=== PATIENT | male | born 1950 | race Caucasian/White ===

== ENCOUNTER 2016-08-29 19:56 | Inpatient (IN) | payer OTHER, MEDICARE ==
[~2016-08-29] VITALS: Ht 175.3 cm; Wt 136.1 kg
[~2016-08-29 19:56] MED LIST: ACIDOPHILUS1 EACH PO; ALBUTEROL2.5 MG/3 M INH/SOL; ATIVAN1 M1 PO; AZITHROMYCIN250 M1 PO; BACLOFEN20 M1 PO; CALCIUM 600+D31 EACH PO; CELEXA20 M1 PO; CO Q-10200 MG PO; DILTIAZEM 24HR120 MG PO; DOXYCYCLINE HY100 M2 PO; DULCOLAX10 M1 RC; DURAGESIC1 EACH TOP; ELIQUIS5 M1 PO; FENTANYL1 EAC4 TOP; FUROSEMIDE20 M1 PO; GABAPENTIN600 M1 PO; MAGNESIUM400 M1 PO; MIRALAX17 G1 PO; MONTELUKAST SOD10 M1 PO; MUCINEX600 M1 PO; MULTI-DAY VITA1 EACH PO; NEXIUM40 M1 PO; NORTRIPTYLINE H10 M2 PO; OXYCODONE-ACET1 EACH PO; POTASSIUM CHLO20 ME2 PO; PREDNISONE10 M2 PO; PROPOLIS PO; REPATHA SU140 MG/1 M SC; RIFADIN300 MG PO; SPIRIVA18 MCG INH; STOOL SOFTENER100 M2 PO; STRATTERA40 M1 PO; VITAMIN C500 M6 PO; VITAMIN E100 UNI2 PO
--- NOTE | 2016-08-29 19:58 | ED UPPER/LOWER EXTREMITY COMPL ---
History of Present Illness General Chief Complaint: Foot or Ankle Injury Stated Complaint: BIBA RIGHT ANKLE INJURY Source: patient Exam Limitations: no limitations Vital Signs & Intake/Output Vital Signs & Intake/Output Vital Signs Date Time Temp Pulse Resp B/P Pulse O2 O2 Flow FiO2 Ox Delivery Rate 08/29 2238 98.0 83 18 149/86 95 Nasal 2.0L Cannula 08/299 95 Nasal 2.0L Cannula 08/29 2000 97.8 117 18 154/95 94 ED Intake and Output 08/30 0000 08/29 1200 Intake Total 60 Output Total Balance 60 Intake, Oral 60 Patient 300 lb Weight Allergies Coded Allergies: haloperidol (From HALDOL) (SWELLING 04/12/16) heparin (SWELLING 04/12/16) vancomycin (HIVES, SKIN CRACKES, TURNS RED, SWELLS AND PEELS 04/12/16) warfarin (SWELLS, TURNS, RED, HIVES, SKIN CRACKS AND PEELS 04/12/16) Reconcile Medications Albuterol Sulfate (Ventolin Hfa) 90 MCG HFA.AER.AD 2 PUF INH Q4H RESPIRATORY (Reported) Ascorbate Calcium (Vitamin C) 500 MG TABLET 1 TAB PO BID SUPPLEMENT (Reported ) Atomoxetine HCl (Strattera) 40 MG CAPSULE 1 CAP PO QAM MENTAL HEALTH ( Reported) Baclofen 20 MG TABLET 1 TAB PO BID MUSCLE RELAXER (Reported) Bisacodyl (Dulcolax) 10 MG SUPP.RECT 1 SUP RC EOD GI (Reported) Diltiazem HCl (Diltiazem 24HR ER) 120 MG CAP.ER.24H 1 CAP PO DAILY HEART/BP ( Reported) Evolocumab (Repatha Sureclick) 140 MG/ML PEN.INJCTR 1 ML SC Q2W CHOLESTEROL ( Reported) Fentanyl (Duragesic) 25 MCG/HOUR PATCH.TD72 1 PAT TOP Q3D BACK PAIN (Reported ) Furosemide 20 MG TABLET 1 TAB PO EOD DIURETIC (Reported) Gabapentin 600 MG TABLET 1 TAB PO TID NEUROPATHY (Reported) Guaifenesin (Mucinex) 600 MG TAB.ER.12H 2 TAB PO BID MUCUS (Reported) Lactobacillus Acidophilus (Acidophilus) 1 EACH CAPSULE 1 CAP PO BID PROBIOTIC (Reported) Lorazepam (Ativan) 1 MG TABLET 1 TAB PO BID ANXIETY (Reported) Magnesium Oxide (Magnesium) 400 MG CAPSULE 1 CAP PO 0600 SUPPLEMENT (Reported ) Montelukast Sodium (Singulair) 10 MG TABLET 1 TAB PO DAILY ASTHMA (Reported) Multivitamin (Multi-Day Vitamins) 1 EACH TABLET 1 TAB PO DAILY SUPPLEMENT ( Reported) Nortriptyline HCl 10 MG CAPSULE 1 CAP PO QPM MENTAL HEALTH (Reported) Oxycodone HCl/Acetaminophen (Oxycodone-Acetaminophen 5-325) 5 MG-325 MG TABLET 1-2 TAB PO Q4H PRN PAIN (Reported) Pantoprazole Sodium (Protonix) 40 MG TABLET.DR 1 TAB PO DAILY ACID REFLUX ( Reported) Potassium Chloride 20 MEQ TAB.ER.PRT 1 TAB PO DAILY SUPPLEMENT (Reported) Rifampin (Rifadin) 300 MG CAPSULE 1 CAP PO BID MRSA PROPHYLAXIS (Reported) Tiotropium [place] (Spiriva) 18 MCG CAP.W.DEV 1 CAP INH DAILY BREATHING ( Reported) Vitamin E Mixed (Vitamin E) (Unknown Strength) TABLET (Unknown Dose) PO DAILY SUPPLEMENT (Reported) Triage Nurses Notes Reviewed? yes Onset: Abrupt Duration: constant Timing: single episode today Severity: severe Severity Numbers: 10 Pain/Injury Location: Right: Ankle. 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 Patient was brought in by ambulance Patient denies any head strike and pain is localized to the right ankle. (EMILIA MARSH) Past History Travel History Traveled to [place] past 21 day No Medical History Any Pertinent Medical History? 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 No (EMILIA MARSH) Review of Systems Review of Systems Constitutional: Reports: no symptoms. EENTM: Reports: no symptoms. Respiratory: Reports: no symptoms. Cardiovascular: Reports: no symptoms. Gastrointestinal/Abdominal: Reports: no symptoms. Genitourinary: Reports: no symptoms. Musculoskeletal: Reports: see HPI, joint pain, joint swelling. Skin: Reports: no symptoms. Neurological/Psychological: Reports: no symptoms. Hematologic/Endocrine: Reports: no symptoms. Immunological: Reports: no symptoms. All Other Systems: Reviewed and Negative (EMILIA MARSH) Physical Exam Physical Exam General Appearance: mild distress Neurologic/Tendon: normal sensation, normal motor functions, normal tendon functions, responds to pain, no evidence tendon injury, no pulse deficit Skin: intact, normal color, warm/dry Comments: HEENT: Normal EENT exam, Neck: Supple, no lymphadenopathy, normal range of motion without pain or tenderness Back: Nontender, no CVA tenderness. Cardiovascular: Tachycardia no murmurs rubs or gallops, normal JVP Respiratory: Chest nontender. No respiratory distress.breath sounds clear to auscultation bilaterally Abdomen: Soft, nontender nondistended, no appreciable organomegaly. Normal bowel sounds. No ascites Extremity: Right hip nontender normal inspection straight leg raise performed Right knee nontender normal inspection Right ankle noted mild deformity and swelling and point tenderness Right foot nontender pedal pulse +2 capillary refill less than 2 seconds Right lower extremity dermatomes intact Neuro: Alert oriented x3, motor sensory normal, Skin: No appreciable rash on exposed skin, skin is warm and dry. Psych: Mood and affect is normal, memory and judgment is normal. (EMILIA MARSH) Progress Differential Diagnosis: arterial insufficiency, compartment syndrome, contusion, dislocation, DVT, fracture, gout, septic arthritis, sprain, tendon injury Plan of Care: Orders Procedure Date/time Status Nothing by Mouth 08/30 B Active Vital Signs 08/30 37 Complete Teach/Educate 08/30 37 Active Pain Treatment and Response 08/30 37 Active Nutritional Intake, Monitor 08/30 37 Active Isolation 08/30 37 Active Intake & Output 08/30 37 Complete Patient Care Conference 08/30 37 Active Activity/Ambulation 04/10 0038 Active Pathway - chart 08/30 0008 Active Heat/Cold Therapy 08/30 0008 Active PT Evaluate & Treat 08/30 0003 Active Code Status 08/29 2304 Active TRC EVALUATION (GEN) 08/29 2250 Active OXYGEN SETUP (GEN) 08/29 2250 Active Pathway - chart 08/29 2250 Active House Staff 08/29 2250 Active Patient Data 08/29 2250 Active Saline Lock 08/29 2238 Active Misc Message 08/29 2238 Active ED Holding Orders 08/29 2238 Active Admit to inpatient 08/29 2238 Active Vital Signs 08/29 2238 Active Code Status 08/29 2238 Complete Patient Data 08/29 2228 Active Intake & Output 08/29 2208 Active EKG 08/29 2108 Active PARTIAL THROMBOPLASTIN TIME 08/29 2005 Complete PROTHROMBIN TIME 08/29 2005 Complete COMPREHENSIVE METABOLIC PANEL 08/30 2003 Complete CBC WITHOUT DIFFERENTIAL 08/29 2002 Complete TYPE & SCREEN (NOT X-MATCH) 08/29 2002 Complete VTE Mechanical Prophylaxis 08/29 UNK Active Vital Signs 08/29 UNK Complete MISTAKE 08/29 UNK Active Hemoccult 08/29 UNK Active Current Medications Sig/Danni Start time Last Medication Dose Stop Time Status Admin Acetaminophen 325 MG Q6P PRN 08/30 0015 AC (Tylenol) Hydromorphone HCl 0.4 MG Q6P PRN 08/30 0015 AC (Dilaudid) Oxycodone/ 1 TAB Q6P PRN 08/30 0015 AC Acetaminophen (Percocet) Laboratory Tests 08/29/161: Anion Gap 8, Estimated GFR > 60, BUN/Creatinine Ratio 26.7 H, Glucose 209 H, Calcium 10.1, Total Bilirubin 0.5, AST 44, ALT 80 H, Alkaline Phosphatase 77, Total Protein 7.1, Albumin 3.6, Globulin 3.5, Albumin/Globulin Ratio 1.0 L, PT 12.5, INR 1.19 H, APTT 31, CBC w Diff NO MAN DIFF REQ, RBC 4.77, MCV 90.1, MCH 29.1, RDW 15.2 H, MPV 8.0, Gran % 81.6 H, Lymphocytes % 8.7 L, Monocytes % 7.2, Eosinophils % 2.5, Basophils % 0 L, Absolute Granulocytes 12.8 H, Absolute Lymphocytes 1.4, Absolute Monocytes 1.1 H, Absolute Eosinophils 0.4, Absolute Basophils 0, PUBS MCHC 32.4 L No concerns of right lower extremity neurovascular compromise. No concerns of dislocation, patient does have bimalleolar fracture on x-ray findings. I discussed patient with Dr. MAN in which no emergent surgical intervention is warranted in this case Patient due to significant gait assistance necessities and fall risk and due to bimalleolar fracture that return to private residence in the emergency room with be a significant detriment to the patient and further fall risk may occur. Discussed admission with case management who approved of admission in which patient will require a three-day stay and most likely have short-term rehabilitation Posterior ankle and sugar tong splint were applied by me per he and post neurovascular was intact. Patient was given IV Dilaudid for pain which he had significant resolution of his pain (CURTIS PACKER,EMILIA) Diagnostic Imaging: Viewed by Me: Radiology Read. Radiology Impression: acute abnormality Initial ED EKG: SINUS TACHYCARDIA 109 BPM Comments: PATIENT: ESTUARDO PEREZ PRESENT AGE: 66 PATIENT ACCOUNT NO: [id number] : 49 LOCATION: [facility] ORDERING PHYSICIAN: EMILIA PACKER SERVICE DATE: 08/29/16 EXAM TYPE: RAD - XRY-ANKLE 3 OR MORE VIEWS R EXAMINATION: XR ANKLE, RIGHT CLINICAL INFORMATION: Trauma COMPARISON: None TECHNIQUE: AP, lateral, and mortise views of the right ankle. FINDINGS: There is a displaced oblique fracture involving the distal right fibula. There is lateral displacement of the distal fracture fragments. There is widening of the lateral aspect of the ankle mortise. The talar dome appears intact. There are a few fragments of bone within the ankle mortise likely related to acute injury. There is a mildly displaced fracture involving the medial malleolus with medial and inferior displacement of the distal fracture fragment. There is extensive soft tissue swelling surrounding the base of the right ankle which appears relatively hyperdense suggesting hematoma. No other definite fractures visualized. IMPRESSION: Bimalleolar comminuted mildly fractures as described with several tiny bony fragments within the ankle mortise. DICTATED BY: NEO NIETO MD DATE/TIME DICTATED:08/29/162040 MARBLE INSTALLER:PAULO (EMILIA MARSH) Departure Departure Disposition: STILL A PATIENT Condition: Stable Clinical Impression Primary Impression: Bimalleolar fracture of right ankle Referrals: STACI VOGEL,LALA Gray (PCP/Family) Departure Forms: Customer Survey General Discharge Information Admission Note Spoke With: PONCHO LOPEZ MD Documentation of Exam: Documentation of any treatments & extenuating circumstances including Concerns Regarding Discharge (functional status, medication knowledge or non-compliance, living conditions, etc.) that warrant an admission rather than observation: [ Discussed admission with Dr. LOPEZ who agrees with general medicine admission for concerns of bimalleolar fracture and fall risk. Patient will require with orthopedic consultation, IV pain medication and possible short-term placement to rehabilitation facility. Outpatient treatment at this time would be medically harmful] (EMILIA MARSH) PA/MEDICAL AFFAIRS SPECIALIST Co-Sign Statement Statement: ED Attending supervision documentation- [] I saw and evaluated the patient. I have also reviewed all the pertinent lab results and diagnostic results. I agree with the findings and the plan of care as documented in the PA's/MEDICAL AFFAIRS SPECIALIST's documentation. [x] I have reviewed the ED Record and agree with the PA's/MEDICAL AFFAIRS SPECIALIST's documentation. [] Additions or exceptions (if any) to the PAs/MEDICAL AFFAIRS SPECIALIST's note and plan are summarized below: [] ([place] VOGEL,JENNA Baptiste) Procedures Splinting Location: RIGHT ANKLE Manual Alignment Performed: No Hand-Made Type: orthoglass Splint: SUGAR TONG AND POSTERIOR ANKLE Splint Applied By: splint applied by me Pre-Proc Neuro Vasc Exam: normal Post-Proc Neuro Vasc Exam: normal (EMILIA MARSH) Critical Care Note Critical Care Note Critical Care Time: 30-74 min (EMILIA MARSH)
--- NOTE | 2016-08-29 20:47 | RADIOLOGY REPORT ---
EXAMINATION: XR ANKLE, RIGHT CLINICAL INFORMATION: Trauma COMPARISON: None TECHNIQUE: AP, lateral, and mortise views of the right ankle. FINDINGS: There is a displaced oblique fracture involving the distal right fibula. There is lateral displacement of the distal fracture fragments. There is widening of the lateral aspect of the ankle mortise. The talar dome appears intact. There are a few fragments of bone within the ankle mortise likely related to acute injury. There is a mildly displaced fracture involving the medial malleolus with medial and inferior displacement of the distal fracture fragment. There is extensive soft tissue swelling surrounding the base of the right ankle which appears relatively hyperdense suggesting hematoma. No other definite fractures visualized. IMPRESSION: Bimalleolar comminuted mildly fractures as described with several tiny bony fragments within the ankle mortise.
[2016-08-29 20:51] LABS: ABSOLUTE BASOPHIL COUNT 0 /CUMM (0.0-0.2); ABSOLUTE EOSINOPHIL COUNT 0.4 /CUMM (0.0-0.7); ABSOLUTE GRANULOCYTE CT 12.8 /CUMM (1.4-6.5); ABSOLUTE LYMPH COUNT 1.4 /CUMM (1.2-3.4); ABSOLUTE MONOCYTE COUNT 1.1 /CUMM (0.10-0.60); BASOPHIL % 0 % (0.0-2.0); EOSINOPHIL % 2.5 % (0-5); GRANULOCYTE % 81.6 % (42.2-75.2); MEAN CORPUSCULAR HGB 29.1 PG (27.0-31.0); MEAN CORPUSCULAR HGB CONC 32.4 G/DL (33.0-37.0); MEAN CORPUSCULAR VOLUME 90.1 FL (80.0-94.0); PLATELET COUNT 213 /CUMM (130-400); RBC DISTRIBUTION WIDTH 15.2 % (11.5-14.5); RED BLOOD CELL CT 4.77 /CUMM (4.70-6.10); WHITE BLOOD CELL COUNT 15.7 /CUMM (4.8-10.8)
[2016-08-29 21:04] LABS: PT 12.5 SEC (9.4-12.5); PTT 31 SEC (25-37)
[2016-08-29] MEDS ORDERED: SINGULAIR10 M1 PO (21:39)
[2016-08-29] MEDS ORDERED: PROTONIX40 M3 PO (21:41)
[2016-08-29] MEDS ORDERED: SPIRIVA18 MCG INH (21:44)
[2016-08-29] MEDS ORDERED: PREDNISONE5 M1 PO (21:45)
--- NOTE | 2016-08-30 00:43 | History & Physical ---
ROSALBA GARZA 08/30/16 0043: General Information and HPI MD Statement: I have seen and personally examined ESTUARDO PEREZ and documented this H&P. The patient is a 66 year old M who presented with a patient stated chief complaint of right ankle pain status post fall. 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 According to the patient he was in his normal state of health, patient was transferring from the toilet to his wheelchair where he subsequently fell and twisted his right ankle resulting in acute onset of sharp stabbing severe pain, 10 out of 10 and nonradiating. Patient reports hitting his head to the floor, however denied loss of consciousness. Denied any lightheadedness or dizziness before the event. He remembers the whole event. Denied any headache, weakness or sensory changes. Patient denied any fever, chills, chest pain, racing of heart, difficulty breathing, nausea, vomiting, abdominal pain, constipation or diarrhea. He is under straight cath protocol every 3-4 hours. He does have chronic cough from COPD. Denies any sick contacts or travel history. Denies smoking, alcohol abuse, illicit drug use. He has 2 visiting nurse aids to help him. patient does partially weight-bear with assistance of a walker and uses a wheelchair. He follows Kiran Bustillos MD grocery specialist and Dr. kasper car framer. According to the patient he was on eliqus 5 mg twice a day for atrial fibrillation. However he stopped eliqus 3 months ago as he feels he doesn't have atrial fibrillation. However he is on aspirin and Cardizem. He was admitted at [facility] in March 2016 for acute hypoxic respiratory failure secondary to COPD. Allergies/Medications Allergies: Coded Allergies: haloperidol (From HALDOL) (SWELLING 04/12/16) heparin (SWELLING 04/12/16) vancomycin (HIVES, SKIN CRACKES, TURNS RED, SWELLS AND PEELS 04/12/16) warfarin (SWELLS, TURNS, RED, HIVES, SKIN CRACKS AND PEELS 04/12/16) Compliance With Home Meds: GOOD Past History Travel History Traveled to [place] past 21 day No Medical History Neurological: NONE EENT: NONE Cardiovascular: AFIB, hypertension, hyperlipidemia Respiratory: asthma, COPD Gastrointestinal: NONE Hepatic: NONE Renal: neurogenic bladder Musculoskeletal: PARAPLEGIA FROM mrsa INFECTION OF SPINE Psychiatric: NONE Endocrine: NONE Blood Disorders: NONE Cancer(s): NONE CIRCLE EDGER/Reproductive: NONE History of MRSA: Yes History of VRE: No History of CDIFF: No Surgical History Surgical History: non-contributory Past Family/Social History Family History Relations & Conditions if any Relation not specified for: *No pertinent family history Psychosocial History Who Do You Live With? partner Services at Home: Home Health Aide, SAFETY LEAD MORNING & EVENING Primary Language: Burundian Smoking Status: Former Smoker ETOH Use: denies use Illicit Drug Use: denies illicit drug use Functional Ability ADLs Needs Assist: dressing, eating, toileting, bathing. Ambulation: wheelchair IADLs Independent: shopping, housework, finances, food prep, telephone, transportation , medication admin. Review of Systems Review of Systems Constitutional: Denies: chills, diaphoresis, fever, malaise, weakness, unexplained weight loss. EENTM: Denies: visual changes, hearing changes, nasal congestion, nasal pain, throat pain. Cardiovascular: Reports: peripheral edema. Denies: chest pain, orthopena, palpitations, syncope. Respiratory: Reports: cough, orthopnea. Denies: hemoptysis, short of breath, sputum production, stridor, wheezing. GI: Denies: abdominal pain, bloating, constipation, diarrhea, nausea, vomiting. Genitourinary: Denies: frequency, nocturia, pain, urgency (on straight cath protocol). Musculoskeletal: Reports: back pain, joint pain. Skin: Denies: no symptoms. Neurological/Psychological: Denies: anxiety, ataxia, confusion, depressed, dementia, headache, numbness, tingling, tremors. Exam & Diagnostic Data Last 24 Hrs of Vital Signs/I&O Vital Signs Date Time Temp Pulse Resp B/P Pulse O2 O2 Flow FiO2 Ox Delivery Rate 08/30 0208 95 Nasal 2.0L Cannula 08/30 0142 95 Nasal 2.0L Cannula 08/30 0115 97.8 100 24 174/88 95 Nasal 2.0L Cannula 08/29 2239 98.0 83 18 149/86 95 Nasal 2.0L Cannula 08/299 95 Nasal 2.0L Cannula 08/29 2000 97.8 117 18 154/95 94 Intake & Output 08/30 0800 08/30 0000 08/29 1600 Intake Total 60 Output Total Balance 60 Intake, Oral 60 Patient 136.078 kg 136.078 kg Weight Physical Exam General Appearance Alert, Oriented X3, Cooperative, No Acute Distress Skin No Rashes, No Breakdown HEENT Atraumatic, PERRLA, EOMI, Mucous Membr. moist/pink Neck Supple, No JVD Lymphatic Axillary nl, Cervical nl Cardiovascular Normal S1, Normal S2, No Murmurs Lungs Normal Air Movement, b/l wheezes Abdomen Normal Bowel Sounds, Soft, No Tenderness Neurological Normal Speech, Cranial Nerves 3-12 NL, Reflexes 2+, couldnt move lower ext- paraplegia Extremities No Clubbing, No Cyanosis, No Edema Vascular Normal Pulses Last 24 Hrs of Labs/Bryan: Laboratory Tests 08/29/162040: Anion Gap 8, Estimated GFR > 60, BUN/Creatinine Ratio 26.7 H, Glucose 209 H, Calcium 10.1, Total Bilirubin 0.5, AST 44, ALT 80 H, Alkaline Phosphatase 77, Total Protein 7.1, Albumin 3.6, Globulin 3.5, Albumin/Globulin Ratio 1.0 L, PT 12.5, INR 1.19 H, APTT 31, CBC w Diff NO MAN DIFF REQ, RBC 4.77, MCV 90.1, MCH 29.1, RDW 15.2 H, MPV 8.0, Gran % 81.6 H, Lymphocytes % 8.7 L, Monocytes % 7.2, Eosinophils % 2.5, Basophils % 0 L, Absolute Granulocytes 12.8 H, Absolute Lymphocytes 1.4, Absolute Monocytes 1.1 H, Absolute Eosinophils 0.4, Absolute Basophils 0, PUBS MCHC 32.4 L Assessment/Plan Assessment: This is a 66-year-old male with past medical history significant for COPD on 2 L home oxygen, history of intubation, bilateral lower extremity edema on Lasix, hypertension, hyperlipidemia, atrial fibrillation not on anticoagulants, history of ASTHMA, neurogenic bladder, depression, constipation, coronary artery disease status post stent placement, IVC filter placement, 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 Vitals on admission- afebrile, tachycardic 117, respiratory rate 18, blood pressure 154/95, saturating at 94 on room air. Labs-leukocytosis 15.7. Glucose 209, alt 80. Ankle x-ray Bimalleolar comminuted mildly fractures as described with several tiny bony fragments within the ankle mortise. Problem list 1. Right ankle bimalleolar comminuted fracture 2. Leukocytosis 3. COPD on 2 L oxygen 4. Chronic lower extremity edema 5. Atrial fibrillation not on anticoagulation 6. Hypertension 7. Hyperlipidemia 8. Neurogenic bladder 9. Depression 10. Constipation 11 history of MRSA spine abscess 12. Chronic back pain 13. Neuropathy 14. Anxiety 15. GERD 16. JELANI not on CPAP Right ankle bimalleolar comminuted fracture Patient presented with acute onset of right ankle pain status post witnessed a mechanical fall. 10 out of 10, sharp and stabbing, nonradiating. Ankle x-ray showed Bimalleolar comminuted mildly fractures as described with several tiny bony fragments within the ankle mortise. * Patient was admitted to general medicine floor for further management and rehabilitation placement * Monitor vitals closely * Maintain oxygen saturation above 90% * Monitor WBC count * Leukocytosis 15.7 on admission most possibly from stress * Afebrile * Pain management * Mild pain-Tylenol * Moderate pain-Percocet * Severe pain IV Dilaudid * Ortho consultation * PT evaluation Leukocytosis Most likely reactive WBC 15.7 Will check in the morning Monitor for fevers or chills Chronic lower extremity edema usually takes Lasix 60 every other day COPD History of COPD on 2 L oxygen at home Total respiratory care albuterol nebs montelukast atrial fibrillation According to the patient he was on eliqus 5 mg twice a day for atrial fibrillation. However he stopped eliqus 3 months ago as he feels he doesn't have atrial fibrillation. * Continue home dose of Cardizem * Continue aspirin Hyperlipidemia Patient usually takes evolocumab every 2 weeks. Neurogenic bladder On straight cath protocol every few hours Muscle spasms Continue baclofen History of MRSA spine abscess Patient is on prophylaxis Continue rifampin and doxycycline prophylaxis Neuropathy Continue gabapentin Anxiety Takes Ativan when necessary GERD Takes pantoprazole Obstructive sleep apnea Not on CPAP now Hyperglycemia Sugar 219 on admission Accu-Cheks Insulin sliding scale Will check HbA1c DVT prophylaxis DNR/DNI Pain management Regular diet As Ranked By This Provider Problem List: 1. ATRIAL FIBRILATION 2. Bimalleolar fracture of right ankle Core Measures/Miscellaneous Acute Coronary Syndrome ACS Diagnosis: No Cerebrovascular Accident CVA/TIA Diagnosis: No Congestive Heart Failure CHF Diagnosis: No Venous Thromboembolism VTE Risk Factors: Age > 40, Immobility, paresis No Mech VTE prophylaxis d/t: No contraindications No VTE Pharm Prophylaxis d/t: No contraindications VTE Diagnosis: No VTE Type: NONE VTE Confirmed by (Test): NONE Severe Sepsis Severe Sepsis Present: No Septic Shock Septic Shock Present: No Miscellaneous Documentation Attending Case Discussed With: PONCHO LOPEZ MD Primary Care Physician: LALA SMALL MD Patient sees these Specialists Religious Education Coordinator Components Engineer Level of Patient Care: General Medicine DOUG RODRIGUEZ 08/30/16 0103: General Information and HPI Allergies/Medications Home Med list Albuterol Sulfate (Ventolin Hfa) 90 MCG HFA.AER.AD 2 PUF INH Q4H RESPIRATORY (Reported) Ascorbate Calcium (Vitamin C) 500 MG TABLET 1 TAB PO BID SUPPLEMENT (Reported ) Aspirin (Ecotrin*) 81 MG TABLET.DR 1 TAB PO DAILY HEART (Reported) Atomoxetine HCl (Strattera) 40 MG CAPSULE 1 CAP PO QAM MENTAL HEALTH ( Reported) Baclofen 20 MG TABLET 1 TAB PO BID MUSCLE RELAXER (Reported) Bisacodyl (Dulcolax) 10 MG SUPP.RECT 1 SUP RC EOD GI (Reported) Diltiazem HCl (Diltiazem 24HR ER) 120 MG CAP.ER.24H 1 CAP PO DAILY HEART/BP ( Reported) Doxycycline Hyclate 100 MG CAPSULE 1 CAP PO BID infection (Reported) Evolocumab (Repatha Sureclick) 140 MG/ML PEN.INJCTR 1 ML SC Q2W CHOLESTEROL ( Reported) Furosemide 20 MG TABLET 3 TAB PO EOD DIURETIC (Reported) Gabapentin 600 MG TABLET 1 TAB PO TID NEUROPATHY (Reported) Guaifenesin (Mucinex) 600 MG TAB.ER.12H 2 TAB PO BID MUCUS (Reported) Lactobacillus Acidophilus (Acidophilus) 1 EACH CAPSULE 1 CAP PO BID PROBIOTIC (Reported) Lorazepam (Ativan) 1 MG TABLET 1 TAB PO BID ANXIETY (Reported) Magnesium Oxide (Magnesium) 400 MG CAPSULE 1 CAP PO 0600 SUPPLEMENT (Reported ) Montelukast Sodium (Singulair) 10 MG TABLET 1 TAB PO DAILY ASTHMA (Reported) Multivitamin (Multi-Day Vitamins) 1 EACH TABLET 1 TAB PO DAILY SUPPLEMENT ( Reported) Nortriptyline HCl 10 MG CAPSULE 1 CAP PO QPM MENTAL HEALTH (Reported) Oxycodone HCl/Acetaminophen (Oxycodone-Acetaminophen 5-325) 5 MG-325 MG TABLET 1-2 TAB PO Q4H PRN PAIN (Reported) Pantoprazole Sodium (Protonix) 40 MG TABLET.DR 1 TAB PO DAILY ACID REFLUX ( Reported) Potassium Chloride 20 MEQ TAB.ER.PRT 1 TAB PO DAILY SUPPLEMENT (Reported) Rifampin (Rifadin) 300 MG CAPSULE 1 CAP PO BID MRSA PROPHYLAXIS (Reported) Tiotropium [place] (Spiriva) 18 MCG CAP.W.DEV 1 CAP INH DAILY BREATHING ( Reported) Resident Review Statement Resident Statement: examined this patient, discussed with computer science intern, agreed with computer science intern Other Findings: Chief complaint: "Right ankle pain" This is a 66-year-old gentleman with past medical history significant for COPD on 2 L home oxygen, MRSA infection of the spine on rifampin and doxycycline, neuropathy, GERD, JELANI not on CPAP, CAD status post stent placement, hypertension , hyperlipidemia, bilateral lower extremity edema, atrial fibrillation not on anticoagulation, asthma, depression, neurogenic bladder who presents to the hospital for right ankle pain status post mechanical fall. Patient stopped his Eliquis 3 months ago by himself and mentions that his car framer Dr. Kasper is aware. Please see above for more details. Vital signs on admission: Temperature 97.8, pulse 800, respiratory rate 20, blood pressure 170/88, oxygen saturation 95% on 2 L nasal cannula oxygen. Physical exam at the time of admission: NAD, AO 3. HEENT: H NCAT, PERRLA, EOMI , moist mucous membrane, normal pharynx. Neck: Supple, no JVD, no carotid bruit. CV: RRR, no murmur. Lungs: CTA BL. Abdomen: Normal bowel sounds, soft, ND, NT. Extremities: No edema, Left lower extremity on ankle plastic splint. Posterior ankle and sugar tong splint noted on right lower extremity. Pulses intact. Neurology: Normal speech, Cranial nerves III-12 intact, normal reflexes. Right ankle x-ray on admission: Bimalleolar comminuted mildly fractures as described with several tiny bony fragments within the ankle mortise. EKG on admission: Sinus tachycardia, rate 109, no ST-T wave abnormalities, QTC 431. Echocardiogram 04/06/2010: Normal ejection fraction, mild MR, mild TR, RV systolic pressure 64. Trace TX. Mildly dilated aortic root. Problem list/plan: #Bimalleolar right ankle fracture: Orthopedic was consulted in the ED who wants to operate on the patient after a week. For now will admit the patient to general medicine floor. Adequate pain management with Tylenol, Percocet, Dilaudid. Orthopedic consult. PT evaluation. #Leukocytosis: Patient had WBC of 15.7 on admission. There is no clinical indication for an infection. Likely reactive. We will recheck levels in the morning. #Hyperglycemia: Patient presented with glucose of 209 on admission. No symptoms including polyuria, polydipsia. Accu-Cheks twice a day, Will check hemoglobin A1c. #GERD: Will maintain the patient on PPIs. #The patient is on straight cath every 3 hours at home. Will continue the same. #Will continue with TRANSPORT TRUCK DRIVER Cardizem, baclofen, rifampin, doxycycline, gabapentin, nortriptyline, lorazepam. #Please confirm patient's home medications with his PCP. #DVT prophylaxis: Alps. #Patient is DNI/DNR #Of note, patient is allergic to warfarin and heparin. JOHN VOGEL, [facility] 08/30/16 0643: Attending MD Review Statement Attending Statement Attending MD Statement: examined this patient, discuss w/resident/PA/VAMP MAKER, agreed w/resident/PA/VAMP MAKER Attending Assessment/Plan: 66 yo morbidly obese M with h/o chronic hypoxic respiratory failure, stage IV COPD on 2L O2, Afib not on Eliquis anymore, CAD s/p stent, HTN, MRSA bacteremia/ endocarditis with T6-7 spinal abscess that was never drained resulting in paraparesis now on chronic suppressive therapy with doxycycline and rifampin, PE s/p IVC filter, JELANI not using CPAP, recently admitted for COPDE (Mar 2016); is here s/p mechanical fall resulting in right ankle fracture. No syncope or head strike. Of note, patient has been off Eliquis and Dr. Kasper (Components Engineer) is aware, the reason being it is unclear if he has Afib. VSS. Labs: WBC 15.7, bicarb 37, glucose 209, ALT 80. EKG: Sinus tachycardia. Ankle Xray: bimalleolar comminuted fracture of ankle mortise. 1. Mechanical fall with resultant right ankle mortise fracture. GM admit, pain management, Ortho consult, assess timing of repair. Patient will need Cardiology and pulmonary clearance prior to ankle repair surgery. PT eval and placement. Case management consult. 2. Paraparesis. Continue straight cath protocol, and chronic suppression therapy with doxycycline and rifampin. 3. Leukocytosis likely reactive. DVT ppx Alps (patient allergic to heparin). DNR/I.
[2016-08-30 01:15] VITALS: BP 174/88
[2016-08-30] MEDS ORDERED: DOXYCYCLINE HY100 M2 PO (01:16)
[2016-08-30] MEDS ORDERED: ASPIRIN EC81 M1 PO (01:51)
--- NOTE | 2016-08-30 06:34 | Admission Certification ---
Admission Certification Certification Statement - As attending physician, I certify that at the time of - admission, based on clinical presentation, severity of - symptoms, need for further diagnostic testing and - therapeutic interventions, and risk of adverse outcomes - without in-hospital treatment, in my clinical assessment, - this patient requires an acute hospital stay for a minimum - of two nights or longer. I have also considered psychsocial - factors such as support system, advanced age, financial - issues, cognitive issues, and failed out-patient treatments, - past re-admission history, safety of patient, and lack of - compliance as applicable. Specific rationale supporting this admission is: Mechanical fall, bimalleolar right ankle fracture needs Ortho consult, possible repair, PT and placement.
[2016-08-30 06:51] VITALS: BP 160/83
--- NOTE | 2016-08-30 07:42 | PN- Housestaff ---
Subjective Follow-up For: Right ankle pain status post mechanical fall Subjective: Patient reports that his pain is better. Currently the leg is Nahum bandaged. Denies chest pain, palpitations, shortness of breath, dizziness, syncope Patient reports he has been off of a Eliquis, for the last 3 months and his primary activity specialist aware. Review of Systems Constitutional: Reports: see HPI. Objective Last 24 Hrs of Vital Signs/I&O Vital Signs Date Time Temp Pulse Resp B/P Pulse O2 O2 Flow FiO2 Ox Delivery Rate 08/30 1035 93 Nasal 2.0L Cannula 08/30 08 Nasal 2.0L Cannula 08/30 08 96 Nasal 2.0L Cannula 08/30 0800 94 Nasal 2.0L Cannula 08/30 0651 97.7 104 24 160/83 96 Nasal 2.0L Cannula 08/30 0208 95 Nasal 2.0L Cannula 08/30 0142 95 Nasal 2.0L Cannula 08/30 0115 97.8 100 24 174/88 95 Nasal 2.0L Cannula 08/29 2239 98.0 83 18 149/86 95 Nasal 2.0L Cannula 08/29 2209 95 Nasal 2.0L Cannula 08/29 2000 97.8 117 18 154/95 94 Intake & Output 08/30 1600 08/30 0800 08/30 0000 Intake Total 150 60 Output Total Balance 150 60 Intake, Oral 150 60 Patient 300 lb 300 lb Weight Physical Exam General Appearance: Alert, Oriented X3, Cooperative, No Acute Distress, Morbidly obese Skin: No Rashes Cardiovascular: Regular Rate, Normal S1, Normal S2, No Murmurs Lungs: Clear to Auscultation Abdomen: Normal Bowel Sounds, Soft, No Tenderness Neurological: Normal Speech Extremities: No Clubbing, No Cyanosis, No Edema, right ankle Nahum bandage in place. Current Medications: Current Medications Sig/Danni Start time Last Medication Dose Route Stop Time Status Admin Acetaminophen 325 MG Q6P PRN 08/30 0015 AC PO Albuterol Sulfate 3 ML EVERY 4 HRS/AWAKE 08/30 1200 AC 08/30 INH 1031 Albuterol Sulfate 3 ML ONCE ONE 08/30 0215 DC 08/30 INH 08/30 0216 0205 Aspirin Buffered 81 MG DAILY 08/30 1000 AC 08/30 PO 09 Baclofen 20 MG BID 08/30 0114 AC 08/30 PO 0914 Diltiazem HCl 120 MG DAILY 08/30 1000 AC 08/30 PO 0914 Doxycycline Hyclate 100 MG BID 08/30 0117 AC 08/30 PO 09 Gabapentin 600 MG Q8 08/30 0600 AC 08/30 PO 09 Hydromorphone HCl 0.4 MG Q6P PRN 08/30 0015 DC IV Hydromorphone HCl 1 MG ONCE ONE 08/29 2014 DC 08/29 IV 08/29 Hydromorphone HCl 0 .STK-MED ONE 08/29 2008 DC .ROUTE Lorazepam 1 MG BID 08/30 1000 AC PO Montelukast Sodium 10 MG DAILY 08/30 1000 AC 08/30 PO 09 Morphine Sulfate 2 MG Q6P PRN 08/30 0200 AC 08/30 IV 1101 Nortriptyline HCl 10 MG QPM 08/30 2200 AC PO Omeprazole 40 MG DAILY AC 08/30 0700 AC 08/30 PO 0914 Oxycodone/ 1 TAB Q6P PRN 08/30 0015 AC 08/30 Acetaminophen PO 0720 Rifampin 300 MG BID 08/30 011 AC 08/30 PO 913 Last 24 Hrs of Lab/Bryan Results Last 24 Hrs of Labs/Mics: Laboratory Tests 08/30/16 0800: Anion Gap 9, Estimated GFR > 60, BUN/Creatinine Ratio 40.0 H, CBC w Diff NO MAN DIFF REQ, RBC 4.29 L, MCV 89.9, MCH 29.4, RDW 14.9 H, MPV 8.4, Gran % 77.7 H, Lymphocytes % 11.5 L, Monocytes % 6.8, Eosinophils % 3.9, Basophils % 0.1, Absolute Granulocytes 11.9 H, Absolute Lymphocytes 1.8, Absolute Monocytes 1.0 H, Absolute Eosinophils 0.6, Absolute Basophils 0, PUBS MCHC 32.7 L 08/29/162040: Anion Gap 8, Estimated GFR > 60, BUN/Creatinine Ratio 26.7 H, Glucose 209 H, Hemoglobin A1c 5.9 H, Calcium 10.1, Total Bilirubin 0.5, AST 44, ALT 80 H, Alkaline Phosphatase 77, Total Protein 7.1, Albumin 3.6, Globulin 3.5, Albumin/ Globulin Ratio 1.0 L, PT 12.5, INR 1.19 H, APTT 31, CBC w Diff NO MAN DIFF REQ , RBC 4.77, MCV 90.1, MCH 29.1, RDW 15.2 H, MPV 8.0, Gran % 81.6 H, Lymphocytes % 8.7 L, Monocytes % 7.2, Eosinophils % 2.5, Basophils % 0 L, Absolute Granulocytes 12.8 H, Absolute Lymphocytes 1.4, Absolute Monocytes 1.1 H, Absolute Eosinophils 0.4, Absolute Basophils 0, PUBS MCHC 32.4 L Assessment/Plan Assessment: 66-year-old morbidly obese demand with history of stage IV COPD on 2 L oxygen, CAD status post stents, hypertension, 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 X-ray of the ankle showed a bimalleolar culminated fracture of ankle mortise. 1. Right ankle fracture status post mechanical fall -Patient was evaluated by orthopedics today who is planning for an inpatient procedure probably been stable -Cardiology and pulmonary clear the patient for procedure,suggested that he is at a moderate risk for complications. - Per cardiology he is not ambulating to calculate METS, but patient is able to change positions, and able to wheel himslef in the wheel chair.Unclear if he will need a stress test to obtain a cardiac clearance.We will await final recommendations from cardiology. Per his offfice records patient does not have a documented arrythmia in the past and there is no indication for him to be on AC. - Continue pain management as mentioned in med list -Patient is allergic to subcutaneous heparin (has a rash and itching) and warfarin. He reports they were never able to attain a therapeutic range. History unclear. He has been okay with Lovenox shots. Patient likewise anticoagulation postop. Would consider Lovenox. 2. Leukocytosis: - Patient has been afebrile. - if WBC continues to increase we will consider checking UA/chest xray if he has symptoms. 3. Chronic respiratory failure secondary to COPD on home oxygen -Stable we will continue his Singulair. Will follow-up pulmonary recommendation. 4. Paraplegia secondary to serious MRSA infection of the spine -Currently on chronic suppression therapy with rifampin and doxycycline. Will consult with primary care physician and confirm his home medications including his antibiotics - Continue straight cath protocol 5. Bilateral lower extremity edema - Patient takes 20 mg of Lasix every other day. - We will consider starting 20 mg Lasix every other day 6. Hypertension - Continue home medication DVT prophylaxis with Alps DNR/DNI Problem List: 1. Bimalleolar fracture of right ankle 2. Paraplegia 3. Hypertension 4. COPD Pain Ratin Pain Location: right ankle Pain Goal: Pain 4 or less Pain Plan: as mentioned in pain meds pathway Tomorrow's Labs & Rationales: Will need labs to follow up CBC
[2016-08-30 08:34] LABS: ABSOLUTE BASOPHIL COUNT 0 /CUMM (0.0-0.2); ABSOLUTE EOSINOPHIL COUNT 0.6 /CUMM (0.0-0.7); ABSOLUTE GRANULOCYTE CT 11.9 /CUMM (1.4-6.5); ABSOLUTE LYMPH COUNT 1.8 /CUMM (1.2-3.4); BASOPHIL % 0.1 % (0.0-2.0); EOSINOPHIL % 3.9 % (0-5); GRANULOCYTE % 77.7 % (42.2-75.2); HEMATOCRIT 38.6 % (42-52); MEAN CORPUSCULAR HGB 29.4 PG (27.0-31.0); MEAN CORPUSCULAR HGB CONC 32.7 G/DL (33.0-37.0); MEAN CORPUSCULAR VOLUME 89.9 FL (80.0-94.0); MEAN PLATELET VOLUME 8.4 FL (7.4-10.4); PLATELET COUNT 205 /CUMM (130-400); RBC DISTRIBUTION WIDTH 14.9 % (11.5-14.5); RED BLOOD CELL CT 4.29 /CUMM (4.70-6.10); WHITE BLOOD CELL COUNT 15.3 /CUMM (4.8-10.8)
--- NOTE | 2016-08-30 10:43 | PN- Att Addend ---
Attending Addendum Attending Brief Note Patient seen and examined, feels ok. He has some ankle pain but says that pain medicine helps. She currently denies any shortness of breath or chest pain which he has history of chronic respiratory failure and he is home oxygen dependent. Patient is admitted with mechanical fall and right ankle fracture. Vital Signs Date Time Temp Pulse Resp B/P Pulse O2 O2 Flow FiO2 Ox Delivery Rate 08/30 1035 93 Nasal 2.0L Cannula 08/30 0820 96 Nasal 2.0L Cannula 08/30 0651 97.7 104 24 160/83 96 Nasal 2.0L Cannula 08/30 0208 95 Nasal 2.0L Cannula 08/30 0142 95 Nasal 2.0L Cannula 08/30 0115 97.8 100 24 174/88 95 Nasal 2.0L Cannula 08/29 2239 98.0 83 18 149/86 95 Nasal 2.0L Cannula 08/29 2209 95 Nasal 2.0L Cannula 08/29 2000 97.8 117 18 154/95 94 on exam; aox3, nad. cv; s1,s2, rrr resp; clear abd; soft, nt, bs+ ext; trace edema ms: rle is warpped in cast and velia wrap Laboratory Tests 08/30 08/29 0800 2041 Chemistry Sodium (137 - 145 mmol/L) 139 141 Potassium (3.5 - 5.1 mmol/L) 4.2 4.3 Chloride (98 - 107 mmol/L) 98 97 L Carbon Dioxide (22 - 30 mmol/L) 32 H 37 H Anion Gap (5 - 16) 9 8 BUN (9 - 20 mg/dL) 24 H 24 H Creatinine (0.7 - 1.2 mg/dL) 0.6 L 0.9 Estimated GFR (>60 ml/min) > 60 > 60 BUN/Creatinine Ratio (7 - 25 %) 40.0 H 26.7 H Glucose (65 - 99 mg/dL) 209 H Hemoglobin A1c (4.2 - 5.8 %) 5.9 H Calcium (8.4 - 10.2 mg/dL) 10.1 Total Bilirubin (0.2 - 1.3 mg/dL) 0.5 AST (17 - 59 U/L) 44 ALT (21 - 72 U/L) 80 H Alkaline Phosphatase (< 127 U/L) 77 Total Protein (6.3 - 8.2 g/dL) 7.1 Albumin (3.5 - 5.0 g/dL) 3.6 Globulin (1.9 - 4.2 gm/dL) 3.5 Albumin/Globulin Ratio (1.1 - 2.2 %) 1.0 L Coagulation PT (9.4 - 12.5 SEC) 12.5 INR (0.90 - 1.17) 1.19 H APTT (25 - 37 SEC) 31 Hematology CBC w Diff NO MAN DIFF REQ NO MAN DIFF REQ WBC (4.8 - 10.8 /CUMM) 15.3 H 15.7 H RBC (4.70 - 6.10 /CUMM) 4.29 L 4.77 Hgb (14.0 - 18.0 G/DL) 12.6 L 13.9 L Hct (42 - 52 %) 38.6 L 43.0 MCV (80.0 - 94.0 FL) 89.9 90.1 MCH (27.0 - 31.0 PG) 29.4 29.1 RDW (11.5 - 14.5 %) 14.9 H 15.2 H Plt Count (130 - 400 /CUMM) 205 213 MPV (7.4 - 10.4 FL) 8.4 8.0 Gran % (42.2 - 75.2 %) 77.7 H 81.6 H Lymphocytes % (20.5 - 51.1 %) 11.5 L 8.7 L Monocytes % (1.7 - 9.3 %) 6.8 7.2 Eosinophils % (0 - 5 %) 3.9 2.5 Basophils % (0.0 - 2.0 %) 0.1 0 L Absolute Granulocytes (1.4 - 6.5 /CUMM) 11.9 H 12.8 H Absolute Lymphocytes (1.2 - 3.4 /CUMM) 1.8 1.4 Absolute Monocytes (0.10 - 0.60 /CUMM) 1.0 H 1.1 H Absolute Eosinophils (0.0 - 0.7 /CUMM) 0.6 0.4 Absolute Basophils (0.0 - 0.2 /CUMM) 0 0 PUBS MCHC (33.0 - 37.0 G/DL) 32.7 L 32.4 L A/P; 66 y/o M with pmh sig for ch resp failure, COPD on 2 L home oxygen, history of intubation, bilateral lower extremity edema on Lasix, hypertension, hyperlipidemia, atrial fibrillation not on anticoagulants, history of ASTHMA, neurogenic bladder, depression, constipation, coronary artery disease status post stent placement, IVC filter placement, 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 Orthopedic evaluation is elevated. We need to clarify if the plan for any inpatient or outpatient surgery. Patient for need cardiology and pulmonology evaluation for the clearance. Patient claims that he has stopped taking Eliquis about 3 months ago as he discussed with his research study assistant and it was not indicated. The balloon is his research study assistant. Continue all current medications. Pain Mx: Oxycodone and Morphine and it is adequate. DVT px: ALPS, patient allergic to heparin, warfarin.
--- NOTE | 2016-08-30 10:50 | Cons- Orthopedic ---
General Information and HPI Consulting Request Date of Consult: 08/30/16 Requested By: JOHN VOGEL,PONCHO Reason for Consult: Right ankle pain Source of Information: patient Exam Limitations: no limitations History of Present Illness: Patient is a 66-year-old who had a fall last night while transferring from the toilet back to his chair. He had an inversion injury to the right ankle. He had immediate pain and swelling. He had difficulty bearing weight and was brought emergently to [facility]. Allergies/Medications Allergies: Coded Allergies: haloperidol (From HALDOL) (SWELLING 04/12/16) heparin (SWELLING 04/12/16) vancomycin (HIVES, SKIN CRACKES, TURNS RED, SWELLS AND PEELS 04/12/16) warfarin (SWELLS, TURNS, RED, HIVES, SKIN CRACKS AND PEELS 04/12/16) Home Med List: Albuterol Sulfate (Ventolin Hfa) 90 MCG HFA.AER.AD 2 PUF INH Q4H RESPIRATORY (Reported) Ascorbate Calcium (Vitamin C) 500 MG TABLET 1 TAB PO BID SUPPLEMENT (Reported ) Aspirin (Ecotrin*) 81 MG TABLET.DR 1 TAB PO DAILY HEART (Reported) Atomoxetine HCl (Strattera) 40 MG CAPSULE 1 CAP PO QAM MENTAL HEALTH ( Reported) Baclofen 20 MG TABLET 1 TAB PO BID MUSCLE RELAXER (Reported) Bisacodyl (Dulcolax) 10 MG SUPP.RECT 1 SUP RC EOD GI (Reported) Diltiazem HCl (Diltiazem 24HR ER) 120 MG CAP.ER.24H 1 CAP PO DAILY HEART/BP ( Reported) Doxycycline Hyclate 100 MG CAPSULE 1 CAP PO BID infection (Reported) Evolocumab (Repatha Sureclick) 140 MG/ML PEN.INJCTR 1 ML SC Q2W CHOLESTEROL ( Reported) Furosemide 20 MG TABLET 3 TAB PO EOD DIURETIC (Reported) Gabapentin 600 MG TABLET 1 TAB PO TID NEUROPATHY (Reported) Guaifenesin (Mucinex) 600 MG TAB.ER.12H 2 TAB PO BID MUCUS (Reported) Lactobacillus Acidophilus (Acidophilus) 1 EACH CAPSULE 1 CAP PO BID PROBIOTIC (Reported) Lorazepam (Ativan) 1 MG TABLET 1 TAB PO BID ANXIETY (Reported) Magnesium Oxide (Magnesium) 400 MG CAPSULE 1 CAP PO 0600 SUPPLEMENT (Reported ) Montelukast Sodium (Singulair) 10 MG TABLET 1 TAB PO DAILY ASTHMA (Reported) Multivitamin (Multi-Day Vitamins) 1 EACH TABLET 1 TAB PO DAILY SUPPLEMENT ( Reported) Nortriptyline HCl 10 MG CAPSULE 1 CAP PO QPM MENTAL HEALTH (Reported) Oxycodone HCl/Acetaminophen (Oxycodone-Acetaminophen 5-325) 5 MG-325 MG TABLET 1-2 TAB PO Q4H PRN PAIN (Reported) Pantoprazole Sodium (Protonix) 40 MG TABLET.DR 1 TAB PO DAILY ACID REFLUX ( Reported) Potassium Chloride 20 MEQ TAB.ER.PRT 1 TAB PO DAILY SUPPLEMENT (Reported) Rifampin (Rifadin) 300 MG CAPSULE 1 CAP PO BID MRSA PROPHYLAXIS (Reported) Tiotropium [place] (Spiriva) 18 MCG CAP.W.DEV 1 CAP INH DAILY BREATHING ( Reported) Past History Medical History Blood Transfusion Hx: Yes Neurological: SPINAL INFECTION EENT: NONE Cardiovascular: AFIB, hypertension, hyperlipidemia Respiratory: asthma, COPD Gastrointestinal: NONE Hepatic: NONE Renal: neurogenic bladder Musculoskeletal: PARAPLEGIA FROM mrsa INFECTION OF SPINE Psychiatric: NONE Endocrine: NONE Blood Disorders: NONE Cancer(s): NONE 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 Home Who Do You Live With? 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 Ambulation: wheelchair IADLs Independent: shopping, housework, finances, food prep, telephone, transportation , medication admin. Exam & Diagnostic Data Vital Signs and I&O On physical exam the patient is awakeVital Signs Date Time Temp Pulse Resp B/P Pulse O2 O2 Flow FiO2 Ox Delivery Rate 08/30 1035 93 Nasal 2.0L Cannula 08/30 0820 96 Nasal 2.0L Cannula 08/30 0651 97.7 104 24 160/83 96 Nasal 2.0L Cannula 08/30 0208 95 Nasal 2.0L Cannula 08/30 0142 95 Nasal 2.0L Cannula 08/30 0115 97.8 100 24 174/88 95 Nasal 2.0L Cannula 08/299 98.0 83 18 149/86 95 Nasal 2.0L Cannula 08/299 95 Nasal 2.0L Cannula 08/29 2000 97.8 117 18 154/95 94 Intake & Output 08/30 0000 08/29 0000 Intake Total 150 60 Output Total Balance 150 60 Intake, Oral 150 60 Patient 300 lb 300 lb Weight On physical exam the patient is awake and alert and oriented. Head and neck exam reveals a normocephalic atraumatic skull. Pupils are equal round react to light and accommodation. Neck exam reveals no JVD in the neck is supple. Abdomen is rounded soft and nontender. Neurovascular exam reveals S1 and S2. The bilateral shoulders are within normal limits with full range of motion without pain. Bilateral upper shoulder maser her neuro-intact. Left lower extremity is grossly neuro-intact. There's no range of motion with the hip and knee or ankle. The right lotion as a splint in place. Capillary refill on the right foot is less than 2 seconds. Sensation light touch is grossly intact in his toes. X-rays of the right ankle show a displaced bimalleolar ankle fracture. Assessment/Plan Assessment/Plan Right bimalleolar ankle fracture. Patient will need surgical fixation. The ankle can be fixed either this Tuesday morning while the patient still an inpatient or we can fix it as an outpatient later in the week or early next week. I will discuss these options with the medical service and with the patient. Consult Acknowledgment - Thank you for your consult request.
--- NOTE | 2016-08-30 12:46 | Cons- Cardiology ---
General Information and HPI Consulting Request Date of Consult: 08/30/16 Requested By: JOHN VOGEL,PONCHO Reason for Consult: cad, pre-op Source of Information: patient, old records History of Present Illness: 66 y/o Male (Outbound Sales Representative is my partner Dr. Stallworth) with an extensive PMH which includes COPD on O2 (followed by Dr. Bustillos), parapalegia due to spinal abscess on chronic Abx, CAD with prior remote PCIs (), reported aortic valve endocarditis, PAF not on AC due to fall risk and low afib burden, reported DVT/PE with IVC filter, angioedema, HTN, HLD on Repatha, neurogenic bladder, and depression who presents to [facility] s/p mechanical fall while transferring from toilet to wheelchair. Not associated chest pain, dyspnea, diaphoresis, or palpitations. No orthopnea. Was seen by Orthopedics who suggested surgical correction. Denies fevers. While he is unable to ambulate he reports that he can roll his own wheelchair with no exertional symptoms and no change in his exertional tolerance. Allergies/Medications Allergies: Coded Allergies: haloperidol (From HALDOL) (SWELLING 04/12/16) heparin (SWELLING 04/12/16) vancomycin (HIVES, SKIN CRACKES, TURNS RED, SWELLS AND PEELS 04/12/16) warfarin (SWELLS, TURNS, RED, HIVES, SKIN CRACKS AND PEELS 04/12/16) Home Med List: Albuterol Sulfate (Ventolin Hfa) 90 MCG HFA.AER.AD 2 PUF INH Q4H RESPIRATORY (Reported) Ascorbate Calcium (Vitamin C) 500 MG TABLET 1 TAB PO BID SUPPLEMENT (Reported ) Aspirin (Ecotrin*) 81 MG TABLET.DR 1 TAB PO DAILY HEART (Reported) Atomoxetine HCl (Strattera) 40 MG CAPSULE 1 CAP PO QAM MENTAL HEALTH ( Reported) Baclofen 20 MG TABLET 1 TAB PO BID MUSCLE RELAXER (Reported) Bisacodyl (Dulcolax) 10 MG SUPP.RECT 1 SUP RC EOD GI (Reported) Diltiazem HCl (Diltiazem 24HR ER) 120 MG CAP.ER.24H 1 CAP PO DAILY HEART/BP ( Reported) Doxycycline Hyclate 100 MG CAPSULE 1 CAP PO BID infection (Reported) Evolocumab (Repatha Sureclick) 140 MG/ML PEN.INJCTR 1 ML SC Q2W CHOLESTEROL ( Reported) Furosemide 20 MG TABLET 3 TAB PO EOD DIURETIC (Reported) Gabapentin 600 MG TABLET 1 TAB PO TID NEUROPATHY (Reported) Guaifenesin (Mucinex) 600 MG TAB.ER.12H 2 TAB PO BID MUCUS (Reported) Lactobacillus Acidophilus (Acidophilus) 1 EACH CAPSULE 1 CAP PO BID PROBIOTIC (Reported) Lorazepam (Ativan) 1 MG TABLET 1 TAB PO BID ANXIETY (Reported) Magnesium Oxide (Magnesium) 400 MG CAPSULE 1 CAP PO 0600 SUPPLEMENT (Reported ) Montelukast Sodium (Singulair) 10 MG TABLET 1 TAB PO DAILY ASTHMA (Reported) Multivitamin (Multi-Day Vitamins) 1 EACH TABLET 1 TAB PO DAILY SUPPLEMENT ( Reported) Nortriptyline HCl 10 MG CAPSULE 1 CAP PO QPM MENTAL HEALTH (Reported) Oxycodone HCl/Acetaminophen (Oxycodone-Acetaminophen 5-325) 5 MG-325 MG TABLET 1-2 TAB PO Q4H PRN PAIN (Reported) Pantoprazole Sodium (Protonix) 40 MG TABLET.DR 1 TAB PO DAILY ACID REFLUX ( Reported) Potassium Chloride 20 MEQ TAB.ER.PRT 1 TAB PO DAILY SUPPLEMENT (Reported) Rifampin (Rifadin) 300 MG CAPSULE 1 CAP PO BID MRSA PROPHYLAXIS (Reported) Tiotropium [place] (Spiriva) 18 MCG CAP.W.DEV 1 CAP INH DAILY BREATHING ( Reported) Current Medications: Current Medications Sig/Danni Start time Last Medication Dose Route Stop Time Status Admin Acetaminophen 325 MG Q6P PRN 08/30 0015 AC PO Albuterol Sulfate 3 ML EVERY 4 HRS/AWAKE 08/30 1200 AC 08/30 INH 1031 Albuterol Sulfate 3 ML ONCE ONE 08/30 0215 DC 08/30 INH 08/30 0216 0205 Aspirin Buffered 81 MG DAILY 08/30 1000 AC 08/30 PO 09 Baclofen 20 MG BID 08/30 0114 AC 08/30 PO 09 Diltiazem HCl 120 MG DAILY 08/30 1000 AC 08/30 PO 913 Doxycycline Hyclate 100 MG BID 08/30 0117 AC 08/30 PO 913 Gabapentin 600 MG Q8 08/30 0600 AC 08/30 PO 09 Hydromorphone HCl 0.4 MG Q6P PRN 08/30 0015 DC IV Hydromorphone HCl 1 MG ONCE ONE 08/29 2014 DC 08/29 IV 08/29 Hydromorphone HCl 0 .STK-MED ONE 08/29 2008 DC .ROUTE Lorazepam 1 MG BID 08/30 1000 AC PO Montelukast Sodium 10 MG DAILY 08/30 1000 AC 08/30 PO 0914 Morphine Sulfate 2 MG Q6P PRN 08/30 0200 AC 08/30 IV 1101 Nortriptyline HCl 10 MG QPM 08/30 2200 AC PO Omeprazole 40 MG DAILY AC 08/30 0700 AC 08/30 PO 0914 Oxycodone/ 1 TAB Q6P PRN 08/30 0015 AC 08/30 Acetaminophen PO 0720 Rifampin 300 MG BID 08/30 0116 AC 08/30 PO 0914 Review of Systems Review of Systems: Review of systems as per HPI. The remainder of a 10 point review of systems was reviewed and was otherwise negative. 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 Home Who Do You Live With? 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 Ambulation: wheelchair IADLs Independent: shopping, housework, finances, food prep, telephone, transportation , medication admin. Exam & Diagnostic Data Vital Signs and I&O Vital Signs Date Time Temp Pulse Resp B/P Pulse O2 O2 Flow FiO2 Ox Delivery Rate 08/30 1035 93 Nasal 2.0L Cannula 08/30 08 Nasal 2.0L Cannula 08/30 08 96 Nasal 2.0L Cannula 08/30 0800 94 Nasal 2.0L Cannula 08/30 0651 97.7 104 24 160/83 96 Nasal 2.0L Cannula 08/30 0208 95 Nasal 2.0L Cannula 04/10 0142 95 Nasal 2.0L Cannula 08/30 114 97.8 100 24 174/88 95 Nasal 2.0L Cannula 08/29 2238 98.0 83 18 149/86 95 Nasal 2.0L Cannula 08/29 2208 95 Nasal 2.0L Cannula 08/29 2000 97.8 117 18 154/95 94 Intake & Output 08/30 0808/30 0000 08/29 0808/29 0000 Intake Total 150 60 Output Total Balance 150 60 Intake, Oral 150 60 Patient 300 lb 300 lb Weight Physical Exam: General: no apparent distress. Alert. Laying flat. Eyes: No obvious scleral icterus. HEENT: No jugular venous distention or abnormal jugular venous pulsations. Cardiovascular: Normal intensity S1/S2. PMI not grossly displaced. Respiratory: Lungs clear to auscultation bilaterally. Abdomen: Mildly distended with no guarding or rebound tenderness. Musculoskeletal: No clubbing or cyanosis noted, right lower leg immobilized Skin: warm Neurologic: Chronic paraplegia Labs/Bryan Results: Laboratory Tests 08/30 Chemistry Sodium (137 - 145 mmol/L) 139 141 Potassium (3.5 - 5.1 mmol/L) 4.2 4.3 Chloride (98 - 107 mmol/L) 98 97 L Carbon Dioxide (22 - 30 mmol/L) 32 H 37 H Anion Gap (5 - 16) 9 8 BUN (9 - 20 mg/dL) 24 H 24 H Creatinine (0.7 - 1.2 mg/dL) 0.6 L 0.9 Estimated GFR (>60 ml/min) > 60 > 60 BUN/Creatinine Ratio (7 - 25 %) 40.0 H 26.7 H Glucose (65 - 99 mg/dL) 209 H Hemoglobin A1c (4.2 - 5.8 %) 5.9 H Calcium (8.4 - 10.2 mg/dL) 10.1 Total Bilirubin (0.2 - 1.3 mg/dL) 0.5 AST (17 - 59 U/L) 44 ALT (21 - 72 U/L) 80 H Alkaline Phosphatase (< 127 U/L) 77 Total Protein (6.3 - 8.2 g/dL) 7.1 Albumin (3.5 - 5.0 g/dL) 3.6 Globulin (1.9 - 4.2 gm/dL) 3.5 Albumin/Globulin Ratio (1.1 - 2.2 %) 1.0 L Coagulation PT (9.4 - 12.5 SEC) 12.5 INR (0.90 - 1.17) 1.19 H APTT (25 - 37 SEC) 31 Hematology CBC w Diff NO MAN DIFF REQ NO MAN DIFF REQ WBC (4.8 - 10.8 /CUMM) 15.3 H 15.7 H RBC (4.70 - 6.10 /CUMM) 4.29 L 4.77 Hgb (14.0 - 18.0 G/DL) 12.6 L 13.9 L Hct (42 - 52 %) 38.6 L 43.0 MCV (80.0 - 94.0 FL) 89.9 90.1 MCH (27.0 - 31.0 PG) 29.4 29.1 RDW (11.5 - 14.5 %) 14.9 H 15.2 H Plt Count (130 - 400 /CUMM) 205 213 MPV (7.4 - 10.4 FL) 8.4 8.0 Gran % (42.2 - 75.2 %) 77.7 H 81.6 H Lymphocytes % (20.5 - 51.1 %) 11.5 L 8.7 L Monocytes % (1.7 - 9.3 %) 6.8 7.2 Eosinophils % (0 - 5 %) 3.9 2.5 Basophils % (0.0 - 2.0 %) 0.1 0 L Absolute Granulocytes (1.4 - 6.5 /CUMM) 11.9 H 12.8 H Absolute Lymphocytes (1.2 - 3.4 /CUMM) 1.8 1.4 Absolute Monocytes (0.10 - 0.60 /CUMM) 1.0 H 1.1 H Absolute Eosinophils (0.0 - 0.7 /CUMM) 0.6 0.4 Absolute Basophils (0.0 - 0.2 /CUMM) 0 0 PUBS MCHC (33.0 - 37.0 G/DL) 32.7 L 32.4 L Diagnostic Data EKG Results tracing personally reviewed, shows ST [place] [address] elevations/depressions CXR Results none on this admission CXR 03/2016: no acute disease per report Other Results ankle xray IMPRESSION: Bimalleolar comminuted mildly fractures as described with several tiny bony fragments within the ankle mortise. last echo in our office showed normal EF Assessment/Plan Assessment/Plan 1. S/p mechanical fall with malleolar fx, planned for surgical intervention per Ortho 2. CAD with remote PCI () 3. COPD on O2 (followed by Dr. Bustillos) 4. 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 PAF not on AC due to fall risk and low afib burden 6. Reported DVT/PE with reported prior IVC filter 7. HLD on Repatha (?statin intolerance) 8. Remote hx of endocarditis 9. Hx HTN Planned for orthopedic intervention. No evidence of ACS. Would need a CXR prior to surgery. Would increase the patient's extended release Cardizem to 180 mg daily. No CHF by lung exam, he is laying flat without dyspnea. No change in baseline exertional tolerance/denies exertional symptoms (wheelchair bound but rolls himself at times and transfers out of wheelchair regularly). No inpatient ischemic testing indicated at this time. Estimated to be at moderate cardiopulmonary risk for planned orthopedic intervention given medical hx. Would recommend placing the patient on telemetry for 24 hours after surgery given hx of PAF. We are considering outpatient LINQ implant in the future for better assessment of AF burden. Continue daily ASA and resume Repatha on discharge. Post-op DVT prophylaxis per Ortho. Dr. Bustillos and I discussed today and I spoke to medical housestaff as well, we are in agreement. Fercho Moreland MD [facility] Consult Acknowledgment - Thank you for your consult request.
--- NOTE | 2016-08-30 12:50 | Cons- Pulmonary ---
General Information and HPI Consulting Request Date of Consult: 08/30/16 Requested By: Dr. 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 The patient was admitted with a bi-malleoar commuted fractures with several tiny bone fragments within the ankle, following a witnessed mechanical fall. The patient is anticipating surgical intervention. At present, the patient is awake , alert and oriented. He has no shortness of breath. He has an intermittent cough which improves with nebulizer treatments. He denies any wheezing, chest congestion, chest pain, sputum production, fever or chills. Overall, he feels his respiratory status has been stable and he denies any new complaints today whatsoever. Allergies/Medications Allergies: Coded Allergies: haloperidol (From HALDOL) (SWELLING 04/12/16) heparin (SWELLING 04/12/16) vancomycin (HIVES, SKIN CRACKES, TURNS RED, SWELLS AND PEELS 04/12/16) warfarin (SWELLS, TURNS, RED, HIVES, SKIN CRACKS AND PEELS 04/12/16) Home Med List: Albuterol Sulfate (Ventolin Hfa) 90 MCG HFA.AER.AD 2 PUF INH Q4H RESPIRATORY (Reported) Ascorbate Calcium (Vitamin C) 500 MG TABLET 1 TAB PO BID SUPPLEMENT (Reported ) Aspirin (Ecotrin*) 81 MG TABLET.DR 1 TAB PO DAILY HEART (Reported) Atomoxetine HCl (Strattera) 40 MG CAPSULE 1 CAP PO QAM MENTAL HEALTH ( Reported) Baclofen 20 MG TABLET 1 TAB PO BID MUSCLE RELAXER (Reported) Bisacodyl (Dulcolax) 10 MG SUPP.RECT 1 SUP RC EOD GI (Reported) Diltiazem HCl (Diltiazem 24HR ER) 120 MG CAP.ER.24H 1 CAP PO DAILY HEART/BP ( Reported) Doxycycline Hyclate 100 MG CAPSULE 1 CAP PO BID infection (Reported) Evolocumab (Repatha Sureclick) 140 MG/ML PEN.INJCTR 1 ML SC Q2W CHOLESTEROL ( Reported) Furosemide 20 MG TABLET 3 TAB PO EOD DIURETIC (Reported) Gabapentin 600 MG TABLET 1 TAB PO TID NEUROPATHY (Reported) Guaifenesin (Mucinex) 600 MG TAB.ER.12H 2 TAB PO BID MUCUS (Reported) Lactobacillus Acidophilus (Acidophilus) 1 EACH CAPSULE 1 CAP PO BID PROBIOTIC (Reported) Lorazepam (Ativan) 1 MG TABLET 1 TAB PO BID ANXIETY (Reported) Magnesium Oxide (Magnesium) 400 MG CAPSULE 1 CAP PO 0600 SUPPLEMENT (Reported ) Montelukast Sodium (Singulair) 10 MG TABLET 1 TAB PO DAILY ASTHMA (Reported) Multivitamin (Multi-Day Vitamins) 1 EACH TABLET 1 TAB PO DAILY SUPPLEMENT ( Reported) Nortriptyline HCl 10 MG CAPSULE 1 CAP PO QPM MENTAL HEALTH (Reported) Oxycodone HCl/Acetaminophen (Oxycodone-Acetaminophen 5-325) 5 MG-325 MG TABLET 1-2 TAB PO Q4H PRN PAIN (Reported) Pantoprazole Sodium (Protonix) 40 MG TABLET.DR 1 TAB PO DAILY ACID REFLUX ( Reported) Potassium Chloride 20 MEQ TAB.ER.PRT 1 TAB PO DAILY SUPPLEMENT (Reported) Rifampin (Rifadin) 300 MG CAPSULE 1 CAP PO BID MRSA PROPHYLAXIS (Reported) Tiotropium [place] (Spiriva) 18 MCG CAP.W.DEV 1 CAP INH DAILY BREATHING ( Reported) Review of Systems Review of Systems Constitutional: Denies: no symptoms. EENTM: Denies: no symptoms. Cardiovascular: Denies: no symptoms. Respiratory: Reports: cough. Denies: hemoptysis, orthopnea, short of breath, sputum production, stridor, wheezing. GI: Reports: constipation. Denies: diarrhea, distention, bowel incontinence, melena , nausea, bloody stool, changes in stool, vomiting. Skin: Denies: no symptoms. All Other Systems: Reviewed and Negative Past History Travel History Traveled to [place] past 21 day No Medical History Blood Transfusion Hx: Yes Neurological: SPINAL INFECTION EENT: NONE Cardiovascular: AFIB, hypertension, hyperlipidemia Respiratory: asthma, COPD Gastrointestinal: NONE Hepatic: NONE Renal: neurogenic bladder Musculoskeletal: PARAPLEGIA FROM mrsa INFECTION OF SPINE Psychiatric: NONE Endocrine: NONE Blood Disorders: NONE Cancer(s): NONE CLAY TEMPERER/Reproductive: NONE Surgical History Surgical History: non-contributory Family History Relations & Conditions If Any: Relation not specified for: *No pertinent family history Psychosocial History Where Do You Live? Home Who Do You Live With? 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 Ambulation: wheelchair IADLs Independent: shopping, housework, finances, food prep, telephone, transportation , medication admin. Exam & Diagnostic Data Last 24 Hrs of Vital Signs/I&O Vital Signs Date Time Temp Pulse Resp B/P Pulse O2 O2 Flow FiO2 Ox Delivery Rate 08/30 1035 93 Nasal 2.0L Cannula 08/30 08 Nasal 2.0L Cannula 08/30 0820 96 Nasal 2.0L Cannula 08/30 0800 94 Nasal 2.0L Cannula 08/30 0651 97.7 104 24 160/83 96 Nasal 2.0L Cannula 08/30 0208 95 Nasal 2.0L Cannula 08/30 0142 95 Nasal 2.0L Cannula 08/30 0115 97.8 100 24 174/88 95 Nasal 2.0L Cannula 08/29 2239 98.0 83 18 149/86 95 Nasal 2.0L Cannula 08/29 2209 95 Nasal 2.0L Cannula 08/29 2001 97.8 117 18 154/95 94 Intake & Output 08/30 1600 08/30 0800 08/30 0000 Intake Total 150 60 Output Total Balance 150 60 Intake, Oral 150 60 Patient 300 lb 300 lb Weight Physical Exam General Appearance: no apparent distress, alert, awake, comfortable Head: atraumatic, normal appearance Eyes: Bilateral: PERRL. Neck: supple Respiratory: decreased breath sounds, no wheezes rhonchi or rales Cardiovascular: S1 and S2 heard, heart sounds are distant Gastrointestinal: normal bowel sounds, soft, non-tender Extremities: right lower extremity in a splint and dressed Skin: intact, normal color, warm/dry Last 48 Hrs of Labs/Bryan: Laboratory Tests 08/30/16 0800: Anion Gap 9, Estimated GFR > 60, BUN/Creatinine Ratio 40.0 H, CBC w Diff NO MAN DIFF REQ, RBC 4.29 L, MCV 89.9, MCH 29.4, RDW 14.9 H, MPV 8.4, Gran % 77.7 H, Lymphocytes % 11.5 L, Monocytes % 6.8, Eosinophils % 3.9, Basophils % 0.1, Absolute Granulocytes 11.9 H, Absolute Lymphocytes 1.8, Absolute Monocytes 1.0 H, Absolute Eosinophils 0.6, Absolute Basophils 0, PUBS MCHC 32.7 L 08/29/162040: Anion Gap 8, Estimated GFR > 60, BUN/Creatinine Ratio 26.7 H, Glucose 209 H, Hemoglobin A1c 5.9 H, Calcium 10.1, Total Bilirubin 0.5, AST 44, ALT 80 H, Alkaline Phosphatase 77, Total Protein 7.1, Albumin 3.6, Globulin 3.5, Albumin/ Globulin Ratio 1.0 L, PT 12.5, INR 1.19 H, APTT 31, CBC w Diff NO MAN DIFF REQ , RBC 4.77, MCV 90.1, MCH 29.1, RDW 15.2 H, MPV 8.0, Gran % 81.6 H, Lymphocytes % 8.7 L, Monocytes % 7.2, Eosinophils % 2.5, Basophils % 0 L, Absolute Granulocytes 12.8 H, Absolute Lymphocytes 1.4, Absolute Monocytes 1.1 H, Absolute Eosinophils 0.4, Absolute Basophils 0, PUBS MCHC 32.4 L Assessment/Plan Impression/Plan: 1. Stable respiratory status, chronic COPD which is oxygen dependent. 2. Right ankle fracture following mechanical witnessed fall. This will require surgical fixation. 3. 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 4. History of atrial fibrillation, not on anticoagulation. 5. History of hypertension and hyperlipidemia. 6. Obstructive sleep apnea, on nasal CPAP. Recommendations: * The patient's respiratory status appears to be stable at present. Because of his COPD, the patient is at moderate risk for pulmonary complications in the setting of general anesthesia. I would recommend regional anesthesia if possible. * Check a PA and lateral chest x-ray. * Continue nebulizer treatments every 4 hours as needed. * Continue singular 10 mg daily. * Start Symbicort 80/4.5, 2 puffs every 12 hours. * Start Spiriva 1 inhalation every morning. * Continue with pain control. * Check lower extremity Dopplers to rule out DVT. * DVT prophylaxis at all times. * Thank you, will follow. Please call if any questions. Consult Acknowledgment - Thank you for your consult request.
[2016-08-30 14:36] VITALS: BP 150/82
--- NOTE | 2016-08-30 18:48 | ULTRASOUND REPORT ---
EXAMINATION: BILATERAL LOWER EXTREMITY VENOUS ULTRASOUND CLINICAL INFORMATION: Bilateral leg swelling in a chronic paraplegic patient. Evaluate for DVT. COMPARISON: Bilateral lower extremity venous Doppler ultrasound dated 04/13/2016. TECHNIQUE: Doppler spectral analysis and color flow Doppler imaging was performed of the lower extremities. Compression and augmentation maneuvers were performed. FINDINGS: Right lower extremity venous Doppler ultrasound: The right common femoral vein, greater saphenous vein takeoff, and femoral vein are all normally compressible with normal phasic changes seen with Doppler imaging. The popliteal vein and calf veins could not be studied due to a bandage covering the lower extremity, extending from the knee down to the ankle. Left lower extremity venous Doppler ultrasound: The left common femoral vein, greater saphenous vein takeoff, femoral vein, and popliteal vein are normally compressible with normal augmentation responses and phasic changes seen with Doppler imaging. The midcalf peroneal and posterior tibial veins are patent as well. No left-sided popliteal cyst is seen. IMPRESSION: 1. Incomplete assessment of the right lower extremity due to bandage not allowing assessment of the popliteal and calf veins. Visualized portions of the deep veins in the right thigh are patent. 2. No evidence of deep venous thrombosis in the left lower extremity.
--- NOTE | 2016-08-30 19:45 | RADIOLOGY REPORT ---
EXAMINATION: XR CHEST CLINICAL INFORMATION: COPD, on home O2. Preoperative clearance. Status post fall with ankle fracture. COMPARISON: Several prior chest x-rays, most recent of which is dated 04/12/2016. The scan of the chest dated 10/31/2013. TECHNIQUE: 2 views of the chest were obtained on 4 images. FINDINGS: The cardiac size is within normal limits. Ectasia and tortuosity of the aorta is seen. Low lung volumes are seen with bibasilar volume loss and opacities. Associated small bilateral pleural effusions are also seen. There is mild central vascular congestion. No overt pulmonary edema is noted. No pneumothorax is seen. Osteopenia is suspected with mild compression deformity in the midthoracic spine, poorly seen, but similar to prior CT scan. IMPRESSION: 1. Low lung volumes with bibasilar consolidation or atelectasis. 2. Small bilateral pleural effusions. 3. Mild central vascular congestion. No overt pulmonary edema.
--- NOTE | 2016-08-30 20:11 | Event Note ---
Event Note Event Note: Subjective: Nursing staff called me for patient's complaint of "not feeling well". He had also complained of epigastric discomfort earlier to the nurse. He felt he was off and cloudy. Objective: 66 yo M in bed, resting comfortably, alert, oriented x3, denied chest pain, shortness of breath, palpitation, with vitals as: BP- 170/80, pulse- 150s irregular, temp 99.4, resp- 20, SpO2- 92% on 2L/min (baseline). Normal physical examination except: Right leg posterior slab on, irregular tachycardia. Specifically, no neuro deficit noted. Assessment and Plan: 66-year-old gentleman with history of chronic atrial fibrillation on Cardizem extended-release 120 mg daily, is having atrial flutter with some irregular waves suggestive of atrial fibrillation with rapid ventricular response, heart rate around 150s. Although the patient denied symptoms when I asked, he did have symptoms of chest discomfort and confusion when the nurse was assessing the patient prior to me. -Place the patient on registered nurse cardiac telemetry for telemetry, -We'll transfer the patient to telemetry, -IV Cardizem 5 mg to be pushed right now and watch for changes in cardiac rhythm -Will follow up with cardiology if the patient becomes symptomatic, his vitals changes or there is no control of his rate/rhythm with the 5 mg of IV Cardizem that we will be pushing right now. -Resident Dr Joseph well aware and has been guiding the decisions.
[2016-08-30 21:20] VITALS: BP 144/64
--- NOTE | 2016-08-30 21:55 | Event Note ---
Event Note Event Note: Patient converted to sinus rhythm at around 9:15 pm on the monitor, he endorses no complaints except for the pain in the ankle, denies chest pain, palpitation, headache, dizziness. HR 121, BP 144/64. T 100.1 We discussed the case with Cardiology, Dr. Grijalva on the phone and Dr. Taylor was at bedside. Plan: - EKG - metoprolol 25 mg PO once - Hold off on IV heparin as the patient reports allergies to heparin in the form of a rash - UA, UC, BC x2 - consider MRI of the spine in am
[2016-08-31 00:05] VITALS: BP 128/62
[2016-08-31 07:49] LABS: ABSOLUTE BASOPHIL COUNT 0 /CUMM (0.0-0.2); ABSOLUTE EOSINOPHIL COUNT 0.6 /CUMM (0.0-0.7); ABSOLUTE GRANULOCYTE CT 8.7 /CUMM (1.4-6.5); ABSOLUTE MONOCYTE COUNT 1.3 /CUMM (0.10-0.60); BASOPHIL % 0.1 % (0.0-2.0); EOSINOPHIL % 5.1 % (0-5); GRANULOCYTE % 68.6 % (42.2-75.2); MEAN CORPUSCULAR HGB 29.3 PG (27.0-31.0); MEAN CORPUSCULAR HGB CONC 32.8 G/DL (33.0-37.0); MEAN CORPUSCULAR VOLUME 89.5 FL (80.0-94.0); MEAN PLATELET VOLUME 8.8 FL (7.4-10.4); PLATELET COUNT 206 /CUMM (130-400); RBC DISTRIBUTION WIDTH 14.7 % (11.5-14.5); RED BLOOD CELL CT 4.13 /CUMM (4.70-6.10); WHITE BLOOD CELL COUNT 12.6 /CUMM (4.8-10.8)
[2016-08-31 08:00] VITALS: BP 152/78
--- NOTE | 2016-08-31 08:51 | PN- Housestaff ---
ANGELIC VOGEL,[facility] 08/31/16 0851: Subjective Follow-up For: Right ankle fracture status post mechanical fall Tele-Events Since Last Visit: Sinus rhythm overnight with heart rate in 90s. No other events noted. Patient had a rapid response called last evening as his heart rate was in 150s and was found to be in a flutter. He was transferred to telemetry. He converted back to sinus later during the night and has been on sinus since then. Past but denies chest pain, palpitations, shortness of breath, arm pain. Review of Systems Constitutional: Reports: see HPI. Objective Last 24 Hrs of Vital Signs/I&O Vital Signs Date Time Temp Pulse Resp B/P Pulse O2 O2 Flow FiO2 Ox Delivery Rate 08/31 08 Nasal 2.0L Cannula 08/31 08 98.9 91 20 152/78 93 Nasal 2.0L Cannula 08/31 0635 96 Nasal 2.0L Cannula 08/31 0011 99.8 08/31 0005 99.4 104 20 128/62 93 Room Air 08/31 0000 97 Nasal 2.0L Cannula 08/30 2304 100.1 08/30 2217 118 144/64 08/30 2120 100.1 124 20 144/64 93 Room Air 08/30 2020 91 Nasal 2.0L Cannula 08/30 1655 Nasal 2.0L Cannula 08/30 1600 Nasal 2.0L Cannula 08/30 1436 98.2 100 20 150/82 92 Intake & Output 08/31 1600 08/31 0800 08/31 0000 Intake Total 480 880 Output Total 700 Balance 480 180 Intake, IV 20 Intake, Oral 480 860 Output, Urine 700 Physical Exam General Appearance: Alert, Oriented X3, Cooperative, No Acute Distress Skin: No Rashes Cardiovascular: Regular Rate, Normal S1, Normal S2, No Murmurs Lungs: Clear to Auscultation Abdomen: Normal Bowel Sounds, Soft, No Tenderness Neurological: Normal Speech Extremities: no cyanosis, right lower extremity immobilized with [place]um bandage Current Medications: Current Medications Sig/Danni Start time Last Medication Dose Route Stop Time Status Admin Acetaminophen 1,000 MG ONCE ONE 08/31 1030 DC 08/31 IV 08/31 1031 1148 Acetaminophen 325 MG Q6P PRN 08/30 0015 AC 08/30 PO 2304 Albuterol Sulfate 3 ML EVERY 4 HRS/AWAKE 08/30 1200 AC 08/31 INH 1110 Aspirin Buffered 81 MG DAILY 08/30 1000 AC 08/31 PO 0922 Baclofen 20 MG BID 08/30 0114 AC 08/31 PO 0922 Bisacodyl 10 MG DAILY 08/31 1215 AC 08/31 MO 1427 Budesonide/ 2 PUF BID 08/30 1400 AC 08/31 Formoterol Fumarate INH 0921 Diltiazem HCl 180 MG DAILY 08/31 1000 AC 08/31 PO 0922 Diltiazem HCl 5 MG ONCE ONE 08/30 2014 DC IV 08/31 2015 Diltiazem HCl 120 MG DAILY 08/30 1000 DC 08/30 PO 0914 Doxycycline Hyclate 100 MG BID 08/30 0117 AC 08/31 PO 0922 Enoxaparin Sodium 100 MG ONCE ONE 08/31 1100 DC 08/31 SC 08/31 1101 1149 Enoxaparin Sodium 30 MG ONCE ONE 08/31 1100 DC 08/31 SC 08/31 1101 1149 Enoxaparin Sodium 40 MG 1800 08/30 1800 DC SC Furosemide 60 MG Q48 08/31 1215 AC 08/31 PO 1427 Gabapentin 600 MG Q8 08/30 0600 AC 08/31 PO 1427 Lorazepam 1 MG BID 08/30 1000 AC 08/30 PO 1836 Magnesium Sulfate 1 GM .STK-MED ONE 08/31 2131 DC IM 08/30 2132 Metoprolol Tartrate 25 MG ONCE ONE 08/30 2200 DC 08/30 PO 08/30 2201 2217 Montelukast Sodium 10 MG DAILY 08/30 1000 AC 08/31 PO 0922 Morphine Sulfate 2 MG Q6P PRN 08/30 0200 AC 08/31 IV 1427 Nortriptyline HCl 10 MG QPM 08/30 2200 AC 08/31 PO 0012 Omeprazole 40 MG DAILY AC 08/30 0700 AC 08/31 PO 0613 Oxycodone/ 1 TAB Q6P PRN 08/30 0015 AC 08/31 Acetaminophen PO 0613 Rifampin 300 MG BID 08/30 0116 AC 08/31 PO 0922 Tiotropium [place] 1 PUF DAILY 08/30 1400 AC 08/31 INH 0921 Last 24 Hrs of Lab/Bryan Results Last 24 Hrs of Labs/Mics: Laboratory Tests 08/31/16 0610: Anion Gap 9, Estimated GFR > 60, BUN/Creatinine Ratio 34.3 H, CBC w Diff NO MAN DIFF REQ, RBC 4.13 L, MCV 89.5, MCH 29.3, RDW 14.7 H, MPV 8.8, Gran % 68.6, Lymphocytes % 16.0 L, Monocytes % 10.2 H, Eosinophils % 5.1 H, Basophils % 0.1, Absolute Granulocytes 8.7 H, Absolute Lymphocytes 2.0, Absolute Monocytes 1.3 H, Absolute Eosinophils 0.6, Absolute Basophils 0, PUBS MCHC 32.8 L 08/30/162346: Urinalysis MOD H, Urine Color YEL, Urine Clarity CLEAR, Urine pH 7.0, Ur Specific [place] 1.015, Urine Protein 30 H, Urine Ketones 40 H, Urine Nitrite NEG, Urine Bilirubin NEG@ICTO, Urine Urobilinogen 0.2, Ur Leukocyte Esterase TRACE H, Ur Microscopic SEDIMENT EXAMINED, Urine RBC 5-10 H, Urine WBC 1-3 H, Ur Epithelial Cells FEW, Urine Bacteria FEW H, Urine Mucus MOD H, Urine Hemoglobin TRACE-INTACT H, Urine Glucose NEG 08/30/161946: Troponin I 0.02 Microbiology 08/30 2346 URINE ROUT: Urine Culture - RECD 08/30 2320 BLOOD: Blood Culture - RES 08/30 230 BLOOD: Blood Culture - RES Assessment/Plan Assessment: 66-year-old morbidly obese demand with history of stage IV COPD on 2 L oxygen, CAD status post stents, hypertension, 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 X-ray of the ankle showed a bimalleolar culminated fracture of ankle mortise. Patient was seen by orthopedic who recommended repair while he is in the hospital. Cardiology and pulmonary cleared patient for procedure. 1. Right ankle fracture status post mechanical fall -Plan for surgery on Tuesday. -We'll keep him nothing by mouth after midnight. -Cardiology and pulmonary cleared the patient for procedure,suggested that he is at a moderate risk for complications. -We will continue to monitor him on telemetry postsurgery -Patient is allergic to subcutaneous heparin (has a rash and itching) and warfarin. He reports they were never able to attain a therapeutic range. History unclear. He has been okay with Lovenox shots. - Discussed with surgical PE about starting him on Lovenox. As per the recommendation we will give the first dose of therapeutic Lovenox for anticoagulation in the setting of approximately defibrillation this a.m. We'll hold tonight's dose. -We will restart anticoagulation probably Eliquis once cleared by surgery after procedure. 2. Paroxysmal atrial fibrillation -He was not on anticoagulation given his fall risk and low A. fib burden -He did develop a flutter in the hospital yesterday. -His CHADS vasc score is 2 -He would warrant to be started on anticoagulation - We will start him on Lovenox therapeutic dose this morning( Duscussed with cardiology who agreed with the plan) . Will discuss with surgery on resuming anticoagulation probably NOAC post procedure 3. Leukocytosis: -Improving - Patient has been afebrile. -Chest x-ray showed no evidence of infection/ UA with no evidence of infection 4. Chronic respiratory failure secondary to COPD on home oxygen -Stable we will continue his Singulair. - We'll continue him on Symbicort, Spiriva, Singulair 5. Paraplegia secondary to serious MRSA infection of the spine -Currently on chronic suppression therapy with rifampin and doxycycline. Will consult with primary care physician and confirm his home medications including his antibiotics - Continue straight cath protocol 6. Bilateral lower extremity edema - Patient takes 20 mg of Lasix every other day. -Restarted 20 mg Lasix every other day 7. Hypertension - Continue home medication 8. HLD: - Resume Repatha on discharge DVT prophylaxis with Lovenox DNR/DNI Problem List: 1. Bimalleolar fracture of right ankle 2. Paraplegia 3. COPD 4. PARAPERESIS 5. Paroxysmal atrial fibrillation Pain Ratin Pain Location: RLE Pain Goal: Pain 4 or less Pain Plan: As mentioned in pain meds Tomorrow's Labs & Rationales: Will need labs MEGAN ZHANG MD 08/31/16 1109: Attending MD Review Statement Attending Statement Attending MD Statement: examined this patient, discuss w/resident/PA/FORMING AND ASSEMBLING SUPERVISOR, agreed w/resident/PA/FORMING AND ASSEMBLING SUPERVISOR, reviewed EMR data (avail) Attending Assessment/Plan: 66M PMH COPD on 2 L home oxygen, bilateral lower extremity edema on Lasix, HTN, HLD, atrial fibrillation not on anticoagulants, history of asthma, neurogenic bladder, depression, constipation, CAD s/p stent, IVC filter placement, MRSA infection of spine with T6 to T7 spinal abscess and paraplegia on rifampin and doxycycline prophylaxis, back pain, neuropathy, anxiety, GERD, JELANI not on CPAP admitted for mechanical fall while trying to pivot with right ankle fracture. Went into rapid atrial fibrillation overnight on 08/30 and converted back to NSR after a few hours. Currently asymptomatic, NSR on tele, rate controlled, exam benign, labs reviewed. 1. New onset rapid atrial fibrillation with RVR 2. Right ankle fracture 3. History of COPD 4. History of CAD Plan - Continue on telemetry - Continue Cardizem for rate control - Lovenox for a-fib, patient gets a rash with heparin - Will anti-coagulate after surgery - To OR tomomorrow for ankle repair - NPO after midnight - Check coags and type and screen tomorrow morning - Follow cardiology and pulmonary recommendations - Continue home medications
--- NOTE | 2016-08-31 09:46 | PN- Cardiology ---
Subjective Subjective: Patient feels well. He denies chest pain shortness of breath palpitations. Events of last p.m. noted. He was to have tachycardia secondary to atrial flutter with 2:1 block. He was treated with metoprolol placed on telemetry and has remained in sinus rhythm. Review of Systems: Eyes no blurred or double vision Ears no deafness or ringing Nose and throat no recurrent sinusitis Lungs per history of present illness Heart per history of present illness Abdomen no nausea vomiting Musculoskeletal right leg pain Psych no anxiety or depression Neuro without recurrent headache or seizures Endocrine no heat or cold intolerance Objective Vital Signs and I&Os Vital Signs Date Time Temp Pulse Resp B/P Pulse O2 O2 Flow FiO2 Ox Delivery Rate 09/01 799 98.9 91 20 152/78 93 Nasal 2.0L Cannula 08/31 0635 96 Nasal 2.0L Cannula 08/31 0011 99.8 08/31 0005 99.4 104 20 128/62 93 Room Air 08/31 0000 97 Nasal 2.0L Cannula 08/30 2304 100.1 08/30 2217 118 144/64 08/30 2120 100.1 124 20 144/64 93 Room Air 08/30 2020 91 Nasal 2.0L Cannula 08/30 1655 Nasal 2.0L Cannula 08/30 1600 Nasal 2.0L Cannula 08/30 1436 98.2 100 20 150/82 92 08/30 1035 93 Nasal 2.0L Cannula Intake & Output 08/31 1600 08/31 0800 08/31 0000 08/30 1600 08/30 0800 08/30 0000 Intake Total 480 880 700 150 60 Output Total 700 650 Balance 480 180 50 150 60 Intake, IV 20 Intake, Oral 480 860 700 150 60 Output, Urine 700 650 Patient 300 lb 300 lb Weight Physical Exam: Patient is a well-developed well-nourished male appearing in no acute distress HEENT is unremarkable Neck is supple there is no JVD Lungs are clear Heart regular rhythm S1 and S2 are normal no murmurs gallops or rubs Abdomen bowel sounds positive Extremities without edema right leg in [place] bandage Current Medications: Current Medications Sig/Danni Start time Last Medication Dose Route Stop Time Status Admin Acetaminophen 325 MG Q6P PRN 08/30 0015 AC 08/30 PO 2304 Albuterol Sulfate 3 ML EVERY 4 HRS/AWAKE 08/30 1200 AC 08/31 INH 0621 Aspirin Buffered 81 MG DAILY 08/30 1000 AC 08/31 PO 0922 Baclofen 20 MG BID 08/30 0114 AC 08/31 PO 0922 Budesonide/ 2 PUF BID 08/30 1400 AC 08/31 Formoterol Fumarate INH 0921 Diltiazem HCl 180 MG DAILY 08/31 1000 AC 08/31 PO 0922 Diltiazem HCl 5 MG ONCE ONE 08/30 2014 DC IV 08/31 2015 Diltiazem HCl 120 MG DAILY 08/30 1000 DC 08/30 PO 0914 Doxycycline Hyclate 100 MG BID 08/30 0117 AC 08/31 PO 0922 Enoxaparin Sodium 40 MG 1800 08/30 1800 AC SC Gabapentin 600 MG Q8 08/30 0600 AC 08/31 PO 0613 Lorazepam 1 MG BID 08/30 1000 AC 08/30 PO 1836 Magnesium Sulfate 1 GM .STK-MED ONE 08/31 2131 DC IM 08/30 2132 Metoprolol Tartrate 25 MG ONCE ONE 08/30 2200 DC 08/30 PO 08/30 2201 2217 Montelukast Sodium 10 MG DAILY 08/30 1000 AC 08/31 PO 0922 Morphine Sulfate 2 MG Q6P PRN 08/30 0200 AC 08/31 IV 0825 Nortriptyline HCl 10 MG QPM 08/30 2200 AC 08/31 PO 0012 Omeprazole 40 MG DAILY AC 08/30 0700 AC 08/31 PO 0613 Oxycodone/ 1 TAB Q6P PRN 08/30 0015 AC 08/31 Acetaminophen PO 0613 Rifampin 300 MG BID 08/30 0116 AC 08/31 PO 0922 Tiotropium [place] 1 PUF DAILY 08/30 1400 AC 08/31 INH 0921 Results Last 48 Hrs of Labs/Mics: Laboratory Tests 08/31/16 0610: Anion Gap 9, Estimated GFR > 60, BUN/Creatinine Ratio 34.3 H, CBC w Diff NO MAN DIFF REQ, RBC 4.13 L, MCV 89.5, MCH 29.3, RDW 14.7 H, MPV 8.8, Gran % 68.6, Lymphocytes % 16.0 L, Monocytes % 10.2 H, Eosinophils % 5.1 H, Basophils % 0.1, Absolute Granulocytes 8.7 H, Absolute Lymphocytes 2.0, Absolute Monocytes 1.3 H, Absolute Eosinophils 0.6, Absolute Basophils 0, PUBS MCHC 32.8 L 08/30/167: Urinalysis MOD H, Urine Color YEL, Urine Clarity CLEAR, Urine pH 7.0, Ur Specific [place] 1.015, Urine Protein 30 H, Urine Ketones 40 H, Urine Nitrite NEG, Urine Bilirubin NEG@ICTO, Urine Urobilinogen 0.2, Ur Leukocyte Esterase TRACE H, Ur Microscopic SEDIMENT EXAMINED, Urine RBC 5-10 H, Urine WBC 1-3 H, Ur Epithelial Cells FEW, Urine Bacteria FEW H, Urine Mucus MOD H, Urine Hemoglobin TRACE-INTACT H, Urine Glucose NEG 08/30/16 1947: Troponin I 0.02 08/30/16 0800: Anion Gap 9, Estimated GFR > 60, BUN/Creatinine Ratio 40.0 H, CBC w Diff NO MAN DIFF REQ, RBC 4.29 L, MCV 89.9, MCH 29.4, RDW 14.9 H, MPV 8.4, Gran % 77.7 H, Lymphocytes % 11.5 L, Monocytes % 6.8, Eosinophils % 3.9, Basophils % 0.1, Absolute Granulocytes 11.9 H, Absolute Lymphocytes 1.8, Absolute Monocytes 1.0 H, Absolute Eosinophils 0.6, Absolute Basophils 0, PUBS MCHC 32.7 L 08/29/162040: Anion Gap 8, Estimated GFR > 60, BUN/Creatinine Ratio 26.7 H, Glucose 209 H, Hemoglobin A1c 5.9 H, Calcium 10.1, Total Bilirubin 0.5, AST 44, ALT 80 H, Alkaline Phosphatase 77, Total Protein 7.1, Albumin 3.6, Globulin 3.5, Albumin/ Globulin Ratio 1.0 L, PT 12.5, INR 1.19 H, APTT 31, CBC w Diff NO MAN DIFF REQ , RBC 4.77, MCV 90.1, MCH 29.1, RDW 15.2 H, MPV 8.0, Gran % 81.6 H, Lymphocytes % 8.7 L, Monocytes % 7.2, Eosinophils % 2.5, Basophils % 0 L, Absolute Granulocytes 12.8 H, Absolute Lymphocytes 1.4, Absolute Monocytes 1.1 H, Absolute Eosinophils 0.4, Absolute Basophils 0, PUBS MCHC 32.4 L Telemetry personally reviewed sinus rhythm Recent Imaging Studies: Chest x-ray IMPRESSION: 1. Low lung volumes with bibasilar consolidation or atelectasis. 2. Small bilateral pleural effusions. 3. Mild central vascular congestion. No overt pulmonary edema. Assessment/Plan Assessment/Plan 1. S/p mechanical fall with malleolar fx, planned for surgical intervention per Ortho 2. CAD with remote PCI () 3. COPD on O2 (followed by Dr. Bustillos) 4. 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 PAF not on AC due to fall risk and low afib burden in the past currently on IV heparin 6. Reported DVT/PE with reported prior IVC filter 7. HLD on Repatha (?statin intolerance) 8. Remote hx of endocarditis 9. Hx HTN Recommendations 1. Continue current medications including increased dose of diltiazem. If patient develops recurrent A. fib/flutter would start low-dose metoprolol and blood pressure tolerates 2. Maintain telemetry 3. Due to recent documented atrial flutter overnight will readdress anticoagulation postoperatively 4. Patient is stable from the cardiac standpoint for surgery. He is consider at least moderate risk. Continue telemetry? Yes
--- NOTE | 2016-08-31 09:47 | PN- Pulmonary ---
Subjective HPI/Critical Care Issues: The patient is awake and alert. Overnight events noted. The patient continues to have right lower extremity pain. He denies any chest pain, palpitations, shortness of breath, cough, sputum production, fever or chills. Objective Current Medications: Current Medications Sig/Danni Start time Last Medication Dose Route Stop Time Status Admin Acetaminophen 325 MG Q6P PRN 08/30 0015 AC 08/30 PO 2304 Albuterol Sulfate 3 ML EVERY 4 HRS/AWAKE 08/30 1200 AC 08/31 INH 0621 Aspirin Buffered 81 MG DAILY 08/30 1000 AC 08/31 PO 0922 Baclofen 20 MG BID 08/30 0114 AC 08/31 PO 0922 Budesonide/ 2 PUF BID 08/30 1400 AC 08/31 Formoterol Fumarate INH 0921 Diltiazem HCl 180 MG DAILY 08/31 1000 AC 08/31 PO 0922 Diltiazem HCl 5 MG ONCE ONE 08/30 2014 DC IV 08/31 2015 Diltiazem HCl 120 MG DAILY 08/30 1000 DC 08/30 PO 0914 Doxycycline Hyclate 100 MG BID 08/30 0117 AC 08/31 PO 0922 Enoxaparin Sodium 40 MG 1800 08/30 1800 AC SC Gabapentin 600 MG Q8 08/30 0600 AC 08/31 PO 0613 Lorazepam 1 MG BID 08/30 1000 AC 08/30 PO 1836 Magnesium Sulfate 1 GM .STK-MED ONE 08/31 2131 DC IM 08/30 2132 Metoprolol Tartrate 25 MG ONCE ONE 08/30 2200 DC 08/30 PO 08/30 2201 2217 Montelukast Sodium 10 MG DAILY 08/30 1000 AC 08/31 PO 0922 Morphine Sulfate 2 MG Q6P PRN 08/30 0200 AC 08/31 IV 0825 Nortriptyline HCl 10 MG QPM 08/30 2200 AC 08/31 PO 0012 Omeprazole 40 MG DAILY AC 08/30 0700 AC 08/31 PO 0613 Oxycodone/ 1 TAB Q6P PRN 08/30 0015 AC 08/31 Acetaminophen PO 0613 Rifampin 300 MG BID 08/30 0116 AC 08/31 PO 0922 Tiotropium [place] 1 PUF DAILY 08/30 1400 AC 08/31 INH 0921 Vital Signs & I&O Last 24 Hrs of Vitals and I&O: Vital Signs Date Time Temp Pulse Resp B/P Pulse O2 O2 Flow FiO2 Ox Delivery Rate 08/31 08 98.9 91 20 152/78 93 Nasal 2.0L Cannula 08/31 0635 96 Nasal 2.0L Cannula 08/31 0011 99.8 08/31 0005 99.4 104 20 128/62 93 Room Air 08/31 0000 97 Nasal 2.0L Cannula 08/30 2304 100.1 08/30 2217 118 144/64 08/30 2120 100.1 124 20 144/64 93 Room Air 08/30 2020 91 Nasal 2.0L Cannula 08/30 1655 Nasal 2.0L Cannula 08/30 1600 Nasal 2.0L Cannula 08/30 1436 98.2 100 20 150/82 92 08/30 1035 93 Nasal 2.0L Cannula Intake & Output 08/31 1600 08/31 0800 08/31 0000 Intake Total 480 880 Output Total 700 Balance 480 180 Intake, IV 20 Intake, Oral 480 860 Output, Urine 700 Physical Exam General Appearance: no apparent distress, alert, awake, comfortable Head: atraumatic, normal appearance Eyes: Bilateral: PERRL. Neck: supple Respiratory: decreased breath sounds, no wheezes rhonchi or rales Cardiovascular: S1 and S2 heard, heart sounds are distant Gastrointestinal: normal bowel sounds, soft, non-tender Extremities: right lower extremity in a splint and dressed Skin: intact, normal color, warm/dry Results Last 24 Hrs of Lab Results: Laboratory Tests 08/31/16 0610: Anion Gap 9, Estimated GFR > 60, BUN/Creatinine Ratio 34.3 H, CBC w Diff NO MAN DIFF REQ, RBC 4.13 L, MCV 89.5, MCH 29.3, RDW 14.7 H, MPV 8.8, Gran % 68.6, Lymphocytes % 16.0 L, Monocytes % 10.2 H, Eosinophils % 5.1 H, Basophils % 0.1, Absolute Granulocytes 8.7 H, Absolute Lymphocytes 2.0, Absolute Monocytes 1.3 H, Absolute Eosinophils 0.6, Absolute Basophils 0, PUBS MCHC 32.8 L 08/30/16 2347: Urinalysis MOD H, Urine Color YEL, Urine Clarity CLEAR, Urine pH 7.0, Ur Specific [place] 1.015, Urine Protein 30 H, Urine Ketones 40 H, Urine Nitrite NEG, Urine Bilirubin NEG@ICTO, Urine Urobilinogen 0.2, Ur Leukocyte Esterase TRACE H, Ur Microscopic SEDIMENT EXAMINED, Urine RBC 5-10 H, Urine WBC 1-3 H, Ur Epithelial Cells FEW, Urine Bacteria FEW H, Urine Mucus MOD H, Urine Hemoglobin TRACE-INTACT H, Urine Glucose NEG 08/30/161946: Troponin I 0.02 Diagnostic Data CXR Findings: 1. Low lung volumes with bibasilar consolidation or atelectasis. 2. Small bilateral pleural effusions. 3. Mild central vascular congestion. No overt pulmonary edema. Impression/Plan Impression/Plan Impression/Plan: 1. Stable respiratory status, chronic COPD which is oxygen dependent. 2. Right ankle fracture following mechanical witnessed fall. This will require surgical fixation. 3. 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 4. Paroxysmal atrial fibrillation, not on anticoagulation. 5. History of hypertension and hyperlipidemia. 6. Obstructive sleep apnea, on nasal CPAP. Recommendations: * The patient's respiratory status appears to be stable at present. Once again, because of his COPD, the patient is at moderate risk for pulmonary complications in the setting of general anesthesia. I would recommend regional anesthesia if possible. * Continue nebulizer treatments every 4 hours as needed. * Continue Singular 10 mg daily. * Continue Symbicort 80/4.5, 2 puffs every 12 hours. * Continue Spiriva 1 inhalation every morning. * Continue with pain control - please add IV Tylenol PRN, give first dose now. * DVT prophylaxis at all times. * Await decision regarding timing of surgical intervention.
[2016-08-31 16:21] VITALS: BP 146/88
[2016-08-31 19:30] VITALS: BP 158/80
[2016-09-01] VITALS (10 sets, daily range): BP systolic 121–172; BP diastolic 62–102
--- NOTE | 2016-09-01 02:31 | Event Note ---
Event Note Event Note: I was called by the nurse that the patient is having tachycardia. I advised to have EKG state. Patient is seen and examined at the bedside. He was denying any complaints including chest pain, shortness of breath, headache, weakness in the body, palpitation. Blood pressure was 160/80. EKG showed SVT. Discussed with Dr. Taylor and Dr Moreland with the common decision of giving IV inj adenosin 6 mgs. We pushed IV adenosin, and than rhythum break into Af f/b NSR and went again back to SVT. Discussed with Dr Moreland, advised to start patient on Diltiazem drip. We gave inj Cardizem 5 mgs IV push followed by Cardizem drip @ 2.5cc/hr. We'll also send BEP,K-3.6 and Mg -1.8. We gave K -40 and Mag 400mg BID. we will follow up with blood work up.
--- NOTE | 2016-09-01 07:21 | PN- Housestaff ---
JESSY VOGEL,[facility] 09/01/16 0720: Subjective Follow-up For: 1. Right ankle fracture status post mechanical fall 2. PAF 3. episode of SVT over night Complaints: no complaints Tele-Events Since Last Visit: Episode of SVT at the rate of 160s overnight Sinus tachycardia, A. fib between 94-165 Subjective: The patient is a very pleasant man, despite a bad night he was very calm and understood the situation. The only complaint he had today in the morning was right ankle pain, 8/10, which is relieved with morphine and comes down to 6. He denied any chest pain, palpitations, lightheadedness, nausea vomiting currently even during the episode of SVT. Review of Systems Constitutional: Reports: see HPI. EENTM: Reports: no symptoms. Cardiovascular: Reports: edema, peripheral edema. Denies: chest pain, orthopena, palpitations. Respiratory: Denies: cough, hemoptysis, orthopnea, short of breath. Gastrointestinal: Reports: no symptoms. Musculoskeletal: Reports: see HPI. Objective Last 24 Hrs of Vital Signs/I&O Vital Signs Date Time Temp Pulse Resp B/P Pulse O2 O2 Flow FiO2 Ox Delivery Rate 09/01 0801 94 Nasal 2.0L Cannula 09/01 0800 98.8 93 20 134/65 95 Nasal 2.0L Cannula 09/01 0438 98.1 154 20 121/90 95 Nasal Cannula 09/01 0309 94 Nasal 2.0L Cannula 09/01 0250 156 138/80 09/01 0225 99.8 09/01 0225 161 144/102 09/01 0210 168 160/77 09/01 0210 169 160/77 09/01 0145 168 168/100 09/01 0145 140 157/83 09/01 0100 168 168/100 09/01 0017 98.7 107 24 172/67 96 Nasal 2.0L Cannula 09/01 0000 96 Nasal 2.0L Cannula 08/31 1930 150 158/80 08/31 1621 99.0 101 20 146/88 93 Nasal 1.5L Cannula 08/31 1527 95 Nasal 2.0L Cannula Intake & Output 09/01 1600 09/01 0800 09/01 0000 Intake Total 750 240 Output Total 350 900 Balance 400 -660 Intake, IV 700 Intake, Oral 50 240 Number 0 0 Bowel Movements Output, Urine 350 900 Physical Exam General Appearance: Alert, Oriented X3, Cooperative, Mild Distress Cardiovascular: Regular Rate, Normal S1, Normal S2, No Murmurs, intermittently irregular Lungs: Clear to Auscultation Abdomen: Normal Bowel Sounds, Soft, No Tenderness Neurological: Normal Speech Extremities: No Edema, Normal Pulses, no cyanosis, right lower extremity is wrapped in NOLBERTO wrap Vascular: Normal Pulses Current Medications: Current Medications Sig/Danni Start time Last Medication Dose Route Stop Time Status Admin Acetaminophen 650 MG .STK-MED ONE 09/01 0220 DC PO 09/01 0221 Acetaminophen 325 MG Q6P PRN 08/30 0015 AC 09/01 PO 0225 Adenosine 6 MG ONCE ONE 09/01 0145 DC 09/01 IV 09/01 0146 0145 Albuterol Sulfate 3 ML EVERY 4 HRS/AWAKE 08/30 1200 AC 09/01 INH 0758 Aspirin Buffered 81 MG DAILY 08/30 1000 AC 08/31 PO 0922 Baclofen 20 MG BID 08/30 0114 AC 08/31 PO 2100 Bisacodyl 10 MG DAILY 08/31 1215 AC 08/31 VT 1427 Budesonide/ 2 PUF BID 08/30 1400 AC 08/31 Formoterol Fumarate INH 2116 Diltiazem HCl 125 MG Q24H 09/01 0215 AC 09/01 Sodium Chloride 100 ML IV 0224 Diltiazem HCl 5 MG ONCE ONE 09/01 0215 DC 09/01 IV PUSH 09/01 021 0210 Diltiazem HCl 180 MG DAILY 08/31 1000 AC 08/31 PO 0922 Doxycycline Hyclate 100 MG BID 08/30 0117 AC 08/31 PO 2100 Enoxaparin Sodium 100 MG ONCE ONE 08/31 1100 DC 08/31 SC 08/31 1101 1149 Enoxaparin Sodium 30 MG ONCE ONE 08/31 1100 DC 08/31 SC 08/31 1101 1149 Furosemide 60 MG Q48 08/31 1215 AC 08/31 PO 1427 Gabapentin 600 MG Q8 08/30 0600 AC 09/01 PO 0639 Ipratropium [place] 2.5 ML ONCE ONE 09/01 0245 DC 04 INH 09/01 0246 0249 Lorazepam 1 MG BID 08/30 1000 AC 08/31 PO 2116 Magnesium Oxide 400 MG BID 09/01 0214 AC 04 PO 0223 Magnesium Sulfate 1 GM ONCE ONE 09/01 0215 CAN Dextrose/Water 100 ML IV 09/01 0614 Metoprolol Tartrate 12.5 MG BID 09/01 0159 DC PO Montelukast Sodium 10 MG DAILY 08/30 1000 AC 08/31 PO 0922 Morphine Sulfate 2 MG Q6P PRN 08/30 0200 AC 09/01 IV 0639 Nortriptyline HCl 10 MG QPM 08/30 2200 AC 08/31 PO 2101 Omeprazole 40 MG DAILY AC 08/30 0700 AC 09/01 PO 0639 Oxycodone/ 1 TAB Q6P PRN 08/30 0015 AC 08/31 Acetaminophen PO 1730 Potassium Chloride 40 MEQ ONCE ONE 09/01 0230 DC 09/01 PO 09/01 0231 0248 Potassium Chloride 40 MEQ ONCE ONE 09/01 0215 CAN PO 09/01 0216 Rifampin 300 MG BID 08/30 0116 AC 08/31 PO 2100 Sodium Chloride 1,000 ML Q13H 09/01 0000 AC 09/01 IV 09/01 1259 0000 Tiotropium [place] 1 PUF DAILY 08/30 1400 AC 08/31 INH 0921 Last 24 Hrs of Lab/Bryan Results Last 24 Hrs of Labs/Mics: Laboratory Tests 09/01/16 0714: Anion Gap 10, Estimated GFR > 60, BUN/Creatinine Ratio 30.0 H, CBC w Diff NO MAN DIFF REQ, RBC 4.32 L, MCV 89.9, MCH 29.4, RDW 14.3, MPV 8.9, Gran % 77.2 H , Lymphocytes % 11.9 L, Monocytes % 8.3, Eosinophils % 2.6, Basophils % 0 L, Absolute Granulocytes 10.7 H, Absolute Lymphocytes 1.6, Absolute Monocytes 1.1 H, Absolute Eosinophils 0.4, Absolute Basophils 0, PUBS MCHC 32.7 L 09/01/16 0126: Anion Gap 9, Estimated GFR > 60, BUN/Creatinine Ratio 31.7 H, Magnesium 1.8 Lines/Diet/Fluids Restraints: none Assessment/Plan Assessment: 66-year-old morbidly obese demand with history of stage IV COPD on 2 L oxygen, CAD status post stents, hypertension, 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 X-ray of the ankle showed a bimalleolar culminated fracture of ankle mortise. Patient was seen by orthopedic who recommended repair while he is in the hospital. Cardiology and pulmonary cleared patient for procedure on 08/31/16 for surgery on 09/01/2016. Unfortunately overnight, the patient went into tachycardia, with the EKG showing SVT, with a rate in 160s, after which she was given IV adenosine one time with no resolution of the rhythm and was eventually started on Cardizem drip that had been running all night at 15. 1. Right ankle fracture status post mechanical fall - The patient was nothing by mouth since midnight for ankle fracture repair today however overnight as mentioned above he went into SVT with rate 160s and was started on Cardizem drip eventually. In the morning heart rate was in 80s to 90s so the treatment was titrated up to 12.5. - Patient needs to be evaluated by cardiology again and the surgery has to be canceled - We will continue to monitor on telemetry - Patient is allergic to subcutaneous heparin (has a rash and itching) and warfarin. He reports they were never able to attain a therapeutic range. History unclear. He has been okay with Lovenox shots. After discussion the surgical PA he was started on Lovenox yesterday that is 08/31/2016 but yesterday night's dose was held for surgery in the morning. - We'll discuss with cardiology for restarting Lovenox as the patient is now going for surgery anymore and needs it due to history of paroxysmal A. fib -We will restart anticoagulation probably Eliquis probably once he's had the surgery 2. Episode of SVT/Paroxysmal atrial fibrillation: - He was not on anticoagulation given his fall risk and low A. fib burden - He was initially on general med where he developed atrial flutter and was transferred to telemetry, but overnight he also developed SVT with rate 160s, status post 1 dose of IV adenosine and is currently on Cardizem drip - His CHADS vasc score is 2 -Synthes on having surgery now he needs to be on anticoagulation, consider starting Lovenox today 3. Leukocytosis: -13.9, which is Up from 12.6 Yesterday, no bands - Patient has been afebrile. - Chest x-ray showed no evidence of infection/ UA with no evidence of infection 4. Chronic respiratory failure secondary to COPD on home oxygen - Stable we will continue his Singulair. - We'll continue him on Symbicort, Spiriva, Singulair 5. 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 - Continue straight cath protocol 6. Bilateral lower extremity edema - Patient takes 20 mg of Lasix every other day. - Restarted 20 mg Lasix every other day 7. Hypertension - Blood pressure 134/65 - Currently on Cardizem drip 8. HLD: - Resume Repatha on discharge DVT prophylaxis Alps, will resume Lovenox DNR/DNI Problem List: 1. COPD 2. Paroxysmal atrial fibrillation 3. Hypertension 4. Paraplegia Pain Ratin Pain Location: Right lower extremity Pain Goal: Pain 4 or less Pain Plan: oxycodone PRN Tomorrow's Labs & Rationales: CBC - LEUKOCYTOSIS BEP - MAGNESIUM, SODIUM DVT/Prophylaxis: mechanical Consulting Request: 1 Consulting Specialty: Cardiology Consulting Physician: dr. Moreland Reason for Consult: PAF, SVT Consulting Request: 2 Consulting Specialty: Orthopedics Consulting Physician: Dr. Guerrier Reason for Consult: right ankle fracture Discharge Plan Anticipated Discharge (Day): unknown MEGAN ZHANG MD 09/01/16 1528: Attending MD Review Statement Attending Statement Attending MD Statement: examined this patient, discuss w/resident/PA/PEST CONTROL SPECIALIST, agreed w/resident/PA/PEST CONTROL SPECIALIST, reviewed EMR data (avail) Attending Assessment/Plan: Agree with resident assessment and plan. Not a candidate for surgery at this time as patient is high risk due to SVT and rapid a-fib overnight. Will follow cardiology recommendations, discontinue cardizem, start Sotalol with dose-timed EKGs, start Metoprolol, obtain echocardiogram. Will speak with cardiology and orthopedics regarding timing of future ankle repair surgery. Start Eliquis as well.
[2016-09-01 09:20] LABS: ABSOLUTE BASOPHIL COUNT 0 /CUMM (0.0-0.2); ABSOLUTE EOSINOPHIL COUNT 0.4 /CUMM (0.0-0.7); ABSOLUTE GRANULOCYTE CT 10.7 /CUMM (1.4-6.5); ABSOLUTE LYMPH COUNT 1.6 /CUMM (1.2-3.4); ABSOLUTE MONOCYTE COUNT 1.1 /CUMM (0.10-0.60); BASOPHIL % 0 % (0.0-2.0); EOSINOPHIL % 2.6 % (0-5); GRANULOCYTE % 77.2 % (42.2-75.2); HEMATOCRIT 38.8 % (42-52); MEAN CORPUSCULAR HGB 29.4 PG (27.0-31.0); MEAN CORPUSCULAR HGB CONC 32.7 G/DL (33.0-37.0); MEAN CORPUSCULAR VOLUME 89.9 FL (80.0-94.0); MEAN PLATELET VOLUME 8.9 FL (7.4-10.4); PLATELET COUNT 212 /CUMM (130-400); RBC DISTRIBUTION WIDTH 14.3 % (11.5-14.5); RED BLOOD CELL CT 4.32 /CUMM (4.70-6.10); WHITE BLOOD CELL COUNT 13.9 /CUMM (4.8-10.8)
--- NOTE | 2016-09-01 09:54 | PN- Pulmonary ---
Subjective HPI/Critical Care Issues: Overnight events reviewed. The patient had an episode of SVT and was given IV adenosine without improvement. He was subsequently given an IV Cardizem push followed by a Cardizem drip. Objective Current Medications: Current Medications Sig/Danni Start time Last Medication Dose Route Stop Time Status Admin Acetaminophen 1,000 MG ONCE ONE 08/31 1030 DC 08/31 IV 08/31 1031 1148 Acetaminophen 325 MG Q6P PRN 08/30 0015 AC 09/01 PO 0225 Adenosine 6 MG ONCE ONE 09/01 0145 DC 09/01 IV 09/01 0146 0145 Albuterol Sulfate 3 ML EVERY 4 HRS/AWAKE 08/30 1200 AC 09/01 INH 0758 Aspirin Buffered 81 MG DAILY 08/30 1000 AC 08/31 PO 0922 Baclofen 20 MG BID 08/30 0114 AC 08/31 PO 2100 Bisacodyl 10 MG DAILY 08/31 1215 AC 08/31 AZ 1427 Budesonide/ 2 PUF BID 08/30 1400 AC 08/31 Formoterol Fumarate INH 2116 Diltiazem HCl 125 MG Q24H 09/01 0215 AC 09/01 Sodium Chloride 100 ML IV 0224 Diltiazem HCl 5 MG ONCE ONE 09/01 0215 DC 09/01 IV PUSH 09/01 0216 0210 Diltiazem HCl 180 MG DAILY 08/31 1000 AC 08/31 PO 0922 Doxycycline Hyclate 100 MG BID 08/30 0117 AC 08/31 PO 2100 Enoxaparin Sodium 100 MG ONCE ONE 08/31 1100 DC 08/31 SC 08/31 1101 1149 Enoxaparin Sodium 30 MG ONCE ONE 08/31 1100 DC 08/31 SC 08/31 1101 1149 Enoxaparin Sodium 40 MG 1800 08/30 1800 DC SC Furosemide 60 MG Q48 08/31 1215 AC 08/31 PO 1427 Gabapentin 600 MG Q8 08/30 0600 AC 09/01 PO 0639 Ipratropium Rydal 2.5 ML ONCE ONE 09/01 0245 DC 09/01 INH 09/01 0246 0249 Lorazepam 1 MG BID 08/30 1000 AC 08/31 PO 2116 Magnesium Oxide 400 MG BID 09/01 0214 AC 09/01 PO 0223 Magnesium Sulfate 1 GM ONCE ONE 09/01 0215 CAN Dextrose/Water 100 ML IV 09/01 0614 Metoprolol Tartrate 12.5 MG BID 09/01 0159 DC PO Montelukast Sodium 10 MG DAILY 08/30 1000 AC 08/31 PO 0922 Morphine Sulfate 2 MG Q6P PRN 08/30 0200 AC 09/01 IV 0639 Nortriptyline HCl 10 MG QPM 08/30 2200 AC 08/31 PO 2101 Omeprazole 40 MG DAILY AC 08/30 0700 AC 09/01 PO 0639 Oxycodone/ 1 TAB Q6P PRN 08/30 0015 AC 08/31 Acetaminophen PO 1730 Potassium Chloride 40 MEQ ONCE ONE 09/01 0230 DC 09/01 PO 09/01 0231 0248 Potassium Chloride 40 MEQ ONCE ONE 09/01 0215 CAN PO 09/01 0216 Rifampin 300 MG BID 08/30 0116 AC 08/31 PO 2100 Sodium Chloride 1,000 ML Q13H 09/01 0000 AC 09/01 IV 09/01 1259 0000 Tiotropium Rydal 1 PUF DAILY 08/30 1400 AC 08/31 INH 0921 Vital Signs & I&O Last 24 Hrs of Vitals and I&O: Vital Signs Date Time Temp Pulse Resp B/P Pulse O2 O2 Flow FiO2 Ox Delivery Rate 09/01 0801 94 Nasal 2.0L Cannula 09/01 0800 98.8 93 20 134/65 95 Nasal 2.0L Cannula 09/01 0438 98.1 154 20 121/90 95 Nasal Cannula 09/01 0309 94 Nasal 2.0L Cannula 09/01 0250 156 138/80 09/01 0225 99.8 09/01 0225 161 144/102 09/01 0210 168 160/77 09/01 0210 169 160/77 09/01 0145 168 168/100 09/01 0145 140 157/83 09/01 0100 168 168/100 09/01 0017 98.7 107 24 172/67 96 Nasal 2.0L Cannula 09/01 0000 96 Nasal 2.0L Cannula 08/31 1930 150 158/80 08/31 1621 99.0 101 20 146/88 93 Nasal 1.5L Cannula 08/31 1527 95 Nasal 2.0L Cannula Intake & Output 09/01 1600 09/01 0800 09/01 0000 Intake Total 750 240 Output Total 350 900 Balance 400 -660 Intake, IV 700 Intake, Oral 50 240 Number 0 0 Bowel Movements Output, Urine 350 900 Physical Exam General Appearance: no apparent distress, alert, awake, comfortable Head: atraumatic, normal appearance Eyes: Bilateral: PERRL. Neck: supple Respiratory: decreased breath sounds, no wheezes rhonchi or rales Cardiovascular: S1 and S2 heard, heart sounds are distant Gastrointestinal: normal bowel sounds, soft, non-tender Extremities: right lower extremity in a splint and dressed Skin: intact, normal color, warm/dry Impression/Plan Impression/Plan Impression/Plan: 1. Stable respiratory status, chronic COPD which is oxygen dependent. 2. Right ankle fracture following mechanical witnessed fall. This will require surgical fixation. 3. 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 4. PAF, SVT, not on outpatient anticoagulation. 5. History of hypertension and hyperlipidemia. 6. Obstructive sleep apnea, with intolerance to nasal CPAP. Recommendations: * The patient's respiratory status appears to be stable at present. Once again, because of his COPD, the patient is at moderate risk for pulmonary complications in the setting of general anesthesia. I would recommend regional anesthesia if possible. * Continue nebulizer treatments every 4 hours as needed. * Continue Singular 10 mg daily. * Continue Symbicort 80/4.5, 2 puffs every 12 hours. * Continue Spiriva 1 inhalation every morning. * Continue with pain control - please add IV Tylenol PRN, give first dose now. * DVT prophylaxis at all times. * Arrhythmia management per cardiology. * Await decision regarding timing of surgical intervention. * We will repeat an outpatient sleep study evaluation after discharge.
--- NOTE | 2016-09-01 11:46 | PN- Cardiology ---
Subjective Subjective: Patient is feeling well this morning. He denies palpitations overnight despite the rapid atrial flutter/fib. Also denies any chest pain or palpitations. Objective Vital Signs and I&Os Vital Signs Date Time Temp Pulse Resp B/P Pulse O2 O2 Flow FiO2 Ox Delivery Rate 09/01 0801 94 Nasal 2.0L Cannula 09/01 0800 98.8 93 20 134/65 95 Nasal 2.0L Cannula 09/01 0438 98.1 154 20 121/90 95 Nasal Cannula 09/01 0309 94 Nasal 2.0L Cannula 09/01 0250 156 138/80 09/01 0225 99.8 09/01 0225 161 144/102 09/01 0210 168 160/77 09/01 0210 169 160/77 09/01 0145 168 168/100 09/01 0145 140 157/83 09/01 0100 168 168/100 09/01 0017 98.7 107 24 172/67 96 Nasal 2.0L Cannula 09/01 0000 96 Nasal 2.0L Cannula 08/31 1930 150 158/80 08/31 1621 99.0 101 20 146/88 93 Nasal 1.5L Cannula 08/31 1527 95 Nasal 2.0L Cannula Intake & Output 09/01 1600 09/01 0800 09/01 0000 08/31 1600 08/31 0800 08/31 0000 Intake Total 750 240 580 480 880 Output Total 350 900 350 700 Balance 400 -660 230 480 180 Intake, IV 700 100 20 Intake, Oral 50 240 480 480 860 Number 0 0 Bowel Movements Output, Urine 350 900 350 700 Physical Exam: General: no apparent distress. Alert. Eyes: No obvious scleral icterus. HEENT: No jugular venous distention or abnormal jugular venous pulsations. Cardiovascular: Normal intensity S1/S2. Regular. Respiratory: Lungs clear to auscultation bilaterally. Abdomen: Mildly distended with no guarding or rebound tenderness. Musculoskeletal: No clubbing or cyanosis noted, right lower leg immobilized Skin: warm Neurologic: Chronic paraplegia Current Medications: Current Medications Sig/Danni Start time Last Medication Dose Route Stop Time Status Admin Acetaminophen 650 MG .STK-MED ONE 09/02 219 DC PO 09/01 220 Acetaminophen 325 MG Q6P PRN 08/30 0015 AC 09/01 PO 0225 Adenosine 6 MG ONCE ONE 09/01 144 DC 09/01 IV 09/01 0146 0145 Albuterol Sulfate 3 ML EVERY 4 HRS/AWAKE 08/30 1200 AC 09/01 INH 0758 Aspirin Buffered 81 MG DAILY 08/30 1000 AC 09/01 PO 1115 Baclofen 20 MG BID 08/30 0114 AC 09/01 PO 1115 Bisacodyl 10 MG DAILY 08/31 1215 AC 08/31 ID 1427 Budesonide/ 2 PUF BID 08/30 1400 AC 09/01 Formoterol Fumarate INH 1123 Diltiazem HCl 125 MG Q24H 09/01 0215 AC 09/01 Sodium Chloride 100 ML IV 0224 Diltiazem HCl 5 MG ONCE ONE 09/01 0215 DC 09/01 IV PUSH 09/01 0216 0210 Diltiazem HCl 180 MG DAILY 08/31 1000 AC 09/01 PO 1115 Doxycycline Hyclate 100 MG BID 08/30 0117 AC 09/01 PO 1116 Furosemide 60 MG Q48 08/31 1215 AC 08/31 PO 1427 Gabapentin 600 MG Q8 08/30 0600 AC 09/01 PO 0639 Ipratropium [place]y 2.5 ML ONCE ONE 09/01 0245 DC 09/01 INH 09/01 0246 0249 Lorazepam 1 MG BID 08/30 1000 AC 09/01 PO 1116 Magnesium Oxide 400 MG BID 09/01 0214 AC 09/01 PO 1115 Magnesium Sulfate 1 GM ONCE ONE 09/01 0215 CAN Dextrose/Water 100 ML IV 09/01 0614 Metoprolol Tartrate 12.5 MG BID 09/01 0159 DC PO Montelukast Sodium 10 MG DAILY 08/30 1000 AC 09/01 PO 1116 Morphine Sulfate 2 MG Q6P PRN 08/30 0200 AC 09/01 IV 1117 Nortriptyline HCl 10 MG QPM 08/30 2200 AC 08/31 PO 2101 Omeprazole 40 MG DAILY AC 08/30 0700 AC 09/01 PO 0639 Oxycodone/ 1 TAB Q6P PRN 08/30 0015 AC 08/31 Acetaminophen PO 1730 Potassium Chloride 40 MEQ ONCE ONE 09/01 0230 DC 09/01 PO 09/01 0231 0248 Potassium Chloride 40 MEQ ONCE ONE 09/01 0215 CAN PO 09/01 0216 Rifampin 300 MG BID 08/30 0116 AC 09/01 PO 1115 Sodium Chloride 1,000 ML Q13H 09/01 0000 AC 09/01 IV 09/01 1259 0000 Tiotropium [place]y 1 PUF DAILY 08/30 1400 AC 09/01 INH 1123 Results Last 48 Hrs of Labs/Mics: Laboratory Tests 09/01/16 0714: Anion Gap 10, Estimated GFR > 60, BUN/Creatinine Ratio 30.0 H, CBC w Diff NO MAN DIFF REQ, RBC 4.32 L, MCV 89.9, MCH 29.4, RDW 14.3, MPV 8.9, Gran % 77.2 H , Lymphocytes % 11.9 L, Monocytes % 8.3, Eosinophils % 2.6, Basophils % 0 L, Absolute Granulocytes 10.7 H, Absolute Lymphocytes 1.6, Absolute Monocytes 1.1 H, Absolute Eosinophils 0.4, Absolute Basophils 0, PUBS MCHC 32.7 L 09/01/16 0126: Anion Gap 9, Estimated GFR > 60, BUN/Creatinine Ratio 31.7 H, Magnesium 1.8 08/31/16 0610: Anion Gap 9, Estimated GFR > 60, BUN/Creatinine Ratio 34.3 H, CBC w Diff NO MAN DIFF REQ, RBC 4.13 L, MCV 89.5, MCH 29.3, RDW 14.7 H, MPV 8.8, Gran % 68.6, Lymphocytes % 16.0 L, Monocytes % 10.2 H, Eosinophils % 5.1 H, Basophils % 0.1, Absolute Granulocytes 8.7 H, Absolute Lymphocytes 2.0, Absolute Monocytes 1.3 H, Absolute Eosinophils 0.6, Absolute Basophils 0, PUBS MCHC 32.8 L 08/30/16 3147: Urinalysis MOD H, Urine Color YEL, Urine Clarity CLEAR, Urine pH 7.0, Ur Specific Kenney 1.015, Urine Protein 30 H, Urine Ketones 40 H, Urine Nitrite NEG, Urine Bilirubin NEG@ICTO, Urine Urobilinogen 0.2, Ur Leukocyte Esterase TRACE H, Ur Microscopic SEDIMENT EXAMINED, Urine RBC 5-10 H, Urine WBC 1-3 H, Ur Epithelial Cells FEW, Urine Bacteria FEW H, Urine Mucus MOD H, Urine Hemoglobin TRACE-INTACT H, Urine Glucose NEG 08/30/167: Troponin I 0.02 Recent Imaging Studies: Telemetry tracings were personally reviewed and show paroxysmal atrial flutter with occasional degeneration to atrial fibrillation, spontaneous conversion back to sinus rhythm this morning Twelve-lead ECG tracings from overnight show narrow complex tachycardia, a continuous 12-lead during adenosine administration was performed and reviewed Assessment/Plan Assessment/Plan 1. S/p mechanical fall with malleolar fx, planned for surgical intervention per Ortho 2. CAD with remote PCI () 3. COPD on O2 (followed by Dr. Bustillos) 4. 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 PAFl/AF 6. Reported DVT/PE with reported prior IVC filter 7. HLD on Repatha (?statin intolerance) 8. Remote hx of endocarditis 9. Hx HTN The patient again went into a rapid narrow complex tachycardia overnight. He remained asymptomatic during the episode was no hemodynamic instability. I spoke to the housestaff overnight on multiple occasions. We did give him a dose of adenosine but he remained in his arrhythmia. He was initiated on intravenous Cardizem drip and spontaneously converted to sinus rhythm this morning. Given the recurrent arrhythmia his orthopedic surgery is being postponed. Given the recurrent arrhythmia with the significant tachycardia will plan for rhythm control strategy. Amiodarone would be less than ideal given his history of lung disease and Flecainide would also not be recommended in the setting of known coronary artery disease. For that reason recommend initiating him on sotalol 80 mg by mouth every 12 and obtain EKGs after administration of each dose to monitor QT closely. Discontinue Cardizem drip and start on metoprolol 25 mg by mouth twice a day. Obtain a transthoracic echocardiogram given the recurrent arrhythmia. Would also initiate on Eliquis 5 mg by mouth twice a day for thromboembolic protection. The above plan was discussed at length with the patient and the medical attending today. We are in agreement. The patient may be a candidate for atrial arrhythmia ablation in the future depending on arrhythmia burden. He should be continued on telemetry without any interruption while we initiate him on sotalol therapy. Fercho Moreland MD LOCATED WITHIN [facility] Continue telemetry? Yes
--- NOTE | 2016-09-02 07:24 | PN- Housestaff ---
JESSY VOGEL,[facility] 09/02/16 0723: Subjective Follow-up For: 1. Right ankle fracture status post mechanical fall 2. PAF 3. episode of SVT over night Tele-Events Since Last Visit: NSR @ 75 - 82, no events Subjective: The patient feels well except for pain in his right ankle, 8/10, gets better with pain medications. He also reported he slept well last night. Denies any chest pains, palpitations, SOb, fever or chills. Review of Systems Constitutional: Reports: see HPI. Cardiovascular: Denies: chest pain, orthopena, palpitations, peripheral edema. Respiratory: Reports: no symptoms. Gastrointestinal: Reports: no symptoms. Genitourinary: Reports: no symptoms. Musculoskeletal: Reports: see HPI. Objective Last 24 Hrs of Vital Signs/I&O Vital Signs Date Time Temp Pulse Resp B/P Pulse O2 O2 Flow FiO2 Ox Delivery Rate 09/02 0814 94 Nasal 2.0L Cannula 09/02 0458 96 Nasal 2.0L Cannula 09/02 0000 94 Nasal 2.0L Cannula 09/01 2309 97.6 78 20 138/70 94 Nasal 2.0L Cannula 09/01 2113 98 138/70 09/01 1600 94 Nasal 2.0L Cannula 09/01 1530 98.7 77 20 146/62 96 Nasal 2.0L Cannula 09/01 1527 Nasal 2.0L Cannula 09/01 1446 Nasal 2.0L Cannula 09/01 1421 93 134/65 Intake & Output 09/02 1600 09/02 0800 09/02 0000 Intake Total 50 480 Output Total 450 200 Balance -400 280 Intake, Oral 50 480 Number 0 0 Bowel Movements Output, Urine 450 200 Physical Exam General Appearance: Alert, Oriented X3, Cooperative, No Acute Distress Cardiovascular: Regular Rate, Normal S1, Normal S2, No Murmurs Lungs: Clear to Auscultation, decreased breath sound bilaterally Abdomen: Normal Bowel Sounds, Soft, No Tenderness Neurological: Normal Speech, Sensation Intact, quadraplegic Extremities: Normal Pulses, edema on the feet, right ankle and leg are wrapped in NOLBERTO bandage Vascular: Normal Pulses Last 24 Hrs of Lab/Bryan Results Last 24 Hrs of Labs/Mics: Laboratory Tests 09/02/16 0620: Anion Gap 5, Estimated GFR > 60, BUN/Creatinine Ratio 35.0 H, Magnesium 2.2, CBC w Diff NO MAN DIFF REQ, RBC 3.98 L, MCV 89.4, MCH 29.5, RDW 14.4, MPV 8.9, Gran % 76.6 H, Lymphocytes % 10.8 L, Monocytes % 6.9, Eosinophils % 5.7 H, Basophils % 0 L, Absolute Granulocytes 11.3 H, Absolute Lymphocytes 1.6, Absolute Monocytes 1.0 H, Absolute Eosinophils 0.8, Absolute Basophils 0, PUBS MCHC 33.0 Orders CIWA Score (last 24 hrs): [id number] Lines/Diet/Fluids Lines: peripheral lines Assessment/Plan Assessment: 66-year-old morbidly obese demand with history of stage IV COPD on 2 L oxygen, CAD status post stents, hypertension, 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 X-ray of the ankle showed a bimalleolar culminated fracture of ankle mortise. Patient was seen by orthopedic who recommended repair while he is in the hospital. Cardiology and pulmonary cleared patient for procedure on 08/31/16 for surgery on 09/01/2016. Unfortunately overnight, the patient went into tachycardia, with the EKG showing SVT, with a rate in 160s, after which she was given IV adenosine one time with no resolution of the rhythm and was eventually started on Cardizem drip that had been running all night at 15. 1. Right ankle fracture status post mechanical fall - The patient had an event where he had narrow complex tachycardia over night on 09/01/16, his ankel surgery was cancelled - he has remained stable since sam past 24 hours and is cleared for surgery from cardiac stand point per Dr. Pope - Spoke with Dr. Guerrier. The patient is NWB on right leg, stable and the surgery is non-urgent. Will manage by NOLBERTO wrap, immobilization and pain control for now, and have him follow up with Dr. Guerrier after discharge for further planning for surgery 2. Episode of SVT/Paroxysmal atrial fibrillation: - The patient had an event of SVT/narrow complex tachycardia on 09/01/16 around 2 am. At that time he was given a push of adenosine followed by cardizem drip - Currently on Sotalol 80 mg BID, with EKGs after every dose. Last EKG showed QTc of 452 - On Metoprolol 25 mg po BID - Eliquis 5 mg BID - ECHO done and shows an EF of 60-65% 3. Leukocytosis: - 14.7 today, no bands. The WBC count is trending up - Patient has been afebrile. - Chest x-ray showed no evidence of infection/ UA with no evidence of infection - Will monitor for now 4. Chronic respiratory failure secondary to COPD on home oxygen - Stable we will continue his Singulair. - We'll continue him on Symbicort, Spiriva, Singulair 5. 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 - Continue straight cath protocol 6. Bilateral lower extremity edema - Patient takes 20 mg of Lasix every other day. - Restarted 20 mg Lasix every other day 7. Hypertension - Blood pressure 134/65 - Currently on Cardizem drip 8. HLD: - Resume Repatha on discharge DVT prophylaxis: Eliquis DNR/DNI Problem List: 1. Bimalleolar fracture of right ankle 2. Paraplegia 3. Hypertension 4. COPD exacerbation 5. Paroxysmal atrial fibrillation 6. SVT (supraventricular tachycardia) Pain Ratin Pain Location: right ankle Pain Goal: Pain 4 or less Pain Plan: IV Morphine 2 mg Q6PRN Oxycodone 1 tab Q6P Tomorrow's Labs & Rationales: Not needed DVT/Prophylaxis: pharmacological Consulting Request: 1 Consulting Specialty: Orthopedics Consulting Physician: Dr. Guerrier Reason for Consult: right ankle fracture Consulting Request: 2 Consulting Specialty: Cardiology Consulting Physician: Dr. Moreland Reason for Consult: SVT and PAF Discharge Plan [facility] Stable for Discharge? Yes Anticipated Discharge (Day): today If Discharged Today/In 24 Hrs: enter ant[facility] discharge ord, W-10/discharge paper done, DC summary done, CMR done MEGAN ZHANG MD 09/02/16 1030: Attending MD Review Statement Attending Statement Attending MD Statement: examined this patient, discuss w/resident/PA/SEXOLOGIST, agreed w/resident/PA/SEXOLOGIST, reviewed EMR data (avail) Attending Assessment/Plan: 66M PMH COPD on 2L home oxygen, CAD s/p PCI, HTN, MRSA bacteremia/endocarditis with T6-7 spinal abscesses resulting in paraparesis on chronic suppressive therapy with doxycycline and rifampin, PE s/p IVC filter, JELANI not on CPAP admitted with mechanical fall and right ankle fracture. Patient was scheduled for ORIF on 09/01 but had episode of SVT the night before requiring Adenosine pushes and Cardizem drip resulting in cancellation of surgery. The patient has since been started on Sotalol and Metoprolol, with tentative plan for FUNMI/ cardioversion on 09/03 if SVT/a-fib persists. Today the patient has no complaints and feels well. He is in NSR on telemetry with no events. EKG's done post Sotalol dosing are NSR without prolonged QTc. 1. Mechanical fall 2. Right bimalleolar comminuted fractures 3. Supraventricular tachycardia 4. Rapid atrial fibrillation with RVR 5. COPD 6. Chronic hypoxemic respiratory failure 7. History of mRSA spinal abscesses and endocarditis 8. JELANI Plan - Continue on telemetry - Follow cardiology and orthopedic recommendations - Continue Sotalol - Decrease Metoprolol per cardiology recommendations - Continue Eliquis - Continue home medications - PT evaluation
[2016-09-02 08:00] VITALS: BP 140/76
[2016-09-02 08:02] LABS: ABSOLUTE BASOPHIL COUNT 0 /CUMM (0.0-0.2); ABSOLUTE EOSINOPHIL COUNT 0.8 /CUMM (0.0-0.7); ABSOLUTE GRANULOCYTE CT 11.3 /CUMM (1.4-6.5); ABSOLUTE LYMPH COUNT 1.6 /CUMM (1.2-3.4); BASOPHIL % 0 % (0.0-2.0); EOSINOPHIL % 5.7 % (0-5); GRANULOCYTE % 76.6 % (42.2-75.2); HEMATOCRIT 35.6 % (42-52); MEAN CORPUSCULAR HGB 29.5 PG (27.0-31.0); MEAN CORPUSCULAR VOLUME 89.4 FL (80.0-94.0); MEAN PLATELET VOLUME 8.9 FL (7.4-10.4); PLATELET COUNT 229 /CUMM (130-400); RBC DISTRIBUTION WIDTH 14.4 % (11.5-14.5); RED BLOOD CELL CT 3.98 /CUMM (4.70-6.10); WHITE BLOOD CELL COUNT 14.7 /CUMM (4.8-10.8)
--- NOTE | 2016-09-02 10:05 | PN- Cardiology ---
Subjective Subjective: Telemetry reviewed. Sinus rhythm throughout. EKGs were recorded showed no evidence of QT prolongation. Objective Vital Signs and I&Os Vital Signs Date Time Temp Pulse Resp B/P Pulse O2 O2 Flow FiO2 Ox Delivery Rate 09/02 0957 76 140/76 09/02 0814 94 Nasal 2.0L Cannula 09/02 0800 98.3 76 20 140/76 94 Nasal 2.0L Cannula 09/02 0458 96 Nasal 2.0L Cannula 09/02 0000 94 Nasal 2.0L Cannula 09/01 2309 97.6 78 20 138/70 94 Nasal 2.0L Cannula 09/01 2113 98 138/70 09/01 1600 94 Nasal 2.0L Cannula 09/01 1530 98.7 77 20 146/62 96 Nasal 2.0L Cannula 09/01 1527 Nasal 2.0L Cannula 09/01 1446 Nasal 2.0L Cannula 09/01 1421 93 134/65 Intake & Output 09/02 1600 09/02 0800 09/02 0000 09/01 1600 09/01 0800 09/01 0000 Intake Total 50 480 950 750 240 Output Total 450 200 600 350 900 Balance -400 280 350 400 -660 Intake, IV 625 700 Intake, Oral 50 480 325 50 240 Number 0 0 0 0 0 Bowel Movements Output, Urine 450 200 600 350 900 Physical Exam: Gen. exam patient comfortable Head normocephalic atraumatic Eyes sclera anicteric conjunctiva showed no pallor extraocular muscles were normal Chest lungs were clear bilaterally Heart regular rhythm with a 1/6 systolic murmur Abdomen soft no organomegaly bowel sounds normal Extremities right leg in a wrap due to ankle fracture. Neurological no gross motor or sensory deficits Current Medications: Current Medications Sig/Danni Start time Last Medication Dose Route Stop Time Status Admin Acetaminophen 650 MG .STK-MED ONE 09/01 1617 DC PO 09/01 1618 Acetaminophen 325 MG Q6P PRN 08/30 0015 AC 09/01 PO 0225 Albuterol Sulfate 3 ML EVERY 4 HRS/AWAKE 08/30 1200 AC 09/02 INH 0808 Apixaban 5 MG BID 09/01 1137 AC 09/02 PO 0956 Aspirin Buffered 81 MG DAILY 08/30 1000 AC 09/02 PO 0956 Baclofen 20 MG BID 08/30 0114 AC 09/02 PO 0957 Bisacodyl 10 MG .STK-MED ONE 09/01 1102 DC OH 09/01 1103 Bisacodyl 10 MG DAILY 08/31 1215 AC 08/31 OH 1427 Budesonide/ 2 PUF BID 08/30 1400 AC 09/02 Formoterol Fumarate INH 0956 Diltiazem HCl 125 MG Q24H 09/01 0215 DC 09/01 Sodium Chloride 100 ML IV 0224 Diltiazem HCl 180 MG DAILY 08/31 1000 DC 09/01 PO 1115 Doxycycline Hyclate 100 MG BID 08/30 0117 AC 09/02 PO 0957 Furosemide 60 MG Q48 08/31 1215 AC 09/02 PO 0956 Gabapentin 600 MG Q8 08/30 0600 AC 09/02 PO 0636 Lorazepam 1 MG BID 08/30 1000 AC 09/01 PO 2112 Magnesium Oxide 400 MG BID 09/01 0214 AC 09/02 PO 0957 Melatonin 5 MG ONCE ONE 09/01 2100 DC 09/01 PO 09/01 2101 2112 Metoprolol Tartrate 25 MG BID 09/01 1138 AC 09/02 PO 0957 Montelukast Sodium 10 MG DAILY 08/30 1000 AC 09/02 PO 0957 Morphine Sulfate 2 MG Q6P PRN 08/30 0200 AC 09/02 IV 0646 Nortriptyline HCl 10 MG QPM 08/30 2200 AC 09/01 PO 2112 Omeprazole 40 MG DAILY AC 08/30 0700 AC 09/02 PO 0635 Oxycodone/ 1 TAB Q6P PRN 08/30 0015 AC 09/02 Acetaminophen PO 0955 Rifampin 300 MG BID 08/30 0116 AC 09/02 PO 0957 Sodium Chloride 1,000 ML Q13H 09/01 0000 DC 09/01 IV 09/01 1259 0000 Sotalol HCl 80 MG BID 09/01 1137 AC 09/02 PO 0234 Tiotropium [place] 1 PUF DAILY 08/30 1400 AC 09/02 INH 0955 Results Last 48 Hrs of Labs/Mics: Laboratory Tests 09/02/16 0620: Anion Gap 5, Estimated GFR > 60, BUN/Creatinine Ratio 35.0 H, Magnesium 2.2, CBC w Diff NO MAN DIFF REQ, RBC 3.98 L, MCV 89.4, MCH 29.5, RDW 14.4, MPV 8.9, Gran % 76.6 H, Lymphocytes % 10.8 L, Monocytes % 6.9, Eosinophils % 5.7 H, Basophils % 0 L, Absolute Granulocytes 11.3 H, Absolute Lymphocytes 1.6, Absolute Monocytes 1.0 H, Absolute Eosinophils 0.8, Absolute Basophils 0, PUBS MCHC 33.0 09/01/16 0714: Anion Gap 10, Estimated GFR > 60, BUN/Creatinine Ratio 30.0 H, CBC w Diff NO MAN DIFF REQ, RBC 4.32 L, MCV 89.9, MCH 29.4, RDW 14.3, MPV 8.9, Gran % 77.2 H , Lymphocytes % 11.9 L, Monocytes % 8.3, Eosinophils % 2.6, Basophils % 0 L, Absolute Granulocytes 10.7 H, Absolute Lymphocytes 1.6, Absolute Monocytes 1.1 H, Absolute Eosinophils 0.4, Absolute Basophils 0, PUBS MCHC 32.7 L 09/01/16 0126: Anion Gap 9, Estimated GFR > 60, BUN/Creatinine Ratio 31.7 H, Magnesium 1.8 Assessment/Plan Assessment/Plan In summary this 66-year-old gentleman has the following problems 1. S/p mechanical fall with malleolar fx, planned for surgical intervention per Ortho 2. CAD with remote PCI () 3. COPD on O2 (followed by Dr. Bustillos) 4. 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 PAFl/AF 6. Reported DVT/PE with reported prior IVC filter 7. HLD on Repatha (?statin intolerance) 8. Remote hx of endocarditis 9. Hx HTN He was started on sotalol 80 mg twice a day for paroxysmal atrial for ablation. QT interval appears normal. I would continue sotalol and Elliquis,, and decrease metoprolol to 12.5 mg twice a day perhaps stopping this medication in 2 days since patient is on sotalol. I believe surgical intervention could be considered next week after withholding anticoagulation for 48 hours prior to surgery Continue telemetry? Yes
--- NOTE | 2016-09-02 11:31 | PN- Pulmonary ---
Subjective HPI/Critical Care Issues: The patient did not go for surgery yesterday due to his cardiac status. The patient is currently awake and alert and reports having ongoing pain in his right lower extremity. He denies any respiratory issues. He remains on supplemental oxygen at 2 L/m which is chronic. Objective Current Medications: Current Medications Sig/Danni Start time Last Medication Dose Route Stop Time Status Admin Acetaminophen 650 MG .STK-MED ONE 09/01 1617 DC PO 09/01 1618 Acetaminophen 325 MG Q6P PRN 08/30 0015 AC 09/01 PO 0225 Albuterol Sulfate 3 ML EVERY 4 HRS/AWAKE 08/30 1200 AC 09/02 INH 0808 Apixaban 5 MG BID 09/01 1137 AC 09/02 PO 0956 Aspirin Buffered 81 MG DAILY 08/30 1000 AC 09/02 PO 0956 Baclofen 20 MG BID 08/30 0114 AC 09/02 PO 0957 Bisacodyl 10 MG DAILY 08/31 1215 AC 09/02 HI 1054 Budesonide/ 2 PUF BID 08/30 1400 AC 09/02 Formoterol Fumarate INH 0956 Diltiazem HCl 125 MG Q24H 09/01 0215 DC 09/01 Sodium Chloride 100 ML IV 0224 Diltiazem HCl 180 MG DAILY 08/31 1000 DC 09/01 PO 1115 Doxycycline Hyclate 100 MG BID 08/30 0117 AC 09/02 PO 0957 Furosemide 60 MG Q48 08/31 1215 AC 09/02 PO 0956 Gabapentin 600 MG Q8 08/30 0600 AC 09/02 PO 0636 Lorazepam 1 MG BID 08/30 1000 AC 09/01 PO 2112 Magnesium Oxide 400 MG BID 09/01 0214 AC 09/02 PO 0957 Melatonin 5 MG ONCE ONE 09/01 2100 DC 09/01 PO 09/01 2101 2112 Metoprolol Tartrate 25 MG BID 09/01 1138 AC 09/02 PO 0957 Montelukast Sodium 10 MG DAILY 08/30 1000 AC 09/02 PO 0957 Morphine Sulfate 2 MG Q6P PRN 08/30 0200 AC 09/02 IV 0646 Nortriptyline HCl 10 MG QPM 08/30 2200 AC 09/01 PO 2112 Omeprazole 40 MG DAILY AC 08/30 0700 AC 09/02 PO 0635 Oxycodone/ 1 TAB Q6P PRN 08/30 0015 AC 09/02 Acetaminophen PO 0955 Rifampin 300 MG BID 08/30 0116 AC 09/02 PO 0957 Sodium Chloride 1,000 ML Q13H 09/01 0000 DC 09/01 IV 09/01 1259 0000 Sotalol HCl 80 MG BID 09/01 1137 AC 09/02 PO 1054 Tiotropium [place] 1 PUF DAILY 08/30 1400 AC 09/02 INH 0955 Vital Signs & I&O Last 24 Hrs of Vitals and I&O: Vital Signs Date Time Temp Pulse Resp B/P Pulse O2 O2 Flow FiO2 Ox Delivery Rate 09/02 0957 76 140/76 09/02 0814 94 Nasal 2.0L Cannula 09/02 0800 Nasal 2.0L Cannula 09/02 0800 98.3 76 20 140/76 94 Nasal 2.0L Cannula 09/02 0458 96 Nasal 2.0L Cannula 09/02 0000 94 Nasal 2.0L Cannula 09/01 2309 97.6 78 20 138/70 94 Nasal 2.0L Cannula 09/01 2113 98 138/70 09/01 1600 94 Nasal 2.0L Cannula 09/01 1530 98.7 77 20 146/62 96 Nasal 2.0L Cannula 09/01 1527 Nasal 2.0L Cannula 09/01 1446 Nasal 2.0L Cannula 09/01 1421 93 134/65 Intake & Output 09/02 1600 09/02 0800 09/02 0000 Intake Total 50 480 Output Total 450 200 Balance -400 280 Intake, Oral 50 480 Number 0 0 Bowel Movements Output, Urine 450 200 General Appearance: no apparent distress, alert, awake, comfortable Head: atraumatic, normal appearance Eyes: Bilateral: PERRL. Neck: supple Respiratory: decreased breath sounds, no wheezes rhonchi or rales Cardiovascular: S1 and S2 heard, heart sounds are distant Gastrointestinal: normal bowel sounds, soft, non-tender Extremities: right lower extremity in a splint and dressed Skin: intact, normal color, warm/dry Results Last 24 Hrs of Lab Results: Laboratory Tests 09/02/16 0620: Anion Gap 5, Estimated GFR > 60, BUN/Creatinine Ratio 35.0 H, Magnesium 2.2, CBC w Diff NO MAN DIFF REQ, RBC 3.98 L, MCV 89.4, MCH 29.5, RDW 14.4, MPV 8.9, Gran % 76.6 H, Lymphocytes % 10.8 L, Monocytes % 6.9, Eosinophils % 5.7 H, Basophils % 0 L, Absolute Granulocytes 11.3 H, Absolute Lymphocytes 1.6, Absolute Monocytes 1.0 H, Absolute Eosinophils 0.8, Absolute Basophils 0, PUBS MCHC 33.0 Impression/Plan Impression/Plan Impression/Plan: 1. Stable respiratory status, chronic COPD which is oxygen dependent. 2. Right ankle fracture following mechanical witnessed fall. This will require surgical fixation. 3. 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 4. PAF, SVT, QT prolongation - now on metoprolol, sotalol and Eliquis. 5. History of hypertension and hyperlipidemia. 6. Obstructive sleep apnea, with intolerance to nasal CPAP. 7. Mild leukocytosis - etiology? Recommendations: * The patient's respiratory status appears to be stable at present. * Continue nebulizer treatments every 4 hours as needed. * Continue Singular 10 mg daily. * Continue Symbicort 80/4.5, 2 puffs every 12 hours. * Continue Spiriva 1 inhalation every morning. * IV Tylenol PRN. * DVT prophylaxis at all times. * Arrhythmia management per cardiology. * We will repeat an outpatient sleep study evaluation after discharge.
--- NOTE | 2016-09-02 11:43 | ECHOCARDIOGRAM REPORT ---
ESTUARDO PEREZ Age: 66 : 1950 Gender: M Exam Date: 09/01/2016 19:06 Exam Location: [facility] Ht (in): 69 Wt (lb): 300 BSA: 2.64 BP: 134 / 65 Ordering Physician: SUBHA JIMÉNEZ MD Referring Physician: Theodore Moreland M.D. Technologist: Maria G Hull RDCS Room Number: 172 Indications: ARRHYTHMIAS Rhythm: Technical Quality: FINDINGS Left Ventricle Normal size left ventricle. Left ventricular wall thickness mildly increased. Normal left ventricular ejection fraction estimated at 60-65%. Right Ventricle Normal right ventricular size and function. Right Atrium Normal right atrial size. Left Atrium Normal left atrial size. Mitral Valve Mild mitral annular calcification. Trace to mild mitral regurgitation. Aortic Valve Aortic valve is normal in structure and function. Tricuspid Valve Structurally normal tricuspid valve. Mild tricuspid regurgitation. Right ventricular systolic pressure estimated to be elevated at 45 mmHg. Pulmonic Valve Pulmonic valve not well visualized, grossly normal. Pericardium No pericardial effusion. Great Vessels Normal size aortic root. CONCLUSIONS Normal left ventricular systolic function with mild LVH. Mild to moderate Pulmonary hypertension. Romero Pope M.D. (Electronically Signed) Final Date: 02 September 2016 11:42 MEASUREMENTS (Male / Female) Normal Values 2D ECHO LV Diastolic Diameter PLAX 4.7 cm 4.2 - 5.9 / 3.9 - 5.3 cm LV Systolic Diameter PLAX 2.0 cm 2.1 - 4.0 cm LV Fractional Shortening PLAX 57.4 % 25 - 46 % LV Ejection Fraction 2D Teich 87.6 % IVS Diastolic Thickness 1.4 cm LVPW Diastolic Thickness 1.4 cm LV Relative Wall Thickness 0.6 RV Internal Dim ED PLAX 2.6 cm 1.9 - 3.8 cm LVOT Diameter 2.4 cm Aortic Root Diameter 3.8 cm LA Systolic Diameter LX 2.7 cm 3.0 - 4.0 / 2.7 - 3.8 cm LA Volume 31.0 cm 18 - 58 / 22 - 52 cm Ascending Aorta Diameter 3.5 cm DOPPLER AV Peak Velocity 149.0 cm/s AV Peak Gradient 8.9 mmHg AV Mean Velocity 96.8 cm/s AV Mean Gradient 5.0 mmHg AV Velocity Time Integral 24.8 cm LVOT Peak Velocity 116.0 cm/s LVOT Peak Gradient 5.4 mmHg LVOT Mean Velocity 75.7 cm/s LVOT Mean Gradient 3.0 mmHg LVOT Velocity Time Integral 20.2 cm LVOT Stroke Volume 91.4 cm AV Area Cont Eq vti 3.7 cm AV Area Cont Eq pk 3.5 cm MV Peak Velocity 76.4 cm/s MV Peak Gradient 2.3 mmHg MV Mean Velocity 51.9 cm/s MV Mean Gradient 1.0 mmHg Mitral E Point Velocity 58.7 cm/s Mitral A Point Velocity 59.7 cm/s Mitral E to A Ratio 1.0 MV PHT Velocity 83.6 cm/s MV Deceleration Gonzales 277.0 cm/s MV Pressure Half Time 90.5 ms MV Area PHT 2.4 cm MV Deceleration Time 269.0 ms TR Peak Velocity 317.0 cm/s TR Peak Gradient 40.2 mmHg Right Atrial Pressure 5.0 mmHg Pulmonary Artery Systolic Pressu 45.2 mmHg Right Ventricular Systolic Press 45.2 mmHg PV Peak Velocity 121.0 cm/s PV Peak Gradient 5.9 mmHg PV Mean Velocity 72.4 cm/s PV Mean Gradient 3.0 mmHg PV Velocity Time Integral 22.6 cm LV E' Lateral Velocity 9.8 cm/s Mitral E to LV E' Lateral Ratio 6.0 LV E' Septal Velocity 7.9 cm/s Mitral E to LV E' Septal Ratio 7.4
--- NOTE | 2016-09-02 13:20 | Patient Discharge Instructions ---
Discharge Instructions General Discharge Information You were seen/treated for: 1. Right ankle fracture status post mechanical fall 2. PAF 3. episode of SVT Watch for these problems: Chest pain, palpitations, any bleeding from nose, in stools or urine Special Instructions: 1. Please follow up with your primary care physician within a week after discharge 2. Please follow up with Dr. Davis 1 week after discharge 3. Please follow up with Dr. Bustillos after discharge 4. Please follow up with Dr. Guerrier after discharge. Make an appointment to follow up for your ankle fracture and possible planning for surgery as an out patient. 5. Non Weight Bearing on right leg 6. Continue with the new medications as prescribed 7. Stop Eliquis 24-hour before the surgery is scheduled. Please see cardiology again to get cleared and get pre-surgery clearance prior to scheduled surgery. Diet Continue normal diet: No Recommended Diet: Heart Healthy Activity Full Activity/No Limits: No Activity Limited to: No weight bearing (right leg) Additional ACTIVITY Info: Will require home PT Acute Coronary Syndrome Inclusion Criteria At DC or during hospital stay patient has or had the following: ACS DIAGNOSIS No Discharge Core Measures Meds if any: Prescribed or Continued at Discharge Meds if any: NOT Prescribed or Continued at Discharge Congestive Heart Failure Inclusion Criteria At DC or during hospital stay patient has or had the following: CHF DIAGNOSIS No Discharge Core Measures Meds if any: Prescribed or Continued at Discharge Meds if any: NOT Prescribed or Continued at Discharge Cerebrovascular accident Inclusion Criteria At DC or during hospital stay patient has or had the following: CVA/TIA Diagnosis No Discharge Core Measures Meds if any: Prescribed or Continued at Discharge Meds if any: NOT Prescribed or Continued at Discharge Venous thromboembolism Inclusion Criteria VTE Diagnosis No VTE Type NONE VTE Confirmed by (Test) NONE Discharge Core Measures - Per Current guidelines, there needs to be overlap - treatment for the first 5 days of Warfarin therapy. - If discharged on Warfarin prior to 5 days of - overlap therapy, the patient will need to be - assessed for post discharge needs including - *Post discharge parental anticoagulation - *Warfarin and/or parental anticoagulation education - *Follow up date to check INR post discharge At least 5 days overlap therapy as Inpatient No Meds if any: Prescribed or Continued at Discharge Note: Overlap Therapy is Warfarin and Anticoagulant Meds if any: NOT Prescribed or Continued at Discharge
[2016-09-02] MEDS ORDERED: ELIQUIS5 M1 PO (13:23)
[2016-09-02] MEDS ORDERED: METOPROLOL TART25 M1 PO ×2 (13:26→14:31)
[2016-09-02] MEDS ORDERED: BETAPACE80 MG PO (13:26)
[2016-09-02] MEDS ORDERED: SYMBICORT 80-10.2 GM INH (13:26)
[2016-09-02] MEDS ORDERED: TYLENOL325 M1 PO (13:26)
--- NOTE | 2016-09-02 13:30 | Discharge Summary ---
Visit Information Visit Dates Admission Date: 08/29/16 Discharge Date: 09/03/16 Hospital Course Course Attending Physician: MEGAN ZHANG MD Primary Care Physician: LALA SMALL MD Other Care Providers: Cane Cutter: Dr. Davis Consulting Request: 1 Consulting Specialty: Cardiology Consulting Physician: Dr. Moreland Reason for Consult: SVT and PAF Consulting Request: 2 Consulting Specialty: Orthopedics Consulting Physician: Dr. 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 Vitals on admission - afebrile, tachycardic 117, respiratory rate 18, blood pressure 154/95, saturating at 94 on room air. Labs - leukocytosis 15.7. Glucose 209, ALT 80. Ankle x-ray: Bimalleolar comminuted mildly fractures as described with several tiny bony fragments within the ankle mortise. Problem List: Cardiology and pulmonary cleared patient for procedure on 08/31/16 for surgery on 09/01/2016. Un 1. Right Bi-malleoar commuted fractures S/P mechanical fall: The patient sustained a bimaleolar commutes fracture on the right side after a witnessed mechanical fall whiel transferring from toilet to wheelchair. He was evaluated by Pulmonology and cardiology and was medically cleared for right ankle surgery and repair of the fracture. Unfortunately a night prior to when the surgery was scheduled (08/31/16), the patient went into narrow complex tachycardia/SVT in 160s. The surgery was cancelled and the patient maintained non-weight bearing status along with NOLBERTO wrap and pain management with IV Morphine and PO Oxycodone. The patient remains stable thereafter with no new event or arrythmia. Due to the non-urgent nature of the fracture, the decision was made by ortho to follow the patient as an outpatient and schedule him for an elective repair after getting discharged once medically stable. And it was recommended to the patient to stop eliquis 48 hours prior to when the surgery will be scheduled and he also needs to follow up with Dr. Stallworth to get cardiac clearance prior to getting his surgery. 2. Episode of Narrow Complex Tachycardia/SVT/ Paroxysmal atrial fibrillation Rapid A fib with RVR: The patient was initially admitted to general medicine floor for ankle fracture repair, but went into rapid a Flutter while on the floor, hence was transferred to Telemetry. On 08/31/16 around 2 am, he developed SVT not responsive to vagal maneuvers. EKG at that time showed narrow complex tachycardia, SVT, with rate in 160s. He recieved IV adenosine push, one time, with no resolution of the rhythm and was eventually started on Cardizem drip. Eventually he was chemically cardioverted with PO Sotalol 80 mg BID along with monitoring for QTc with frequent EKGs. He was also started on PO Metoprolol at 25 mg Po BID, tapered to 12.5 Po BID the next day. Due to the need for anticoagulation, Eliquis 5 mg BID was initiated. ECHO showed an EF of 60-65%. Thereafter, he remained stable and in normal sinus rhythem with the rate between 70s to 90s. 3. Leukocytosis: The patient had leukocytosis on admission with no signs of infection. He remained afebtrile with all work up negative. Chest x-ray and UA showed no evidence of infection. He was monitored off antibiotics 4. Chronic respiratory failure secondary to oxygen dependent COPD: Patient had a history of COPD on 2 lipm, remained stable with no acute excerbation of respiraory failure. He was also evaluated by pulmonology and was cleared for surgery. Singulair, Symbicort, Spiriva, Singulair and TRC Nebs were continued through his hospital stay. 5. 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 6. Bilateral lower extremity edema: No evidence of acute cardiac failure. He was continued on 20 mg of Lasix every other day. 7. Hypertension: Blood pressure remained well controlled throughout hospital stay. He was continued on BP meds, initially cardizem, then Metoprolol 8. HLD: Patient takes Repatha which shall be resumed upon discharged. DVT prophylaxis: Eliquis DNR/DNI Allergies: Coded Allergies: haloperidol (From HALDOL) (SWELLING 04/12/16) heparin (SWELLING 04/12/16) vancomycin (HIVES, SKIN CRACKES, TURNS RED, SWELLS AND PEELS 04/12/16) warfarin (SWELLS, TURNS, RED, HIVES, SKIN CRACKS AND PEELS 04/12/16) Pertinent Lab Results: Laboratory Tests 09/02/16 0620: Anion Gap 5, Estimated GFR > 60, BUN/Creatinine Ratio 35.0 H, Magnesium 2.2, CBC w Diff NO MAN DIFF REQ, RBC 3.98 L, MCV 89.4, MCH 29.5, RDW 14.4, MPV 8.9, Gran % 76.6 H, Lymphocytes % 10.8 L, Monocytes % 6.9, Eosinophils % 5.7 H, Basophils % 0 L, Absolute Granulocytes 11.3 H, Absolute Lymphocytes 1.6, Absolute Monocytes 1.0 H, Absolute Eosinophils 0.8, Absolute Basophils 0, PUBS MCHC 33.0 09/01/16 0714: Anion Gap 10, Estimated GFR > 60, BUN/Creatinine Ratio 30.0 H, CBC w Diff NO MAN DIFF REQ, RBC 4.32 L, MCV 89.9, MCH 29.4, RDW 14.3, MPV 8.9, Gran % 77.2 H , Lymphocytes % 11.9 L, Monocytes % 8.3, Eosinophils % 2.6, Basophils % 0 L, Absolute Granulocytes 10.7 H, Absolute Lymphocytes 1.6, Absolute Monocytes 1.1 H, Absolute Eosinophils 0.4, Absolute Basophils 0, PUBS MCHC 32.7 L 09/01/16 0126: Anion Gap 9, Estimated GFR > 60, BUN/Creatinine Ratio 31.7 H, Magnesium 1.8 08/31/16 0610: Anion Gap 9, Estimated GFR > 60, BUN/Creatinine Ratio 34.3 H, CBC w Diff NO MAN DIFF REQ, RBC 4.13 L, MCV 89.5, MCH 29.3, RDW 14.7 H, MPV 8.8, Gran % 68.6, Lymphocytes % 16.0 L, Monocytes % 10.2 H, Eosinophils % 5.1 H, Basophils % 0.1, Absolute Granulocytes 8.7 H, Absolute Lymphocytes 2.0, Absolute Monocytes 1.3 H, Absolute Eosinophils 0.6, Absolute Basophils 0, PUBS MCHC 32.8 L 08/30/167: Urinalysis MOD H, Urine Color YEL, Urine Clarity CLEAR, Urine pH 7.0, Ur Specific [place] 1.015, Urine Protein 30 H, Urine Ketones 40 H, Urine Nitrite NEG, Urine Bilirubin NEG@ICTO, Urine Urobilinogen 0.2, Ur Leukocyte Esterase TRACE H, Ur Microscopic SEDIMENT EXAMINED, Urine RBC 5-10 H, Urine WBC 1-3 H, Ur Epithelial Cells FEW, Urine Bacteria FEW H, Urine Mucus MOD H, Urine Hemoglobin TRACE-INTACT H, Urine Glucose NEG Microbiology 08/30 2347 URINE ROUT: Urine Culture - COMP 08/30 2320 BLOOD: Blood Culture - RES 08/30 2300 BLOOD: Blood Culture - RES Disposition Summary Disposition Principal Diagnosis: 1. Bi-malleoar commuted fractures S.P mechanical fall 2. Episode of Narrow Complex Supraventricular Tachycardia 3. A flutter/ Afib with RVR Additional Diagnosis: 1. Chronic respiratory failure 2. COPD on home oxygen 3. 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 Bilateral lower extremity edema: 5. Hypertension: 6. HLD Discharge Disposition: home health services Discharge Instructions General Discharge Information Code Status: Do Not Resucitate/Intubat Patient's Diet: Heart Healthy Diet Patient's Activity: Wheel chair bound, transferd from wheelchair to toilet seat NON-WEIGHT BEARING status due to right ankle fracture Follow-Up Instructions/Appts: 1. Please follow up with your primary care physician within a week after discharge 2. Please follow up with Dr. Moreland after discharge 3. Please follow up with Dr. Bustillos after discharge 4. please follow up with Dr. Guerrier after discharge. Make an appointment to follow up for your ankle fracture and possible planning for surgery as an out patient. 5. Non Weight Bearing on right leg 6. Continue with the new medications as prescribed 7. Stop Eliquis 24-hour before the surgery is scheduled. Please see cardiology again to get cleared and get pre-surgery clearance prior to scheduled surgery. Medications at Discharge Discharge Medications: Stop taking the following medications: Diltiazem HCl (Diltiazem 24HR ER) 120 MG CAP.ER.24H ORAL DAILY Qty = 90 Continue taking these medications: Furosemide (Furosemide) 20 MG TABLET 3 Tablet ORAL Every other day Qty = 90 Comments: PER PT MED LIST Gabapentin (Gabapentin) 600 MG TABLET 1 Tablet ORAL THREE TIMES DAILY Qty = 90 Comments: PER PT MED LIST Lactobacillus Acidophilus (Acidophilus) 1 EACH CAPSULE 1 Capsule ORAL TWICE DAILY Comments: PER PT MED LIST Magnesium Oxide (Magnesium) 400 MG CAPSULE 1 Capsule ORAL 0600 Comments: PER PT MED LIST Multivitamin (Multi-Day Vitamins) 1 EACH TABLET 1 Tablet ORAL DAILY Comments: PER PT MED LIST Nortriptyline HCl (Nortriptyline HCl) 10 MG CAPSULE 1 Capsule ORAL Every night Qty = 30 Comments: PER PT MED LIST Atomoxetine HCl (Strattera) 40 MG CAPSULE 1 Capsule ORAL Every Morning Qty = 30 Comments: PER PT MED LIST Ascorbate Calcium (Vitamin C) 500 MG TABLET 1 Tablet ORAL TWICE DAILY Comments: PER PT MED LIST Oxycodone HCl/Acetaminophen (Oxycodone-Acetaminophen 5-325) 5 MG-325 MG TABLET 1-2 Tablet ORAL Q4H as needed for PAIN Qty = 120 Comments: PER PT MED LIST Baclofen (Baclofen) 20 MG TABLET 1 Tablet ORAL TWICE DAILY Qty = 150 Comments: PER PT MED LIST Bisacodyl (Dulcolax) 10 MG SUPP.RECT 1 Suppository RECTAL Every other day Comments: PER PT MED LIST Potassium Chloride (Potassium Chloride) 20 MEQ TAB.ER.PRT 1 Tablet ORAL DAILY Qty = 90 Comments: PER PT MED LIST Rifampin (Rifadin) 300 MG CAPSULE 1 Capsule ORAL TWICE DAILY Comments: PER PT MED LIST Guaifenesin (Mucinex) 600 MG TAB.ER.12H 2 Tablet ORAL TWICE DAILY Comments: PER PT MED LIST Lorazepam (Ativan) 1 MG TABLET 1 Tablet ORAL TWICE DAILY Comments: PER PT MED LIST Albuterol Sulfate (Ventolin Hfa) 90 MCG HFA.AER.AD 2 Puff Inhale through mouth Q4H Comments: PER PT MED LIST Evolocumab (Repatha Sureclick) 140 MG/ML PEN.INJCTR 1 Milliliters Inject into fatty tissue EVERY 2 WEEKS Comments: PER PT MED LIST Montelukast Sodium (Singulair) 10 MG TABLET 1 Tablet ORAL DAILY Pantoprazole Sodium (Protonix) 40 MG TABLET.DR 1 Tablet ORAL DAILY Tiotropium [place] (Spiriva) 18 MCG CAP.W.DEV 1 Capsule Inhale through mouth DAILY Doxycycline Hyclate (Doxycycline Hyclate) 100 MG CAPSULE 1 Capsule ORAL TWICE DAILY Qty = 60 Aspirin (Ecotrin*) 81 MG TABLET.DR 1 Tablet ORAL DAILY Start taking the following new medications: Apixaban (Eliquis) 5 MG TABLET 5 Milligram ORAL TWICE DAILY Qty = 60 No Refills Sotalol (Betapace) 80 MG TABLET 80 Milligram ORAL TWICE DAILY Qty = 60 No Refills Acetaminophen (Tylenol) 325 MG TABLET 325 Milligram ORAL EVERY SIX HOURS NEEDED as needed for PAIN SCALE 1-3 ( MILD) Days = 30 No Refills Budesonide/Formoterol Fumarate (Symbicort 80-4.5 Mcg Inhaler) 80 MCG-4.5 MCG/ ACTUATION HFA.AER.AD 2 Puff Inhale through mouth TWICE DAILY Days = 30 No Refills Metoprolol Tartrate (Metoprolol Tartrate) 25 MG TABLET 12.5 Milligram ORAL TWICE DAILY Days = 30 No Refills Copies To: LEATHA VOGEL,MEGAN; RENY VOGEL,Kirna QUIROGA; AXEL VOGEL,VENICE; EDILBERTO VOGEL,ALEISHA Baptiste ; STACI VOGEL,LALA Gray
[2016-09-02 15:30] VITALS: BP 138/78
[2016-09-03 01:20] VITALS: BP 126/68
--- NOTE | 2016-09-03 07:12 | PN- Housestaff ---
JESSY VOGEL,[facility] 09/03/16 0711: Subjective Follow-up For: 1. Right ankle fracture status post mechanical fall 2. PAF 3. episode of SVT Tele-Events Since Last Visit: SR 68 - 77, no events Subjective: The patient feels well, he did not report any complaints except for a pain in his right ankle of 7/10. He denies any chest pain, shortness of breath, palpitations, N/V/D, no fever or chills. Had a BM yesterday. Review of Systems Constitutional: Reports: see HPI. Cardiovascular: Reports: no symptoms. Respiratory: Reports: no symptoms. Gastrointestinal: Reports: no symptoms. Genitourinary: Reports: no symptoms. Musculoskeletal: Reports: see HPI. Objective Last 24 Hrs of Vital Signs/I&O Vital Signs Date Time Temp Pulse Resp B/P Pulse O2 O2 Flow FiO2 Ox Delivery Rate 09/03 0120 98.2 73 20 126/68 96 Nasal Cannula 09/03 0000 Nasal 2.0L Cannula 09/02 2325 78 126/68 09/02 1610 97 Nasal 2.0L Cannula 09/02 1530 98.2 72 20 138/78 96 Nasal 2.0L Cannula 09/02 0957 76 140/76 09/02 0814 94 Nasal 2.0L Cannula 09/02 0800 Nasal 2.0L Cannula 09/02 0800 98.3 76 20 140/76 94 Nasal 2.0L Cannula Intake & Output 09/03 0800 09/03 0000 09/02 1600 Intake Total 240 620 Output Total 200 1100 Balance 40 -480 Intake, Oral 240 620 Number 1 Bowel Movements Output, Urine 200 1100 Physical Exam General Appearance: Alert, Oriented X3, Cooperative, No Acute Distress Cardiovascular: Regular Rate, Normal S1, Normal S2, No Murmurs Lungs: Clear to Auscultation Abdomen: Normal Bowel Sounds, Soft, No Tenderness Extremities: Normal Pulses, bilateral leg edema. Right leg in NOLBERTO wrap, left has ALPS in place Current Medications: Current Medications Sig/Danni Start time Last Medication Dose Route Stop Time Status Admin Acetaminophen 325 MG Q6P PRN 08/30 0015 AC 09/01 PO 0225 Albuterol Sulfate 3 ML EVERY 4 HRS/AWAKE 08/30 1200 AC 09/02 INH 1955 Apixaban 5 MG BID 09/01 1137 AC 09/02 PO 2323 Aspirin Buffered 81 MG DAILY 08/30 1000 AC 09/02 PO 0956 Baclofen 20 MG BID 08/30 0114 AC 09/02 PO 2323 Bisacodyl 10 MG .STK-MED ONE 09/02 1044 DC ID 09/02 1045 Bisacodyl 10 MG DAILY 08/31 1215 AC 09/02 ID 1054 Budesonide/ 2 PUF BID 08/30 1400 AC 09/02 Formoterol Fumarate INH 2326 Doxycycline Hyclate 100 MG BID 08/30 0117 AC 09/02 PO 2323 Furosemide 60 MG Q48 08/31 1215 AC 09/02 PO 0956 Gabapentin 600 MG Q8 08/30 0600 AC 09/03 PO 0544 Lorazepam 1 MG BID 08/30 1000 AC 09/02 PO 2326 Magnesium Oxide 400 MG BID 09/01 0214 AC 09/02 PO 2322 Metoprolol Tartrate 12.5 MG BID 09/02 2200 AC 09/02 PO 2325 Metoprolol Tartrate 25 MG BID 09/01 1138 DC 09/02 PO 0957 Montelukast Sodium 10 MG DAILY 08/30 1000 AC 09/02 PO 0957 Morphine Sulfate 2 MG Q6P PRN 08/30 0200 AC 09/02 IV 2339 Nortriptyline HCl 10 MG QPM 08/30 2200 AC 09/02 PO 2325 Omeprazole 40 MG DAILY AC 08/30 0700 AC 09/03 PO 0544 Oxycodone/ 1 TAB Q6P PRN 08/30 0015 AC 09/02 Acetaminophen PO 1729 Rifampin 300 MG BID 08/30 0116 AC 09/02 PO 2322 Sotalol HCl 80 MG BID 09/01 1137 AC 09/02 PO 2324 Tiotropium [place] 1 PUF DAILY 08/30 1400 AC 09/02 INH 0955 Orders Fingersticks (last 24 hrs): [phone] Lines/Diet/Fluids Lines: peripheral lines Assessment/Plan Assessment: 66-year-old morbidly obese demand with history of stage IV COPD on 2 L oxygen, CAD status post stents, hypertension, 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 X-ray of the ankle showed a bimalleolar culminated fracture of ankle mortise. Patient was seen by orthopedic who recommended repair while he is in the hospital. Cardiology and pulmonary cleared patient for procedure on 08/31/16 for surgery on 09/01/2016. Unfortunately a night prior to scheduled surgery, the patient went into SVT, rate in 160s, given IV adenosine x 1, with no resolution of the rhythm and was eventually started on Cardizem drip. 1. Right ankle fracture status post mechanical fall - The patient had an event where he had narrow complex tachycardia over night on 09/01/16, therefore his ankel surgery was cancelled - He has remained stable since and is cleared for surgery from cardiac stand point per Dr. Pope - Spoke with Dr. Guerrier. The patient is NWB on right leg, stable and the surgery is non-urgent. Will manage by NOLBERTO wrap, immobilization and pain control for now, and have him follow up with Dr. Guerrier after discharge for further planning for surgery. - Discharge planning today 2. Episode of SVT/Paroxysmal atrial fibrillation: - The patient had an event of SVT/narrow complex tachycardia on 09/01/16 around 2 am. At that time he was given a push of adenosine followed by cardizem drip - Currently on Sotalol 80 mg BID, with EKG momitoring. Last EKG showed QTc of 436 - On Metoprolol 12.5 mg po BID - Eliquis 5 mg BID - ECHO shows an EF of 60-65% 3. Leukocytosis: - Patient had WBC count in 12-14 range, has been afebrile. - Chest x-ray and UA with no evidence of infection - Being monitored off Abx 4. Chronic respiratory failure secondary to COPD on home oxygen - Stable we will continue his Singulair. - We'll continue him on Symbicort, Spiriva, Singulair 5. 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 - Continue straight cath protocol 6. Bilateral lower extremity edema - Patient takes 20 mg of Lasix every other day. - Restarted 20 mg Lasix every other day 7. Hypertension - Maintained in cardiac meds 8. HLD: - Resume Repatha on discharge DVT prophylaxis: Eliquis DNR/DNI Problem List: 1. Bimalleolar fracture of right ankle 2. SVT (supraventricular tachycardia) 3. Paroxysmal atrial fibrillation 4. Paraplegia 5. Hypertension 6. COPD exacerbation Pain Ratin Pain Location: right ankle Pain Goal: Pain 4 or less Pain Plan: PO oxycodone Tomorrow's Labs & Rationales: Not needed DVT/Prophylaxis: pharmacological Consulting Request: 1 Consulting Specialty: Orthopedics Consulting Physician: Dr. Guerrier Reason for Consult: Right ankle fracture Consulting Request: 2 Consulting Specialty: Cardiology Consulting Physician: Dr. Moreland Reason for Consult: SVT/PAF Consulting Request: 3 Consulting Specialty: Pulmonary Disease Consulting Physician: Dr. Bustillos Reason for Consult: COPD Discharge Plan Discharge Disposition: awaiting STR/NH placement Stable for Discharge? Yes Anticipated Discharge (Day): today If Discharged Today/In 24 Hrs: enter ant[facility] discharge ord, W-10/discharge paper done, DC summary done, CMR done MEGAN ZHANG MD 09/03/16 1400: Attending MD Review Statement Attending Statement Attending MD Statement: examined this patient, discuss w/resident/PA/ONCOLOGY COORDINATOR, agreed w/resident/PA/ONCOLOGY COORDINATOR, reviewed EMR data (avail) Attending Assessment/Plan: 66M PMH COPD on 2L home oxygen, CAD s/p PCI, HTN, MRSA bacteremia/endocarditis with T6-7 spinal abscesses resulting in paraparesis on chronic suppressive therapy with doxycycline and rifampin, PE s/p IVC filter, JELANI not on CPAP admitted with mechanical fall and right ankle fracture. Patient was scheduled for ORIF on 09/01 but had episode of SVT the night before requiring Adenosine pushes and Cardizem drip resulting in cancellation of surgery. The patient has since been started on Sotalol and Metoprolol, with tentative plan for FUNMI/ cardioversion on 09/03 if SVT/a-fib persists. Today the patient has no complaints and feels well. He is in NSR on telemetry with no events. EKG's done post Sotalol dosing are NSR without prolonged QTc. 1. Mechanical fall 2. Right bimalleolar comminuted fractures 3. Supraventricular tachycardia 4. Rapid atrial fibrillation with RVR 5. COPD 6. Chronic hypoxemic respiratory failure 7. History of mRSA spinal abscesses and endocarditis 8. JELANI Plan - Stable for discharge to STR - Follow cardiology and orthopedic recommendations - Continue Sotalol - Follow cardiology recommendations - Continue Eliquis - Continue home medications - Outpatient orthopedic and cardiology follow up
[2016-09-03 08:00] VITALS: BP 140/80
--- NOTE | 2016-09-03 10:25 | PN- Orthopedic ---
Subjective Subjective: Pt has no complaints. Awaiting discharge to short term rehab. Objective Vital Signs and I&Os Vital Signs Date Time Temp Pulse Resp B/P Pulse O2 O2 Flow FiO2 Ox Delivery Rate 09/03 08 94 Nasal 2.0L Cannula 09/03 0800 98.1 70 20 140/80 94 Nasal 2.0L Cannula 09/03 0758 94 Nasal 2.0L Cannula 09/03 0120 98.2 73 20 126/68 96 Nasal Cannula 09/03 0000 Nasal 2.0L Cannula 09/02 2325 78 126/68 09/02 1610 97 Nasal 2.0L Cannula 09/02 1530 98.2 72 20 138/78 96 Nasal 2.0L Cannula Intake & Output 09/03 1600 09/03 0800 09/03 0000 09/02 1600 09/02 0800 09/02 0000 Intake Total 200 240 620 50 480 Output Total 200 1100 450 200 Balance 200 40 -480 -400 280 Intake, Oral 200 240 620 50 480 Number 1 0 0 Bowel Movements Output, Urine 200 1100 450 200 Physical Exam: Gen: Awake, alert. NAD. Ext: RLE is in posterior splint with ankle at 90 degrees. Toes mildly edematous, but sensation is intact. Good cap refill. Ice in place. Assessment/Plan Assessment/Plan Pt is a 66 yo M who sustained a right bimalleolar ankle fracture after a fall. He has been cleared for surgery from a medical standpoint, however Dr. Guerrier would like to wait until later next week. Recommendations: Ok for pt to be discharged to short term rehab and follow up with Dr. Guerrier in the office early next week, as he discussed with internal controls analyst yesterday. Posterior splint and velia wrap should be left in place. Please keep pt nonweightbearing. Elevate and ice to reduce swelling. Anticipate OR later next week.
--- NOTE | 2016-09-03 10:41 | PN- Pulmonary ---
Subjective HPI/Critical Care Issues: The patient is awake and alert. There were no overnight events reported. Objective Current Medications: Current Medications Sig/Danni Start time Last Medication Dose Route Stop Time Status Admin Acetaminophen 325 MG Q6P PRN 08/30 0015 AC 09/01 PO 0225 Albuterol Sulfate 3 ML EVERY 4 HRS/AWAKE 08/30 1200 AC 09/03 INH 0756 Apixaban 5 MG BID 09/01 1137 AC 09/02 PO 2323 Aspirin Buffered 81 MG DAILY 08/30 1000 AC 09/02 PO 0956 Baclofen 20 MG BID 08/30 0114 AC 09/02 PO 2323 Bisacodyl 10 MG .STK-MED ONE 09/02 1044 DC OK 09/02 1045 Bisacodyl 10 MG DAILY 08/31 1215 AC 09/02 OK 1054 Budesonide/ 2 PUF BID 08/30 1400 AC 09/02 Formoterol Fumarate INH 2326 Doxycycline Hyclate 100 MG BID 08/30 0117 AC 09/02 PO 2323 Furosemide 60 MG Q48 08/31 1215 AC 09/02 PO 0956 Gabapentin 600 MG Q8 08/30 0600 AC 09/03 PO 0544 Lorazepam 1 MG BID 08/30 1000 AC 09/02 PO 2326 Magnesium Oxide 400 MG BID 09/01 0214 AC 09/02 PO 2322 Metoprolol Tartrate 12.5 MG BID 09/02 2200 AC 09/02 PO 2325 Metoprolol Tartrate 25 MG BID 09/01 1138 DC 09/02 PO 0957 Montelukast Sodium 10 MG DAILY 08/30 1000 AC 09/02 PO 0957 Morphine Sulfate 2 MG Q6P PRN 08/30 0200 AC 09/03 IV 0841 Nortriptyline HCl 10 MG QPM 08/30 2200 AC 09/02 PO 2325 Omeprazole 40 MG DAILY AC 08/30 0700 AC 09/03 PO 0544 Oxycodone/ 1 TAB Q6P PRN 08/30 0015 AC 09/02 Acetaminophen PO 1729 Rifampin 300 MG BID 08/30 0116 AC 09/02 PO 2322 Sotalol HCl 80 MG BID 09/01 1137 AC 09/02 PO 2324 Tiotropium [place] 1 PUF DAILY 08/30 1400 AC 09/02 INH 0955 Vital Signs & I&O Last 24 Hrs of Vitals and I&O: Vital Signs Date Time Temp Pulse Resp B/P Pulse O2 O2 Flow FiO2 Ox Delivery Rate 09/03 0800 94 Nasal 2.0L Cannula 09/03 0800 98.1 70 20 140/80 94 Nasal 2.0L Cannula 09/03 0758 94 Nasal 2.0L Cannula 09/03 0120 98.2 73 20 126/68 96 Nasal Cannula 09/03 0000 Nasal 2.0L Cannula 09/02 2325 78 126/68 09/02 1610 97 Nasal 2.0L Cannula 09/02 1530 98.2 72 20 138/78 96 Nasal 2.0L Cannula Intake & Output 09/03 1600 09/03 0800 09/03 0000 Intake Total 200 240 Output Total 200 Balance 200 40 Intake, Oral 200 240 Output, Urine 200 General Appearance: no apparent distress, alert, awake, comfortable Head: atraumatic, normal appearance Eyes: Bilateral: PERRL. Neck: supple Respiratory: decreased breath sounds, no wheezes rhonchi or rales Cardiovascular: S1 and S2 heard, heart sounds are distant Gastrointestinal: normal bowel sounds, soft, non-tender Extremities: right lower extremity in a splint and dressed Skin: intact, normal color, warm/dry Impression/Plan Impression/Plan Impression/Plan: 1. Stable respiratory status, chronic COPD which is oxygen dependent. 2. Right ankle fracture following mechanical witnessed fall. This will require surgical fixation. 3. 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 4. PAF, SVT, QT prolongation - now on metoprolol, sotalol and Eliquis. No overnight telemetry events reported. 5. History of hypertension and hyperlipidemia. 6. Obstructive sleep apnea, with intolerance to nasal CPAP. 7. Mild leukocytosis - etiology? Recommendations: * The patient's respiratory status appears to be stable at present. * Check a follow-up CBC. * Continue nebulizer treatments every 4 hours as needed. * Continue Singular 10 mg daily. * Continue Symbicort 80/4.5, 2 puffs every 12 hours. * Continue Spiriva 1 inhalation every morning. * IV Tylenol PRN. * DVT prophylaxis at all times. * Arrhythmia management per cardiology. * We will repeat an outpatient sleep study evaluation after discharge. * Await cardiac clearance and surgical intervention.
--- NOTE | 2016-09-03 11:45 | PN- Cardiology ---
Subjective Subjective: Feeling well this morning. Offers no complaint. Objective Vital Signs and I&Os Vital Signs Date Time Temp Pulse Resp B/P Pulse O2 O2 Flow FiO2 Ox Delivery Rate 09/03 1053 70 130/64 09/03 1050 Nasal 2.0L Cannula 09/03 0800 94 Nasal 2.0L Cannula 09/03 0800 98.1 70 20 140/80 94 Nasal 2.0L Cannula 09/03 0758 94 Nasal 2.0L Cannula 09/03 0120 98.2 73 20 126/68 96 Nasal Cannula 09/03 0000 Nasal 2.0L Cannula 09/02 2325 78 126/68 09/02 1610 97 Nasal 2.0L Cannula 09/02 1530 98.2 72 20 138/78 96 Nasal 2.0L Cannula Intake & Output 09/03 1600 09/03 0800 09/03 0000 09/02 1600 09/02 0800 09/02 0000 Intake Total 200 240 620 50 480 Output Total 200 1100 450 200 Balance 200 40 -480 -400 280 Intake, Oral 200 240 620 50 480 Number 1 0 0 Bowel Movements Output, Urine 200 1100 450 200 Physical Exam: General: no apparent distress. Alert. Eyes: No obvious scleral icterus. HEENT: No jugular venous distention or abnormal jugular venous pulsations. Cardiovascular: Normal intensity S1/S2. Regular. Respiratory: Lungs clear to auscultation bilaterally. Abdomen: Mildly distended with no guarding or rebound tenderness. Musculoskeletal: No clubbing or cyanosis noted Skin: warm Neurologic: Chronic paraplegia Current Medications: Current Medications Sig/Danni Start time Last Medication Dose Route Stop Time Status Admin Acetaminophen 325 MG Q6P PRN 08/30 0015 AC 09/01 PO 0225 Albuterol Sulfate 3 ML EVERY 4 HRS/AWAKE 08/30 1200 AC 09/03 INH 1113 Apixaban 5 MG BID 09/01 1137 AC 09/03 PO 1055 Aspirin Buffered 81 MG DAILY 08/30 1000 AC 09/03 PO 1052 Baclofen 20 MG BID 08/30 0114 AC 09/03 PO 1053 Bisacodyl 10 MG DAILY 08/31 1215 AC 09/02 VA 1054 Budesonide/ 2 PUF BID 08/30 1400 AC 09/03 Formoterol Fumarate INH 1050 Doxycycline Hyclate 100 MG BID 08/30 0117 AC 09/03 PO 1052 Furosemide 60 MG Q48 08/31 1215 AC 09/02 PO 0956 Gabapentin 600 MG Q8 08/30 0600 AC 09/03 PO 0544 Lorazepam 1 MG BID 08/30 1000 AC 09/02 PO 2326 Magnesium Oxide 400 MG BID 09/01 0214 AC 09/03 PO 1052 Metoprolol Tartrate 12.5 MG BID 09/02 2200 AC 09/03 PO 1053 Metoprolol Tartrate 25 MG BID 09/01 1138 DC 09/02 PO 0957 Montelukast Sodium 10 MG DAILY 08/30 1000 AC 09/03 PO 1052 Morphine Sulfate 2 MG Q6P PRN 08/30 0200 DC 09/03 IV 0841 Nortriptyline HCl 10 MG QPM 08/30 2200 AC 09/02 PO 2325 Omeprazole 40 MG DAILY AC 08/30 0700 AC 09/03 PO 0544 Oxycodone/ 2 TAB Q6P PRN 09/03 1100 AC Acetaminophen PO Oxycodone/ 1 TAB Q6P PRN 08/30 0015 AC 09/02 Acetaminophen PO 1729 Rifampin 300 MG BID 08/30 0116 AC 09/03 PO 1053 Sotalol HCl 80 MG BID 09/01 1137 AC 09/03 PO 1052 Tiotropium [place] 1 PUF DAILY 08/30 1400 AC 09/03 INH 1050 Results Last 48 Hrs of Labs/Mics: Laboratory Tests 09/02/16 0620: Anion Gap 5, Estimated GFR > 60, BUN/Creatinine Ratio 35.0 H, Magnesium 2.2, CBC w Diff NO MAN DIFF REQ, RBC 3.98 L, MCV 89.4, MCH 29.5, RDW 14.4, MPV 8.9, Gran % 76.6 H, Lymphocytes % 10.8 L, Monocytes % 6.9, Eosinophils % 5.7 H, Basophils % 0 L, Absolute Granulocytes 11.3 H, Absolute Lymphocytes 1.6, Absolute Monocytes 1.0 H, Absolute Eosinophils 0.8, Absolute Basophils 0, PUBS MCHC 33.0 Recent Imaging Studies: Telemetry tracings were personally reviewed and shows sinus rhythm with no recurrence of atrial arrhythmia Echocardiogram CONCLUSIONS Normal left ventricular systolic function with mild LVH. Mild to moderate Pulmonary hypertension. Assessment/Plan Assessment/Plan 1. S/p mechanical fall with malleolar fx, planned for surgical intervention per Ortho 2. CAD with remote PCI () 3. COPD on O2 (followed by Dr. Bustillos) 4. 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 PAFl/AF, now started on sotalol 6. Reported DVT/PE with reported prior IVC filter 7. HLD on Repatha (?statin intolerance) 8. Remote hx of endocarditis 9. Hx HTN The patient feels well this morning and offers no complaints. Telemetry shows no evidence of recurrent atrial arrhythmias and no evidence of significant ventricular arrhythmia. Continue current cardiac regimen including oral anticoagulation, sotalol, and low-dose metoprolol. Patient should follow-up with Dr. Stallworth within one week of discharge. Will defer to Dr. Stallworth about possible outpatient stress test prior to planned orthopedic intervention. The patient may be a candidate for LINQ implant in the future, if he has breakthrough atrial arrhythmias he would be a potential candidate for ablation. Fercho Moreland MD [facility] Continue telemetry? No
[2016-09-03 14:55] LABS: ABSOLUTE BASOPHIL COUNT 0 /CUMM (0.0-0.2); ABSOLUTE EOSINOPHIL COUNT 0.7 /CUMM (0.0-0.7); ABSOLUTE GRANULOCYTE CT 9.1 /CUMM (1.4-6.5); ABSOLUTE LYMPH COUNT 2.2 /CUMM (1.2-3.4); ABSOLUTE MONOCYTE COUNT 1.1 /CUMM (0.10-0.60); BASOPHIL % 0 % (0.0-2.0); EOSINOPHIL % 5.1 % (0-5); GRANULOCYTE % 69.9 % (42.2-75.2); HEMATOCRIT 35.2 % (42-52); MEAN CORPUSCULAR HGB 29.9 PG (27.0-31.0); MEAN CORPUSCULAR HGB CONC 33.5 G/DL (33.0-37.0); MEAN CORPUSCULAR VOLUME 89.3 FL (80.0-94.0); MEAN PLATELET VOLUME 8.1 FL (7.4-10.4); PLATELET COUNT 290 /CUMM (130-400); RBC DISTRIBUTION WIDTH 14.4 % (11.5-14.5); RED BLOOD CELL CT 3.94 /CUMM (4.70-6.10)
[2016-09-03 15:51] VITALS: BP 130/64
[2016-09-03 16:41] VITALS: BP 136/80
== END 2016-09-03 18:30 | DRG 563 ==
LOC: ENRESERVTM → ENRESERVDT → ERH 19:56 → ENPENDDIS 22:39 → 2NA 22:39 → ERHI 22:39 → 1NO 22:39 → 2NA 08-30 01:00 → 1NO 08-30 20:48
PROVIDERS: Internal Medicine; Physician Assistant; Student in an Organized Health Care Education/Training Program; ADMIT Student in an Organized Health Care Education/Training Program
DX: S82.841A Displaced bimalleolar fracture of right lower leg, initial encounter for closed fracture (principal); J96.11 Chronic respiratory failure with hypoxia; G82.20 Paraplegia, unspecified; Z99.81 Dependence on supplemental oxygen; I48.0 Paroxysmal atrial fibrillation; I47.1 Supraventricular tachycardia; G62.9 Polyneuropathy, unspecified; Z68.41 Body mass index [BMI] 40.0-44.9, adult; I10 Essential (primary) hypertension; I48.92 Unspecified atrial flutter; E66.01 Morbid (severe) obesity due to excess calories; J44.9 Chronic obstructive pulmonary disease, unspecified; N31.9 Neuromuscular dysfunction of bladder, unspecified; E78.5 Hyperlipidemia, unspecified; J45.909 Unspecified asthma, uncomplicated; F32.9 Major depressive disorder, single episode, unspecified; I25.10 Atherosclerotic heart disease of native coronary artery without angina pectoris; K21.9 Gastro-esophageal reflux disease without esophagitis; G47.33 Obstructive sleep apnea (adult) (pediatric); Z87.891 Personal history of nicotine dependence; W19.XXXA Unspecified fall, initial encounter; Y92.129 Unspecified place in nursing home as the place of occurrence of the external cause; R73.9 Hyperglycemia, unspecified; Z86.711 Personal history of pulmonary embolism; Z86.718 Personal history of other venous thrombosis and embolism; Z95.5 Presence of coronary angioplasty implant and graft
CPT/HCPCS: 1NP; ERO; 36415; 73610-RT; 81001; 82436; 87040; 87086; 93005; 93010; 93306; 93970; 96374; 97110-GO; 97161-GP; 97530-GO; J0131; J0153; J1650; J3490

== ENCOUNTER 2016-10-11 12:55 | Emergency (ER) | payer OTHER, MEDICARE ==
[~2016-10-11] VITALS: Ht 170.2 cm; Wt 81.6 kg
[~2016-10-11 12:55] MED LIST changes: +ASPIRIN EC81 M1 PO; +BETAPACE80 MG PO; +METOPROLOL TART25 M1 PO; +PREDNISONE5 M1 PO; +PROTONIX40 M3 PO; +SINGULAIR10 M1 PO; +SYMBICORT 80-10.2 GM INH; +TYLENOL325 M1 PO
--- NOTE | 2016-10-11 14:12 | RADIOLOGY REPORT ---
EXAMINATION: XR PORTABLE CHEST CLINICAL INFORMATION: Shortness of breath COMPARISON: 08/30/2016 TECHNIQUE: Portable frontal view of the chest was obtained. FINDINGS: Low lung volumes. Persistent hazy left basilar opacity likely associated with a small pleural effusion and associated airspace disease. No pneumothorax. The cardiomediastinal silhouette is unchanged. No acute osseous abnormality. IMPRESSION: Hazy left basilar opacity is similar to previous. This likely represents a combination of small pleural effusion with atelectasis/pneumonia.
[2016-10-11] MEDS ORDERED: TRAZODONE HCL50 M1 PO (14:56)
[2016-10-11] MEDS ORDERED: OMEPRAZOLE20 M2 PO (14:57)
[2016-10-11 15:00] LABS: ABSOLUTE BASOPHIL COUNT 0 /CUMM (0.0-0.2); ABSOLUTE EOSINOPHIL COUNT 1.3 /CUMM (0.0-0.7); ABSOLUTE LYMPH COUNT 2.2 /CUMM (1.2-3.4); ABSOLUTE MONOCYTE COUNT 0.7 /CUMM (0.10-0.60); BASOPHIL % 0.2 % (0.0-2.0); EOSINOPHIL % 10.6 % (0-5); HEMATOCRIT 41.3 % (42-52); MEAN CORPUSCULAR HGB 29.8 PG (27.0-31.0); MEAN CORPUSCULAR HGB CONC 32.7 G/DL (33.0-37.0); MEAN PLATELET VOLUME 9.1 FL (7.4-10.4); PLATELET COUNT 244 /CUMM (130-400); RBC DISTRIBUTION WIDTH 16.3 % (11.5-14.5); RED BLOOD CELL CT 4.54 /CUMM (4.70-6.10); WHITE BLOOD CELL COUNT 12.2 /CUMM (4.8-10.8)
--- NOTE | 2016-10-11 15:21 | ED AMS/SEIZURE/WEAK/DIZZY ---
History of Present Illness General Chief Complaint: Altered Mental Status Stated Complaint: BIBA FOR ?CONFUSION FROM [facility]ICE Source: patient, family, old records, W10 Exam Limitations: no limitations Vital Signs & Intake/Output Vital Signs & Intake/Output Vital Signs Date Time Temp Pulse Resp B/P B/P Pulse O2 O2 Flow FiO2 Mean Ox Delivery Rate 10/11 1617 96.8 80 20 118/66 97 Nasal 2.0L Cannula 10/11 1445 94 Nasal 2.0L Cannula 10/11 1305 96.6 89 19 110/68 98 Nasal 2.0L Cannula Allergies Coded Allergies: haloperidol (From HALDOL) (SWELLING 04/12/16) heparin (SWELLING 04/12/16) vancomycin (HIVES, SKIN CRACKES, TURNS RED, SWELLS AND PEELS 04/12/16) warfarin (SWELLS, TURNS, RED, HIVES, SKIN CRACKS AND PEELS 04/12/16) Reconcile Medications Acetaminophen (Tylenol) 325 MG TABLET 325 MG PO Q6P PRN PAIN SCALE 1-3 (MILD) Albuterol Sulfate 2.5 MG/3 ML (0.083 %) VIAL.NEB 1 Vial INH/MATT Q4P PRN SHORTNESS OF BREATH (Reported) Apixaban (Eliquis) 5 MG TABLET 5 MG PO BID atrial fibrillation Ascorbate Calcium (Vitamin C) 500 MG TABLET 1 TAB PO BID SUPPLEMENT (Reported ) Aspirin (Ecotrin*) 81 MG TABLET.DR 1 TAB PO DAILY HEART (Reported) Atomoxetine HCl (Strattera) 40 MG CAPSULE 1 CAP PO QAM MENTAL HEALTH ( Reported) Baclofen 20 MG TABLET 1 TAB PO BID MUSCLE RELAXER (Reported) Bisacodyl (Dulcolax) 10 MG SUPP.RECT 1 SUP RC EOD GI (Reported) Budesonide/Formoterol Fumarate (Symbicort 80-4.5 Mcg Inhaler) 80 MCG-4.5 MCG/ ACTUATION HFA.AER.AD 2 PUF INH BID COPD Doxycycline Hyclate 100 MG CAPSULE 1 CAP PO BID infection (Reported) Evolocumab (Repatha Sureclick) 140 MG/ML PEN.INJCTR 1 ML SC Q2W CHOLESTEROL ( Reported) Furosemide 20 MG TABLET 3 TAB PO Q48 DIURETIC (Reported) Gabapentin 600 MG TABLET 1 TAB PO TID NEUROPATHY (Reported) Guaifenesin (Mucinex) 600 MG TAB.ER.12H 2 TAB PO BID MUCUS (Reported) Lactobacillus Acidophilus (Acidophilus) 1 EACH CAPSULE 1 CAP PO BID PROBIOTIC (Reported) Lorazepam (Ativan) 1 MG TABLET 1 TAB PO BID ANXIETY (Reported) Magnesium Oxide (Magnesium) 400 MG CAPSULE 1 CAP PO 0600 SUPPLEMENT (Reported ) Metoprolol Tartrate 25 MG TABLET 12.5 MG PO BID heart rate Montelukast Sodium (Singulair) 10 MG TABLET 1 TAB PO DAILY ASTHMA (Reported) Multivitamin (Multi-Day Vitamins) 1 EACH TABLET 1 TAB PO DAILY SUPPLEMENT ( Reported) Nortriptyline HCl 10 MG CAPSULE 1 CAP PO QPM MENTAL HEALTH (Reported) Omeprazole 20 MG CAPSULE.DR 1 CAP PO DAILY GI (Reported) Oxycodone HCl/Acetaminophen (Oxycodone-Acetaminophen 5-325) 5 MG-325 MG TABLET 1-2 TAB PO Q4H PRN PAIN (Reported) Pantoprazole Sodium (Protonix) 40 MG TABLET.DR 1 TAB PO DAILY ACID REFLUX ( Reported) Potassium Chloride 20 MEQ TAB.ER.PRT 1 TAB PO DAILY SUPPLEMENT (Reported) Rifampin (Rifadin) 300 MG CAPSULE 1 CAP PO BID MRSA PROPHYLAXIS (Reported) Sotalol (Betapace) 80 MG TABLET 80 MG PO BID AARYTHMIAS Tiotropium [place] (Spiriva) 18 MCG CAP.W.DEV 1 CAP INH DAILY BREATHING ( Reported) Trazodone HCl 50 MG TABLET 1 TAB PO QPM PRN SLEEP (Reported) Triage Note: 66 YO MALE BIBA FROM [employer] [facility]. PER EMS, THEY WERE CALLED BECAUSE PT SEEMED ALTERED. ON EMS ARRIVAL PT A&O X3. ON ARRIVAL TO ER PT ALERT AND ORIENTED. STATES HE IS AT [facility] FOR [facility] D/T BROKEN R FOOT X1 MONTH AGO. STATES HE IS DUE TO GO HOME [place]. ARRIVES WITH BEAVERS IN PLACE, STATES THEY PLACED IT WHEN HE BROKE HIS FOOT, STATES HE NORMALLY STRAIGHT CATH'S HIMESELF AT HOME. PT ALSO NOTED WITH NONPRODUCTIVE COUGH STATES THAT HAS BEEN THERE FOR "AWHILE" PT ON 2L OXYGEN VIA NC AT BASELINE. PT HAS NO COMPLINANTS. Triage Nurses Notes Reviewed? yes Onset: Abrupt Duration: day(s): Timing: recent history No Modifying Factors: none HPI: 66-year-old male comes into emergency room for further evaluation of supposedly increased confusion and slurring of words and increased weakness and fatigue is been going on for the past 3 weeks. Patient is currently coming from nursing facility. He is supposed to be discharged tomorrow. Patient had a recent fracture in his right lower extremity as well as new onset A. fib. On Eliquis. He denies any chest pain. He reports that he's been short of breath with coughing. This is his normal baseline on oxygen. Sees Dr. Bustillos. Denies vomiting. Denies any other system symptoms. (KIERRA TOWNSEND) Past History Travel History Traveled to [place] past 21 day No Medical History Any Pertinent Medical History? see below for history Neurological: SPINAL INFECTION EENT: NONE Cardiovascular: AFIB, hypertension, hyperlipidemia Respiratory: asthma, COPD, OXYGEN DEPEND 2L Gastrointestinal: NONE Hepatic: NONE Renal: neurogenic bladder, BEAVERS IN PLACE Musculoskeletal: PARAPLEGIA FROM mrsa INFECTION OF SPINE Psychiatric: NONE Endocrine: NONE Blood Disorders: NONE Cancer(s): NONE SWITCHMAN SUPERVISOR/Reproductive: NONE History of MRSA: Yes History of VRE: No History of CDIFF: No Influenza Vaccine: 02/21/16 Surgical History Surgical History: non-contributory Psychosocial History Who do you live with Significant Other Services at Home Home Health Aide, SOCIAL SERVICES MANAGER MORNING & EVENING What is your primary language Frisian Tobacco Use: Never used Family History Family History, If Any: Relation not specified for: *No pertinent family history Hx Contributory? No (KIERRA TOWNSEND) Review of Systems Review of Systems Constitutional: Reports: see HPI. EENTM: Reports: no symptoms. Respiratory: Reports: see HPI. Cardiovascular: Reports: no symptoms. GI: Reports: no symptoms. Genitourinary: Reports: see HPI. Musculoskeletal: Reports: no symptoms. Skin: Reports: no symptoms. Neurological/Psychological: Reports: no symptoms. Hematologic/Endocrine: Reports: no symptoms. Immunologic/Allergic: Reports: no symptoms. All Other Systems: Reviewed and Negative (KIERRA TOWNSEND) Physical Exam Physical Exam General Appearance: alert, awake, comfortable Head: atraumatic, normal appearance Eyes: Bilateral: normal appearance, PERRL, EOMI. Ears, Nose, Throat: normal pharynx, normal ENT inspection Neck: normal inspection Respiratory: no respiratory distress, decreased breath sounds Cardiovascular: regular rate/rhythm Gastrointestinal: soft Back: normal inspection Extremities: limited range of motion Neurologic/Psych: awake, alert, oriented x 3, normal gait, normal mood/affect Skin: intact, normal color Core Measures ACS in differential dx? No CVA/TIA Diagnosis: No Severe Sepsis Present: No Septic Shock Present: No (MONO PACKER,KIERRA) Progress Differential Diagnosis: arrythmia, alcohol intoxication, benign positional vertigo, CVA/stroke, dehydration, encephalitis, electrolyte imbalance, GI bleed, hypoglycemia, hypoxia, intracranial Hem., intracranial mass/tumor, meningitis, pneumonia, presyncope, sepsis, UTI/pyelo Plan of Care: Orders Procedure Date/time Status LACTIC ACID 10/12 1615 Active CULTURE,URINE 10/12 1315 Active BLOOD CULTURE 10/12 1315 Active URINALYSIS 10/12 1315 Complete TROPONIN LEVEL 10/12 1315 Complete LACTIC ACID 10/12 1315 Complete COMPREHENSIVE METABOLIC PANEL 10/12 1315 Complete CBC WITHOUT DIFFERENTIAL 10/12 1315 Complete B-TYPE NATRIURETIC PEP (BNP) 10/12 1315 Complete EKG 10/12 1315 Active Laboratory Tests 10/11/16 1505: Urine Color YEL, Urine Clarity TURBD H, Urine pH >= 9.0 H, Ur Specific [place] <= 1.005, Urine Protein >=300 H, Urine Ketones NEG, Urine Nitrite POS H, Urine Bilirubin NEG, Urine Urobilinogen 1.0, Ur Leukocyte Esterase MOD H, Ur Microscopic SEDIMENT EXAMINED, Urine RBC PACKD H, Urine WBC 5-10 H, Urine Crystals 3+ TRIP PHOS H, Urine Bacteria PACKD H, Micro UA Comment MORE INFO: H, Urine Hemoglobin SMALL H, Urine Glucose NEG 10/11/16 1425: Anion Gap 8, Estimated GFR > 60, BUN/Creatinine Ratio 36.0 H, Glucose 91, Lactic Acid 0.9, Calcium 9.3, Total Bilirubin 0.6, AST 33, ALT 57, Alkaline Phosphatase 91, Troponin I < 0.01, Odd-M-Sditnwmzkfn Pept 408 H, Total Protein 6.5, Albumin 3.2 L, Globulin 3.3, Albumin/Globulin Ratio 1.0 L, CBC w Diff NO MAN DIFF REQ, RBC 4.54 L, MCV 91.0, MCH 29.8, RDW 16.3 H, MPV 9.1, Gran % 66.0 , Lymphocytes % 17.8 L, Monocytes % 5.4, Eosinophils % 10.6 H, Basophils % 0.2 , Absolute Granulocytes 8.0 H, Absolute Lymphocytes 2.2, Absolute Monocytes 0.7 H, Absolute Eosinophils 1.3, Absolute Basophils 0, PUBS MCHC 32.7 L Microbiology 10/11 1505 URINE ROUT: Urine Culture - RECD 10/11 1425 BLOOD: Blood Culture - RECD 10/11 1415 BLOOD: Blood Culture - RECD Diagnostic Imaging: Viewed by Me: Radiology Read. Discussed w/RAD: Radiology Read. Radiology Impression: SERVICE DATE: 10/11/16 EXAM TYPE: RAD - XRY- PORTABLE CHEST XRAY EXAMINATION: XR PORTABLE CHEST CLINICAL INFORMATION: Shortness of breath COMPARISON: 08/30/2016 TECHNIQUE: Portable frontal view of the chest was obtained. FINDINGS: Low lung volumes. Persistent hazy left basilar opacity likely associated with a small pleural effusion and associated airspace disease. No pneumothorax. The cardiomediastinal silhouette is unchanged. No acute osseous abnormality. IMPRESSION: Hazy left basilar opacity is similar to previous. This likely represents a combination of small pleural effusion with atelectasis/pneumonia. DICTATED BY: ESPINOZA PALMER MD DATE/TIME DICTATED:1406 COUNTER STITCHER:PAULO DATE/TIME TRANSCRIBED:10/11/161406 CONFIDENTIAL, DO NOT COPY WITHOUT APPROPRIATE AUTHORIZATION Initial ED EKG: normal intervals, normal p-waves, normal QRS complex, normal sinus rhythm, rate (84) Comments: 10/11/2016 5:17:09 PM Patient clinically looks well. He does not appear to be any type of distress. He is alert and oriented with no slurring of words here. There is no loss of consciousness during these events. They do not sound like they are TIA/stroke related. one of the nurses in the emergency room spoke with the nursing facility and they report they have not witnessed any of these episodes and he's been completely fine. He is due to get discharge tomorrow. Case discussed with Dr. cobb. Patient understands and agrees with plan of care. Reevaluated multiple times. He was instructed that the patient be started on Levaquin. This will cover possible UTI versus pneumonia. Waiting on urine culture. (KIERRA TOWNSEND) Departure Departure Disposition: ACUTE REHAB FACILITY Condition: Stable Clinical Impression Primary Impression: Pneumonia Secondary Impressions: UTI (urinary tract infection) Referrals: STACI VOGEL,LALA Gray (PCP/Family) Additional Instructions: Patient to be started on oral Levaquin 750 for 5 days. Have urine culture followed up. Have patient rechecked by primary care doctor or . mariaa ribeiro within the next 48 hours. Return if any other concerns worsening symptoms. Please go over all results of today's visit with your primary care doctor. Contact your primary care doctor to let them know you were here in the emergency room. There may be nonspecific findings which may not be related to your visit today here in the emergency room but may require further evaluation and chronic monitoring by your primary care doctor. If you had a laceration today the chance of foreign body always remains. You should follow-up with your primary care doctor for recheck in 3-5 days for a wound check. If you had an x-ray done there is a chance that a fracture could have been missed on initial read and you should follow-up with your primary care doctor for repeat x-rays if symptoms persist. If your blood pressure was elevated here in the emergency room please have rechecked by her primary care doctor within the next 48 hours by your primary care doctor. If you were prescribed a narcotic here in the emergency room or any type of controlled substances you're not allowed to drive while taking this medication or operate any type of heavy machinery. Narcotics can make you feel lightheaded dizziness nausea and can cause constipation. You may need to pickup driver a stool softener. Thank you for choosing [facility] emergency room. Please return to the emergency room immediately if you have any other concerns worsening of symptoms. Departure Forms: Customer Survey General Discharge Information (KIERRA TOWNSEND) PA/MISSILE AND MISSILE CHECKOUT TECHNICIAN Co-Sign Statement Statement: ED Attending supervision documentation- [X] I saw and evaluated the patient. I have also reviewed all the pertinent lab results and diagnostic results. I agree with the findings and the plan of care as documented in the PA's/MISSILE AND MISSILE CHECKOUT TECHNICIAN's documentation. [X] I have reviewed the ED Record and agree with the PA's/MISSILE AND MISSILE CHECKOUT TECHNICIAN's documentation. [] Additions or exceptions (if any) to the PAs/MISSILE AND MISSILE CHECKOUT TECHNICIAN's note and plan are summarized below: [] (YEIMI VOGEL,AMINA)
[2016-10-11 16:17] VITALS: BP 118/66
== END 2016-10-11 17:16 ==
LOC: ERH 12:55
PROVIDERS: Physician Assistant Medical
DX: J18.9 Pneumonia, unspecified organism (principal); N39.0 Urinary tract infection, site not specified; I48.91 Unspecified atrial fibrillation; Z79.01 Long term (current) use of anticoagulants; J44.9 Chronic obstructive pulmonary disease, unspecified; Z99.81 Dependence on supplemental oxygen; R29.810 Facial weakness
CPT/HCPCS: 1263; 81001; 87040; 87086; 93005; 93010

== ENCOUNTER 2016-12-07 17:42 | Inpatient (IN) | payer OTHER, MEDICARE ==
[~2016-12-07] VITALS: Ht 175.3 cm; Wt 106.1 kg
[~2016-12-07 17:42] MED LIST changes: +OMEPRAZOLE20 M2 PO; +TRAZODONE HCL50 M1 PO
--- NOTE | 2016-12-07 18:12 | NUR ---
ST CATH FOR URINE SAMPLE, 50CC OBTAINED AND TRIO SENT TO LAB. PT ALERT WITH NO COMPLAINTS PRESENTLY WHILE AWAITING RESULTS.
--- NOTE | 2016-12-07 18:12 | NUR ---
JACQUELINE FROM HOME. REPORTS HE CALLED DR DIEHL TO REPORT ?UTI SX (ODOR AND "LEAKING" INCONTINENCE WHICH PT THEN REPORTS HAS BECOME CHRONIC; PT WITH HX OF NEUROGENIC BLADDER WITH PREVIOUS CHRONIC BEAVERS NOW REMOVED AND STRAIGHT CATHS SELF [id number]). REPORTS MD DID NOT ORDER ANY OUTPT LABS, "TOLD ME I NEEDED ADMISSION AND HE WANTS TO TAKE ME TO THE OR TO TAKE A LOOK IN MY BLADDER ON TUESDAY." PT HAD AN OLD PRESCRIPTION FOR CIPRO WITH 1 REFILL LEFT WHICH HE BEGAN TAKING. HAS RECENTLY BEEN TX FOR PNA, STILL WITH OCC COUGH AND LOW GRADE FEVERS.
[2016-12-07] MEDS ORDERED: MARI PO (18:44)
[2016-12-07] MEDS ORDERED: VENTOLIN HFA18 GM INH (18:45)
[2016-12-07] MEDS ORDERED: INCRUSE ELLI62.5 MCG (18:45)
--- NOTE | 2016-12-07 19:34 | ED GENERAL ADULT ---
History of Present Illness General Chief Complaint: Male Genitourinary Problems Stated Complaint: BIBA FOR ?UTI Source: patient, old records Exam Limitations: no limitations Vital Signs & Intake/Output Vital Signs & Intake/Output Vital Signs Date Time Temp Pulse Resp B/P B/P Pulse O2 O2 Flow FiO2 Mean Ox Delivery Rate 12/10 2307 98.6 76 16 144/70 94 12/10 2221 150/64 12/10 1927 94 Nasal 2.0L Cannula 12/10 1600 93 Nasal 2.0L Cannula 12/10 1521 97.9 78 16 148/68 93 Nasal 2.0L Cannula 12/10 0925 74 126/70 12/10 0925 95 Nasal 2.0L Cannula 12/10 0910 95 Nasal 2.0L Cannula 12/10 0800 93 Nasal 2.0L Cannula 12/10 0743 98.1 74 20 127/71 91 Nasal 2.0L Cannula 12/10 0000 Nasal 2.0L Cannula 12/09 2350 98.1 81 22 156/73 93 Nasal 2.0L Cannula ED Intake and Output 12/10 0000 12/09 1200 Intake Total 2400 800 Output Total 4150 1125 Balance -1750 -325 Intake, IV 800 800 Intake, Oral 1600 Number 0 Bowel Movements Output, Urine 4150 1125 Allergies Coded Allergies: heparin (SWELLING 12/07/16) vancomycin (HIVES, SKIN CRACKES, TURNS RED, SWELLS AND PEELS 12/07/16) Triage Note: BIBA FROM HOME. REPORTS HE CALLED DR DIEHL TO REPORT ?UTI SX (ODOR AND "LEAKING" INCONTINENCE WHICH PT THEN REPORTS HAS BECOME CHRONIC; PT WITH HX OF NEUROGENIC BLADDER WITH PREVIOUS CHRONIC BEAVERS NOW REMOVED AND STRAIGHT CATHS SELF [id number]). REPORTS MD DID NOT ORDER ANY OUTPT LABS, "TOLD ME I NEEDED ADMISSION AND HE WANTS TO TAKE ME TO THE OR TO TAKE A LOOK IN MY BLADDER ON TUESDAY." PT HAD AN OLD PRESCRIPTION FOR CIPRO WITH 1 REFILL LEFT WHICH HE BEGAN TAKING. HAS RECENTLY BEEN TX FOR PNA, STILL WITH OCC COUGH AND LOW GRADE FEVERS. Triage Nurses Notes Reviewed? 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 Patient was transferred from [facility] during admission for right ankle fracture where he received approximately one month of rehabilitation where he states while in rehabilitation he developed pneumonia and since his discharge while he lives at home in a private residence he's been complaining of not feeling well, fevers noted at home between 101-103, persistent cough and generalized weakness and fatigue. Denies any headache chest pain and arm pain jaw pain nausea vomiting. Patient also has concerns of urine tract infection (CURTIS PACKER,EMILIA) Reconcile Medications Albuterol Sulfate 2.5 MG/3 ML (0.083 %) VIAL.NEB 1 Vial INH/MATT Q4P PRN SHORTNESS OF BREATH (Reported) Albuterol Sulfate (Ventolin Hfa) 90 MCG HFA.AER.AD 2 PUF INH AD PRN COPD ( Reported) Apixaban (Eliquis) 5 MG TABLET 5 MG PO BID atrial fibrillation Ascorbate Calcium (Vitamin C) 500 MG TABLET 1 TAB PO BID SUPPLEMENT (Reported ) Atomoxetine HCl (Strattera) 40 MG CAPSULE 1 CAP PO QAM MENTAL HEALTH ( Reported) Baclofen 20 MG TABLET 1 TAB PO BID MUSCLE RELAXER (Reported) Bisacodyl (Dulcolax) 10 MG SUPP.RECT 1 SUP RC EOD GI (Reported) Budesonide/Formoterol Fumarate (Symbicort 80-4.5 Mcg Inhaler) 80 MCG-4.5 MCG/ ACTUATION HFA.AER.AD 2 PUF INH BID COPD Cannabis (Marijuana Oil) (Unknown Strength) AMP (Unknown Dose) INH DAILY PAIN (Reported) Doxycycline Hyclate 100 MG CAPSULE 1 CAP PO BID infection (Reported) Evolocumab (Repatha Enick) 140 MG/ML PEN.INJCTR 1 ML SC Q2W CHOLESTEROL ( Reported) Furosemide 20 MG TABLET 3 TAB PO Q48 DIURETIC (Reported) Gabapentin 600 MG TABLET 1 TAB PO TID NEUROPATHY (Reported) Guaifenesin (Mucinex) 600 MG TAB.ER.12H 2 TAB PO BID MUCUS (Reported) Lactobacillus Acidophilus (Acidophilus) 1 EACH CAPSULE 1 CAP PO BID PROBIOTIC (Reported) Lorazepam (Ativan) 1 MG TABLET 1 TAB PO BID PRN ANXIETY (Reported) Magnesium Oxide (Magnesium) 400 MG CAPSULE 1 CAP PO 0600 SUPPLEMENT (Reported ) Metoprolol Tartrate 25 MG TABLET 12.5 MG PO BID heart rate Montelukast Sodium (Singulair) 10 MG TABLET 1 TAB PO DAILY ASTHMA (Reported) Multivitamin (Multi-Day Vitamins) 1 EACH TABLET 1 TAB PO DAILY SUPPLEMENT ( Reported) Nortriptyline HCl 10 MG CAPSULE 1 CAP PO QPM MENTAL HEALTH (Reported) Omeprazole 20 MG CAPSULE.DR 1 CAP PO DAILY GI (Reported) Oxycodone HCl/Acetaminophen (Oxycodone-Acetaminophen 5-325) 5 MG-325 MG TABLET 1-2 TAB PO Q4H PRN PAIN (Reported) Pantoprazole Sodium (Protonix) 40 MG TABLET.DR 1 TAB PO DAILY ACID REFLUX ( Reported) Potassium Chloride 20 MEQ TAB.ER.PRT 1 TAB PO DAILY SUPPLEMENT (Reported) Rifampin (Rifadin) 300 MG CAPSULE 1 CAP PO BID MRSA PROPHYLAXIS (Reported) Sotalol (Betapace) 80 MG TABLET 80 MG PO BID AARYTHMIAS Tiotropium [place] (Spiriva) 18 MCG CAP.W.DEV 1 CAP INH DAILY BREATHING ( Reported) Trazodone HCl 50 MG TABLET 1 TAB PO QPM PRN SLEEP (Reported) Umeclidinium [place] (Incruse Ellipta) (Unknown Strength) BLST.W.DEV (Unknown Dose) UNKNOWN (Reported) (SUZIE VOGEL,KENNETH Yoon) Past History Travel History Traveled to [place] past 21 day No Medical History Any Pertinent Medical History? see below for history Neurological: C6-7 ABSCESS EENT: NONE Cardiovascular: AFIB, hypertension, hyperlipidemia, myocardial infarction Respiratory: asthma, COPD, OXYGEN DEPEND 2L Gastrointestinal: NONE Hepatic: NONE Renal: neurogenic bladder Musculoskeletal: PARAPLEGIA R/T ABSCESS Psychiatric: NONE Endocrine: NONE Blood Disorders: NONE Cancer(s): NONE MULE DEVELOPER/Reproductive: NONE History of MRSA: Yes History of VRE: No History of CDIFF: No Isolation History: Contact Influenza Vaccine: 02/21/16 Surgical History Surgical History: non-contributory Psychosocial History Who do you live with Significant Other Services at Home 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 No (EMILIA MARSH) Review of Systems Review of Systems Constitutional: Reports: see HPI, fever, weakness. EENTM: Reports: no symptoms. Respiratory: Reports: see HPI, cough. Cardiovascular: Reports: no symptoms. GI: Reports: no symptoms. Genitourinary: Reports: no symptoms. Musculoskeletal: Reports: no symptoms. Skin: Reports: no symptoms. Neurological/Psychological: Reports: no symptoms. Hematologic/Endocrine: Reports: no symptoms. Immunologic/Allergic: Reports: no symptoms. All Other Systems: Reviewed and Negative (EMILIA MARSH) Physical Exam Physical Exam General Appearance: no apparent distress, alert, comfortable Respiratory: no respiratory distress, quiet respiration, decreased breath sounds Comments: HEENT: Normal EENT exam, extraocular motion intact, no nystagmus. Pupils equally round and reactive to light and accommodation. Nose is atraumatic. External auditory canal and Tympanic membranes clear. Pharynx normal. No swelling or edema. Neck: Supple, no lymphadenopathy, normal range of motion without pain or tenderness Back: Nontender, no CVA tenderness. Cardiovascular: Regular rate and rhythms no murmurs rubs or gallops, normal JVP Abdomen: Soft, nontender nondistended, no appreciable organomegaly. Normal bowel sounds. No ascites Extremity: No edema, no calf tenderness to palpation, normal and equal pulses. Neuro: Alert oriented x3, motor sensory normal, Skin: No appreciable rash on exposed skin, skin is warm and dry. Psych: Mood and affect is normal, memory and judgment is normal. Core Measures ACS in differential dx? No CVA/TIA Diagnosis: No Severe Sepsis Present: No Septic Shock Present: No (EMILIA MARSH) Progress Differential Diagnoses I considered the following diagnoses in my evaluation of the patient: [Pneumonia , upper respiratory infection, UTI, sepsis, pneumothorax, PE, myocardial infarction, CHF, bronchitis] Plan of Care: Orders Procedure Date/time Status CBC WITHOUT DIFFERENTIAL 12/11 0600 Active BASIC ELECTROLYTES PLUS BUN&CR 12/11 0600 Active LOWER RESPIRATORY CULTURE 12/10 1614 Active Turn and Reposition 12/10 1140 Active Skin Integrity Protocol 12/10 1139 Active Beavers, Insertion/Removal/Asses 12/10 1000 Active Change service to 12/10 0739 Active Current Medications Sig/Danni Start time Last Medication Dose Stop Time Status Admin Prednisone 10 MG DAILY 12/14 1000 AC 12/15 1001 Prednisone 20 MG DAILY 12/12 1000 AC 12/13 1001 Prednisone 30 MG DAILY 12/10 1000 AC 12/10 12/11 1001 0925 Metoprolol Tartrate 12.5 MG BID 12/09 1200 AC 12/10 (Lopressor) 2221 Furosemide 60 MG Q48 12/09 1000 AC 12/09 (Lasix) 1034 Sotalol HCl 80 MG BID 12/09 1000 AC 12/10 (Betapace) 2221 Nortriptyline HCl 10 MG QPM 12/08 2200 AC 12/10 (Aventyl 10MG - 222 Pamelor Cap) Albuterol Sulfate 3 ML EVERY 4 HRS/AWAKE 12/08 1600 AC 12/10 (Proventil) 1922 Bisacodyl 10 MG DAILY PRN 12/08 1400 AC 12/10 (Dulcolax Supp) 1731 Guaifenesin 1,200 MG BID 12/08 1000 AC 12/10 (Mucinex) 2220 Montelukast Sodium 10 MG DAILY 12/08 1000 AC 12/10 (Singulair) 0925 Multivitamins 1 TAB DAILY 12/08 1000 AC 12/10 Therapeutic 0925 (Theragran-M Vitamins Tabs) Rifampin 300 MG DAILY 12/08 1000 AC 12/10 (Rifadin-Rimactane 0925 300MG Cap) Tiotropium [place] 1 PUF DAILY 12/08 1000 AC 12/10 (Spiriva) 0926 Gabapentin 600 MG Q8H 12/08 0930 AC 12/10 (Neurontin) 1619 Omeprazole 20 MG DAILY AC 12/08 0700 AC 12/10 (Prilosec) 0605 Trazodone HCl 50 MG QPM PRN 12/07 2345 AC 12/10 (Desyrel) 2226 Albuterol Sulfate 2 PUF Q6P PRN 12/07 2330 AC 12/10 (Ventolin) 1731 Albuterol Sulfate 3 ML Q4P PRN 12/07 2330 AC 12/08 (Proventil) 1028 Lorazepam 1 MG BID PRN 12/07 2330 AC (Ativan) Baclofen 20 MG BID 12/07 2327 AC 12/10 (Lioresal 10MG 2221 Tablet) Doxycycline Hyclate 100 MG BID 12/07 2326 AC 12/10 (Vibramycin) 2220 Apixaban 5 MG BID 12/07 232 AC 12/10 (Eliquis) 2221 Laboratory Tests 12/10/16 0705: Anion Gap 5, Estimated GFR > 60, BUN/Creatinine Ratio 30.0 H, CBC w Diff NO MAN DIFF REQ, RBC 4.01 L, MCV 90.8, MCH 29.3, RDW 15.4 H, MPV 8.2, Gran % 75.6 H, Lymphocytes % 14.7 L, Monocytes % 6.7, Eosinophils % 2.8, Basophils % 0.2, Absolute Granulocytes 11.2 H, Absolute Lymphocytes 2.2, Absolute Monocytes 1.0 H, Absolute Eosinophils 0.4, Absolute Basophils 0, PUBS MCHC 32.2 L Microbiology 12/10 161 LOWER RESP: Respiratory Culture - RECD 12/10 1618 LOWER RESP: Gram Stain - RECD On initial examination patient had decreased breath sounds. Patient was afebrile however has leukocytosis. Due to patient's comorbidities I discussed patient with Dr. SMALL in which he advised patient to be admitted for concerns of immunocompromise state, fevers and COPD history and concerns of pneumonia on chest x-ray. (CURTIS PACKER,EMILIA) Diagnostic Imaging: Viewed by Me: Radiology Read. CXR Impression: SEE COMMENTS Initial ED EKG: none Comments: PATIENT: ESTUARDO PEREZ PRESENT AGE: 66 PATIENT ACCOUNT NO: [id number] : 49 LOCATION: [facility] ORDERING PHYSICIAN: EMILIA PACKER SERVICE DATE: 12/07/16 EXAM TYPE: RAD - XRY-CHEST XRAY, PA AND LATERAL EXAMINATION: CHEST 2 VIEWS CLINICAL INFORMATION: Cough, shortness of breath. COMPARISON: 10/11/2016. TECHNIQUE: PA and lateral views of the chest were obtained. FINDINGS: The cardiac silhouette is not enlarged. The mediastinal and hilar contours are unremarkable. There is obscuration of the left hemidiaphragm and faint retrocardiac opacification. The osseous structures are unremarkable. IMPRESSION: Retrocardiac opacification and obscuration of the left hemidiaphragm suspicious for a left lower lobe infiltrate. Recommendation is for a followup chest series to be obtained following treatment and/or resolution of symptoms to assure resolution of this appearance. DICTATED BY: GURMEET LOPEZ MD DATE/TIME DICTATED:12/07/161999 TRUCK ENGINE TECHNICIAN:PAULO DATE/TIME TRANSCRIBED:12/07/161999 (EMILIA MARSH) Departure Departure Disposition: STILL A PATIENT Condition: Stable Clinical Impression Primary Impression: Pneumonia Secondary Impressions: COPD (chronic obstructive pulmonary disease) Referrals: LALA SMALL MD (PCP/Family) Departure Forms: Customer Survey General Discharge Information Admission Note Spoke With: PONCHO LOPEZ MD Documentation of Exam: Documentation of any treatments & extenuating circumstances including Concerns Regarding Discharge (functional status, medication knowledge or non-compliance, living conditions, etc.) that warrant an admission rather than observation: [ Discussed admission with who agrees with general medicine admission for concerns of COPD and pneumonia. Patient requires IV antibiotics, pulmonary consultation, IV steroids and repeat nebulizer treatments. Outpatient treatment at this time would be medically harmful] (EMILIA MARSH) PA/INNER DIAMETER GRINDER TOOL Co-Sign Statement Statement: ED Attending supervision documentation- [x] I saw and evaluated the patient. I have also reviewed all the pertinent lab results and diagnostic results. I agree with the findings and the plan of care as documented in the PA's/INNER DIAMETER GRINDER TOOL's documentation. [] I have reviewed the ED Record and agree with the PA's/INNER DIAMETER GRINDER TOOL's documentation. [] Additions or exceptions (if any) to the PAs/INNER DIAMETER GRINDER TOOL's note and plan are summarized below: [] (SUZIE VOGEL,KENNETH Yoon) Critical Care Note Critical Care Note Critical Care Time: non-applicable (EMILIA MARSH)
--- NOTE | 2016-12-07 19:42 | NUR ---
SEEN BY BIRDIE ACEVEDO. SPUTUM CUP GIVEN, PT TO RADIOLOGY
--- NOTE | 2016-12-07 20:00 | NUR ---
BLOOD DRAWN AND SENT TO LAB. 1ST SET OF BLOOD CULTURES, LAV,SST,BLUE,PORRAS
--- NOTE | 2016-12-07 20:05 | RADIOLOGY REPORT ---
EXAMINATION: CHEST 2 VIEWS CLINICAL INFORMATION: Cough, shortness of breath. COMPARISON: 10/11/2016. TECHNIQUE: PA and lateral views of the chest were obtained. FINDINGS: The cardiac silhouette is not enlarged. The mediastinal and hilar contours are unremarkable. There is obscuration of the left hemidiaphragm and faint retrocardiac opacification. The osseous structures are unremarkable. IMPRESSION: Retrocardiac opacification and obscuration of the left hemidiaphragm suspicious for a left lower lobe infiltrate. Recommendation is for a followup chest series to be obtained following treatment and/or resolution of symptoms to assure resolution of this appearance.
[2016-12-07 20:07] LABS: ABSOLUTE BASOPHIL COUNT 0 /CUMM (0.0-0.2); ABSOLUTE EOSINOPHIL COUNT 0.4 /CUMM (0.0-0.7); ABSOLUTE GRANULOCYTE CT 10.2 /CUMM (1.4-6.5); ABSOLUTE LYMPH COUNT 2.2 /CUMM (1.2-3.4); ABSOLUTE MONOCYTE COUNT 0.8 /CUMM (0.10-0.60); BASOPHIL % 0.1 % (0.0-2.0); EOSINOPHIL % 2.7 % (0-5); GRANULOCYTE % 75.6 % (42.2-75.2); HEMATOCRIT 38.5 % (42-52); MEAN CORPUSCULAR HGB 28.9 PG (27.0-31.0); MEAN CORPUSCULAR VOLUME 90.3 FL (80.0-94.0); MEAN PLATELET VOLUME 7.5 FL (7.4-10.4); PLATELET COUNT 382 /CUMM (130-400); RBC DISTRIBUTION WIDTH 15.2 % (11.5-14.5); RED BLOOD CELL CT 4.27 /CUMM (4.70-6.10); WHITE BLOOD CELL COUNT 13.5 /CUMM (4.8-10.8)
--- NOTE | 2016-12-07 21:31 | NUR ---
RT CALLED FOR NEB
--- NOTE | 2016-12-07 22:26 | History & Physical ---
DEVAUGHN VOGEL,RAMÍREZ 12/07/16 2225: General Information and HPI MD Statement: I have seen and personally examined ESTUARDO PARK and documented this H&P. The patient is a 66 year old M who presented with a patient stated chief complaint of [referred by Dr. Polk]. 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 He was sent to the ED by Dr. Polk, his urologist. He c/o urinary leakage. The pt uses a straight catheter, and has never experienced leakage between catheterizations before. The pt also reports that recently his urine has been malodorous. He denies any pain or discomfort assocaited with urination. He also calims that several weeks ago he had penile discharge which has since resolved. The pt also reports that since his discharge in September 2016 for pneumonia he has continued to experience a dry productive cough that has not improved. Pt reports having fever, chills, night sweats and denies SOB, chest pain, and dyspnea. Allergies/Medications Allergies: Coded Allergies: heparin (SWELLING 12/07/16) vancomycin (HIVES, SKIN CRACKES, TURNS RED, SWELLS AND PEELS 12/07/16) Home Med list Albuterol Sulfate 2.5 MG/3 ML (0.083 %) VIAL.NEB 1 Vial INH/MATT Q4P PRN SHORTNESS OF BREATH (Reported) Albuterol Sulfate (Ventolin Hfa) 90 MCG HFA.AER.AD 2 PUF INH AD PRN COPD ( Reported) Apixaban (Eliquis) 5 MG TABLET 5 MG PO BID atrial fibrillation Ascorbate Calcium (Vitamin C) 500 MG TABLET 1 TAB PO BID SUPPLEMENT (Reported ) Atomoxetine HCl (Strattera) 40 MG CAPSULE 1 CAP PO QAM MENTAL HEALTH ( Reported) Baclofen 20 MG TABLET 1 TAB PO BID MUSCLE RELAXER (Reported) Bisacodyl (Dulcolax) 10 MG SUPP.RECT 1 SUP RC EOD GI (Reported) Budesonide/Formoterol Fumarate (Symbicort 80-4.5 Mcg Inhaler) 80 MCG-4.5 MCG/ ACTUATION HFA.AER.AD 2 PUF INH BID COPD Cannabis (Marijuana Oil) (Unknown Strength) AMP (Unknown Dose) INH DAILY PAIN (Reported) Doxycycline Hyclate 100 MG CAPSULE 1 CAP PO BID infection (Reported) Evolocumab (Repatha Sureclick) 140 MG/ML PEN.INJCTR 1 ML SC Q2W CHOLESTEROL ( Reported) Furosemide 20 MG TABLET 3 TAB PO Q48 DIURETIC (Reported) Gabapentin 600 MG TABLET 1 TAB PO TID NEUROPATHY (Reported) Guaifenesin (Mucinex) 600 MG TAB.ER.12H 2 TAB PO BID MUCUS (Reported) Lactobacillus Acidophilus (Acidophilus) 1 EACH CAPSULE 1 CAP PO BID PROBIOTIC (Reported) Lorazepam (Ativan) 1 MG TABLET 1 TAB PO BID PRN ANXIETY (Reported) Magnesium Oxide (Magnesium) 400 MG CAPSULE 1 CAP PO 0600 SUPPLEMENT (Reported ) Metoprolol Tartrate 25 MG TABLET 12.5 MG PO BID heart rate Montelukast Sodium (Singulair) 10 MG TABLET 1 TAB PO DAILY ASTHMA (Reported) Multivitamin (Multi-Day Vitamins) 1 EACH TABLET 1 TAB PO DAILY SUPPLEMENT ( Reported) Nortriptyline HCl 10 MG CAPSULE 1 CAP PO QPM MENTAL HEALTH (Reported) Omeprazole 20 MG CAPSULE.DR 1 CAP PO DAILY GI (Reported) Oxycodone HCl/Acetaminophen (Oxycodone-Acetaminophen 5-325) 5 MG-325 MG TABLET 1-2 TAB PO Q4H PRN PAIN (Reported) Pantoprazole Sodium (Protonix) 40 MG TABLET.DR 1 TAB PO DAILY ACID REFLUX ( Reported) Potassium Chloride 20 MEQ TAB.ER.PRT 1 TAB PO DAILY SUPPLEMENT (Reported) Rifampin (Rifadin) 300 MG CAPSULE 1 CAP PO BID MRSA PROPHYLAXIS (Reported) Sotalol (Betapace) 80 MG TABLET 80 MG PO BID AARYTHMIAS Tiotropium [place] (Spiriva) 18 MCG CAP.W.DEV 1 CAP INH DAILY BREATHING ( Reported) Trazodone HCl 50 MG TABLET 1 TAB PO QPM PRN SLEEP (Reported) Umeclidinium [place] (Incruse Ellipta) (Unknown Strength) BLST.W.DEV (Unknown Dose) UNKNOWN (Reported) Past History Travel History Traveled to [place] past 21 day No Medical History Neurological: C6-7 ABSCESS EENT: NONE Cardiovascular: AFIB, hypertension, hyperlipidemia, myocardial infarction Respiratory: asthma, COPD, OXYGEN DEPEND 2L Gastrointestinal: NONE Hepatic: NONE Renal: neurogenic bladder Musculoskeletal: PARAPLEGIA R/T ABSCESS Psychiatric: NONE Endocrine: NONE Blood Disorders: NONE Cancer(s): NONE BOOK CLEANER/Reproductive: NONE History of MRSA: Yes History of VRE: No History of CDIFF: No Isolation History: Contact Influenza Vaccine: 02/21/16 Surgical History Surgical History: non-contributory Past Family/Social History Family History Relations & Conditions if any Relation not specified for: *No pertinent family history Psychosocial History Where do you live? Home Who Do You Live With? partner Services at Home: Home Health Aide, GROUP BILLING COORDINATOR MORNING & EVENING Primary Language: Mohawk Smoking Status: Former Smoker ETOH Use: denies use Illicit Drug Use: marijuana Functional Ability ADLs Needs Assist: dressing, eating, toileting, bathing. Ambulation: wheelchair IADLs Independent: shopping, housework, finances, food prep, telephone, transportation , medication admin. Review of Systems Review of Systems Constitutional: Reports: see HPI. EENTM: Reports: no symptoms. Cardiovascular: Reports: edema. Denies: chest pain. Respiratory: Reports: cough, sputum production, wheezing. Denies: hemoptysis. GI: Reports: no symptoms. Genitourinary: Reports: see HPI. Musculoskeletal: Reports: no symptoms. Skin: Reports: no symptoms. Neurological/Psychological: Reports: no symptoms. Hematologic/Endocrine: Reports: no symptoms. Immunologic/Allergic: Reports: no symptoms. Exam & Diagnostic Data Last 24 Hrs of Vital Signs/I&O Vital Signs Date Time Temp Pulse Resp B/P B/P Pulse O2 O2 Flow FiO2 Mean Ox Delivery Rate 12/08 0806 98.1 90 20 177/77 99 Nasal 2.0L Cannula 12/08 0550 97.2 95 17 178/83 95 Nasal 2.0L Cannula 12/08 0149 97.8 95 16 177/77 94 Nasal 2.0L Cannula 12/07 2249 97.7 106 20 153/67 96 Nasal 2.0L Cannula 12/07 2143 96 Nasal 2.0L Cannula 12/078 98.9 104 20 177/81 98 Nasal 2.0L Cannula 12/07 1742 97.9 100 18 148/69 98 Nasal 2.0L Cannula Intake & Output 12/08 1600 12/08 0800 12/08 0000 Intake Total Output Total 225 Balance -225 Output, Urine 225 Patient 252 lb Weight Weight Bed scale Measurement Method Physical Exam General Appearance Alert, Oriented X3, Cooperative, No Acute Distress Skin No Rashes, No Breakdown, No Significant Lesion Skin Temp/Moisture Exam: Warm/Dry Sepsis Skin Exam (color): Normal for Ethnicity HEENT Atraumatic, PERRLA, EOMI, Mucous Membr. moist/pink Neck Supple, No JVD, +2 Carotid Pulse wo Bruit Lymphatic Cervical nl Cardiovascular Regular Rate, Normal S1, Normal S2, No Murmurs Lungs B/L expiratory wheezing Abdomen Normal Bowel Sounds, Soft, No Hepatospenomegaly, No Masses, mild TTP Neurological Normal Speech, Cranial Nerves 3-12 NL Extremities trace edema of the lower extremities B/L Vascular Normal Pulses, Pulses Symmetrical Sepsis Peripheral Pulse Location: Dorsalis Pedis Sepsis Peripheral Pulse Exam: Normal Sepsis Cap Refill Exam: <2 Sec Diagnostic Data CXR Results IMPRESSION: Retrocardiac opacification and obscuration of the left hemidiaphragm suspicious for a left lower lobe infiltrate. Recommendation is for a followup chest series to be obtained following treatment and/or resolution of symptoms to assure resolution of this appearance. 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 He presented to the ED complaining of urinary leakage, malodorous urine , persistent cough since his last admission for pneumonia, and fever. #CAP CXR shows left lower lobe infiltrate, cough has not resolved since admission and treatment for previous pneumonia. WBC: 13.5. Previously culture positive for psuedomonas - Ceftazidime Q8 - F/u cultures and change antibiotics as needed - ID consult #COPD exacerbation - prednisone taper 40 x 2 days, 30 x 2 days, 20 x 2 days, 10 x 2 days - Pulmonary consult with Dr. Bustillos - azithromycin for antiinflamatory properties - O2 nasal canula as needed - TRC consult - Albuterol - Montelukast 10 mg daily - f/u cbc #possible UTI UA significant for UrWBC 10-15, LE small, trace proteins, negative ntirites. Pt has hx of neurogenic bladder with frequent straight catheterizations (3-5 times daily) -consider urine culture if pt spikes fever - bladder this scan q8 if residual volume is 350cc, straight cath. - Follow-up urine cultures. - urology consult with Dr. Polk, cystoscopy if recommended #history of muscle spasms -c/w baclofen #history of AFIB - c/w eloquis BID #chronic lower extremity edema -c/w every other day lasix regimen. Next dose 12/08 #history of hyperlipidemia - c/w IM evolocumab every two weeks. Next dose 12/12 #history of JELANI - pt refuses CPAP #DVT prophylaxis - eliquis #Code status DNR/DNI As Ranked By This Provider Problem List: 1. COPD exacerbation 2. Pneumonia 3. UTI (urinary tract infection) Core Measures/Miscellaneous Acute Coronary Syndrome ACS Diagnosis: No Cerebrovascular Accident CVA/TIA Diagnosis: No Congestive Heart Failure CHF Diagnosis: No VTE (View Protocol) VTE Risk Factors: Age > 40, Immobility, paresis, Obesity [facility] prophylaxis d/t: No contraindications No VTE Pharm Prophylaxis d/t: No contraindications VTE Diagnosis: No VTE Type: NONE VTE Confirmed by (Test): NONE Sepsis (View Protocol) Severe Sepsis Present: No Septic Shock Septic Shock Present: No Miscellaneous Documentation Attending Case Discussed With: PONCHO LOPEZ MD Primary Care Physician: LALA SMALL MD Patient sees these Specialists Dr. Tressa Polk Level of Patient Care: General Medicine Consults Needed: 1 Consulting Specialty: Pulmonary Disease Consults Needed: 2 Consulting Specialty: Urology RYNE FERNANDEZ MD 12/08/16 0527: Resident Review Statement Resident Statement: examined this patient, discussed with international sales manager, agreed with international sales manager Other Findings: Mr Park is a 66 year old gentleman with past medical history of COPD on 2 L home oxygen, bilateral lower extremity (on Lasix Q48), hypertension, hyperlipidemia, history of atrial fibrillation on Eliquis, history of asthma, history of neurogenic bladder, depression, chronic constipation, coronary artery disease status post stent placement, IVC filter placement, infectious of MRSA of the spine and paraplegia on rifampin and doxycycline for chronic suppression therapy who presented to the emergency department complaining of fatigue, a cough, and a fever. Since patient discharge in September 2016 he has continued to experience a dry productive cough. In addition to the above, the patient also compalins of increased urinary frequency and urinary leakage. Patient states that he visited the office of Dr. Conn who recommended that he come to the emergency department for additional workup. He normally straight cath's himself. The patient also states that in addition to the above he has noted that his urine has a distinct odor to it. He also endorses decreased appetite. Patient follows up with Dr. Bustillos Patient follows up with Dr. Watson his cannon pinion adjuster. Patients Urologist is Dr Polk. R: Patient did endorse fever, chills and night sweats. He denied any chest pain , shortness of breath, wheezing or dyspnea and dyspnea on exertion. E: HEENT: extraocular motion intact, no nystagmus. Pupils equally round and reactive to light and accommodation. Nose is atraumatic. External auditory canal and Tympanic membranes clear. Pharynx normal. No swelling or edema. No Cervical lymphadenopathy. On Supplemental O2. Neck: Supple, no lymphadenopathy, normal range of motion without pain or tenderness Back: Nontender. Cardiovascular: Regular rate and rhythm no murmurs rubs or gallops. Respiratory: Chest nontender. Expiratory Wheezing Bilaterally. Abdomen: Soft, tender with light palpation. nondistended, no appreciable organomegaly. Bowel sounds normal. No ascites, no rebound or guarding. Extremity: No edema, no calf tenderness to palpation, normal and equal pulses. Neuro: Alert oriented to person and place,motor sensory normal, CN II to XII wnl. L:White cell count 13.5. H&H 12.3 and 38.5. Platelets 382. Electrolytes sodium 134, potassium 4.2, BUN/creatinine 14 and 0.6 respectively. CL 96. HCO3 33. Small amount of leukocyte esterase on urine. I: EXAM TYPE: RAD - XRY-CHEST XRAY, PA AND LATERAL IMPRESSION: Retrocardiac opacification and obscuration of the left hemidiaphragm suspicious for a left lower lobe infiltrate. Recommendation is for a followup chest series to be obtained following treatment and/or resolution of symptoms to assure resolution of this appearance. A/P Mr Park is a 66 year old gentleman extensive past medical history of who presented to the emergency department complaining of fatigue, a cough, and a fever. #CAP with synergistic exacerbation of COPD. Admit the patient to general med. IV ceftazidime every 8 hours. Patient has a history of pseudomonal growth November 2012. Sensitive to ceftazidime, ciprofloxacin, gentamicin and meropenem. Follow-up cultures tailor antibiotics appropriately. Infectious diseases consultation. * Exacerbation of COPD. We will treat the patient for COPD exacerbation with a prednisone taper. 40 * 2, 30 * 2, 20 * 2, 10*2 Obtain pulmonology consultation with patient's, pick pack worker Kiran Bustillos MD. Patient will also benefit from IV azithromycin for antiinflamatory properties and atypical viral coverage. Supplemental oxygen as needed. TRC Nebs Albuterol Sulfate. Montelukast 10 MG Daily. Repeat CBC in a.m. History of neurogenic bladder and possible UTI. Patient spikes may consider repeating urine culture. Bladder this scan every 8 hours if residual volumes are greater than 350 straight cath. Follow-up urine cultures. Obtain urology consult with Dr. Polk. Patient may be eligible for cystoscope. #History of Paraparesis Conitue chronic suppressive therapy with doxycycline and Rifampin History of muscle spasms. Continue Baclofen. History of atrial fibrillation Continue Eliquis twice a day. Chronic Lower Extremity Edema Continue Lasix every 48 hours. Next of 12/08/2016. History of Hyperlipidemia Continue IM shot of Evolocumab Every Two Weeks, Next shot, due Tuesday. Patient does have a history of obstructive sleep apnea however denies use of CPAP adamantly. Consider PT eval in a.m. DVT prophylaxis Eliquis. 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 He notes foul smell to his urine and has noted urine leaking, despite of him doing the straight cath protocol. He was recently treated with Levaquin for pneumonia (September 2016 while at [facility]) and for a UTI with Cipro (November 29). He reports that Dr. Polk asked him to come to the ER for treatment of his UTI. VSS. Exam: AAO, in mild respiratory distress, Chest b/l reduced air entry, expiratory wheeze++, scattered rhonchi+, Heart S1S2 regular, Abd soft, NT, LE: paraplegic, contractures. Labs: WBC 13.5, bicarb 33, UA trace protein and ketones, small LE, WBC 10-15. CXR s/o retrocardiac opacification and LLL infiltrate. 1. Community acquired pneumonia with COPD exacerbation. GM admit, TRC nebs, sputum culture, urine legionella and strep pneumo Ag, gentle hydration, IV Ceftaz (grown pseudomonas in sputum in the past) and azithro, he is already on doxy/rifampin (chronic suppression). Rapid prednisone taper and nebs. He needs Pulm consult (Dr. Bustillos). ID consult to help with antibiotic management. 2. Recurrent UTI. His urine is not very impressive. Patient states, dr. Polk plans to scope him on . Will give courtesy call to Dr. Polk. DVT ppx Eliquis. DNR/I.
--- NOTE | 2016-12-07 22:50 | NUR ---
PT CLEANED/CHANGED (INCONT OF URINE). ST CATH PER PT REQUEST FOR 175 CC CLEAR YELLOW. PT REQUESTING ORDER BE FOR PRN/PER PT REQUEST HE HAS NO CONSISTANT SCHEDULE AND IS ABLE TO TELL WHEN HE NEEDS ST CATH, REPORTS HE WAKES AT NIGHT WHEN CATH IS NEEDED WELL. ORDER OBTAINED. SKIN INTACT. MEDICATED PER EMAR. PT HAS HAD SPUTUM CUP FOR SEVERAL HOURS, UNABLE TO EXPECTORATE SAMPLE, AWARE OF NEED AND WILL ATTEMPT ABLE. AWAITING BED ASSIGNMENT. PO FLUIDS PROVIDED, PT ATE DINNER BROUGHT BY SIGNIFICANT OTHER. ALSO STATES SIGNIFICANT OTHER, CAIT[employer], IS HIS POA AND MAY RECIEVE UPDATES AT ANY TIME WITH ANY INFORMATION [facility] REQUESTS.
--- NOTE | 2016-12-07 23:08 | NUR ---
HOUSE STAFF AT BEDSIDE.
--- NOTE | 2016-12-07 23:30 | NUR ---
MOVED TO ROOM 8, SETTLED, CALL LIGHT AND PO FLUIDS IN REACH ALONG WITH SPUTUM CUP. REPORT GIVEN TO CHIEF ANALYTICS OFFICER, PT AWARE THAT HE WILL BE HELD OVER R/T NO AVAILABLE CONTACT ISO BEDS UPSTAIRS.
--- NOTE | 2016-12-07 23:52 | NUR ---
PHARMACY CALLED FOR MEDS
--- NOTE | 2016-12-08 00:54 | NUR ---
PHARMACY RECALLED FOR MEDS
--- NOTE | 2016-12-08 02:04 | NUR ---
PT MEDICATED PER EMAR. PT STRAIGHT CATHED USING STERILE TECHNIQUE WITH 300ML CLEAR YELLOW URINE.
--- NOTE | 2016-12-08 05:32 | NUR ---
PT NOTED TO BE ASLEEP ON BED. NORMAL RR NOTED. WILL CONTINUE TO MONITOR.
--- NOTE | 2016-12-08 06:02 | NUR ---
0600 LABS DRAWN AND SENT BY THIS [facility]ST. BLUE,SST,LAV
[2016-12-08 06:05] LABS: ABSOLUTE BASOPHIL COUNT 0 /CUMM (0.0-0.2); ABSOLUTE EOSINOPHIL COUNT 0 /CUMM (0.0-0.7); ABSOLUTE GRANULOCYTE CT 12.2 /CUMM (1.4-6.5); ABSOLUTE LYMPH COUNT 1.7 /CUMM (1.2-3.4); ABSOLUTE MONOCYTE COUNT 0.4 /CUMM (0.10-0.60); BASOPHIL % 0.1 % (0.0-2.0); EOSINOPHIL % 0.2 % (0-5); HEMATOCRIT 37.3 % (42-52); MEAN CORPUSCULAR HGB 28.9 PG (27.0-31.0); MEAN CORPUSCULAR HGB CONC 31.9 G/DL (33.0-37.0); MEAN CORPUSCULAR VOLUME 90.7 FL (80.0-94.0); MEAN PLATELET VOLUME 7.2 FL (7.4-10.4); PLATELET COUNT 382 /CUMM (130-400); RBC DISTRIBUTION WIDTH 15.9 % (11.5-14.5); RED BLOOD CELL CT 4.11 /CUMM (4.70-6.10); WHITE BLOOD CELL COUNT 14.4 /CUMM (4.8-10.8)
--- NOTE | 2016-12-08 06:20 | NUR ---
PT STRAIGHT CATH'D USING STERILE TECHNIQUE. 200ML OF CLEAR YELLOW URINE EXPELLED.
[2016-12-08 06:42] LABS: GRANULOCYTE % 84.6 % (42.2-75.2)
--- NOTE | 2016-12-08 06:44 | Admission Certification ---
Admission Certification Certification Statement - As attending physician, I certify that at the time of - admission, based on clinical presentation, severity of - symptoms, need for further diagnostic testing and - therapeutic interventions, and risk of adverse outcomes - without in-hospital treatment, in my clinical assessment, - this patient requires an acute hospital stay for a minimum - of two nights or longer. I have also considered psychsocial - factors such as support system, advanced age, financial - issues, cognitive issues, and failed out-patient treatments, - past re-admission history, safety of patient, and lack of - compliance as applicable. Specific rationale supporting this admission is: Community acquired pneumonia, COPD exacerbation.
--- NOTE | 2016-12-08 07:33 | NUR ---
REPORT GIVEN TO ZUNILDA PAT.
--- NOTE | 2016-12-08 07:37 | PN- Housestaff ---
Subjective Follow-up For: COPD exacerbation. Subjective: I have seen and examined the patient. The patient was eating comfortably in the bed. He is paraplegic history of spinal abscess. He continues to have a moderate cough with scant sputum production and mild to moderate difficulty breathing. He denies nausea vomiting chest pain and palpitations. Review of Systems Constitutional: Denies: diaphoresis, fever. Cardiovascular: Denies: chest pain, palpitations. Respiratory: Reports: cough, short of breath, sputum production. Gastrointestinal: Reports: no symptoms. Musculoskeletal: Reports: no symptoms. Objective Last 24 Hrs of Vital Signs/I&O Vital Signs Date Time Temp Pulse Resp B/P B/P Pulse O2 O2 Flow FiO2 Mean Ox Delivery Rate 12/08 1535 Nasal 2.0L Cannula 12/08 1038 95 Nasal 2.0L Cannula 12/08 0806 98.1 90 20 177/77 99 Nasal 2.0L Cannula 12/08 0550 97.2 95 17 178/83 95 Nasal 2.0L Cannula 12/08 0149 97.8 95 16 177/77 94 Nasal 2.0L Cannula 12/07 2249 97.7 106 20 153/67 96 Nasal 2.0L Cannula 12/07 2143 96 Nasal 2.0L Cannula 12/07 2058 98.9 104 20 177/81 98 Nasal 2.0L Cannula 12/07 1742 97.9 100 18 148/69 98 Nasal 2.0L Cannula Intake & Output 12/08 1600 12/08 0800 12/08 0000 Intake Total 250 Output Total 450 225 Balance -200 -225 Intake, IV 250 Output, Urine 450 225 Patient 252 lb Weight Weight Bed scale Measurement Method Physical Exam General Appearance: Alert, Oriented X3, Cooperative, No Acute Distress Skin: No Rashes, No Breakdown Cardiovascular: Normal S1, Normal S2, No Murmurs Lungs: Few scattered crepitation with expiratory prolongation and mild wheeze. There is no respiratory distress. Abdomen: Normal Bowel Sounds, Soft, No Tenderness Extremities: No Clubbing, No Cyanosis Current Medications: Current Medications Sig/Danni Start time Last Medication Dose Route Stop Time Status Admin Albuterol Sulfate 3 ML EVERY 4 HRS/AWAKE 12/08 1600 AC 12/08 INH 1553 Albuterol Sulfate 2 PUF Q6P PRN 12/07 2330 AC 12/08 INH 1430 Albuterol Sulfate 3 ML Q4P PRN 12/07 2330 AC 12/08 INH 1028 Albuterol Sulfate 3 ML ONCE ONE 12/07 2115 DC 12/07 INH 12/07 211 2138 Apixaban 5 MG BID 12/07 2325 AC 12/08 PO 0938 Azithromycin 500 MG DAILY 12/08 1000 AC 12/08 Sodium Chloride 250 ML IV 0938 Baclofen 20 MG BID 12/07 2327 AC 12/08 PO 0938 Bisacodyl 0 .STK-MED ONE 12/08 1425 DC RI Bisacodyl 10 MG DAILY PRN 12/08 1400 AC 12/08 RI 1425 Cefazolin Sodium 1,000 MG ONCE ONE 12/07 2145 CAN IV 12/07 2146 Ceftazidime 0 .STK-MED ONE 12/08 1320 DC .ROUTE Ceftazidime 1,000 MG Q8 12/08 0600 AC 12/08 IV 1350 Ceftazidime 0 .STK-MED ONE 12/08 0552 DC .ROUTE Ceftazidime 0 .STK-MED ONE 12/07 2216 DC .ROUTE Ceftazidime 1,000 MG ONCE ONE 12/07 2145 DC 12/07 IV 12/07 2146 2235 Doxycycline Hyclate 100 MG BID 12/07 2327 AC 12/08 PO 0938 Doxycycline Hyclate 0 .STK-MED ONE 12/07 2213 DC PO Doxycycline Hyclate 100 MG ONCE ONE 12/07 2145 DC 12/07 PO 12/07 2146 2225 Furosemide 60 MG Q48 12/09 1000 AC PO Gabapentin 600 MG Q8H 12/08 0930 AC 12/08 PO 0938 Gabapentin 600 MG Q8 12/07 2328 DC 12/08 PO 0814 Guaifenesin 1,200 MG BID 12/08 1000 AC 12/08 PO 0938 Ipratropium [place] 2.5 ML ONCE ONE 12/07 2115 DC 12/07 INH 12/07 211 2138 Lorazepam 1 MG BID PRN 12/07 2330 AC PO Methylprednisolone 0 .STK-MED ONE 12/07 2216 DC .ROUTE Methylprednisolone 125 MG ONCE ONE 12/07 2145 DC 12/07 IV 12/07 2146 2230 Montelukast Sodium 10 MG DAILY 12/08 1000 AC 12/08 PO 0938 Multivitamins 1 TAB DAILY 12/08 1000 AC 12/08 Therapeutic PO 0938 Nortriptyline HCl 10 MG QPM 12/08 2200 AC PO Omeprazole 0 .STK-MED ONE 12/08 0716 DC PO Omeprazole 20 MG DAILY AC 12/08 0700 AC 12/08 PO 0710 Prednisone 10 MG DAILY 12/14 1000 AC PO 12/15 1001 Prednisone 20 MG DAILY 12/12 1000 AC PO 12/13 1001 Prednisone 30 MG DAILY 12/10 1000 AC PO 12/11 1001 Prednisone 40 MG DAILY 12/08 1000 DC PO Prednisone 40 MG DAILY 12/08 1000 CAN PO 12/16 0959 Prednisone 40 MG DAILY 12/08 1000 AC 12/08 PO 12/09 1001 0938 Rifampin 300 MG DAILY 12/08 1000 AC 12/08 PO 0938 Sodium Chloride 1,000 ML .Q10H 12/07 2345 AC 12/08 IV 0938 Tiotropium [place] 1 PUF DAILY 12/08 1000 AC 12/08 INH 0938 Trazodone HCl 50 MG QPM PRN 12/07 2345 AC PO Last 24 Hrs of Lab/Bryan Results Last 24 Hrs of Labs/Mics: Laboratory Tests 12/08/16 0557: Anion Gap 6, Estimated GFR > 60, BUN/Creatinine Ratio 28.0 H, CBC w Diff NO MAN DIFF REQ, RBC 4.11 L, MCV 90.7, MCH 28.9, RDW 15.9 H, MPV 7.2 L, Gran % 84.6 H, Lymphocytes % 12.0 L, Monocytes % 3.1, Eosinophils % 0.2, Basophils % 0.1, Absolute Granulocytes 12.2 H, Absolute Lymphocytes 1.7, Absolute Monocytes 0.4, Absolute Eosinophils 0, Absolute Basophils 0, PUBS MCHC 31.9 L 12/07/161957: Anion Gap 5, Estimated GFR > 60, BUN/Creatinine Ratio 23.3, Glucose 93, Calcium 9.7, Total Bilirubin 0.5, AST 28, ALT 45, Alkaline Phosphatase 82, Total Protein 6.7, Albumin 3.3 L, Globulin 3.4, Albumin/Globulin Ratio 1.0 L 12/07/161916: CBC w Diff NO MAN DIFF REQ, RBC 4.27 L, MCV 90.3, MCH 28.9, RDW 15.2 H, MPV 7.5, Gran % 75.6 H, Lymphocytes % 16.0 L, Monocytes % 5.6, Eosinophils % 2.7, Basophils % 0.1, Absolute Granulocytes 10.2 H, Absolute Lymphocytes 2.2, Absolute Monocytes 0.8 H, Absolute Eosinophils 0.4, Absolute Basophils 0, PUBS MCHC 32.0 L 12/07/16 1800: Urine Color YEL, Urine Clarity CLEAR, Urine pH 6.0, Ur Specific [place] >= 1.030 , Urine Protein TRACE H, Urine Ketones TRACE H, Urine Nitrite NEG, Urine Bilirubin NEG, Urine Urobilinogen 0.2, Ur Leukocyte Esterase SMALL H, Ur Microscopic SEDIMENT EXAMINED, Urine RBC 1-3, Urine WBC 10-15 H, Ur Epithelial Cells MOD H, Hyaline Casts FEW H, Urine Mucus MOD H, Urine Hemoglobin TRACE- LYSED H, Urine Glucose NEG Microbiology 12/09 727 URINE ROUT: Legionella Antigen - COLB 12/09 727 URINE ROUT: Streptococcus pneumoniae Antigen (M - COLB 12/07 2022 BLOOD: Blood Culture - RES 12/07 1956 BLOOD: Blood Culture - RES 12/07 1934 LOWER RESP: Respiratory Culture - CAN Cancelled: SPECIMEN NOT RECEIVED IN LABORATORY 12/07 1934 LOWER RESP: Gram Stain - CAN Cancelled: SPECIMEN NOT RECEIVED IN LABORATORY 12/07 1799 URINE ROUT: Urine Culture - RES Assessment/Plan Assessment: The pt is 66 year obese male with a history of COPD , bilateral lower extremity edema, HTN, hyperlipidemia, history of atrial fibrillation on Eliquis, asthma, neurogenic bladder, depression, chronic constipation, muscle spasms, JELANI, CAD s/ p stent placement, IVC filter placement, 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 He presented to the ED complaining of urinary leakage, malodorous urine , persistent cough since his last admission for pneumonia, and fever. CAP:CXR shows left lower lobe infiltrate, cough has not resolved since admission and treatment for previous pneumonia. WBC: 13.5. Previously culture positive for psuedomonas * Continue Ceftaz and azithromycin * Follow cultures * Awaiting ID recommendations COPD exacerbation * Continue prednisone taper 40 x 2 days, 30 x 2 days, 20 x 2 days, 10 x 2 days * Pulmonary consult placed with Dr. Bustillos * Azithromycin for antiinflamatory properties * O2 nasal canula as needed * TRC consult * Albuterol * Montelukast 10 mg daily * f/u cbc possible UTI UA significant for UrWBC 10-15, LE small, trace proteins, negative ntirites. Pt has hx of neurogenic bladder with frequent straight catheterizations (3-5 times daily) * consider urine culture if pt spikes fever * bladder this scan q8 if residual volume is 350cc, straight cath. * Follow-up urine cultures. * urology consult with Dr. Polk, cystoscopy if recommended history of muscle spasms * Continue baclofen history of AFIB * Continue eloquis BID chronic lower extremity edema * Continue every other day lasix regimen. Next dose 12/08 history of hyperlipidemia * Continue IM evolocumab every two weeks. Next dose 12/12 Patient does have a history of obstructive sleep apnea however denies use of CPAP adamantly Problem List: 1. COPD (chronic obstructive pulmonary disease) 2. COPD exacerbation Pain Ratin Pain Location: none Pain Goal: Pain 4 or less Pain Plan: n/a Tomorrow's Labs & Rationales: cbc bep DVT/Prophylaxis: eliquis
--- NOTE | 2016-12-08 08:06 | NUR ---
PT AWAKE, ALERT, ORIENTED, NO COMPLAINTS THIS AM. VITALS STABLE, AFEBRILE. BREAKFAST GIVEN.
--- NOTE | 2016-12-08 09:53 | NUR ---
AM MEDS GIVEN ORDERED, TOLERATED VERY WELL. STRAIGHT CATH ON REQUEST FOR 150 YELLOW URINE. PT REQUESTING RESP TX, SPOKE WITH PAWAN, WILL BE DOWN [place], PT UPDATED. CONGESTED COUGH NOTED, NO COMPLAINTS AT THIS TIME.
--- NOTE | 2016-12-08 10:35 | NUR ---
RESP AT BEDSIDE FOR RESP TREATMENT AT THIS TIME.
--- NOTE | 2016-12-08 11:00 | NUR ---
HOUSE STAFF IN TO EVAL.
--- NOTE | 2016-12-08 11:12 | NUR ---
STRAIGHT CATH FOR 150ML DARK YELLOW CLEAR URINE. RESTING COMFORTABLY AT THIS TIME. IV ZITHROMAX COMPLETED TOLERATED VERY WELL. IVF'S NS AT 100ML/HR INFUSING WITHOUT DIFFICULTY AT THIS TIME.
--- NOTE | 2016-12-08 12:03 | PN- Att Addend ---
Attending Addendum Attending Brief Note Patient seen and examined in the emergency room. Plan of care discussed with the medical team and the patient. Available lab work and radiology test reports were reviewed. Patient appears comfortable and pleasant and denies any chest pain fever chills nausea or vomiting. He continues to have a moderate cough with scant sputum production and mild to moderate Difficulty breathing. Vital Signs Date Time Temp Pulse Resp B/P B/P Pulse O2 O2 Flow FiO2 Mean Ox Delivery Rate 12/08 1038 95 Nasal 2.0L Cannula 12/08 0806 98.1 90 20 177/77 99 Nasal 2.0L Cannula 12/08 0550 97.2 95 17 178/83 95 Nasal 2.0L Cannula 12/08 0149 97.8 95 16 177/77 94 Nasal 2.0L Cannula 12/07 2249 97.7 106 20 153/67 96 Nasal 2.0L Cannula 12/07 2143 96 Nasal 2.0L Cannula 12/07 2058 98.9 104 20 177/81 98 Nasal 2.0L Cannula 12/07 1742 97.9 100 18 148/69 98 Nasal 2.0L Cannula Intake & Output 12/08 1600 12/08 0800 12/08 0000 Intake Total 250 Output Total 300 225 Balance -50 -225 Intake, IV 250 Output, Urine 300 225 Patient 252 lb Weight Weight Bed scale Measurement Method Exam: General: Patient awake alert oriented without any distress CVS: S1 plus S2 without any murmur or gallops Chest: Few scattered crepitation with expiratory prolongation and mild wheeze. There is no respiratory distress. Abdomen: Soft nontender, bowel sound present, no guarding or rebound [employer] CLERK: Awake alert oriented with paraparesis follows command appropriately Extremities: No edema; no clubbing or cyanosis noted Laboratory Tests 12/08 12/07 0557 1958 Chemistry Sodium (137 - 145 mmol/L) 139 134 L Potassium (3.5 - 5.1 mmol/L) 4.6 4.2 Chloride (98 - 107 mmol/L) 99 96 L Carbon Dioxide (22 - 30 mmol/L) 34 H 33 H Anion Gap (5 - 16) 6 5 BUN (9 - 20 mg/dL) 14 14 Creatinine (0.7 - 1.2 mg/dL) 0.5 L 0.6 L Estimated GFR (>60 ml/min) > 60 > 60 BUN/Creatinine Ratio (7 - 25 %) 28.0 H 23.3 Glucose (65 - 99 mg/dL) 93 Calcium (8.4 - 10.2 mg/dL) 9.7 Total Bilirubin (0.2 - 1.3 mg/dL) 0.5 AST (17 - 59 U/L) 28 ALT (21 - 72 U/L) 45 Alkaline Phosphatase (< 127 U/L) 82 Total Protein (6.3 - 8.2 g/dL) 6.7 Albumin (3.5 - 5.0 g/dL) 3.3 L Globulin (1.9 - 4.2 gm/dL) 3.4 Albumin/Globulin Ratio (1.1 - 2.2 %) 1.0 L Hematology CBC w Diff NO MAN DIFF REQ WBC (4.8 - 10.8 /CUMM) 14.4 H RBC (4.70 - 6.10 /CUMM) 4.11 L Hgb (14.0 - 18.0 G/DL) 11.9 L Hct (42 - 52 %) 37.3 L MCV (80.0 - 94.0 FL) 90.7 MCH (27.0 - 31.0 PG) 28.9 RDW (11.5 - 14.5 %) 15.9 H Plt Count (130 - 400 /CUMM) 382 MPV (7.4 - 10.4 FL) 7.2 L Gran % (42.2 - 75.2 %) 84.6 H Lymphocytes % (20.5 - 51.1 %) 12.0 L Monocytes % (1.7 - 9.3 %) 3.1 Eosinophils % (0 - 5 %) 0.2 Basophils % (0.0 - 2.0 %) 0.1 Absolute Granulocytes (1.4 - 6.5 /CUMM) 12.2 H Absolute Lymphocytes (1.2 - 3.4 /CUMM) 1.7 Absolute Monocytes (0.10 - 0.60 /CUMM) 0.4 Absolute Eosinophils (0.0 - 0.7 /CUMM) 0 Absolute Basophils (0.0 - 0.2 /CUMM) 0 PUBS MCHC (33.0 - 37.0 G/DL) 31.9 L 12/07 12/07 1917 1800 Hematology CBC w Diff NO MAN DIFF REQ WBC (4.8 - 10.8 /CUMM) 13.5 H RBC (4.70 - 6.10 /CUMM) 4.27 L Hgb (14.0 - 18.0 G/DL) 12.3 L Hct (42 - 52 %) 38.5 L MCV (80.0 - 94.0 FL) 90.3 MCH (27.0 - 31.0 PG) 28.9 RDW (11.5 - 14.5 %) 15.2 H Plt Count (130 - 400 /CUMM) 382 MPV (7.4 - 10.4 FL) 7.5 Gran % (42.2 - 75.2 %) 75.6 H Lymphocytes % (20.5 - 51.1 %) 16.0 L Monocytes % (1.7 - 9.3 %) 5.6 Eosinophils % (0 - 5 %) 2.7 Basophils % (0.0 - 2.0 %) 0.1 Absolute Granulocytes (1.4 - 6.5 /CUMM) 10.2 H Absolute Lymphocytes (1.2 - 3.4 /CUMM) 2.2 Absolute Monocytes (0.10 - 0.60 /CUMM) 0.8 H Absolute Eosinophils (0.0 - 0.7 /CUMM) 0.4 Absolute Basophils (0.0 - 0.2 /CUMM) 0 PUBS MCHC (33.0 - 37.0 G/DL) 32.0 L Urines Urine Color (YEL,AMB,STR) YEL Urine Clarity (CLEAR) CLEAR Urine pH (5.0 - 8.0) 6.0 Ur Specific [place] (1.001 - 1.035) >= 1.030 Urine Protein (NEG,<30 MG/DL) TRACE H Urine Ketones (NEG) TRACE H Urine Nitrite (NEG) NEG Urine Bilirubin (NEG) NEG Urine Urobilinogen (0.1 - 1.0 EU/dl) 0.2 Ur Leukocyte Esterase (NEG) SMALL H Ur Microscopic SEDIMENT EXAMINED Urine RBC (0 - 5 /HPF) 1-3 Urine WBC (0 - 2 /HPF) 10-15 H Ur Epithelial Cells (NONE,FEW) MOD H Hyaline Casts (0/LPF) FEW H Urine Mucus (FEW,NONE) MOD H Urine Hemoglobin (NEG) TRACE-LYSED H Urine Glucose (N MG/DL) NEG Microbiology Date/Time Procedure - Status Source Growth 07/19 0728 Legionella Antigen - COLB URINE ROUT 12/08 07 Streptococcus pneumoniae Antigen (M - COLB URINE ROUT 12/07 2022 Blood Culture - RECD BLOOD 12/07 1956 Blood Culture - RECD BLOOD 12/07 1934 Respiratory Culture - ORD LOWER RESP 12/07 1934 Gram Stain - ORD LOWER RESP 12/07 1800 Urine Culture - RES URINE ROUT Chest x-ray Retrocardiac opacification and obscuration of the left hemidiaphragm suspicious for a left lower lobe infiltrate. Recommendation is for a followup chest series to be obtained following treatment and/or resolution of symptoms to assure resolution of this appearance. Assessment * Community acquired pneumonia * COPD exacerbation * Hypoxia * Paraparesis * Neurogenic bladder * History of atrial fibrillation * His hyperlipidemia * History of spinal abscess currently on chronic suppressive therapy Plan * Continue Ceftaz and azithromycin * Continue prednisone taper * Await culture reports * Pulmonary consult * Continue straight cath protocol *
--- NOTE | 2016-12-08 12:54 | NUR ---
PT STRAIGHT CATHED PER HIS REQUEST. 150ML URINE OUT.
--- NOTE | 2016-12-08 13:46 | NUR ---
PT REQUESTING DUCOLAX SUPP "IT'S HARD FOR ME TO GO, SO I USE THE SUPPOSITORIES". SPOKE WITH DR VERN ROSAS, WILL ORDER REQUESTED MED.
--- NOTE | 2016-12-08 14:26 | NUR ---
MED WITH DUCOLAX SUPP, TOLERATED WELL.
--- NOTE | 2016-12-08 14:32 | NUR ---
LARGE FORMED BROWN STOOL NOTED, SKIN AND PERICARE GIVEN, PT STATING "I FEEL SO MUCH BETTER NOW".
--- NOTE | 2016-12-08 15:39 | NUR ---
RT CALLED FOR PRN ALBUTEROL NEB.
--- NOTE | 2016-12-08 17:03 | NUR ---
PT REQUESTING STRAIGHT CATH. 200ML OBTAINED AT THIS TIME. BED CHANGED AND PERICARE PROVIDED FOR URINARY LEAKING PT REPORTS "THIS IS NORMAL." PT PROVIDED WITH DINNER TRAY AND REPOSITIONED FOR COMFORT. OFFERS NO COMPLAINTS AT THIS TIME. CALL LARSEN WITHIN REACH, NURSING WILL CONTINUE TO MONITOR.
--- NOTE | 2016-12-08 20:30 | NUR ---
PATIENT ASSIGNED [phone]
--- NOTE | 2016-12-08 20:37 | NUR ---
PT ASSIGNED ROOM [id number]
--- NOTE | 2016-12-08 20:45 | NUR ---
PER FLOOR BED IS NOT CLEAN AND RN WILL CALL FOR REPORT WHEN ROOM IS READY.
--- NOTE | 2016-12-08 21:06 | Cons- Infect Disease ---
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 Polk, his urologist. He c/o urinary leakage. The pt uses a straight catheter, and has never experienced leakage between catheterizations before. The pt also reports that recently his urine has been malodorous. He denies any pain or discomfort with urination. He reported that several weeks ago he had penile discharge which has since resolved. Has chronic dry productive cough since September 2016. Allergies/Medications Allergies: Coded Allergies: heparin (SWELLING 12/07/16) vancomycin (HIVES, SKIN CRACKES, TURNS RED, SWELLS AND PEELS 12/07/16) Home Med List: Albuterol Sulfate 2.5 MG/3 ML (0.083 %) VIAL.NEB 1 Vial INH/MATT Q4P PRN SHORTNESS OF BREATH (Reported) Albuterol Sulfate (Ventolin Hfa) 90 MCG HFA.AER.AD 2 PUF INH AD PRN COPD ( Reported) Apixaban (Eliquis) 5 MG TABLET 5 MG PO BID atrial fibrillation Ascorbate Calcium (Vitamin C) 500 MG TABLET 1 TAB PO BID SUPPLEMENT (Reported ) Atomoxetine HCl (Strattera) 40 MG CAPSULE 1 CAP PO QAM MENTAL HEALTH ( Reported) Baclofen 20 MG TABLET 1 TAB PO BID MUSCLE RELAXER (Reported) Bisacodyl (Dulcolax) 10 MG SUPP.RECT 1 SUP RC EOD GI (Reported) Budesonide/Formoterol Fumarate (Symbicort 80-4.5 Mcg Inhaler) 80 MCG-4.5 MCG/ ACTUATION HFA.AER.AD 2 PUF INH BID COPD Cannabis (Marijuana Oil) (Unknown Strength) AMP (Unknown Dose) INH DAILY PAIN (Reported) Doxycycline Hyclate 100 MG CAPSULE 1 CAP PO BID infection (Reported) Evolocumab (Repatha Sureclick) 140 MG/ML PEN.INJCTR 1 ML SC Q2W CHOLESTEROL ( Reported) Furosemide 20 MG TABLET 3 TAB PO Q48 DIURETIC (Reported) Gabapentin 600 MG TABLET 1 TAB PO TID NEUROPATHY (Reported) Guaifenesin (Mucinex) 600 MG TAB.ER.12H 2 TAB PO BID MUCUS (Reported) Lactobacillus Acidophilus (Acidophilus) 1 EACH CAPSULE 1 CAP PO BID PROBIOTIC (Reported) Lorazepam (Ativan) 1 MG TABLET 1 TAB PO BID PRN ANXIETY (Reported) Magnesium Oxide (Magnesium) 400 MG CAPSULE 1 CAP PO 0600 SUPPLEMENT (Reported ) Metoprolol Tartrate 25 MG TABLET 12.5 MG PO BID heart rate Montelukast Sodium (Singulair) 10 MG TABLET 1 TAB PO DAILY ASTHMA (Reported) Multivitamin (Multi-Day Vitamins) 1 EACH TABLET 1 TAB PO DAILY SUPPLEMENT ( Reported) Nortriptyline HCl 10 MG CAPSULE 1 CAP PO QPM MENTAL HEALTH (Reported) Omeprazole 20 MG CAPSULE.DR 1 CAP PO DAILY GI (Reported) Oxycodone HCl/Acetaminophen (Oxycodone-Acetaminophen 5-325) 5 MG-325 MG TABLET 1-2 TAB PO Q4H PRN PAIN (Reported) Pantoprazole Sodium (Protonix) 40 MG TABLET.DR 1 TAB PO DAILY ACID REFLUX ( Reported) Potassium Chloride 20 MEQ TAB.ER.PRT 1 TAB PO DAILY SUPPLEMENT (Reported) Rifampin (Rifadin) 300 MG CAPSULE 1 CAP PO BID MRSA PROPHYLAXIS (Reported) Sotalol (Betapace) 80 MG TABLET 80 MG PO BID AARYTHMIAS Tiotropium [place] (Spiriva) 18 MCG CAP.W.DEV 1 CAP INH DAILY BREATHING ( Reported) Trazodone HCl 50 MG TABLET 1 TAB PO QPM PRN SLEEP (Reported) Umeclidinium [place] (Incruse Ellipta) (Unknown Strength) BLST.W.DEV (Unknown Dose) UNKNOWN (Reported) Current Medications: Current Medications Sig/Danni Start time Last Medication Dose Route Stop Time Status Admin Albuterol Sulfate 3 ML EVERY 4 HRS/AWAKE 12/08 1600 AC 12/08 INH 2041 Albuterol Sulfate 2 PUF Q6P PRN 12/07 2330 AC 12/08 INH 1430 Albuterol Sulfate 3 ML Q4P PRN 12/07 2330 AC 12/08 INH 1028 Albuterol Sulfate 3 ML ONCE ONE 12/07 2115 DC 12/07 INH 12/08 2115 2138 Apixaban 5 MG BID 12/07 2325 AC 12/08 PO 0938 Azithromycin 500 MG DAILY 12/08 1000 AC 12/08 Sodium Chloride 250 ML IV 0938 Baclofen 20 MG BID 12/07 2327 AC 12/08 PO 0938 Bisacodyl 0 .STK-MED ONE 12/08 1425 DC NE Bisacodyl 10 MG DAILY PRN 12/08 1400 AC 12/08 NE 1425 Cefazolin Sodium 1,000 MG ONCE ONE 12/07 2145 CAN IV 12/07 2146 Ceftazidime 0 .STK-MED ONE 12/08 1320 DC .ROUTE Ceftazidime 1,000 MG Q8 12/08 0600 AC 12/08 IV 1350 Ceftazidime 0 .STK-MED ONE 12/08 0552 DC .ROUTE Ceftazidime 0 .STK-MED ONE 12/07 2216 DC .ROUTE Ceftazidime 1,000 MG ONCE ONE 12/07 2145 DC 12/07 IV 12/07 2146 2235 Doxycycline Hyclate 100 MG BID 12/07 2327 AC 12/08 PO 0938 Doxycycline Hyclate 0 .STK-MED ONE 12/07 2213 DC PO Doxycycline Hyclate 100 MG ONCE ONE 12/07 2145 DC 12/07 PO 12/07 2146 2225 Furosemide 60 MG Q48 12/09 1000 AC PO Gabapentin 600 MG Q8H 12/08 0930 AC 12/08 PO 2043 Gabapentin 600 MG Q8 12/07 2328 DC 12/08 PO 0814 Guaifenesin 1,200 MG BID 12/08 1000 AC 12/08 PO 0938 Ipratropium [place] 2.5 ML ONCE ONE 12/07 2115 DC 12/07 INH 12/08 2115 2138 Lorazepam 1 MG BID PRN 12/07 2330 AC PO Methylprednisolone 0 .STK-MED ONE 12/07 2216 DC .ROUTE Methylprednisolone 125 MG ONCE ONE 12/07 2145 DC 12/07 IV 12/07 2146 2230 Montelukast Sodium 10 MG DAILY 12/08 1000 AC 12/08 PO 0938 Multivitamins 1 TAB DAILY 12/08 1000 AC 12/08 Therapeutic PO 0938 Nortriptyline HCl 10 MG QPM 12/08 2200 AC PO Omeprazole 0 .STK-MED ONE 12/08 0716 DC PO Omeprazole 20 MG DAILY AC 12/08 0700 AC 12/08 PO 0710 Prednisone 10 MG DAILY 12/14 1000 AC PO 12/15 1001 Prednisone 20 MG DAILY 12/12 1000 AC PO 12/13 1001 Prednisone 30 MG DAILY 12/10 1000 AC PO 12/11 1001 Prednisone 40 MG DAILY 12/08 1000 DC PO Prednisone 40 MG DAILY 12/08 1000 CAN PO 12/16 0959 Prednisone 40 MG DAILY 12/08 1000 AC 12/08 PO 12/09 1001 0938 Rifampin 300 MG DAILY 12/08 1000 AC 12/08 PO 0938 Sodium Chloride 1,000 ML .Q10H 12/07 2345 AC 12/08 IV 2043 Tiotropium [place] 1 PUF DAILY 12/08 1000 AC 12/08 INH 0938 Trazodone HCl 50 MG QPM PRN 12/07 2345 AC PO Past History Travel History Traveled to [place] past 21 day No Medical History Neurological: C6-7 ABSCESS EENT: NONE Cardiovascular: AFIB, hypertension, hyperlipidemia, myocardial infarction Respiratory: asthma, COPD, OXYGEN DEPEND 2L Gastrointestinal: NONE Hepatic: NONE Renal: neurogenic bladder Musculoskeletal: PARAPLEGIA R/T ABSCESS Psychiatric: NONE Endocrine: NONE Blood Disorders: NONE Cancer(s): NONE ENGLISH ADJUNCT FACULTY/Reproductive: NONE History of MRSA: Yes History of VRE: No History of CDIFF: No Isolation History: Contact Influenza Vaccine: 02/21/16 Surgical History Surgical History: non-contributory Family History Relations & Conditions If Any: Relation not specified for: *No pertinent family history Psychosocial History Where Do You Live? Home Who Do You Live With? partner Services at Home: Home Health Aide, TAX ADJUSTER MORNING & EVENING Primary Language: Ukrainian Smoking Status: Former Smoker ETOH Use: denies use Illicit Drug Use: marijuana Functional Ability ADLs Needs Assist: dressing, eating, toileting, bathing. Ambulation: wheelchair IADLs Independent: shopping, housework, finances, food prep, telephone, transportation , medication admin. Review of Systems Comments 12 points reviewed as noted, otherwise negative. Pt reports having fever, chills, night sweats and denies SOB, chest pain, and dyspnea. Exam & Diagnostic Data Last 24 Hrs of Vital Signs/I&O Vital Signs Date Time Temp Pulse Resp B/P B/P Pulse O2 O2 Flow FiO2 Mean Ox Delivery Rate 07/19 2042 94 Nasal 2.0L Cannula 12/08 1705 98.5 89 18 173/76 97 Room Air Room Air 12/08 1535 Nasal 2.0L Cannula 12/08 1038 95 Nasal 2.0L Cannula 12/08 0806 98.1 90 20 177/77 99 Nasal 2.0L Cannula 12/08 0550 97.2 95 17 178/83 95 Nasal 2.0L Cannula 12/08 0149 97.8 95 16 177/77 94 Nasal 2.0L Cannula 12/07 2249 97.7 106 20 153/67 96 Nasal 2.0L Cannula 12/07 2143 96 Nasal 2.0L Cannula 12/07 2058 98.9 104 20 177/81 98 Nasal 2.0L Cannula Intake & Output 12/08 1600 12/08 0800 12/08 0000 Intake Total 250 Output Total 450 225 Balance -200 -225 Intake, IV 250 Output, Urine 450 225 Patient 252 lb Weight Weight Bed scale Measurement Method Physical Exam Other Physical Findings: General Appearance Alert, Oriented X3, Cooperative, No Acute Distress Skin No Rashes, No Breakdown, No Significant Lesion Skin Temp/Moisture Exam: Warm/Dry Sepsis Skin Exam (color): Normal for Ethnicity HEENT Atraumatic, PERRLA, EOMI, Mucous Membr. moist/pink Neck Supple, No JVD, +2 Carotid Pulse wo Bruit Lymphatic Cervical nl Cardiovascular Regular Rate, Normal S1, Normal S2, No Murmurs Lungs B/L expiratory wheezing Abdomen Normal Bowel Sounds, Soft, No Hepatospenomegaly, No Masses, mild TTP Neurological Normal Speech, Cranial Nerves 3-12 NL Extremities trace edema of the lower extremities B/L Vascular Normal Pulses, Pulses Symmetrical Last 24 Hours of Lab Results: Laboratory Tests 12/08 0557 Chemistry Sodium (137 - 145 mmol/L) 139 Potassium (3.5 - 5.1 mmol/L) 4.6 Chloride (98 - 107 mmol/L) 99 Carbon Dioxide (22 - 30 mmol/L) 34 H Anion Gap (5 - 16) 6 BUN (9 - 20 mg/dL) 14 Creatinine (0.7 - 1.2 mg/dL) 0.5 L Estimated GFR (>60 ml/min) > 60 BUN/Creatinine Ratio (7 - 25 %) 28.0 H Hematology CBC w Diff NO MAN DIFF REQ WBC (4.8 - 10.8 /CUMM) 14.4 H RBC (4.70 - 6.10 /CUMM) 4.11 L Hgb (14.0 - 18.0 G/DL) 11.9 L Hct (42 - 52 %) 37.3 L MCV (80.0 - 94.0 FL) 90.7 MCH (27.0 - 31.0 PG) 28.9 RDW (11.5 - 14.5 %) 15.9 H Plt Count (130 - 400 /CUMM) 382 MPV (7.4 - 10.4 FL) 7.2 L Gran % (42.2 - 75.2 %) 84.6 H Lymphocytes % (20.5 - 51.1 %) 12.0 L Monocytes % (1.7 - 9.3 %) 3.1 Eosinophils % (0 - 5 %) 0.2 Basophils % (0.0 - 2.0 %) 0.1 Absolute Granulocytes (1.4 - 6.5 /CUMM) 12.2 H Absolute Lymphocytes (1.2 - 3.4 /CUMM) 1.7 Absolute Monocytes (0.10 - 0.60 /CUMM) 0.4 Absolute Eosinophils (0.0 - 0.7 /CUMM) 0 Absolute Basophils (0.0 - 0.2 /CUMM) 0 PUBS MCHC (33.0 - 37.0 G/DL) 31.9 L Last 24 Hours of Bryan Results: SPEC #: [id number] NATAN: 12/08/16 STATUS: COLB RECD: - SUBM DR: JIM VOGEL,LUI SOURCE: URINE ROUT ENTR: 12/08/[address]: JOHN VOGEL, PONCHO SPDESC: KAREN SMALL MD,LALA Gray ORDERED: SPN URINE AG COMMENT: Has patient received Pneumovax in past 5 days? N Procedure Result SPN URINE AG PENDING RECEIPT Diagnostic Data Recent Imaging Findings: SERVICE DATE: 12/07/16 EXAM TYPE: RAD - XRY-CHEST XRAY, PA AND LATERAL EXAMINATION: CHEST 2 VIEWS CLINICAL INFORMATION: Cough, shortness of breath. COMPARISON: 10/11/2016. TECHNIQUE: PA and lateral views of the chest were obtained. FINDINGS: The cardiac silhouette is not enlarged. The mediastinal and hilar contours are unremarkable. There is obscuration of the left hemidiaphragm and faint retrocardiac opacification. The osseous structures are unremarkable. IMPRESSION: Retrocardiac opacification and obscuration of the left hemidiaphragm suspicious for a left lower lobe infiltrate. Recommendation is for a followup chest series to be obtained following treatment and/or resolution of symptoms to assure resolution of this appearance. DICTATED BY: GURMEET LOPEZ MD DATE/TIME DICTATED:12/07/161999 AUTOMATIC PROFILE SHAPER OPERATOR:PAULO DATE/TIME TRANSCRIBED:12/07/161999 CONFIDENTIAL, DO NOT COPY WITHOUT APPROPRIATE AUTHORIZATION. <Electronically signed in Other Vendor System> SIGNED BY: GURMEET LOPEZ MD 12/07/162004 Assessment/Plan Assessment/Plan Impression: 66 year obese male with a history of COPD (O2 2L at home), bilateral lower extremity edema, muscle spasms, JELANI, HTN, hyperlipidemia, atrial fibrillation on Eliquis, asthma, h/o UTI's, neurogenic bladder, depression, chronic constipation , CAD s/p stent placement, IVC filter placement,paraplegia secondary to T6-7 spinal MRSA abscess on suppressive antibiotic regimen with rifampin and doxycycline admitted with: COPD exacerbation; eval LLL pneumonia; h/o Ps.aeruginosa (pansensitive) lung infection; clinically improved since admission R/O UTI Leukocytosis Suggestion: 1. F/u culture results to further guide antibiotic treatment; currently treated empirically with iv Ceftazidime (dose 1 gm q 8 h). 2. Cont suppressive abx treatment with rifampin/doxycycline (to review old MR). 3. Trend CBC, BMP, LFT's. ESR/CRP in am. Consult Acknowledgment - Thank you for your consult request.
--- NOTE | 2016-12-08 21:36 | NUR ---
ZUNILDA TITUS TO CALL BACK FOR REPORT.
--- NOTE | 2016-12-08 21:42 | NUR ---
PER MOD DR. ANDREW BETANCOURT CAN BE REACHED AT 158 OR [address] RAMÍREZ CANTOR CAN BE REACHED AT 033 REGARDING PT CARE OVERNIGHT. PT REQUEST FOR HOME MEDICATION SUBCUTANEOUS REPATHA FOR HIGH CHOLESTEROL DISCUSSED WITH MOD AND PLAN FOR PT FAMILY TO BRING IT IN TO BE CHECKED BY PHARMACY WAS CLEARED BY MOD. PROPERTY COORDINATOR VERN WILL ASSUME CARE OF PATIENT AT 0730 AND CAN BE REACHED AT 136.
--- NOTE | 2016-12-08 22:04 | NUR ---
REPORT GIVEN TO ZUNILDA TITUS. TRANSPORT BOOKED, PHARMACY CALLED FOR 2200 MEDS.
--- NOTE | 2016-12-08 23:27 | NUR ---
PT ARRIVED FROM ER VIA STRETCHER, A&OX3, BLE PARALYSIS, SKIN INTACT, RT FOOT EDEMA. STRAIGHT CATHED PER PT REQUEST FOR 300ML CLEAR YELLOW URINE. BP 161/97, P 136, 97% ON 2L NC. RESERVOIR ENGINEERING MANAGER MAP COLORER, RAMÍREZ CANTOR, NOTIFIED. AWAITING NEW ORDERS. WILL MONITOR.
[2016-12-08 23:40] VITALS: BP 161/97
[2016-12-08 23:53] VITALS: BP 144/79
[2016-12-09 01:29] VITALS: BP 146/82
--- NOTE | 2016-12-09 05:09 | Event Note ---
See Addendum Event Note Event Note: S: received a call from nurse at 23:25 that pt's BP was 162/97 and p was 136 B: pt is a 66 yo male admitted for pnuemonia and COPD. Pt has been hypertensive for the duration of his admission AR I went to assess, the pt. Upon retaking the vitals his bp dropped to 140/79 with a pulse of 140. The pt was in no acute distress, and asymptomatic. He denied headache, chest pain, palpitations, changes in vision, SOB, or diaphoresis. After discussing with my resident Dr. Cabrera we ordered a one time dose of metoprolol 12.5 mg, which is his home medication. Since he has respiratory issues, we watched for respiratory distress after giving beta fili, and did not record any. Patient was asymptomatic all this time. Update: at 01:29 BP 146/82, pulse 90 will discuss BP control with AM team
--- NOTE | 2016-12-09 07:45 | PN- Housestaff ---
Subjective Follow-up For: COPD exacerbation. CAP Subjective: I have seen and examined the patient. The patient was lying comfortably in the bed. The patient has been afebrile. The patient states his symptoms are improving. He denies any chest pain fever or palpitations. He continues to have a moderate cough with scant sputum production and mild to moderate difficulty breathing. Patient has been requiring straight cath more frequently overnight and in the morning Dr. Polk was resting him while we were rounding the attending Review of Systems Constitutional: Denies: chills, diaphoresis, fever. EENTM: Reports: no symptoms. Cardiovascular: Denies: chest pain, edema, orthopena. Respiratory: Reports: cough, short of breath, sputum production. Gastrointestinal: Reports: no symptoms. Genitourinary: Reports: no symptoms. Objective Last 24 Hrs of Vital Signs/I&O Vital Signs Date Time Temp Pulse Resp B/P B/P Pulse O2 O2 Flow FiO2 Mean Ox Delivery Rate 12/09 1435 80 142/80 12/09 1430 98.3 80 20 142/80 93 Nasal 2.0L Cannula 12/09 1134 97 Nasal 2.0L Cannula 12/09 0800 94 Nasal 2.0L Cannula 12/09 0752 97.6 83 20 154/77 96 Nasal Cannula 12/09 0645 96 Nasal 2.0L Cannula 12/09 0129 99.3 90 20 146/82 95 Nasal 2.0L Cannula 12/09 0005 140 144/79 12/08 2353 140 28 144/79 12/08 2340 98.0 140 21 161/97 98 12/08 2304 97 Nasal 2.0L Cannula 12/08 2210 99.0 104 18 145/73 97 Nasal 2.0L Cannula 12/08 2042 94 Nasal 2.0L Cannula 12/08 1705 98.5 89 18 173/76 97 Nasal 2.0L Cannula Intake & Output 12/09 1600 12/09 0800 12/09 0000 Intake Total 1800 800 Output Total 3400 1125 700 Balance -1600 -325 -700 Intake, IV 800 800 Intake, Oral 1000 Number 0 Bowel Movements Output, Urine 3400 1125 700 Patient 233 lb Weight Weight Reported by Patient Measurement Method Physical Exam General Appearance: Alert, Oriented X3, Cooperative Skin: No Rashes, No Breakdown HEENT: Atraumatic Neck: Supple Cardiovascular: Regular Rate, Normal S1, Normal S2 Lungs: Clear to Auscultation, Normal Air Movement Abdomen: Normal Bowel Sounds, Soft, No Tenderness Neurological: Normal Speech Extremities: No Tenderness/Swelling Current Medications: Current Medications Sig/Danni Start time Last Medication Dose Route Stop Time Status Admin Albuterol Sulfate 3 ML EVERY 4 HRS/AWAKE 12/08 1600 AC 12/09 INH 1131 Albuterol Sulfate 2 PUF Q6P PRN 12/07 2330 AC 12/09 INH 1036 Albuterol Sulfate 3 ML Q4P PRN 12/07 2330 AC 12/08 INH 1028 Apixaban 5 MG BID 12/07 2325 AC 12/09 PO 0951 Azithromycin 500 MG DAILY 12/08 1000 AC 12/09 Sodium Chloride 250 ML IV 0948 Baclofen 20 MG BID 12/07 2327 AC 12/09 PO 0951 Bisacodyl 10 MG DAILY PRN 12/08 1400 AC 12/08 DE 1425 Ceftazidime 0 .STK-MED ONE 12/08 2224 DC .ROUTE Ceftazidime 1,000 MG Q8 12/08 0600 AC 12/09 IV 1326 Doxycycline Hyclate 100 MG BID 12/07 2327 AC 12/09 PO 0950 Furosemide 60 MG Q48 12/09 1000 AC 12/09 PO 1034 Gabapentin 600 MG Q8H 12/08 0930 AC 12/09 PO 0951 Guaifenesin 1,200 MG BID 12/08 1000 AC 12/09 PO 0951 Lorazepam 1 MG BID PRN 12/07 2330 AC PO Metoprolol Tartrate 12.5 MG BID 12/09 1200 AC 12/09 PO 1435 Metoprolol Tartrate 12.5 MG BID 12/09 1000 DC PO Metoprolol Tartrate 12.5 MG ONCE ONE 12/08 2345 DC 12/09 PO 12/08 2346 0005 Montelukast Sodium 10 MG DAILY 12/08 1000 AC 12/09 PO 0951 Multivitamins 1 TAB DAILY 12/08 1000 AC 12/09 Therapeutic PO 0950 Nortriptyline HCl 10 MG QPM 12/08 2200 AC 12/08 PO 2214 Omeprazole 20 MG DAILY AC 12/08 0700 AC 12/09 PO 0713 Prednisone 10 MG DAILY 12/14 1000 AC PO 12/15 1001 Prednisone 20 MG DAILY 12/12 1000 AC PO 12/13 1001 Prednisone 30 MG DAILY 12/10 1000 AC PO 12/11 1001 Prednisone 40 MG DAILY 12/08 1000 DC 12/09 PO 12/09 1001 0951 Rifampin 300 MG DAILY 12/08 1000 AC 12/09 PO 0951 Sodium Chloride 1,000 ML .Q10H 12/07 2345 DC 12/09 IV 0752 Sotalol HCl 80 MG BID 12/09 1000 AC 12/09 PO 1034 Tiotropium [place] 1 PUF DAILY 12/08 1000 AC 12/09 INH 0953 Trazodone HCl 50 MG .STK-MED ONE 12/09 0212 DC PO 12/09 0213 Trazodone HCl 50 MG QPM PRN 12/07 2345 AC 12/09 PO 0211 Last 24 Hrs of Lab/Bryan Results Last 24 Hrs of Labs/Mics: Laboratory Tests 12/09/16719: Anion Gap 4 L, Estimated GFR > 60, BUN/Creatinine Ratio 22.0, Total Bilirubin 0.4, Direct Bilirubin 0.4, AST 35, ALT 53, Alkaline Phosphatase 71, C-Reactive Prot, Quant 4.8 H, C-React Prot High Sens > 15.0 H, Total Protein 6.0 L, Albumin 2.9 L, CBC w Diff NO MAN DIFF REQ, RBC 3.83 L, MCV 89.9, MCH 29.5, RDW 15.7 H, MPV 7.8, Gran % 74.9, Lymphocytes % 16.2 L, Monocytes % 6.5, Eosinophils % 2.1, Basophils % 0.3, Absolute Granulocytes 9.7 H, Absolute Lymphocytes 2.1, Absolute Monocytes 0.8 H, Absolute Eosinophils 0.3, Absolute Basophils 0, PUBS MCHC 32.8 L, ESR Westergren 55 H Microbiology 12/09 914 URINE ROUT: Urine Culture - RECD 12/09 14 URINE ROUT: Legionella Antigen - COMP 12/09 14 URINE ROUT: Streptococcus pneumoniae Antigen (M - COMP Assessment/Plan Assessment: The pt is 66 year obese male with a history of COPD , bilateral lower extremity edema, HTN, hyperlipidemia, history of atrial fibrillation on Eliquis, asthma, neurogenic bladder, depression, chronic constipation, muscle spasms, JELANI, CAD s/ p stent placement, IVC filter placement, 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 He presented to the ED complaining of urinary leakage, malodorous urine , persistent cough since his last admission for pneumonia, and fever. CAP:CXR shows left lower lobe infiltrate, cough has not resolved since admission and treatment for previous pneumonia. WBC:12.9. Previously culture positive for psuedomonas * Continue Ceftaz and azithromycin as per ID recommendations * Follow cultures no growth after 1 day * Urine strep and Legionella negative COPD exacerbation * Continue prednisone taper 40 x 2 days, 30 x 2 days, 20 x 2 days, 10 x 2 days * Pulmonary consult placed with Dr. Bustillos, CT recommended but given clinical improvement, patient being afebrile , and decreased white cell count, it will be of limited diagnostic value * Azithromycin for antinflamatory properties * O2 nasal canula as needed * TRC consult * Albuterol * Montelukast 10 mg daily * f/u cbc possible UTI UA significant for UrWBC 10-15, LE small, trace proteins, negative ntirites. Pt has hx of neurogenic bladder with frequent straight catheterizations (3-5 times daily) * Follow-up urine cultures. * Being followed by Dr. Polk HTN patient's heart rate and blood pressure has been towards the higher side overnight. We have started hypertensive medication * Metoprolol 12.5mg BID * Sotalol 80 mg BID * Continue Lasix 50 MG Q4 Paraplegia secondary to spinal MRSA abscess Cont suppressive abx treatment with rifampin/doxycycline history of muscle spasms * Continue baclofen history of AFIB * Continue eloquis BID chronic lower extremity edema * Continue every other day lasix regimen. Next dose 12/08 history of hyperlipidemia * Continue IM evolocumab every two weeks. Next dose 12/12 Patient does have a history of obstructive sleep apnea however denies use of CPAP adamantly Problem List: 1. Paraplegia 2. Hypertension 3. COPD exacerbation 4. Pneumonia Pain Ratin Pain Location: NONE Pain Goal: Pain 4 or less Pain Plan: N/A Tomorrow's Labs & Rationales: CBC DVT/Prophylaxis: PIO Consulting Request: Consulting Specialty: Urology
[2016-12-09 07:52] VITALS: BP 154/77
[2016-12-09 08:40] LABS: ABSOLUTE BASOPHIL COUNT 0 /CUMM (0.0-0.2); ABSOLUTE EOSINOPHIL COUNT 0.3 /CUMM (0.0-0.7); ABSOLUTE GRANULOCYTE CT 9.7 /CUMM (1.4-6.5); ABSOLUTE LYMPH COUNT 2.1 /CUMM (1.2-3.4); ABSOLUTE MONOCYTE COUNT 0.8 /CUMM (0.10-0.60); BASOPHIL % 0.3 % (0.0-2.0); EOSINOPHIL % 2.1 % (0-5); GRANULOCYTE % 74.9 % (42.2-75.2); HEMATOCRIT 34.4 % (42-52); MEAN CORPUSCULAR HGB 29.5 PG (27.0-31.0); MEAN CORPUSCULAR HGB CONC 32.8 G/DL (33.0-37.0); MEAN CORPUSCULAR VOLUME 89.9 FL (80.0-94.0); MEAN PLATELET VOLUME 7.8 FL (7.4-10.4); PLATELET COUNT 340 /CUMM (130-400); RBC DISTRIBUTION WIDTH 15.7 % (11.5-14.5); RED BLOOD CELL CT 3.83 /CUMM (4.70-6.10); WHITE BLOOD CELL COUNT 12.9 /CUMM (4.8-10.8)
--- NOTE | 2016-12-09 10:45 | PN- Att Addend ---
Attending Addendum Attending Brief Note Patient seen and examined in the emergency room. Plan of care discussed with the medical team and the patient. Available lab work and radiology test reports were reviewed. Patient appears comfortable and pleasant and denies any chest pain fever chills nausea or vomiting. He continues to have a moderate cough with scant sputum production and mild to moderate Difficulty breathing. Vital Signs Date Time Temp Pulse Resp B/P B/P Pulse O2 O2 Flow FiO2 Mean Ox Delivery Rate 12/09 0752 97.6 83 20 154/77 96 Nasal Cannula 12/09 0645 96 Nasal 2.0L Cannula 12/09 0129 99.3 90 20 146/82 95 Nasal 2.0L Cannula 12/09 0005 140 144/79 12/08 2353 140 28 144/79 12/08 2340 98.0 140 21 161/97 98 12/08 2304 97 Nasal 2.0L Cannula 12/08 2210 99.0 104 18 145/73 97 Nasal 2.0L Cannula 12/08 2042 94 Nasal 2.0L Cannula 12/08 1705 98.5 89 18 173/76 97 Nasal 2.0L Cannula 12/08 1535 Nasal 2.0L Cannula Intake & Output 12/09 1600 12/09 0800 12/09 0000 Intake Total 800 Output Total 1125 700 Balance -325 -700 Intake, IV 800 Output, Urine 1125 700 Patient 233 lb Weight Weight Reported by Patient Measurement Method Exam: General: Patient awake alert oriented without any distress CVS: S1 plus S2 without any murmur or gallops Chest: Few scattered crepitation with expiratory prolongation and mild wheeze. There is no respiratory distress. 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 Laboratory Tests 12/09 07 Chemistry Sodium (137 - 145 mmol/L) 137 Potassium (3.5 - 5.1 mmol/L) 4.0 Chloride (98 - 107 mmol/L) 100 Carbon Dioxide (22 - 30 mmol/L) 33 H Anion Gap (5 - 16) 4 L BUN (9 - 20 mg/dL) 11 Creatinine (0.7 - 1.2 mg/dL) 0.5 L Estimated GFR (>60 ml/min) > 60 BUN/Creatinine Ratio (7 - 25 %) 22.0 Total Bilirubin (0.2 - 1.3 mg/dL) 0.4 Direct Bilirubin (< 0.4 mg/dL) 0.4 AST (17 - 59 U/L) 35 ALT (21 - 72 U/L) 53 Alkaline Phosphatase (< 127 U/L) 71 C-Reactive Prot, Quant (<1.0 mg/dL) 4.8 H C-React Prot High Sens (1.0 - 3.0 mg/L) > 15.0 H Total Protein (6.3 - 8.2 g/dL) 6.0 L Albumin (3.5 - 5.0 g/dL) 2.9 L Hematology CBC w Diff NO MAN DIFF REQ WBC (4.8 - 10.8 /CUMM) 12.9 H RBC (4.70 - 6.10 /CUMM) 3.83 L Hgb (14.0 - 18.0 G/DL) 11.3 L Hct (42 - 52 %) 34.4 L MCV (80.0 - 94.0 FL) 89.9 MCH (27.0 - 31.0 PG) 29.5 RDW (11.5 - 14.5 %) 15.7 H Plt Count (130 - 400 /CUMM) 340 MPV (7.4 - 10.4 FL) 7.8 Gran % (42.2 - 75.2 %) 74.9 Lymphocytes % (20.5 - 51.1 %) 16.2 L Monocytes % (1.7 - 9.3 %) 6.5 Eosinophils % (0 - 5 %) 2.1 Basophils % (0.0 - 2.0 %) 0.3 Absolute Granulocytes (1.4 - 6.5 /CUMM) 9.7 H Absolute Lymphocytes (1.2 - 3.4 /CUMM) 2.1 Absolute Monocytes (0.10 - 0.60 /CUMM) 0.8 H Absolute Eosinophils (0.0 - 0.7 /CUMM) 0.3 Absolute Basophils (0.0 - 0.2 /CUMM) 0 PUBS MCHC (33.0 - 37.0 G/DL) 32.8 L ESR Westergren (0 - 10 MM) Pending Microbiology Date/Time Procedure - Status Source Growth 12/09 914 Urine Culture - RECD URINE ROUT 12/09 001 Legionella Antigen - COMP URINE ROUT 12/09 14 Streptococcus pneumoniae Antigen (M - COMP URINE ROUT Chest x-ray December 07 Retrocardiac opacification and obscuration of the left hemidiaphragm suspicious for a left lower lobe infiltrate. Recommendation is for a followup chest series to be obtained following treatment and/or resolution of symptoms to assure resolution of this appearance. 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 No the patient was never febrile in the hospital. * Continue prednisone taper * Await culture reports * Pulmonary consult * Dr. Polk was present in the room at the time.
--- NOTE | 2016-12-09 11:21 | Cons- Pulmonary ---
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 He notes foul smell to his urine and has noted urine leaking, despite of him doing the straight cath protocol. He was recently treated with Levaquin for pneumonia (September 2016 while at [facility]) and for a UTI with Cipro (November 29). He reports that Dr. Polk asked him to come to the ER to further address his urinary symptom. Urinalysis shows trace leukocytosis, WBCs of 15, with a negative urine nitrate. Patient denies dysuria, hematuria, or increased frequency. Patient had leukocytosis that improved since admission was still elevated. C-reactive protein is elevated. ESR still pending. Chest x-ray impression: Retrocardiac opacification and obscuration of the left hemidiaphragm suspicious for a left lower lobe infiltrate. Allergies/Medications Allergies: Coded Allergies: heparin (SWELLING 12/07/16) vancomycin (HIVES, SKIN CRACKES, TURNS RED, SWELLS AND PEELS 12/07/16) Home Med List: Albuterol Sulfate 2.5 MG/3 ML (0.083 %) VIAL.NEB 1 Vial INH/MATT Q4P PRN SHORTNESS OF BREATH (Reported) Albuterol Sulfate (Ventolin Hfa) 90 MCG HFA.AER.AD 2 PUF INH AD PRN COPD ( Reported) Apixaban (Eliquis) 5 MG TABLET 5 MG PO BID atrial fibrillation Ascorbate Calcium (Vitamin C) 500 MG TABLET 1 TAB PO BID SUPPLEMENT (Reported ) Atomoxetine HCl (Strattera) 40 MG CAPSULE 1 CAP PO QAM MENTAL HEALTH ( Reported) Baclofen 20 MG TABLET 1 TAB PO BID MUSCLE RELAXER (Reported) Bisacodyl (Dulcolax) 10 MG SUPP.RECT 1 SUP RC EOD GI (Reported) Budesonide/Formoterol Fumarate (Symbicort 80-4.5 Mcg Inhaler) 80 MCG-4.5 MCG/ ACTUATION HFA.AER.AD 2 PUF INH BID COPD Cannabis (Marijuana Oil) 1 amp AMP 1 TAB PO SEE ADMIN CRITERIA PAIN (Reported ) 10 MG IN AM 20 MG AT PM DOSE THIS MEDICATION PER THE PROVIDER WHO IS PRESCRIBING IT FOR YOU. Doxycycline Hyclate 100 MG CAPSULE 1 CAP PO BID infection (Reported) Evolocumab (Repatha Sureclick) 140 MG/ML PEN.INJCTR 1 ML SC Q2W CHOLESTEROL ( Reported) Furosemide 20 MG TABLET 3 TAB PO Q48 DIURETIC (Reported) Gabapentin 300 MG CAPSULE 1 TAB PO Q8H PRN NEUROPATHIC PAIN Guaifenesin (Mucinex) 600 MG TAB.ER.12H 2 TAB PO BID MUCUS (Reported) Lactobacillus Acidophilus (Acidophilus) 1 EACH CAPSULE 1 CAP PO BID PROBIOTIC (Reported) Lorazepam (Ativan) 0.5 MG TABLET 1 TAB PO DAILY PRN ANXIETY Magnesium Oxide (Magnesium) 400 MG CAPSULE 1 CAP PO 0600 SUPPLEMENT (Reported ) Metoprolol Tartrate 25 MG TABLET 12.5 MG PO BID heart rate Montelukast Sodium (Singulair) 10 MG TABLET 1 TAB PO DAILY ASTHMA (Reported) Multivitamin (Multi-Day Vitamins) 1 EACH TABLET 1 TAB PO DAILY SUPPLEMENT ( Reported) Nortriptyline HCl 10 MG CAPSULE 1 CAP PO QPM MENTAL HEALTH (Reported) Omeprazole 20 MG CAPSULE.DR 1 CAP PO DAILY GI (Reported) Oxycodone HCl/Acetaminophen (Oxycodone-Acetaminophen 5-325) 5 MG-325 MG TABLET 1-2 TAB PO Q4H PRN PAIN (Reported) Pantoprazole Sodium (Protonix) 40 MG TABLET.DR 1 TAB PO DAILY ACID REFLUX ( Reported) Potassium Chloride 20 MEQ TAB.ER.PRT 1 TAB PO DAILY SUPPLEMENT (Reported) Prednisone 10 MG TABLET 1 TAB PO SEE ADMIN CRITERIA COPD SEE ODALYS DISCHARGE INSTRUCTIONS Rifampin (Rifadin) 300 MG CAPSULE 1 CAP PO BID MRSA PROPHYLAXIS (Reported) Sotalol (Betapace) 80 MG TABLET 80 MG PO BID AARYTHMIAS Tiotropium [place] (Spiriva) 18 MCG CAP.W.DEV 1 CAP INH DAILY BREATHING ( Reported) Trazodone HCl 50 MG TABLET 0.5 TAB PO DAILY PRN INSOMNIA Review of Systems Review of Systems Constitutional: Reports: fever, malaise. Denies: chills, weakness, unexplained weight loss. EENTM: Reports: no symptoms. Cardiovascular: Denies: chest pain, edema, orthopena, palpitations, syncope. Respiratory: Reports: cough, short of breath, sputum production. Denies: hemoptysis, orthopnea, stridor, wheezing. GI: Denies: abdominal pain, constipation, diarrhea, nausea, vomiting. Genitourinary: Denies: dysuria, frequency, hematuria. 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 Home Who Do You Live With? 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 Ambulation: wheelchair IADLs Independent: shopping, housework, finances, food prep, telephone, transportation , medication admin. Exam & Diagnostic Data Last 24 Hrs of Vital Signs/I&O Vital Signs Date Time Temp Pulse Resp B/P B/P Pulse O2 O2 Flow FiO2 Mean Ox Delivery Rate 12/09 1134 97 Nasal 2.0L Cannula 12/09 0800 94 Nasal 2.0L Cannula 12/09 0752 97.6 83 20 154/77 96 Nasal Cannula 12/09 0645 96 Nasal 2.0L Cannula 12/09 0129 99.3 90 20 146/82 95 Nasal 2.0L Cannula 12/09 0005 140 144/79 12/08 2353 140 28 144/79 12/08 2340 98.0 140 21 161/97 98 07/19 2304 97 Nasal 2.0L Cannula 12/08 2210 99.0 104 18 145/73 97 Nasal 2.0L Cannula 12/08 2042 94 Nasal 2.0L Cannula 12/08 1705 98.5 89 18 173/76 97 Nasal 2.0L Cannula 12/08 1535 Nasal 2.0L Cannula Intake & Output 12/09 1600 12/09 0800 12/09 0000 Intake Total 800 Output Total 1125 700 Balance -325 -700 Intake, IV 800 Output, Urine 1125 700 Patient 105.687 kg Weight Weight Reported by Patient Measurement Method Physical Exam General Appearance: no apparent distress, alert, awake, comfortable Head: atraumatic, normal appearance Eyes: Bilateral: normal appearance, PERRL, EOMI. Ears, Nose, Throat: normal pharynx Respiratory: chest non-tender, rhonchi (scattered ), rales (scattered), diminished airentry over lungs bilaterllay Cardiovascular: regular rate/rhythm Gastrointestinal: soft, non-tender Last 48 Hrs of Labs/Bryan: Laboratory Tests 12/09/16 0720: Anion Gap 4 L, Estimated GFR > 60, BUN/Creatinine Ratio 22.0, Total Bilirubin 0.4, Direct Bilirubin 0.4, AST 35, ALT 53, Alkaline Phosphatase 71, C-Reactive Prot, Quant 4.8 H, C-React Prot High Sens > 15.0 H, Total Protein 6.0 L, Albumin 2.9 L, CBC w Diff NO MAN DIFF REQ, RBC 3.83 L, MCV 89.9, MCH 29.5, RDW 15.7 H, MPV 7.8, Gran % 74.9, Lymphocytes % 16.2 L, Monocytes % 6.5, Eosinophils % 2.1, Basophils % 0.3, Absolute Granulocytes 9.7 H, Absolute Lymphocytes 2.1, Absolute Monocytes 0.8 H, Absolute Eosinophils 0.3, Absolute Basophils 0, PUBS MCHC 32.8 L, ESR Westergren Pending 12/08/16 0557: Anion Gap 6, Estimated GFR > 60, BUN/Creatinine Ratio 28.0 H, CBC w Diff NO MAN DIFF REQ, RBC 4.11 L, MCV 90.7, MCH 28.9, RDW 15.9 H, MPV 7.2 L, Gran % 84.6 H, Lymphocytes % 12.0 L, Monocytes % 3.1, Eosinophils % 0.2, Basophils % 0.1, Absolute Granulocytes 12.2 H, Absolute Lymphocytes 1.7, Absolute Monocytes 0.4, Absolute Eosinophils 0, Absolute Basophils 0, PUBS MCHC 31.9 L 12/07/161957: Anion Gap 5, Estimated GFR > 60, BUN/Creatinine Ratio 23.3, Glucose 93, Calcium 9.7, Total Bilirubin 0.5, AST 28, ALT 45, Alkaline Phosphatase 82, Total Protein 6.7, Albumin 3.3 L, Globulin 3.4, Albumin/Globulin Ratio 1.0 L 12/07/161916: CBC w Diff NO MAN DIFF REQ, RBC 4.27 L, MCV 90.3, MCH 28.9, RDW 15.2 H, MPV 7.5, Gran % 75.6 H, Lymphocytes % 16.0 L, Monocytes % 5.6, Eosinophils % 2.7, Basophils % 0.1, Absolute Granulocytes 10.2 H, Absolute Lymphocytes 2.2, Absolute Monocytes 0.8 H, Absolute Eosinophils 0.4, Absolute Basophils 0, PUBS MCHC 32.0 L 12/07/16 1800: Urine Color YEL, Urine Clarity CLEAR, Urine pH 6.0, Ur Specific [place] >= 1.030 , Urine Protein TRACE H, Urine Ketones TRACE H, Urine Nitrite NEG, Urine Bilirubin NEG, Urine Urobilinogen 0.2, Ur Leukocyte Esterase SMALL H, Ur Microscopic SEDIMENT EXAMINED, Urine RBC 1-3, Urine WBC 10-15 H, Ur Epithelial Cells MOD H, Hyaline Casts FEW H, Urine Mucus MOD H, Urine Hemoglobin TRACE- LYSED H, Urine Glucose NEG Microbiology 12/09 14 URINE ROUT: Legionella Antigen - COMP 12/09 14 URINE ROUT: Streptococcus pneumoniae Antigen (M - COMP Assessment/Plan Impression/Plan: This is a patient with extensive past medical history including but not limited to COPD on 2 L oxygen at home, recurrent UTI secondary to repeated cath insertion, recurrent pneumonia who was admitted to a assisted for 22 days and discharged on beginning of October. Patient reported he was treated for pneumonia and UTI at the nursing facility with no significant improvement on his cough. Patient is afebrile but with leukocytosis (on steroid). He said report cough occasionally productive of light green sputum. Currently on ceftazidime and azithromycin. Problems * Hospital-acquired pneumonia * COPD on 2 L oxygen * History of neurogenic bladder with recurrent UTI * paraplegia secondary to T6-7 spinal MRSA abscess on suppressive antibiotic regimen with rifampin and doxycycline * JELANI/asthma * atrial fibrillation on Eliquis Plan * Order CT chest without IV contrast * TRC/nebulizer * Continue inhalers as prescribed * Continue steroid taper * Continue antibiotics for hospital-acquired pneumonia as ID Consult Acknowledgment - Thank you for your consult request. RENY VOGEL,Kiran [facility]IRO[facility] 12/09/16 1214: Assessment/Plan Recommendations: I have personally seen and examined the patient, and agree with the assessment and plan as detailed above. Would recommend checking a CT of the chest, non- contrast for further evaluation. Will discuss antibiotic regimen with ID and primary team as well. Consult Acknowledgment - Thank you for your consult request.
[2016-12-09 14:30] VITALS: BP 142/80
--- NOTE | 2016-12-09 18:48 | PN- Infect Dx ---
Subjective Subjective: No productive cough. Feels much better. No fever. Fair appetite. Review of Systems Comments: 12 points reviewed as noted, otherwise negative. Objective Last 24 Hrs of Vital Signs/I&O Vital Signs Date Time Temp Pulse Resp B/P B/P Pulse O2 O2 Flow FiO2 Mean Ox Delivery Rate 12/09 1642 95 Nasal 2.0L Cannula 12/09 1600 94 Nasal 2.0L Cannula 12/09 1435 80 142/80 12/09 1430 98.3 80 20 142/80 93 Nasal 2.0L Cannula 12/09 1134 97 Nasal 2.0L Cannula 12/09 0800 94 Nasal 2.0L Cannula 12/09 0752 97.6 83 20 154/77 96 Nasal Cannula 12/09 0645 96 Nasal 2.0L Cannula 12/09 0129 99.3 90 20 146/82 95 Nasal 2.0L Cannula 12/09 0005 140 144/79 12/08 2353 140 28 144/79 12/08 2340 98.0 140 21 161/97 98 12/08 2304 97 Nasal 2.0L Cannula 12/08 2210 99.0 104 18 145/73 97 Nasal 2.0L Cannula 12/08 2042 94 Nasal 2.0L Cannula Intake & Output 12/09 1600 12/09 0800 12/09 0000 Intake Total 1800 800 Output Total 3400 1125 700 Balance -1600 -325 -700 Intake, IV 800 800 Intake, Oral 1000 Number 0 Bowel Movements Output, Urine 3400 1125 700 Patient 233 lb Weight Weight Reported by Patient Measurement Method Physical Exam Other Physical Findings: General Appearance , Cooperative, No Acute Distress Skin No Rashes HEENT Atraumatic, PERRLA, EOMI, Mucous Membr. moist/pink Neck Supple, No JVD, +2 Carotid Pulse wo Bruit Lymphatic Cervical nl Cardiovascular Regular Rate, Normal S1, Normal S2, No Murmurs Lungs B/L expiratory wheezing Abdomen Normal Bowel Sounds, Soft, protuberant Neurological Normal Speech, Cranial Nerves 3-12 NL, Alert, Oriented X3 Extremities ++ edema of the lower extremities B/L (L>R) Vascular Normal Pulses, Pulses Symmetrical Results Last 24 Hours of Lab Results: Laboratory Tests 12/09 0720 Chemistry Sodium (137 - 145 mmol/L) 137 Potassium (3.5 - 5.1 mmol/L) 4.0 Chloride (98 - 107 mmol/L) 100 Carbon Dioxide (22 - 30 mmol/L) 33 H Anion Gap (5 - 16) 4 L BUN (9 - 20 mg/dL) 11 Creatinine (0.7 - 1.2 mg/dL) 0.5 L Estimated GFR (>60 ml/min) > 60 BUN/Creatinine Ratio (7 - 25 %) 22.0 Total Bilirubin (0.2 - 1.3 mg/dL) 0.4 Direct Bilirubin (< 0.4 mg/dL) 0.4 AST (17 - 59 U/L) 35 ALT (21 - 72 U/L) 53 Alkaline Phosphatase (< 127 U/L) 71 C-Reactive Prot, Quant (<1.0 mg/dL) 4.8 H C-React Prot High Sens (1.0 - 3.0 mg/L) > 15.0 H Total Protein (6.3 - 8.2 g/dL) 6.0 L Albumin (3.5 - 5.0 g/dL) 2.9 L Hematology CBC w Diff NO MAN DIFF REQ WBC (4.8 - 10.8 /CUMM) 12.9 H RBC (4.70 - 6.10 /CUMM) 3.83 L Hgb (14.0 - 18.0 G/DL) 11.3 L Hct (42 - 52 %) 34.4 L MCV (80.0 - 94.0 FL) 89.9 MCH (27.0 - 31.0 PG) 29.5 RDW (11.5 - 14.5 %) 15.7 H Plt Count (130 - 400 /CUMM) 340 MPV (7.4 - 10.4 FL) 7.8 Gran % (42.2 - 75.2 %) 74.9 Lymphocytes % (20.5 - 51.1 %) 16.2 L Monocytes % (1.7 - 9.3 %) 6.5 Eosinophils % (0 - 5 %) 2.1 Basophils % (0.0 - 2.0 %) 0.3 Absolute Granulocytes (1.4 - 6.5 /CUMM) 9.7 H Absolute Lymphocytes (1.2 - 3.4 /CUMM) 2.1 Absolute Monocytes (0.10 - 0.60 /CUMM) 0.8 H Absolute Eosinophils (0.0 - 0.7 /CUMM) 0.3 Absolute Basophils (0.0 - 0.2 /CUMM) 0 PUBS MCHC (33.0 - 37.0 G/DL) 32.8 L ESR Westergren (0 - 10 MM) 55 H Last 24 Hours of Bryan Results: SPEC #: [id number] ANTAN: 12/07/16 STATUS: RES RECD: 12/07/[address]: EMILIA MARSH SOURCE: BLOOD ENTR: 12/07/16 [facility] DR: LALA SMALL MD SPDESC: 1ST/VENOUS ORDERED: BLOOD CULTURE Procedure Result > BLOOD CULTURE REPORT Preliminary 12/08/16 No growth after 1 day incubation. Specimen is examined continuously for 5 days before final report unless culture becomes positive. Recent Imaging Studies: SERVICE DATE: 12/07/16 EXAM TYPE: RAD - XRY-CHEST XRAY, PA AND LATERAL EXAMINATION: CHEST 2 VIEWS CLINICAL INFORMATION: Cough, shortness of breath. COMPARISON: 10/11/2016. TECHNIQUE: PA and lateral views of the chest were obtained. FINDINGS: The cardiac silhouette is not enlarged. The mediastinal and hilar contours are unremarkable. There is obscuration of the left hemidiaphragm and faint retrocardiac opacification. The osseous structures are unremarkable. IMPRESSION: Retrocardiac opacification and obscuration of the left hemidiaphragm suspicious for a left lower lobe infiltrate. Recommendation is for a followup chest series to be obtained following treatment and/or resolution of symptoms to assure resolution of this appearance. DICTATED BY: GURMEET LOPEZ MD DATE/TIME DICTATED:12/07/161999 HAND POLISHER:PAULO DATE/TIME TRANSCRIBED:12/07/161999 CONFIDENTIAL, DO NOT COPY WITHOUT APPROPRIATE AUTHORIZATION. 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 Eval recurrent UTI; h/o neurogenic bladder on straight cath protocol, recetly treated w/ Cipro; of note UC no growth at 2 d. COPD exacerbation; eval LLL pneumonia; h/o Ps.aeruginosa (pansensitive) lung infection; clinically improved since admission Leukocytosis Suggestion: 1. F/u culture results to further guide antibiotic treatment; currently treated empirically with iv Ceftazidime dose 1 gm q 8 h D #2. Would d/c azithromycin. 2. Cont suppressive abx treatment with rifampin/doxycycline. 3. Trend CBC, BMP. 4. CT chest eval pneumonia.
[2016-12-09 23:50] VITALS: BP 156/73
--- NOTE | 2016-12-10 07:41 | CT SCAN REPORT ---
EXAMINATION: CT CHEST WITHOUT CONTRAST CLINICAL INFORMATION: Shortness of breath. Left lower lobe pneumonia with previous scarring. COMPARISON: Chest x-ray dated 12/07/2016. CT scan of the chest dated 10/31/2013. TECHNIQUE: Multidetector volumetric CT imaging of the chest was obtained noncontrast. Sagittal and coronal reformations were obtained. DLP: 802.46 mGy-cm. FINDINGS: LUNGS: Small left-sided pleural effusion. Prominent subpleural fat seen bilaterally. Small calcified granuloma seen in the left lower lobe (series 4, image 300). No suspicious pulmonary nodule or mass seen. Central airways patent. Moderate centrilobular emphysema and mild paraseptal emphysema. Volume loss in both lower lobes is seen. Dependent areas of patchy lung parenchymal consolidation, left greater than right, most consistent with dependent atelectasis. Superimposed pneumonia, especially in the left lung base cannot be excluded. Linear bandlike atelectasis or scarring seen in the lingula. CARDIOVASCULAR STRUCTURES: Aortic and heart size normal. Small pericardial effusion. Severe coronary artery calcifications and mild aortic calcifications. LYMPHATIC STRUCTURES: Borderline enlarged right lower paratracheal lymph node is seen, measuring 1 cm in short axis. Other subcentimeter sized prevascular, right and left paratracheal, and subcarinal and axillary lymph nodes are seen without pathologic enlargement. No definite hilar lymph nodes. THYROID GLAND: Unremarkable to the extent included. UPPER ABDOMEN: Included portions of the solid organs in the upper abdomen within normal limits. BONES: Extensive loose bodies seen within the left shoulder joint with secondary moderate degenerative changes in the glenohumeral joint. Osteopenia with approximately 50% anterior wedge compression deformity of T7 vertebral body again seen, unchanged. Secondary partial fusion along the anterior and posterior vertebral margins and facets seen at T6-T7 with mild focal kyphosis at this level. Mild S-shaped scoliosis also seen. Moderate vertebral endplate spurring seen in the mid and lower thoracic spine. IMPRESSION: 1. Obstructive lung disease with bibasilar dependent areas of lung parenchymal consolidation, left greater than right. Findings may be related to atelectasis with possible superimposed pneumonia in left lung base. Borderline mediastinal lymph nodes are likely reactive. 2. Small left pleural effusion. 3. Platelike atelectasis or scarring in the lingula. 4. Severe coronary artery calcifications. 5. Osteopenia with chronic 50% wedge compression deformity of T7 with partial fusion, focal kyphosis and secondary degenerative change as discussed above.
[2016-12-10 07:43] VITALS: BP 127/71
--- NOTE | 2016-12-10 08:24 | PN- Att Addend ---
Attending Addendum Attending Brief Note Patient seen and examined in the emergency room. Plan of care discussed with the medical team and the patient. Available lab work and radiology test reports were reviewed. Patient appears comfortable and pleasant and denies any chest pain fever chills nausea or vomiting. He continues to have a moderate cough with scant sputum production and mild to moderate Difficulty breathing. Orellana was inserted yesterday. No new complaints today. Pt is not producing sputum. Vital Signs Date Time Temp Pulse Resp B/P B/P Pulse O2 O2 Flow FiO2 Mean Ox Delivery Rate 12/10 0743 98.1 74 20 127/71 91 Nasal 2.0L Cannula 12/10 0000 Nasal 2.0L Cannula 12/09 2350 98.1 81 22 156/73 93 Nasal 2.0L Cannula 12/09 2121 81 156/78 12/09 1642 95 Nasal 2.0L Cannula 12/09 1600 94 Nasal 2.0L Cannula 12/09 1435 80 142/80 12/09 1430 98.3 80 20 142/80 93 Nasal 2.0L Cannula 12/09 1134 97 Nasal 2.0L Cannula Intake & Output 12/10 1600 12/10 0800 12/10 0000 Intake Total 600 600 Output Total 250 750 Balance -250 600 -150 Intake, Oral 600 600 Output, Urine 250 750 Exam: General: Patient awake alert oriented without any distress CVS: S1 plus S2 without any murmur or gallops Chest: Few scattered crepitation with expiratory prolongation and mild wheeze. There is no respiratory distress. 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 Laboratory Tests 12/10 07 Chemistry Sodium (137 - 145 mmol/L) 136 L Potassium (3.5 - 5.1 mmol/L) 3.8 Chloride (98 - 107 mmol/L) 96 L Carbon Dioxide (22 - 30 mmol/L) 35 H Anion Gap (5 - 16) 5 BUN (9 - 20 mg/dL) 15 Creatinine (0.7 - 1.2 mg/dL) 0.5 L Estimated GFR (>60 ml/min) > 60 BUN/Creatinine Ratio (7 - 25 %) 30.0 H Hematology CBC w Diff NO MAN DIFF REQ WBC (4.8 - 10.8 /CUMM) 14.9 H RBC (4.70 - 6.10 /CUMM) 4.01 L Hgb (14.0 - 18.0 G/DL) 11.7 L Hct (42 - 52 %) 36.4 L MCV (80.0 - 94.0 FL) 90.8 MCH (27.0 - 31.0 PG) 29.3 RDW (11.5 - 14.5 %) 15.4 H Plt Count (130 - 400 /CUMM) 342 MPV (7.4 - 10.4 FL) 8.2 Gran % (42.2 - 75.2 %) 75.6 H Lymphocytes % (20.5 - 51.1 %) 14.7 L Monocytes % (1.7 - 9.3 %) 6.7 Eosinophils % (0 - 5 %) 2.8 Basophils % (0.0 - 2.0 %) 0.2 Absolute Granulocytes (1.4 - 6.5 /CUMM) 11.2 H Absolute Lymphocytes (1.2 - 3.4 /CUMM) 2.2 Absolute Monocytes (0.10 - 0.60 /CUMM) 1.0 H Absolute Eosinophils (0.0 - 0.7 /CUMM) 0.4 Absolute Basophils (0.0 - 0.2 /CUMM) 0 PUBS MCHC (33.0 - 37.0 G/DL) 32.2 L Blood cultures remain negative so far. CT chest 1. Obstructive lung disease with bibasilar dependent areas of lung parenchymal consolidation, left greater than right. Findings may be related to atelectasis with possible superimposed pneumonia in left lung base. Borderline mediastinal lymph nodes are likely reactive. 2. Small left pleural effusion. 3. Platelike atelectasis or scarring in the lingula. 4. Severe coronary artery calcifications. 5. Osteopenia with chronic 50% wedge compression deformity of T7 with partial fusion, focal kyphosis and secondary degenerative change as discussed above. 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
[2016-12-10 08:33] LABS: ABSOLUTE BASOPHIL COUNT 0 /CUMM (0.0-0.2); ABSOLUTE EOSINOPHIL COUNT 0.4 /CUMM (0.0-0.7); ABSOLUTE GRANULOCYTE CT 11.2 /CUMM (1.4-6.5); ABSOLUTE LYMPH COUNT 2.2 /CUMM (1.2-3.4); BASOPHIL % 0.2 % (0.0-2.0); EOSINOPHIL % 2.8 % (0-5); GRANULOCYTE % 75.6 % (42.2-75.2); HEMATOCRIT 36.4 % (42-52); MEAN CORPUSCULAR HGB 29.3 PG (27.0-31.0); MEAN CORPUSCULAR HGB CONC 32.2 G/DL (33.0-37.0); MEAN CORPUSCULAR VOLUME 90.8 FL (80.0-94.0); MEAN PLATELET VOLUME 8.2 FL (7.4-10.4); PLATELET COUNT 342 /CUMM (130-400); RBC DISTRIBUTION WIDTH 15.4 % (11.5-14.5); RED BLOOD CELL CT 4.01 /CUMM (4.70-6.10); WHITE BLOOD CELL COUNT 14.9 /CUMM (4.8-10.8)
--- NOTE | 2016-12-10 08:53 | PN- Housestaff ---
Subjective Follow-up For: COPD CAP Subjective: I have seen and examined the patient. The patient was lying comfortably in the bed. He says that he feels much better. There has been no overnight acute events. He has been afebrile so far. He denies any chest pain palpitations or shortness of breath. Today Kiran Bustillos MD is going to see him. Review of Systems Constitutional: Reports: no symptoms. Denies: diaphoresis, fever. Cardiovascular: Denies: chest pain, edema. Respiratory: Reports: cough (improving), sputum production. Gastrointestinal: Denies: abdominal pain, bloating, constipation. Genitourinary: Reports: no symptoms. Skin: Reports: no symptoms. Objective Last 24 Hrs of Vital Signs/I&O Vital Signs Date Time Temp Pulse Resp B/P B/P Pulse O2 O2 Flow FiO2 Mean Ox Delivery Rate 12/10 0925 74 126/70 12/10 0925 95 Nasal 2.0L Cannula 12/10 0910 95 Nasal 2.0L Cannula 12/10 0800 93 Nasal 2.0L Cannula 12/10 0743 98.1 74 20 127/71 91 Nasal 2.0L Cannula 12/10 0000 Nasal 2.0L Cannula 12/09 2350 98.1 81 22 156/73 93 Nasal 2.0L Cannula 12/09 2121 81 156/78 12/09 1642 95 Nasal 2.0L Cannula 12/09 1600 94 Nasal 2.0L Cannula 12/09 1435 80 142/80 12/09 1430 98.3 80 20 142/80 93 Nasal 2.0L Cannula 12/09 1134 97 Nasal 2.0L Cannula Intake & Output 12/10 1600 12/10 0800 12/10 0000 Intake Total 600 600 Output Total 250 750 Balance -250 600 -150 Intake, Oral 600 600 Output, Urine 250 750 Physical Exam General Appearance: Alert, Oriented X3, Cooperative HEENT: Atraumatic Neck: Supple Cardiovascular: Normal S1, Normal S2, No Murmurs Lungs: Few scattered crepitation with expiratory prolongation and mild wheeze. There is no respiratory distress. Abdomen: Normal Bowel Sounds, Soft, No Tenderness Neurological: Normal Speech Extremities: No Clubbing, No Cyanosis Current Medications: Current Medications Sig/Danni Start time Last Medication Dose Route Stop Time Status Admin Albuterol Sulfate 3 ML EVERY 4 HRS/AWAKE 12/08 1600 AC 12/10 INH 0904 Albuterol Sulfate 2 PUF Q6P PRN 12/07 2330 AC 12/09 INH 1036 Albuterol Sulfate 3 ML Q4P PRN 12/07 2330 AC 12/08 INH 1028 Apixaban 5 MG BID 12/07 2325 AC 12/10 PO 0924 Azithromycin 500 MG DAILY 12/08 1000 DC 12/09 Sodium Chloride 250 ML IV 0948 Baclofen 20 MG BID 12/07 2327 AC 12/10 PO 0924 Bisacodyl 10 MG DAILY PRN 12/08 1400 AC 12/08 OR 1425 Ceftazidime 1,000 MG Q8 12/08 0600 AC 12/10 IV 0605 Doxycycline Hyclate 100 MG BID 12/07 2327 AC 12/10 PO 0925 Furosemide 60 MG Q48 12/09 1000 AC 12/09 PO 1034 Gabapentin 600 MG Q8H 12/08 0930 AC 12/10 PO 0924 Guaifenesin 1,200 MG BID 12/08 1000 AC 12/10 PO 0925 Lorazepam 1 MG BID PRN 12/07 2330 AC PO Metoprolol Tartrate 12.5 MG BID 12/09 1200 AC 12/10 PO 0925 Metoprolol Tartrate 12.5 MG BID 12/09 1000 DC PO Montelukast Sodium 10 MG DAILY 12/08 1000 AC 12/10 PO 0925 Multivitamins 1 TAB DAILY 12/08 1000 AC 12/10 Therapeutic PO 0925 Nortriptyline HCl 10 MG QPM 12/08 2200 AC 12/09 PO 2121 Omeprazole 20 MG DAILY AC 12/08 0700 AC 12/10 PO 0605 Oxycodone/ 1 TAB ONCE ONE 12/09 2145 DC 12/09 Acetaminophen PO 12/09 2146 2147 Prednisone 10 MG DAILY 12/14 1000 AC PO 12/15 1001 Prednisone 20 MG DAILY 12/12 1000 AC PO 12/13 1001 Prednisone 30 MG DAILY 12/10 1000 AC 12/10 PO 12/11 1001 0925 Rifampin 300 MG DAILY 12/08 1000 AC 12/10 PO 0925 Sodium Chloride 1,000 ML .Q10H 12/07 2345 DC 12/09 IV 0752 Sotalol HCl 80 MG BID 12/09 1000 AC 12/10 PO 0924 Tiotropium [place] 1 PUF DAILY 07/19 1000 AC 12/10 INH 0926 Trazodone HCl 50 MG .STK-MED ONE 12/10 0105 DC PO 12/10 0106 Trazodone HCl 50 MG QPM PRN 12/07 2345 AC 12/10 PO 0105 Last 24 Hrs of Lab/Bryan Results Last 24 Hrs of Labs/Mics: Laboratory Tests 12/10/16 0705: Anion Gap 5, Estimated GFR > 60, BUN/Creatinine Ratio 30.0 H, CBC w Diff NO MAN DIFF REQ, RBC 4.01 L, MCV 90.8, MCH 29.3, RDW 15.4 H, MPV 8.2, Gran % 75.6 H, Lymphocytes % 14.7 L, Monocytes % 6.7, Eosinophils % 2.8, Basophils % 0.2, Absolute Granulocytes 11.2 H, Absolute Lymphocytes 2.2, Absolute Monocytes 1.0 H, Absolute Eosinophils 0.4, Absolute Basophils 0, PUBS MCHC 32.2 L Assessment/Plan Assessment: The pt is 66 year obese male with a history of COPD , bilateral lower extremity edema, HTN, hyperlipidemia, history of atrial fibrillation on Eliquis, asthma, neurogenic bladder, depression, chronic constipation, muscle spasms, JELANI, CAD s/ p stent placement, IVC filter placement, 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 He presented to the ED complaining of urinary leakage, malodorous urine , persistent cough since his last admission for pneumonia, and fever. CT findings 12/01 1. Obstructive lung disease with bibasilar dependent areas of lung parenchymal consolidation, left greater than right. Findings may be related to atelectasis with possible superimposed pneumonia in left lung base.Borderline mediastinal lymph nodes are likely reactive. 2. Small left pleural effusion. 3. Platelike atelectasis or scarring in the lingula. 4. Severe coronary artery calcifications. 5. Osteopenia with chronic 50% wedge compression deformity of T7 with partial fusion, focal kyphosis and secondary degenerative change as discussed above. Suspected gram-negative pneumonia :CXR in ED showed left lower lobe infiltrate, cough has not resolved since admission and treatment for previous pneumonia.Previously culture positive for psuedomonas. Pt has persistently elevated WBC count despite IV antibiotics * CT scan findings above bibasiler atelectasis with possible superimposed pneumonia LL lung base * Continue Ceftazidime dose 1 gm q 8 h Day 3 * Azithromycin discontinued as per ID recommendations * Follow cultures no growth after 1 day * Urine strep and Legionella negative COPD exacerbation * Continue prednisone taper 40 x 2 days, 30 x 2 days, 20 x 2 days, 10 x 2 days * O2 nasal canula as needed * TRC consult * Albuterol * Montelukast 10 mg daily * f/u cbc possible UTI UA significant for UrWBC 10-15, LE small, trace proteins, negative ntirites. Pt has hx of neurogenic bladder with frequent straight catheterizations (3-5 times daily) * Follow-up urine cultures. * Being followed by Dr. Polk HTN patient's heart rate and blood pressure has been towards the higher side overnight. 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 Next dose 12/08 history of hyperlipidemia * Continue IM evolocumab every two weeks. Next dose 12/12 Patient does have a history of obstructive sleep apnea however denies use of CPAP adamantly Problem List: 1. COPD 2. Gram-negative pneumonia Pain Ratin Pain Location: /a Pain Goal: Pain 4 or less Pain Plan: none Tomorrow's Labs & Rationales: cbc bep Consulting Request: Consulting Specialty: Urology
[2016-12-10 15:21] VITALS: BP 148/68
--- NOTE | 2016-12-10 15:56 | PN- Infect Dx ---
Subjective Subjective: Lying comfortably in the bed. He says that he feels much better. There has been no overnight acute events. No fever. He denie chest pain or shortness of breath at rest. Review of Systems Comments: 12 points reviewed as noted, otherwise negative. Objective Last 24 Hrs of Vital Signs/I&O Vital Signs Date Time Temp Pulse Resp B/P B/P Pulse O2 O2 Flow FiO2 Mean Ox Delivery Rate 12/10 1521 97.9 78 16 148/68 93 Nasal 2.0L Cannula 12/10 0925 74 126/70 12/10 0925 95 Nasal 2.0L Cannula 12/10 0910 95 Nasal 2.0L Cannula 12/10 0800 93 Nasal 2.0L Cannula 12/10 0743 98.1 74 20 127/71 91 Nasal 2.0L Cannula 12/10 0000 Nasal 2.0L Cannula 12/09 2350 98.1 81 22 156/73 93 Nasal 2.0L Cannula 12/09 2121 81 156/78 12/09 1642 95 Nasal 2.0L Cannula 12/09 1600 94 Nasal 2.0L Cannula Intake & Output 12/10 1600 12/10 0800 12/10 0000 Intake Total 600 600 600 Output Total 1100 750 Balance -500 600 -150 Intake, Oral 600 600 600 Output, Urine 1100 750 Physical Exam Other Physical Findings: General Appearance Elevated BMI , Cooperative, No Acute Distress Skin No Rashes, Pale HEENT Atraumatic, EOMI, Mucous Membr. moist/pink Neck Supple, No PRISCILLA Lymphatic Cervical nl Cardiovascular S1 S2 present Lungs BS present, no rales, few b/l rhonchi, no wheezing Abdomen Protuberant Bowel Sounds, Soft, protuberant Neurological Normal Speech, Cranial Nerves 3-12 NL, Alert, Oriented X3 Extremities +1 edema of the lower extremities B/L (L>R); improved from previous day Results Last 24 Hours of Lab Results: Laboratory Tests 12/10 0705 Chemistry Sodium (137 - 145 mmol/L) 136 L Potassium (3.5 - 5.1 mmol/L) 3.8 Chloride (98 - 107 mmol/L) 96 L Carbon Dioxide (22 - 30 mmol/L) 35 H Anion Gap (5 - 16) 5 BUN (9 - 20 mg/dL) 15 Creatinine (0.7 - 1.2 mg/dL) 0.5 L Estimated GFR (>60 ml/min) > 60 BUN/Creatinine Ratio (7 - 25 %) 30.0 H Hematology CBC w Diff NO MAN DIFF REQ WBC (4.8 - 10.8 /CUMM) 14.9 H RBC (4.70 - 6.10 /CUMM) 4.01 L Hgb (14.0 - 18.0 G/DL) 11.7 L Hct (42 - 52 %) 36.4 L MCV (80.0 - 94.0 FL) 90.8 MCH (27.0 - 31.0 PG) 29.3 RDW (11.5 - 14.5 %) 15.4 H Plt Count (130 - 400 /CUMM) 342 MPV (7.4 - 10.4 FL) 8.2 Gran % (42.2 - 75.2 %) 75.6 H Lymphocytes % (20.5 - 51.1 %) 14.7 L Monocytes % (1.7 - 9.3 %) 6.7 Eosinophils % (0 - 5 %) 2.8 Basophils % (0.0 - 2.0 %) 0.2 Absolute Granulocytes (1.4 - 6.5 /CUMM) 11.2 H Absolute Lymphocytes (1.2 - 3.4 /CUMM) 2.2 Absolute Monocytes (0.10 - 0.60 /CUMM) 1.0 H Absolute Eosinophils (0.0 - 0.7 /CUMM) 0.4 Absolute Basophils (0.0 - 0.2 /CUMM) 0 PUBS MCHC (33.0 - 37.0 G/DL) 32.2 L Last 24 Hours of Bryan Results: SPEC #: [id number] NATAN: 12/09/16 STATUS: COMP RECD: 12/09/[address] [facility] [address]: JIM VOGEL,LUI SOURCE: URINE ROUT ENTR: 12/08/[address]: JOHN VOGEL, PONCHO SPDESC: KAREN SMALL MD,LALA Gray ORDERED: SPN URINE AG COMMENT: Has patient received Pneumovax in past 5 days? N TRIO Procedure Result > STREP PNEUMO URINARY ANTIGEN Final 12/09/16 NEGATIVE FOR STREP PNEUMONIAE BACTERIAL AG, MAY BE BELOW DETECTION LIMIT. Recent Imaging Studies: CT chest 12/09: IMPRESSION: 1. Obstructive lung disease with bibasilar dependent areas of lung parenchymal consolidation, left greater than right. Findings may be related to atelectasis with possible superimposed pneumonia in left lung base. Borderline mediastinal lymph nodes are likely reactive. 2. Small left pleural effusion. 3. Platelike atelectasis or scarring in the lingula. 4. Severe coronary artery calcifications. 5. Osteopenia with chronic 50% wedge compression deformity of T7 with partial fusion, focal kyphosis and secondary degenerative change as discussed above. 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 Eval recurrent UTI; h/o neurogenic bladder on straight cath protocol, recetly treated w/ Cipro; of note UC no growth to date. COPD exacerbation; eval LLL pneumonia; h/o Ps.aeruginosa (pansensitive) lung infection; clinically improved since admission Leukocytosis; WBC trending up (likely related to steroid tx) Suggestion: 1. F/u culture results to further guide antibiotic treatment; currently treated empirically with iv Azithromycin/Ceftazidime D #3/5; as clinically much improved could also d/c iv abx today and observe off iv abx (f/u pulm recom). 2. Cont suppressive abx treatment with rifampin/doxycycline. MRI thoracic spine to eval residual abscess if patient has persistent leukocytosis after tapering off steroids. 3. Trend CBC, BMP.
[2016-12-10 23:07] VITALS: BP 144/70
[2016-12-11 07:03] VITALS: BP 165/82
[2016-12-11 07:42] LABS: ABSOLUTE BASOPHIL COUNT 0 /CUMM (0.0-0.2); ABSOLUTE EOSINOPHIL COUNT 0.3 /CUMM (0.0-0.7); ABSOLUTE GRANULOCYTE CT 11.1 /CUMM (1.4-6.5); ABSOLUTE MONOCYTE COUNT 0.8 /CUMM (0.10-0.60); BASOPHIL % 0 % (0.0-2.0); GRANULOCYTE % 78.5 % (42.2-75.2); MEAN CORPUSCULAR HGB 29.1 PG (27.0-31.0); MEAN CORPUSCULAR HGB CONC 32.3 G/DL (33.0-37.0); MEAN CORPUSCULAR VOLUME 89.9 FL (80.0-94.0); PLATELET COUNT 334 /CUMM (130-400); RBC DISTRIBUTION WIDTH 15.1 % (11.5-14.5); WHITE BLOOD CELL COUNT 14.2 /CUMM (4.8-10.8)
--- NOTE | 2016-12-11 07:53 | PN- Housestaff ---
Subjective Follow-up For: COPD pneumonia Subjective: I have seen and examined the patient. The patient was lying comfortably in the bed. He was on 2 L oxygen nasal cannula. He says that he is feeling much better. He wanted his mapping editor to follow up with him in the hospital. I have given a courtesy call to Dr. Son's cardiology yesterday. He denies any chest pain palpitations fever or chills. Review of Systems Constitutional: Denies: chills, diaphoresis, malaise. EENTM: Reports: no symptoms. Cardiovascular: Denies: chest pain, edema, orthopena. Respiratory: Reports: cough, short of breath, sputum production. Gastrointestinal: Reports: no symptoms. Genitourinary: Reports: no symptoms. Musculoskeletal: Reports: no symptoms. Objective Last 24 Hrs of Vital Signs/I&O Vital Signs Date Time Temp Pulse Resp B/P B/P Pulse O2 O2 Flow FiO2 Mean Ox Delivery Rate 12/11 0910 68 150/78 12/11 0800 96 Nasal 2.0L Cannula 12/11 0745 Nasal 2.0L Cannula 12/11 0703 98.5 73 20 165/82 99 12/11 0000 Nasal 2.0L Cannula 12/10 2307 98.6 76 16 144/70 94 12/10 2221 150/64 12/10 1927 94 Nasal 2.0L Cannula 12/10 1600 93 Nasal 2.0L Cannula 12/10 1521 97.9 78 16 148/68 93 Nasal 2.0L Cannula Intake & Output 12/11 1600 12/11 0800 12/11 0000 Intake Total 240 1050 Output Total 325 450 Balance -85 600 Intake, Oral 240 1050 Number 2 Bowel Movements Output, Urine 325 450 Physical Exam General Appearance: Alert, Oriented X3, Cooperative Skin: No Rashes, No Breakdown Neck: Supple Cardiovascular: Normal S1, Normal S2, No Murmurs Lungs: Clear to Auscultation, Normal Air Movement Abdomen: Normal Bowel Sounds, Soft, No Tenderness Extremities: paraplegia Current Medications: Current Medications Sig/Danni Start time Last Medication Dose Route Stop Time Status Admin Acetaminophen 650 MG Q6P PRN 12/11 0245 AC 12/11 PO 0236 Albuterol Sulfate 3 ML EVERY 4 HRS/AWAKE 12/08 1600 AC 12/11 INH 1132 Albuterol Sulfate 2 PUF Q6P PRN 12/07 2330 AC 12/10 INH 1731 Albuterol Sulfate 3 ML Q4P PRN 12/07 2330 AC 12/08 INH 1028 Apixaban 5 MG BID 12/07 2325 AC 12/11 PO 0908 Baclofen 20 MG BID 12/07 2327 AC 12/11 PO 0909 Bisacodyl 10 MG DAILY PRN 12/08 1400 AC 12/10 WA 1731 Ceftazidime 1,000 MG Q8 12/08 0600 DC 12/10 IV 1314 Doxycycline Hyclate 100 MG BID 12/07 2327 AC 12/11 PO 0911 Furosemide 60 MG Q48 12/09 1000 AC 12/11 PO 0911 Gabapentin 600 MG Q8H 12/08 0930 AC 12/11 PO 0908 Guaifenesin 1,200 MG BID 12/08 1000 AC 12/11 PO 0910 Lorazepam 1 MG BID PRN 12/07 2330 AC 12/11 PO 0345 Metoprolol Tartrate 12.5 MG BID 12/09 1200 AC 12/11 PO 0910 Montelukast Sodium 10 MG DAILY 12/08 1000 AC 12/11 PO 0911 Multivitamins 1 TAB DAILY 12/08 1000 AC 12/11 Therapeutic PO 0911 Nortriptyline HCl 10 MG QPM 12/08 2200 AC 12/10 PO 2221 Omeprazole 20 MG DAILY AC 12/08 0700 AC 12/11 PO 0546 Prednisone 10 MG DAILY 12/14 1000 AC PO 12/15 1001 Prednisone 20 MG DAILY 12/12 1000 AC PO 12/13 1001 Prednisone 30 MG DAILY 12/10 1000 DC 12/11 PO 12/11 1001 0911 Rifampin 300 MG DAILY 12/08 1000 AC 12/11 PO 0911 Sotalol HCl 80 MG BID 12/09 1000 AC 12/11 PO 0908 Tiotropium [place]ul[place] 1 PUF DAILY 12/08 1000 AC 12/11 INH 0912 Trazodone HCl 50 MG .STK-MED ONE 12/10 2225 DC PO 12/10 2227 Trazodone HCl 50 MG QPM PRN 12/07 2345 AC 12/10 PO 2226 Last 24 Hrs of Lab/Bryan Results Last 24 Hrs of Labs/Mics: Laboratory Tests 12/11/16 0628: Anion Gap 5, Estimated GFR > 60, BUN/Creatinine Ratio 36.0 H, CBC w Diff NO MAN DIFF REQ, RBC 4.00 L, MCV 89.9, MCH 29.1, RDW 15.1 H, MPV 8.0, Gran % 78.5 H, Lymphocytes % 14.1 L, Monocytes % 5.4, Eosinophils % 2.0, Basophils % 0 L, Absolute Granulocytes 11.1 H, Absolute Lymphocytes 2.0, Absolute Monocytes 0.8 H, Absolute Eosinophils 0.3, Absolute Basophils 0, PUBS MCHC 32.3 L Microbiology 12/10 161 LOWER RESP: Respiratory Culture - RES GRAM POSITIVE COCCI 12/10 1618 LOWER RESP: Gram Stain - RES Assessment/Plan Assessment: The pt is 66 year obese male with a history of COPD , bilateral lower extremity edema, HTN, hyperlipidemia, history of atrial fibrillation on Eliquis, asthma, neurogenic bladder, depression, chronic constipation, muscle spasms, JELANI, CAD s/ p stent placement, IVC filter placement, 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 He presented to the ED complaining of urinary leakage, malodorous urine , persistent cough since his last admission for pneumonia, and fever. CT findings 12/01 1. Obstructive lung disease with bibasilar dependent areas of lung parenchymal consolidation, left greater than right. Findings may be related to atelectasis with possible superimposed pneumonia in left lung base.Borderline mediastinal lymph nodes are likely reactive. 2. Small left pleural effusion. 3. Platelike atelectasis or scarring in the lingula. 4. Severe coronary artery calcifications. 5. Osteopenia with chronic 50% wedge compression deformity of T7 with partial fusion, focal kyphosis and secondary degenerative change as discussed above. Hospital-acquired pneumonia :CXR in ED showed left lower lobe infiltrate, cough has not resolved since admission and treatment for previous pneumonia.Previously culture positive for psuedomonas. Pt has persistently elevated WBC count despite IV antibiotics * CT scan findings above bibasiler atelectasis with possible superimposed pneumonia LL lung base * Discontinue Ceftazidime as per ID recommendations * Azithromycin discontinued as per ID recommendations * Lower respiratory cultures showed mixed ebenezer after 1 day and growth of gram- positive cocci. Holding off antibiotics for now as per ID continue with doxy and rifampin suppression therapy * Urine strep and Legionella negative COPD exacerbation * Continue prednisone taper 40 x 2 days, 30 x 2 days, 20 x 2 days, 10 x 2 days * O2 nasal canula as needed * TRC consult * Albuterol * Montelukast 10 mg daily * f/u cbc possible UTI UA significant for UrWBC 10-15, LE small, trace proteins, negative ntirites. Pt has hx of neurogenic bladder with frequent straight catheterizations (3-5 times daily) * Foleys catheter in place * Follow-up urine cultures. * Being followed by Dr. Polk HTN patient's heart rate and blood pressure has been towards the higher side overnight. 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 Next dose 12/08 history of hyperlipidemia * Continue IM evolocumab every two weeks. Next dose 12/12 Patient does have a history of obstructive sleep apnea however denies use of CPAP adamantly Problem List: 1. COPD exacerbation 2. Pneumonia due to gram-negative bacteria Pain Ratin Pain Location: n/a Pain Goal: Pain 4 or less Pain Plan: none Tomorrow's Labs & Rationales: cbc bep Consulting Request: Consulting Specialty: Pulmonary Disease Consulting Physician: Kiran Bustillos MD
--- NOTE | 2016-12-11 11:29 | PN- Att Addend ---
Attending Addendum Attending Brief Note Patient seen and examined. Plan of care discussed with the medical team and the patient. Available lab work and radiology test reports were reviewed. Patient appears comfortable and pleasant and denies any chest pain fever chills nausea or vomiting. He continues to have a moderate cough with scant sputum production and mild Difficulty breathing. Orellana intact. No new complaints today. Pt is now producing scant sputum. Assessment * Hospital-acquired pneumonia suspected gram-negative such as Pseudomonas, currently stable; note sputum culture is growing GPCs. 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 Await final sputum culture. pt clinically improved but may need change in abx given GPC in sputum. * Continue prednisone taper * Await culture reports * Pulmonary consult note reviewed Exam: General: Patient awake alert oriented without any distress CVS: S1 plus S2 without any murmur or gallops Chest: Few scattered crepitation with expiratory prolongation and mild wheeze. There is no respiratory distress. Abdomen: Soft nontender, bowel sound present, no guarding or rebound CLINIC LICENSED PRACTICAL NURSE: Awake alert oriented with paraparesis follows command appropriately Extremities: No edema; no clubbing or cyanosis noted Orellana intact. Laboratory Tests 12/11 0628 Chemistry Sodium (137 - 145 mmol/L) 136 L Potassium (3.5 - 5.1 mmol/L) 4.4 Chloride (98 - 107 mmol/L) 98 Carbon Dioxide (22 - 30 mmol/L) 33 H Anion Gap (5 - 16) 5 BUN (9 - 20 mg/dL) 18 Creatinine (0.7 - 1.2 mg/dL) 0.5 L Estimated GFR (>60 ml/min) > 60 BUN/Creatinine Ratio (7 - 25 %) 36.0 H Hematology CBC w Diff NO MAN DIFF REQ WBC (4.8 - 10.8 /CUMM) 14.2 H RBC (4.70 - 6.10 /CUMM) 4.00 L Hgb (14.0 - 18.0 G/DL) 11.6 L Hct (42 - 52 %) 36.0 L MCV (80.0 - 94.0 FL) 89.9 MCH (27.0 - 31.0 PG) 29.1 RDW (11.5 - 14.5 %) 15.1 H Plt Count (130 - 400 /CUMM) 334 MPV (7.4 - 10.4 FL) 8.0 Gran % (42.2 - 75.2 %) 78.5 H Lymphocytes % (20.5 - 51.1 %) 14.1 L Monocytes % (1.7 - 9.3 %) 5.4 Eosinophils % (0 - 5 %) 2.0 Basophils % (0.0 - 2.0 %) 0 L Absolute Granulocytes (1.4 - 6.5 /CUMM) 11.1 H Absolute Lymphocytes (1.2 - 3.4 /CUMM) 2.0 Absolute Monocytes (0.10 - 0.60 /CUMM) 0.8 H Absolute Eosinophils (0.0 - 0.7 /CUMM) 0.3 Absolute Basophils (0.0 - 0.2 /CUMM) 0 PUBS MCHC (33.0 - 37.0 G/DL) 32.3 L Microbiology Date/Time Procedure - Status Source Growth 12/10 1618 Respiratory Culture - RES LOWER RESP GRAM POSITIVE COCCI 12/10 1618 Gram Stain - RES LOWER RESP Vital Signs Date Time Temp Pulse Resp B/P B/P Pulse O2 O2 Flow FiO2 Mean Ox Delivery Rate 12/11 0910 68 150/78 12/11 0745 Nasal 2.0L Cannula 12/11 0703 98.5 73 20 165/82 99 12/11 0000 Nasal 2.0L Cannula 12/10 2307 98.6 76 16 144/70 94 12/10 2221 150/64 12/10 1927 94 Nasal 2.0L Cannula 12/10 1600 93 Nasal 2.0L Cannula 12/10 1521 97.9 78 16 148/68 93 Nasal 2.0L Cannula Intake & Output 12/11 1600 12/11 0800 12/11 0000 Intake Total 240 1050 Output Total 325 450 Balance -85 600 Intake, Oral 240 1050 Number 2 Bowel Movements Output, Urine 325 450
--- NOTE | 2016-12-11 14:41 | PN- Infect Dx ---
Subjective Subjective: C/o persistent cough. No fever or chills. Review of Systems Comments: 12 points reviewed as noted, otherwise negative. Objective Last 24 Hrs of Vital Signs/I&O Vital Signs Date Time Temp Pulse Resp B/P B/P Pulse O2 O2 Flow FiO2 Mean Ox Delivery Rate 12/11 0910 68 150/78 12/11 0800 96 Nasal 2.0L Cannula 12/11 0745 Nasal 2.0L Cannula 12/11 0703 98.5 73 20 165/82 99 12/11 0000 Nasal 2.0L Cannula 12/10 2307 98.6 76 16 144/70 94 12/10 2221 150/64 12/10 1927 94 Nasal 2.0L Cannula 12/10 1600 93 Nasal 2.0L Cannula 12/10 1521 97.9 78 16 148/68 93 Nasal 2.0L Cannula Intake & Output 12/11 1600 12/11 0800 12/11 0000 Intake Total 240 1050 Output Total 325 450 Balance -85 600 Intake, Oral 240 1050 Number 2 Bowel Movements Output, Urine 325 450 Patient 234 lb Weight Physical Exam Other Physical Findings: General Appearance Elevated BMI , Cooperative, No Acute Distress Skin No Rashes, Pale HEENT Atraumatic, EOMI, Mucous Membr. moist/pink Neck Supple, No PRISCILLA Lymphatic Cervical nl Cardiovascular S1 S2 present Lungs BS present, no rales, few b/l rhonchi, no wheezing Abdomen Protuberant Bowel Sounds, Soft, protuberant Neurological Normal Speech, Cranial Nerves 3-12 NL, Alert, Oriented X3 Extremities +1 edema of the lower extremities B/L (L>R) Results Last 24 Hours of Lab Results: Laboratory Tests 12/12 627 Chemistry Sodium (137 - 145 mmol/L) 136 L Potassium (3.5 - 5.1 mmol/L) 4.4 Chloride (98 - 107 mmol/L) 98 Carbon Dioxide (22 - 30 mmol/L) 33 H Anion Gap (5 - 16) 5 BUN (9 - 20 mg/dL) 18 Creatinine (0.7 - 1.2 mg/dL) 0.5 L Estimated GFR (>60 ml/min) > 60 BUN/Creatinine Ratio (7 - 25 %) 36.0 H Hematology CBC w Diff NO MAN DIFF REQ WBC (4.8 - 10.8 /CUMM) 14.2 H RBC (4.70 - 6.10 /CUMM) 4.00 L Hgb (14.0 - 18.0 G/DL) 11.6 L Hct (42 - 52 %) 36.0 L MCV (80.0 - 94.0 FL) 89.9 MCH (27.0 - 31.0 PG) 29.1 RDW (11.5 - 14.5 %) 15.1 H Plt Count (130 - 400 /CUMM) 334 MPV (7.4 - 10.4 FL) 8.0 Gran % (42.2 - 75.2 %) 78.5 H Lymphocytes % (20.5 - 51.1 %) 14.1 L Monocytes % (1.7 - 9.3 %) 5.4 Eosinophils % (0 - 5 %) 2.0 Basophils % (0.0 - 2.0 %) 0 L Absolute Granulocytes (1.4 - 6.5 /CUMM) 11.1 H Absolute Lymphocytes (1.2 - 3.4 /CUMM) 2.0 Absolute Monocytes (0.10 - 0.60 /CUMM) 0.8 H Absolute Eosinophils (0.0 - 0.7 /CUMM) 0.3 Absolute Basophils (0.0 - 0.2 /CUMM) 0 PUBS MCHC (33.0 - 37.0 G/DL) 32.3 L Last 24 Hours of Bryan Results: EC #: [id number] NATAN: 12/10/16 STATUS: RES RECD: 12/10/[address]: VALDEZ VOGEL,MCKENNA SOURCE: LOWER RESP ENTR: 12/10/[address] [facility] [address]: PONCHO LOPEZ MD SPDESC: SPUTUM STACI VOGEL,LALA Gray ORDERED: LOWER RESPIRATO Procedure Result > GRAM STAIN Preliminary 12/11/16-1430 SQUAMOUS CELLS RARE > LOWER RESPIRATORY CULTURE Preliminary 12/11/1609 Mixed ebenezer after 1 day Light growth of: GRAM POSITIVE COCCI Identification and sensitivities to follow Recent Imaging Studies: Reviewed. 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 Eval recurrent UTI; h/o neurogenic bladder on straight cath protocol, recetly treated w/ Cipro; of note UC no growth to date. COPD exacerbation; eval LLL pneumonia; h/o Ps.aeruginosa (pansensitive) lung infection; clinically improved since admission Leukocytosis; WBC trending up (likely related to steroid tx) Suggestion: 1. F/u culture results to further guide antibiotic treatment; currently treated empirically with iv Azithromycin/Ceftazidime D #4/5; as clinically improved can d/c iv abx; of note sputum cx mixed ebenezer; GPC to be identified. Please call if fever or hypotension. 2. Cont suppressive abx treatment with rifampin/doxycycline. MRI thoracic spine as OP to eval residual abscess if patient has persistent leukocytosis after tapering off steroids. 3. Trend CBC, BMP.
[2016-12-11 14:54] VITALS: BP 160/81
[2016-12-11 23:02] VITALS: BP 142/86
[2016-12-12 07:15] VITALS: BP 120/70
[2016-12-12 08:12] LABS: ABSOLUTE BASOPHIL COUNT 0 /CUMM (0.0-0.2); ABSOLUTE EOSINOPHIL COUNT 0.2 /CUMM (0.0-0.7); ABSOLUTE GRANULOCYTE CT 11.6 /CUMM (1.4-6.5); ABSOLUTE LYMPH COUNT 2.2 /CUMM (1.2-3.4); BASOPHIL % 0.2 % (0.0-2.0); EOSINOPHIL % 1.5 % (0-5); GRANULOCYTE % 77.3 % (42.2-75.2); HEMATOCRIT 36.5 % (42-52); MEAN CORPUSCULAR HGB CONC 31.8 G/DL (33.0-37.0); MEAN CORPUSCULAR VOLUME 91.1 FL (80.0-94.0); MEAN PLATELET VOLUME 7.9 FL (7.4-10.4); PLATELET COUNT 338 /CUMM (130-400); RBC DISTRIBUTION WIDTH 15.1 % (11.5-14.5); RED BLOOD CELL CT 4.01 /CUMM (4.70-6.10)
--- NOTE | 2016-12-12 08:55 | PN- Att Addend ---
Attending Addendum Attending Brief Note Patient seen and examined. Plan of care discussed with the medical team and the patient. Available lab work and radiology test reports were reviewed. Patient appears comfortable and pleasant and denies any chest pain fever chills nausea or vomiting. He continues to have a moderate cough with scant sputum production and mild Difficulty breathing. Orellana intact. No new complaints today. Pt is now producing scant sputum. Assessment * Hospital-acquired pneumonia suspected gram-negative such as Pseudomonas, currently stable; note sputum culture is growing GPCs. 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 nfectious disease notes reviewed. Await final sputum culture. This most likely is colonization. * Continue prednisone taper * Await culture reports * Plan for discharge tomorrow Exam: General: Patient awake alert oriented without any distress CVS: S1 plus S2 without any murmur or gallops Chest: Few scattered crepitation with expiratory prolongation and mild wheeze. There is no respiratory distress. Abdomen: Soft nontender, bowel sound present, no guarding or rebound HOME CARE ASSISTANT: Awake alert oriented with paraparesis follows command appropriately Extremities: No edema; no clubbing or cyanosis noted Orellana intact. Laboratory Tests 12/12 0735 Chemistry Sodium Pending Potassium Pending Chloride Pending Carbon Dioxide Pending Anion Gap Pending BUN Pending Creatinine Pending BUN/Creatinine Ratio Pending Hematology CBC w Diff Pending WBC Pending RBC Pending Hgb Pending Hct Pending MCV Pending MCH Pending RDW Pending Plt Count Pending MPV Pending PUBS MCHC Pending Vital Signs Date Time Temp Pulse Resp B/P B/P Pulse O2 O2 Flow FiO2 Mean Ox Delivery Rate 12/12 0726 96 Nasal 2.0L Cannula 12/12 0715 98.1 72 20 120/70 90 12/12 0000 92 Nasal 2.0L Cannula 12/11 2302 98.0 78 18 142/86 97 Nasal 2.0L Cannula 12/11 2216 97.1 79 18 138/67 12/11 1645 96 Nasal 2.0L Cannula 12/11 1454 97.7 77 20 160/81 91 Room Air 12/11 0910 68 150/78 Intake & Output 12/12 1600 12/12 0800 12/12 0000 Intake Total 450 Output Total 350 350 Balance -350 100 Intake, Oral 450 Output, Urine 350 350
--- NOTE | 2016-12-12 10:59 | PN- Housestaff ---
Subjective Follow-up For: COPD pneumonia Subjective: I have seen and examined the patient. The patient was lying comfortably in the bed. He was on 2 L oxygen nasal cannula There were no overnight acute events. He continues to have a moderate cough with scant sputum production and mild Difficulty breathing. He believes that he is improving. He denies any fever or chills chest pain or palpitations. Review of Systems Constitutional: Denies: chills, fever. Cardiovascular: Denies: chest pain, edema, palpitations. Respiratory: Reports: cough, short of breath, sputum production. Gastrointestinal: Reports: no symptoms. Genitourinary: Reports: no symptoms. Skin: Reports: no symptoms, see HPI, cysts, change in skin color, change in hair/nails , dryness, erythema, jaundice, lesions, lymphangitis, lumps, moles, rash. Objective Last 24 Hrs of Vital Signs/I&O Vital Signs Date Time Temp Pulse Resp B/P B/P Pulse O2 O2 Flow FiO2 Mean Ox Delivery Rate 12/12 1123 Nasal 2.0L Cannula 12/12 0726 96 Nasal 2.0L Cannula 12/12 0715 98.1 72 20 120/70 90 12/12 0000 92 Nasal 2.0L Cannula 12/11 2302 98.0 78 18 142/86 97 Nasal 2.0L Cannula 12/11 2216 97.1 79 18 138/67 12/11 1645 96 Nasal 2.0L Cannula 12/11 1454 97.7 77 20 160/81 91 Room Air Intake & Output 12/12 1600 12/12 0800 12/12 0000 Intake Total 120 450 Output Total 350 350 Balance -230 100 Intake, Oral 120 450 Output, Urine 350 350 Physical Exam General Appearance: Alert, Oriented X3, Cooperative Skin: No Rashes, No Significant Lesion Cardiovascular: Normal S1, Normal S2 Lungs: scattered ronchi Abdomen: Normal Bowel Sounds, Soft, No Tenderness Neurological: Normal Speech Current Medications: Current Medications Sig/Danni Start time Last Medication Dose Route Stop Time Status Admin Acetaminophen 650 MG Q6P PRN 12/11 0245 AC 12/12 PO 0640 Albuterol Sulfate 3 ML EVERY 4 HRS/AWAKE 12/08 1600 AC 12/12 INH 1123 Albuterol Sulfate 2 PUF Q6P PRN 12/07 2330 AC 12/10 INH 1731 Albuterol Sulfate 3 ML Q4P PRN 12/07 2330 AC 12/08 INH 1028 Apixaban 5 MG BID 12/07 2325 AC 12/11 PO 2215 Baclofen 20 MG BID 12/07 2327 AC 12/11 PO 2215 Bisacodyl 10 MG DAILY PRN 12/08 1400 AC 12/10 SC 1731 Doxycycline Hyclate 100 MG BID 12/07 2327 AC 12/11 PO 2215 Furosemide 60 MG Q48 12/09 1000 AC 12/11 PO 0911 Gabapentin 600 MG Q8H 12/08 0930 AC 12/12 PO 0043 Guaifenesin 1,200 MG BID 12/08 1000 AC 12/11 PO 2215 Lorazepam 1 MG BID PRN 12/07 2330 AC 12/11 PO 2216 Methylprednisolone 40 MG ONCE ONE 12/12 1115 DC 12/12 IV 12/12 1116 1145 Metoprolol Tartrate 12.5 MG BID 12/09 1200 AC 12/11 PO 2216 Montelukast Sodium 10 MG DAILY 12/08 1000 AC 12/11 PO 0911 Multivitamins 1 TAB DAILY 12/08 1000 AC 12/11 Therapeutic PO 0911 Nortriptyline HCl 10 MG QPM 12/08 2200 AC 12/11 PO 2216 Omeprazole 20 MG DAILY AC 12/08 0700 AC 12/12 PO 0736 Prednisone 10 MG DAILY 12/14 1000 AC PO 12/15 1001 Prednisone 20 MG DAILY 12/12 1000 AC PO 12/13 1001 Rifampin 300 MG DAILY 12/08 1000 AC 12/11 PO 0911 Sotalol HCl 80 MG BID 12/09 1000 AC 12/11 PO 2215 Tiotropium Saline 1 PUF DAILY 12/08 1000 AC 12/11 INH 0912 Trazodone HCl 50 MG .STK-MED ONE 12/11 2210 DC PO 12/11 2211 Trazodone HCl 50 MG QPM PRN 12/07 2345 AC 12/11 PO 2216 Last 24 Hrs of Lab/Bryan Results Last 24 Hrs of Labs/Mics: Laboratory Tests 12/12/16 1325: pH 7.32 L, pCO2 73 *H, pO2 72 L, HCO3 37 H, ABG O2 Sat (Measured) 93.0 L, P- 50 (Temp Corrected) Y, Carboxyhemoglobin 0.7 L, O2 Concentration % 35, Temperature 98.1, Respiration Rate 18, O2 Delivery Method BIPAP, Vent Mode ST, Expiratory Pressure 6, Inspiratory Pressure 12, Phlebotomy Draw Site RIGHT RADIAL 12/12/16 1025: pH 7.34 L, pCO2 70 *H, pO2 81, HCO3 36 H, ABG O2 Sat (Measured) 94.0 L, P-50 (Temp Corrected) Y, Carboxyhemoglobin 1.2 L, O2 Concentration % 2L, Temperature 98.1, O2 Delivery Method N/C, Phlebotomy Draw Site RIGHT RADIAL 12/12/16 0735: Anion Gap 5, Estimated GFR > 60, BUN/Creatinine Ratio 34.0 H, Phosphorus 2.6, Magnesium 2.0, CBC w Diff NO MAN DIFF REQ, RBC 4.01 L, MCV 91.1, MCH 29.0, RDW 15.1 H, MPV 7.9, Gran % 77.3 H, Lymphocytes % 14.4 L, Monocytes % 6.6, Eosinophils % 1.5, Basophils % 0.2, Absolute Granulocytes 11.6 H, Absolute Lymphocytes 2.2, Absolute Monocytes 1.0 H, Absolute Eosinophils 0.2, Absolute Basophils 0, PUBS MCHC 31.8 L Assessment/Plan Assessment: The pt is 66 year obese male with a history of COPD , bilateral lower extremity edema, HTN, hyperlipidemia, history of atrial fibrillation on Eliquis, asthma, neurogenic bladder, depression, chronic constipation, muscle spasms, JELANI, CAD s/ p stent placement, IVC filter placement, 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 He presented to the ED complaining of urinary leakage, malodorous urine , persistent cough since his last admission for pneumonia, and fever. CT findings 12/01 1. Obstructive lung disease with bibasilar dependent areas of lung parenchymal consolidation, left greater than right. Findings may be related to atelectasis with possible superimposed pneumonia in left lung base.Borderline mediastinal lymph nodes are likely reactive. 2. Small left pleural effusion. 3. Platelike atelectasis or scarring in the lingula. 4. Severe coronary artery calcifications. 5. Osteopenia with chronic 50% wedge compression deformity of T7 with partial fusion, focal kyphosis and secondary degenerative change as discussed above. Hospital-acquired pneumonia :CXR in ED showed left lower lobe infiltrate, cough has not resolved since admission and treatment for previous pneumonia.Previously culture positive for psuedomonas. Pt has persistently elevated WBC count despite IV antibiotics * CT scan findings above bibasiler atelectasis with possible superimposed pneumonia LL lung base * Lower respiratory cultures showed mixed ebenezer after 1 day and growth of gram- positive cocci. Holding off antibiotics for now as per ID continue with doxy and rifampin suppression therapy * Urine strep and Legionella negative COPD exacerbation * Continue prednisone taper 10 x 2 days * O2 nasal canula as needed * TRC consult * Albuterol * Montelukast 10 mg daily * f/u cbc possible UTI UA significant for UrWBC 10-15, LE small, trace proteins, negative ntirites. Pt has hx of neurogenic bladder with frequent straight catheterizations (3-5 times daily) * Foleys catheter in place * Follow-up urine cultures. * Being followed by Dr. Polk HTN patient's heart rate and blood pressure has been towards the higher side overnight. 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 Next dose 12/08 history of hyperlipidemia * Continue IM evolocumab every two weeks. Next dose 12/12 Patient does have a history of obstructive sleep apnea however denies use of CPAP adamantly Problem List: 1. COPD exacerbation Pain Ratin Pain Location: none Pain Goal: Pain 4 or less Pain Plan: n/a Tomorrow's Labs & Rationales: cbc bep abg Consulting Request: Consulting Specialty: Pulmonary Disease Consulting Physician: Kiran Bustillos MD
--- NOTE | 2016-12-12 10:59 | PN- Pulmonary ---
Subjective HPI/Critical Care Issues: Rapid response called this am for lethargy. Patient alert and oriented x 3 however sleepy. Hemodynamics and blood glucose were non-diagnostic. ABG performed showing 7.34/70. No cp, afebrile, 96% on 2LNC. Objective Current Medications: Current Medications Sig/Danni Start time Last Medication Dose Route Stop Time Status Admin Acetaminophen 650 MG Q6P PRN 12/11 0245 AC 12/12 PO 0640 Albuterol Sulfate 3 ML EVERY 4 HRS/AWAKE 12/08 1600 AC 12/12 INH 0725 Albuterol Sulfate 2 PUF Q6P PRN 12/07 2330 AC 12/10 INH 1731 Albuterol Sulfate 3 ML Q4P PRN 12/07 2330 AC 12/08 INH 1028 Apixaban 5 MG BID 12/07 2325 AC 12/11 PO 2215 Baclofen 20 MG BID 12/07 2327 AC 12/11 PO 2215 Bisacodyl 10 MG DAILY PRN 12/08 1400 AC 12/10 AL 1731 Doxycycline Hyclate 100 MG BID 12/07 2327 AC 12/11 PO 2215 Furosemide 60 MG Q48 12/09 1000 AC 12/11 PO 0911 Gabapentin 600 MG Q8H 12/08 0930 AC 12/12 PO 0043 Guaifenesin 1,200 MG BID 12/08 1000 AC 12/11 PO 2215 Lorazepam 1 MG BID PRN 12/07 2330 AC 12/11 PO 2216 Metoprolol Tartrate 12.5 MG BID 12/09 1200 AC 12/11 PO 2216 Montelukast Sodium 10 MG DAILY 12/08 1000 AC 12/11 PO 0911 Multivitamins 1 TAB DAILY 12/08 1000 AC 12/11 Therapeutic PO 0911 Nortriptyline HCl 10 MG QPM 12/08 2200 AC 12/11 PO 2216 Omeprazole 20 MG DAILY AC 12/08 0700 AC 12/12 PO 0736 Prednisone 10 MG DAILY 12/14 1000 AC PO 12/15 1001 Prednisone 20 MG DAILY 12/12 1000 AC PO 12/13 1001 Rifampin 300 MG DAILY 12/08 1000 AC 12/11 PO 0911 Sotalol HCl 80 MG BID 12/09 1000 AC 12/11 PO 2215 Tiotropium [place] 1 PUF DAILY 12/08 1000 AC 12/11 INH 0912 Trazodone HCl 50 MG .STK-MED ONE 12/11 2209 DC PO 12/11 2210 Trazodone HCl 50 MG QPM PRN 12/07 2345 AC 12/11 PO 221 Vital Signs & I&O Last 24 Hrs of Vitals and I&O: Vital Signs Date Time Temp Pulse Resp B/P B/P Pulse O2 O2 Flow FiO2 Mean Ox Delivery Rate 12/12 0726 96 Nasal 2.0L Cannula 12/12 0715 98.1 72 20 120/70 90 12/12 0000 92 Nasal 2.0L Cannula 12/11 2302 98.0 78 18 142/86 97 Nasal 2.0L Cannula 12/11 2216 97.1 79 18 138/67 12/11 1645 96 Nasal 2.0L Cannula 12/11 1454 97.7 77 20 160/81 91 Room Air Intake & Output 12/12 1600 12/12 0800 12/12 0000 Intake Total 120 450 Output Total 350 350 Balance -230 100 Intake, Oral 120 450 Output, Urine 350 350 Exam Other Physical Findings: gen alert, drowsy heent large neck cvs s1, s2 lungs rare rhonchi abd obese ext no edema Results Last 24 Hrs of Lab Results: Laboratory Tests 12/12/16 1025: pH 7.34 L, pCO2 70 *H, pO2 81, HCO3 36 H, ABG O2 Sat (Measured) 94.0 L, P-50 (Temp Corrected) Y, Carboxyhemoglobin 1.2 L, O2 Concentration % 2L, Temperature 98.1, O2 Delivery Method N/C, Phlebotomy Draw Site RIGHT RADIAL 12/12/16 0735: Anion Gap 5, Estimated GFR > 60, BUN/Creatinine Ratio 34.0 H, Phosphorus 2.6, Magnesium 2.0, CBC w Diff NO MAN DIFF REQ, RBC 4.01 L, MCV 91.1, MCH 29.0, RDW 15.1 H, MPV 7.9, Gran % 77.3 H, Lymphocytes % 14.4 L, Monocytes % 6.6, Eosinophils % 1.5, Basophils % 0.2, Absolute Granulocytes 11.6 H, Absolute Lymphocytes 2.2, Absolute Monocytes 1.0 H, Absolute Eosinophils 0.2, Absolute Basophils 0, PUBS MCHC 31.8 L Impression/Plan Impression/Plan Impression/Plan: Impression 66 year old man * HCAP * exacerbation of COPD * acute hypercarbic respiratory failure secondary to COPD and possibley underlying OHS * atelectasis Plan -bipap trial for 2 hrs -repeat abg at that time -if does well, then check abg in am on room air to evaluate for co2 retention and need for bipap, if >60 co2 can be considered for nocturnal bipap tx -cont current abx -would give solumedrol 40mg iv once and reassess, cont otherwise taper -TRC/Nebs DVT prophylaxis at all times
--- NOTE | 2016-12-12 11:02 | Patient Discharge Instructions ---
Discharge Instructions General Discharge Information You were seen/treated for: COPD Pneumonia Watch for these problems: fever increasing shortness of breath increasing cough or sputum production drowsiness Special Instructions: 1. Follow up with PCP in one week 2. Repeat MRI of the thoracolumbar spine 3. Follow up with Tressa in one week 4. Consider sleep study and cpap vs bipap 5. Beware of drowsy meds like Ativan 6. Continue steriod taper 7. Keep li in place and follow up with Dr. Polk for urodynamic studies Diet Recommended Diet: Heart Healthy Activity Activity Self Limited: Yes Acute Coronary Syndrome Inclusion Criteria At DC or during hospital stay patient has or had the following: ACS DIAGNOSIS No Discharge Core Measures Meds if any: Prescribed or Continued at Discharge Meds if any: NOT Prescribed or Continued at Discharge Congestive Heart Failure Inclusion Criteria At DC or during hospital stay patient has or had the following: CHF DIAGNOSIS No Discharge Core Measures Meds if any: Prescribed or Continued at Discharge Meds if any: NOT Prescribed or Continued at Discharge Cerebrovascular accident Inclusion Criteria At DC or during hospital stay patient has or had the following: CVA/TIA Diagnosis No Discharge Core Measures Meds if any: Prescribed or Continued at Discharge Meds if any: NOT Prescribed or Continued at Discharge Venous thromboembolism Inclusion Criteria VTE Diagnosis No VTE Type NONE VTE Confirmed by (Test) NONE Discharge Core Measures - Per Current guidelines, there needs to be overlap - treatment for the first 5 days of Warfarin therapy. - If discharged on Warfarin prior to 5 days of - overlap therapy, the patient will need to be - assessed for post discharge needs including - *Post discharge parental anticoagulation - *Warfarin and/or parental anticoagulation education - *Follow up date to check INR post discharge At least 5 days overlap therapy as Inpatient No Meds if any: Prescribed or Continued at Discharge Note: Overlap Therapy is Warfarin and Anticoagulant Meds if any: NOT Prescribed or Continued at Discharge
--- NOTE | 2016-12-12 11:04 | PN- Housestaff ---
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 He presented to the ED complaining of urinary leakage, malodorous urine , persistent cough since his last admission for pneumonia, and fever. CT findings 12/01 1. Obstructive lung disease with bibasilar dependent areas of lung parenchymal consolidation, left greater than right. Findings may be related to atelectasis with possible superimposed pneumonia in left lung base.Borderline mediastinal lymph nodes are likely reactive. 2. Small left pleural effusion. 3. Platelike atelectasis or scarring in the lingula. 4. Severe coronary artery calcifications. 5. Osteopenia with chronic 50% wedge compression deformity of T7 with partial fusion, focal kyphosis and secondary degenerative change as discussed above. Hospital-acquired pneumonia :CXR in ED showed left lower lobe infiltrate, cough has not resolved since admission and treatment for previous pneumonia.Previously culture positive for psuedomonas. Pt has persistently elevated WBC count despite IV antibiotics * CT scan findings above bibasiler atelectasis with possible superimposed pneumonia LL lung base * Discontinue Ceftazidime as per ID recommendations * Azithromycin discontinued as per ID recommendations * Lower respiratory cultures showed mixed ebenezer after 1 day and growth of gram- positive cocci. Holding off antibiotics for now as per ID continue with doxy and rifampin suppression therapy * Urine strep and Legionella negative COPD exacerbation * Continue prednisone taper 40 x 2 days, 30 x 2 days, 20 x 2 days, 10 x 2 days * O2 nasal canula as needed * TRC consult * Albuterol * Montelukast 10 mg daily * f/u cbc possible UTI UA significant for UrWBC 10-15, LE small, trace proteins, negative ntirites. Pt has hx of neurogenic bladder with frequent straight catheterizations (3-5 times daily) * Foleys catheter in place * Follow-up urine cultures. * Being followed by Dr. Polk HTN patient's heart rate and blood pressure has been towards the higher side overnight. 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 Next dose 12/08 history of hyperlipidemia * Continue IM evolocumab every two weeks. Next dose 12/12 Patient does have a history of obstructive sleep apnea however denies use of CPAP adamantly Consulting Request: Consulting Specialty: Pulmonary Disease Consulting Physician: Kiran Bustillos MD
--- NOTE | 2016-12-12 11:04 | Event Note ---
Event Note Event Note: S: heard overhead announcement of rapid response in 213 around 10.30 B: Mr. Jak Park is a 66 yo male admitted for pnuemonia and COPD was found to be unresponsive AR I went to assess, the pt. Mr. Jak Park is my patient on 2L home oxygen nasal cannula I had seen and examined him early in the morning around 6 AM when he was doing ok. Rapid response was called on him because he was unresponsive. His partner alerted the nurses when he thought that he was not making sense and was unresponsive. Dr. Paez and Dr. Sanders were already there and they were assessing the patient. The patient was alert 3. He he said that he is very drowsy and wants to sleep. His morning labs were reviewed and ABG EKG and chest x-ray were ordered. I performed a physical examination on him. He was alert and oriented 3. He was following my commands. There was no drooping of face on one side. Sensations were intact. Motor strength was 5 out of 5 in upper extremities. He is paraplegic. The Babinski was negative. His ABG showed PCO2 of 72. He was likely retaining carbon dioxide because of his underlying COPD. His chest x-ray was same and his EKG showed did not show any changes. He was started on BiPAP. We are going to repeat ABGs in the p.m. for now we are going to keep and keep him on BiPAP and later assess if he can we be weaned down to nasal cannula oxygen
--- NOTE | 2016-12-12 12:17 | RADIOLOGY REPORT ---
EXAMINATION: XR PORTABLE CHEST CLINICAL INFORMATION: Altered mental status. Somnolence. COMPARISON: Chest done on 12/07/2016. TECHNIQUE: Portable frontal view of the chest was obtained. FINDINGS: Low lung volume is present bilaterally. Persistent stable nonspecific bibasilar airspace disease is present. This may represent hypoventilatory, atelectatic changes, infiltrate, pleural parenchymal scar or combination thereof. The remainder of the aerated lung sparks appear unremarkable. The cardiomediastinal silhouette is mildly to moderately enlarged. No radiographic evidence of CHF or definite pleural effusion, unchanged. IMPRESSION: No significant change since 12/07/2016.
--- NOTE | 2016-12-12 12:57 | PN- Infect Dx ---
Subjective Subjective: No fever. Rapid response called this am for lethargy; clinically improved while on BiPAP. Denies cough. Feels hungry. Review of Systems Comments: 12 points reviewed as noted, otherwise negative. Objective Last 24 Hrs of Vital Signs/I&O Vital Signs Date Time Temp Pulse Resp B/P B/P Pulse O2 O2 Flow FiO2 Mean Ox Delivery Rate 12/12 1123 Nasal 2.0L Cannula 12/12 0726 96 Nasal 2.0L Cannula 12/12 0715 98.1 72 20 120/70 90 12/12 0000 92 Nasal 2.0L Cannula 12/11 2302 98.0 78 18 142/86 97 Nasal 2.0L Cannula 12/11 2216 97.1 79 18 138/67 12/11 1645 96 Nasal 2.0L Cannula 12/11 1454 97.7 77 20 160/81 91 Room Air Intake & Output 12/12 1600 12/12 0800 12/12 0000 Intake Total 120 450 Output Total 350 350 Balance -230 100 Intake, Oral 120 450 Output, Urine 350 350 Physical Exam Other Physical Findings: General Appearance Elevated BMI , Cooperative, No Acute Distress Skin No Rashes, Pale HEENT Atraumatic, EOMI, Mucous Membr. moist/pink Neck Supple, No PRISCILLA Lymphatic Cervical nl Cardiovascular S1 S2 present Lungs BS present, no rales, few b/l rhonchi, no wheezing Abdomen Protuberant Bowel Sounds, Soft, protuberant Neurological Normal Speech, Cranial Nerves 3-12 NL, Alert, Oriented X3 Extremities +edema of the lower extremities B/L (L>R) Results Last 24 Hours of Lab Results: Laboratory Tests 12/12 12/12 1025 0735 Blood Gas pH (7.35 - 7.45 PH) 7.34 L pCO2 (35 - 45 TORR) 70 *H pO2 (80 - 100 TORR) 81 HCO3 (21 - 28 MEQ/L) 36 H ABG O2 Sat (Measured) (>96.0 %) 94.0 L P-50 (Temp Corrected) Y Carboxyhemoglobin (1.5 - 5.0 %) 1.2 L O2 Concentration % 2L Temperature (97.0 - 100.0 FARH) 98.1 O2 Delivery Method N/C Chemistry Sodium (137 - 145 mmol/L) 135 L Potassium (3.5 - 5.1 mmol/L) 4.0 Chloride (98 - 107 mmol/L) 94 L Carbon Dioxide (22 - 30 mmol/L) 36 H Anion Gap (5 - 16) 5 BUN (9 - 20 mg/dL) 17 Creatinine (0.7 - 1.2 mg/dL) 0.5 L Estimated GFR (>60 ml/min) > 60 BUN/Creatinine Ratio (7 - 25 %) 34.0 H Phosphorus (2.5 - 4.5 mg/dL) 2.6 Magnesium (1.6 - 2.3 mg/dL) 2.0 Hematology CBC w Diff NO MAN DIFF REQ WBC (4.8 - 10.8 /CUMM) 15.0 H RBC (4.70 - 6.10 /CUMM) 4.01 L Hgb (14.0 - 18.0 G/DL) 11.6 L Hct (42 - 52 %) 36.5 L MCV (80.0 - 94.0 FL) 91.1 MCH (27.0 - 31.0 PG) 29.0 RDW (11.5 - 14.5 %) 15.1 H Plt Count (130 - 400 /CUMM) 338 MPV (7.4 - 10.4 FL) 7.9 Gran % (42.2 - 75.2 %) 77.3 H Lymphocytes % (20.5 - 51.1 %) 14.4 L Monocytes % (1.7 - 9.3 %) 6.6 Eosinophils % (0 - 5 %) 1.5 Basophils % (0.0 - 2.0 %) 0.2 Absolute Granulocytes (1.4 - 6.5 /CUMM) 11.6 H Absolute Lymphocytes (1.2 - 3.4 /CUMM) 2.2 Absolute Monocytes (0.10 - 0.60 /CUMM) 1.0 H Absolute Eosinophils (0.0 - 0.7 /CUMM) 0.2 Absolute Basophils (0.0 - 0.2 /CUMM) 0 PUBS MCHC (33.0 - 37.0 G/DL) 31.8 L Miscellaneous Phlebotomy Draw Site RIGHT RADIAL Last 24 Hours of Bryan Results: tyent : ESTUARDO PEREZ Acct: [id number] DR: VALDEZ VOGEL,MCKENNA Birthdate: [birth year] Age/Sex: 66/M Unit: [id number] Loc: [facility] [phone] Status : ADM IN SPEC #: [id number] NATAN: 12/10/16 STATUS: RES RECD: 12/10/[address]: VALDEZ VOGEL,MCKENNA SOURCE: LOWER RESP ENTR: 12/10/[address] JOHN VOGEL, [facility]UMNST[facility]'S MCCALLAMALIAIngris SPDESC: SPUTUM STACI VOGEL,LALA Gray ORDERED: LOWER RESPIRATO Procedure Result > GRAM STAIN Final 12/11/16143 WHITE BLOOD CELLS RARE SQUAMOUS CELLS RARE GRAM POSITIVE COCCI RARE GRAM NEGATIVE COCCI FEW GRAM POSITIVE RODS RARE OTHER RARE BUDDING YEAST > LOWER RESPIRATORY CULTURE Preliminary 12/12/16-1012 Mixed eebnezer after 2 dayS Light growth of: GRAM POSITIVE COCCI Identification and sensitivities to follow Scant growth of : YEAST Recent Imaging Studies: SERVICE DATE: 12/12/16 EXAM TYPE: RAD - XRY-PORTABLE CHEST XRAY EXAMINATION: XR PORTABLE CHEST CLINICAL INFORMATION: Altered mental status. Somnolence. COMPARISON: Chest done on 12/07/2016. TECHNIQUE: Portable frontal view of the chest was obtained. FINDINGS: Low lung volume is present bilaterally. Persistent stable nonspecific bibasilar airspace disease is present. This may represent hypoventilatory, atelectatic changes, infiltrate, pleural parenchymal scar or combination thereof. The remainder of the aerated lung sparks appear unremarkable. The cardiomediastinal silhouette is mildly to moderately enlarged. No radiographic evidence of CHF or definite pleural effusion, unchanged. IMPRESSION: No significant change since 12/07/2016. 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 Eval recurrent UTI; h/o neurogenic bladder on straight cath protocol, recetly treated w/ Cipro; of note UC no growth to date. COPD exacerbation; eval LLL pneumonia; h/o Ps.aeruginosa (pansensitive) lung infection; sputum cx + mixed ebenezer + GPC ID and sensitivity pending; iv abx (Ceftaz/azithro ) stopped previous day as CT chest negative pneumonia; repeat CXR results from today noted Leukocytosis; WBC trending up (likely related to steroid tx vs lung infection) Suggestion: 1. Repeat sputum cx today. Please call if fever or hypotension. 2. Cont suppressive abx treatment with rifampin/doxycycline. MRI thoracic spine as OP to eval residual abscess if patient has persistent leukocytosis after tapering off steroids. 3. Trend CBC, BMP. 4. F/u pulm recommendations.
--- NOTE | 2016-12-12 13:58 | NUR ---
1010 PATIENT DROWSY/AROUSABLE, THEN DRIFTS OUT OF CONSCIOUSNESS. ALERT TO SELF, STATES "I'M AT [facility]" WHEN ASKED. EQUALY STRONG HAND GRASPS, POSITIVE SENSATION AND MOTION TO BILAT FEET, NO DRIFT NOTED TO ARMS, DENIES FACIAL DROOP, VSS CHARTED. RAPID RESPONSE CALLED. RESIDENT JOSIAS AND OTHER MEDICAL STAFF PRESENT IN THE ROOM, RESPIRATORY THERAPY PRESENT AND DRAWIONG ABG'S. EKG DONE ORDERED. PARIENT PLACED IN BIPAP BY RESPIRATORY THERAPIST. 1130 PATIENT REMAINS ON BIPAP, A+O X3, APPROPRIATE ANSWERS. 1330 RESPIRATORY THERAPY IN THE RROM WITH THE PATIENT, DRAWING NEW ABS'S, PATIENT REMAINS ON BIPAP, NO S/O DISTRESS NOTED.
[2016-12-12 14:50] VITALS: BP 146/86
[2016-12-12 22:47] VITALS: BP 114/80
[2016-12-13] VITALS: BP 147/85
[2016-12-13 07:37] VITALS: BP 160/82
[2016-12-13 08:19] LABS: ABSOLUTE BASOPHIL COUNT 0 /CUMM (0.0-0.2); ABSOLUTE EOSINOPHIL COUNT 0.3 /CUMM (0.0-0.7); ABSOLUTE LYMPH COUNT 2.1 /CUMM (1.2-3.4); ABSOLUTE MONOCYTE COUNT 1.1 /CUMM (0.10-0.60); EOSINOPHIL % 1.5 % (0-5)
[2016-12-13 08:25] LABS: ABSOLUTE GRANULOCYTE CT 13.1 /CUMM (1.4-6.5); BASOPHIL % 0.3 % (0.0-2.0); GRANULOCYTE % 79.1 % (42.2-75.2); HEMATOCRIT 37.8 % (42-52); MEAN CORPUSCULAR HGB 29.1 PG (27.0-31.0); MEAN CORPUSCULAR HGB CONC 32.1 G/DL (33.0-37.0); MEAN CORPUSCULAR VOLUME 90.7 FL (80.0-94.0); MEAN PLATELET VOLUME 8.1 FL (7.4-10.4); PLATELET COUNT 338 /CUMM (130-400); RBC DISTRIBUTION WIDTH 15.4 % (11.5-14.5); RED BLOOD CELL CT 4.17 /CUMM (4.70-6.10); WHITE BLOOD CELL COUNT 16.6 /CUMM (4.8-10.8)
--- NOTE | 2016-12-13 08:35 | PN- Housestaff ---
Subjective Follow-up For: COPD exacerbation Subjective: I have seen and examined the patient. The patient was lying comfortably in the bed. He is currently on BiPAP and was on it whole night. Yesterday a rapid response was called on him because he was very lethargic, he was alert oriented Right now he is feels much better. There were no overnight acute events. He denies any chest pain or palpitations. Review of Systems Constitutional: Denies: chills, diaphoresis, fever. EENTM: Reports: no symptoms. Cardiovascular: Denies: chest pain, palpitations. Respiratory: Reports: cough, short of breath, sputum production. Gastrointestinal: Reports: no symptoms. Genitourinary: Reports: no symptoms. Objective Last 24 Hrs of Vital Signs/I&O Vital Signs Date Time Temp Pulse Resp B/P B/P Pulse O2 O2 Flow FiO2 Mean Ox Delivery Rate 12/13 0833 92 Nasal 3.0L Cannula 12/13 0827 72 93 12/13 0737 97.4 75 20 160/82 94 12/13 0614 76 97 12/13 0000 BIPAP 12/13 0000 71 18 147/85 95 Nasal 4.0L Cannula 12/12 2252 89 93 12/12 2247 98.9 81 22 114/80 99 BIPAP 12/12 2150 81 114/80 12/12 1918 81 97 12/12 1717 96 BIPAP 35% 12/12 1659 95 97 12/12 1600 95 BIPAP 35% 12/12 1450 97.5 85 20 146/86 94 BIPAP 12/12 1123 Nasal 2.0L Cannula Intake & Output 12/13 1600 12/13 0800 12/13 0000 Intake Total 480 240 Output Total 350 250 Balance 130 -10 Intake, Oral 480 240 Number 1 Bowel Movements Output, Urine 350 250 Physical Exam General Appearance: Alert, Oriented X3, Cooperative Skin: No Rashes, No Breakdown Cardiovascular: Normal S1, Normal S2 Lungs: scattered ronchi and few wheezes with prolonged expiration Abdomen: Normal Bowel Sounds, Soft, No Tenderness Neurological: Normal Speech Extremities: paraplegic Current Medications: Current Medications Sig/Danni Start time Last Medication Dose Route Stop Time Status Admin Acetaminophen 650 MG Q6P PRN 12/11 0245 AC 12/12 PO 0640 Albuterol Sulfate 3 ML EVERY 4 HRS/AWAKE 12/08 1600 AC 12/13 INH 0827 Albuterol Sulfate 2 PUF Q6P PRN 12/07 2330 AC 12/10 INH 1731 Albuterol Sulfate 3 ML Q4P PRN 12/07 2330 AC 12/08 INH 1028 Apixaban 5 MG BID 12/07 2325 AC 12/12 PO 2150 Baclofen 20 MG BID 12/07 2327 AC 12/12 PO 2149 Bisacodyl 10 MG DAILY PRN 12/08 1400 AC 12/10 TX 1731 Doxycycline Hyclate 100 MG BID 12/07 2327 AC 12/12 PO 2150 Furosemide 60 MG Q48 12/09 1000 AC 12/11 PO 0911 Gabapentin 300 MG Q8H 12/12 1730 AC 12/13 PO 0211 Gabapentin 600 MG Q8H 12/08 0930 DC 12/12 PO 0043 Guaifenesin 1,200 MG BID 12/08 1000 AC 12/12 PO 2150 Lorazepam 1 MG BID PRN 12/07 2330 AC 12/12 PO 2150 Methylprednisolone 40 MG ONCE ONE 12/12 1515 CAN IV 12/12 1516 Methylprednisolone 40 MG ONCE ONE 12/12 1115 DC 12/12 IV 12/12 1116 1145 Metoprolol Tartrate 12.5 MG BID 12/09 1200 AC 12/12 PO 2150 Montelukast Sodium 10 MG DAILY 12/08 1000 AC 12/11 PO 0911 Multivitamins 1 TAB DAILY 12/08 1000 AC 12/11 Therapeutic PO 0911 Nortriptyline HCl 10 MG QPM 12/08 2200 AC 12/12 PO 2150 Omeprazole 20 MG DAILY AC 12/08 0700 AC 12/13 PO 0604 Prednisone 10 MG DAILY 12/14 1000 AC PO 12/15 1001 Prednisone 20 MG DAILY 12/12 1000 AC PO 12/13 1001 Rifampin 300 MG DAILY 12/08 1000 AC 12/11 PO 0911 Sotalol HCl 80 MG BID 12/09 1000 AC 12/12 PO 2150 Tiotropium Tigrett 1 PUF DAILY 12/08 1000 AC 12/11 INH 0912 Trazodone HCl 50 MG .STK-MED ONE 12/12 2145 DC PO 12/12 2146 Trazodone HCl 50 MG QPM PRN 12/07 2345 AC 12/12 PO 2150 Last 24 Hrs of Lab/Bryan Results Last 24 Hrs of Labs/Mics: Laboratory Tests 12/13/16 0710: Anion Gap 5, Estimated GFR > 60, BUN/Creatinine Ratio 32.0 H, CBC w Diff Pending, WBC Pending, RBC Pending, Hgb Pending, Hct Pending, MCV Pending, MCH Pending, RDW Pending, Plt Count Pending, MPV Pending, PUBS MCHC Pending 12/12/16 1625: pH 7.36, pCO2 67 *H, pO2 76 L, HCO3 37 H, ABG O2 Sat (Measured) 95.0 L, Carboxyhemoglobin 1.0 L, O2 Concentration % 35%, O2 Delivery Method BIPAP, Phlebotomy Draw Site RIGHT RADIAL 12/12/16 1325: pH 7.32 L, pCO2 73 *H, pO2 72 L, HCO3 37 H, ABG O2 Sat (Measured) 93.0 L, P- 50 (Temp Corrected) Y, Carboxyhemoglobin 0.7 L, O2 Concentration % 35, Temperature 98.1, Respiration Rate 18, O2 Delivery Method BIPAP, Vent Mode ST, Expiratory Pressure 6, Inspiratory Pressure 12, Phlebotomy Draw Site RIGHT RADIAL 12/12/16 1025: pH 7.34 L, pCO2 70 *H, pO2 81, HCO3 36 H, ABG O2 Sat (Measured) 94.0 L, P-50 (Temp Corrected) Y, Carboxyhemoglobin 1.2 L, O2 Concentration % 2L, Temperature 98.1, O2 Delivery Method N/C, Phlebotomy Draw Site RIGHT RADIAL Microbiology 12/13 833 LOWER RESP: Respiratory Culture - ORD 12/13 833 LOWER RESP: Gram Stain - ORD Assessment/Plan Assessment: The pt is 66 year obese male with a history of COPD , bilateral lower extremity edema, HTN, hyperlipidemia, history of atrial fibrillation on Eliquis, asthma, neurogenic bladder, depression, chronic constipation, muscle spasms, JELANI, CAD s/ p stent placement, IVC filter placement, 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 He presented to the ED complaining of urinary leakage, malodorous urine , persistent cough since his last admission for pneumonia, and fever. CT findings 12/01 1. Obstructive lung disease with bibasilar dependent areas of lung parenchymal consolidation, left greater than right. Findings may be related to atelectasis with possible superimposed pneumonia in left lung base.Borderline mediastinal lymph nodes are likely reactive. 2. Small left pleural effusion. 3. Platelike atelectasis or scarring in the lingula. 4. Severe coronary artery calcifications. 5. Osteopenia with chronic 50% wedge compression deformity of T7 with partial fusion, focal kyphosis and secondary degenerative change as discussed above. Hospital-acquired pneumonia sputum positive for enterococcus and yeast.:CXR in ED showed left lower lobe infiltrate, cough has not resolved since admission and treatment for previous pneumonia.Previously culture positive for psuedomonas. Pt has persistently elevated WBC count despite IV antibiotics * CT scan findings above bibasiler atelectasis with possible superimposed pneumonia LL lung base * Lower respiratory cultures showed mixed ebenezer after 1 day and growth of gram- positive cocci likely colonization * Holding off antibiotics for now as per ID. continue with doxy and rifampin suppression therapy * Urine strep and Legionella negative COPD exacerbation on 12/09 rapid response was called because the patient was lethargic he was alert and oriented 3. ABG showed respiratory acidosis with PCo2 of72 the patient was put on BiPAP. Repeat ABG shows PCO2 of 67. * An ABG has been ordered for this morning. We will check the results and then consider giving the patient a trial off BiPAP. * Monitor respiratory status closely. * Discontinue Ativan, avoid oversedation. * Continue prednisone taper 10 x 2 days * TRC * Albuterol * Montelukast 10 mg daily Possible UTI UA significant for UrWBC 10-15, LE small, trace proteins, negative ntirites. Pt has hx of neurogenic bladder with frequent straight catheterizations (3-5 times daily) * Foleys catheter in place * Follow-up urine cultures no growth HTN patient's heart rate and blood pressure has been towards the higher side overnight. 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 Next dose 12/08 Hyperlipidemia * Continue IM evolocumab every two weeks. Next dose 12/12 obstructive sleep apnea Patient does have a history of obstructive sleep apnea * however denies use of CPAP adamantly Problem List: 1. Pneumonia 2. Gram-negative pneumonia 3. COPD (chronic obstructive pulmonary disease) Pain Ratin Pain Location: n/a Pain Goal: Pain 4 or less Pain Plan: n/a Tomorrow's Labs & Rationales: cbc bep Consulting Request: Consulting Specialty: Pulmonary Disease Consulting Physician: Kiran Bustillos MD
--- NOTE | 2016-12-13 08:48 | PN- Pulmonary ---
Subjective HPI/Critical Care Issues: Weekend events noted. On Tuesday, the patient was awake and alert without any symptoms. He was feeling back to his baseline and was anticipating discharge and Tuesday. Tuesday evening, the patient received both Ativan, which was newly ordered for increased anxiety, and his usual dose of trazodone. Tuesday morning, rapid response was called as the patient was noted to be lethargic. An ABG demonstrated mild respiratory acidosis. The patient was placed on BiPAP. He is feeling improved this morning, however he did get the combination of Ativan and trazodone once again last night. He denies any cough, chest congestion, sputum production, fever or chills. His wheezing has improved. Chest x-ray showed low lung volumes, and persistent bilateral airspace disease. Objective Current Medications: Current Medications Sig/Danni Start time Last Medication Dose Route Stop Time Status Admin Acetaminophen 650 MG Q6P PRN 12/11 0245 AC 12/12 PO 0640 Albuterol Sulfate 3 ML EVERY 4 HRS/AWAKE 12/08 1600 AC 12/13 INH 0827 Albuterol Sulfate 2 PUF Q6P PRN 12/07 2330 AC 12/10 INH 1731 Albuterol Sulfate 3 ML Q4P PRN 12/07 2330 AC 12/08 INH 1028 Apixaban 5 MG BID 12/07 232 AC 12/12 PO 2150 Baclofen 20 MG BID 12/07 2327 AC 12/12 PO 2149 Bisacodyl 10 MG DAILY PRN 12/08 1400 AC 12/10 MD 1731 Doxycycline Hyclate 100 MG BID 12/07 2327 AC 12/12 PO 2150 Furosemide 60 MG Q48 12/09 1000 AC 12/11 PO 0911 Gabapentin 300 MG Q8H 12/12 1730 AC 12/13 PO 0211 Gabapentin 600 MG Q8H 12/08 0930 DC 12/12 PO 0043 Guaifenesin 1,200 MG BID 12/08 1000 AC 12/12 PO 2150 Lorazepam 1 MG BID PRN 12/07 2330 AC 12/12 PO 2150 Methylprednisolone 40 MG ONCE ONE 12/12 1515 CAN IV 12/12 1516 Methylprednisolone 40 MG ONCE ONE 12/12 1115 DC 12/12 IV 12/12 1116 1145 Metoprolol Tartrate 12.5 MG BID 12/09 1200 AC 12/12 PO 2150 Montelukast Sodium 10 MG DAILY 12/08 1000 AC 12/11 PO 0911 Multivitamins 1 TAB DAILY 12/08 1000 AC 12/11 Therapeutic PO 0911 Nortriptyline HCl 10 MG QPM 12/08 2200 AC 12/12 PO 2150 Omeprazole 20 MG DAILY AC 12/08 0700 AC 12/13 PO 0604 Prednisone 10 MG DAILY 12/14 1000 AC PO 12/15 1001 Prednisone 20 MG DAILY 12/12 1000 AC PO 12/13 1001 Rifampin 300 MG DAILY 12/08 1000 AC 12/11 PO 0911 Sotalol HCl 80 MG BID 12/09 1000 AC 12/12 PO 2150 Tiotropium [place] 1 PUF DAILY 12/08 1000 AC 12/11 INH 0912 Trazodone HCl 50 MG .ST-MED ONE 12/12 214 DC PO 12/12 214 Trazodone HCl 50 MG QPM PRN 12/07 2345 AC 12/12 PO 2150 Vital Signs & I&O Last 24 Hrs of Vitals and I&O: Vital Signs Date Time Temp Pulse Resp B/P B/P Pulse O2 O2 Flow FiO2 Mean Ox Delivery Rate 12/13 0827 72 93 12/13 0737 97.4 75 20 160/82 94 12/13 0614 76 97 12/13 0000 BIPAP 12/13 0000 71 18 147/85 95 Nasal 4.0L Cannula 12/12 2252 89 93 12/12 2247 98.9 81 22 114/80 99 BIPAP 12/12 2150 81 114/80 12/12 1918 81 97 12/12 1717 96 BIPAP 35% 12/12 1659 95 97 12/12 1600 95 BIPAP 35% 12/12 1450 97.5 85 20 146/86 94 BIPAP 12/12 1123 Nasal 2.0L Cannula Intake & Output 12/13 1600 12/13 0800 12/13 0000 Intake Total 480 240 Output Total 350 250 Balance 130 -10 Intake, Oral 480 240 Number 1 Bowel Movements Output, Urine 350 250 Exam General Appearance: alert, awake, comfortable, on BIPAP Head: atraumatic, normal appearance Neck: supple Respiratory: quiet respiration, decreased breath sounds, mminimal wheezing Cardiovascular: irregularly irregular Abdomen: normal bowel sounds, soft, non-tender Extremities: trace chronic bilateral edema Skin: intact, normal color, warm/dry Results Last 24 Hrs of Lab Results: Laboratory Tests 12/13/16 0710: Sodium Pending, Potassium Pending, Chloride Pending, Carbon Dioxide Pending, Anion Gap Pending, BUN Pending, Creatinine Pending, BUN/Creatinine Ratio Pending , CBC w Diff Pending, WBC Pending, RBC Pending, Hgb Pending, Hct Pending, MCV Pending, MCH Pending, RDW Pending, Plt Count Pending, MPV Pending, PUBS MCHC Pending 12/12/16 1625: pH 7.36, pCO2 67 *H, pO2 76 L, HCO3 37 H, ABG O2 Sat (Measured) 95.0 L, Carboxyhemoglobin 1.0 L, O2 Concentration % 35%, O2 Delivery Method BIPAP, Phlebotomy Draw Site RIGHT RADIAL 12/12/16 1325: pH 7.32 L, pCO2 73 *H, pO2 72 L, HCO3 37 H, ABG O2 Sat (Measured) 93.0 L, P- 50 (Temp Corrected) Y, Carboxyhemoglobin 0.7 L, O2 Concentration % 35, Temperature 98.1, Respiration Rate 18, O2 Delivery Method BIPAP, Vent Mode ST, Expiratory Pressure 6, Inspiratory Pressure 12, Phlebotomy Draw Site RIGHT RADIAL 12/12/16 1025: pH 7.34 L, pCO2 70 *H, pO2 81, HCO3 36 H, ABG O2 Sat (Measured) 94.0 L, P-50 (Temp Corrected) Y, Carboxyhemoglobin 1.2 L, O2 Concentration % 2L, Temperature 98.1, O2 Delivery Method N/C, Phlebotomy Draw Site RIGHT RADIAL Diagnostic Data CT Scan Findings: 1. Obstructive lung disease with bibasilar dependent areas of lung parenchymal consolidation, left greater than right. Findings may be related to atelectasis with possible superimposed pneumonia in left lung base. Borderline mediastinal lymph nodes are likely reactive. 2. Small left pleural effusion. 3. Platelike atelectasis or scarring in the lingula. 4. Severe coronary artery calcifications. 5. Osteopenia with chronic 50% wedge compression deformity of T7 with partial fusion, focal kyphosis and secondary degenerative change as discussed above. Impression/Plan Impression/Plan Impression/Plan: 1. Acute on chronic hypercarbic respiratory failure, secondary to oversedation, noting the patient received both trazodone and newly ordered Ativan prior to this event. He also has a component of underlying obesity hypoventilation syndrome however he has been intolerant to nasal CPAP in the past. 2. Healthcare associated pneumonia, sputum positive for enterococcus and yeast. 3. Exacerbation of COPD. 4. Atelectasis. 5. 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 6. Morbid obesity. 7. Atrial fibrillation, on Eliquis. 8. Chronic leukocytosis secondary to steroid therapy. Recommendations: * An ABG has been ordered for this morning. We will check the results and then consider giving the patient a trial off BiPAP. * Monitor respiratory status closely. * Discontinue Ativan, avoid oversedation. * Continue nebs/total respiratory care. * Continue slow prednisone taper. * Continue suppressive antibiotic therapy with rifampin and doxycycline. * Please discuss results of current sputum culture with ID this morning, noting his sputum culture from 12/10/2016 is positive for enterococcus. Will need to discuss possible treatment. * DVT prophylaxis - on Eliquis. * Continue all supportive care.
--- NOTE | 2016-12-13 08:54 | Discharge Summary ---
Visit Information Visit Dates Admission Date: 12/07/16 Discharge Date: 12/14/16 Hospital Course Course Attending Physician: VALDEZ VOGEL,MCKENNA Primary Care Physician: LALA SMALL MD Consulting Request: Consulting Specialty: Pulmonary Disease Consulting Physician: Kiran Bustillos MD Hospital Course: The pt is 66 year obese male with a history of COPD , bilateral lower extremity edema, HTN, hyperlipidemia, history of atrial fibrillation on Eliquis, asthma, neurogenic bladder, depression, chronic constipation, muscle spasms, JELANI, CAD s/ p stent placement, IVC filter placement, 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 He was sent in by urologist Dr. Polk to the ED. Pt c/o of urinary leakage, malodorous urine, persistent cough since his last admission for pneumonia, and fever. ED workup Vitals on admission: Temperature 97.9 heart rate 100 respiratory rate 18 blood pressure 148/69 O2 sats 98 nasal cannula 2 L White cell count of 14.4 H&H 11.9 and 37.3. BUN 14 and Cr 0.5 Trops negative CXR Results Retrocardiac opacification and obscuration of the left hemidiaphragm suspicious for a left lower lobe infiltrate. ------ He was treated for following conditions Hospital-acquired pneumonia sputum positive for enterococcus: Pt complained that cough had not resolved since last admission and treatment for previous pneumonia.Previously culture positive for psuedomonas. He is on chronic Doxy and rifampin suppression for a hx of spinal abscess. Despite that has persistent white count and SOB. Note pt is d/c on steriod taper. * CT scan findings above bibasiler atelectasis with possible superimposed pneumonia LL lung base see results of CT * he was initially started on azithromycin and Ceftaz (4days) and later antibiotics were stopped as he clinically improved * Lower respiratory cultures showed mixed ebenezer and growth of gram-positive cocci likely colonization * Urine strep and Legionella negative COPD exacerbation on 12/09 rapid response was called because the patient was lethargic. he was alert and oriented 3. ABG showed respiratory acidosis with PCo2 of 72 the patient was put on BiPAP. Repeat ABG shows PCO2 of 67. * Overnight pulse oximetry was done with oxygen sat ranging from 99-92 on 2 L NC. Patient refuses BiPAP adamantly * He is being discharged on steroid taper 20mg x4 days 10mg x4 days continue on 0.5 till appointment with . * Symibort,TRC ,Albuterol, Montelukast 10 mg daily * Ativan dose decreased to 0.5 MG PRN and trazodone was decreased to 25 MG daily to avoid excessive sedation and lethargy. Pt encouraged to avoid all sedating meds. UTI-resolved: UA significant for Ur WBC 10-15, LE small, trace proteins, negative ntirites. Pt has hx of neurogenic bladder with frequent straight catheterizations (3-5 times daily) * urine cultures no growth * The patient is being d/c with Orellana and will follow up with Dr. Polk for urodynamic studies. HTN patient's heart rate and blood pressure has been towards the higher side 180 /80. We have started hypertensive medication * Metoprolol 12.5mg BID * Sotalol 80 mg BID * Continue Lasix 50 MG Q4 Paraplegia secondary to spinal MRSA abscess * Cont suppressive abx treatment with rifampin/doxycycline * Schedule MRI thoracic spine to evaluate residual abscess and eval if abx are still necessary. history of muscle spasms * Continue baclofen history of AFIB * Continue eloquis BID chronic lower extremity edema * Continue every other day lasix regimen. Next dose 12/08 Hyperlipidemia * Continue IM evolocumab every two weeks. Next dose 12/12 obstructive sleep apnea Patient does have a history of obstructive sleep apnea * refuses BiPAP or CPAP adamantly Allergies: Coded Allergies: heparin (SWELLING 12/07/16) vancomycin (HIVES, SKIN CRACKES, TURNS RED, SWELLS AND PEELS 12/07/16) Pertinent Lab Results: CT findings 12/01 1. Obstructive lung disease with bibasilar dependent areas of lung parenchymal consolidation, left greater than right. Findings may be related to atelectasis with possible superimposed pneumonia in left lung base.Borderline mediastinal lymph nodes are likely reactive. 2. Small left pleural effusion. 3. Platelike atelectasis or scarring in the lingula. 4. Severe coronary artery calcifications. 5. Osteopenia with chronic 50% wedge compression deformity of T7 with partial fusion, focal kyphosis and secondary degenerative change as discussed above. Disposition Summary Disposition Principal Diagnosis: COPD exacerbation Pneumonia Additional Diagnosis: paraplegia Discharge Disposition: home health services Discharge Instructions General Discharge Information Code Status: Do Not Resucitate/Intubat Patient's Diet: Heart Healthy Patient's Activity: self limited Follow-Up Instructions/Appts: Follow-up with your PCP Follow-up with Dr. Bustillos Repeat MRI of thoracolumbar spine Needs BiPAP Finish ur steriod taper Medications at Discharge Discharge Medications: Stop taking the following medications: Gabapentin (Gabapentin) 600 MG TABLET ORAL THREE TIMES DAILY Qty = 90 Lorazepam (Ativan) 1 MG TABLET ORAL TWICE DAILY as needed for ANXIETY Trazodone HCl (Trazodone HCl) 50 MG TABLET ORAL Every night as needed for SLEEP Continue taking these medications: Furosemide (Furosemide) 20 MG TABLET 3 Tablet ORAL EVERY 48 HOURS (Every 2 days) Qty = 90 Comments: Last Taken: 12/13/16 Time: 10:04 AM Lactobacillus Acidophilus (Acidophilus) 1 EACH CAPSULE 1 Capsule ORAL TWICE DAILY Comments: NOT GIVEN THIS ADMISSION Magnesium Oxide (Magnesium) 400 MG CAPSULE 1 Capsule ORAL 0600 Comments: NOT GIVEN THIS ADMISSION Multivitamin (Multi-Day Vitamins) 1 EACH TABLET 1 Tablet ORAL DAILY Comments: Last Taken: 12/14/16 Time: 8:57 AM Nortriptyline HCl (Nortriptyline HCl) 10 MG CAPSULE 1 Capsule ORAL Every night Qty = 30 Comments: Last Taken: 12/13/16 Time: 9:24 PM Atomoxetine HCl (Strattera) 40 MG CAPSULE 1 Capsule ORAL Every Morning Qty = 30 Comments: NOT GIVEN THIS ADMISSION Ascorbate Calcium (Vitamin C) 500 MG TABLET 1 Tablet ORAL TWICE DAILY Comments: NOT GIVEN THIS ADMISSION Oxycodone HCl/Acetaminophen (Oxycodone-Acetaminophen 5-325) 5 MG-325 MG TABLET 1-2 Tablet ORAL Q4H as needed for PAIN Qty = 120 Comments: NOT GIVEN THIS ADMISSION Baclofen (Baclofen) 20 MG TABLET 1 Tablet ORAL TWICE DAILY Qty = 150 Comments: Last Taken: 12/14/16 Time: 9:01 AM Bisacodyl (Dulcolax) 10 MG SUPP.RECT 1 Suppository RECTAL Every other day Comments: Last Taken: 12/13/16 Time: 6:35 PM Potassium Chloride (Potassium Chloride) 20 MEQ TAB.ER.PRT 1 Tablet ORAL DAILY Qty = 90 Comments: NOT GIVEN THIS ADMISSION Rifampin (Rifadin) 300 MG CAPSULE 1 Capsule ORAL TWICE DAILY Comments: Last Taken: 12/14/16 Time: 8:57 AM Guaifenesin (Mucinex) 600 MG TAB.ER.12H 2 Tablet ORAL TWICE DAILY Comments: Last Taken: 12/14/16 Time: 8:56 AM Albuterol Sulfate (Albuterol Sulfate) 2.5 MG/3 ML (0.083 %) VIAL.NEB 1 Vial Inhale Solution EVERY 4 HOURS NEEDED as needed for SHORTNESS OF BREATH Comments: Last Taken: 12/08/16 Time: 10:28 AM Evolocumab (Repatha Sureclick) 140 MG/ML PEN.INJCTR 1 Milliliters Inject into fatty tissue EVERY 2 WEEKS Comments: NOT GIVEN THIS ADMISSION Montelukast Sodium (Singulair) 10 MG TABLET 1 Tablet ORAL DAILY Comments: Last Taken: 12/14/16 Time: 8:57 AM Pantoprazole Sodium (Protonix) 40 MG TABLET.DR 1 Tablet ORAL DAILY Comments: NOT GIVEN THIS ADMISSION Tiotropium [place] (Spiriva) 18 MCG CAP.W.DEV 1 Capsule Inhale through mouth DAILY Comments: Last Taken: 12/14/16 Time: 10:51 AM Doxycycline Hyclate (Doxycycline Hyclate) 100 MG CAPSULE 1 Capsule ORAL TWICE DAILY Qty = 60 Comments: Last Taken: 12/14/16 Time: 08:57 AM Sotalol (Betapace) 80 MG TABLET 80 Milligram ORAL TWICE DAILY Qty = 60 Comments: Last Taken: 12/14/16 Time: 8:54 AM Budesonide/Formoterol Fumarate (Symbicort 80-4.5 Mcg Inhaler) 80 MCG-4.5 MCG/ ACTUATION HFA.AER.AD 2 Puff Inhale through mouth TWICE DAILY Days = 30 Comments: NOT GIVEN THIS ADMISSION Metoprolol Tartrate (Metoprolol Tartrate) 25 MG TABLET 12.5 Milligram ORAL TWICE DAILY Days = 30 Comments: Last Taken: 12/14/16 Time: 8:56 AM Apixaban (Eliquis) 5 MG TABLET 5 Milligram ORAL TWICE DAILY Qty = 60 Comments: Last Taken: 12/14/16 Time: 8:55 AM Omeprazole (Omeprazole) 20 MG CAPSULE. 1 Capsule ORAL DAILY Comments: Last Taken: 12/14/26 Time: 5:38 AM Cannabis (Marijuana Oil) 1 amp AMP 1 Tablet ORAL SEE INSTRUCTIONS Instructions: 10 MG IN AM 20 MG AT PM DOSE THIS MEDICATION PER THE PROVIDER WHO IS PRESCRIBING IT FOR YOU. Comments: NOT GIVEN IN HOSPITAL Albuterol Sulfate (Ventolin Hfa) 90 MCG HFA.AER.AD 2 Puff Inhale through mouth As Directed as needed for COPD Qty = 18 Comments: Last Taken: 12/10/16 Time: 5:30 PM Start taking the following new medications: Prednisone (Prednisone) 10 MG TABLET 1 Tablet ORAL SEE INSTRUCTIONS Qty = 30 No Refills Instructions: SEE ODALYS DISCHARGE INSTRUCTIONS Comments: FROM 12/15 TO 12/18 TAKE 2 TABS DAILY FROM 12/19 TO 12/22 TAKE 1 TAB DAILY THEN TAKE 0.5 TAB DAILY UNTIL U SEE NEXT WEEK LAST TAKEN: 12/14/16 TIME: 8:54 AM Gabapentin (Gabapentin) 300 MG CAPSULE 1 Tablet ORAL Q8H as needed for NEUROPATHIC PAIN Qty = 30 No Refills Comments: Last Taken: 12/14/16 Time: 8:54 AM Lorazepam (Ativan) 0.5 MG TABLET 1 Tablet ORAL DAILY as needed for ANXIETY Qty = 10 No Refills Trazodone HCl (Trazodone HCl) 50 MG TABLET 0.5 Tablet ORAL DAILY as needed for INSOMNIA Qty = 30 No Refills Copies To: STACI VOGEL,LALA Gray
--- NOTE | 2016-12-13 13:12 | PN- Att Addend ---
Attending Addendum Attending Brief Note Patient seen and examined. Plan of care discussed with the medical team and the patient. Available lab work and radiology test reports were reviewed. Patient appears comfortable and pleasant and denies any chest pain fever chills nausea or vomiting. Patient had a rapid response yesterday due to drowsiness. He was found to have increase in CO2. He received BiPAP last night. This morning he is awake but appears lethargic Assessment * Hospital-acquired pneumonia suspected gram-negative such as Pseudomonas, currently stable; note sputum culture is growing GPCs which is most likely colonization. Ceftaz was discontinued * CO2 retention * COPD exacerbation * Hypoxia * Persistently elevated WBC count despite IV antibiotics * Bilateral atelectasis * Paraparesis * Neurogenic bladder * History of atrial fibrillation * His hyperlipidemia * History of spinal abscess currently on chronic suppressive therapy Plan * Continue rifampin and doxycycline. * Continue prednisone taper * agree with discontinuation of Ativan * Plan for discharge tomorrow Exam: General: Patient awake alert oriented without any distress CVS: S1 plus S2 without any murmur or gallops Chest: Few scattered crepitation with expiratory prolongation and mild wheeze. There is no respiratory distress. Abdomen: Soft nontender, bowel sound present, no guarding or rebound [employer]: Awake alert oriented with paraparesis follows command appropriately Extremities: No edema; no clubbing or cyanosis noted Orellana intact. Laboratory Tests 12/13 12/13 0825 0710 Blood Gas pH (7.35 - 7.45 PH) 7.38 pCO2 (35 - 45 TORR) 61 *H pO2 (80 - 100 TORR) 80 HCO3 (21 - 28 MEQ/L) 35 H ABG O2 Sat (Measured) (>96.0 %) 95.0 L Carboxyhemoglobin (1.5 - 5.0 %) 0.4 L O2 Concentration % 35% Respiration Rate (BPM) 18 O2 Delivery Method BIPAP Vent Mode ST Expiratory Pressure (CM H2O P) 6 Inspiratory Pressure (CM H2O P) 20 Chemistry Sodium (137 - 145 mmol/L) 138 Potassium (3.5 - 5.1 mmol/L) 4.2 Chloride (98 - 107 mmol/L) 95 L Carbon Dioxide (22 - 30 mmol/L) 38 H Anion Gap (5 - 16) 5 BUN (9 - 20 mg/dL) 16 Creatinine (0.7 - 1.2 mg/dL) 0.5 L Estimated GFR (>60 ml/min) > 60 BUN/Creatinine Ratio (7 - 25 %) 32.0 H Hematology CBC w Diff NO MAN DIFF REQ WBC (4.8 - 10.8 /CUMM) 16.6 H RBC (4.70 - 6.10 /CUMM) 4.17 L Hgb (14.0 - 18.0 G/DL) 12.1 L Hct (42 - 52 %) 37.8 L MCV (80.0 - 94.0 FL) 90.7 MCH (27.0 - 31.0 PG) 29.1 RDW (11.5 - 14.5 %) 15.4 H Plt Count (130 - 400 /CUMM) 338 MPV (7.4 - 10.4 FL) 8.1 Gran % (42.2 - 75.2 %) 79.1 H Lymphocytes % (20.5 - 51.1 %) 12.7 L Monocytes % (1.7 - 9.3 %) 6.4 Eosinophils % (0 - 5 %) 1.5 Basophils % (0.0 - 2.0 %) 0.3 Absolute Granulocytes (1.4 - 6.5 /CUMM) 13.1 H Absolute Lymphocytes (1.2 - 3.4 /CUMM) 2.1 Absolute Monocytes (0.10 - 0.60 /CUMM) 1.1 H Absolute Eosinophils (0.0 - 0.7 /CUMM) 0.3 Absolute Basophils (0.0 - 0.2 /CUMM) 0 PUBS MCHC (33.0 - 37.0 G/DL) 32.1 L Miscellaneous Phlebotomy Draw Site RIGHT RADIAL 12/12 12/12 [id number] Blood Gas pH (7.35 - 7.45 PH) 7.36 7.32 L pCO2 (35 - 45 TORR) 67 *H 73 *H pO2 (80 - 100 TORR) 76 L 72 L HCO3 (21 - 28 MEQ/L) 37 H 37 H ABG O2 Sat (Measured) (>96.0 %) 95.0 L 93.0 L P-50 (Temp Corrected) Y Carboxyhemoglobin (1.5 - 5.0 %) 1.0 L 0.7 L O2 Concentration % 35% 35 Temperature (97.0 - 100.0 FARH) 98.1 Respiration Rate (BPM) 18 O2 Delivery Method BIPAP BIPAP Vent Mode ST Expiratory Pressure (CM H2O P) 6 Inspiratory Pressure (CM H2O P) 12 Miscellaneous Phlebotomy Draw Site RIGHT RADIAL RIGHT RADIAL Microbiology Date/Time Procedure - Status Source Growth 12/13 833 Respiratory Culture - COLB LOWER RESP 12/13 833 Gram Stain - COLB LOWER RESP Vital Signs Date Time Temp Pulse Resp B/P B/P Pulse O2 O2 Flow FiO2 Mean Ox Delivery Rate 12/13 1005 68 138/68 12/13 0833 92 Nasal 3.0L Cannula 12/13 0827 72 93 12/13 0800 94 Nasal 3.0L Cannula 12/13 0737 97.4 75 20 160/82 94 12/13 0614 76 97 12/13 0000 BIPAP 12/13 0000 71 18 147/85 95 Nasal 4.0L Cannula 12/12 2252 89 93 12/12 2247 98.9 81 22 114/80 99 BIPAP 12/12 2150 81 114/80 12/12 1918 81 97 12/12 1717 96 BIPAP 35% 12/12 1659 95 97 12/12 1600 95 BIPAP 35% 12/12 1450 97.5 85 20 146/86 94 BIPAP
[2016-12-13 14:59] VITALS: BP 142/80
--- NOTE | 2016-12-13 15:52 | PN- Infect Dx ---
Subjective Subjective: Afebrile on steroids. He feels well today with no complaints. Objective Last 24 Hrs of Vital Signs/I&O Vital Signs Date Time Temp Pulse Resp B/P B/P Pulse O2 O2 Flow FiO2 Mean Ox Delivery Rate 12/13 1459 98.1 80 18 142/80 97 Nasal 2.0L Cannula 12/13 1005 68 138/68 12/13 0833 92 Nasal 3.0L Cannula 12/13 0827 72 93 12/13 0800 94 Nasal 3.0L Cannula 12/13 0737 97.4 75 20 160/82 94 12/13 0614 76 97 12/13 0000 BIPAP 12/13 0000 71 18 147/85 95 Nasal 4.0L Cannula 12/12 2252 89 93 12/12 2247 98.9 81 22 114/80 99 BIPAP 12/12 2150 81 114/80 12/12 1918 81 97 12/12 1717 96 BIPAP 35% 12/12 1659 95 97 12/12 1600 95 BIPAP 35% Intake & Output 12/13 1600 12/13 0800 12/13 0000 Intake Total 800 480 240 Output Total 1600 350 250 Balance -800 130 -10 Intake, Oral 800 480 240 Number 1 Bowel Movements Output, Urine 1600 350 250 Physical Exam Other Physical Findings: He appears comfortable in no acute distress Lungs scattered wheezes Heart irregular rhythm with no murmur Extremities no cyanosis, clubbing or edema Orellana catheter is in place Results Last 24 Hours of Lab Results: Laboratory Tests 12/13 12/13 0825 0710 Blood Gas pH (7.35 - 7.45 PH) 7.38 pCO2 (35 - 45 TORR) 61 *H pO2 (80 - 100 TORR) 80 HCO3 (21 - 28 MEQ/L) 35 H ABG O2 Sat (Measured) (>96.0 %) 95.0 L Carboxyhemoglobin (1.5 - 5.0 %) 0.4 L O2 Concentration % 35% Respiration Rate (BPM) 18 O2 Delivery Method BIPAP Vent Mode ST Expiratory Pressure (CM H2O P) 6 Inspiratory Pressure (CM H2O P) 20 Chemistry Sodium (137 - 145 mmol/L) 138 Potassium (3.5 - 5.1 mmol/L) 4.2 Chloride (98 - 107 mmol/L) 95 L Carbon Dioxide (22 - 30 mmol/L) 38 H Anion Gap (5 - 16) 5 BUN (9 - 20 mg/dL) 16 Creatinine (0.7 - 1.2 mg/dL) 0.5 L Estimated GFR (>60 ml/min) > 60 BUN/Creatinine Ratio (7 - 25 %) 32.0 H Hematology CBC w Diff NO MAN DIFF REQ WBC (4.8 - 10.8 /CUMM) 16.6 H RBC (4.70 - 6.10 /CUMM) 4.17 L Hgb (14.0 - 18.0 G/DL) 12.1 L Hct (42 - 52 %) 37.8 L MCV (80.0 - 94.0 FL) 90.7 MCH (27.0 - 31.0 PG) 29.1 RDW (11.5 - 14.5 %) 15.4 H Plt Count (130 - 400 /CUMM) 338 MPV (7.4 - 10.4 FL) 8.1 Gran % (42.2 - 75.2 %) 79.1 H Lymphocytes % (20.5 - 51.1 %) 12.7 L Monocytes % (1.7 - 9.3 %) 6.4 Eosinophils % (0 - 5 %) 1.5 Basophils % (0.0 - 2.0 %) 0.3 Absolute Granulocytes (1.4 - 6.5 /CUMM) 13.1 H Absolute Lymphocytes (1.2 - 3.4 /CUMM) 2.1 Absolute Monocytes (0.10 - 0.60 /CUMM) 1.1 H Absolute Eosinophils (0.0 - 0.7 /CUMM) 0.3 Absolute Basophils (0.0 - 0.2 /CUMM) 0 PUBS MCHC (33.0 - 37.0 G/DL) 32.1 L Miscellaneous Phlebotomy Draw Site RIGHT RADIAL 12/12 1625 Blood Gas pH (7.35 - 7.45 PH) 7.36 pCO2 (35 - 45 TORR) 67 *H pO2 (80 - 100 TORR) 76 L HCO3 (21 - 28 MEQ/L) 37 H ABG O2 Sat (Measured) (>96.0 %) 95.0 L Carboxyhemoglobin (1.5 - 5.0 %) 1.0 L O2 Concentration % 35% O2 Delivery Method BIPAP Miscellaneous Phlebotomy Draw Site RIGHT RADIAL Last 24 Hours of Bryan Results: Sputum culture December 10 positive for Enterococcus sensitive to Ampicillin and yeast Sputum culture December 13 pending Recent Imaging Studies: Chest x-ray December 12 no change from his previous x-ray Assessment/Plan Impression: 66 yo man with JELANI, AFIB w/ RVR, stage IV COPD on 2L O2, Afib on Eliquis, CAD s/ p stent, HTN, 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 He remains afebrile with blood cell count elevated, likely secondary to steroids. The significance of the Enterococcus isolated from his sputum culture is unclear and suspect this represents oropharyngeal contamination. The role of Doxycycline and Rifampin suppression is unclear at this time. An MRI of his thoracolumbar spine over 5 years prior to admission did not reveal any evidence for any collection; therefore reevaluation of these antibiotics may be appropriate. Suggestion: 1. Would consider repeat MRI of the thoracolumbar spine 2. Continue suppressive antibiotic treatment with Rifampin and Doxycycline pending above
[2016-12-13 22:32] VITALS: BP 138/80
[2016-12-14 06:57] VITALS: BP 126/56
--- NOTE | 2016-12-14 07:43 | PN- Housestaff ---
Subjective Follow-up For: COPD Pneumonia Subjective: I have seen and examined the patient. The patient was lying comfortably in the bed. The patient was having breakfast. He was in 2 L nasal cannula. Overnight pulse oximetry showed O2 saturation ranging from 92 to 99 on 2 L oxygen nasal cannula. He feels like he is improving and is ready to go home. There are no overnight acute events. He does not complain of any fevers palpitations or chest pain. Review of Systems Constitutional: Denies: fever, malaise. Cardiovascular: Denies: chest pain, edema. Respiratory: Reports: cough, short of breath, sputum production. Gastrointestinal: Reports: no symptoms, see HPI. Genitourinary: Reports: no symptoms. Objective Last 24 Hrs of Vital Signs/I&O Vital Signs Date Time Temp Pulse Resp B/P B/P Pulse O2 O2 Flow FiO2 Mean Ox Delivery Rate 12/14 0822 96 Nasal 2.0L Cannula 12/14 0800 Nasal 2.0L Cannula 12/14 0657 98.0 69 20 126/56 95 Nasal 2.0L Cannula 12/14 0429 99 Nasal 2.0L Cannula 12/14 0039 71 96 12/14 0000 94 Nasal 2.0L Cannula 12/13 2232 98.8 72 18 138/80 96 12/13 2129 78 124/76 12/13 1805 96 Nasal 3.0L Cannula 12/13 1600 Nasal 3.0L Cannula 12/13 1459 98.1 80 18 142/80 97 Nasal 2.0L Cannula 12/13 1005 68 138/68 Intake & Output 12/14 1600 12/14 0800 12/14 0000 Intake Total 240 600 Output Total 550 475 Balance -310 125 Intake, Oral 240 600 Number 1 2 Bowel Movements Output, Urine 550 475 Physical Exam General Appearance: Alert, Oriented X3, Cooperative, No Acute Distress Skin: No Rashes, No Breakdown Cardiovascular: Normal S1, Normal S2 Lungs: scattered ronchi and few wheezes with prolonged expiration Abdomen: Normal Bowel Sounds, Soft, No Tenderness Neurological: Normal Speech Extremities: paraplegic Current Medications: Current Medications Sig/Danni Start time Last Medication Dose Route Stop Time Status Admin Acetaminophen 650 MG Q6P PRN 12/11 0245 AC 12/12 PO 0640 Albuterol Sulfate 3 ML EVERY 4 HRS/AWAKE 12/08 1600 AC 12/14 INH 0759 Albuterol Sulfate 2 PUF Q6P PRN 12/07 2330 AC 12/10 INH 1731 Albuterol Sulfate 3 ML Q4P PRN 12/07 2330 AC 12/08 INH 1028 Apixaban 5 MG BID 12/07 2325 AC 12/13 PO 2124 Baclofen 20 MG BID 12/07 2327 AC 12/13 PO 2126 Bisacodyl 10 MG .STK-MED ONE 12/13 1835 DC [place] 12/13 1836 Bisacodyl 10 MG DAILY PRN 12/08 1400 AC 12/13 [place] 1835 Doxycycline Hyclate 100 MG BID 12/07 2327 AC 12/13 PO 2125 Furosemide 60 MG Q48 12/09 1000 AC 12/13 PO 1004 Gabapentin 300 MG Q8H 12/12 1730 AC 12/13 PO 1724 Guaifenesin 1,200 MG BID 12/08 1000 AC 12/13 PO 2124 Lorazepam 1 MG BID PRN 12/07 2330 DC 12/12 PO 2150 Metoprolol Tartrate 12.5 MG BID 12/09 1200 AC 12/13 PO 2129 Montelukast Sodium 10 MG DAILY 12/08 1000 AC 12/13 PO 1006 Multivitamins 1 TAB DAILY 12/08 1000 AC 12/13 Therapeutic PO 1000 Nortriptyline HCl 10 MG QPM 12/08 2200 AC 12/13 PO 2124 Omeprazole 20 MG DAILY AC 12/08 0700 AC 12/14 PO 0538 Prednisone 10 MG DAILY 12/14 1000 AC PO 12/15 1001 Prednisone 20 MG DAILY 12/12 1000 DC 12/13 PO 12/13 1001 1002 Rifampin 300 MG DAILY 12/08 1000 AC 12/13 PO 0958 Sotalol HCl 80 MG BID 12/09 1000 AC 12/13 PO 2129 Tiotropium [place] 1 PUF DAILY 12/08 1000 AC 12/13 INH 1006 Trazodone HCl 50 MG QPM PRN 12/07 2345 AC 12/12 PO 2150 Last 24 Hrs of Lab/Bryan Results Last 24 Hrs of Labs/Mics: Laboratory Tests 12/14/16 0732: Sodium Pending, Potassium Pending, Chloride Pending, Carbon Dioxide Pending, Anion Gap Pending, BUN Pending, Creatinine Pending, BUN/Creatinine Ratio Pending , CBC w Diff Pending, WBC Pending, RBC Pending, Hgb Pending, Hct Pending, MCV Pending, MCH Pending, RDW Pending, Plt Count Pending, MPV Pending, PUBS MCHC Pending 12/14/16 0700: ABG O2 Sat Calc/Jana 96.0, O2 Concentration % 2LPM, O2 Delivery Method [facility] Microbiology 12/13 1305 LOWER RESP: Respiratory Culture - RES 12/13 1305 LOWER RESP: Gram Stain - RES Assessment/Plan Assessment: THospital Course: The pt is 66 year obese male with a history of COPD , bilateral lower extremity edema, HTN, hyperlipidemia, history of atrial fibrillation on Eliquis, asthma, neurogenic bladder, depression, chronic constipation, muscle spasms, JELANI, CAD s/ p stent placement, IVC filter placement, 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 He presented to the ED complaining of urinary leakage, malodorous urine , persistent cough since his last admission for pneumonia, and fever. Vitals on admission Temperature 97.9 heart rate 100 respiratory rate 18 blood pressure 148/69 O2 sats 98 nasal cannula 2 L ED workup White cell count of 14.4 H&H 11.9 and 37.3. BUN 14 and Cr 0.5 Trops negative CXR Results Retrocardiac opacification and obscuration of the left hemidiaphragm suspicious for a left lower lobe infiltrate. ------ He was treated for following conditions Pertinent Lab Results: CT findings 12/01 1. Obstructive lung disease with bibasilar dependent areas of lung parenchymal consolidation, left greater than right. Findings may be related to atelectasis with possible superimposed pneumonia in left lung base.Borderline mediastinal lymph nodes are likely reactive. 2. Small left pleural effusion. 3. Platelike atelectasis or scarring in the lingula. 4. Severe coronary artery calcifications. 5. Osteopenia with chronic 50% wedge compression deformity of T7 with partial fusion, focal kyphosis and secondary degenerative change as discussed above. Hospital-acquired pneumonia sputum positive for enterococcus and yeast Pt complained that cough has not resolved since last admission and treatment for previous pneumonia.Previously culture positive for psuedomonas. Pt has persistently elevated WBC count despite antibiotics , can be due to steriod use * CT scan findings above bibasiler atelectasis with possible superimposed pneumonia LL lung base see results of CT * he was initially started on azithromycin and Ceftaz (4days) and later antibiotics were stopped * Lower respiratory cultures showed mixed ebenezer and growth of gram-positive cocci likely colonization * Urine strep and Legionella negative COPD exacerbation on 12/09 rapid response was called because the patient was lethargic. he was alert and oriented 3. ABG showed respiratory acidosis with PCo2 of 72 the patient was put on BiPAP. Repeat ABG shows PCO2 of 67. * Overnight pulse oximetry was done with oxygen sat ranging from 99-92. Patient refuses BiPAP adamantly * He is being discharged on steroid taper 20x4 days 10x4 days continue on 0.5 till appointment with * Symibort,TRC ,Albuterol, Montelukast 10 mg daily * Ativan dose decreased to 0.5 MG PRN and trazodone was decreased to 25 MG daily to avoid excessive sedation and lethargy UTI-resolved UA significant for UrWBC 10-15, LE small, trace proteins, negative ntirites. Pt has hx of neurogenic bladder with frequent straight catheterizations (3-5 times daily) * urine cultures no growth * The patient is being discharged with Orellana and will follow up with Dr. Polk for urodynamic studies. HTN patient's heart rate and blood pressure has been towards the higher side overnight. We have started hypertensive medication * Metoprolol 12.5mg BID * Sotalol 80 mg BID * Continue Lasix 50 MG Q4 Paraplegia secondary to spinal MRSA abscess * Cont suppressive abx treatment with rifampin/doxycycline * Schedule MRI thoracic spine to evaluate residual abscess history of muscle spasms * Continue baclofen history of AFIB * Continue eloquis BID chronic lower extremity edema * Continue every other day lasix regimen. Next dose 12/08 Hyperlipidemia * Continue IM evolocumab every two weeks. Next dose 12/12 obstructive sleep apnea Patient does have a history of obstructive sleep apnea * refuses BiPAP or CPAP adamantly Allergies: Coded Allergies: heparin (SWELLING 12/07/16) vancomycin (HIVES, SKIN CRACKES, TURNS RED, SWELLS AND PEELS 12/07/16) Problem List: 1. Pneumonia due to gram-negative bacteria 2. Pneumonia 3. COPD (chronic obstructive pulmonary disease) Pain Ratin Pain Location: n/a Pain Goal: Pain 4 or less Pain Plan: none Tomorrow's Labs & Rationales: cbc bep??? Consulting Request: Consulting Specialty: Pulmonary Disease Consulting Physician: Kiran Bustillos MD
[2016-12-14] MEDS ORDERED: PREDNISONE10 M2 PO ×3 (07:47→12:08)
--- NOTE | 2016-12-14 08:20 | PN- Pulmonary ---
Subjective HPI/Critical Care Issues: The patient is awake and alert. He slept well overnight with supplemental oxygen. He did not use CPAP/BIPAP, noting that he continues to refuse therapy. He has less shortness of breath. He has no new sputum production, wheezing or chest congestion. He feels well and wants to go home. Objective Current Medications: Current Medications Sig/Danni Start time Last Medication Dose Route Stop Time Status Admin Acetaminophen 650 MG Q6P PRN 12/11 0245 AC 12/12 PO 0640 Albuterol Sulfate 3 ML EVERY 4 HRS/AWAKE 12/08 1600 AC 12/14 INH 0759 Albuterol Sulfate 2 PUF Q6P PRN 12/07 2330 AC 12/10 INH 1731 Albuterol Sulfate 3 ML Q4P PRN 12/07 2330 AC 12/08 INH 1028 Apixaban 5 MG BID 12/07 2325 AC 12/13 PO 2124 Baclofen 20 MG BID 12/07 2327 AC 12/13 PO 2126 Bisacodyl 10 MG .STK-MED ONE 12/13 1835 DC [place] 12/13 1836 Bisacodyl 10 MG DAILY PRN 12/08 1400 AC 12/13 TX 1835 Doxycycline Hyclate 100 MG BID 12/07 2327 AC 12/13 PO 2125 Furosemide 60 MG Q48 12/09 1000 AC 12/13 PO 1004 Gabapentin 300 MG Q8H 12/12 1730 AC 12/13 PO 1724 Guaifenesin 1,200 MG BID 12/08 1000 AC 12/13 PO 2124 Lorazepam 1 MG BID PRN 12/07 2330 DC 12/12 PO 2150 Metoprolol Tartrate 12.5 MG BID 12/09 1200 AC 12/13 PO 2129 Montelukast Sodium 10 MG DAILY 12/08 1000 AC 12/13 PO 1006 Multivitamins 1 TAB DAILY 12/08 1000 AC 12/13 Therapeutic PO 1000 Nortriptyline HCl 10 MG QPM 12/08 2200 AC 12/13 PO 2124 Omeprazole 20 MG DAILY AC 12/08 0700 AC 12/14 PO 0538 Prednisone 10 MG DAILY 12/14 1000 AC PO 12/15 1001 Prednisone 20 MG DAILY 12/12 1000 DC 12/13 PO 12/13 1001 1002 Rifampin 300 MG DAILY 12/08 1000 AC 12/13 PO 0958 Sotalol HCl 80 MG BID 12/09 1000 AC 12/13 PO 2129 Tiotropium [place] 1 PUF DAILY 12/08 1000 AC 12/13 INH 1006 Trazodone HCl 50 MG QPM PRN 12/07 2345 AC 12/12 PO 2150 Vital Signs & I&O Last 24 Hrs of Vitals and I&O: Vital Signs Date Time Temp Pulse Resp B/P B/P Pulse O2 O2 Flow FiO2 Mean Ox Delivery Rate 12/14 0657 98.0 69 20 126/56 95 Nasal 2.0L Cannula 12/14 0429 99 Nasal 2.0L Cannula 12/14 0039 71 96 12/14 0000 94 Nasal 2.0L Cannula 12/13 2232 98.8 72 18 138/80 96 12/13 2129 78 124/76 12/13 1805 96 Nasal 3.0L Cannula 12/13 1600 Nasal 3.0L Cannula 12/13 1459 98.1 80 18 142/80 97 Nasal 2.0L Cannula 12/13 1005 68 138/68 12/13 0833 92 Nasal 3.0L Cannula 12/13 0827 72 93 Intake & Output 12/14 1600 12/14 0800 12/14 0000 Intake Total 120 600 Output Total 550 475 Balance -430 125 Intake, Oral 120 600 Number 1 2 Bowel Movements Output, Urine 550 475 Exam General Appearance: alert, awake, comfortable, on BIPAP Head: atraumatic, normal appearance Neck: supple Respiratory: quiet respiration, decreased breath sounds, mminimal wheezing Cardiovascular: irregularly irregular Abdomen: normal bowel sounds, soft, non-tender Extremities: trace chronic bilateral edema Skin: intact, normal color, warm/dry Results Last 24 Hrs of Lab Results: Laboratory Tests 12/14/16 0700: ABG O2 Sat Calc/Jana 96.0, O2 Concentration % 2LPM, O2 Delivery Method [place] 12/13/16 0825: pH 7.38, pCO2 61 *H, pO2 80, HCO3 35 H, ABG O2 Sat (Measured) 95.0 L, Carboxyhemoglobin 0.4 L, O2 Concentration % 35%, Respiration Rate 18, O2 Delivery Method BIPAP, Vent Mode ST, Expiratory Pressure 6, Inspiratory Pressure 20, Phlebotomy Draw Site RIGHT RADIAL Impression/Plan Impression/Plan Impression/Plan: 1. Acute on chronic hypercarbic respiratory failure, secondary to oversedation, noting the patient received both trazodone and newly ordered Ativan prior to this event. He also has a component of underlying obesity hypoventilation syndrome however he has been intolerant to nasal CPAP in the past. 2. Healthcare associated pneumonia, sputum positive for enterococcus and yeast. 3. Exacerbation of COPD. 4. Atelectasis. 5. 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 6. Morbid obesity. 7. Atrial fibrillation, on Eliquis. 8. Chronic leukocytosis secondary to steroid therapy. Recommendations: * An ABG has been ordered for this morning. We will check the results and then consider discharge to home. * Continue nebs/total respiratory care. * Continue slow prednisone taper - discussed with housestaff. * Continue suppressive antibiotic therapy with rifampin and doxycycline. * Follow up ID recommendations. * DVT prophylaxis - on Eliquis. * Continue all supportive care. * Possible discharge for later today.
[2016-12-14 09:21] LABS: ABSOLUTE BASOPHIL COUNT 0 /CUMM (0.0-0.2); ABSOLUTE EOSINOPHIL COUNT 0.3 /CUMM (0.0-0.7); ABSOLUTE GRANULOCYTE CT 10.5 /CUMM (1.4-6.5); ABSOLUTE LYMPH COUNT 2.3 /CUMM (1.2-3.4); ABSOLUTE MONOCYTE COUNT 0.8 /CUMM (0.10-0.60); BASOPHIL % 0 % (0.0-2.0); EOSINOPHIL % 2.3 % (0-5); GRANULOCYTE % 75.3 % (42.2-75.2); HEMATOCRIT 36.8 % (42-52); MEAN CORPUSCULAR HGB 29.1 PG (27.0-31.0); MEAN CORPUSCULAR HGB CONC 31.8 G/DL (33.0-37.0); MEAN CORPUSCULAR VOLUME 91.4 FL (80.0-94.0); MEAN PLATELET VOLUME 8.2 FL (7.4-10.4); PLATELET COUNT 328 /CUMM (130-400); RBC DISTRIBUTION WIDTH 15.5 % (11.5-14.5); RED BLOOD CELL CT 4.02 /CUMM (4.70-6.10); WHITE BLOOD CELL COUNT 13.9 /CUMM (4.8-10.8)
[2016-12-14] MEDS ORDERED: GABAPENTIN300 M2 PO (12:08)
--- NOTE | 2016-12-14 14:06 | PN- Att Addend ---
Attending Addendum Attending Brief Note Patient seen and examined. Plan of care discussed with the medical team and the patient. Available lab work and radiology test reports were reviewed. Patient appears comfortable and pleasant and denies any chest pain fever chills nausea or vomiting. Patient is excited to go home today. Assessment * Hospital-acquired pneumonia suspected gram-negative such as Pseudomonas, currently stable; note sputum culture is growing GPCs which is most likely colonization. Ceftaz was discontinued; doing well off antibiotics * CO2 retention- patient is refusing BiPAP * COPD exacerbation * Hypoxia * Persistently elevated WBC count despite IV antibiotics * Bilateral atelectasis * Paraparesis * Neurogenic bladder * History of atrial fibrillation * His hyperlipidemia * History of spinal abscess currently on chronic suppressive therapy Plan * Continue rifampin and doxycycline. * Given recent episode of for excessive sedation necessitating BiPAP and CO2 retention I would recommend to reduce Ativan 0.5 mg twice a day when necessary. Reduced the trazodone dose to 25 mg at night. Continue gabapentin 300 mg 3 times a day * Continue prednisone taper * Plan for discharge * Follow-up with Dr. Bustillos as outpatient * Follow-up MRI of the back to follow-up spinal abscess * Patient will be going home with a Orellana. He will follow with Dr. Polk for urodynamic studies Exam: General: Patient awake alert oriented without any distress CVS: S1 plus S2 without any murmur or gallops Chest: Few scattered crepitation with expiratory prolongation and mild wheeze. There is no respiratory distress. Abdomen: Soft nontender, bowel sound present, no guarding or rebound REDYE HAND: Awake alert oriented with paraparesis follows command appropriately Extremities: No edema; no clubbing or cyanosis noted Orellana intact. Laboratory Tests 12/14/16 0732: Anion Gap 6, Estimated GFR > 60, BUN/Creatinine Ratio 28.3 H, CBC w Diff NO MAN DIFF REQ, RBC 4.02 L, MCV 91.4, MCH 29.1, RDW 15.5 H, MPV 8.2, Gran % 75.3 H, Lymphocytes % 16.4 L, Monocytes % 6.0, Eosinophils % 2.3, Basophils % 0 L, Absolute Granulocytes 10.5 H, Absolute Lymphocytes 2.3, Absolute Monocytes 0.8 H, Absolute Eosinophils 0.3, Absolute Basophils 0, PUBS MCHC 31.8 L 12/14/16 0700: ABG O2 Sat Calc/Jana 96.0, O2 Concentration % 2LPM, O2 Delivery Method [place] 12/13/16 0825: pH 7.38, pCO2 61 *H, pO2 80, HCO3 35 H, ABG O2 Sat (Measured) 95.0 L, Carboxyhemoglobin 0.4 L, O2 Concentration % 35%, Respiration Rate 18, O2 Delivery Method BIPAP, Vent Mode ST, Expiratory Pressure 6, Inspiratory Pressure 20, Phlebotomy Draw Site RIGHT [facility] 12/13/16 0710: Anion Gap 5, Estimated GFR > 60, BUN/Creatinine Ratio 32.0 H, CBC w Diff NO MAN DIFF REQ, RBC 4.17 L, MCV 90.7, MCH 29.1, RDW 15.4 H, MPV 8.1, Gran % 79.1 H, Lymphocytes % 12.7 L, Monocytes % 6.4, Eosinophils % 1.5, Basophils % 0.3, Absolute Granulocytes 13.1 H, Absolute Lymphocytes 2.1, Absolute Monocytes 1.1 H, Absolute Eosinophils 0.3, Absolute Basophils 0, PUBS MCHC 32.1 L 12/12/16 1625: pH 7.36, pCO2 67 *H, pO2 76 L, HCO3 37 H, ABG O2 Sat (Measured) 95.0 L, Carboxyhemoglobin 1.0 L, O2 Concentration % 35%, O2 Delivery Method BIPAP, Phlebotomy Draw Site RIGHT [facility] 12/12/16 1325: pH 7.32 L, pCO2 73 *H, pO2 72 L, HCO3 37 H, ABG O2 Sat (Measured) 93.0 L, P- 50 (Temp Corrected) Y, Carboxyhemoglobin 0.7 L, O2 Concentration % 35, Temperature 98.1, Respiration Rate 18, O2 Delivery Method BIPAP, Vent Mode ST, Expiratory Pressure 6, Inspiratory Pressure 12, Phlebotomy Draw Site RIGHT [facility] 12/12/16 1025: pH 7.34 L, pCO2 70 *H, pO2 81, HCO3 36 H, ABG O2 Sat (Measured) 94.0 L, P-50 (Temp Corrected) Y, Carboxyhemoglobin 1.2 L, O2 Concentration % 2L, Temperature 98.1, O2 Delivery Method N/C, Phlebotomy Draw Site RIGHT [facility] 12/12/16 0735: Anion Gap 5, Estimated GFR > 60, BUN/Creatinine Ratio 34.0 H, Phosphorus 2.6, Magnesium 2.0, CBC w Diff NO MAN DIFF REQ, RBC 4.01 L, MCV 91.1, MCH 29.0, RDW 15.1 H, MPV 7.9, Gran % 77.3 H, Lymphocytes % 14.4 L, Monocytes % 6.6, Eosinophils % 1.5, Basophils % 0.2, Absolute Granulocytes 11.6 H, Absolute Lymphocytes 2.2, Absolute Monocytes 1.0 H, Absolute Eosinophils 0.2, Absolute Basophils 0, PUBS MCHC 31.8 L Microbiology 12/13 1305 LOWER RESP: Respiratory Culture - RES ENTEROCOCCUS GRAM NEGATIVE RODS 12/13 130 LOWER RESP: Gram Stain - RES Vital Signs Date Time Temp Pulse Resp B/P B/P Pulse O2 O2 Flow FiO2 Mean Ox Delivery Rate 12/14 0856 68 120/70 12/14 0822 96 Nasal 2.0L Cannula 12/14 0800 Nasal 2.0L Cannula 12/14 0657 98.0 69 20 126/56 95 Nasal 2.0L Cannula 12/14 0429 99 Nasal 2.0L Cannula 12/14 0039 71 96 12/14 0000 94 Nasal 2.0L Cannula 12/13 2232 98.8 72 18 138/80 96 12/13 2129 78 124/76 12/13 1805 96 Nasal 3.0L Cannula 12/13 1600 Nasal 3.0L Cannula 12/13 1459 98.1 80 18 142/80 97 Nasal 2.0L Cannula
[2016-12-14] MEDS ORDERED: ATIVAN0.5 M1 PO (14:14)
[2016-12-14] MEDS ORDERED: TRAZODONE HCL50 M1 PO (14:16)
[2016-12-14 14:26] VITALS: BP 130/60
--- NOTE | 2016-12-14 14:34 | PN- Infect Dx ---
Subjective Subjective: Afebrile on steroids. He feels well with no significant shortness of breath and with a minimal cough. Objective Last 24 Hrs of Vital Signs/I&O Vital Signs Date Time Temp Pulse Resp B/P B/P Pulse O2 O2 Flow FiO2 Mean Ox Delivery Rate 12/14 0856 68 120/70 12/14 0822 96 Nasal 2.0L Cannula 12/14 0800 Nasal 2.0L Cannula 12/14 0657 98.0 69 20 126/56 95 Nasal 2.0L Cannula 12/14 0429 99 Nasal 2.0L Cannula 12/14 0039 71 96 12/14 0000 94 Nasal 2.0L Cannula 12/13 2232 98.8 72 18 138/80 96 12/13 2129 78 124/76 12/13 1805 96 Nasal 3.0L Cannula 12/13 1600 Nasal 3.0L Cannula 12/13 1459 98.1 80 18 142/80 97 Nasal 2.0L Cannula Intake & Output 12/14 1600 12/14 0800 12/14 0000 Intake Total 240 600 Output Total 550 475 Balance -310 125 Intake, Oral 240 600 Number 1 1 2 Bowel Movements Output, Urine 550 475 Physical Exam Other Physical Findings: He is awake and alert in no acute distress on his baseline 2 L of nasal oxygen Lungs decreased breath sounds bilaterally Heart irregular rhythm with no murmur Orellana catheter remains in place Results Last 24 Hours of Lab Results: Laboratory Tests 12/14 12/14 0732 0700 Blood Gas ABG O2 Sat Calc/Jana (92.0 - 96.0 %) 96.0 O2 Concentration % 2LPM O2 Delivery Method NC Chemistry Sodium (137 - 145 mmol/L) 137 Potassium (3.5 - 5.1 mmol/L) 4.1 Chloride (98 - 107 mmol/L) 91 L Carbon Dioxide (22 - 30 mmol/L) 40 H Anion Gap (5 - 16) 6 BUN (9 - 20 mg/dL) 17 Creatinine (0.7 - 1.2 mg/dL) 0.6 L Estimated GFR (>60 ml/min) > 60 BUN/Creatinine Ratio (7 - 25 %) 28.3 H Hematology CBC w Diff NO MAN DIFF REQ WBC (4.8 - 10.8 /CUMM) 13.9 H RBC (4.70 - 6.10 /CUMM) 4.02 L Hgb (14.0 - 18.0 G/DL) 11.7 L Hct (42 - 52 %) 36.8 L MCV (80.0 - 94.0 FL) 91.4 MCH (27.0 - 31.0 PG) 29.1 RDW (11.5 - 14.5 %) 15.5 H Plt Count (130 - 400 /CUMM) 328 MPV (7.4 - 10.4 FL) 8.2 Gran % (42.2 - 75.2 %) 75.3 H Lymphocytes % (20.5 - 51.1 %) 16.4 L Monocytes % (1.7 - 9.3 %) 6.0 Eosinophils % (0 - 5 %) 2.3 Basophils % (0.0 - 2.0 %) 0 L Absolute Granulocytes (1.4 - 6.5 /CUMM) 10.5 H Absolute Lymphocytes (1.2 - 3.4 /CUMM) 2.3 Absolute Monocytes (0.10 - 0.60 /CUMM) 0.8 H Absolute Eosinophils (0.0 - 0.7 /CUMM) 0.3 Absolute Basophils (0.0 - 0.2 /CUMM) 0 PUBS MCHC (33.0 - 37.0 G/DL) 31.8 L Last 24 Hours of Bryan Results: Sputum culture December 13 positive for Enterococcus and gram-negative rods Assessment/Plan Impression: Stable with temperatures remaining normal (on steroids) and with blood cell count decreasing, though still elevated, likely secondary to steroids, with his respiratory status stable off antibiotics. The significance of the most recent sputum culture is unclear, with Enterococcus and gram-negative rods isolated, and with his respiratory status stable and CT scan not suggestive of pneumonia do not feel these need to be treated. The role of Doxycycline and Rifampin suppression is unclear at this time. An MRI of his thoracolumbar spine over 5 years prior to admission did not reveal any residual collection and, as discussed, a repeat MRI may be helpful. His Orellana catheter is apparently to remain in place per Urology with reevaluation as an outpatient. Suggestion: 1. Would pursue a repeat MRI of the thoracolumbar spine 2. Urology follow-up as an outpatient for removal of the Orellana catheter 3. Continue suppressive antibiotic treatment with Rifampin and Doxycycline pending above
== END 2016-12-14 15:26 | disposition home health service (06) | DRG 190 ==
LOC: ERH 17:42 → 2NB 21:45 → ERHI 21:45 → ENRESERV 12-08 20:24 → ENTRNSPT 12-08 21:57 → EDTRNSPT 12-08 22:06 → EDTRNSPTSTS 12-08 22:06 → 2NB 12-08 22:26 → CMPTRNSPT 12-08 22:46 → 2NB 12-10 07:42 → ENPENDDIS 12-14 12:18 → 2NB 12-14 15:26
PROVIDERS: Physician Assistant; Student in an Organized Health Care Education/Training Program; ADMIT Student in an Organized Health Care Education/Training Program
DX: J44.0 Chronic obstructive pulmonary disease with (acute) lower respiratory infection (principal); J15.6 Pneumonia due to other Gram-negative bacteria; J96.22 Acute and chronic respiratory failure with hypercapnia; E87.2 Acidosis; G82.20 Paraplegia, unspecified; I48.91 Unspecified atrial fibrillation; E66.2 Morbid (severe) obesity with alveolar hypoventilation; J98.11 Atelectasis; J44.1 Chronic obstructive pulmonary disease with (acute) exacerbation; Z99.81 Dependence on supplemental oxygen; Z87.01 Personal history of pneumonia (recurrent); N31.9 Neuromuscular dysfunction of bladder, unspecified; N39.498 Other specified urinary incontinence; R41.82 Altered mental status, unspecified; T43.215A Adverse effect of selective serotonin and norepinephrine reuptake inhibitors, initial encounter; T42.4X5A Adverse effect of benzodiazepines, initial encounter; Z68.34 Body mass index [BMI] 34.0-34.9, adult; G47.33 Obstructive sleep apnea (adult) (pediatric); I10 Essential (primary) hypertension; E78.5 Hyperlipidemia, unspecified; Z79.01 Long term (current) use of anticoagulants; I25.2 Old myocardial infarction; F32.9 Major depressive disorder, single episode, unspecified
CPT/HCPCS: 2NBP; ERO; 36415; 81001; 82436; 87040; 87070; 87071; 87086; 87147; 87449; 87450; 93005; 93010; J0456; J0713; J2920; J2930; J3490; J7040; J7512

== ENCOUNTER 2017-06-03 11:39 | Inpatient (IN) | payer OTHER, MEDICARE ==
[~2017-06-03] VITALS: Ht 175.3 cm; Wt 100.5 kg
[~2017-06-03 11:39] MED LIST changes: +AMOX-CLAV 875-1 EACH PO; +ATIVAN0.5 M1 PO; +DAILY VALUE1 EACH PO; +GABAPENTIN300 M2 PO; +INCRUSE ELLI62.5 MCG; +INCRUSE ELLI62.5 MCG INH; +MARI PO; +MARINOL2.5 MG PO; +MELATONIN3 M4 PO; -MULTI-DAY VITA1 EACH PO; +NYSTOP60 GM TOP; +VENTOLIN HFA18 GM INH
[2017-06-03] MEDS ORDERED: TYLENOL ARTHRI650 M1 PO (12:19)
[2017-06-03] MEDS ORDERED: LORAZEPAM1 M1 PO (12:23)
[2017-06-03] MEDS ORDERED: TOPROL XL25 M1 PO (12:24)
[2017-06-03] MEDS ORDERED: NORTRIPTYLINE H10 M2 PO (12:26)
[2017-06-03] MEDS ORDERED: OMEPRAZOLE20 M2 PO (12:26)
[2017-06-03] MEDS ORDERED: REPATHA SU140 MG/1 M SC (12:29)
--- NOTE | 2017-06-03 12:29 | ED DYSPNEA/ASTHMA COMPLAINT ---
History of Present Illness General Chief Complaint: Dyspnea (COPD, CHF, Other) Stated Complaint: BIBA, SOB Source: patient, old records, EMS Exam Limitations: no limitations Vital Signs & Intake/Output Vital Signs & Intake/Output ED Intake and Output 06/08 0000 06/07 1200 Intake Total 1000 120 Output Total 2400 Balance -1400 120 Intake, Oral 1000 120 Output, Urine 2400 Allergies Coded Allergies: heparin (Intermediate, SWELLING, RASH 03/07/17) vancomycin (Intermediate, HIVES, SKIN CRACKES, TURNS RED, SWELLS AND PEELS 03/07) warfarin (From COUMADIN) (Intermediate, RASH 03/07/17) Reconcile Medications Acetaminophen (Tylenol Arthritis) 650 MG TABLET.ER 1 TAB PO Q6-PRN PRN PAIN ( Reported) Albuterol Sulfate (Ventolin Hfa) 90 MCG HFA.AER.AD 2 PUF INH AD PRN COPD ( Reported) Apixaban (Eliquis) 5 MG TABLET 5 MG PO BID atrial fibrillation Ascorbate Calcium (Vitamin C) 500 MG TABLET 1 TAB PO BID SUPPLEMENT (Reported ) Atomoxetine HCl (Strattera) 40 MG CAPSULE 1 CAP PO QAM MENTAL HEALTH ( Reported) Baclofen 20 MG TABLET 1 TAB PO BID MUSCLE RELAXER (Reported) Bisacodyl (Dulcolax) 10 MG SUPP.RECT 1 SUP RC Q48 GI (Reported) Budesonide/Formoterol Fumarate (Symbicort 80-4.5 Mcg Inhaler) 80 MCG-4.5 MCG/ ACTUATION HFA.AER.AD 2 PUF INH BID COPD (Reported) Docusate Sodium (Stool Softener) 100 MG CAPSULE 1 CAP PO DAILY STOOL SOFTENER (Reported) Doxycycline Hyclate 100 MG CAPSULE 1 CAP PO BID infection (Reported) Evolocumab (Repatha Sureclick) 140 MG/ML PEN.INJCTR 1 ML SC Q 2 WEEKS CHOLESTEROL (Reported) Furosemide 20 MG TABLET 3 TAB PO Q48 DIURETIC (Reported) Gabapentin 600 MG TABLET 1 TAB PO TID NEUROPATHY (Reported) Guaifenesin (Mucinex) 600 MG TAB.ER.12H 2 TAB PO BID MUCUS (Reported) Lactobacillus Acidophilus (Acidophilus) 1 EACH CAPSULE 1 CAP PO BID PROBIOTIC (Reported) Levofloxacin (Levaquin) 500 MG TABLET 1 TAB PO DAILY LUNG INFECTION Lorazepam 1 MG TABLET 1 TAB PO BID ANXIETY (Reported) Magnesium Oxide (Magnesium) 400 MG CAPSULE 1 CAP PO 0600 SUPPLEMENT (Reported ) Metoprolol Succ XL (Toprol XL) 25 MG TAB 1 TAB PO DAILY HEART (Reported) Montelukast Sodium (Singulair) 10 MG TABLET 1 TAB PO DAILY ALLERGIES ( Reported) Multivitamin (Daily Value) 1 EACH TABLET 1 TAB PO DAILY VITAMIN SUPPORT ( Reported) Nortriptyline HCl 10 MG CAPSULE 1 CAP PO DAILY UNKNOWN (Reported) Omeprazole 20 MG CAPSULE.DR 1 CAP PO DAILY ACID REFLUX (Reported) Oxycodone HCl/Acetaminophen (Oxycodone-Acetaminophen 5-325) 5 MG-325 MG TABLET 1 TAB PO Q4H PRN PAIN (Reported) Potassium Chloride 20 MEQ TAB.ER.PRT 1 TAB PO DAILY SUPPLEMENT (Reported) Prednisone 10 MG TABLET 1 TAB PO DAILY COPD DATE TABS DAILY 06/08-06/09 5 06/10-06/11 4 06/12-06/13 3 06/14-06/15 2 06/16-06/17 1 06/18-06/19 0.5 Rifampin (Rifadin) 300 MG CAPSULE 300 MG PO BID MRSA (Reported) Rosuvastatin Calcium (Crestor) 5 MG TABLET 1 TAB PO DAILY CHOLESTEROL ( Reported) Sotalol (Betapace) 80 MG TABLET 80 MG PO BID AARYTHMIAS Tiotropium [place] (Spiriva) 18 MCG CAP.W.DEV 1 CAP INH DAILY BREATHING PROBLEMS (Reported) Trazodone HCl 50 MG TABLET 1 TAB PO QPM SLEEP (Reported) Triage Note: PT BIBA FOR WORSENING SOB Triage Nurses Notes Reviewed? yes HPI: Patient presents for evaluation of worsening shortness of breath over the past few days. Patient states that he has had a cough productive of green sputum but otherwise denied associated fever, chills, nasal congestion, headache, dizziness , no nuchal contacts or recent travel. Likewise denies chest pain or heart palpitations. He has been using a home nebulizer without improvement. Symptoms are described as moderate to severe in intensity and worsened with exertion. Nothing seems to make it feel better at this time. Past History Travel History Traveled to [place] past 21 day No Medical History Any Pertinent Medical History? 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 No Review of Systems Review of Systems Constitutional: Reports: no symptoms. EENTM: Reports: no symptoms. Respiratory: Reports: see HPI. Cardiovascular: Reports: no symptoms. GI: Reports: no symptoms. Genitourinary: Reports: no symptoms. Musculoskeletal: Reports: no symptoms. Skin: Reports: no symptoms. Neurological/Psychological: Reports: no symptoms. Hematologic/Endocrine: Reports: no symptoms. Immunologic/Allergic: Reports: no symptoms. All Other Systems: Reviewed and Negative Physical Exam Physical Exam Respiratory: SEE BELOW Comments: Gen.: Well-nourished, well-developed, no acute respiratory distress. Head: Normocephalic, atraumatic. Eyes: Normal inspection bilaterally Ears: Normal inspection bilaterally Nose: Normal inspection Throat/mouth : Moist mucosa Neck: Supple, full range of motion, no goiter Heart: Regular rate and rhythm, no murmurs rubs or gallops Lungs: Decreased air entry bilaterally with scattered end expiratory wheezing and mild rales Chest: Nontender Back: Normal range of motion Abdomen: Soft, nontender, nondistended, normal bowel sounds Extremities: Decreased range of motion of the lower extremities sig. Paraplegia , equal radial pulses, no cyanosis clubbing or edema Neurologic: Cranial nerves grossly intact, speech is clear Skin: warm and dry Psychiatric: Calm, cooperative, no apparent delusions or hallucinations Core Measures ACS in differential dx? No CVA/TIA Diagnosis No Sepsis Present: No Sepsis Focused Exam Completed? No Progress Differential Diagnosis: asthma, bronchitis, CHF, COPD, pneumonia Plan of Care: Orders Procedure Date/time Status AEROSOL CHG 06/07 UNK Complete OXYGEN 06/07 UNK Complete OXYGEN DAILY CHARGE 06/07 UNK Complete Diagnostic Imaging: Discussed w/RAD: Radiology Read. CXR Impression: PATIENT: ESTUARDO PEREZ PRESENT AGE: 67 PATIENT ACCOUNT NO: [id number] : 49 LOCATION: [facility] ORDERING PHYSICIAN: Cruz Box MD SERVICE DATE: 06/03/17 EXAM TYPE: RAD - XRY-PORTABLE CHEST XRAY EXAMINATION: XR PORTABLE CHEST CLINICAL INFORMATION: Dyspnea, cough, rales left chest. Presumptive diagnosis: Left pneumonia. COMPARISON: Chest 03/14. TECHNIQUE: Portable AP 70 degrees upright view of the chest was obtained. FINDINGS: The heart is normal in size. There is no congestion or edema. There is no definite focal consolidation although the left retrocardiac region is not well evaluated. Moderate degenerative changes of the left shoulder again noted. IMPRESSION: No definite evidence of pneumonia although the left retrocardiac region is not well evaluated. Consider follow-up examination if clinically indicated. DICTATED BY: Og Doherty MD DATE/TIME DICTATED:06/03/171328 CHIEF SERVICE DISPATCHER:PAULO DATE/TIME TRANSCRIBED:06/03/171328 CONFIDENTIAL, DO NOT COPY WITHOUT APPROPRIATE AUTHORIZATION. <Electronically signed in Other Vendor System> SIGNED BY: Og Doherty MD 06/03/17 1336 Initial ED EKG: NSR, no ST T wave changes Comments: 14:05 PT UPDATED ON TEST RESULTS. Patient appears improved clinically. Air entry has improved on repeat evaluation. Departure Departure Disposition: STILL A PATIENT Condition: Stable Clinical Impression Primary Impression: COPD exacerbation Referrals: Dominguez Serrano MD (PCP/Family) Departure Forms: Customer Survey General Discharge Information Prescriptions: Current Visit Scripts Prednisone 1 TAB PO DAILY #31 TAB DATE TABS DAILY 06/08-06/09 5 06/10-06/11 4 06/12-06/13 3 06/14-06/15 2 06/16-06/17 1 06/18-06/19 0.5 Levofloxacin (Levaquin) 1 TAB PO DAILY #5 TAB Admission Note Spoke With: Mango VOGEL,Romelia Documentation of Exam: Documentation of any treatments & extenuating circumstances including Concerns Regarding Discharge (functional status, medication knowledge or non-compliance, living conditions, etc.) that warrant an admission rather than observation: Patient is currently experiencing exacerbation of COPD which has compromised his functional capacity making him a poor candidate for outpatient management. I feel the exertion of outpatient treatment would likely worsen his COPD and induce severe dyspnea and hypoxia. The patient is at high risk of respiratory failure and mortality. I now feel he requires hospitalization and treatment with bronchodilators and IV Solu-Medrol. Pulse oximetry should be monitored and oxygen supplemented accordingly. Pulmonary consultation should be considered. Given this patient's complex past medical history I feel his treatment and recovery will likely be prolonged and somewhat complicated. I feel he'll require a multiple day hospitalization. Critical Care Note Critical Care Note Critical Care Time: 30-74 min ED Attending Observation Initial Observation Note: I have seen and personally examined ESTUARDO PEREZ on 06/09/17 at 1124. I agree with the current emergency department documentation. The disposition (admission or discharge) is uncertain at this time, he needs a period of observation for the following reason(s): The ED Nurse caring for this patient has been personally informed as to what the patient is being observed for.
[2017-06-03] MEDS ORDERED: CRESTOR5 M1 PO (12:30)
[2017-06-03] MEDS ORDERED: SINGULAIR10 M1 PO (12:30)
[2017-06-03] MEDS ORDERED: SPIRIVA18 MCG INH (12:31)
[2017-06-03] MEDS ORDERED: STRATTERA40 M1 PO (12:32)
[2017-06-03] MEDS ORDERED: TRAZODONE HCL50 M1 PO (12:32)
[2017-06-03] MEDS ORDERED: STOOL SOFTENER100 M3 PO (12:33)
[2017-06-03 12:41] LABS: ABSOLUTE BASOPHIL COUNT 0.1 /CUMM (0.0-0.2); ABSOLUTE EOSINOPHIL COUNT 0.2 /CUMM (0.0-0.7); ABSOLUTE GRANULOCYTE CT 11.3 /CUMM (1.4-6.5); ABSOLUTE LYMPH COUNT 2.3 /CUMM (1.2-3.4); ABSOLUTE MONOCYTE COUNT 0.9 /CUMM (0.10-0.60); BASOPHIL % 0.6 % (0.0-2.0); EOSINOPHIL % 1.4 % (0-5); GRANULOCYTE % 76.3 % (42.2-75.2); MEAN CORPUSCULAR HGB 29.1 PG (27.0-31.0); MEAN CORPUSCULAR HGB CONC 31.7 G/DL (33.0-37.0); MEAN CORPUSCULAR VOLUME 91.7 FL (80.0-94.0); MEAN PLATELET VOLUME 7.9 FL (7.4-10.4); PLATELET COUNT 337 /CUMM (130-400); RBC DISTRIBUTION WIDTH 14.3 % (11.5-14.5); RED BLOOD CELL CT 4.47 /CUMM (4.70-6.10); WHITE BLOOD CELL COUNT 14.8 /CUMM (4.8-10.8)
--- NOTE | 2017-06-03 13:36 | RADIOLOGY REPORT ---
EXAMINATION: XR PORTABLE CHEST CLINICAL INFORMATION: Dyspnea, cough, rales left chest. Presumptive diagnosis: Left pneumonia. COMPARISON: Chest 03/14/2017. TECHNIQUE: Portable AP 70 degrees upright view of the chest was obtained. FINDINGS: The heart is normal in size. There is no congestion or edema. There is no definite focal consolidation although the left retrocardiac region is not well evaluated. Moderate degenerative changes of the left shoulder again noted. IMPRESSION: No definite evidence of pneumonia although the left retrocardiac region is not well evaluated. Consider follow-up examination if clinically indicated.
[2017-06-03 18:41] VITALS: BP 142/84
--- NOTE | 2017-06-03 20:26 | History & Physical ---
[place] VOGEL,[facility] 06/03/172024: General Information and HPI MD Statement: I have seen and personally examined ESTUARDO PEREZ and documented this H&P. The patient is a 67 year old M who presented with a patient stated chief complaint of [SOB]. Source of Information: patient, EMS Exam Limitations: no limitations History of Present Illness: Patient is 67 year old female with PMH significant for paroxysmal atrial fibrillation on telemetry class, COPD on 2 L home oxygen, paraplegia as a result of spinal epidural abscess with chronic Orellana catheter for neurogenic bladder, hypertension, hyperlipidemia, CAD s/p PCI 2003 and 2005, aortic valve endocarditis who presented to ED with chief complaint of shortness of breath. Patient reported that last week he started to have shortness of breath that didn 't improve with home nrbolizers, associated with cough of green sputum, denied fever, chills, nasal congestion, ear pain, headache, dizziness, sick contact. Patient denied chest pain, palpitation. Patient had Orellana catheter changed last week however started to leak yesterday, ER nurse was unable to change it because of pineal retraction. Patient denied any abnormal dysuria, has chronic dysuria, change in color of urine. Follow-up with cardiology in [place] and Dr. Diaz electric meter technician. Allergies/Medications Allergies: Coded Allergies: heparin (Intermediate, SWELLING, RASH 03/07/17) vancomycin (Intermediate, HIVES, SKIN CRACKES, TURNS RED, SWELLS AND PEELS 03/07) warfarin (From COUMADIN) (Intermediate, RASH 03/07/17) Home Med list Acetaminophen (Tylenol Arthritis) 650 MG TABLET.ER 1 TAB PO Q6-PRN PRN PAIN ( Reported) Albuterol Sulfate (Ventolin Hfa) 90 MCG HFA.AER.AD 2 PUF INH AD PRN COPD ( Reported) Apixaban (Eliquis) 5 MG TABLET 5 MG PO BID atrial fibrillation Ascorbate Calcium (Vitamin C) 500 MG TABLET 1 TAB PO BID SUPPLEMENT (Reported ) Atomoxetine HCl (Strattera) 40 MG CAPSULE 1 CAP PO QAM MENTAL HEALTH ( Reported) Baclofen 20 MG TABLET 1 TAB PO BID MUSCLE RELAXER (Reported) Bisacodyl (Dulcolax) 10 MG SUPP.RECT 1 SUP RC Q48 GI (Reported) Budesonide/Formoterol Fumarate (Symbicort 80-4.5 Mcg Inhaler) 80 MCG-4.5 MCG/ ACTUATION HFA.AER.AD 2 PUF INH BID COPD (Reported) Docusate Sodium (Stool Softener) 100 MG CAPSULE 1 CAP PO DAILY STOOL SOFTENER (Reported) Doxycycline Hyclate 100 MG CAPSULE 1 CAP PO BID infection (Reported) Evolocumab (Repatha Sureclick) 140 MG/ML PEN.INJCTR 1 ML SC Q 2 WEEKS CHOLESTEROL (Reported) Furosemide 20 MG TABLET 3 TAB PO Q48 DIURETIC (Reported) Gabapentin 600 MG TABLET 1 TAB PO TID NEUROPATHY (Reported) Guaifenesin (Mucinex) 600 MG TAB.ER.12H 2 TAB PO BID MUCUS (Reported) Lactobacillus Acidophilus (Acidophilus) 1 EACH CAPSULE 1 CAP PO BID PROBIOTIC (Reported) Lorazepam 1 MG TABLET 1 TAB PO BID ANXIETY (Reported) Magnesium Oxide (Magnesium) 400 MG CAPSULE 1 CAP PO 0600 SUPPLEMENT (Reported ) Metoprolol Succ XL (Toprol XL) 25 MG TAB 1 TAB PO DAILY HEART (Reported) Montelukast Sodium (Singulair) 10 MG TABLET 1 TAB PO DAILY ALLERGIES ( Reported) Multivitamin (Daily Value) 1 EACH TABLET 1 TAB PO DAILY VITAMIN SUPPORT ( Reported) Nortriptyline HCl 10 MG CAPSULE 1 CAP PO DAILY UNKNOWN (Reported) Omeprazole 20 MG CAPSULE.DR 1 CAP PO DAILY ACID REFLUX (Reported) Oxycodone HCl/Acetaminophen (Oxycodone-Acetaminophen 5-325) 5 MG-325 MG TABLET 1 TAB PO Q4H PRN PAIN (Reported) Potassium Chloride 20 MEQ TAB.ER.PRT 1 TAB PO DAILY SUPPLEMENT (Reported) Rifampin (Rifadin) 300 MG CAPSULE 300 MG PO BID MRSA (Reported) Rosuvastatin Calcium (Crestor) 5 MG TABLET 1 TAB PO DAILY CHOLESTEROL ( Reported) Sotalol (Betapace) 80 MG TABLET 80 MG PO BID AARYTHMIAS Tiotropium [place] (Spiriva) 18 MCG CAP.W.DEV 1 CAP INH DAILY BREATHING PROBLEMS (Reported) Trazodone HCl 50 MG TABLET 1 TAB PO QPM SLEEP (Reported) Past History Travel History Traveled to [place] past 21 day No Medical History Neurological: C6-7 ABSCESS PARAPLEGIA EENT: NONE Cardiovascular: AFIB, hypertension, hyperlipidemia, myocardial infarction Respiratory: asthma, COPD, OXYGEN DEPEND 2L Gastrointestinal: NONE Hepatic: NONE Renal: neurogenic bladder Musculoskeletal: PARAPLEGIA R/T ABSCESS Psychiatric: NONE Endocrine: NONE Blood Disorders: NONE Cancer(s): NONE 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 Ambulation: wheelchair IADLs Independent: shopping, housework, finances, food prep, telephone, transportation , medication admin. Review of Systems Review of Systems Constitutional: Reports: see HPI. Denies: chills, fever, malaise. EENTM: Denies: blurred vision, nasal pain, throat pain. Cardiovascular: Denies: chest pain, palpitations. Respiratory: Reports: cough, short of breath, wheezing. GI: Denies: abdominal pain, bloating, constipation, diarrhea, nausea, vomiting. Genitourinary: Denies: hematuria. Musculoskeletal: Denies: back pain, joint pain. Skin: Denies: rash. Exam & Diagnostic Data Last 24 Hrs of Vital Signs/I&O Vital Signs Date Time Temp Pulse Resp B/P B/P Pulse O2 O2 Flow FiO2 Mean Ox Delivery Rate 06/03 2121 86 140/86 06/03 2115 Nasal 4.0L Cannula 06/03 1841 98.8 94 18 142/84 95 06/03 1830 97 Nasal 3.0L Cannula 06/03 1830 97 Nasal 3.0L Cannula 06/03 1731 82 20 164/97 93 Nasal 3.0L Cannula 06/03 1424 98.6 83 20 190/77 95 Nasal 2.0L Cannula 06/03 1403 98 Nasal 2.0L Cannula 06/03 1237 98 Nasal 2.0L Cannula 06/03 1222 99 Nasal Cannula 06/03 1222 97.4 88 24 144/87 99 Nasal 3.0L Cannula Intake & Output 06/03 1600 06/03 0800 06/03 0000 Intake Total 0 Output Total Balance 0 Intake, Oral 0 Patient 105.687 kg Weight Weight Reported by Patient Measurement Method Physical Exam General Appearance Alert, Oriented X3, Cooperative, No Acute Distress Skin No Rashes, No Breakdown, No Significant Lesion Skin Temp/Moisture Exam: Warm/Dry HEENT Atraumatic, PERRLA, EOMI, Mucous Membr. moist/pink Neck Supple Lymphatic no cervical lymphadenopathy Cardiovascular Regular Rate, Normal S1, Normal S2, No Murmurs Lungs bilateral congested decrease air entery wide spread crackles Abdomen Normal Bowel Sounds, Soft, No Tenderness Neurological Normal Speech, Cranial Nerves 3-12 NL, Reflexes 2+, paraplagia Extremities No Clubbing, No Cyanosis, No Edema, Normal Pulses Assessment/Plan Assessment: Patient is 67 year old female with PMH significant for paroxysmal atrial fibrillation on telemetry class, COPD on 2 L home oxygen, paraplegia as a result of spinal epidural abscess with chronic Orellana catheter for neurogenic bladder, hypertension, hyperlipidemia, CAD s/p PCI 2003 and 2005, aortic valve endocarditis who presented to ED with chief complaint of shortness of breath. On admission Vital signs temperature 97.4, pulse 88 regular, blood pressure 144/87 with saturation 99% on 3 L Labs pertinent to leukocytosis 14.8 with left shift but no bands, H&H 13/41, sodium 141, potassium 5, chloride 87, bicarbonate 45, BUN/creatinine 17/0.6, glucose 123, proBNP 1770, chest x-ray didn't show any signs of consolidation however left retrocardiac area wasn't well-visualized EKG Sinus ryth Problem list #COPD #Community-acquired pneumonia institution of shortness of breath, cough, leukocytosis #Hypertension #Hyperlipidemia #Neurogenic Orellana catheter with leak Plan -Please admit to general medical floor -Solu-Medrol 40 every 8 -Start ceftriaxone and azithromycin -Pulmonary consultation Myles Jc MD was placed for a.m. -TRC and banner -Urology consultation in a.m. 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 COPD Core Measures/Misc (02/06) Acute Coronary Syndrome ACS Diagnosis: No Congestive Heart Failure Congestive Heart Failure Diagnosis No Cerebrovascular Accident CVA/TIA Diagnosis: No VTE (View Protocol) VTE Risk Factors Age>40 No Mechanical VTE Prophylaxis d/t N/A MechProphylax Ordered No VTE Pharm Prophylaxis d/t NA PharmProphylax ordered Sepsis (View protocol) Sepsis Present: No Lissa Hare MD 06/03/174: Attending MD Review Statement Attending Statement Attending MD Statement: examined this patient, discuss w/resident/PA/SUPERVISOR ACCOUNTS RECEIVABLE, agreed w/resident/PA/SUPERVISOR ACCOUNTS RECEIVABLE, reviewed EMR data (avail) Attending Assessment/Plan: Presentationc onsistent with COPD exacerbation in long time former smoker. IV Solumedrol, Azithromycin, pulmonary consult, nebulizer treatments, continue home medications, evaluation for possible thoracentesis
[2017-06-03 22:50] VITALS: BP 140/86
--- NOTE | 2017-06-03 23:05 | Event Note ---
Event Note Event Note: Situation: Rapid response was called as the patient was unarousable, lethargic Background: Patient is 67 year old man with PMH significant for paroxysmal atrial fibrillation , COPD on 2 L home oxygen, JELANI on nocturnal Bipap, paraplegia as a result of spinal epidural abscess with chronic Orellana catheter for neurogenic bladder, hypertension, hyperlipidemia, CAD s/p PCI 2003 and 2005, aortic valve endocarditis who presented to ED with chief complaint of shortness of breath admitted for COPD exacerbation On examination: BP: 140/86, HR:72, O2:93 ON Bipap, rr: 20, blood sugar: 138 Patient was sleeping, he woke up later, neurologic examination was normal, he was responding to our question appropriately. Later on at about 2 am: Nursing staff was still concerned about that the patient is not arousable to sternal rub, when we revised his medication he received Gabapentin, baclofen and percocet all around 9 pm. Assessment and plan: #Patient was in deep sleep after he was started on Bipap, we did an ABG which showed:7.43, 65, 63, 42, 92 I asked the respiratory therapiest to increase Ipap to 24 instead of 22, to try to wash out CO2, and to repeated ABG again at 5 am, when the nurses called us again around 2 am I went again to see the patient and 1 dose of IV narcan was ordered even before we had the Utox, however, patient didn't respond to narcan, it was very unlikely that the patient has an acute event, so we decided to wait for a repeated ABG, Me and attending went again to check on the patient at 4 am and we made the decision to order a stat ct- head after getting ABG, patient immediately woke up after the ABG injection, and he was angry that we woke him up, he refused to have CT-head. ABG at 5am showed improvement: 7.44, 57, 67, 38, 94
[2017-06-04 06:58] VITALS: BP 130/70
[2017-06-04 09:50] LABS: ABSOLUTE BASOPHIL COUNT 0.1 /CUMM (0.0-0.2); ABSOLUTE EOSINOPHIL COUNT 0 /CUMM (0.0-0.7); ABSOLUTE GRANULOCYTE CT 11.1 /CUMM (1.4-6.5); ABSOLUTE LYMPH COUNT 2.3 /CUMM (1.2-3.4); ABSOLUTE MONOCYTE COUNT 1.3 /CUMM (0.10-0.60); BASOPHIL % 0.4 % (0.0-2.0); EOSINOPHIL % 0.3 % (0-5); MEAN CORPUSCULAR HGB 29.4 PG (27.0-31.0); MEAN CORPUSCULAR HGB CONC 31.7 G/DL (33.0-37.0); MEAN CORPUSCULAR VOLUME 92.8 FL (80.0-94.0); MEAN PLATELET VOLUME 8.3 FL (7.4-10.4); PLATELET COUNT 257 /CUMM (130-400); RBC DISTRIBUTION WIDTH 14.8 % (11.5-14.5); RED BLOOD CELL CT 3.78 /CUMM (4.70-6.10); WHITE BLOOD CELL COUNT 14.8 /CUMM (4.8-10.8)
--- NOTE | 2017-06-04 13:47 | Cons- Pulmonary ---
General Information and HPI Consulting Request Date of Consult: 06/04/17 Requested By: Med team History of Present Illness: Patient is 67 year old female with PMH significant for paroxysmal atrial fibrillation, COPD on 2 L home oxygen, paraplegia as a result of spinal epidural abscess with chronic Li catheter for neurogenic bladder, hypertension, hyperlipidemia, CAD s/p PCI 2003 and 2005, h/o aortic valve endocarditis who presented to ED with chief complaint of shortness of breath. Patient reported that last week he started to have shortness of breath that didn't improve with home nrbolizers, associated with cough of green sputum, denied fever, chills, nasal congestion, ear pain, headache, dizziness, sick contact. Patient denied chest pain, palpitation. Patient had Li catheter changed last week however started to leak yesterday, ER nurse was unable to change it because of pineal retraction. Patient denied any abnormal dysuria, has chronic dysuria, change in color of urine He does have yadira and uses cpap, however he has had issues with his machine lately Last night pt says he was in deep sleep and was woken up as he was thought to have sig apnea Has a chronic indwelling li Review of Systems Constitutional: Reports: see HPI. Denies: chills, fever, malaise. EENTM: Denies: blurred vision, nasal pain, throat pain. Cardiovascular: Denies: chest pain, palpitations. Respiratory: Reports: cough, short of breath, wheezing. GI: Denies: abdominal pain, bloating, constipation, diarrhea, nausea, vomiting. Genitourinary: Denies: hematuria. Musculoskeletal: Denies: back pain, joint pain. Skin: Denies: rash. Allergies/Medications Allergies: Coded Allergies: heparin (Intermediate, SWELLING, RASH 03/07/17) vancomycin (Intermediate, HIVES, SKIN CRACKES, TURNS RED, SWELLS AND PEELS 03/07) warfarin (From COUMADIN) (Intermediate, RASH 03/07/17) Home Med List: Acetaminophen (Tylenol Arthritis) 650 MG TABLET.ER 1 TAB PO Q6-PRN PRN PAIN ( Reported) Albuterol Sulfate (Ventolin Hfa) 90 MCG HFA.AER.AD 2 PUF INH AD PRN COPD ( Reported) Apixaban (Eliquis) 5 MG TABLET 5 MG PO BID atrial fibrillation Ascorbate Calcium (Vitamin C) 500 MG TABLET 1 TAB PO BID SUPPLEMENT (Reported ) Atomoxetine HCl (Strattera) 40 MG CAPSULE 1 CAP PO QAM MENTAL HEALTH ( Reported) Baclofen 20 MG TABLET 1 TAB PO BID MUSCLE RELAXER (Reported) Bisacodyl (Dulcolax) 10 MG SUPP.RECT 1 SUP RC Q48 GI (Reported) Budesonide/Formoterol Fumarate (Symbicort 80-4.5 Mcg Inhaler) 80 MCG-4.5 MCG/ ACTUATION HFA.AER.AD 2 PUF INH BID COPD (Reported) Docusate Sodium (Stool Softener) 100 MG CAPSULE 1 CAP PO DAILY STOOL SOFTENER (Reported) Doxycycline Hyclate 100 MG CAPSULE 1 CAP PO BID infection (Reported) Evolocumab (Repatha Sureclick) 140 MG/ML PEN.INJCTR 1 ML SC Q 2 WEEKS CHOLESTEROL (Reported) Furosemide 20 MG TABLET 3 TAB PO Q48 DIURETIC (Reported) Gabapentin 600 MG TABLET 1 TAB PO TID NEUROPATHY (Reported) Guaifenesin (Mucinex) 600 MG TAB.ER.12H 2 TAB PO BID MUCUS (Reported) Lactobacillus Acidophilus (Acidophilus) 1 EACH CAPSULE 1 CAP PO BID PROBIOTIC (Reported) Lorazepam 1 MG TABLET 1 TAB PO BID ANXIETY (Reported) Magnesium Oxide (Magnesium) 400 MG CAPSULE 1 CAP PO 0600 SUPPLEMENT (Reported ) Metoprolol Succ XL (Toprol XL) 25 MG TAB 1 TAB PO DAILY HEART (Reported) Montelukast Sodium (Singulair) 10 MG TABLET 1 TAB PO DAILY ALLERGIES ( Reported) Multivitamin (Daily Value) 1 EACH TABLET 1 TAB PO DAILY VITAMIN SUPPORT ( Reported) Nortriptyline HCl 10 MG CAPSULE 1 CAP PO DAILY UNKNOWN (Reported) Omeprazole 20 MG CAPSULE.DR 1 CAP PO DAILY ACID REFLUX (Reported) Oxycodone HCl/Acetaminophen (Oxycodone-Acetaminophen 5-325) 5 MG-325 MG TABLET 1 TAB PO Q4H PRN PAIN (Reported) Potassium Chloride 20 MEQ TAB.ER.PRT 1 TAB PO DAILY SUPPLEMENT (Reported) Rifampin (Rifadin) 300 MG CAPSULE 300 MG PO BID MRSA (Reported) Rosuvastatin Calcium (Crestor) 5 MG TABLET 1 TAB PO DAILY CHOLESTEROL ( Reported) Sotalol (Betapace) 80 MG TABLET 80 MG PO BID AARYTHMIAS Tiotropium [place] (Spiriva) 18 MCG CAP.W.DEV 1 CAP INH DAILY BREATHING PROBLEMS (Reported) Trazodone HCl 50 MG TABLET 1 TAB PO QPM SLEEP (Reported) Review of Systems Review of Systems Constitutional: Reports: see HPI. Past History Travel History Traveled to [place] past 21 day No Medical History Blood Transfusion Hx: Yes Neurological: C6-7 ABSCESS PARAPLEGIA EENT: NONE Cardiovascular: AFIB, hypertension, hyperlipidemia, myocardial infarction Respiratory: asthma, COPD, OXYGEN DEPEND 2L Gastrointestinal: NONE Hepatic: NONE Renal: neurogenic bladder Musculoskeletal: PARAPLEGIA R/T ABSCESS Psychiatric: NONE Endocrine: NONE Blood Disorders: NONE Cancer(s): NONE SANDER AND BUFFER/Reproductive: NONE Surgical History Surgical History: non-contributory Family History Relations & Conditions If Any: Relation not specified for: *No pertinent family history Psychosocial History Where Do You Live? Home Who Do You Live With? partner Services at Home: Home Health Aide, [employer] MORNING [employer] EVEN[employer] Primary Language: Faroese Smoking Status: Never Smoked ETOH Use: denies use Illicit Drug Use: denies illicit drug use Functional Ability ADLs Needs Assist: dressing, eating, toileting, bathing. Ambulation: wheelchair IADLs Independent: shopping, housework, finances, food prep, telephone, transportation , medication admin. Exam & Diagnostic Data Last 24 Hrs of Vital Signs/I&O Vital Signs Date Time Temp Pulse Resp B/P B/P Pulse O2 O2 Flow FiO2 Mean Ox Delivery Rate 06/04 1127 96 Nasal 2.0L Cannula 06/04 0805 99 Nasal 4.0L Cannula 06/04 0658 98.2 74 20 130/70 99 BIPAP 06/04 0445 82 93 06/04 0030 69 92 06/04 0000 BIPAP 06/03 2250 98.1 72 20 140/86 93 BIPAP 06/03 2121 86 140/86 06/03 2115 Nasal 4.0L Cannula 06/03 1841 98.8 94 18 142/84 95 06/03 1830 97 Nasal 3.0L Cannula 06/03 1830 97 Nasal 3.0L Cannula 06/03 1731 82 20 164/97 93 Nasal 3.0L Cannula 06/03 1424 98.6 83 20 190/77 95 Nasal 2.0L Cannula 06/03 1403 98 Nasal 2.0L Cannula Intake & Output 06/04 1600 06/04 0800 06/04 0000 Intake Total 1120 370 Output Total 800 200 Balance 320 170 Intake, IV 1000 250 Intake, Oral 120 120 Output, Urine 800 200 Patient 222 lb Weight Weight Bed scale Measurement Method Last 48 Hrs of Labs/Bryan: Laboratory Tests 06/04/17 0752: Anion Gap 7, Estimated GFR > 60, BUN/Creatinine Ratio 40.0 H, CBC w Diff NO MAN DIFF REQ, RBC 3.78 L, MCV 92.8, MCH 29.4, RDW 14.8 H, MPV 8.3, Gran % 75.0, Lymphocytes % 15.7 L, Monocytes % 8.6, Eosinophils % 0.3, Basophils % 0.4, Absolute Granulocytes 11.1 H, Absolute Lymphocytes 2.3, Absolute Monocytes 1.3 H, Absolute Eosinophils 0, Absolute Basophils 0.1, PUBS MCHC 31.7 L 06/04/17 0450: pH 7.44, pCO2 57 H, pO2 67 L, HCO3 38 H, ABG O2 Sat (Measured) 94.0 L, P-50 (Temp Corrected) Y, Carboxyhemoglobin 0 L, O2 Concentration % 35%, Temperature 98.1, Respiration Rate 26, O2 Delivery Method VISION-FFM, Vent Mode ST, Expiratory Pressure 6, Inspiratory Pressure 24, Phlebotomy Draw Site RIGHT RADIAL 06/04/17 0230: Urine Opiates Screen < 100.00, Methadone Screen < 40, Barbiturate Screen < 60, Ur Phencyclidine Scrn < 6.00, Amphetamines Screen < 100, U Benzodiazepines Scrn < 85, Urine Cocaine Screen < 50, Urine Cannabis Screen < 5.00, Urinalysis MOD H , Urine Color YEL, Urine Clarity TURBD H, Urine pH 7.0, Ur Specific [place] 1.025, Urine Protein TRACE H, Urine Ketones 15 H, Urine Nitrite POS H, Urine Bilirubin NEG, Urine Urobilinogen 0.2, Ur Leukocyte Esterase LARGE H, Ur Microscopic SEDIMENT EXAMINED, Urine RBC 15-25 H, Urine WBC > 75 H, Urine Bacteria MOD H, Urine Mucus FEW, Urine Hemoglobin MOD H, Urine Glucose NEG 06/04/17 0035: pH 7.43, pCO2 65 *H, pO2 63 L, HCO3 42 H, ABG O2 Sat (Measured) 92.0 L, P-50 (Temp Corrected) Y, Carboxyhemoglobin 0.7 L, O2 Concentration % 35%, Temperature 98.1, Respiration Rate 26, O2 Delivery Method VISION--FFM, Vent Mode ST, Expiratory Pressure 6, Inspiratory Pressure 22, Phlebotomy Draw Site RIGHT RADIAL 06/03/17 2325: Anion Gap 8, Estimated GFR > 60, BUN/Creatinine Ratio 34.0 H, Magnesium 1.9 06/03/17 1231: Anion Gap 9, Estimated GFR > 60, BUN/Creatinine Ratio 34.0 H, Glucose 123 H, Calcium 9.5, Magnesium 2.1, Troponin I < 0.01, [id number] Pept 1770 H, CBC w Diff NO MAN DIFF REQ, RBC 4.47 L, MCV 91.7, MCH 29.1, RDW 14.3, MPV 7.9, Gran % 76.3 H, Lymphocytes % 15.6 L, Monocytes % 6.1, Eosinophils % 1.4, Basophils % 0.6, Absolute Granulocytes 11.3 H, Absolute Lymphocytes 2.3, Absolute Monocytes 0.9 H, Absolute Eosinophils 0.2, Absolute Basophils 0.1, PUBS MCHC 31.7 L Microbiology 06/03 1700 NASOPHARYN: Influenza Virus A & B Rapid Smear - COMP Assessment/Plan Impression/Plan: CXr reviewed IMPRESSION: No definite evidence of pneumonia although the left retrocardiac region is not well evaluated. Consider follow-up examination if clinically indicated. Physical Exam General Appearance Alert, Oriented X3, Cooperative, No Acute Distress Skin No Rashes, No Breakdown, No Significant Lesion Skin Temp/Moisture Exam: Warm/Dry HEENT Atraumatic, PERRLA, EOMI, Mucous Membr. moist/pink Neck Supple Lymphatic no cervical lymphadenopathy Cardiovascular Regular Rate, Normal S1, Normal S2, No Murmurs Lungs bilateral congested decrease air entery wide spread crackles Abdomen Normal Bowel Sounds, Soft, No Tenderness Neurological Normal Speech, Cranial Nerves 3-12 NL, Reflexes 2+, paraplagia Extremities No Clubbing, No Cyanosis, No Edema, Normal Pulses IMRESSION atient is 67 year old female with PMH significant for paroxysmal atrial fibrillation, COPD on 2 L home oxygen, YADIRA on cpap, paraplegia as a result of spinal epidural abscess with chronic Li catheter for neurogenic bladder, hypertension, hyperlipidemia, CAD s/p PCI 2003 and 2005, h/o aortic valve endocarditis, with * Acute exacerbation of COPD with acute bronchitis. * Chronic hypercarbic respiratory failure. * History of uncontrolled obstructive sleep apnea * Atrial fibrillation - on Eliquis. * Hypertension / History of CAD s/p stent placement. * Neurogenic bladder. * Chronic muscle spasms. * Paraplegia secondary, on chronic rifampin and doxycycline for suppressive therapy. * GERD, on omeprazole. REC Cont steroids and abx REduce steroidst o 60 mg / day Cont all supp abx Watch blood work Cont apixaban Cpap at hs ( if home settings are not available use cpap of 8) Consult Acknowledgment - Thank you for your consult request.
--- NOTE | 2017-06-04 19:44 | PN- Att Addend ---
Attending Addendum Attending Brief Note 67M PMH paroxysmal atrial fibrillation on Eliquis, COPD on 2 L home oxygen, paraplegia as a result of spinal epidural abscess with chronic Orellana catheter for neurogenic bladder, hypertension, hyperlipidemia, CAD s/p PCI 2003 and 2005 presenting with 4 days of worsening shortness of breath and dyspnea with minimal exertion. Mild cough without sputum. No sick contacts. Requiring increased oxygen, now at 2L. CXR inconclusive. Wheezing on exam but slightly improved from yesterday. Became somnolent and unrousable overnight, given Narcan with no improvement, ABG done, awoke after prompting. AFVSS NAD, comfortable, full sentences NCAT Supple RRR Bilateral wheezing Soft, NTND No c/c/e A&Ox3 no focal deficits Current Medications Sig/Danni Start time Last Medication Dose Route Stop Time Status Admin Acetaminophen 650 MG .STK-MED ONE 06/04 0926 DC PO 06/04 0927 Acetaminophen 650 MG Q6P PRN 06/03 1800 AC 06/04 PO 0932 Albuterol Sulfate 3 ML EVERY 4 HRS/AWAKE 06/04 0800 AC 06/04 INH 1600 Albuterol Sulfate 2 PUF Q4P PRN 06/03 1815 AC INH Apixaban 5 MG BID 06/03 2200 AC 06/04 PO 0933 Atorvastatin Calcium 5 MG DAILY 06/04 1000 AC 06/04 PO 0932 Azithromycin 500 MG DAILY@1900 06/03 1900 AC 06/04 Sodium Chloride 250 ML IV 1822 Baclofen 20 MG BID 06/03 2200 DC 06/03 PO 2120 Bisacodyl 10 MG ONCE ONE 06/04 1345 DC 06/04 MI 06/04 1346 1437 Budesonide/ 2 PUF BID 06/03 2200 AC 06/04 Formoterol Fumarate INH 0932 Ceftriaxone Sodium 1,000 MG DAILY@1900 06/03 1900 AC 06/04 IV 1823 Docusate Sodium 100 MG DAILY 06/04 1000 AC 06/04 PO 0933 Furosemide 60 MG Q48 06/05 1000 AC PO Gabapentin 600 MG Q8 06/03 2200 DC 06/03 PO 2120 Guaifenesin 1,200 MG BID 06/03 2200 AC 06/04 PO 0933 Methylprednisolone 60 MG DAILY 06/05 1000 AC IV Methylprednisolone 40 MG Q8 06/03 2200 DC 06/04 IV 1436 Metoprolol Succinate 25 MG DAILY 06/03 1921 AC 06/04 PO 0933 Naloxone HCl 0.4 MG ONCE ONE 06/04 0300 DC 06/04 IV 06/04 0301 0312 Nortriptyline HCl 10 MG DAILY 06/03 1920 AC 06/04 PO 1437 Omeprazole 20 MG DAILY 06/03 1921 AC 06/04 PO 0933 Oxycodone/ 1 TAB ONCE ONE 06/04 1345 DC Acetaminophen PO 06/04 1346 Oxycodone/ 1 TAB ONCE ONE 06/04 1000 DC 06/04 Acetaminophen PO 06/04 1001 1016 Oxycodone/ 1 TAB Q4H PRN 06/03 2199 DC Acetaminophen PO Potassium Chloride 40 MEQ ONCE ONE 06/04 1745 DC 06/04 PO 06/04 1746 1822 Rifampin 300 MG BID 06/03 2199 AC 06/04 PO 0933 Sodium Chloride 1,000 ML BOLUS ONE 06/04 0230 DC 06/04 IV 06/04 0429 0238 Sotalol HCl 80 MG BID 06/03 2199 AC 06/04 PO 0933 Tiotropium [place] 1 PUF DAILY 06/03 1923 AC 06/04 INH 0932 Laboratory Tests 06/04 06/04 0752 0450 Blood Gas pH (7.35 - 7.45 PH) 7.44 pCO2 (35 - 45 TORR) 57 H pO2 (80 - 100 TORR) 67 L HCO3 (21 - 28 MEQ/L) 38 H ABG O2 Sat (Measured) (>96.0 %) 94.0 L P-50 (Temp Corrected) Y Carboxyhemoglobin (1.5 - 5.0 %) 0 L O2 Concentration % 35% Temperature (97.0 - 100.0 FARH) 98.1 Respiration Rate (BPM) 26 O2 Delivery Method VISION-FFM Vent Mode ST Expiratory Pressure (CM H2O P) 6 Inspiratory Pressure (CM H2O P) 24 Chemistry Sodium (137 - 145 mmol/L) 142 Potassium (3.5 - 5.1 mmol/L) 3.5 Chloride (98 - 107 mmol/L) 102 Carbon Dioxide (22 - 30 mmol/L) 33 H Anion Gap (5 - 16) 7 BUN (9 - 20 mg/dL) 16 Creatinine (0.7 - 1.2 mg/dL) 0.4 L Estimated GFR (>60 ml/min) > 60 BUN/Creatinine Ratio (7 - 25 %) 40.0 H Hematology CBC w Diff NO MAN DIFF REQ WBC (4.8 - 10.8 /CUMM) 14.8 H RBC (4.70 - 6.10 /CUMM) 3.78 L Hgb (14.0 - 18.0 G/DL) 11.1 L Hct (42 - 52 %) 35.0 L MCV (80.0 - 94.0 FL) 92.8 MCH (27.0 - 31.0 PG) 29.4 RDW (11.5 - 14.5 %) 14.8 H Plt Count (130 - 400 /CUMM) 257 MPV (7.4 - 10.4 FL) 8.3 Gran % (42.2 - 75.2 %) 75.0 Lymphocytes % (20.5 - 51.1 %) 15.7 L Monocytes % (1.7 - 9.3 %) 8.6 Eosinophils % (0 - 5 %) 0.3 Basophils % (0.0 - 2.0 %) 0.4 Absolute Granulocytes (1.4 - 6.5 /CUMM) 11.1 H Absolute Lymphocytes (1.2 - 3.4 /CUMM) 2.3 Absolute Monocytes (0.10 - 0.60 /CUMM) 1.3 H Absolute Eosinophils (0.0 - 0.7 /CUMM) 0 Absolute Basophils (0.0 - 0.2 /CUMM) 0.1 PUBS MCHC (33.0 - 37.0 G/DL) 31.7 L Miscellaneous Phlebotomy Draw Site RIGHT RADIAL 06/04 06/04 0230 0035 Blood Gas pH (7.35 - 7.45 PH) 7.43 pCO2 (35 - 45 TORR) 65 *H pO2 (80 - 100 TORR) 63 L HCO3 (21 - 28 MEQ/L) 42 H ABG O2 Sat (Measured) (>96.0 %) 92.0 L P-50 (Temp Corrected) Y Carboxyhemoglobin (1.5 - 5.0 %) 0.7 L O2 Concentration % 35% Temperature (97.0 - 100.0 FARH) 98.1 Respiration Rate (BPM) 26 O2 Delivery Method VISION--FFM Vent Mode ST Expiratory Pressure (CM H2O P) 6 Inspiratory Pressure (CM H2O P) 22 Miscellaneous Phlebotomy Draw Site RIGHT RADIAL Toxicology Urine Opiates Screen (>2000 NG/ML) < 100.00 Methadone Screen (>300 NG/ML) < 40 Barbiturate Screen (>200 NG/ML) < 60 Ur Phencyclidine Scrn (>25 NG/ML) < 6.00 Amphetamines Screen (>1000 NG/ML) < 100 U Benzodiazepines Scrn (>200 NG/ML) < 85 Urine Cocaine Screen (>300 NG/ML) < 50 Urine Cannabis Screen (>50 NG/ML) < 5.00 Urines Urinalysis MOD H Urine Color (YEL,AMB,STR) YEL Urine Clarity (CLEAR) TURBD H Urine pH (5.0 - 8.0) 7.0 Ur Specific [place] (1.001 - 1.035) 1.025 Urine Protein (NEG,<30 MG/DL) TRACE H Urine Ketones (NEG) 15 H Urine Nitrite (NEG) POS H Urine Bilirubin (NEG) NEG Urine Urobilinogen (0.1 - 1.0 EU/dl) 0.2 Ur Leukocyte Esterase (NEG) LARGE H Ur Microscopic SEDIMENT EXAMINED Urine RBC (0 - 5 /HPF) 15-25 H Urine WBC (0 - 2 /HPF) > 75 H Urine Bacteria (NEG/NONE) MOD H Urine Mucus (FEW,NONE) FEW Urine Hemoglobin (NEG) MOD H Urine Glucose (N MG/DL) NEG 06/03 2325 Chemistry Sodium (137 - 145 mmol/L) 141 Potassium (3.5 - 5.1 mmol/L) 4.4 Chloride (98 - 107 mmol/L) 92 L Carbon Dioxide (22 - 30 mmol/L) 41 H Anion Gap (5 - 16) 8 BUN (9 - 20 mg/dL) 17 Creatinine (0.7 - 1.2 mg/dL) 0.5 L Estimated GFR (>60 ml/min) > 60 BUN/Creatinine Ratio (7 - 25 %) 34.0 H Magnesium (1.6 - 2.3 mg/dL) 1.9 Vital Signs Date Time Temp Pulse Resp B/P B/P Pulse O2 O2 Flow FiO2 Mean Ox Delivery Rate 06/04 1600 95 Nasal 2.0L Cannula 06/04 1127 96 Nasal 2.0L Cannula 06/04 0805 99 Nasal 4.0L Cannula 06/04 0800 95 Nasal 2.0L Cannula 06/04 0658 98.2 74 20 130/70 99 BIPAP 06/04 0445 82 93 06/04 0030 69 92 06/04 0000 BIPAP 06/03 2250 98.1 72 20 140/86 93 BIPAP 06/03 2121 86 140/86 06/03 2115 Nasal 4.0L Cannula Intake & Output 06/04 1600 06/04 0800 06/04 0000 Intake Total 750 1120 370 Output Total 351 800 200 Balance 399 320 170 Intake, IV 1000 250 Intake, Oral 750 120 120 Output, Stool 1 Output, Urine 350 800 200 Patient 100.471 kg Weight Weight Bed scale Measurement Method 1. COPD Exacerbation 2. Acute hypoxemic respiratory failure 3. Somnolence Plan - Continue on general medicine - Continue Solumedrol, taper tomorrow - Continue Ceftriaxone and Azithromycin - Nebulizer treatments - Sputum culture - Pulmonary consult - Continue to hold Baclofen and Gabapentin due to somnolence - Continue home medications - DVT PPx
[2017-06-04 22:33] VITALS: BP 150/70
[2017-06-05 07:07] VITALS: BP 152/84
[2017-06-05 09:39] LABS: ABSOLUTE BASOPHIL COUNT 0 /CUMM (0.0-0.2); ABSOLUTE EOSINOPHIL COUNT 0.4 /CUMM (0.0-0.7); ABSOLUTE GRANULOCYTE CT 10.1 /CUMM (1.4-6.5); ABSOLUTE LYMPH COUNT 2.5 /CUMM (1.2-3.4); ABSOLUTE MONOCYTE COUNT 1.1 /CUMM (0.10-0.60); BASOPHIL % 0.2 % (0.0-2.0); EOSINOPHIL % 2.7 % (0-5); GRANULOCYTE % 71.9 % (42.2-75.2); HEMATOCRIT 36.6 % (42-52); MEAN CORPUSCULAR HGB 29.4 PG (27.0-31.0); MEAN CORPUSCULAR HGB CONC 32.4 G/DL (33.0-37.0); MEAN CORPUSCULAR VOLUME 90.7 FL (80.0-94.0); MEAN PLATELET VOLUME 8.4 FL (7.4-10.4); PLATELET COUNT 281 /CUMM (130-400); RBC DISTRIBUTION WIDTH 14.2 % (11.5-14.5); RED BLOOD CELL CT 4.03 /CUMM (4.70-6.10); WHITE BLOOD CELL COUNT 14.1 /CUMM (4.8-10.8)
--- NOTE | 2017-06-05 13:15 | PN- Pulmonary ---
Subjective HPI/Critical Care Issues: Much improved stable Wheezing less Objective Current Medications: Current Medications Sig/Danni Start time Last Medication Dose Route Stop Time Status Admin Acetaminophen 650 MG Q6P PRN 06/03 1800 AC 06/04 PO 0932 Albuterol Sulfate 3 ML EVERY 4 HRS/AWAKE 06/04 0800 AC 06/05 INH 1006 Albuterol Sulfate 2 PUF Q4P PRN 06/03 1815 AC INH Apixaban 5 MG BID 06/03 2200 AC 06/05 PO 0948 Atorvastatin Calcium 5 MG DAILY 06/04 1000 AC 06/05 PO 0948 Azithromycin 500 MG DAILY@2100 06/04 2100 AC PO Azithromycin 500 MG DAILY@1900 06/03 1900 DC 06/04 Sodium Chloride 250 ML IV 1822 Bisacodyl 10 MG ONCE ONE 06/04 1345 DC 06/04 CT 06/04 1346 1437 Budesonide/ 2 PUF BID 06/03 2200 AC 06/05 Formoterol Fumarate INH 0947 Ceftriaxone Sodium 1,000 MG DAILY@1900 06/03 1900 AC 06/04 IV 1823 Docusate Sodium 100 MG DAILY 06/04 1000 AC 06/05 PO 0948 Furosemide 60 MG Q48 06/05 1000 AC 06/05 PO 0948 Guaifenesin 1,200 MG BID 06/03 2199 AC 06/05 PO 0948 Melatonin 10 MG ONCE ONE 06/04 2230 DC 06/04 PO 06/04 2231 2228 Methylprednisolone 60 MG DAILY 06/05 1000 AC 06/05 IV 0958 Methylprednisolone 40 MG Q8 06/03 2200 DC 06/04 IV 1436 Metoprolol Succinate 25 MG DAILY 06/03 1921 AC 06/05 PO 0949 Nortriptyline HCl 10 MG DAILY 06/03 1920 AC 06/05 PO 0948 Omeprazole 20 MG DAILY 06/03 1921 AC 06/05 PO 0948 Oxycodone/ 1 TAB ONCE ONE 06/04 1345 DC 06/04 Acetaminophen PO 06/04 1346 2022 Potassium Chloride 40 MEQ ONCE ONE 06/04 1745 DC 06/04 PO 06/04 1746 1822 Rifampin 300 MG BID 06/03 2199 AC 06/05 PO 0949 Sotalol HCl 80 MG BID 06/03 2199 AC 06/05 PO 0948 Tiotropium [place] 1 PUF DAILY 06/03 1923 AC 06/05 INH 0947 Vital Signs & I&O Last 24 Hrs of Vitals and I&O: Vital Signs Date Time Temp Pulse Resp B/P B/P Pulse O2 O2 Flow FiO2 Mean Ox Delivery Rate 06/05 0949 84 140/82 06/05 0816 92 Nasal 2.0L Cannula 06/05 0707 97.6 70 20 152/84 90 Nasal 2.0L Cannula 06/05 0016 77 97 06/05 0000 BIPAP 06/04 2235 72 97 06/04 2233 98.0 74 20 150/70 95 Nasal 2.0L Cannula 06/04 1600 Nasal 2.0L Cannula 06/04 1600 95 Nasal 2.0L Cannula Intake & Output 06/05 1600 06/05 0800 06/05 0000 Intake Total 600 Output Total 1999 300 550 Balance -1999 -300 50 Intake, Oral 600 Output, Urine 1999 300 550 Impression/Plan Impression/Plan Impression/Plan: CXr reviewed IMPRESSION: No definite evidence of pneumonia although the left retrocardiac region is not well evaluated. Consider follow-up examination if clinically indicated. Physical Exam General Appearance Alert, Oriented X3, Cooperative, No Acute Distress Skin No Rashes, No Breakdown, No Significant Lesion Skin Temp/Moisture Exam: Warm/Dry HEENT Atraumatic, PERRLA, EOMI, Mucous Membr. moist/pink Neck Supple Lymphatic no cervical lymphadenopathy Cardiovascular Regular Rate, Normal S1, Normal S2, No Murmurs Lungs bilateral congested decrease air entery wide spread crackles Abdomen Normal Bowel Sounds, Soft, No Tenderness Neurological Normal Speech, Cranial Nerves 3-12 NL, Reflexes 2+, paraplagia Extremities No Clubbing, No Cyanosis, No Edema, Normal Pulses IMRESSION atient is 67 year old female with PMH significant for paroxysmal atrial fibrillation, COPD on 2 L home oxygen, JELANI on cpap, paraplegia as a result of spinal epidural abscess with chronic Orellana catheter for neurogenic bladder, hypertension, hyperlipidemia, CAD s/p PCI 2003 and 2005, h/o aortic valve endocarditis, with * Acute exacerbation of COPD with acute bronchitis. * Chronic hypercarbic respiratory failure. * History of uncontrolled obstructive sleep apnea * Atrial fibrillation - on Eliquis. * Hypertension / History of CAD s/p stent placement. * Neurogenic bladder. * Chronic muscle spasms. * Paraplegia secondary, on chronic rifampin and doxycycline for suppressive therapy. * GERD, on omeprazole. REC Cont steroids and abx REduce steroidst to 60 mg / day change to po Cont all supp abx Watch blood work Cont apixaban Cpap at hs ( if home settings are not available use cpap of 8)
[2017-06-05 14:29] VITALS: BP 152/88
--- NOTE | 2017-06-05 16:58 | PN- Att Addend ---
See Addendum Attending Addendum Attending Brief Note 67M PMH paroxysmal atrial fibrillation on Eliquis, COPD on 2 L home oxygen, paraplegia as a result of spinal epidural abscess with chronic [place] catheter for neurogenic bladder, hypertension, hyperlipidemia, CAD s/p PCI 2003 and 2005 presenting with 4 days of worsening shortness of breath and dyspnea with minimal exertion. Mild cough without sputum. No sick contacts. Requiring increased oxygen, now at 2L. CXR inconclusive. Wheezing on exam but slightly improved from yesterday. AFVSS NAD, comfortable, full sentences NCAT Supple RRR Bilateral wheezing Soft, NTND No c/c/e A&Ox3 no focal deficits Current Medications Sig/Danni Start time Last Medication Dose Route Stop Time Status Admin Acetaminophen 650 MG Q6P PRN 06/03 1800 AC 06/04 PO 0932 Albuterol Sulfate 3 ML EVERY 4 HRS/AWAKE 06/04 0800 AC 06/05 INH 1345 Albuterol Sulfate 2 PUF Q4P PRN 06/03 1815 AC INH Apixaban 5 MG BID 06/03 2199 AC 06/05 PO 0948 Atorvastatin Calcium 5 MG DAILY 06/04 1000 AC 06/05 PO 0948 Azithromycin 500 MG DAILY@2100 06/04 2100 AC PO Azithromycin 500 MG DAILY@19006/03 1900 DC 06/04 Sodium Chloride 250 ML IV 1822 Budesonide/ 2 PUF BID 06/03 2199 AC 06/05 Formoterol Fumarate INH 0947 Ceftriaxone Sodium 1,000 MG DAILY@19006/03 1900 AC 06/04 IV 1823 Docusate Sodium 100 MG DAILY 06/04 1000 AC 06/05 PO 0948 Furosemide 60 MG Q48 06/05 1000 AC 06/05 PO 0948 Guaifenesin 1,200 MG BID 06/03 2199 AC 06/05 PO 0948 Melatonin 10 MG ONCE ONE 06/04 2230 DC 06/04 PO 06/04 2231 2228 Methylprednisolone 60 MG DAILY 06/05 1000 AC 06/05 IV 0958 Methylprednisolone 40 MG Q8 06/03 2199 DC 06/04 IV 1436 Metoprolol Succinate 25 MG DAILY 06/03 1921 AC 06/05 PO 0949 Nortriptyline HCl 10 MG DAILY 06/03 1920 AC 06/05 PO 0948 Omeprazole 20 MG DAILY 06/03 1921 AC 06/05 PO 0948 Potassium Chloride 40 MEQ ONCE ONE 06/04 1744 DC 06/04 PO 06/04 1746 1822 Rifampin 300 MG BID 06/03 2199 AC 06/05 PO 0949 Sotalol HCl 80 MG BID 06/03 2199 AC 06/05 PO 0948 Tiotropium Lead 1 PUF DAILY 06/03 1923 AC 06/05 INH 0947 Laboratory Tests 06/05 0815 Chemistry Sodium (137 - 145 mmol/L) 139 Potassium (3.5 - 5.1 mmol/L) 4.4 Chloride (98 - 107 mmol/L) 93 L Carbon Dioxide (22 - 30 mmol/L) 36 H Anion Gap (5 - 16) 9 BUN (9 - 20 mg/dL) 15 Creatinine (0.7 - 1.2 mg/dL) 0.4 L Estimated GFR (>60 ml/min) > 60 BUN/Creatinine Ratio (7 - 25 %) 37.5 H Hematology CBC w Diff NO MAN DIFF REQ WBC (4.8 - 10.8 /CUMM) 14.1 H RBC (4.70 - 6.10 /CUMM) 4.03 L Hgb (14.0 - 18.0 G/DL) 11.9 L Hct (42 - 52 %) 36.6 L MCV (80.0 - 94.0 FL) 90.7 MCH (27.0 - 31.0 PG) 29.4 RDW (11.5 - 14.5 %) 14.2 Plt Count (130 - 400 /CUMM) 281 MPV (7.4 - 10.4 FL) 8.4 Gran % (42.2 - 75.2 %) 71.9 Lymphocytes % (20.5 - 51.1 %) 17.5 L Monocytes % (1.7 - 9.3 %) 7.7 Eosinophils % (0 - 5 %) 2.7 Basophils % (0.0 - 2.0 %) 0.2 Absolute Granulocytes (1.4 - 6.5 /CUMM) 10.1 H Absolute Lymphocytes (1.2 - 3.4 /CUMM) 2.5 Absolute Monocytes (0.10 - 0.60 /CUMM) 1.1 H Absolute Eosinophils (0.0 - 0.7 /CUMM) 0.4 Absolute Basophils (0.0 - 0.2 /CUMM) 0 PUBS MCHC (33.0 - 37.0 G/DL) 32.4 L Vital Signs Date Time Temp Pulse Resp B/P B/P Pulse O2 O2 Flow FiO2 Mean Ox Delivery Rate 06/05 1429 98.2 84 22 152/88 95 Nasal 2.0L Cannula 06/05 0949 84 140/82 06/05 0816 92 Nasal 2.0L Cannula 06/05 0800 Nasal 2.0L Cannula 06/05 0707 97.6 70 20 152/84 90 Nasal 2.0L Cannula 06/05 0016 77 97 06/05 0000 BIPAP 06/045 72 97 06/04 2232 98.0 74 20 150/70 95 Nasal 2.0L Cannula Intake & Output 06/05 1600 06/05 0800 06/05 0000 Intake Total 600 Output Total 3850 300 550 Balance -3850 -300 50 Intake, Oral 600 Output, Urine 3850 300 550 1. COPD Exacerbation 2. Acute hypoxemic respiratory failure 3. Somnolence Plan - Continue on general medicine - Continue Solumedrol, taper tomorrow - Continue Ceftriaxone and Azithromycin - Nebulizer treatments - Sputum culture - Pulmonary consult - Continue to hold Baclofen and Gabapentin due to somnolence - Continue home medications - DVT PPx
[2017-06-05 22:38] VITALS: BP 156/78
[2017-06-06 06:59] VITALS: BP 152/74
--- NOTE | 2017-06-06 07:37 | PN- Housestaff ---
Richard VOGEL,[facility] 06/06/17 0736: Subjective Follow-up For: copd Subjective: No acute issues overnight. SOB improved. Review of Systems Constitutional: Reports: no symptoms. Cardiovascular: Reports: no symptoms. Respiratory: Reports: short of breath. Gastrointestinal: Reports: no symptoms. Genitourinary: Reports: no symptoms. Musculoskeletal: Reports: no symptoms. Skin: Reports: no symptoms. Objective Last 24 Hrs of Vital Signs/I&O Vital Signs Date Time Temp Pulse Resp B/P B/P Pulse O2 O2 Flow FiO2 Mean Ox Delivery Rate 06/06 2157 97.6 70 20 122/70 96 Nasal 2.0L Cannula 06/06 2134 82 96 06/06 1904 96 Nasal 2.0L Cannula 06/06 1600 95 Nasal 2.0L Cannula 06/06 1555 97 Nasal 2.0L Cannula 06/06 1442 98.4 77 20 145/82 95 06/06 0846 150/70 06/06 0830 98 Nasal 3.0L Cannula 06/06 0800 Nasal 2.0L Cannula 06/06 0659 98.0 70 20 152/74 95 Nasal 2.0L Cannula 06/06 0000 96 Nasal 2.0L Cannula 06/06 0000 78 97 Intake & Output 06/06 1600 06/06 0800 06/06 0000 Intake Total 250 250 Output Total 200 500 Balance 50 -250 Intake, IV 10 10 Intake, Oral 240 240 Output, Urine 200 500 Physical Exam General Appearance: Alert, Oriented X3, Cooperative Cardiovascular: Regular Rate, Normal S1, Normal S2 Lungs: decreased air movement. diffuse inspiratory rhonchi Abdomen: Normal Bowel Sounds, Soft, No Tenderness Vascular: 2+ radial pulses Other Physical Findings: dark orange/red urine in li which he states is normal color from rifampin Current Medications: Current Medications Sig/Danni Start time Last Medication Dose Route Stop Time Status Admin Acetaminophen 650 MG Q6P PRN 06/03 1800 AC 06/04 PO 0932 Albuterol Sulfate 3 ML EVERY 4 HRS/AWAKE 06/04 0800 AC 06/06 INH 1904 Albuterol Sulfate 2 PUF Q4P PRN 06/03 1815 AC INH Apixaban 5 MG BID 06/03 2200 AC 06/06 PO 211 Atorvastatin Calcium 5 MG DAILY 06/04 1000 AC 06/06 PO 0844 Azithromycin 500 MG DAILY@2100 06/04 2100 AC 06/06 PO 2116 Budesonide/ 2 PUF BID 06/03 2199 AC 06/06 Formoterol Fumarate INH 7 Ceftriaxone Sodium 1,000 MG DAILY@1900 06/03 1900 AC 06/06 IV 2038 Docusate Sodium 100 MG DAILY 06/04 1000 AC 06/06 PO 0846 Furosemide 60 MG Q48 06/05 1000 AC 06/05 PO 0948 Guaifenesin 1,200 MG BID 06/03 2199 AC 06/06 PO 2115 Melatonin 10 MG ONCE ONE 06/05 2300 DC 06/05 PO 06/05 2301 2311 Metoprolol Succinate 25 MG DAILY 06/03 1921 AC 06/06 PO 0846 Nortriptyline HCl 10 MG DAILY 06/03 1920 AC 06/06 PO 0845 Omeprazole 20 MG DAILY 06/03 1921 AC 06/06 PO 0846 Oxycodone/ 1 TAB Q4P PRN 06/06 1330 AC 06/06 Acetaminophen PO 2114 Oxycodone/ 1 TAB ONCE ONE 06/06 0330 DC 06/06 Acetaminophen PO 06/06 0331 0336 Potassium Chloride 40 MEQ ONCE ONE 06/06 1515 DC 06/06 PO 06/06 1516 1528 Prednisone 60 MG DAILY 06/06 1000 AC 06/06 PO 0846 Rifampin 300 MG BID 06/03 2199 AC 06/06 PO 211 Sotalol HCl 80 MG BID 06/03 2199 AC 06/06 PO 2115 Tiotropium [place] 1 PUF DAILY 06/03 192 AC 06/06 INH 0848 Last 24 Hrs of Lab/Bryan Results Last 24 Hrs of Labs/Mics: Laboratory Tests 06/06/17 0855: Anion Gap 10, Estimated GFR > 60, BUN/Creatinine Ratio 36.0 H, CBC w Diff NO MAN DIFF REQ, RBC 4.25 L, MCV 90.2, MCH 29.3, RDW 14.2, MPV 8.0, Gran % 71.4, Lymphocytes % 17.4 L, Monocytes % 8.2, Eosinophils % 2.7, Basophils % 0.3, Absolute Granulocytes 9.9 H, Absolute Lymphocytes 2.4, Absolute Monocytes 1.1 H, Absolute Eosinophils 0.4, Absolute Basophils 0, PUBS MCHC 32.5 L Microbiology 06/06 349 LOWER RESP: Respiratory Culture - RES 06/06 349 LOWER RESP: Gram Stain - RES Assessment/Plan Assessment: A: Patient is 67 year old female with PMH significant for paroxysmal atrial fibrillation on telemetry class, COPD on 2 L home oxygen, paraplegia as a result of spinal epidural abscess with chronic Li catheter for neurogenic bladder, hypertension, hyperlipidemia, CAD s/p PCI 2003 and 2005, aortic valve endocarditis who presented to ED with COPD exascerbation Plan: #COPD -cont po steroid taper, azothromycin/ceftriaxone, trc nebs, guaifensin, symbicort, spiriva -cont bipap at night -will need outpt pulm f/u for contunuation of bipap #hx of afib -cont apixaban #Hypertension -cont lasix, stotalol, metroprolol #Hyperlipidemia -cont atorvastatin #Neurogenic Li due to paraplegia #chronic pain -cont pain medications, nortryptiline #constipation -cont colace #hx of paraplegia due to abscess -cont rifampin #hx of gerd -omerapazole #dvt prophylaxis -apixaban #DNR DNI Problem List: 1. COPD (chronic obstructive pulmonary disease) Pain Ratin Pain Location: back Pain Goal: Pain 4 or less Pain Plan: pain pathway Tomorrow's Labs & Rationales: cbc bep Romelia Cobian 06/06/17 1253: Attending MD Review Statement Attending Statement Attending MD Statement: examined this patient, discuss w/resident/PA/HYDRAMATIC MECHANIC, agreed w/resident/PA/HYDRAMATIC MECHANIC, discussed with family, reviewed EMR data (avail), discussed with nursing, discussed with case mgmt, reviewed images, amended to note Attending Assessment/Plan: 67M PMH paroxysmal atrial fibrillation on Eliquis, COPD on 2 L home oxygen, paraplegia as a result of spinal epidural abscess with chronic Li catheter for neurogenic bladder, hypertension, hyperlipidemia, CAD s/p PCI 2003 and 2005 presenting with 4 days of worsening shortness of breath and dyspnea with minimal exertion. Mild cough without sputum. No sick contacts. Requiring increased oxygen, now at 2L. CXR inconclusive admitted here for COPD exacerbation and acute hypoxemic respiratory failure. Pulmonary consutled and recommend iv antibiotics with conversion of iv sterodis to PO steroids. Patient with overall improvement. Patient can be discharged in stable condition if ok with pulmonary.
[2017-06-06 09:25] LABS: ABSOLUTE BASOPHIL COUNT 0 /CUMM (0.0-0.2); ABSOLUTE EOSINOPHIL COUNT 0.4 /CUMM (0.0-0.7); ABSOLUTE GRANULOCYTE CT 9.9 /CUMM (1.4-6.5); ABSOLUTE LYMPH COUNT 2.4 /CUMM (1.2-3.4); ABSOLUTE MONOCYTE COUNT 1.1 /CUMM (0.10-0.60); BASOPHIL % 0.3 % (0.0-2.0); EOSINOPHIL % 2.7 % (0-5); GRANULOCYTE % 71.4 % (42.2-75.2); HEMATOCRIT 38.4 % (42-52); MEAN CORPUSCULAR HGB 29.3 PG (27.0-31.0); MEAN CORPUSCULAR HGB CONC 32.5 G/DL (33.0-37.0); MEAN CORPUSCULAR VOLUME 90.2 FL (80.0-94.0); PLATELET COUNT 282 /CUMM (130-400); RBC DISTRIBUTION WIDTH 14.2 % (11.5-14.5); RED BLOOD CELL CT 4.25 /CUMM (4.70-6.10); WHITE BLOOD CELL COUNT 13.9 /CUMM (4.8-10.8)
--- NOTE | 2017-06-06 13:46 | PN- Pulmonary ---
Subjective HPI/Critical Care Issues: Patient seen and examined this morning. He appears to be doing somewhat better but continues to wheeze. Objective Current Medications: Current Medications Sig/Danni Start time Last Medication Dose Route Stop Time Status Admin Acetaminophen 650 MG Q6P PRN 06/03 1800 AC 06/04 PO 0932 Albuterol Sulfate 3 ML EVERY 4 HRS/AWAKE 06/04 0800 AC 06/06 INH 1224 Albuterol Sulfate 2 PUF Q4P PRN 06/03 1815 AC INH Apixaban 5 MG BID 06/03 2199 AC 06/06 PO 0846 Atorvastatin Calcium 5 MG DAILY 06/04 1000 AC 06/06 PO 0844 Azithromycin 500 MG DAILY@2100 06/04 2100 AC 06/05 PO 2206 Budesonide/ 2 PUF BID 06/03 2199 AC 06/06 Formoterol Fumarate INH 0848 Ceftriaxone Sodium 1,000 MG DAILY@19006/03 1900 AC 06/05 IV 1831 Docusate Sodium 100 MG DAILY 06/04 1000 AC 06/06 PO 0846 Furosemide 60 MG Q48 06/05 1000 AC 06/05 PO 0948 Guaifenesin 1,200 MG BID 06/03 2199 AC 06/06 PO 0846 Melatonin 10 MG ONCE ONE 06/05 2300 DC 06/05 PO 06/05 2301 2311 Methylprednisolone 60 MG DAILY 06/05 1000 DC 06/05 IV 0958 Metoprolol Succinate 25 MG DAILY 06/03 1921 AC 06/06 PO 0846 Nortriptyline HCl 10 MG DAILY 06/03 1920 AC 06/06 PO 0845 Omeprazole 20 MG DAILY 06/03 1921 AC 06/06 PO 0846 Oxycodone/ 1 TAB Q4P PRN 06/06 1330 AC 06/06 Acetaminophen PO 1329 Oxycodone/ 1 TAB ONCE ONE 06/06 0330 DC 06/06 Acetaminophen PO 06/06 0331 0336 Oxycodone/ 1 TAB ONCE ONE 06/05 1900 DC 06/05 Acetaminophen PO 06/05 1901 1851 Prednisone 60 MG DAILY 06/06 1000 AC 06/06 PO 0846 Rifampin 300 MG BID 06/03 2200 AC 06/06 PO 0846 Sotalol HCl 80 MG BID 06/03 2200 AC 06/06 PO 0845 Tiotropium [place] 1 PUF DAILY 06/03 192 AC 06/06 INH 0848 Vital Signs & I&O Last 24 Hrs of Vitals and I&O: Vital Signs Date Time Temp Pulse Resp B/P B/P Pulse O2 O2 Flow FiO2 Mean Ox Delivery Rate 06/06 0846 150/70 06/06 0830 98 Nasal 3.0L Cannula 06/06 0800 Nasal 2.0L Cannula 06/06 0659 98.0 70 20 152/74 95 Nasal 2.0L Cannula 06/06 0000 96 Nasal 2.0L Cannula 06/06 0000 78 97 06/05 2238 98.1 85 24 156/78 96 Nasal 2.0L Cannula 06/05 2234 82 97 06/05 1700 97 Nasal 2.0L Cannula 06/05 1600 Nasal 2.0L Cannula 06/05 1429 98.2 84 22 152/88 95 Nasal 2.0L Cannula Intake & Output 06/06 1600 06/06 0800 06/06 0000 Intake Total 250 250 Output Total 200 500 Balance 50 -250 Intake, IV 10 10 Intake, Oral 240 240 Output, Urine 200 500 Exam Other Physical Findings: Patient is alert and oriented. Heart sounds are normal. He is wheezing bilaterally pearly with end expiration. No leg edema. Results Last 24 Hrs of Lab Results: Laboratory Tests 06/06/17 0855: Anion Gap 10, Estimated GFR > 60, BUN/Creatinine Ratio 36.0 H, CBC w Diff NO MAN DIFF REQ, RBC 4.25 L, MCV 90.2, MCH 29.3, RDW 14.2, MPV 8.0, Gran % 71.4, Lymphocytes % 17.4 L, Monocytes % 8.2, Eosinophils % 2.7, Basophils % 0.3, Absolute Granulocytes 9.9 H, Absolute Lymphocytes 2.4, Absolute Monocytes 1.1 H, Absolute Eosinophils 0.4, Absolute Basophils 0, PUBS MCHC 32.5 L Impression/Plan Impression/Plan Impression/Plan: Impression 67 year old man -acute COPD exacerbation, likely secondary to bronchitis -chronic hypercarbic respiratory failure Plan -nocturnal bipap -taper steroids as ordered -cont abx -needs to have a face to face in office for bipap continuation DVT prophylaxis at all times
[2017-06-06 14:42] VITALS: BP 145/82
[2017-06-06 21:58] VITALS: BP 122/70
[2017-06-07 07:18] VITALS: BP 136/70
[2017-06-07 08:31] LABS: ABSOLUTE BASOPHIL COUNT 0 /CUMM (0.0-0.2); ABSOLUTE EOSINOPHIL COUNT 0.3 /CUMM (0.0-0.7); ABSOLUTE GRANULOCYTE CT 7.2 /CUMM (1.4-6.5); ABSOLUTE LYMPH COUNT 2.8 /CUMM (1.2-3.4); ABSOLUTE MONOCYTE COUNT 0.9 /CUMM (0.10-0.60); BASOPHIL % 0.3 % (0.0-2.0); EOSINOPHIL % 2.8 % (0-5); GRANULOCYTE % 63.7 % (42.2-75.2); HEMATOCRIT 38.6 % (42-52); MEAN CORPUSCULAR HGB 29.5 PG (27.0-31.0); MEAN CORPUSCULAR HGB CONC 32.1 G/DL (33.0-37.0); MEAN CORPUSCULAR VOLUME 91.9 FL (80.0-94.0); MEAN PLATELET VOLUME 8.1 FL (7.4-10.4); PLATELET COUNT 292 /CUMM (130-400); RBC DISTRIBUTION WIDTH 14.6 % (11.5-14.5); WHITE BLOOD CELL COUNT 11.3 /CUMM (4.8-10.8)
--- NOTE | 2017-06-07 08:34 | PN- Housestaff ---
See Addendum Richard VOGEL,[facility] 06/07/17 0834: Subjective Follow-up For: copd Subjective: No acute events. States SOB better. Review of Systems Constitutional: Reports: no symptoms. Cardiovascular: Reports: no symptoms. Respiratory: Reports: short of breath. Gastrointestinal: Reports: no symptoms. Genitourinary: Reports: no symptoms. Musculoskeletal: Reports: no symptoms. Objective Last 24 Hrs of Vital Signs/I&O Vital Signs Date Time Temp Pulse Resp B/P B/P Pulse O2 O2 Flow FiO2 Mean Ox Delivery Rate 06/07 0909 70 132/84 06/07 0846 97 Nasal 2.0L Cannula 06/07 0800 Nasal 2.0L Cannula 06/07 0718 98.0 71 20 136/70 95 Nasal 2.0L Cannula 06/07 0159 97 Nasal 2.0L Cannula 06/07 0025 74 93 06/07 0000 Nasal 2.0L Cannula Intake & Output 06/07 1600 06/07 0800 06/07 0000 Intake Total 1000 120 120 Output Total 2400 700 Balance -1400 120 -580 Intake, Oral 1000 120 120 Output, Urine 2400 700 Physical Exam General Appearance: Alert, Oriented X3, Cooperative, No Acute Distress Cardiovascular: Regular Rate, Normal S1, Normal S2 Lungs: diffuse rhonchi Abdomen: Normal Bowel Sounds, Soft, No Tenderness Extremities: 2+ radial pulses Other Physical Findings: li has dark urine due to rifampin Current Medications: Current Medications Sig/Danni Start time Last Medication Dose Route Stop Time Status Admin Acetaminophen 650 MG .STK-MED ONE 06/07 0215 DC PO 06/07 0216 Acetaminophen 650 MG Q6P PRN 06/03 1800 DCD 06/07 PO 0217 Albuterol Sulfate 3 ML EVERY 4 HRS/AWAKE 06/04 0800 DCD 06/07 INH 1219 Albuterol Sulfate 2 PUF Q4P PRN 06/03 1815 DCD INH Apixaban 5 MG BID 06/03 2200 DCD 06/07 PO 0908 Atorvastatin Calcium 5 MG DAILY 06/04 1000 DCD 06/07 PO 0908 Azithromycin 500 MG DAILY@2100 06/04 2100 DCD 06/06 PO 2117 Budesonide/ 2 PUF BID 06/03 2200 DCD 06/07 Formoterol Fumarate INH 0907 Ceftriaxone Sodium 1,000 MG DAILY@1900 06/03 1900 DCD 06/06 IV 2038 Docusate Sodium 100 MG DAILY 06/04 1000 DCD 06/07 PO 0908 Furosemide 60 MG Q48 06/05 1000 DCD 06/07 PO 0908 Guaifenesin 1,200 MG BID 06/03 2199 DCD 06/07 PO 0908 Metoprolol Succinate 25 MG DAILY 06/03 1921 DCD 06/07 PO 0909 Nortriptyline HCl 10 MG DAILY 06/03 1920 DCD 06/07 PO 0908 Omeprazole 20 MG DAILY 06/03 1921 DCD 06/07 PO 0908 Oxycodone/ 1 TAB Q4P PRN 06/06 1330 DCD 06/07 Acetaminophen PO 1155 Prednisone 60 MG DAILY 06/06 1000 DCD 06/07 PO 0908 Rifampin 300 MG BID 06/03 2199 DCD 06/07 PO 0908 Sotalol HCl 80 MG BID 06/03 2199 DCD 06/07 PO 0909 Tiotropium [place] 1 PUF DAILY 06/03 1923 DCD 06/07 INH 0907 Last 24 Hrs of Lab/Bryan Results Last 24 Hrs of Labs/Mics: Laboratory Tests 06/07/17 0758: Anion Gap 8, Estimated GFR > 60, BUN/Creatinine Ratio 36.0 H, CBC w Diff NO MAN DIFF REQ, RBC 4.20 L, MCV 91.9, MCH 29.5, RDW 14.6 H, MPV 8.1, Gran % 63.7, Lymphocytes % 24.9, Monocytes % 8.3, Eosinophils % 2.8, Basophils % 0.3, Absolute Granulocytes 7.2 H, Absolute Lymphocytes 2.8, Absolute Monocytes 0.9 H, Absolute Eosinophils 0.3, Absolute Basophils 0, PUBS MCHC 32.1 L Assessment/Plan Assessment: A: Patient is 67 year old female with PMH significant for paroxysmal atrial fibrillation on telemetry class, COPD on 2 L home oxygen, paraplegia as a result of spinal epidural abscess with chronic Li catheter for neurogenic bladder, hypertension, hyperlipidemia, CAD s/p PCI 2003 and 2005, aortic valve endocarditis who presented to ED with COPD exascerbation Plan: #COPD -continue with po steroid taper, azothromycin/ceftriaxone, trc nebs, guaifensin, symbicort, spiriva -discharge with steroid taper and levoquin x 5 days. advised to f/u with pulmnologist -cont bipap at night -will need outpt pulm f/u for contunuation of bipap #hx of afib -cont apixaban #Hypertension -cont lasix, stotalol, metroprolol #Hyperlipidemia -cont atorvastatin #Neurogenic Li due to paraplegia #chronic pain -cont pain medications, nortryptiline #constipation -cont colace #hx of paraplegia due to abscess -cont rifampin #hx of gerd -omerapazole #dvt prophylaxis -apixaban #DNR DNI Problem List: 1. COPD (chronic obstructive pulmonary disease) Pain Ratin Pain Location: none Pain Goal: Pain 4 or less Pain Plan: pain pathway Tomorrow's Labs & Rationales: none Romelia Cobian 06/07/17 1140: Attending MD Review Statement Attending Statement Attending MD Statement: examined this patient, discuss w/resident/PA/DISTRIBUTION SALES REPRESENTATIVE, agreed w/resident/PA/DISTRIBUTION SALES REPRESENTATIVE, discussed with family, reviewed EMR data (avail), discussed with nursing, discussed with case mgmt, reviewed images, amended to note Attending Assessment/Plan: Patient feeling much better. Patient on PO steroids. Patient also found to have gram negative sputum and will be discharged on moxifloxacin PO.
--- NOTE | 2017-06-07 08:36 | Patient Discharge Instructions ---
Discharge Instructions General Discharge Information Special Instructions: Please follow up with your pcp in 1-2 weeks. Please follow up with your pulmnologist in 1-2 weeks. Acute Coronary Syndrome Inclusion Criteria At DC or during hospital stay patient has or had the following: ACS DIAGNOSIS No Discharge Core Measures Meds if any: Prescribed or Continued at Discharge Meds if any: NOT Prescribed or Continued at Discharge Congestive Heart Failure Inclusion Criteria At DC or during hospital stay patient has or had the following: CHF DIAGNOSIS No Discharge Core Measures Meds if any: Prescribed or Continued at Discharge Meds if any: NOT Prescribed or Continued at Discharge Cerebrovascular accident Inclusion Criteria At DC or during hospital stay patient has or had the following: CVA/TIA Diagnosis No Discharge Core Measures Meds if any: Prescribed or Continued at Discharge Meds if any: NOT Prescribed or Continued at Discharge Venous thromboembolism Inclusion Criteria VTE Diagnosis No VTE Type NONE VTE Confirmed by (Test) NONE Discharge Core Measures - Per Current guidelines, there needs to be overlap - treatment for the first 5 days of Warfarin therapy. - If discharged on Warfarin prior to 5 days of - overlap therapy, the patient will need to be - assessed for post discharge needs including - *Post discharge parental anticoagulation - *Warfarin and/or parental anticoagulation education - *Follow up date to check INR post discharge At least 5 days overlap therapy as Inpatient No Meds if any: Prescribed or Continued at Discharge Note: Overlap Therapy is Warfarin and Anticoagulant Meds if any: NOT Prescribed or Continued at Discharge
[2017-06-07] MEDS ORDERED: PREDNISONE10 M2 PO ×2 (08:41→11:16)
[2017-06-07 09:09] VITALS: BP 132/84
[2017-06-07] MEDS ORDERED: AVELOX400 M1 PO ×2 (11:01→11:16)
[2017-06-07] MEDS ORDERED: LEVAQUIN500 M1 PO (13:01)
--- NOTE | 2017-06-12 21:16 | Discharge Summary ---
Visit Information Visit Dates Admission Date: 06/03/17 Discharge Date: 06/07/17 Hospital Course Course Attending Physician: Romelia Cobian MD Primary Care Physician: Dominguez Serrano MD Hospital Course: A: Patient is 67 year old female with PMH significant for paroxysmal atrial fibrillation on telemetry class, COPD on 2 L home oxygen, paraplegia as a result of spinal epidural abscess with chronic Li catheter for neurogenic bladder, hypertension, hyperlipidemia, CAD s/p PCI 2003 and 2005, aortic valve endocarditis who presented to ED with COPD exascerbation. Plan: #COPD The patient was treated with antibiotics, IV steroids, guaifensin, symbicort, and spiriva. He was seen by pulmonology. He was discharged with breathing treatments as stated above, a po steroid taper and levofloxacin x5 days. He was advised to f/u with his pulmnologist Dr. Bustillos and to continue bipap at night. He will need a pulm f/u for continuation of bipap. #hx of afib -continued apixaban #Hypertension -continued lasix, stotalol, metroprolol #Hyperlipidemia -continued atorvastatin #Neurogenic Li due to paraplegia -continued his li #chronic pain -cont pain medications, nortryptiline #constipation -continued colace #hx of paraplegia due to abscess -continued rifampin, doxycycline #hx of gerd -continued omerapazole Allergies: Coded Allergies: heparin (Intermediate, SWELLING, RASH 03/07/17) vancomycin (Intermediate, HIVES, SKIN CRACKES, TURNS RED, SWELLS AND PEELS 03/07) warfarin (From COUMADIN) (Intermediate, RASH 03/07/17) Disposition Summary Disposition Principal Diagnosis: COPD Additional Diagnosis: none Discharge Disposition: home health services Discharge Instructions General Discharge Information Code Status: Do Not Resucitate/Intubat Patient's Diet: Heart healthy Patient's Activity: As tolerated Follow-Up Instructions/Appts: Please follow up with your pcp in 1-2 weeks. Please follow up with your pulmnologist in 1-2 weeks. Medications at Discharge Discharge Medications: Continue taking these medications: Furosemide (Furosemide) 20 MG TABLET 3 Tablet ORAL EVERY 48 HOURS (Every 2 days) Qty = 90 Comments: Last Taken: 06/07/17 Time: 0900 AM Lactobacillus Acidophilus (Acidophilus) 1 EACH CAPSULE 1 Capsule ORAL TWICE DAILY Comments: NOT TAKEN IN HOSPITAL Magnesium Oxide (Magnesium) 400 MG CAPSULE 1 Capsule ORAL 0600 Comments: NOT TAKEN IN HOSPITAL Multivitamin (Daily Value) 1 EACH TABLET 1 Tablet ORAL DAILY Comments: NOT TAKEN IN HOSPITAL Ascorbate Calcium (Vitamin C) 500 MG TABLET 1 Tablet ORAL TWICE DAILY Comments: NOT GIVEN WHILE IN HOSPITAL Oxycodone HCl/Acetaminophen (Oxycodone-Acetaminophen 5-325) 5 MG-325 MG TABLET 1 Tablet ORAL Q4H as needed for PAIN Qty = 120 Comments: Last Taken: 06/07/17 Time: 1155 AM Baclofen (Baclofen) 20 MG TABLET 1 Tablet ORAL TWICE DAILY Qty = 150 Comments: NOT GIVEN WHILE IN HOSPITAL Bisacodyl (Dulcolax) 10 MG SUPP.RECT 1 Suppository RECTAL EVERY 48 HOURS (Every 2 days) Comments: Last Taken: 06/04/17 Time: 1400 Potassium Chloride (Potassium Chloride) 20 MEQ TAB.ER.PRT 1 Tablet ORAL DAILY Qty = 90 Comments: NOT GIVEN WHILE IN HOSPITAL Guaifenesin (Mucinex) 600 MG TAB.ER.12H 2 Tablet ORAL TWICE DAILY Comments: Last Taken: 06/07/17 Time: 0900 AM Doxycycline Hyclate (Doxycycline Hyclate) 100 MG CAPSULE 1 Capsule ORAL TWICE DAILY Qty = 60 Comments: NOT TAKEN IN HOSPITAL Sotalol (Betapace) 80 MG TABLET 80 Milligram ORAL TWICE DAILY Qty = 60 Comments: Last Taken: 06/07/17 Time: 0900 AM Apixaban (Eliquis) 5 MG TABLET 5 Milligram ORAL TWICE DAILY Qty = 60 Comments: Last Taken: 06/07/17 Time: 09:00 AM Albuterol Sulfate (Ventolin Hfa) 90 MCG HFA.AER.AD 2 Puff Inhale through mouth As Directed as needed for COPD Qty = 18 Comments: NOT GIVEN WHILE IN HOSPITAL Budesonide/Formoterol Fumarate (Symbicort 80-4.5 Mcg Inhaler) 80 MCG-4.5 MCG/ ACTUATION HFA.AER.AD 2 Puff Inhale through mouth TWICE DAILY Comments: Last Taken: 06/07/17 Time: 09:00 AM Gabapentin (Gabapentin) 600 MG TABLET 1 Tablet ORAL THREE TIMES DAILY Comments: NOT GIVEN WHILE IN HOSPITAL Rifampin (Rifadin) 300 MG CAPSULE 300 Milligram ORAL TWICE DAILY Qty = 60 Comments: TAKEN: 06/07/17 TIME: 0900 AM Acetaminophen (Tylenol Arthritis) 650 MG TABLET.ER 1 Tablet ORAL EVERY 6 HOURS NEEDED as needed for PAIN Comments: Last Taken: 06/07/17 Time: 0215 AM Lorazepam (Lorazepam) 1 MG TABLET 1 Tablet ORAL TWICE DAILY Comments: NOT TAKEN IN HOSPITAL Metoprolol Succ XL (Toprol XL) 25 MG TAB 1 Tablet ORAL DAILY Comments: Last Taken: 06/07/17 Time: 0900 AM Nortriptyline HCl (Nortriptyline HCl) 10 MG CAPSULE 1 Capsule ORAL DAILY Comments: Last Taken: 06/07/17 Time: 0900 AM Omeprazole (Omeprazole) 20 MG CAPSULE.DR 1 Capsule ORAL DAILY Comments: Last Taken: 06/07/17 Time: 0900 AM Evolocumab (Repatha Sureclick) 140 MG/ML PEN.INJCTR 1 Milliliters Inject into fatty tissue EVERY 2 WEEKS Comments: NOT TAKEN IN HOSPITAL Rosuvastatin Calcium (Crestor) 5 MG TABLET 1 Tablet ORAL DAILY Comments: Last Taken: 06/07/17 Time: 0900 AM SUBSTITUTED Montelukast Sodium (Singulair) 10 MG TABLET 1 Tablet ORAL DAILY Comments: NOT TAKEN IN HOSPITAL Tiotropium [place] (Spiriva) 18 MCG CAP.W.DEV 1 Capsule Inhale through mouth DAILY Comments: Last Taken: 06/07/17 Time: 0900 AM Atomoxetine HCl (Strattera) 40 MG CAPSULE 1 Capsule ORAL Every Morning Comments: NOT TAKEN IN HOSPITAL Trazodone HCl (Trazodone HCl) 50 MG TABLET 1 Tablet ORAL Every night Comments: NOT TAKEN IN HOSPITAL Docusate Sodium (Stool Softener) 100 MG CAPSULE 1 Capsule ORAL DAILY Comments: Last Taken: 06/07/17 Time: 0900 AM Start taking the following new medications: Prednisone (Prednisone) 10 MG TABLET 1 Tablet ORAL DAILY Qty = 31 No Refills Instructions: DATE TABS DAILY 06/08-06/09 5 06/10-06/11 4 06/12-06/13 3 06/14-06/15 2 06/16-06/17 1 06/18-06/19 0.5 Comments: Last Taken: 06/07/17 Time: 0900 AM Levofloxacin (Levaquin) 500 MG TABLET 1 Tablet ORAL DAILY Qty = 5 No Refills Copies To: Zach VOGEL,Dominguez Gray
== END 2017-06-07 15:10 | disposition home health service (06) | DRG 202 ==
LOC: ERH 11:39 → 2NA 14:48 → ERHI 14:48 → ENRESERV 16:08 → ENTRNSPT 17:41 → CMPTRNSPT 18:13 → 2NA 18:16 → ENPENDDIS 06-07 11:35 → 2NA 06-07 15:10
PROVIDERS: Emergency Medicine; Student in an Organized Health Care Education/Training Program
DX: J20.8 Acute bronchitis due to other specified organisms (principal); J44.1 Chronic obstructive pulmonary disease with (acute) exacerbation; J96.12 Chronic respiratory failure with hypercapnia; G82.20 Paraplegia, unspecified; I48.0 Paroxysmal atrial fibrillation; Z99.81 Dependence on supplemental oxygen; N31.9 Neuromuscular dysfunction of bladder, unspecified; R40.0 Somnolence; J44.0 Chronic obstructive pulmonary disease with (acute) lower respiratory infection; D72.829 Elevated white blood cell count, unspecified; G47.33 Obstructive sleep apnea (adult) (pediatric); Z79.01 Long term (current) use of anticoagulants; I10 Essential (primary) hypertension; E78.5 Hyperlipidemia, unspecified; I25.10 Atherosclerotic heart disease of native coronary artery without angina pectoris; Z98.61 Coronary angioplasty status; T83.031A Leakage of indwelling urethral catheter, initial encounter; K59.00 Constipation, unspecified; G89.29 Other chronic pain; Z66 Do not resuscitate
CPT/HCPCS: 2NAP; 36415; 71045; 80307; 81001; 82436; 87040; 87070; 87071; 87086; 87449; 87450; 87804; 87804-59; 93005; 93010; J0456; J0696; J2310; J2920; J2930; J3490; J7040

== ENCOUNTER 2017-06-13 17:36 | Observation (INO) | payer OTHER, MEDICARE ==
[~2017-06-13] VITALS: Ht 175.3 cm; Wt 101.2 kg
[~2017-06-13 17:36] MED LIST changes: +AVELOX400 M1 PO; +CRESTOR5 M1 PO; +LEVAQUIN500 M1 PO; +LORAZEPAM1 M1 PO; +STOOL SOFTENER100 M3 PO; +TOPROL XL25 M1 PO; +TYLENOL ARTHRI650 M1 PO
--- NOTE | 2017-06-13 17:42 | ED DYSPNEA/ASTHMA COMPLAINT ---
See Addendum History of Present Illness General Chief Complaint: Dyspnea (COPD, CHF, Other) Stated Complaint: BIBA FOR SOB Source: patient, old records, EMS Exam Limitations: no limitations Vital Signs & Intake/Output Vital Signs & Intake/Output Vital Signs Date Time Temp Pulse Resp B/P B/P Pulse O2 O2 Flow FiO2 Mean Ox Delivery Rate 06/13 2313 99.2 88 30 120/78 89 CPAP 06/13 2245 90 06/13 2156 98.3 87 24 134/80 94 Nasal 2.0L Cannula 06/13 1936 98.7 83 21 157/84 977 Nasal 2.0L Cannula 06/13 1752 Nasal Cannula 06/13 1739 96.8 83 20 137/67 98 Nasal 4.0L Cannula ED Intake and Output 06/14 0000 06/13 1200 Intake Total Output Total 500 Balance -500 Output, Urine 500 Patient 223 lb Weight Weight Reported by Patient Measurement Method Allergies Coded Allergies: heparin (Intermediate, SWELLING, RASH 03/07/17) vancomycin (Intermediate, HIVES, SKIN CRACKES, TURNS RED, SWELLS AND PEELS 03/07) warfarin (From COUMADIN) (Intermediate, RASH 03/07/17) Reconcile Medications Acetaminophen (Tylenol Arthritis) 650 MG TABLET.ER 1 TAB PO Q6-PRN PRN PAIN ( Reported) Albuterol Sulfate (Ventolin Hfa) 90 MCG HFA.AER.AD 2 PUF INH AD PRN COPD ( Reported) Apixaban (Eliquis) 5 MG TABLET 5 MG PO BID atrial fibrillation Ascorbate Calcium (Vitamin C) 500 MG TABLET 1 TAB PO BID SUPPLEMENT (Reported ) Atomoxetine HCl (Strattera) 40 MG CAPSULE 1 CAP PO QAM MENTAL HEALTH ( Reported) Baclofen 20 MG TABLET 1 TAB PO BID MUSCLE RELAXER (Reported) Bisacodyl (Dulcolax) 10 MG SUPP.RECT 1 SUP RC Q48 GI (Reported) Budesonide/Formoterol Fumarate (Symbicort 80-4.5 Mcg Inhaler) 80 MCG-4.5 MCG/ ACTUATION HFA.AER.AD 2 PUF INH BID COPD (Reported) Docusate Sodium (Stool Softener) 100 MG CAPSULE 1 CAP PO DAILY STOOL SOFTENER (Reported) Doxycycline Hyclate 100 MG CAPSULE 1 CAP PO BID infection (Reported) Evolocumab (Repatha Sureclick) 140 MG/ML PEN.INJCTR 1 ML SC Q 2 WEEKS CHOLESTEROL (Reported) Furosemide 20 MG TABLET 3 TAB PO Q48 DIURETIC (Reported) Gabapentin 600 MG TABLET 1 TAB PO TID NEUROPATHY (Reported) Guaifenesin (Mucinex) 600 MG TAB.ER.12H 2 TAB PO BID MUCUS (Reported) Lactobacillus Acidophilus (Acidophilus) 1 EACH CAPSULE 1 CAP PO BID PROBIOTIC (Reported) Levofloxacin (Levaquin) 500 MG TABLET 1 TAB PO DAILY LUNG INFECTION Lorazepam 1 MG TABLET 1 TAB PO BID ANXIETY (Reported) Magnesium Oxide (Magnesium) 400 MG CAPSULE 1 CAP PO 0600 SUPPLEMENT (Reported ) Metoprolol Succ XL (Toprol XL) 25 MG TAB 1 TAB PO DAILY HEART (Reported) Montelukast Sodium (Singulair) 10 MG TABLET 1 TAB PO DAILY ALLERGIES ( Reported) Multivitamin (Daily Value) 1 EACH TABLET 1 TAB PO DAILY VITAMIN SUPPORT ( Reported) Nortriptyline HCl 10 MG CAPSULE 1 CAP PO DAILY UNKNOWN (Reported) Omeprazole 20 MG CAPSULE.DR 1 CAP PO DAILY ACID REFLUX (Reported) Oxycodone HCl/Acetaminophen (Oxycodone-Acetaminophen 5-325) 5 MG-325 MG TABLET 1 TAB PO Q4H PRN PAIN (Reported) Potassium Chloride 20 MEQ TAB.ER.PRT 1 TAB PO DAILY SUPPLEMENT (Reported) Prednisone 10 MG TABLET 1 TAB PO DAILY COPD DATE TABS DAILY 06/08-06/09 5 06/10-06/11 4 06/12-06/13 3 06/14-06/15 2 06/16-06/17 1 06/18-06/19 0.5 Rifampin (Rifadin) 300 MG CAPSULE 300 MG PO BID MRSA (Reported) Rosuvastatin Calcium (Crestor) 5 MG TABLET 1 TAB PO DAILY CHOLESTEROL ( Reported) Sotalol (Betapace) 80 MG TABLET 80 MG PO BID AARYTHMIAS Tiotropium [place] (Spiriva) 18 MCG CAP.W.DEV 1 CAP INH DAILY BREATHING PROBLEMS (Reported) Trazodone HCl 50 MG TABLET 1 TAB PO QPM SLEEP (Reported) Triage Nurses Notes Reviewed? yes Onset: Abrupt Duration: day(s): (6), constant Timing: recent history Severity: moderate Activities at Onset: none Prior Episodes/Possible Cause: occasional episodes Associated Symptoms: cough HPI: 67 year old male with PMH significant for paroxysmal atrial fibrillation on elliquis, COPD on 2 L home oxygen, bipap at night, paraplegia as a result of spinal epidural abscess with chronic Orellana catheter for neurogenic bladder, hypertension, hyperlipidemia, CAD s/p PCI 2003 and 2005, aortic valve endocarditis presents to the ER for evaluation with his partner. Since being discharged 6 days ago his partner states that at nighttime his oxygen saturation is been checking has been dropping into the low 80s when he is on his BiPAP. He states he's had this before and he is retaining CO2 they take him off his BiPAP and he switched over to his nasal cannula and immediately rebounds [phone]% on his 2 L nasal cannula. The patient partner states that while he is asleep on the BiPAP he is singing and acting abnormally however upon being taken off the BiPAP he is back to his normal self. They state that a new mask is brought out earlier this week however the symptoms have persisted and they're concerned that the BiPAP machine is not working. On arrival patient denies any complaints he is currently on prednisone. No fever no chills he's had a nonproductive cough no chest pain abdominal pain (Jason Diggs) Past History Travel History Traveled to [place] past 21 day No Medical History Any Pertinent Medical History? 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 No (Jason Diggs) Review of Systems Review of Systems Constitutional: Reports: see HPI. Comments Review of systems: See HPI, All other systems negative. Constitutional, no chills no fever, no malaise HEENT: no sore throat no congestion Cardiovascular: No chest pain , no palpitation Skin: no rashes, no change in skin Respiratory: SEE HPI GI: No nausea no vomiting, no diarrhea : No dysuria No hematuria, no frequency Muscle skeletal: No joint pain, no back pain Neurologic: , no headache Psych: No stress Heme/endocrine: No bruising Immunology: No lymphadenopathy (Jason Diggs) Physical Exam Physical Exam General Appearance: well developed/nourished, no apparent distress, alert Respiratory: decreased breath sounds Comments: Well-developed well-nourished person in no acute distress HEENT: Normal EENT exam; PERRL, EOMI, HEAD is atraumatic. moist mucous membranes. Neck: Supple, normal range of motion Back: Full range of motion Cardiovascular: Regular rate and rhythms no murmurs rubs or gallops, normal JVP Respiratory:. No respiratory distress. Patient speaking in full complete sentences. diminished breath sounds b/l Abdomen: Soft, nontender nondistended, no appreciable organomegaly. Normal bowel sounds. No rebound/guarding, No appreciable enlargement of the abdominal aorta, No ascites. Extremity: No edema, full range of motion of upper extremities Neuro: Alert oriented x3, motor sensory normal, Skin: No appreciable rash on exposed skin, skin is warm and dry. Psych: Mood and affect is normal, memory and judgment is normal. Core Measures ACS in differential dx? Yes CVA/TIA Diagnosis No Sepsis Present: No Sepsis Focused Exam Completed? No (Jason Diggs) Progress Differential Diagnosis: asthma, AMI, bronchitis, costochondritis, CHF, COPD, pericarditis, pulmonary embolism, pneumonia, pneumothorax, unstable angina Plan of Care: Orders Procedure Date/time Status Heart Healthy Diet 06/14 B Active CONTIN. POSITIVE AIRWAY PRESS 06/13 193 Complete CASE MANAGEMENT CONSULT 06/[address] in observation 06/13 1911 Active ED Holding Orders 06/13 1911 Active Patient Data 06/13 1911 Active Vital Signs 06/13 1911 Active Code Status 06/13 1911 Active RAPID VIRAL INFLUENZA A 06/13 1751 Complete BLOOD CULTURE 06/13 175 Active TROPONIN LEVEL 06/13 175 Complete COMPREHENSIVE METABOLIC PANEL 06/13 175 Complete CBC WITHOUT DIFFERENTIAL 06/13 175 Complete Intake & Output 06/13 1747 Active EKG 06/13 1747 Active Current Medications Sig/Danni Start time Last Medication Dose Stop Time Status Admin Atorvastatin Calcium 20 MG 1700 06/14 1700 AC (Lipitor) Omeprazole 20 MG DAILY AC 06/14 0700 AC (Prilosec) Prednisone 40 MG ONCE ONE 06/14 0700 AC 06/14 07 Albuterol Sulfate 2 PUF Q4 06/13 2199 AC 06/13 (Ventolin) 2236 Apixaban 5 MG BID 06/13 2199 AC 06/13 (Eliquis) 2235 Baclofen 20 MG BID 06/13 2199 AC 06/13 (Lioresal 10MG 2235 Tablet) Budesonide/ 2 PUF BID 06/13 Formoterol Fumarate 2236 (SYMBICORT) Gabapentin 600 MG Q8 06/13 (Neurontin) 2236 Guaifenesin 600 MG Q12 06/13 (Mucinex) 2235 Nortriptyline HCl 10 MG AT BEDTIME 06/13 (Aventyl 10MG - 2235 Pamelor Cap) Sotalol HCl 80 MG BID 06/13 (Betapace) 2235 Trazodone HCl 50 MG AT BEDTIME 06/13 (Desyrel) 2235 Lorazepam 1 MG 0800,1700 PRN 06/13 2014 AC (Ativan) Oxycodone/ 1 TAB Q4P PRN 06/13 Acetaminophen 2110 (Percocet) Rifampin 300 MG DAILY 06/13 (Rifadin-Rimactane 2111 300MG Cap) Laboratory Tests 06/13/17 1805: Anion Gap 10, Estimated GFR > 60, BUN/Creatinine Ratio 25.0, Glucose 88, Calcium 9.5, Total Bilirubin 0.3, AST 41, ALT 82 H, Alkaline Phosphatase 86, Troponin I < 0.01, Total Protein 7.5, Albumin 3.7, Globulin 3.8, Albumin/Globulin Ratio 1.0 L, CBC w Diff NO MAN DIFF REQ, RBC 4.50 L, MCV 92.0, MCH 28.8, RDW 14.7 H, MPV 8.1, Gran % 74.9, Lymphocytes % 17.1 L, Monocytes % 6.4, Eosinophils % 1.4, Basophils % 0.2, Absolute Granulocytes 12.2 H, Absolute Lymphocytes 2.8, Absolute Monocytes 1.0 H, Absolute Eosinophils 0.2, Absolute Basophils 0, PUBS MCHC 31.3 L Microbiology 06/13 2004 BLOOD: Blood Culture - RECD 06/13 1937 NASOPHARYN: Influenza Virus A & B Rapid Smear - COMP 06/13 1804 BLOOD: Blood Culture - RECD labs ordered, old records reviewed, case d/w dr jeong. pt was med with solumedrol en route IV, duoneb en route. he is declining another tx at this time , speaking in full sentences 1899 I discussed with the patient at length all of his lab results and x-ray findings he is alert and oriented 3 on repeat auscultation lungs are decreased however no wheezing or rhonchi. He is declining a breathing treatment again when offered and discussed with him plan of care and need for observation overnight here in the emergency room for continuous pulse ox monitoring, case management consult in the a.m. to speak with the patient's medical supply [employer] regarding his BiPAP machine at home. 2100 pt resting in nad, denies dyspnea Diagnostic Imaging: Viewed by Me: Radiology Read. Discussed w/RAD: Radiology Read. Radiology Impression: PATIENT: ESTUARDO PEREZ PRESENT AGE: 67 PATIENT ACCOUNT NO: [id number] : 49 LOCATION: [facility] ORDERING PHYSICIAN: Jason PACKER SERVICE DATE: 06/13/17 EXAM TYPE: RAD - XRY- PORTABLE CHEST XRAY EXAMINATION: CHEST 1 VIEW CLINICAL INFORMATION: Dyspnea, cough. COMPARISON: 06/03/2017. TECHNIQUE: An AP view of the chest is provided. FINDINGS: The cardiac silhouette is not enlarged. The mediastinal and hilar contours are unremarkable. There are neither pleural effusions nor pneumothoraces. There is mild hazy opacification within both lung bases. The osseous structures are unremarkable. IMPRESSION: Mild nonspecific hazy opacification within both lung bases. Consider correlation with a lateral view, if possible. DICTATED BY: Parth Montez MD DATE/TIME DICTATED:06/13/171826 LEARNING AND DEVELOPMENT ASSISTANT:PAULO DATE/TIME TRANSCRIBED:06/13/171826 CONFIDENTIAL, DO NOT COPY WITHOUT APPROPRIATE AUTHORIZATION. <Electronically signed in Other Vendor System> SIGNED BY: Parth Montez MD 06/13/17 1836 Initial ED EKG: normal intervals, normal p-waves, normal QRS complex, normal sinus rhythm Prior EKG: unchanged Hand-Off Endorsed To: Diego Jeong MD Endorsed Time: 2300 Pending: other (CASE MANAGEMENT) (Jason Diggs) Departure Departure Disposition: STILL A PATIENT Condition: Stable Clinical Impression Primary Impression: COPD exacerbation Secondary Impressions: Difficulty with BiPAP use Referrals: Zach VOGEL,Dominguez Gray (PCP/Family) Departure Forms: Customer Survey General Discharge Information (Jason Diggs) PA/SENIOR QUALITY TECHNICIAN Co-Sign Statement Statement: ED Attending supervision documentation- [X] I saw and evaluated the patient. I have also reviewed all the pertinent lab results and diagnostic results. I agree with the findings and the plan of care as documented in the PA's/SENIOR QUALITY TECHNICIAN's documentation. [X] I have reviewed the ED Record and agree with the PA's/SENIOR QUALITY TECHNICIAN's documentation. [] Additions or exceptions (if any) to the PAs/SENIOR QUALITY TECHNICIAN's note and plan are summarized below: [] (Diego Jeong MD) Critical Care Note Critical Care Note Critical Care Time: non-applicable (Jason Diggs) ED Attending Observation Initial Observation Note: I have seen and personally examined ESTUARDO PEREZ on 06/13/17 at 1912. I agree with the current emergency department documentation. The disposition (admission or discharge) is uncertain at this time, he needs a period of observation for the following reason(s): [Patient to remain in the emergency department for observation for respiratory monitoring. Patient will be placed on our BiPAP machine and closely monitored. We will monitor his pulse ox remains normal then he will be evaluated in the morning for a new machine. If he desaturates he may require admission for pulmonary consultation.] The ED Nurse caring for this patient has been personally informed as to what the patient is being observed for. (Diego Jeong MD)
--- NOTE | 2017-06-13 18:32 | RADIOLOGY REPORT ---
EXAMINATION: CHEST 1 VIEW CLINICAL INFORMATION: Dyspnea, cough. COMPARISON: 06/03/2017. TECHNIQUE: An AP view of the chest is provided. FINDINGS: The cardiac silhouette is not enlarged. The mediastinal and hilar contours are unremarkable. There are neither pleural effusions nor pneumothoraces. There is mild hazy opacification within both lung bases. The osseous structures are unremarkable. IMPRESSION: Mild nonspecific hazy opacification within both lung bases. Consider correlation with a lateral view, if possible.
[2017-06-13 18:35] LABS: ABSOLUTE BASOPHIL COUNT 0 /CUMM (0.0-0.2); ABSOLUTE EOSINOPHIL COUNT 0.2 /CUMM (0.0-0.7); ABSOLUTE GRANULOCYTE CT 12.2 /CUMM (1.4-6.5); ABSOLUTE LYMPH COUNT 2.8 /CUMM (1.2-3.4); BASOPHIL % 0.2 % (0.0-2.0); EOSINOPHIL % 1.4 % (0-5); GRANULOCYTE % 74.9 % (42.2-75.2); HEMATOCRIT 41.4 % (42-52); MEAN CORPUSCULAR HGB 28.8 PG (27.0-31.0); MEAN CORPUSCULAR HGB CONC 31.3 G/DL (33.0-37.0); MEAN PLATELET VOLUME 8.1 FL (7.4-10.4); PLATELET COUNT 359 /CUMM (130-400); RBC DISTRIBUTION WIDTH 14.7 % (11.5-14.5); WHITE BLOOD CELL COUNT 16.3 /CUMM (4.8-10.8)
--- NOTE | 2017-06-14 10:14 | Cons- Pulmonary ---
General Information and HPI Consulting Request Date of Consult: 06/14/17 Requested By: Dr. Jeong Reason for Consult: Low oxygen levels, question of faulty BIPAP. Source of Information: patient, old records Exam Limitations: no limitations Allergies/Medications Allergies: Coded Allergies: heparin (Intermediate, SWELLING, RASH 03/07/17) vancomycin (Intermediate, HIVES, SKIN CRACKES, TURNS RED, SWELLS AND PEELS 03/07) warfarin (From COUMADIN) (Intermediate, RASH 03/07/17) Home Med List: Acetaminophen (Tylenol Arthritis) 650 MG TABLET.ER 1 TAB PO Q6-PRN PRN PAIN ( Reported) Albuterol Sulfate (Ventolin Hfa) 90 MCG HFA.AER.AD 2 PUF INH AD PRN COPD ( Reported) Apixaban (Eliquis) 5 MG TABLET 5 MG PO BID atrial fibrillation Ascorbate Calcium (Vitamin C) 500 MG TABLET 1 TAB PO BID SUPPLEMENT (Reported ) Atomoxetine HCl (Strattera) 40 MG CAPSULE 1 CAP PO QAM MENTAL HEALTH ( Reported) Baclofen 20 MG TABLET 1 TAB PO BID MUSCLE RELAXER (Reported) Bisacodyl (Dulcolax) 10 MG SUPP.RECT 1 SUP RC Q48 GI (Reported) Budesonide/Formoterol Fumarate (Symbicort 80-4.5 Mcg Inhaler) 80 MCG-4.5 MCG/ ACTUATION HFA.AER.AD 2 PUF INH BID COPD (Reported) Docusate Sodium (Stool Softener) 100 MG CAPSULE 1 CAP PO DAILY STOOL SOFTENER (Reported) Doxycycline Hyclate 100 MG CAPSULE 1 CAP PO BID infection (Reported) Evolocumab (Repjacqueline Fitzgerald) 140 MG/ML PEN.INJCTR 1 ML SC Q 2 WEEKS CHOLESTEROL (Reported) Furosemide 20 MG TABLET 3 TAB PO Q48 DIURETIC (Reported) Gabapentin 600 MG TABLET 1 TAB PO TID NEUROPATHY (Reported) Guaifenesin (Mucinex) 600 MG TAB.ER.12H 2 TAB PO BID MUCUS (Reported) Lactobacillus Acidophilus (Acidophilus) 1 EACH CAPSULE 1 CAP PO BID PROBIOTIC (Reported) Levofloxacin (Levaquin) 500 MG TABLET 1 TAB PO DAILY LUNG INFECTION Lorazepam 1 MG TABLET 1 TAB PO BID ANXIETY (Reported) Magnesium Oxide (Magnesium) 400 MG CAPSULE 1 CAP PO 0600 SUPPLEMENT (Reported ) Metoprolol Succ XL (Toprol XL) 25 MG TAB 1 TAB PO DAILY HEART (Reported) Montelukast Sodium (Singulair) 10 MG TABLET 1 TAB PO DAILY ALLERGIES ( Reported) Multivitamin (Daily Value) 1 EACH TABLET 1 TAB PO DAILY VITAMIN SUPPORT ( Reported) Nortriptyline HCl 10 MG CAPSULE 1 CAP PO DAILY UNKNOWN (Reported) Omeprazole 20 MG CAPSULE.DR 1 CAP PO DAILY ACID REFLUX (Reported) Oxycodone HCl/Acetaminophen (Oxycodone-Acetaminophen 5-325) 5 MG-325 MG TABLET 1 TAB PO Q4H PRN PAIN (Reported) Potassium Chloride 20 MEQ TAB.ER.PRT 1 TAB PO DAILY SUPPLEMENT (Reported) Prednisone 10 MG TABLET 1 TAB PO DAILY COPD DATE TABS DAILY 06/08-06/09 5 06/10-06/11 4 06/12-06/13 3 06/14-06/15 2 06/16-06/17 1 06/18-06/19 0.5 Rifampin (Rifadin) 300 MG CAPSULE 300 MG PO BID MRSA (Reported) Rosuvastatin Calcium (Crestor) 5 MG TABLET 1 TAB PO DAILY CHOLESTEROL ( Reported) Sotalol (Betapace) 80 MG TABLET 80 MG PO BID AARYTHMIAS Tiotropium [place] (Spiriva) 18 MCG CAP.W.DEV 1 CAP INH DAILY BREATHING PROBLEMS (Reported) Trazodone HCl 50 MG TABLET 1 TAB PO QPM SLEEP (Reported) Current Medications: Current Medications Sig/Danni Start time Last Medication Dose Route Stop Time Status Admin Albuterol Sulfate 2 PUF Q4 06/13 2199 AC 06/14 INH 0735 Apixaban 5 MG BID 06/13 2199 AC 06/14 PO 0922 Atorvastatin Calcium 20 MG 1700 06/14 1700 AC PO Baclofen 20 MG BID 06/13 2199 AC 06/14 PO 0922 Budesonide/ 2 PUF BID 06/13 2199 AC 06/13 Formoterol Fumarate INH 2237 Gabapentin 0 .STK-MED ONE 06/14 0730 DC PO Gabapentin 600 MG Q8 06/13 2199 AC 06/14 PO 0735 Guaifenesin 600 MG Q12 06/13 2199 AC 06/14 PO 0922 Lorazepam 1 MG 0800,1700 PRN 06/13 2014 AC PO Nortriptyline HCl 10 MG AT BEDTIME 06/13 2199 AC 06/13 PO 2236 Omeprazole 0 .STK-MED ONE 06/14 0731 DC PO Omeprazole 0 .STK-MED ONE 06/14 0730 DC PO Omeprazole 20 MG DAILY AC 06/14 07 AC 06/14 PO 0735 Oxycodone/ 0 .STK-MED ONE 06/14 0809 DC Acetaminophen PO Oxycodone/ 0 .STK-MED ONE 06/13 2111 DC Acetaminophen PO Oxycodone/ 1 TAB Q4P PRN 06/13 2014 AC 06/14 Acetaminophen PO 0807 Prednisone 0 .STK-MED ONE 06/14 0630 DC PO Prednisone 40 MG ONCE ONE 06/14 07 DC 06/14 PO 06/14 0701 0735 Rifampin 300 MG DAILY 06/13 2007 AC 06/14 PO 0922 Sotalol HCl 80 MG BID 06/13 2199 AC 06/14 PO 0922 Trazodone HCl 50 MG AT BEDTIME 06/13 2199 AC 06/13 PO 2236 Review of Systems Review of Systems All Other Systems: Reviewed and Negative Past History Travel History Traveled to [place] past 21 day No Medical History Neurological: 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 Ambulation: wheelchair IADLs Independent: shopping, housework, finances, food prep, telephone, transportation , medication admin. Exam & Diagnostic Data Last 24 Hrs of Vital Signs/I&O Vital Signs Date Time Temp Pulse Resp B/P B/P Pulse O2 O2 Flow FiO2 Mean Ox Delivery Rate 06/14 920 98.2 86 18 163/92 96 Nasal 2.0L Cannula 06/14 0653 95.7 91 20 153/81 97 Nasal 2.0L Cannula 06/14 0500 8 20 128/85 94 BIPAP 06/14 0251 98.9 83 20 132/72 92 BIPAP 06/14 0144 81 92 06/13 2313 99.2 88 30 120/78 89 CPAP 06/13 2245 90 06/13 2156 98.3 87 24 134/80 94 Nasal 2.0L Cannula 06/13 1936 98.7 83 21 157/84 977 Nasal 2.0L Cannula 06/13 1752 Nasal Cannula 06/13 1739 96.8 83 20 137/67 98 Nasal 4.0L Cannula Intake & Output 06/14 1600 06/14 0800 06/14 0000 Intake Total Output Total 500 Balance -500 Output, Urine 500 Patient 223 lb Weight Weight Reported by Patient Measurement Method Assessment/Plan Consult Acknowledgment - Thank you for your consult request.
[2017-06-14 13:58] VITALS: BP 136/84
== END 2017-06-14 14:27 ==
LOC: ERH 17:36 → ERHI 19:12 → ENRESERV 19:50 → ERHI 06-14 14:26
PROVIDERS: Physician Assistant Medical
DX: J44.1 Chronic obstructive pulmonary disease with (acute) exacerbation (principal); I48.0 Paroxysmal atrial fibrillation; Z79.01 Long term (current) use of anticoagulants; I10 Essential (primary) hypertension; E78.5 Hyperlipidemia, unspecified; I25.10 Atherosclerotic heart disease of native coronary artery without angina pectoris; I21.9 Acute myocardial infarction, unspecified; Z99.81 Dependence on supplemental oxygen; N31.9 Neuromuscular dysfunction of bladder, unspecified; Z87.891 Personal history of nicotine dependence; G82.20 Paraplegia, unspecified; G89.29 Other chronic pain
CPT/HCPCS: 1263; 1288; 1328; 1748; 6090; 71045; 87040; 87804; 87804-59; 93005; 93010; G0378; J3490

== ENCOUNTER 2017-06-21 13:24 | Observation (INO) | payer OTHER, MEDICARE ==
[~2017-06-21] VITALS: Ht 175.3 cm; Wt 105.7 kg
[2017-06-21 13:51] LABS: ABSOLUTE BASOPHIL COUNT 0 /CUMM (0.0-0.2); ABSOLUTE EOSINOPHIL COUNT 0.4 /CUMM (0.0-0.7); ABSOLUTE GRANULOCYTE CT 11.6 /CUMM (1.4-6.5); ABSOLUTE LYMPH COUNT 2.7 /CUMM (1.2-3.4); ABSOLUTE MONOCYTE COUNT 0.9 /CUMM (0.10-0.60); BASOPHIL % 0.1 % (0.0-2.0); EOSINOPHIL % 2.5 % (0-5); GRANULOCYTE % 74.4 % (42.2-75.2); HEMATOCRIT 39.1 % (42-52); MEAN CORPUSCULAR HGB 29.1 PG (27.0-31.0); MEAN CORPUSCULAR HGB CONC 31.6 G/DL (33.0-37.0); MEAN PLATELET VOLUME 7.9 FL (7.4-10.4); PLATELET COUNT 289 /CUMM (130-400); RBC DISTRIBUTION WIDTH 15.6 % (11.5-14.5); RED BLOOD CELL CT 4.25 /CUMM (4.70-6.10); WHITE BLOOD CELL COUNT 15.6 /CUMM (4.8-10.8)
--- NOTE | 2017-06-21 13:51 | ED DYSPNEA/ASTHMA COMPLAINT ---
History of Present Illness General Chief Complaint: Dyspnea (COPD, CHF, Other) Stated Complaint: BIBA SOB Source: patient, old records, EMS Exam Limitations: clinical condition Vital Signs & Intake/Output Vital Signs & Intake/Output Vital Signs Date Time Temp Pulse Resp B/P B/P Pulse O2 O2 Flow FiO2 Mean Ox Delivery Rate 06/21 1341 86 95 06/21 1338 97 BIPAP 40% 06/21 1337 96.8 81 24 128/77 97 BIPAP 40% Allergies Coded Allergies: heparin (Intermediate, SWELLING, RASH 03/07/17) vancomycin (Intermediate, HIVES, SKIN CRACKES, TURNS RED, SWELLS AND PEELS 03/07) warfarin (From COUMADIN) (Intermediate, RASH 03/07/17) Reconcile Medications Acetaminophen (Tylenol Arthritis) 650 MG TABLET.ER 1 TAB PO Q6-PRN PRN PAIN ( Reported) Albuterol Sulfate (Ventolin Hfa) 90 MCG HFA.AER.AD 2 PUF INH AD PRN COPD ( Reported) Apixaban (Eliquis) 5 MG TABLET 5 MG PO BID atrial fibrillation Ascorbate Calcium (Vitamin C) 500 MG TABLET 1 TAB PO BID SUPPLEMENT (Reported ) Atomoxetine HCl (Strattera) 40 MG CAPSULE 1 CAP PO QAM MENTAL HEALTH ( Reported) Baclofen 20 MG TABLET 1 TAB PO BID MUSCLE RELAXER (Reported) Bisacodyl (Dulcolax) 10 MG SUPP.RECT 1 SUP RC Q48 GI (Reported) Budesonide/Formoterol Fumarate (Symbicort 80-4.5 Mcg Inhaler) 80 MCG-4.5 MCG/ ACTUATION HFA.AER.AD 2 PUF INH BID COPD (Reported) Docusate Sodium (Stool Softener) 100 MG CAPSULE 1 CAP PO DAILY STOOL SOFTENER (Reported) Doxycycline Hyclate 100 MG CAPSULE 1 CAP PO BID infection (Reported) Evolocumab (Repatha Sureclick) 140 MG/ML PEN.INJCTR 1 ML SC Q 2 WEEKS CHOLESTEROL (Reported) Furosemide 20 MG TABLET 3 TAB PO Q48 DIURETIC (Reported) Gabapentin 600 MG TABLET 1 TAB PO TID NEUROPATHY (Reported) Guaifenesin (Mucinex) 600 MG TAB.ER.12H 1 TAB PO BID CONGESTION (Reported) Lactobacillus Acidophilus (Acidophilus) 1 EACH CAPSULE 1 CAP PO BID PROBIOTIC (Reported) Lorazepam 1 MG TABLET 1 TAB PO BID ANXIETY (Reported) Magnesium Oxide (Magnesium) 400 MG CAPSULE 1 CAP PO 0600 SUPPLEMENT (Reported ) Metoprolol Succ XL (Toprol XL) 25 MG TAB 1 TAB PO DAILY HEART (Reported) Montelukast Sodium (Singulair) 10 MG TABLET 1 TAB PO DAILY ALLERGIES ( Reported) Multivitamin (Daily Value) 1 EACH TABLET 1 TAB PO DAILY VITAMIN SUPPORT ( Reported) Nortriptyline HCl 10 MG CAPSULE 1 CAP PO DAILY UNKNOWN (Reported) Omeprazole 20 MG CAPSULE.DR 1 CAP PO DAILY ACID REFLUX (Reported) Oxycodone HCl/Acetaminophen (Oxycodone-Acetaminophen 5-325) 5 MG-325 MG TABLET 1 TAB PO Q4H PRN PAIN (Reported) Potassium Chloride 20 MEQ TAB.ER.PRT 1 TAB PO DAILY SUPPLEMENT (Reported) Rifampin (Rifadin) 300 MG CAPSULE 300 MG PO BID MRSA (Reported) Rosuvastatin Calcium (Crestor) 5 MG TABLET 1 TAB PO DAILY CHOLESTEROL ( Reported) Sotalol (Betapace) 80 MG TABLET 80 MG PO BID AARYTHMIAS Tiotropium [place] (Spiriva) 18 MCG CAP.W.DEV 1 CAP INH DAILY BREATHING PROBLEMS (Reported) Trazodone HCl 50 MG TABLET 1 TAB PO QPM SLEEP (Reported) Core Measure Meds Pre-Hospital Eliquis Triage Note: 67 Y/O MALE BIBA FROM HOME FOR EVAL OF SOB SINCE YESTERDAY; RECENTLY EVAL'D IN ED FOR SAME AND WAS D/ANNELISE WITH COMPANY COMING OUT TO REPAIR HOME BIPAP. PT STATES BIPAP HAS BEEN FIXED BUT HE DID NOT WEAR IT LAST EVENING. 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 ALSO BEGAN CPAP. PT ARRIVES A/O X 4, SPEAKING CLEARLY ON CPAP - THEN SWITCHED TO BIPAP BY RT. PT REPORTS NON PRODUCTIVE COUGH. CURRENTLY ON TAMIFLU BUT HAD NEGATIVE FLU SWAB PER PT. HX PARALYSIS FROM WAIST DOWN, BEAVERS IN PLACE DRAINING YELLOW URINE. PLACED ON MONITOR, RATE 70'S. DENIES CHEST PAIN. AFEBRILE. MD INTO EVAL Triage Nurses Notes Reviewed? yes Onset: Evening Duration: hour(s):, constant, getting worse Timing: recent history Severity: severe Activities at Onset: none Prior Episodes/Possible Cause: chronic episodes, illness exposure Modifying Factors: Improves With: rest. Worsens With: movement. Associated Symptoms: wheezing, weakness HPI: The evening prior to admission patient decided not to use his BiPAP. Prior to admission patient was found to be acutely short of breath with increased work of breathing given nebs CPAP magnesium and Solu-Medrol. He denies fever chills nausea vomiting diarrhea abdominal pain chest pain dysuria rash bleeding headache. Past History Travel History Traveled to [place] past 21 day No Medical History Any Pertinent Medical History? 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 No Review of Systems Review of Systems Constitutional: Reports: see HPI, weakness. EENTM: Reports: no symptoms. Respiratory: Reports: see HPI, cough, short of breath, wheezing. Cardiovascular: Reports: no symptoms. GI: Reports: no symptoms. Genitourinary: Reports: no symptoms. Musculoskeletal: Reports: no symptoms. Skin: Reports: no symptoms. Neurological/Psychological: Reports: no symptoms. Hematologic/Endocrine: Reports: no symptoms. Immunologic/Allergic: Reports: no symptoms. All Other Systems: Reviewed and Negative Physical Exam Physical Exam General Appearance: well developed/nourished, alert, awake, severe distress, obese Head: atraumatic, normal appearance Eyes: Bilateral: normal appearance, PERRL, EOMI. Ears, Nose, Throat: normal pharynx, normal ENT inspection Neck: normal inspection, supple, full range of motion, no midline tenderness Respiratory: chest non-tender, decreased breath sounds, wheezing, respiratory distress Cardiovascular: normal peripheral pulses, irregularly irregular, norml femoral pulses equa Peripheral Pulses: 4+ carotid (R), 4+ carotid (L) Gastrointestinal: normal bowel sounds, soft, non-tender, no organomegaly Extremities: normal inspection, normal capillary refill, normal range of motion, no edema, no ligament instability Neurologic/Psych: awake, alert, oriented x 3, ball sorter II-XII nml as tested Skin: intact, normal color, warm/dry Lymphatic: no anterior cervical martine Core Measures ACS in differential dx? No CVA/TIA Diagnosis No Sepsis Present: No Sepsis Focused Exam Completed? No Progress Differential Diagnosis: asthma, bronchitis, CHF, COPD, pneumonia Plan of Care: Orders Procedure Date/time Status Regular Diet 06/22 D Active RAPID VIRAL INFLUENZA A 06/21 1514 Active OXYGEN SETUP (GEN) 06/21 1446 Active Saline Lock 06/[address] in observation 06/21 1446 Active Vital Signs 06/21 1446 Active Activity/Ambulation 06/21 1446 Active Code Status 06/21 1446 Active EKG 06/21 1347 Active ARTERIAL BLOOD GAS (GEN) 06/21 1337 Complete BLOOD CULTURE 06/21 1337 Active TROPONIN LEVEL 06/21 1337 Complete MAGNESIUM 06/21 1337 Complete COMPREHENSIVE METABOLIC PANEL 06/21 1337 Complete CBC WITHOUT DIFFERENTIAL 06/21 1337 Complete B-TYPE NATRIURETIC PEP (BNP) 06/21 1337 Complete BIPAP 06/21 UNK Complete Current Medications Sig/Danni Start time Last Medication Dose Stop Time Status Admin Azithromycin 500 MG ONCE ONE 06/21 1500 AC (Zithromax) 06/21 1559 Sodium Chloride 250 ML (Normal Saline 0.9%) Laboratory Tests 06/21/17 1430: pH 7.31 L, pCO2 75 *H, pO2 83, HCO3 38 H, ABG O2 Sat (Measured) 95.0 L, P-50 (Temp Corrected) Y, Carboxyhemoglobin 1.2 L, O2 Concentration % 40%, Temperature 96.8 L, Respiration Rate 24, O2 Delivery Method BIPAP, Vent Mode ST , Expiratory Pressure 6, Inspiratory Pressure 24, Phlebotomy Draw Site RIGHT RADIAL 06/21/17 1338: Anion Gap 9, Estimated GFR > 60, BUN/Creatinine Ratio 45.0 H, Glucose 109 H, Calcium 9.5, Magnesium 4.1 H, Total Bilirubin 0.5, AST 28, ALT 48, Alkaline Phosphatase 82, Troponin I < 0.01, Xrh-W-Isbuvqmtxrb Pept 466 H, Total Protein 6.4, Albumin 3.2 L, Globulin 3.2, Albumin/Globulin Ratio 1.0 L, CBC w Diff NO MAN DIFF REQ, RBC 4.25 L, MCV 92.0, MCH 29.1, MCHC 31.6 L, RDW 15.6 H, MPV 7.9, Gran % 74.4, Lymphocytes % 17.2 L, Monocytes % 5.8, Eosinophils % 2.5, Basophils % 0.1, Absolute Granulocytes 11.6 H, Absolute Lymphocytes 2.7, Absolute Monocytes 0.9 H, Absolute Eosinophils 0.4, Absolute Basophils 0 Microbiology 06/21 1514 NASOPHARYN: Influenza Virus A & B Rapid Smear - ORD 06/21 1510 BLOOD: Blood Culture - RECD 06/21 1337 BLOOD: Blood Culture - ORD Diagnostic Imaging: Viewed by Me: Radiology Read. Discussed w/RAD: Radiology Read. CXR Impression: 1. The study redemonstrates opacities at the lower zones bilaterally. 2. The cardiac silhouette is normal in size. Initial ED EKG: normal axis, normal intervals, normal p-waves, normal QRS complex, normal sinus rhythm, no ST T wave changes Prior EKG: unchanged Rhythm Strip: normal sinus rhythm Departure Departure Disposition: STILL A PATIENT Condition: Stable Clinical Impression Primary Impression: Respiratory failure with hypercapnia Secondary Impressions: COPD with exacerbation, Pneumonia Referrals: Zach VOGEL,Dominguez Gray (PCP/Family) Departure Forms: Customer Survey General Discharge Information Observation Note Spoke With: Ananya VOGEL,Lissa Physician Advisor Notified: RUTHIE VOGEL,LEONARDO Galvez Place Patient In: Non-ED OBS Care Area Rationale for Observation: My rational for observation is as follows BiPAP serial lab exam serial beta agonist nebs medication adjustment IV steroids IV antibiotics physical therapy pulmonary evaluation continuing care discharge planning. Critical Care Note Critical Care Note Critical Care Time: 30-74 min (35)
[2017-06-21] MEDS ORDERED: MUCINEX600 M1 PO (14:39)
--- NOTE | 2017-06-21 14:42 | RADIOLOGY REPORT ---
EXAMINATION: XR PORTABLE CHEST CLINICAL INFORMATION: Shortness of breath, rhonchi and hypoxia. Assess for CHF. COMPARISON: Chest x-rays 06/03/2017 and 06/13/2017. TECHNIQUE: Portable frontal 75 degrees semiupright view of the chest was obtained. FINDINGS: The lung sparks are hypoexpanded, similar compared to prior imaging. There are opacities in the lower zones bilaterally, most consistent with atelectasis, also demonstrated on the prior study. The cardiac silhouette is normal in size. The aortic arch is unfolded. There are no pleural effusions. There is mild prominence of the pulmonary arteries, which may be consistent with pulmonary hypertension, unchanged. There are no acute osseous findings. IMPRESSION: 1. The study redemonstrates opacities at the lower zones bilaterally. 2. The cardiac silhouette is normal in size.
--- NOTE | 2017-06-21 15:20 | History & Physical ---
Sary Dorado 06/21/17 1519: General Information and HPI MD Statement: I have seen and personally examined ESTUARDO PARK and documented this H&P. The patient is a 67 year old M who presented with a patient stated chief complaint of [Shortness of Breath]. Source of Information: patient, family, old records Exam Limitations: clinical condition History of Present Illness: Mr. 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 Patient had problem with his BiPAP from last discharge and the company came and repaired it. However, patient admitted that he was not using the BiPAP last evening. Patient also reported non-productive cough and was on Tamiflu however he had negative flu swab per patient. Patient was then found be SOB this AM and paramedics was called. Patient received 2x Duo Nebs, 1 Albuterol, and 125mg Solumedrol, and 2g Mg during transportation and felt improved. He was then put on BiPAP in ER. During our clinical interaction, patient was on BiPAP with no appparent stress and responded clearly to our words. Patient's family member was also in the room to aid on history taking. Of note, patient also had a history of paralegia from spinal abscess before and had a li in place. Patient denied fever/night sweat/weight change/mood change/insomnia, dietary/ appetite change. Patient denied Chest Pain/Palpitation/Abdominal pain, bowel movement/urinary abnormality, or other skin/musculoskeletal/neurological disorders. Allergies/Medications Allergies: Coded Allergies: heparin (Intermediate, SWELLING, RASH 03/07/17) vancomycin (Intermediate, HIVES, SKIN CRACKES, TURNS RED, SWELLS AND PEELS 03/07) warfarin (From COUMADIN) (Intermediate, RASH 03/07/17) Home Med list Acetaminophen (Tylenol Arthritis) 650 MG TABLET.ER 1 TAB PO Q6-PRN PRN PAIN ( Reported) Albuterol Sulfate (Ventolin Hfa) 90 MCG HFA.AER.AD 2 PUF INH AD PRN COPD ( Reported) Apixaban (Eliquis) 5 MG TABLET 5 MG PO BID atrial fibrillation Ascorbate Calcium (Vitamin C) 500 MG TABLET 1 TAB PO BID SUPPLEMENT (Reported ) Atomoxetine HCl (Strattera) 40 MG CAPSULE 1 CAP PO QAM MENTAL HEALTH ( Reported) Baclofen 20 MG TABLET 1 TAB PO BID MUSCLE RELAXER (Reported) Bisacodyl (Dulcolax) 10 MG SUPP.RECT 1 SUP RC Q48 GI (Reported) Budesonide/Formoterol Fumarate (Symbicort 80-4.5 Mcg Inhaler) 80 MCG-4.5 MCG/ ACTUATION HFA.AER.AD 2 PUF INH BID COPD (Reported) Docusate Sodium (Stool Softener) 100 MG CAPSULE 1 CAP PO DAILY STOOL SOFTENER (Reported) Doxycycline Hyclate 100 MG CAPSULE 1 CAP PO BID infection (Reported) Evolocumab (Repatha Sureclick) 140 MG/ML PEN.INJCTR 1 ML SC Q 2 WEEKS CHOLESTEROL (Reported) Furosemide 20 MG TABLET 3 TAB PO Q48 DIURETIC (Reported) Gabapentin 600 MG TABLET 1 TAB PO TID NEUROPATHY (Reported) Guaifenesin (Mucinex) 600 MG TAB.ER.12H 1 TAB PO BID CONGESTION (Reported) Lactobacillus Acidophilus (Acidophilus) 1 EACH CAPSULE 1 CAP PO BID PROBIOTIC (Reported) Lorazepam 1 MG TABLET 1 TAB PO BID ANXIETY (Reported) Magnesium Oxide (Magnesium) 400 MG CAPSULE 1 CAP PO 0600 SUPPLEMENT (Reported ) Metoprolol Succ XL (Toprol XL) 25 MG TAB 1 TAB PO DAILY HEART (Reported) Montelukast Sodium (Singulair) 10 MG TABLET 1 TAB PO DAILY ALLERGIES ( Reported) Multivitamin (Daily Value) 1 EACH TABLET 1 TAB PO DAILY VITAMIN SUPPORT ( Reported) Nortriptyline HCl 10 MG CAPSULE 1 CAP PO DAILY UNKNOWN (Reported) Omeprazole 20 MG CAPSULE.DR 1 CAP PO DAILY ACID REFLUX (Reported) Oxycodone HCl/Acetaminophen (Oxycodone-Acetaminophen 5-325) 5 MG-325 MG TABLET 1 TAB PO Q4H PRN PAIN (Reported) Potassium Chloride 20 MEQ TAB.ER.PRT 1 TAB PO DAILY SUPPLEMENT (Reported) Rifampin (Rifadin) 300 MG CAPSULE 300 MG PO BID MRSA (Reported) Rosuvastatin Calcium (Crestor) 5 MG TABLET 1 TAB PO DAILY CHOLESTEROL ( Reported) Sotalol (Betapace) 80 MG TABLET 80 MG PO BID AARYTHMIAS Tiotropium [place] (Spiriva) 18 MCG CAP.W.DEV 1 CAP INH DAILY BREATHING PROBLEMS (Reported) Trazodone HCl 50 MG TABLET 1 TAB PO QPM SLEEP (Reported) Past History Travel History Traveled to [place] past 21 day No Medical History Neurological: C6-7 ABSCESS PARAPLEGIA EENT: NONE Cardiovascular: AFIB, hypertension, hyperlipidemia, myocardial infarction Respiratory: asthma, COPD, OXYGEN DEPEND 2L Gastrointestinal: NONE Hepatic: NONE Renal: neurogenic bladder Musculoskeletal: PARAPLEGIA R/T ABSCESS Psychiatric: NONE Endocrine: NONE Blood Disorders: NONE Cancer(s): NONE CORE MICROARCHITECT/Reproductive: NONE History of MRSA: Yes History of VRE: No History of CDIFF: No Surgical History Surgical History: non-contributory Past Family/Social History Family History Relations & Conditions if any Relation not specified for: *No pertinent family history Psychosocial History Who Do You Live With? 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 Ambulation: wheelchair IADLs Independent: shopping, housework, finances, food prep, telephone, transportation , medication admin. Review of Systems Review of Systems Constitutional: Reports: see HPI. Exam & Diagnostic Data Last 24 Hrs of Vital Signs/I&O Vital Signs Date Time Temp Pulse Resp B/P B/P Pulse O2 O2 Flow FiO2 Mean Ox Delivery Rate 06/21 1647 76 06/21 1602 95 BIPAP 06/21 1526 71 24 132/73 100 BIPAP 40% 06/21 1341 86 95 06/21 1338 97 BIPAP 40% 06/21 1337 96.8 81 24 128/77 97 BIPAP 40% Intake & Output 06/21 1600 06/21 0800 06/21 0000 Intake Total Output Total Balance Patient 105.687 kg Weight Weight Reported by Patient Measurement Method Physical Exam General Appearance Alert, Oriented X3, Cooperative, No Acute Distress, On BiPAP Skin No Breakdown, No Significant Lesion Skin Temp/Moisture Exam: Cool/Dry Sepsis Skin Exam (color): Normal for Ethnicity HEENT Atraumatic, PERRLA, EOMI Neck Supple, No JVD Cardiovascular Regular Rate, Normal S1, Normal S2 Lungs Normal Air Movement, Bilateral Wheeze Abdomen Normal Bowel Sounds, Soft, No Tenderness Neurological Normal Speech, Strength at 5/5 X4 Ext Extremities No Cyanosis, No Edema, Normal Pulses Last 24 Hrs of Labs/Bryan: Laboratory Tests 06/21/17 1430: pH 7.31 L, pCO2 75 *H, pO2 83, HCO3 38 H, ABG O2 Sat (Measured) 95.0 L, P-50 (Temp Corrected) Y, Carboxyhemoglobin 1.2 L, O2 Concentration % 40%, Temperature 96.8 L, Respiration Rate 24, O2 Delivery Method BIPAP, Vent Mode ST , Expiratory Pressure 6, Inspiratory Pressure 24, Phlebotomy Draw Site RIGHT RADIAL 06/21/17 1338: Anion Gap 9, Estimated GFR > 60, BUN/Creatinine Ratio 45.0 H, Glucose 109 H, Calcium 9.5, Magnesium 4.1 H, Total Bilirubin 0.5, AST 28, ALT 48, Alkaline Phosphatase 82, Troponin I < 0.01, Rps-E-Dnmxtanzhgr Pept 466 H, Total Protein 6.4, Albumin 3.2 L, Globulin 3.2, Albumin/Globulin Ratio 1.0 L, CBC w Diff NO MAN DIFF REQ, RBC 4.25 L, MCV 92.0, MCH 29.1, MCHC 31.6 L, RDW 15.6 H, MPV 7.9, Gran % 74.4, Lymphocytes % 17.2 L, Monocytes % 5.8, Eosinophils % 2.5, Basophils % 0.1, Absolute Granulocytes 11.6 H, Absolute Lymphocytes 2.7, Absolute Monocytes 0.9 H, Absolute Eosinophils 0.4, Absolute Basophils 0 Microbiology 06/21 1545 NASOPHARYN: Influenza Virus A & B Rapid Smear - COMP 06/21 1510 BLOOD: Blood Culture - RECD 06/21 1337 BLOOD: Blood Culture - ORD Diagnostic Data EKG Results Normal Sinus Rhythm Assessment/Plan Assessment: Mr. 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 Patient had problem with his BiPAP from last discharge and the company came and repaired it. However, patient admitted that he was not using the BiPAP last evening. Patient also reported non-productive cough and was on Tamiflu however he had negative flu swab per patient. Patient was then found be SOB this AM and paramedics was called. ER Course: VSS on BIPAP, afebrile Physical exam as above Labs remarkable for leukocytosis of 15.6, H/H 12.4/39.1, ABG@7.31/75/83/38. BEP Na 142, K 4.8, Cl 93, CO2 40, Cr 0.4, ProBNP 466, -CXR: demonstrated opacities at lower zones bilaterally consistent with atelectasis similar to previous study. -EKG: Normal sinus rhythm without significant ST-T abnormalities. -Interventions in ER: Patient received 2x Duo Nebs, 1 Albuterol, and 125mg Solumedrol, and 2g Mg from EMS Ceftazidime x 1 + Azithromycin 500mg x 1 Assessment: Patient clinical status was afebrile with leukocytosis of 15.6 on admission, with hypoxic hypercapnic respiratory acidosis, unspecific CXR findings lead to diagnosis of COPD exacerbation from incompliance of BiPAP use. His elevation of serum bicarbonate indicated chronic hypercarbic from renal compensation. Patient had no significant wheezing or worsening course in typical COPD exacerbation however would still consider treating with steroids. Problem list #Hypercarbic Hypoxic respiratory failure #Hx of: CAD, COPD, JELANI, A-fib, HLD, Paralegia, Neurogenic bladder Plan - Observe in Gen Med - O2/BiPAP per RT, TRC/Nebulizer, Mucinex, Singlair, repeat ABG once patient agreed - Continue IV Solumedrol 40mg q8 for now and taper per clinical condition - Pending Blood/Sputum culture - Continued home meds including: Lasix, Lipitor, K-dur, Omeprazole, Nortryptyline, Singulair, Metoprolol, Sotalol, trazodone, Rifampin, Eliquis. DVT prophylaxis Eliquis + ALPS Regular Diet Full Code As Ranked By This Provider Problem List: 1. Difficulty with BiPAP use 2. BiPAP (biphasic positive airway pressure) dependence 3. Hypercapnic respiratory failure 4. COPD exacerbation Core Measures/Misc (02/06) Acute Coronary Syndrome ACS Diagnosis: No Congestive Heart Failure Congestive Heart Failure Diagnosis No Cerebrovascular Accident CVA/TIA Diagnosis: No VTE (View Protocol) VTE Risk Factors Age>40 No Mechanical VTE Prophylaxis d/t N/A MechProphylax Ordered No VTE Pharm Prophylaxis d/t NA PharmProphylax ordered Sepsis (View protocol) Sepsis Present: No Avery VOGEL,Shabbir 06/21/172112: General Information and HPI MD Statement: I have seen and personally examined ESTUARDO PARK and documented this H&P. The patient is a 67 year old M who presented with a patient stated chief complaint of []. Resident Review Statement Resident Statement: examined this patient, discussed with design intern, agreed with design intern Other Findings: This is a 67-year-old gentleman with a significant past medical history COPD on 2 L home oxygen, struct of sleep apnea or nocturnal BiPAP, atrial fibrillation on About, paraplegia secondary to spinal epidural abscess, hypertension, hyperlipidemia CAD status post stent placement in 2000 2005, aortic valve endocarditis, presents to [place] ED with complaints of shortness of breath in the setting of suboptimal BiPAP use. Impression * Hypercarbic respiratory failure as evident by an ABG remarkable for and a pH of 7.31 and a PCO2 of 75. Likely cause of this acute on chronic hypercarbia is the suboptimal use of the BiPAP as patient reports not using it overnight because he thought either the setting on the mask fitting was not corect. His elevated bicarbonate is indicative of chronic hypercarbia since this kind of compensation by the kidney takes time.Clinically he did not have any significant wheezing or does not report any increased sputum production or worsening cough to suggest an exacerbation of COPD. * History of chronic disease: CAD, COPD, JELANI, A. fib, hyperlipidemia, paraplegia , neurogenic bladder. Plan Place in GEN med observation Continue BiPAP for now and reassess in a couple hours with a repeat ABG O2 supplementation to keep sats above 88% Status post Solu-medrol by EMS, continue with Solu-Medrol 40 mg q8h for now and would assess tapering based on clinical status Follow-up blood cultures and sputum cultures Continue cardiac meds CODE STATUS: DNR/DNI Lissa Hare MD 06/21/17 4632: Attending MD Review Statement Attending Statement Attending MD Statement: examined this patient, discuss w/resident/PA/STAFF WRITER, agreed w/resident/PA/STAFF WRITER, reviewed EMR data (avail) Attending Assessment/Plan: 67M PMH COPD (on 2L O2/Bipap), BLE edema, JELANI, HTN, HLD, A-fib on eliquis, neurogenic bladder, depression, CAD s/p stent placement, IVC filter, Paralegia 2 /2 MRSA spinal abscess on Rifampin, recently discharged from , had non-working BiPAP at home, was repaired, and intermittent use since discharge, did not use it last night, and presented with severe shortness of breath today, found to be in acute hypercapnic respiratory failure. Placed on BiPAP in ED with improvement in breathing. Currently comfortable, very mild wheezing on exam, stable vitals, negative CXR, EKG NSR. Plan - Observation in general medicine - Solumedrol 40mg q12h with rapid taper - Continue BiPAP - Recheck ABG and BEP tomorrow morning - Pulmonary consult - Continue home medications - DVT PPx
[2017-06-21 20:45] VITALS: BP 128/70
[2017-06-21 22:07] VITALS: BP 128/70
[2017-06-22 07:07] VITALS: BP 118/64
--- NOTE | 2017-06-22 08:03 | PN- Housestaff ---
Cayetano Miller MD,[facility] 06/22/17 0803: Subjective Follow-up For: Shortness of breathing Tele-Events Since Last Visit: Off telemetry Subjective: Patient visited today, was lying in bed comfortably in no acute distress, drowsy but arousable. No fever or chills, improved shortness of breathing, no chest pain, no other events. It was planned to extend observation for 24hours, will make sure the BIPAP device is functinal before discharge. Review of Systems Constitutional: Reports: see HPI. Objective Last 24 Hrs of Vital Signs/I&O Vital Signs Date Time Temp Pulse Resp B/P B/P Pulse O2 O2 Flow FiO2 Mean Ox Delivery Rate 06/22 1015 61 118/64 06/22 0805 95 Nasal 2.0L Cannula 06/22 0800 97 Nasal 2.0L Cannula 06/22 0707 98.0 61 20 118/64 91 Nasal Cannula 06/22 0025 81 92 06/22 0000 93 Nasal 2.0L Cannula 06/21 2207 98.0 92 20 128/70 92 06/21 2045 98.8 80 20 128/70 95 06/21 2015 97.0 75 20 144/96 98 Nasal 2.0L Cannula 06/21 1908 BIPAP 40% 06/21 1818 96.6 74 24 137/71 97 BIPAP 06/21 1647 76 06/21 1602 95 BIPAP 06/21 1526 71 24 132/73 100 BIPAP 40% Intake & Output 06/22 1600 06/22 0800 06/22 0000 Intake Total 410 Output Total 375 Balance 410 -375 Intake, IV 10 Intake, Oral 400 Output, Urine 375 Patient 233 lb Weight Physical Exam General Appearance: Oriented X3, Cooperative, No Acute Distress, Drowsy but arousable Skin: No Significant Lesion Skin Temp/Moisture Exam: Warm/Dry Sepsis Skin Exam (color): Normal for Ethnicity HEENT: Atraumatic, EOMI Cardiovascular: Normal S1, Normal S2, ireeg irreg Lungs: bilateral ronchi and wheezing Abdomen: Soft, No Tenderness Neurological: bilateral leg paraplegia Extremities: No Edema Current Medications: Current Medications Sig/Danni Start time Last Medication Dose Route Stop Time Status Admin Acetaminophen 500 MG Q6P PRN 06/21 1745 AC PO Albuterol Sulfate 3 ML EVERY 4 HRS/AWAKE 06/21 1999 AC 06/22 INH 1507 Apixaban 5 MG BID 06/21 2200 AC 06/22 PO 1015 Atorvastatin Calcium 10 MG 1700 06/22 1700 AC PO Azithromycin 500 MG ONCE ONE 06/21 1500 DC 06/21 Sodium Chloride 250 ML IV 06/21 1559 1608 Docusate Sodium 100 MG DAILY 06/22 1000 AC 06/22 PO 1015 Furosemide 60 MG Q48 06/23 1000 AC PO Gabapentin 600 MG Q8 06/21 2235 AC 06/22 PO 1502 Guaifenesin 600 MG BID 06/21 220 AC 06/22 PO 1015 Methylprednisolone 40 MG Q12 06/22 1000 AC 06/22 IV 1015 Methylprednisolone 40 MG Q8 06/22 0600 DC IV Metoprolol Succinate 25 MG DAILY 06/22 1000 AC 06/22 PO 1015 Montelukast Sodium 10 MG DAILY 06/22 1000 AC 06/22 PO 1016 Nortriptyline HCl 10 MG DAILY 06/22 1000 AC 06/22 PO 1503 Omeprazole 20 MG DAILY 06/22 1000 AC 06/22 PO 1015 Potassium Chloride 20 MEQ DAILY 06/22 1000 DC PO Rifampin 300 MG BID 06/21 220 AC 06/22 PO 1015 Sotalol HCl 80 MG BID 06/21 220 AC 06/22 PO 1015 Trazodone HCl 50 MG QPM 06/21 2199 AC 06/21 PO 2351 Last 24 Hrs of Lab/Bryan Results Last 24 Hrs of Labs/Mics: Laboratory Tests 06/22/17624: Anion Gap 8, Estimated GFR > 60, BUN/Creatinine Ratio 46.0 H, CBC w Diff NO MAN DIFF REQ, RBC 3.99 L, MCV 92.5, MCH 29.4, MCHC 31.8 L, RDW 15.3 H, MPV 8.6, Gran % 72.2, Lymphocytes % 18.1 L, Monocytes % 8.0, Eosinophils % 1.5, Basophils % 0.2, Absolute Granulocytes 9.9 H, Absolute Lymphocytes 2.5, Absolute Monocytes 1.1 H, Absolute Eosinophils 0.2, Absolute Basophils 0 06/21/175: pH 7.38, pCO2 66 *H, pO2 68 L, HCO3 38 H, ABG O2 Sat (Measured) 92.0 L, Carboxyhemoglobin 0.4 L, O2 Concentration % 3L, O2 Delivery Method CPAP, Expiratory Pressure 8, Phlebotomy Draw Site RIGHT RADIAL Microbiology 06/21 5785 NASOPHARYN: Influenza Virus A & B Rapid Smear - COMP Assessment/Plan Assessment: Mr. 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 Patient had problem with his BiPAP from last discharge and the company came and repaired it. However, patient admitted that he was not using the BiPAP last evening. Patient also reported non-productive cough and was on Tamiflu however he had negative flu swab per patient. Patient was then found be SOB this AM and paramedics was called. ER Course: VSS on BIPAP, afebrile Physical exam as above Labs remarkable for leukocytosis of 15.6, H/H 12.4/39.1, ABG@7.31/75/83/38. BEP Na 142, K 4.8, Cl 93, CO2 40, Cr 0.4, ProBNP 466, -CXR: demonstrated opacities at lower zones bilaterally consistent with atelectasis similar to previous study. -EKG: Normal sinus rhythm without significant ST-T abnormalities. -Interventions in ER: Patient received 2x Duo Nebs, 1 Albuterol, and 125mg Solumedrol, and 2g Mg from EMS Ceftazidime x 1 + Azithromycin 500mg x 1 Assessment: Patient clinical status was afebrile with leukocytosis of 15.6 on admission, with hypoxic hypercapnic respiratory acidosis, unspecific CXR findings lead to diagnosis of COPD exacerbation from incompliance of BiPAP use. His elevation of serum bicarbonate indicated chronic hypercarbic from renal compensation. Patient had no significant wheezing or worsening course in typical COPD exacerbation however would still consider treating with steroids. Patient was placed under observation for management of following condition. to further stablize patient it was panned to extend observation for another 24 hours. Problem list #Hypercarbic Hypoxic respiratory failure #Hx of: CAD, COPD, JELANI, A-fib, HLD, Paralegia, Neurogenic bladder Plan - Continue observe in Gen Med (physically in tele) - O2/BiPAP per RT, TRC/Nebulizer, Mucinex, Singlair, repeat ABG once patient agreed - Continue IV Solumedrol 40mg q8 for now and taper per clinical condition - Pending Blood/Sputum culture - Continued home meds including: Lasix, Lipitor, K-dur, Omeprazole, Nortryptyline, Singulair, Metoprolol, Sotalol, trazodone, Rifampin, Eliquis. - pulm consult was placed with Dr Kessler - manager technical sales consult for fixing/application of BiPAP device at home DVT prophylaxis Eliquis + ALPS Regular Diet Full Code Problem List: 1. Hypercapnic respiratory failure Pain Ratin Pain Location: None Pain Goal: Pain 4 or less Pain Plan: Continue current paln Tomorrow's Labs & Rationales: CBc BEP Ammon Santos 06/22/17 1453: Attending MD Review Statement Attending Statement Attending MD Statement: examined this patient, discuss w/resident/PA/EVP AND CHIEF OPERATING OFFICER, agreed w/resident/PA/EVP AND CHIEF OPERATING OFFICER, reviewed EMR data (avail), discussed with nursing, discussed with case mgmt Attending Assessment/Plan: pts resp status much better. His ABG shows improvement. WIll fu on pulm recommendations. pt encouraged to use his Bipap at night. Pt at baseline has high pCo2.
[2017-06-22 08:17] LABS: ABSOLUTE BASOPHIL COUNT 0 /CUMM (0.0-0.2); ABSOLUTE EOSINOPHIL COUNT 0.2 /CUMM (0.0-0.7); ABSOLUTE GRANULOCYTE CT 9.9 /CUMM (1.4-6.5); ABSOLUTE LYMPH COUNT 2.5 /CUMM (1.2-3.4); ABSOLUTE MONOCYTE COUNT 1.1 /CUMM (0.10-0.60); BASOPHIL % 0.2 % (0.0-2.0); EOSINOPHIL % 1.5 % (0-5); GRANULOCYTE % 72.2 % (42.2-75.2); MEAN CORPUSCULAR HGB 29.4 PG (27.0-31.0); MEAN CORPUSCULAR HGB CONC 31.8 G/DL (33.0-37.0); MEAN CORPUSCULAR VOLUME 92.5 FL (80.0-94.0); MEAN PLATELET VOLUME 8.6 FL (7.4-10.4); PLATELET COUNT 241 /CUMM (130-400); RBC DISTRIBUTION WIDTH 15.3 % (11.5-14.5); RED BLOOD CELL CT 3.99 /CUMM (4.70-6.10); WHITE BLOOD CELL COUNT 13.7 /CUMM (4.8-10.8)
--- NOTE | 2017-06-22 15:00 | Cons- Pulmonary ---
General Information and HPI Consulting Request Date of Consult: 06/22/17 Requested By: Dr. 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 The patient has had multiple admissions for acute exacerbation of COPD. He also has a history of JELANI with BIPAP non-compliance. The patient was admitted yesterday with a non-productive cough, noting he was on Tamiflu however he had negative flu swab per patient. Patient was then found be SOB on the morning of admission and 911 was called. Patient received 2x Duo Nebs, 1 Albuterol, and 125mg Solumedrol, and 2g Mg during transportation and felt improved. He was then put on BiPAP in ER. He is currently awake, alert and oriented, off BIPAP. He feels back to baseline and offers no new complaints. He denies any increased shortness of breath, sputum production, fever, chills, chest congestion or chest pain. He continues to wear nocturnal BIPAP. Allergies/Medications Allergies: Coded Allergies: heparin (Intermediate, SWELLING, RASH 03/07/17) vancomycin (Intermediate, HIVES, SKIN CRACKES, TURNS RED, SWELLS AND PEELS 03/07) warfarin (From COUMADIN) (Intermediate, RASH 03/07/17) Home Med List: Acetaminophen (Tylenol Arthritis) 650 MG TABLET.ER 1 TAB PO Q6-PRN PRN PAIN ( Reported) Albuterol Sulfate (Ventolin Hfa) 90 MCG HFA.AER.AD 2 PUF INH AD PRN COPD ( Reported) Apixaban (Eliquis) 5 MG TABLET 5 MG PO BID atrial fibrillation Ascorbate Calcium (Vitamin C) 500 MG TABLET 1 TAB PO BID SUPPLEMENT (Reported ) Atomoxetine HCl (Strattera) 40 MG CAPSULE 1 CAP PO QAM MENTAL HEALTH ( Reported) Baclofen 20 MG TABLET 1 TAB PO BID MUSCLE RELAXER (Reported) Bisacodyl (Dulcolax) 10 MG SUPP.RECT 1 SUP RC Q48 GI (Reported) Budesonide/Formoterol Fumarate (Symbicort 80-4.5 Mcg Inhaler) 80 MCG-4.5 MCG/ ACTUATION HFA.AER.AD 2 PUF INH BID COPD (Reported) Docusate Sodium (Stool Softener) 100 MG CAPSULE 1 CAP PO DAILY STOOL SOFTENER (Reported) Doxycycline Hyclate 100 MG CAPSULE 1 CAP PO BID infection (Reported) Evolocumab (Repatha Sureclick) 140 MG/ML PEN.INJCTR 1 ML SC Q 2 WEEKS CHOLESTEROL (Reported) Furosemide 20 MG TABLET 3 TAB PO Q48 DIURETIC (Reported) Gabapentin 600 MG TABLET 1 TAB PO TID NEUROPATHY (Reported) Guaifenesin (Mucinex) 600 MG TAB.ER.12H 1 TAB PO BID CONGESTION (Reported) Lactobacillus Acidophilus (Acidophilus) 1 EACH CAPSULE 1 CAP PO BID PROBIOTIC (Reported) Lorazepam 1 MG TABLET 1 TAB PO BID ANXIETY (Reported) Magnesium Oxide (Magnesium) 400 MG CAPSULE 1 CAP PO 0600 SUPPLEMENT (Reported ) Metoprolol Succ XL (Toprol XL) 25 MG TAB 1 TAB PO DAILY HEART (Reported) Montelukast Sodium (Singulair) 10 MG TABLET 1 TAB PO DAILY ALLERGIES ( Reported) Multivitamin (Daily Value) 1 EACH TABLET 1 TAB PO DAILY VITAMIN SUPPORT ( Reported) Nortriptyline HCl 10 MG CAPSULE 1 CAP PO DAILY UNKNOWN (Reported) Omeprazole 20 MG CAPSULE.DR 1 CAP PO DAILY ACID REFLUX (Reported) Oxycodone HCl/Acetaminophen (Oxycodone-Acetaminophen 5-325) 5 MG-325 MG TABLET 1 TAB PO Q4H PRN PAIN (Reported) Potassium Chloride 20 MEQ TAB.ER.PRT 1 TAB PO DAILY SUPPLEMENT (Reported) Rifampin (Rifadin) 300 MG CAPSULE 300 MG PO BID MRSA (Reported) Rosuvastatin Calcium (Crestor) 5 MG TABLET 1 TAB PO DAILY CHOLESTEROL ( Reported) Sotalol (Betapace) 80 MG TABLET 80 MG PO BID AARYTHMIAS Tiotropium [place] (Spiriva) 18 MCG CAP.W.DEV 1 CAP INH DAILY BREATHING PROBLEMS (Reported) Trazodone HCl 50 MG TABLET 1 TAB PO QPM SLEEP (Reported) Review of Systems Review of Systems All Other Systems: Reviewed and Negative Past History Travel History Traveled to [place] past 21 day No Medical History Blood Transfusion Hx: No Neurological: C6-7 ABSCESS PARAPLEGIA EENT: NONE Cardiovascular: AFIB, hypertension, hyperlipidemia, myocardial infarction Respiratory: asthma, COPD, OXYGEN DEPEND 2L Gastrointestinal: NONE Hepatic: NONE Renal: neurogenic bladder Musculoskeletal: PARAPLEGIA R/T ABSCESS Psychiatric: NONE Endocrine: NONE Blood Disorders: NONE Cancer(s): NONE 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 Ambulation: wheelchair IADLs Independent: shopping, housework, finances, food prep, telephone, transportation , medication admin. Exam & Diagnostic Data Last 24 Hrs of Vital Signs/I&O Vital Signs Date Time Temp Pulse Resp B/P B/P Pulse O2 O2 Flow FiO2 Mean Ox Delivery Rate 06/22 1015 61 118/64 06/22 0805 95 Nasal 2.0L Cannula 06/22 0800 97 Nasal 2.0L Cannula 06/22 0707 98.0 61 20 118/64 91 Nasal Cannula 06/22 0025 81 92 06/22 0000 93 Nasal 2.0L Cannula 06/21 2207 98.0 92 20 128/70 92 06/21 2045 98.8 80 20 128/70 95 06/21 2015 97.0 75 20 144/96 98 Nasal 2.0L Cannula 06/21 1908 BIPAP 40% 06/21 1818 96.6 74 24 137/71 97 BIPAP 06/21 1647 76 06/21 1602 95 BIPAP 06/21 1526 71 24 132/73 100 BIPAP 40% Intake & Output 06/22 1600 06/22 0800 06/22 0000 Intake Total 410 Output Total 375 Balance 410 -375 Intake, IV 10 Intake, Oral 400 Output, Urine 375 Patient 233 lb Weight Physical Exam General Appearance: no apparent distress, alert, awake, comfortable Head: atraumatic, normal appearance Neck: supple Respiratory: quiet respiration, clear anteriorly Cardiovascular: regular rate/rhythm Gastrointestinal: normal bowel sounds, soft, non-tender Extremities: no edema Skin: intact, normal color, warm/dry Last 48 Hrs of Labs/Bryan: Laboratory Tests 06/22/17 0625: Anion Gap 8, Estimated GFR > 60, BUN/Creatinine Ratio 46.0 H, CBC w Diff NO MAN DIFF REQ, RBC 3.99 L, MCV 92.5, MCH 29.4, MCHC 31.8 L, RDW 15.3 H, MPV 8.6, Gran % 72.2, Lymphocytes % 18.1 L, Monocytes % 8.0, Eosinophils % 1.5, Basophils % 0.2, Absolute Granulocytes 9.9 H, Absolute Lymphocytes 2.5, Absolute Monocytes 1.1 H, Absolute Eosinophils 0.2, Absolute Basophils 0 06/21/17 2305: pH 7.38, pCO2 66 *H, pO2 68 L, HCO3 38 H, ABG O2 Sat (Measured) 92.0 L, Carboxyhemoglobin 0.4 L, O2 Concentration % 3L, O2 Delivery Method CPAP, Expiratory Pressure 8, Phlebotomy Draw Site RIGHT RADIAL 06/21/17 1430: pH 7.31 L, pCO2 75 *H, pO2 83, HCO3 38 H, ABG O2 Sat (Measured) 95.0 L, P-50 (Temp Corrected) Y, Carboxyhemoglobin 1.2 L, O2 Concentration % 40%, Temperature 96.8 L, Respiration Rate 24, O2 Delivery Method BIPAP, Vent Mode ST , Expiratory Pressure 6, Inspiratory Pressure 24, Phlebotomy Draw Site RIGHT RADIAL 06/21/17 1338: Anion Gap 9, Estimated GFR > 60, BUN/Creatinine Ratio 45.0 H, Glucose 109 H, Calcium 9.5, Magnesium 4.1 H, Total Bilirubin 0.5, AST 28, ALT 48, Alkaline Phosphatase 82, Troponin I < 0.01, Qcv-L-Duhdjiywdcc Pept 466 H, Total Protein 6.4, Albumin 3.2 L, Globulin 3.2, Albumin/Globulin Ratio 1.0 L, CBC w Diff NO MAN DIFF REQ, RBC 4.25 L, MCV 92.0, MCH 29.1, MCHC 31.6 L, RDW 15.6 H, MPV 7.9, Gran % 74.4, Lymphocytes % 17.2 L, Monocytes % 5.8, Eosinophils % 2.5, Basophils % 0.1, Absolute Granulocytes 11.6 H, Absolute Lymphocytes 2.7, Absolute Monocytes 0.9 H, Absolute Eosinophils 0.4, Absolute Basophils 0 Microbiology 06/21 1545 NASOPHARYN: Influenza Virus A & B Rapid Smear - COMP Diagnostic Data CXR Results 1. The study redemonstrates opacities at the lower zones bilaterally. 2. The cardiac silhouette is normal in size. Assessment/Plan Impression/Plan: 1. Chronic respiratory failure. 2. Uncontrolled JELANI with BIPAP non-compliance. 3. Paraplegia. 4. Bibasilar opacities/atelectasis. 5. Severer COPD. Recommendations: * Continue Solumedrol. * Continue nebs/TRC. * Incentive spirometry. * Continue inhaler regimen. * Oxygen supplementation to continue. * Nocturnal Bipap. * DVT prophylaxis - on Eliquis. * Home tomorrow? * Continue all supportive care. Consult Acknowledgment - Thank you for your consult request.
[2017-06-22 23:39] VITALS: BP 120/70
[2017-06-23 06:33] VITALS: BP 145/76
--- NOTE | 2017-06-23 08:11 | PN- Housestaff ---
Avery VOGEL,Shabbir 06/23/17 0811: Subjective Follow-up For: Hypercarbic respiratory failure Subjective: Patient is seen and examined at bedside. He does not endorse any increased shortness of breath, he appears comfortable and in no apparent distress compared to previous days. He denies any fever, chills, nausea, vomiting, chest pain, palpitation, new focal neurological deficit, abdominal pain or dysuria. No acute overnight event reported by nursing staff. Review of Systems Constitutional: Reports: see HPI. Objective Last 24 Hrs of Vital Signs/I&O Vital Signs Date Time Temp Pulse Resp B/P B/P Pulse O2 O2 Flow FiO2 Mean Ox Delivery Rate 06/23 09 84 145/76 06/23 0802 93 Nasal 2.0L Cannula 06/23 0633 98.5 84 20 145/76 97 Nasal 2.0L Cannula 06/23 0311 96 Nasal 2.0L Cannula 06/23 0032 82 90 06/23 0000 CPAP 06/22 2339 98.6 65 20 120/70 91 Nasal 2.0L Cannula 06/22 2242 72 92 06/22 1925 Nasal 2.0L Cannula 06/22 1015 61 118/64 Intake & Output 06/23 1600 06/23 0800 06/23 0000 Intake Total 240 480 Output Total 400 Balance -160 480 Intake, Oral 240 480 Output, Urine 400 Physical Exam General Appearance: Alert, Oriented X3, Cooperative Other Physical Findings: Skin: No Significant Lesion Skin Temp/Moisture Exam: Warm/Dry Sepsis Skin Exam (color): Normal for Ethnicity HEENT: Atraumatic, EOMI Cardiovascular: Normal S1, Normal S2, ireeg irreg Lungs: bilateral ronchi and wheezing Abdomen: Soft, No Tenderness Neurological: bilateral leg paraplegia Extremities: No Edema Current Medications: Current Medications Sig/Danni Start time Last Medication Dose Route Stop Time Status Admin Acetaminophen 500 MG Q6P PRN 06/21 1745 AC PO Albuterol Sulfate 3 ML EVERY 4 HRS/AWAKE 06/21 1999 AC 06/23 INH 0750 Apixaban 5 MG BID 06/21 2200 AC 06/23 PO 0929 Atorvastatin Calcium 10 MG 1700 06/22 1700 AC 06/22 PO 1647 Docusate Sodium 100 MG DAILY 06/22 1000 AC 06/23 PO 0929 Furosemide 60 MG Q48 06/23 1000 AC 06/23 PO 0929 Gabapentin 600 MG Q8 06/21 2235 AC 06/23 PO 0512 Guaifenesin 600 MG BID 06/21 2200 AC 06/23 PO 0929 Methylprednisolone 40 MG Q12 06/22 1000 AC 06/23 IV 0928 Metoprolol Succinate 25 MG DAILY 06/22 1000 AC 06/23 PO 0929 Montelukast Sodium 10 MG DAILY 06/22 1000 AC 06/23 PO 0929 Nortriptyline HCl 10 MG DAILY 06/22 1000 AC 06/23 PO 0928 Omeprazole 20 MG DAILY 06/22 1000 AC 06/23 PO 0929 Potassium Chloride 20 MEQ DAILY 06/22 1000 DC PO Rifampin 300 MG BID 06/21 2200 AC 06/22 PO 2224 Sotalol HCl 80 MG BID 06/21 220 AC 06/23 PO 0929 Trazodone HCl 50 MG QPM 06/21 2199 AC 06/22 PO 2201 Last 24 Hrs of Lab/Bryan Results Last 24 Hrs of Labs/Mics: Laboratory Tests 06/23/17 0632: Anion Gap 8, Estimated GFR > 60, BUN/Creatinine Ratio 42.5 H, CBC w Diff NO MAN DIFF REQ, RBC 3.93 L, MCV 92.3, MCH 29.5, MCHC 31.9 L, RDW 15.0 H, MPV 8.5, Gran % 76.1 H, Lymphocytes % 17.7 L, Monocytes % 5.5, Eosinophils % 0.5, Basophils % 0.2, Absolute Granulocytes 10.0 H, Absolute Lymphocytes 2.3, Absolute Monocytes 0.7 H, Absolute Eosinophils 0.1, Absolute Basophils 0 06/22/17 2330: Anion Gap 6, Estimated GFR > 60, BUN/Creatinine Ratio 47.5 H Assessment/Plan Assessment: Mr. 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 Patient had problem with his BiPAP from last discharge and the company came and repaired it. However, patient admitted that he was not using the BiPAP last evening. Patient also reported non-productive cough and was on Tamiflu however he had negative flu swab per patient. Patient was then found be SOB this AM and paramedics was called. ER Course: VSS on BIPAP, afebrile Physical exam as above Labs remarkable for leukocytosis of 15.6, H/H 12.4/39.1, ABG@7.31/75/83/38. BEP Na 142, K 4.8, Cl 93, CO2 40, Cr 0.4, ProBNP 466, -CXR: demonstrated opacities at lower zones bilaterally consistent with atelectasis similar to previous study. -EKG: Normal sinus rhythm without significant ST-T abnormalities. -Interventions in ER: Patient received 2x Duo Nebs, 1 Albuterol, and 125mg Solumedrol, and 2g Mg from EMS Ceftazidime x 1 + Azithromycin 500mg x 1 Assessment and plan Acute on chronic hypercarbic respiratory failure. On day 3, clinically improved with stable respiratory status. Will discharge patient today with a prednisone taper. Reiterated to patient about the compliance of BiPAP use and to coordinate with BiPAP apply company on re-fitting and any malfunctioning issues. She is aware that he will need to follow-up with his director wholesale ( Ilana Bustillos MD). He is to continue with his regular home regimen of medications. Problem List: 1. Hypercapnic respiratory failure Pain Ratin Pain Location: NoneNONE Pain Goal: Pain 4 or less Pain Plan: Per pathway Tomorrow's Labs & Rationales: None discharge Slade VOGEL,Yuly 06/23/17 1209: Attending MD Review Statement Attending Statement Attending MD Statement: examined this patient, discuss w/resident/PA/CAB STATION ATTENDANT, agreed w/resident/PA/CAB STATION ATTENDANT, reviewed EMR data (avail), discussed with nursing, discussed with case mgmt, reviewed images, amended to note Attending Assessment/Plan: And examined, overall doing better. Breathing is back to his baseline. Patient has troubles with his BiPAP machine which she claims that has been fixed. He has been kept on IV steroids this can be switched to oral. Patient remains afebrile and he has a leukocytosis which is chronic. Patient medically stable for discharge. Reportedly his partner has Flu-like symptoms as well as fever. At this point we'll discharge the patient on prophylactic dose of Tamiflu.
--- NOTE | 2017-06-23 08:20 | Patient Discharge Instructions ---
Discharge Instructions General Discharge Information You were seen/treated for: breathing problem (your carbon dioxide level was increased due to worsening of your chronic condition) Special Instructions: Please continue to use your bipap at night on a daily basis without any fail. Please contact your doctor or seek immediate medical help if your breathing worsens Please follow up with your primary care doctor in 1 week after being discharged Please follow up with Dr Bustillos within 1 week after being discharged Acute Coronary Syndrome Inclusion Criteria At DC or during hospital stay patient has or had the following: ACS DIAGNOSIS No Discharge Core Measures Meds if any: Prescribed or Continued at Discharge Meds if any: NOT Prescribed or Continued at Discharge Congestive Heart Failure Inclusion Criteria At DC or during hospital stay patient has or had the following: CHF DIAGNOSIS No Discharge Core Measures Meds if any: Prescribed or Continued at Discharge Meds if any: NOT Prescribed or Continued at Discharge Cerebrovascular accident Inclusion Criteria At DC or during hospital stay patient has or had the following: CVA/TIA Diagnosis No Discharge Core Measures Meds if any: Prescribed or Continued at Discharge Meds if any: NOT Prescribed or Continued at Discharge Venous thromboembolism Inclusion Criteria VTE Diagnosis No VTE Type NONE VTE Confirmed by (Test) NONE Discharge Core Measures - Per Current guidelines, there needs to be overlap - treatment for the first 5 days of Warfarin therapy. - If discharged on Warfarin prior to 5 days of - overlap therapy, the patient will need to be - assessed for post discharge needs including - *Post discharge parental anticoagulation - *Warfarin and/or parental anticoagulation education - *Follow up date to check INR post discharge At least 5 days overlap therapy as Inpatient No Meds if any: Prescribed or Continued at Discharge Note: Overlap Therapy is Warfarin and Anticoagulant Meds if any: NOT Prescribed or Continued at Discharge
[2017-06-23 08:48] LABS: ABSOLUTE BASOPHIL COUNT 0 /CUMM (0.0-0.2); ABSOLUTE EOSINOPHIL COUNT 0.1 /CUMM (0.0-0.7); ABSOLUTE LYMPH COUNT 2.3 /CUMM (1.2-3.4); ABSOLUTE MONOCYTE COUNT 0.7 /CUMM (0.10-0.60); BASOPHIL % 0.2 % (0.0-2.0); EOSINOPHIL % 0.5 % (0-5); GRANULOCYTE % 76.1 % (42.2-75.2); HEMATOCRIT 36.2 % (42-52); MEAN CORPUSCULAR HGB 29.5 PG (27.0-31.0); MEAN CORPUSCULAR HGB CONC 31.9 G/DL (33.0-37.0); MEAN CORPUSCULAR VOLUME 92.3 FL (80.0-94.0); MEAN PLATELET VOLUME 8.5 FL (7.4-10.4); PLATELET COUNT 237 /CUMM (130-400); RED BLOOD CELL CT 3.93 /CUMM (4.70-6.10); WHITE BLOOD CELL COUNT 13.1 /CUMM (4.8-10.8)
--- NOTE | 2017-06-23 09:04 | PN- Pulmonary ---
Subjective HPI/Critical Care Issues: The patient is sleeping comfortably, arousable. Seen and examined. No overnight events. Objective Current Medications: Current Medications Sig/Danni Start time Last Medication Dose Route Stop Time Status Admin Acetaminophen 500 MG Q6P PRN 06/21 1745 AC PO Albuterol Sulfate 3 ML EVERY 4 HRS/AWAKE 06/21 1999 AC 06/23 INH 0750 Apixaban 5 MG BID 06/21 2200 AC 06/22 PO 2202 Atorvastatin Calcium 10 MG 1700 06/22 1700 AC 06/22 PO 1647 Docusate Sodium 100 MG DAILY 06/22 1000 AC 06/22 PO 1015 Furosemide 60 MG Q48 06/23 1000 AC PO Gabapentin 600 MG Q8 06/21 2235 AC 06/23 PO 0512 Guaifenesin 600 MG BID 06/21 2200 AC 06/22 PO 2202 Methylprednisolone 40 MG Q12 06/22 1000 AC 06/22 IV 2202 Metoprolol Succinate 25 MG DAILY 06/22 1000 AC 06/22 PO 1015 Montelukast Sodium 10 MG DAILY 06/22 1000 AC 06/22 PO 1016 Nortriptyline HCl 10 MG DAILY 06/22 1000 AC 06/22 PO 1503 Omeprazole 20 MG DAILY 06/22 1000 AC 06/22 PO 1015 Potassium Chloride 20 MEQ DAILY 06/22 1000 DC PO Rifampin 300 MG BID 06/21 2200 AC 06/22 PO 2224 Sotalol HCl 80 MG BID 06/21 2200 AC 06/22 PO 2202 Trazodone HCl 50 MG QPM 06/21 2200 AC 06/22 PO 2201 Vital Signs & I&O Last 24 Hrs of Vitals and I&O: Vital Signs Date Time Temp Pulse Resp B/P B/P Pulse O2 O2 Flow FiO2 Mean Ox Delivery Rate 06/23 08 93 Nasal 2.0L Cannula 06/23 0633 98.5 84 20 145/76 97 Nasal 2.0L Cannula 06/23 0311 96 Nasal 2.0L Cannula 06/23 0032 82 90 06/23 0000 CPAP 06/22 2339 98.6 65 20 120/70 91 Nasal 2.0L Cannula 06/22 2242 72 92 06/22 1925 Nasal 2.0L Cannula 06/22 1015 61 118/64 Intake & Output 06/23 1600 06/23 0806/23 0000 Intake Total 240 480 Output Total 400 Balance -160 480 Intake, Oral 240 480 Output, Urine 400 Physical Exam General Appearance: no apparent distress, alert, awake, comfortable Head: atraumatic, normal appearance Neck: supple Respiratory: quiet respiration, clear anteriorly Cardiovascular: regular rate/rhythm Gastrointestinal: normal bowel sounds, soft, non-tender Extremities: no edema Skin: intact, normal color, warm/dry Impression/Plan Impression/Plan Impression/Plan: 1. Chronic respiratory failure. 2. Uncontrolled JELANI with BIPAP non-compliance. 3. Paraplegia. 4. Bibasilar opacities/atelectasis. 5. Severer COPD. Recommendations: * Agree with prednisone taper. * Continue nebs/TRC. * Incentive spirometry. * Continue inhaler regimen. * Oxygen supplementation to continue. * Nocturnal Bipap. * DVT prophylaxis - on Eliquis. * STR? * Continue all supportive care.
[2017-06-23 09:29] VITALS: BP 145/76
[2017-06-23] MEDS ORDERED: PREDNISONE10 M2 PO ×3 (10:00→18:43)
[2017-06-23] MEDS ORDERED: TAMIFLU75 M1 PO ×2 (12:00→18:43)
== END 2017-06-23 13:40 | disposition home health service (06) ==
LOC: ERH 13:24 → ERHI 14:46 → 1NO 14:46 → 2NB 14:46 → CANRESERV 16:37 → ENRESERV 16:37 → CANRESERV 18:10 → ENRESERV 18:48 → EDBEDREQ 18:57 → ENTRNSPT 20:03 → 1NO 20:23 → CMPTRNSPT 20:41 → 1NO 06-22 11:58 → ENTRNSPT 06-22 20:16 → EDTRNSPTSTS 06-22 20:40 → 2NB 06-22 20:46 → CMPTRNSPT 06-22 20:52 → ENPENDDIS 06-23 11:37 → 2NB 06-23 13:40
PROVIDERS: Emergency Medicine; Radiology Vascular & Interventional Radiology; Student in an Organized Health Care Education/Training Program
DX: J96.22 Acute and chronic respiratory failure with hypercapnia (principal); J44.1 Chronic obstructive pulmonary disease with (acute) exacerbation; Z99.81 Dependence on supplemental oxygen; E78.5 Hyperlipidemia, unspecified; N31.9 Neuromuscular dysfunction of bladder, unspecified; G82.20 Paraplegia, unspecified; G47.33 Obstructive sleep apnea (adult) (pediatric); I48.0 Paroxysmal atrial fibrillation; Z79.01 Long term (current) use of anticoagulants; Z86.14 Personal history of Methicillin resistant Staphylococcus aureus infection; I25.2 Old myocardial infarction; I25.10 Atherosclerotic heart disease of native coronary artery without angina pectoris; Z95.5 Presence of coronary angioplasty implant and graft
CPT/HCPCS: 1263; 1288; 1328; 1530; 1748; 36415; 71045; 82436; 87040; 87804; 87804-59; 93005; 93010; 96374; 96375; 96376; 99291; G0378; J0713; J2920

== ENCOUNTER 2017-06-25 12:42 | Inpatient (IN) | payer OTHER, MEDICARE ==
[~2017-06-25] VITALS: Ht 175.3 cm; Wt 101.2 kg
[~2017-06-25 12:42] MED LIST changes: +TAMIFLU75 M1 PO
--- NOTE | 2017-06-25 12:47 | ED DYSPNEA/ASTHMA COMPLAINT ---
History of Present Illness General Chief Complaint: Dyspnea (COPD, CHF, Other) Stated Complaint: BIBA SOB Source: patient, old records Exam Limitations: no limitations Vital Signs & Intake/Output Vital Signs & Intake/Output Vital Signs Date Time Temp Pulse Resp B/P B/P Pulse O2 O2 Flow FiO2 Mean Ox Delivery Rate 06/29 1030 93 Nasal 2.0L Cannula 06/29 0954 98.1 68 20 120/66 06/29 0800 Nasal 2.0L Cannula 06/29 0750 98.1 68 20 120/66 91 Nasal Room Air Cannula 06/29 0609 94 Nasal 2.0L Cannula 06/29 0608 94 06/29 0116 60 93 06/29 0000 96 CPAP 2.0L 06/28 2215 96.7 67 20 110/60 96 06/28 1600 Nasal 2.0L Cannula ED Intake and Output 06/29 0000 06/28 1200 Intake Total 820 340 Output Total 2024 800 Balance -1205 -460 Intake, IV 20 0 Intake, Oral 800 340 Number 0 Bowel Movements Output, Urine 2024 800 Allergies Coded Allergies: heparin (Intermediate, SWELLING, RASH 03/07/17) vancomycin (Intermediate, HIVES, SKIN CRACKES, TURNS RED, SWELLS AND PEELS 03/07) warfarin (From COUMADIN) (Intermediate, RASH 03/07/17) Reconcile Medications Acetaminophen (Tylenol Arthritis) 650 MG TABLET.ER 1 TAB PO Q6-PRN PRN PAIN ( Reported) Albuterol Sulfate (Ventolin Hfa) 90 MCG HFA.AER.AD 2 PUF INH AD PRN COPD ( Reported) Apixaban (Eliquis) 5 MG TABLET 5 MG PO BID atrial fibrillation Ascorbate Calcium (Vitamin C) 500 MG TABLET 1 TAB PO BID SUPPLEMENT (Reported ) Atomoxetine HCl (Strattera) 40 MG CAPSULE 1 CAP PO QAM MENTAL HEALTH ( Reported) Azithromycin 500 MG TABLET 1 TAB PO DAILY COPD Exacerbation . Baclofen 20 MG TABLET 1 TAB PO BID MUSCLE RELAXER (Reported) Bisacodyl (Dulcolax) 10 MG SUPP.RECT 1 SUP RC Q48 GI (Reported) Budesonide/Formoterol Fumarate (Symbicort 80-4.5 Mcg Inhaler) 80 MCG-4.5 MCG/ ACTUATION HFA.AER.AD 2 PUF INH BID COPD (Reported) Docusate Sodium (Stool Softener) 100 MG CAPSULE 1 CAP PO DAILY STOOL SOFTENER (Reported) Doxycycline Hyclate 100 MG CAPSULE 1 CAP PO BID infection (Reported) Evolocumab (Repatha Sureclick) 140 MG/ML PEN.INJCTR 1 ML SC Q 2 WEEKS CHOLESTEROL (Reported) Furosemide 20 MG TABLET 3 TAB PO Q48 DIURETIC (Reported) Gabapentin 600 MG TABLET 1 TAB PO TID NEUROPATHY (Reported) Guaifenesin (Mucinex) 600 MG TAB.ER.12H 1 TAB PO BID CONGESTION (Reported) Lactobacillus Acidophilus (Acidophilus) 1 EACH CAPSULE 1 CAP PO BID PROBIOTIC (Reported) Lorazepam 1 MG TABLET 1 TAB PO BID ANXIETY (Reported) Magnesium Oxide (Magnesium) 400 MG CAPSULE 1 CAP PO 0600 SUPPLEMENT (Reported ) Metoprolol Succ XL (Toprol XL) 25 MG TAB 1 TAB PO DAILY HEART (Reported) Montelukast Sodium (Singulair) 10 MG TABLET 1 TAB PO DAILY ALLERGIES ( Reported) Multivitamin (Daily Value) 1 EACH TABLET 1 TAB PO DAILY VITAMIN SUPPORT ( Reported) Nortriptyline HCl 10 MG CAPSULE 1 CAP PO DAILY UNKNOWN (Reported) Omeprazole 20 MG CAPSULE.DR 1 CAP PO DAILY ACID REFLUX (Reported) Oxycodone HCl/Acetaminophen (Oxycodone-Acetaminophen 5-325) 5 MG-325 MG TABLET 1 TAB PO Q4H PRN PAIN (Reported) Potassium Chloride 20 MEQ TAB.ER.PRT 1 TAB PO DAILY SUPPLEMENT (Reported) Prednisone 10 MG TABLET 1 TAB PO BID Resp Failure Steroid Taper . Rifampin (Rifadin) 300 MG CAPSULE 300 MG PO BID MRSA (Reported) Rosuvastatin Calcium (Crestor) 5 MG TABLET 1 TAB PO DAILY CHOLESTEROL ( Reported) Sotalol (Betapace) 80 MG TABLET 80 MG PO BID AARYTHMIAS Tiotropium [place] (Spiriva) 18 MCG CAP.W.DEV 1 CAP INH DAILY BREATHING PROBLEMS (Reported) Trazodone HCl 50 MG TABLET 1 TAB PO QPM SLEEP (Reported) Triage Nurses Notes Reviewed? 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 with severe shortness of breath today, found to be in acute hypercapnic respiratory failure, somnolent. pCO2 83 on ABG, started on BiPAP. Past History Travel History Traveled to [place] past 21 day No Medical History Any Pertinent Medical History? 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 No Review of Systems Review of Systems Constitutional: Reports: no symptoms. EENTM: Reports: no symptoms. Respiratory: Reports: no symptoms. Cardiovascular: Reports: no symptoms. GI: Reports: no symptoms. Genitourinary: Reports: no symptoms. Musculoskeletal: Reports: no symptoms. Skin: Reports: no symptoms. Neurological/Psychological: Reports: no symptoms. Hematologic/Endocrine: Reports: no symptoms. Immunologic/Allergic: Reports: no symptoms. All Other Systems: Reviewed and Negative Physical Exam Physical Exam General Appearance: well developed/nourished, lethargic Head: atraumatic, normal appearance Eyes: Bilateral: normal appearance. Ears, Nose, Throat: normal pharynx, normal ENT inspection, hearing grossly normal Neck: normal inspection, supple, full range of motion Respiratory: wheezing Cardiovascular: regular rate/rhythm Gastrointestinal: soft, non-tender Extremities: normal inspection, normal range of motion, no edema Neurologic/Psych: awake, normal mood/affect Skin: intact, normal color, warm/dry Core Measures ACS in differential dx? No CVA/TIA Diagnosis No Sepsis Present: No Sepsis Focused Exam Completed? No Progress Differential Diagnosis: asthma, AMI, altitude sickness, bronchitis, costochondritis, CHF, COPD, musculoskeletal pain, pericarditis, pulmonary embolism, pneumonia, pneumothorax, rib fracture, unstable angina Plan of Care: Orders Procedure Date/time Status Orellana, Insertion/Removal/Asses 06/29 0545 Active Discharge Patient 06/29 UNK Active RT RE-EVALUATION 06/28 1736 Complete RT: Reevaluation 06/28 173 Active INCENTIVE SPIROMETRY TRX CHG 06/28 UNK Complete AEROSOL CHG 06/28 UNK Complete OXYGEN 06/28 UNK Complete OXYGEN DAILY CHARGE 06/28 UNK Complete CONTIN. POS. AIRWAY PRESS. CHG 06/28 UNK Complete Nursing Misc 06/28 UNK Active Diagnostic Imaging: Viewed by Me: Radiology Read. Discussed w/RAD: Radiology Read. Radiology Impression: PATIENT: ESTUARDO PEREZ PRESENT AGE: 67 PATIENT ACCOUNT NO: [id number] : 49 LOCATION: [facility] ORDERING PHYSICIAN: Lissa Hare MD SERVICE DATE: 06/25/17 EXAM TYPE: RAD - XRY-PORTABLE CHEST XRAY EXAMINATION: CR PORTABLE CHEST CLINICAL INFORMATION: Bilateral rhonchi and hypoxia. Rule out pneumonia. COMPARISON: Several prior chest x-rays, most recent of which is dated 06/21/2017. TECHNIQUE: Portable AP semiupright view of the chest was obtained. FINDINGS: The cardiomediastinal silhouette is within normal limits in size. Mild ectasia and tortuosity of the aorta is again seen. Central pulmonary arteries appear enlarged There is persistent parenchymal opacity seen in the lung bases bilaterally, right greater than left, probably unchanged allowing for differences in technique. No significant pleural fluid seen. No pneumothorax. Bony structures grossly unremarkable. IMPRESSION: No significant change in bibasilar opacities, right greater than left, possibly due to chronic atelectasis or chronic infiltrate. DICTATED BY: Pawan VOGEL,Marissa Calix DATE/TIME DICTATED:06/25/171435 CONTROL OPERATOR FLOW COAT:PAULO DATE/TIME TRANSCRIBED:06/25/171435 Initial ED EKG: NSR, no ST T wave changes Departure Departure Disposition: HOME OR SELF CARE Condition: Stable Clinical Impression Primary Impression: Acute hypercapnic respiratory failure due to obstructive sleep apnea Referrals: Zach VOGEL,Dominguez Gray (PCP/Family) Departure Forms: Customer Survey General Discharge Information Prescriptions: Current Visit Scripts Azithromycin 1 TAB PO DAILY #1 TAB . Prednisone 1 TAB PO BID #30 TAB . Observation Note Spoke With: Toshia VOGEL,Tamiko Sanchez Physician Advisor Notified: KENNETH RUSH DO Place Patient In: Non-ED OBS Care Area Rationale for Observation: My rational for observation is as follows HYPERCAPNEA AND ALTERED MENTAL STATUS, IMPROVED WITH BIPAP. HAS POORLY FUNCTIONING BIPAP AT HOME. WILL REQUIRE PULMONARY CONSULT, IV SOLUMEDROL, AND ADJUSTMENT OF HOME BIPAP TO PREVENT READMISSION, WILL LIKELY IMPROVE IN 24-48 HOURS AND CAN BE DISCHARGED WITH HOME ISSUES ADDRESSED. Critical Care Note Critical Care Note Critical Care Time: 30-74 min
[2017-06-25 14:21] LABS: ABSOLUTE BASOPHIL COUNT 0 /CUMM (0.0-0.2); ABSOLUTE EOSINOPHIL COUNT 0.1 /CUMM (0.0-0.7); ABSOLUTE GRANULOCYTE CT 11.9 /CUMM (1.4-6.5); ABSOLUTE LYMPH COUNT 1.3 /CUMM (1.2-3.4); ABSOLUTE MONOCYTE COUNT 0.4 /CUMM (0.10-0.60); BASOPHIL % 0 % (0.0-2.0); EOSINOPHIL % 0.6 % (0-5); HEMATOCRIT 40.1 % (42-52); MEAN CORPUSCULAR HGB 29.3 PG (27.0-31.0); MEAN CORPUSCULAR VOLUME 91.3 FL (80.0-94.0); MEAN PLATELET VOLUME 8.4 FL (7.4-10.4); PLATELET COUNT 270 /CUMM (130-400); RBC DISTRIBUTION WIDTH 14.8 % (11.5-14.5); RED BLOOD CELL CT 4.39 /CUMM (4.70-6.10); WHITE BLOOD CELL COUNT 13.7 /CUMM (4.8-10.8)
--- NOTE | 2017-06-25 14:44 | RADIOLOGY REPORT ---
EXAMINATION: CR PORTABLE CHEST CLINICAL INFORMATION: Bilateral rhonchi and hypoxia. Rule out pneumonia. COMPARISON: Several prior chest x-rays, most recent of which is dated 06/21/2017. TECHNIQUE: Portable AP semiupright view of the chest was obtained. FINDINGS: The cardiomediastinal silhouette is within normal limits in size. Mild ectasia and tortuosity of the aorta is again seen. Central pulmonary arteries appear enlarged There is persistent parenchymal opacity seen in the lung bases bilaterally, right greater than left, probably unchanged allowing for differences in technique. No significant pleural fluid seen. No pneumothorax. Bony structures grossly unremarkable. IMPRESSION: No significant change in bibasilar opacities, right greater than left, possibly due to chronic atelectasis or chronic infiltrate.
--- NOTE | 2017-06-25 15:38 | Cons- Pulmonary ---
General Information and HPI Consulting Request Date of Consult: 06/25/17 Requested By: Dr. Hare Reason for Consult: hypercarbic respiratory failure Source of Information: patient Exam Limitations: no limitations History of Present Illness: 67 year old man. Recent admission. Hx of COPD on 2LNC home o2. Paraplegia hx after spinal abscess/mrsa. A.fib on Eliquis. Hx of IVC filter. JELANI on BIPAP. Presented for worsened dyspnea, denies travel/sick contacts. Recent admission. Dyspnea, cough non-productive, no cp, no palpitations, no n/v/d/c. No BLAIR. CXR - no changes in bibasilar opacifications wbc 13.7 bnp 1600 abg - 7.3/83/278 on PAP tx. Allergies/Medications Allergies: Coded Allergies: heparin (Intermediate, SWELLING, RASH 03/07/17) vancomycin (Intermediate, HIVES, SKIN CRACKES, TURNS RED, SWELLS AND PEELS 03/07) warfarin (From COUMADIN) (Intermediate, RASH 03/07/17) Home Med List: Acetaminophen (Tylenol Arthritis) 650 MG TABLET.ER 1 TAB PO Q6-PRN PRN PAIN ( Reported) Albuterol Sulfate (Ventolin Hfa) 90 MCG HFA.AER.AD 2 PUF INH AD PRN COPD ( Reported) Apixaban (Eliquis) 5 MG TABLET 5 MG PO BID atrial fibrillation Ascorbate Calcium (Vitamin C) 500 MG TABLET 1 TAB PO BID SUPPLEMENT (Reported ) Atomoxetine HCl (Strattera) 40 MG CAPSULE 1 CAP PO QAM MENTAL HEALTH ( Reported) Baclofen 20 MG TABLET 1 TAB PO BID MUSCLE RELAXER (Reported) Bisacodyl (Dulcolax) 10 MG SUPP.RECT 1 SUP RC Q48 GI (Reported) Budesonide/Formoterol Fumarate (Symbicort 80-4.5 Mcg Inhaler) 80 MCG-4.5 MCG/ ACTUATION HFA.AER.AD 2 PUF INH BID COPD (Reported) Docusate Sodium (Stool Softener) 100 MG CAPSULE 1 CAP PO DAILY STOOL SOFTENER (Reported) Doxycycline Hyclate 100 MG CAPSULE 1 CAP PO BID infection (Reported) Evolocumab (Repatha Sureclick) 140 MG/ML PEN.INJCTR 1 ML SC Q 2 WEEKS CHOLESTEROL (Reported) Furosemide 20 MG TABLET 3 TAB PO Q48 DIURETIC (Reported) Gabapentin 600 MG TABLET 1 TAB PO TID NEUROPATHY (Reported) Guaifenesin (Mucinex) 600 MG TAB.ER.12H 1 TAB PO BID CONGESTION (Reported) Lactobacillus Acidophilus (Acidophilus) 1 EACH CAPSULE 1 CAP PO BID PROBIOTIC (Reported) Lorazepam 1 MG TABLET 1 TAB PO BID ANXIETY (Reported) Magnesium Oxide (Magnesium) 400 MG CAPSULE 1 CAP PO 0600 SUPPLEMENT (Reported ) Metoprolol Succ XL (Toprol XL) 25 MG TAB 1 TAB PO DAILY HEART (Reported) Montelukast Sodium (Singulair) 10 MG TABLET 1 TAB PO DAILY ALLERGIES ( Reported) Multivitamin (Daily Value) 1 EACH TABLET 1 TAB PO DAILY VITAMIN SUPPORT ( Reported) Nortriptyline HCl 10 MG CAPSULE 1 CAP PO DAILY UNKNOWN (Reported) Omeprazole 20 MG CAPSULE.DR 1 CAP PO DAILY ACID REFLUX (Reported) Oseltamivir Phosphate (Tamiflu) 75 MG CAPSULE 1 CAP PO DAILY FLU PPX . Oxycodone HCl/Acetaminophen (Oxycodone-Acetaminophen 5-325) 5 MG-325 MG TABLET 1 TAB PO Q4H PRN PAIN (Reported) Potassium Chloride 20 MEQ TAB.ER.PRT 1 TAB PO DAILY SUPPLEMENT (Reported) Prednisone 10 MG TABLET 1 TAB PO SEE ADMIN CRITERIA COPD 50 MG X 3 DAYS, 40 MG X 2 DAYS, 30 MG X2 DAYS, 20MG X 2 DAYS, 10 MG X1 DAY,THEN stop.. Rifampin (Rifadin) 300 MG CAPSULE 300 MG PO BID MRSA (Reported) Rosuvastatin Calcium (Crestor) 5 MG TABLET 1 TAB PO DAILY CHOLESTEROL ( Reported) Sotalol (Betapace) 80 MG TABLET 80 MG PO BID AARYTHMIAS Tiotropium [place] (Spiriva) 18 MCG CAP.W.DEV 1 CAP INH DAILY BREATHING PROBLEMS (Reported) Trazodone HCl 50 MG TABLET 1 TAB PO QPM SLEEP (Reported) Current Medications: Current Medications Sig/Danni Start time Last Medication Dose Route Stop Time Status Admin Methylprednisolone 0 .STK-MED ONE 06/25 1452 DC .ROUTE Methylprednisolone 125 MG ONCE ONE 06/25 1345 DC 06/25 IV 06/25 1346 1448 Review of Systems Comments 18 point review of systems was performed and reviewed. Please see pertinent positives and pertinent negatives in the HPI. Otherwise ROS is negative. 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 Ambulation: wheelchair IADLs Independent: shopping, housework, finances, food prep, telephone, transportation , medication admin. Exam & Diagnostic Data Last 24 Hrs of Vital Signs/I&O Vital Signs Date Time Temp Pulse Resp B/P B/P Pulse O2 O2 Flow FiO2 Mean Ox Delivery Rate 06/25 1424 97.6 76 18 159/69 97 BIPAP 50% 06/25 1250 97.5 92 15 174/84 93 CPAP Physical Exam Other Physical Findings: Generally - Awake, on bipap Head and neck - ncat Cardiovascular - S1, S2 Lungs -bilateral rhonchi Abdomen - Bowel sounds positive, soft, non-tender Extremities - without edema Last 48 Hrs of Labs/Bryan: Laboratory Tests 06/25/17 1335: Anion Gap 12, Estimated GFR > 60, BUN/Creatinine Ratio 32.5 H, Glucose 129 H, Calcium 9.3, Total Bilirubin 0.4, AST 44, ALT 62, Alkaline Phosphatase 86, Troponin I 0.01, Byg-G-Msupcjqwzci Pept 1600 H, Total Protein 7.0, Albumin 3.6, Globulin 3.4, Albumin/Globulin Ratio 1.1, CBC w Diff NO MAN DIFF REQ, RBC 4.39 L, MCV 91.3, MCH 29.3, MCHC 32.0 L, RDW 14.8 H, MPV 8.4, Gran % 87.0 H, Lymphocytes % 9.4 L, Monocytes % 3.0, Eosinophils % 0.6, Basophils % 0, Absolute Granulocytes 11.9 H, Absolute Lymphocytes 1.3, Absolute Monocytes 0.4, Absolute Eosinophils 0.1, Absolute Basophils 0 06/25/17 1300: pH 7.30 *L, pCO2 83 *H, pO2 278 H, HCO3 40 H, ABG O2 Sat (Measured) 98.0, Carboxyhemoglobin 1.1 L, O2 Concentration % 15L, O2 Delivery Method AUTOPAP, Phlebotomy Draw Site RIGHT RADIAL Microbiology 06/25 1330 NASOPHARYN: Influenza Virus A & B Rapid Smear - COMP Assessment/Plan Impression/Plan: Impression 67 year old man * acute on chronic hypercarbic respiratory failure - issues with home bipap * acute COPD exacerbation Plan -solumedrol 40mg iv q8h -cont bipap -recheck abg -trc/nebs -spo2 goal >92% -incentive spirometry DVT prophylaxis at all times may require STR Consult Acknowledgment - Thank you for your consult request.
--- NOTE | 2017-06-25 16:56 | PN- Att Addend ---
Attending Addendum Attending Brief Note This is a fairly complex 67-year-old male with a history of paraplegia secondary to spinal abscess with MRSA on chronic treatment with rifampin and doxycycline. He also has a history of chronic respiratory failure with COPD on 2 L of oxygen and has had multiple admissions in the past few months with hypercapnic respiratory failure and issues with his BiPAP machine at home. I'm not totally sure if the BiPAP is nonfunctioning/malfunctioning versus he is not compliant but there is concern about that. He was recently here and sent home on June 23 after treatment for the same. He returns with acute hypercapnic respiratory failure on chronic hypercapnic respiratory failure as evidenced by a PCO2 of 83. He also has underlying A. fib on Eliquis, he takes Lasix 60 every 48hrs and has a chronic Orellana for neurogenic bladder. At this point will bring him into [facility], he is here as observation and will treat him with IV steroids. Will need to make sure that his BiPAP machine gets fixed before any discharge plans are made. Will need to repeat the gas to follow-up on the hypercapnia. We'll continue his other chronic medication.
--- NOTE | 2017-06-25 17:12 | History & Physical ---
See Addendum General Information and HPI Source of Information: patient Exam Limitations: unable to give history, not alert/orientated History of Present Illness: Mr. Park, is a 67-year-old gentleman with significant past medical history of paroxysmal atrial fibrillation, paraplegia secondary to a T6-T7 MRSA epidural spinal abscess [on chronic suppressive antibiotic therapy] with neurogenic bladder status post chronic Orellana, coronary artery disease, and COPD on 2 L of home oxygen, who was recently discharged from the hospital for COPD exacerbation on 06/23/2017. He presents to the hospital emergency department with similar complaints. He is on BiPAP at the time of evaluation, and as a difficult time answering questions, therefore the interval history was obtained from the ED providers. Per the record, the patient was discharged to complete a course of Levaquin and prednisone taper. He was also instructed to use his BiPAP. Unfortunately, his BiPAP was malfunctioning, and the patient was brought in by the ambulance severely dyspneic and somnolence. In the emergency department, his vitals: temperature 97.5, pulse 92, respiratory rate 15, blood pressure 174/84 saturating 93% on 50% BiPAP. His chest x-ray revealed bibasilar opacities, right greater than left. This was relatively unchanged from previous examination last radiograph. Allergies/Medications Allergies: Coded Allergies: heparin (Intermediate, SWELLING, RASH 03/07/17) vancomycin (Intermediate, HIVES, SKIN CRACKES, TURNS RED, SWELLS AND PEELS 03/07) warfarin (From COUMADIN) (Intermediate, RASH 03/07/17) Home Med list Acetaminophen (Tylenol Arthritis) 650 MG TABLET.ER 1 TAB PO Q6-PRN PRN PAIN ( Reported) Albuterol Sulfate (Ventolin Hfa) 90 MCG HFA.AER.AD 2 PUF INH AD PRN COPD ( Reported) Apixaban (Eliquis) 5 MG TABLET 5 MG PO BID atrial fibrillation Ascorbate Calcium (Vitamin C) 500 MG TABLET 1 TAB PO BID SUPPLEMENT (Reported ) Atomoxetine HCl (Strattera) 40 MG CAPSULE 1 CAP PO QAM MENTAL HEALTH ( Reported) Baclofen 20 MG TABLET 1 TAB PO BID MUSCLE RELAXER (Reported) Bisacodyl (Dulcolax) 10 MG SUPP.RECT 1 SUP RC Q48 GI (Reported) Budesonide/Formoterol Fumarate (Symbicort 80-4.5 Mcg Inhaler) 80 MCG-4.5 MCG/ ACTUATION HFA.AER.AD 2 PUF INH BID COPD (Reported) Docusate Sodium (Stool Softener) 100 MG CAPSULE 1 CAP PO DAILY STOOL SOFTENER (Reported) Doxycycline Hyclate 100 MG CAPSULE 1 CAP PO BID infection (Reported) Evolocumab (Repatha Sureclick) 140 MG/ML PEN.INJCTR 1 ML SC Q 2 WEEKS CHOLESTEROL (Reported) Furosemide 20 MG TABLET 3 TAB PO Q48 DIURETIC (Reported) Gabapentin 600 MG TABLET 1 TAB PO TID NEUROPATHY (Reported) Guaifenesin (Mucinex) 600 MG TAB.ER.12H 1 TAB PO BID CONGESTION (Reported) Lactobacillus Acidophilus (Acidophilus) 1 EACH CAPSULE 1 CAP PO BID PROBIOTIC (Reported) Lorazepam 1 MG TABLET 1 TAB PO BID ANXIETY (Reported) Magnesium Oxide (Magnesium) 400 MG CAPSULE 1 CAP PO 0600 SUPPLEMENT (Reported ) Metoprolol Succ XL (Toprol XL) 25 MG TAB 1 TAB PO DAILY HEART (Reported) Montelukast Sodium (Singulair) 10 MG TABLET 1 TAB PO DAILY ALLERGIES ( Reported) Multivitamin (Daily Value) 1 EACH TABLET 1 TAB PO DAILY VITAMIN SUPPORT ( Reported) Nortriptyline HCl 10 MG CAPSULE 1 CAP PO DAILY UNKNOWN (Reported) Omeprazole 20 MG CAPSULE.DR 1 CAP PO DAILY ACID REFLUX (Reported) Oxycodone HCl/Acetaminophen (Oxycodone-Acetaminophen 5-325) 5 MG-325 MG TABLET 1 TAB PO Q4H PRN PAIN (Reported) Potassium Chloride 20 MEQ TAB.ER.PRT 1 TAB PO DAILY SUPPLEMENT (Reported) Rifampin (Rifadin) 300 MG CAPSULE 300 MG PO BID MRSA (Reported) Rosuvastatin Calcium (Crestor) 5 MG TABLET 1 TAB PO DAILY CHOLESTEROL ( Reported) Sotalol (Betapace) 80 MG TABLET 80 MG PO BID AARYTHMIAS Tiotropium [place] (Spiriva) 18 MCG CAP.W.DEV 1 CAP INH DAILY BREATHING PROBLEMS (Reported) Trazodone HCl 50 MG TABLET 1 TAB PO QPM SLEEP (Reported) Past History Travel History Traveled to [place] past 21 day No Medical History Neurological: C6-7 ABSCESS PARAPLEGIA EENT: NONE Cardiovascular: AFIB, hypertension, hyperlipidemia, myocardial infarction Respiratory: asthma, COPD, OXYGEN DEPEND 2L Gastrointestinal: NONE Hepatic: NONE Renal: neurogenic bladder Musculoskeletal: PARAPLEGIA R/T ABSCESS Psychiatric: NONE Endocrine: NONE Blood Disorders: NONE Cancer(s): NONE 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 Ambulation: wheelchair IADLs Independent: shopping, housework, finances, food prep, telephone, transportation , medication admin. Review of Systems Review of Systems Constitutional: Reports: see HPI. Exam & Diagnostic Data Last 24 Hrs of Vital Signs/I&O Vital Signs Date Time Temp Pulse Resp B/P B/P Pulse O2 O2 Flow FiO2 Mean Ox Delivery Rate 06/25 1845 98.8 84 22 124/53 97 BIPAP 50% 06/25 1843 BIPAP 50% 06/25 1627 97.9 84 30 152/72 98 BIPAP 50% 06/25 1616 96 06/25 1601 88 98 / 1424 97.6 76 18 159/69 97 BIPAP 50% 06/25 1310 93 CPAP 06/25 1250 97.5 92 15 174/84 93 CPAP Diagnostic Data EKG Results EKG revealed sinus rhythm at 75 bpm with a normal axis. No significant ST-T changes. CXR Results SERVICE DATE: 06/25/17-130 EXAM TYPE: RAD - XRY-PORTABLE CHEST XRAY EXAMINATION: CR PORTABLE CHEST CLINICAL INFORMATION: Bilateral rhonchi and hypoxia. Rule out pneumonia. COMPARISON: Several prior chest x-rays, most recent of which is dated 06/21/2017. TECHNIQUE: Portable AP semiupright view of the chest was obtained. FINDINGS: The cardiomediastinal silhouette is within normal limits in size. Mild ectasia and tortuosity of the aorta is again seen. Central pulmonary arteries appear enlarged. There is persistent parenchymal opacity seen in the lung bases bilaterally, right greater than left, probably unchanged allowing for differences in technique. No significant pleural fluid seen. No pneumothorax. Bony structures grossly unremarkable. IMPRESSION: No significant change in bibasilar opacities, right greater than left, possibly due to chronic atelectasis or chronic infiltrate. Assessment/Plan Assessment: Mr. Park, is a 67-year-old gentleman with significant past medical history of paroxysmal atrial fibrillation, paraplegia secondary to a T6-T7 MRSA epidural spinal abscess [on chronic suppressive antibiotic therapy] with neurogenic bladder status post chronic Orellana, coronary artery disease, and COPD on 2 L of home oxygen, who was recently discharged from the hospital for COPD exacerbation on 06/23/2017. He presents to the hospital emergency department with similar complaints. His chest x-ray revealed bibasilar opacities, right greater than left. This was relatively unchanged from previous examination last radiograph. His ABG revealed hypercarbia and acidosis, 7.3/83/298/40 on 50% O2 via BiPAP. CBC revealed white blood cell count 13.7, H&H 12.8/40.1. Electrolytes were unremarkable however bicarbonate was 40. BNP 1600. Flu culture negative. Repeat arterial blood gas revealed 7.34/79/97/42 on 50% oxygen via BiPAP [13/11] Problem list/Assessment and Plan Hypercarbic Hypoxic respiratory failure * Etiology: ? Noncompliance versus broken BiPAP * We will treat for acute exacerbation of COPD * Pulmonary consult appreciated * Solu-Medrol 40 mg every 8 hours started * We will also start Zithromax 500 mg every day * Total respiratory care/nebulizer and BiPAP as tolerated * Repeat ABG at 9 PM. Chronic medical problems * Hx of: CAD, COPD, JELANI, A-fib, HLD, hx of epidural abscess w subsequent paralegia and neurogenic bladder * Continue Eliquis 5 mg twice a day for A. fib * Continue sotalol 80 mg * Continue gabapentin 600 mg every 8 * Continue prophylactic antibiotics rifampin 300 mg twice a day and doxycycline 100 mg twice a day DVT prophylaxis Eliquis Heart healthy Diet DNR/DNI Pain path as ordered As Ranked By This Provider Problem List: 1. Acute hypercapnic respiratory failure due to obstructive sleep apnea 2. Difficulty with BiPAP use 3. Paroxysmal atrial fibrillation Core Measures/Misc (02/06) Acute Coronary Syndrome ACS Diagnosis: No Congestive Heart Failure Congestive Heart Failure Diagnosis No Cerebrovascular Accident CVA/TIA Diagnosis: No VTE (View Protocol) VTE Risk Factors Age>40 No Mechanical VTE Prophylaxis d/t N/A MechProphylax Ordered No VTE Pharm Prophylaxis d/t NA PharmProphylax ordered Sepsis (View protocol) Sepsis Present: No
[2017-06-25 21:00] VITALS: BP 114/70
[2017-06-26 07:11] VITALS: BP 110/70
--- NOTE | 2017-06-26 08:50 | PN- Housestaff ---
EstradaSary 06/26/17 0850: Subjective Follow-up For: #Hypercarbic Hypoxi Resp Failure #Chronic medical conditions of CAD, COPD, JELANI, A-fib, HLD, hx of epidural abscess w subsequent paralegia and neurogenic bladder Subjective: No overnight event. Review of Systems Constitutional: Reports: see HPI. Objective Last 24 Hrs of Vital Signs/I&O Vital Signs Date Time Temp Pulse Resp B/P B/P Pulse O2 O2 Flow FiO2 Mean Ox Delivery Rate 06/26 0907 77 140/78 06/26 0838 94 Nasal 2.0L Cannula 06/26 0711 97.7 77 20 110/70 96 06/26 0621 77 97 06/26 0226 75 98 06/26 0000 BIPAP 06/25 2100 97.8 94 20 114/70 99 BIPAP 06/25 2010 98.0 83 22 143/67 97 BIPAP 06/25 1845 98.8 84 22 124/53 97 BIPAP 50% 06/25 1843 BIPAP 50% 06/25 1627 97.9 84 30 152/72 98 BIPAP 50% 06/25 1616 96 / 1601 88 98 / 1424 97.6 76 18 159/69 97 BIPAP 50% 06/25 1310 93 CPAP 06/25 1250 97.5 92 15 174/84 93 CPAP Intake & Output 06/26 1600 04 0800 06/26 0000 Intake Total 360 240 Output Total 150 250 Balance 210 -10 Intake, Oral 360 240 Output, Urine 150 250 Patient 104.128 kg Weight Physical Exam General Appearance: Alert, Oriented X3, Cooperative, On 2LNC Cardiovascular: Regular Rate Lungs: Normal Air Movement, Dminished breath sound BL mid-lower lungs Current Medications: Current Medications Sig/Danni Start time Last Medication Dose Route Stop Time Status Admin Acetaminophen 650 MG Q6P PRN 06/25 1830 AC PO Albuterol Sulfate 3 ML EVERY 4 HRS/AWAKE 06/25 2000 AC 06/26 INH 1212 Albuterol Sulfate 2 PUF Q4P PRN 06/25 1815 AC INH Apixaban 5 MG BID 06/25 2200 AC 06/26 PO 0906 Ascorbic Acid 500 MG BID 06/25 2200 AC 06/26 PO 0906 Atorvastatin Calcium 20 MG 1700 06/26 1700 AC PO Azithromycin 500 MG DAILY 06/26 1000 AC 06/26 Dextrose/Water 250 ML IV 0914 Baclofen 20 MG BID 06/25 2200 AC 06/26 PO 0906 Bisacodyl 10 MG Q48 06/27 1000 AC TN Budesonide/ 2 PUF BID 06/25 2200 AC 06/26 Formoterol Fumarate INH 0909 Docusate Sodium 100 MG DAILY 06/26 1000 AC 06/26 PO 0906 Doxycycline Hyclate 100 MG BID 06/25 2200 AC 06/26 PO 06/26 2159 0906 Furosemide 60 MG Q48 06/27 1000 AC PO Gabapentin 600 MG Q8 06/25 2200 AC 06/26 PO 0652 Guaifenesin 600 MG BID 06/25 2200 AC 06/26 PO 0906 Ibuprofen 600 MG Q6P PRN 06/25 1830 DC PO Lactobacillus 1 CAP BID 06/25 2200 AC 06/26 Acidophilus PO 0906 Lorazepam 1 MG BID 06/25 2200 AC 06/26 PO 0913 Magnesium Oxide 400 MG DAILY 06/26 1000 DC PO Methylprednisolone 40 MG Q8 06/25 2200 AC 06/26 IV 0652 Methylprednisolone 0 .STK-MED ONE 06/25 1452 DC .ROUTE Methylprednisolone 125 MG ONCE ONE 06/25 1345 DC 02/03 IV 06/25 1346 1448 Metoprolol Succinate 25 MG DAILY 06/25 1814 AC 06/26 PO 0907 Montelukast Sodium 10 MG DAILY 06/26 1000 AC 06/26 PO 0906 Multivitamins 1 TAB DAILY 06/25 1812 AC 06/26 Therapeutic PO 0907 Non-Formulary 0 SEE ADMIN CRITERIA 06/25 1830 DC Medication ANY Non-Formulary 0 SEE ADMIN CRITERIA 06/25 1815 DC Medication ANY Nortriptyline HCl 10 MG DAILY 06/26 1000 AC 06/26 PO 0906 Omeprazole 20 MG DAILY 06/26 1000 AC 06/26 PO 0906 Oxycodone/ 1 TAB Q6P PRN 06/25 1830 AC Acetaminophen PO Potassium Chloride 20 MEQ DAILY 06/26 1000 AC 06/26 PO 0906 Rifampin 300 MG BID 06/25 2200 AC 06/26 PO 0906 Sotalol HCl 80 MG BID 06/25 2200 AC 06/26 PO 0906 Tiotropium [place] 1 PUF DAILY 06/26 1000 AC 06/26 INH 0907 Trazodone HCl 50 MG QPM 02/03 2200 AC 06/25 PO 2231 Last 24 Hrs of Lab/Bryan Results Last 24 Hrs of Labs/Mics: Laboratory Tests 06/26/17 1120: Anion Gap 7, Estimated GFR > 60, BUN/Creatinine Ratio 33.3 H 06/26/17 1004: Anion Gap 9, Estimated GFR > 60, BUN/Creatinine Ratio 43.3 H, CBC w Diff NO MAN DIFF REQ, RBC 3.83 L, MCV 91.9, MCH 29.6, MCHC 32.2 L, RDW 15.0 H, MPV 8.3, Gran % 82.8 H, Lymphocytes % 12.8 L, Monocytes % 4.1, Eosinophils % 0.1, Basophils % 0.2, Absolute Granulocytes 10.7 H, Absolute Lymphocytes 1.7, Absolute Monocytes 0.5, Absolute Eosinophils 0, Absolute Basophils 0 06/25/17 1700: pH 7.34 L, pCO2 79 *H, pO2 97, HCO3 42 H, ABG O2 Sat (Measured) 96.0, Carboxyhemoglobin 1.3 L, O2 Concentration % 50%, Respiration Rate 24, O2 Delivery Method BIPAP, Vent Mode ST, Expiratory Pressure 6, Inspiratory Pressure 24, Phlebotomy Draw Site LEFT R 06/25/17 1335: Anion Gap 12, Estimated GFR > 60, BUN/Creatinine Ratio 32.5 H, Glucose 129 H, Calcium 9.3, Total Bilirubin 0.4, AST 44, ALT 62, Alkaline Phosphatase 86, Troponin I 0.01, [id number]-[id number]-Pvslmnlvqnk Pept 1600 H, Total Protein 7.0, Albumin 3.6, Globulin 3.4, Albumin/Globulin Ratio 1.1, CBC w Diff NO MAN DIFF REQ, RBC 4.39 L, MCV 91.3, MCH 29.3, MCHC 32.0 L, RDW 14.8 H, MPV 8.4, Gran % 87.0 H, Lymphocytes % 9.4 L, Monocytes % 3.0, Eosinophils % 0.6, Basophils % 0, Absolute Granulocytes 11.9 H, Absolute Lymphocytes 1.3, Absolute Monocytes 0.4, Absolute Eosinophils 0.1, Absolute Basophils 0 06/25/17 1300: pH 7.30 *L, pCO2 83 *H, pO2 278 H, HCO3 40 H, ABG O2 Sat (Measured) 98.0, Carboxyhemoglobin 1.1 L, O2 Concentration % 15L, O2 Delivery Method AUTOPAP, Phlebotomy Draw Site RIGHT RADIAL Microbiology 06/25 1330 NASOPHARYN: Influenza Virus A & B Rapid Smear - COMP Assessment/Plan Assessment: Mr. Park, is a 67-year-old gentleman with significant past medical history of paroxysmal atrial fibrillation, paraplegia secondary to a T6-T7 MRSA epidural spinal abscess [on chronic suppressive antibiotic therapy] with neurogenic bladder status post chronic Orellana, coronary artery disease, and COPD on 2 L of home oxygen, who was recently discharged from the hospital for COPD exacerbation on 06/23/2017. He presents to the hospital emergency department with similar complaints. His chest x-ray revealed bibasilar opacities, right greater than left. This was relatively unchanged from previous examination last radiograph. His ABG revealed hypercarbia and acidosis, 7.3/83/298/40 on 50% O2 via BiPAP. CBC revealed white blood cell count 13.7, H&H 12.8/40.1. Electrolytes were unremarkable however bicarbonate was 40. BNP 1600. Flu culture negative. Repeat arterial blood gas revealed 7.34/79/97/42 on 50% oxygen via BiPAP [13/11] Problem list/Assessment and Plan Hypercarbic Hypoxic respiratory failure * Etiology: ? Noncompliance versus broken BiPAP * Continue Solu-Medrol 40 mg every 8 hours started pending Pulm consult. * Continue Zithromax 500 mg qd x 5d * Total respiratory care/nebulizer and BiPAP as tolerated * DC to STR for BiPAP incompliance/broken machine. Chronic medical problems * Hx of: CAD, COPD, JELANI, A-fib, HLD, hx of epidural abscess w subsequent paralegia and neurogenic bladder * Continue Eliquis 5 mg twice a day for A. fib * Continue sotalol 80 mg * Continue gabapentin 600 mg every 8 * Continue prophylactic antibiotics rifampin 300 mg twice a day and doxycycline 100 mg twice a day DVT prophylaxis Eliquis Heart healthy Diet DNR/DNI Pain path as ordered Problem List: 1. Difficulty with BiPAP use 2. BiPAP (biphasic positive airway pressure) dependence 3. Hypercapnic respiratory failure Pain Ratin Pain Location: NA Pain Goal: Remain pain free Pain Plan: see AP Tomorrow's Labs & Rationales: CBC/BEP Toshia VOGEL,Tamiko 06/26/17 1214: Attending MD Review Statement Attending Statement Attending MD Statement: examined this patient, discuss w/resident/PA/FLOAT OPERATOR, agreed w/resident/PA/FLOAT OPERATOR, reviewed EMR data (avail), discussed with nursing, reviewed images Attending Assessment/Plan: 67-year-old male chronic hypercapnic respiratory failure with underlying COPD and issues with his BiPAP machine at home, is now in observation status for acute on chronic hypercapnic respiratory failure. We have him on IV steroids with azithromycin for pulmonary. He is on chronic suppressive treatment with rifampin and Doxy for an MRSA abscess ( paraplegic). He remains on Eliquis and I'll talk to case management because I think he would benefit from placement and he appears agreeable.
[2017-06-26 10:30] LABS: ABSOLUTE BASOPHIL COUNT 0 /CUMM (0.0-0.2); ABSOLUTE EOSINOPHIL COUNT 0 /CUMM (0.0-0.7); ABSOLUTE GRANULOCYTE CT 10.7 /CUMM (1.4-6.5); ABSOLUTE LYMPH COUNT 1.7 /CUMM (1.2-3.4); ABSOLUTE MONOCYTE COUNT 0.5 /CUMM (0.10-0.60); BASOPHIL % 0.2 % (0.0-2.0); EOSINOPHIL % 0.1 % (0-5); GRANULOCYTE % 82.8 % (42.2-75.2); HEMATOCRIT 35.3 % (42-52); MEAN CORPUSCULAR HGB 29.6 PG (27.0-31.0); MEAN CORPUSCULAR HGB CONC 32.2 G/DL (33.0-37.0); MEAN CORPUSCULAR VOLUME 91.9 FL (80.0-94.0); MEAN PLATELET VOLUME 8.3 FL (7.4-10.4); PLATELET COUNT 241 /CUMM (130-400); RED BLOOD CELL CT 3.83 /CUMM (4.70-6.10); WHITE BLOOD CELL COUNT 12.9 /CUMM (4.8-10.8)
--- NOTE | 2017-06-26 13:35 | PN- Pulmonary ---
Subjective HPI/Critical Care Issues: Patient seen and examined this morning. He appears to be doing much better and he feels better as well. Objective Current Medications: Current Medications Sig/Danni Start time Last Medication Dose Route Stop Time Status Admin Acetaminophen 650 MG Q6P PRN 06/25 1830 AC PO Albuterol Sulfate 3 ML EVERY 4 HRS/AWAKE 06/25 2000 AC 06/26 INH 1212 Albuterol Sulfate 2 PUF Q4P PRN 06/25 1815 AC INH Apixaban 5 MG BID 06/25 2200 AC 06/26 PO 0906 Ascorbic Acid 500 MG BID 06/25 2200 AC 06/26 PO 0906 Atorvastatin Calcium 20 MG 1700 06/26 1700 AC PO Azithromycin 500 MG DAILY 06/26 1000 AC 06/26 Dextrose/Water 250 ML IV 0914 Baclofen 20 MG BID 06/25 2200 AC 06/26 PO 0906 Bisacodyl 10 MG Q48 06/27 1000 AC MD Budesonide/ 2 PUF BID 06/25 2200 AC 06/26 Formoterol Fumarate INH 0909 Docusate Sodium 100 MG DAILY 06/26 1000 AC 06/26 PO 0906 Doxycycline Hyclate 100 MG BID 06/25 2200 AC 06/26 PO 06/26 2159 0906 Furosemide 60 MG Q48 06/27 1000 AC PO Gabapentin 600 MG Q8 06/25 2200 AC 06/26 PO 0652 Guaifenesin 600 MG BID 06/25 2200 AC 06/26 PO 0906 Ibuprofen 600 MG Q6P PRN 06/25 1830 DC PO Lactobacillus 1 CAP BID 06/25 2200 AC 06/26 Acidophilus PO 0906 Lorazepam 1 MG BID 06/25 2200 AC 06/26 PO 0913 Magnesium Oxide 400 MG DAILY 06/26 1000 DC PO Methylprednisolone 40 MG Q8 06/25 2200 AC 06/26 IV 0652 Methylprednisolone 0 .STK-MED ONE 06/25 1452 DC .ROUTE Methylprednisolone 125 MG ONCE ONE 06/25 1345 DC 02 IV 06/25 1346 1448 Metoprolol Succinate 25 MG DAILY 06/25 1814 AC 06/26 PO 0907 Montelukast Sodium 10 MG DAILY 06/26 1000 AC 06/26 PO 0906 Multivitamins 1 TAB DAILY 06/25 1812 AC 06/26 Therapeutic PO 0907 Non-Formulary 0 SEE ADMIN CRITERIA 06/25 1830 DC Medication ANY Non-Formulary 0 SEE ADMIN CRITERIA 06/25 181 DC Medication ANY Nortriptyline HCl 10 MG DAILY 06/26 1000 AC 06/26 PO 0906 Omeprazole 20 MG DAILY 06/26 1000 AC 06/26 PO 0906 Oxycodone/ 1 TAB Q6P PRN 06/25 1830 AC Acetaminophen PO Potassium Chloride 20 MEQ DAILY 06/26 1000 AC 06/26 PO 0906 Rifampin 300 MG BID 06/25 2200 AC 06/26 PO 0906 Sotalol HCl 80 MG BID 06/25 2200 AC 06/26 PO 0906 Tiotropium [place] 1 PUF DAILY 06/26 1000 AC 06/26 INH 0907 Trazodone HCl 50 MG QPM 06/25 2200 AC 06/25 PO 2231 Vital Signs & I&O Last 24 Hrs of Vitals and I&O: Vital Signs Date Time Temp Pulse Resp B/P B/P Pulse O2 O2 Flow FiO2 Mean Ox Delivery Rate 06/26 09 77 140/78 06/26 0838 94 Nasal 2.0L Cannula 06/26 07 97.7 77 20 110/70 96 06/26 0621 77 97 06/26 0226 75 98 06/26 0000 BIPAP 06/25 2099 97.8 94 20 114/70 99 BIPAP 06/25 2010 98.0 83 22 143/67 97 BIPAP 06/25 1845 98.8 84 22 124/53 97 BIPAP 50% 06/25 1843 BIPAP 50% 06/25 1627 97.9 84 30 152/72 98 BIPAP 50% 06/25 1616 96 06/25 1601 88 98 06/25 1424 97.6 76 18 159/69 97 BIPAP 50% Intake & Output 06/26 1600 06/26 0800 06/26 0000 Intake Total 360 240 Output Total 150 250 Balance 210 -10 Intake, Oral 360 240 Output, Urine 150 250 Patient 230 lb Weight Exam Other Physical Findings: Generally - Awake Head and neck - ncat Cardiovascular - S1, S2 Lungs -bilateral rhonchi Abdomen - Bowel sounds positive, soft, non-tender Extremities - without edema Results Last 24 Hrs of Lab Results: Laboratory Tests 06/26/17 1120: Anion Gap 7, Estimated GFR > 60, BUN/Creatinine Ratio 33.3 H 06/26/17 1004: Anion Gap 9, Estimated GFR > 60, BUN/Creatinine Ratio 43.3 H, CBC w Diff NO MAN DIFF REQ, RBC 3.83 L, MCV 91.9, MCH 29.6, MCHC 32.2 L, RDW 15.0 H, MPV 8.3, Gran % 82.8 H, Lymphocytes % 12.8 L, Monocytes % 4.1, Eosinophils % 0.1, Basophils % 0.2, Absolute Granulocytes 10.7 H, Absolute Lymphocytes 1.7, Absolute Monocytes 0.5, Absolute Eosinophils 0, Absolute Basophils 0 06/25/17 1700: pH 7.34 L, pCO2 79 *H, pO2 97, HCO3 42 H, ABG O2 Sat (Measured) 96.0, Carboxyhemoglobin 1.3 L, O2 Concentration % 50%, Respiration Rate 24, O2 Delivery Method BIPAP, Vent Mode ST, Expiratory Pressure 6, Inspiratory Pressure 24, Phlebotomy Draw Site LEFT R 06/25/17 1335: Anion Gap 12, Estimated GFR > 60, BUN/Creatinine Ratio 32.5 H, Glucose 129 H, Calcium 9.3, Total Bilirubin 0.4, AST 44, ALT 62, Alkaline Phosphatase 86, Troponin I 0.01, Nvb-X-Kudhfnchhce Pept 1600 H, Total Protein 7.0, Albumin 3.6, Globulin 3.4, Albumin/Globulin Ratio 1.1, CBC w Diff NO MAN DIFF REQ, RBC 4.39 L, MCV 91.3, MCH 29.3, MCHC 32.0 L, RDW 14.8 H, MPV 8.4, Gran % 87.0 H, Lymphocytes % 9.4 L, Monocytes % 3.0, Eosinophils % 0.6, Basophils % 0, Absolute Granulocytes 11.9 H, Absolute Lymphocytes 1.3, Absolute Monocytes 0.4, Absolute Eosinophils 0.1, Absolute Basophils 0 Impression/Plan Impression/Plan Impression/Plan: Impression 67 year old man * acute on chronic hypercarbic respiratory failure - issues with home bipap * acute COPD exacerbation Plan -REDUCE solumedrol 40mg iv every 12 hours -cont bipap -clinically no need to repeat abg today -trc/nebs -spo2 goal >92% -incentive spirometry DVT prophylaxis at all times may require STR - pt agreeable
[2017-06-26 14:25] VITALS: BP 110/68
[2017-06-26 22:27] VITALS: BP 116/70
[2017-06-27 07:16] VITALS: BP 108/60
--- NOTE | 2017-06-27 07:48 | PN- Housestaff ---
EstradaSary 06/27/17 0748: Subjective Follow-up For: #Hypercarbic Hypoxic Resp Failure #Chronic medical conditions of CAD, COPD, JELANI, A-fib, HLD, hx of epidural abscess w subsequent paralegia and neurogenic bladder Subjective: No overnight event. patient felt improved. patient would not want to go to rehab. Review of Systems Constitutional: Reports: see HPI. Objective Last 24 Hrs of Vital Signs/I&O Vital Signs Date Time Temp Pulse Resp B/P B/P Pulse O2 O2 Flow FiO2 Mean Ox Delivery Rate 06/27 0813 94 Nasal 2.0L Cannula 06/27 0755 94 06/27 0716 96.1 60 20 108/60 94 Nasal 2.0L Cannula 06/27 0318 62 97 06/27 0053 65 97 06/27 0050 66 969 06/26 2239 87 94 06/26 2227 98.2 89 20 116/70 92 Nasal Cannula 06/26 2036 72 95 06/26 1702 75 95 06/26 1640 95 Nasal 2.0L Cannula 06/26 1600 Nasal 2.0L Cannula 06/26 1425 97.8 92 20 110/68 91 / 0907 77 140/78 Intake & Output 06/27 1600 06/27 0800 06/27 0000 Intake Total 450 Output Total 625 Balance -625 450 Intake, Oral 450 Output, Urine 625 Physical Exam General Appearance: Alert, Oriented X3, Cooperative, No Acute Distress Cardiovascular: Regular Rate Lungs: Normal Air Movement, bilateral wheezing Abdomen: Normal Bowel Sounds, Soft, No Tenderness Neurological: Normal Speech Extremities: No Edema, Normal Pulses Current Medications: Current Medications Sig/Danni Start time Last Medication Dose Route Stop Time Status Admin Acetaminophen 650 MG Q6P PRN 06/25 1830 AC PO Albuterol Sulfate 3 ML EVERY 4 HRS/AWAKE 06/25 2000 AC 06/27 INH 0753 Albuterol Sulfate 2 PUF Q4P PRN 06/25 1815 AC INH Apixaban 5 MG BID 06/25 2199 AC 06/26 PO 2155 Ascorbic Acid 500 MG BID 06/25 2200 AC 06/26 PO 215 Atorvastatin Calcium 20 MG 1700 / 1700 AC 06/26 PO 1657 Azithromycin 500 MG DAILY 06/26 1000 AC 06/26 Dextrose/Water 250 ML IV 0914 Baclofen 20 MG BID 02/03 2200 AC 06/26 PO 2156 Bisacodyl 10 MG Q48 06/27 1000 AC WV Budesonide/ 2 PUF BID 06/25 2200 AC 06/26 Formoterol Fumarate INH 2200 Docusate Sodium 100 MG DAILY 06/26 1000 AC 06/26 PO 0906 Doxycycline Hyclate 100 MG BID 06/25 2200 DC 02/04 PO 04 2159 0906 Furosemide 60 MG Q48 06/27 1000 AC PO Gabapentin 600 MG Q8 06/25 2200 AC 06/27 PO 0649 Guaifenesin 600 MG BID 06/25 2200 AC 06/26 PO 2156 Lactobacillus 1 CAP BID 06/25 2200 AC 06/26 Acidophilus PO 2156 Lorazepam 1 MG BID 06/25 2200 AC 06/26 PO 2155 Magnesium Oxide 400 MG DAILY 06/26 1000 DC PO Methylprednisolone 40 MG Q12 06/26 2200 AC 06/26 IV 2155 Methylprednisolone 40 MG Q8 06/25 2200 DC 06/26 IV 1340 Metoprolol Succinate 25 MG DAILY 06/25 1814 AC 06/26 PO 0907 Montelukast Sodium 10 MG DAILY 06/26 1000 AC 06/26 PO 0906 Multivitamins 1 TAB DAILY 06/25 1812 AC 06/26 Therapeutic PO 0907 Nortriptyline HCl 10 MG DAILY 06/26 1000 AC 06/26 PO 0906 Omeprazole 20 MG DAILY 06/26 1000 AC 06/27 PO 0650 Oxycodone/ 1 TAB Q6P PRN 06/25 1830 AC 06/26 Acetaminophen PO 2156 Potassium Chloride 20 MEQ DAILY 06/26 1000 AC 06/26 PO 0906 Rifampin 300 MG BID 06/25 2200 AC 06/26 PO 2156 Sotalol HCl 80 MG BID 06/25 2200 AC 06/26 PO 2155 Tiotropium [place] 1 PUF DAILY 06/26 1000 AC 06/26 INH 0907 Trazodone HCl 50 MG QPM 06/25 2200 AC 06/25 PO 2231 Last 24 Hrs of Lab/Bryan Results Last 24 Hrs of Labs/Mics: Laboratory Tests 06/27/17 0733: Sodium Pending, Potassium Pending, Chloride Pending, Carbon Dioxide Pending, Anion Gap Pending, BUN Pending, Creatinine Pending, BUN/Creatinine Ratio Pending , CBC w Diff Pending, WBC Pending, RBC Pending, Hgb Pending, Hct Pending, MCV Pending, MCH Pending, MCHC Pending, RDW Pending, Plt Count Pending, MPV Pending 06/26/17 1120: Anion Gap 7, Estimated GFR > 60, BUN/Creatinine Ratio 33.3 H 06/26/17 1004: Anion Gap 9, Estimated GFR > 60, BUN/Creatinine Ratio 43.3 H, CBC w Diff NO MAN DIFF REQ, RBC 3.83 L, MCV 91.9, MCH 29.6, MCHC 32.2 L, RDW 15.0 H, MPV 8.3, Gran % 82.8 H, Lymphocytes % 12.8 L, Monocytes % 4.1, Eosinophils % 0.1, Basophils % 0.2, Absolute Granulocytes 10.7 H, Absolute Lymphocytes 1.7, Absolute Monocytes 0.5, Absolute Eosinophils 0, Absolute Basophils 0 Assessment/Plan Assessment: Mr. Park, is a 67-year-old gentleman with significant past medical history of paroxysmal atrial fibrillation, paraplegia secondary to a T6-T7 MRSA epidural spinal abscess [on chronic suppressive antibiotic therapy] with neurogenic bladder status post chronic Orellana, coronary artery disease, and COPD on 2 L of home oxygen, who was recently discharged from the hospital for COPD exacerbation on 06/23/2017. He presents to the hospital emergency department with similar complaints. His chest x-ray revealed bibasilar opacities, right greater than left. This was relatively unchanged from previous examination last radiograph. His ABG revealed hypercarbia and acidosis, 7.3/83/298/40 on 50% O2 via BiPAP. CBC revealed white blood cell count 13.7, H&H 12.8/40.1. Electrolytes were unremarkable however bicarbonate was 40. BNP 1600. Flu culture negative. Repeat arterial blood gas revealed 7.34/79/97/42 on 50% oxygen via BiPAP [24/] Problem list/Assessment and Plan Hypercarbic Hypoxic respiratory failure * Etiology: ? Noncompliance versus broken BiPAP * DC IV solumedrol, will start prednisone 60mg qd, and continue taper. * Continue Zithromax 500 mg qd x 5d, currently day 2 * Total respiratory care/nebulizer and BiPAP as tolerated * DC to STR for BiPAP incompliance/broken machine. However patient denied going to SNF Chronic medical problems * Hx of: CAD, COPD, JELANI, A-fib, HLD, hx of epidural abscess w subsequent paralegia and neurogenic bladder * Continue Eliquis 5 mg twice a day for A. fib * Continue sotalol 80 mg * Continue gabapentin 600 mg every 8 * Continue prophylactic antibiotics rifampin 300 mg twice a day and doxycycline 100 mg twice a day DVT prophylaxis Eliquis Heart healthy Diet DNR/DNI Pain path as ordered Problem List: 1. BiPAP (biphasic positive airway pressure) dependence 2. Difficulty with BiPAP use 3. Hypercapnic respiratory failure Pain Ratin Pain Location: NA Pain Goal: Remain pain free Pain Plan: see AP Tomorrow's Labs & Rationales: MARTINE PrideRomelia granados 06/27/17 1351: Attending MD Review Statement Attending Statement Attending MD Statement: examined this patient, discuss w/resident/PA/AUTHORIZATION REPRESENTATIVE, agreed w/resident/PA/AUTHORIZATION REPRESENTATIVE, discussed with family, reviewed EMR data (avail), discussed with nursing, discussed with case mgmt, reviewed images, amended to note Attending Assessment/Plan: 67-year-old male chronic hypercapnic respiratory failure with underlying COPD and issues with his BiPAP machine at home, is here for acute on chronic hypercapnic respiratory failure. Taper on IV steroids, azithromycin for pulmonary. He is on chronic suppressive treatment with rifampin and Doxy for an MRSA abscess ( paraplegic). He remains on Eliquis. F/u case management for dc planning. anticipate dc in next 24 hrs.
[2017-06-27 10:23] LABS: ABSOLUTE BASOPHIL COUNT 0 /CUMM (0.0-0.2); ABSOLUTE EOSINOPHIL COUNT 0.1 /CUMM (0.0-0.7); ABSOLUTE GRANULOCYTE CT 7.5 /CUMM (1.4-6.5); ABSOLUTE LYMPH COUNT 3.2 /CUMM (1.2-3.4); BASOPHIL % 0.2 % (0.0-2.0); EOSINOPHIL % 0.7 % (0-5); GRANULOCYTE % 63.9 % (42.2-75.2); HEMATOCRIT 35.2 % (42-52); MEAN CORPUSCULAR HGB 29.2 PG (27.0-31.0); MEAN CORPUSCULAR HGB CONC 31.9 G/DL (33.0-37.0); MEAN CORPUSCULAR VOLUME 91.5 FL (80.0-94.0); MEAN PLATELET VOLUME 8.4 FL (7.4-10.4); PLATELET COUNT 258 /CUMM (130-400); RBC DISTRIBUTION WIDTH 15.4 % (11.5-14.5); RED BLOOD CELL CT 3.84 /CUMM (4.70-6.10); WHITE BLOOD CELL COUNT 11.8 /CUMM (4.8-10.8)
--- NOTE | 2017-06-27 11:05 | PN- Pulmonary ---
Subjective HPI/Critical Care Issues: Patient seen and examined this morning. He appears to be doing much better. We will observe him for another day and decide whether he is ready for discharge Objective Current Medications: Current Medications Sig/Danni Start time Last Medication Dose Route Stop Time Status Admin Acetaminophen 650 MG Q6P PRN 06/25 1830 AC PO Albuterol Sulfate 3 ML EVERY 4 HRS/AWAKE 06/25 1999 AC 06/27 INH 0753 Albuterol Sulfate 2 PUF Q4P PRN 06/25 181 AC INH Apixaban 5 MG BID 06/25 220 AC 06/27 PO 1018 Ascorbic Acid 500 MG BID 06/25 220 AC 06/27 PO 1017 Atorvastatin Calcium 20 MG 1700 06/26 1700 AC 06/26 PO 1657 Azithromycin 500 MG DAILY 06/26 1000 AC 06/27 Dextrose/Water 250 ML IV 1021 Baclofen 20 MG BID 06/25 220 AC 06/27 PO 1018 Bisacodyl 10 MG Q48 06/27 1000 AC DC Budesonide/ 2 PUF BID 06/25 220 AC 06/27 Formoterol Fumarate INH 1016 Docusate Sodium 100 MG DAILY 06/26 1000 AC 06/27 PO 1019 Doxycycline Hyclate 100 MG BID 06/25 2200 DC 06/26 PO 06/26 2159 0906 Furosemide 60 MG Q48 06/27 1000 AC 06/27 PO 1019 Gabapentin 600 MG Q8 06/25 2200 AC 06/27 PO 0649 Guaifenesin 600 MG BID 06/25 220 AC 06/27 PO 1019 Lactobacillus 1 CAP BID 06/25 220 AC 06/27 Acidophilus PO 1019 Lorazepam 1 MG BID 06/25 220 AC 06/27 PO 1017 Methylprednisolone 40 MG Q12 06/26 2200 AC 06/27 IV 1016 Methylprednisolone 40 MG Q8 06/25 2200 DC 06/26 IV 1340 Metoprolol Succinate 25 MG DAILY 06/25 1814 AC 06/27 PO 1018 Montelukast Sodium 10 MG DAILY 06/26 1000 AC 06/27 PO 1018 Multivitamins 1 TAB DAILY 06/25 181 AC 06/27 Therapeutic PO 1018 Nortriptyline HCl 10 MG DAILY 06/26 1000 AC 06/27 PO 1016 Omeprazole 20 MG DAILY 06/26 1000 AC 06/27 PO 0650 Oxycodone/ 1 TAB Q6P PRN 06/25 1830 AC 06/26 Acetaminophen PO 2156 Potassium Chloride 20 MEQ DAILY 06/26 1000 AC 06/27 PO 1017 Rifampin 300 MG BID 06/25 220 AC 06/27 PO 1018 Sotalol HCl 80 MG BID 06/25 220 AC 06/27 PO 1018 Tiotropium [place] 1 PUF DAILY 06/26 1000 AC 06/27 INH 1015 Trazodone HCl 50 MG QPM 06/25 220 AC 06/25 PO 2231 Vital Signs & I&O Last 24 Hrs of Vitals and I&O: Vital Signs Date Time Temp Pulse Resp B/P B/P Pulse O2 O2 Flow FiO2 Mean Ox Delivery Rate 06/27 1018 96.1 60 20 160/80 06/27 0813 94 Nasal 2.0L Cannula 06/27 0755 94 06/27 0716 96.1 60 20 108/60 94 Nasal 2.0L Cannula 06/27 0318 62 97 06/27 0053 65 97 06/27 0050 66 969 06/27 0000 92 BIPAP 40% 06/269 87 94 06/26 2227 98.2 89 20 116/70 92 Nasal Cannula 06/26 2036 72 95 06/26 1702 75 95 06/26 1640 95 Nasal 2.0L Cannula 06/26 1600 Nasal 2.0L Cannula 06/26 1425 97.8 92 20 110/68 91 Intake & Output 06/27 1600 06/27 0800 02 0000 Intake Total 100 450 Output Total 625 Balance -525 450 Intake, IV 0 Intake, Oral 100 450 Number 0 Bowel Movements Output, Urine 625 Exam Other Physical Findings: Generally - Awake Head and neck - ncat Cardiovascular - S1, S2 Lungs -bilateral rhonchi Abdomen - Bowel sounds positive, soft, non-tender Extremities - without edema Results Last 24 Hrs of Lab Results: Laboratory Tests 06/27/17 0733: Anion Gap 8, Estimated GFR > 60, BUN/Creatinine Ratio 41.7 H, CBC w Diff NO MAN DIFF REQ, RBC 3.84 L, MCV 91.5, MCH 29.2, MCHC 31.9 L, RDW 15.4 H, MPV 8.4, Gran % 63.9, Lymphocytes % 26.8, Monocytes % 8.4, Eosinophils % 0.7, Basophils % 0.2, Absolute Granulocytes 7.5 H, Absolute Lymphocytes 3.2, Absolute Monocytes 1.0 H, Absolute Eosinophils 0.1, Absolute Basophils 0 06/26/17 1120: Anion Gap 7, Estimated GFR > 60, BUN/Creatinine Ratio 33.3 H Impression/Plan Impression/Plan Impression/Plan: Impression 67 year old man * acute on chronic hypercarbic respiratory failure - issues with home bipap * acute COPD exacerbation Plan -dc solumedrol today, begin prednisone 60mg - will taper with you -cont bipap -clinically no need to repeat abg today -trc/nebs -spo2 goal >92% -incentive spirometry DVT prophylaxis at all times pt has declined STR
--- NOTE | 2017-06-27 14:32 | Patient Discharge Instructions ---
Discharge Instructions General Discharge Information You were seen/treated for: #Hypercarbic Hypoxi Resp Failure #Chronic medical conditions of CAD, COPD, JELANI, A-fib, HLD, hx of epidural abscess w subsequent paralegia and neurogenic bladder Special Instructions: - Please ensure correct daily use of BiPAP for your respiratory support. - Please follow up with your primary care physician within 1-2 week of discharge. Inform your primary care physician of this admission to [facility]. - Continue your current medications per discharge instructions. - Please watch for these problems: Fever, Chills, Nausea, Vomiting, Shortness of Breath, Productive Cough, Chest Pain/Discomfort, Abdominal Pain, Active Bleeding or Bloody urine/stool. Diet Continue normal diet: Yes Activity Full Activity/No Limits: No Activity Self Limited: Yes Acute Coronary Syndrome Inclusion Criteria At DC or during hospital stay patient has or had the following: ACS DIAGNOSIS No Discharge Core Measures Meds if any: Prescribed or Continued at Discharge Meds if any: NOT Prescribed or Continued at Discharge Congestive Heart Failure Inclusion Criteria At DC or during hospital stay patient has or had the following: CHF DIAGNOSIS No Discharge Core Measures Meds if any: Prescribed or Continued at Discharge Meds if any: NOT Prescribed or Continued at Discharge Cerebrovascular accident Inclusion Criteria At DC or during hospital stay patient has or had the following: CVA/TIA Diagnosis No Discharge Core Measures Meds if any: Prescribed or Continued at Discharge Meds if any: NOT Prescribed or Continued at Discharge Venous thromboembolism Inclusion Criteria VTE Diagnosis No VTE Type NONE VTE Confirmed by (Test) NONE Discharge Core Measures - Per Current guidelines, there needs to be overlap - treatment for the first 5 days of Warfarin therapy. - If discharged on Warfarin prior to 5 days of - overlap therapy, the patient will need to be - assessed for post discharge needs including - *Post discharge parental anticoagulation - *Warfarin and/or parental anticoagulation education - *Follow up date to check INR post discharge At least 5 days overlap therapy as Inpatient No Meds if any: Prescribed or Continued at Discharge Note: Overlap Therapy is Warfarin and Anticoagulant Meds if any: NOT Prescribed or Continued at Discharge
--- NOTE | 2017-06-27 14:34 | Discharge Summary ---
Visit Information Visit Dates Admission Date: 06/25/17 Discharge Date: 06/29/2017 Hospital Course Course Attending Physician: Romelia Cobian MD Primary Care Physician: Dominguez Serrano MD Hospital Course: Mr. Park, is a 67-year-old gentleman with significant past medical history of paroxysmal atrial fibrillation, paraplegia secondary to a T6-T7 MRSA epidural spinal abscess [on chronic suppressive antibiotic therapy] with neurogenic bladder status post chronic Orellana, coronary artery disease, and COPD on 2 L of home oxygen, who was recently discharged from the hospital for COPD exacerbation on 06/23/2017. He presents to the hospital emergency department with similar complaints. Upon presentation, chest x-ray revealed bibasilar opacities, right greater than left, relatively unchanged from previous examination last radiograph. ER ABG revealed hypercarbia and acidosis, 7.3/83/298/40 on 50% O2 via BiPAP. CBC revealed white blood cell count 13.7, H&H 12.8/40.1. Electrolytes were unremarkable however bicarbonate was 40. BNP 1600. Flu culture negative. Repeat arterial blood gas revealed 7.34/79/97/42 on 50% oxygen via BiPAP [/] Patient was admitted to general medicine floor for follow managements: #Hypercarbic Hypoxic respiratory failure Upon admission, patient was started on IV solumedrol and later tapered to oral prednisone. Patient was also given for a total of 5 days course of Zithromax, in addition to total respiratory care/Nebulizer and BiPAP for support. Patient was discharged with oral prednisone tapering dose and confirmed his home BiPAP was functional by overnight testing during this hospital stay. #Chronic medical conditions including CAD, COPD, JELANI, A-fib, HLD, hx of epidural abscess w subsequent paralegia and neurogenic bladder Patient was continued on home medications including Eliquis 5 mg twice a day for A. fib, sotalol 80 mg, gabapentin 600 mg every 8 hours daily, and prophylactic antibiotics rifampin 300 mg twice a day and doxycycline 100 mg twice a day. Patient remained on chronic Orellana over hospital course. DVT prophylaxis Eliquis Heart healthy Diet DNR/DNI Pain path as ordered Allergies: Coded Allergies: heparin (Intermediate, SWELLING, RASH 03/07/17) vancomycin (Intermediate, HIVES, SKIN CRACKES, TURNS RED, SWELLS AND PEELS 03/07) warfarin (From COUMADIN) (Intermediate, RASH 03/07/17) Pertinent Lab Results: SERVICE DATE: 06/25/17 EXAM TYPE: RAD - XRY-PORTABLE CHEST XRAY IMPRESSION: No significant change in bibasilar opacities, right greater than left, possibly due to chronic atelectasis or chronic infiltrate. Laboratory Tests 06/27 06/26 0733 1120 Chemistry Sodium (137 - 145 mmol/L) 139 140 Potassium (3.5 - 5.1 mmol/L) 4.1 4.6 Chloride (98 - 107 mmol/L) 91 L 89 L Carbon Dioxide (22 - 30 mmol/L) 40 H 44 H Anion Gap (5 - 16) 8 7 BUN (9 - 20 mg/dL) 25 H 20 Creatinine (0.7 - 1.2 mg/dL) 0.6 L 0.6 L Estimated GFR (>60 ml/min) > 60 > 60 BUN/Creatinine Ratio (7 - 25 %) 41.7 H 33.3 H Hematology CBC w Diff NO MAN DIFF REQ WBC (4.8 - 10.8 /CUMM) 11.8 H RBC (4.70 - 6.10 /CUMM) 3.84 L Hgb (14.0 - 18.0 G/DL) 11.2 L Hct (42 - 52 %) 35.2 L MCV (80.0 - 94.0 FL) 91.5 MCH (27.0 - 31.0 PG) 29.2 MCHC (33.0 - 37.0 G/DL) 31.9 L RDW (11.5 - 14.5 %) 15.4 H Plt Count (130 - 400 /CUMM) 258 MPV (7.4 - 10.4 FL) 8.4 Gran % (42.2 - 75.2 %) 63.9 Lymphocytes % (20.5 - 51.1 %) 26.8 Monocytes % (1.7 - 9.3 %) 8.4 Eosinophils % (0 - 5 %) 0.7 Basophils % (0.0 - 2.0 %) 0.2 Absolute Granulocytes (1.4 - 6.5 /CUMM) 7.5 H Absolute Lymphocytes (1.2 - 3.4 /CUMM) 3.2 Absolute Monocytes (0.10 - 0.60 /CUMM) 1.0 H Absolute Eosinophils (0.0 - 0.7 /CUMM) 0.1 Absolute Basophils (0.0 - 0.2 /CUMM) 0 / 1004 Chemistry Sodium (137 - 145 mmol/L) 142 Potassium (3.5 - 5.1 mmol/L) 2.7 *L Chloride (98 - 107 mmol/L) 107 Carbon Dioxide (22 - 30 mmol/L) 25 Anion Gap (5 - 16) 9 BUN (9 - 20 mg/dL) 13 Creatinine (0.7 - 1.2 mg/dL) 0.3 L Estimated GFR (>60 ml/min) > 60 BUN/Creatinine Ratio (7 - 25 %) 43.3 H Hematology CBC w Diff NO MAN DIFF REQ WBC (4.8 - 10.8 /CUMM) 12.9 H RBC (4.70 - 6.10 /CUMM) 3.83 L Hgb (14.0 - 18.0 G/DL) 11.4 L Hct (42 - 52 %) 35.3 L MCV (80.0 - 94.0 FL) 91.9 MCH (27.0 - 31.0 PG) 29.6 MCHC (33.0 - 37.0 G/DL) 32.2 L RDW (11.5 - 14.5 %) 15.0 H Plt Count (130 - 400 /CUMM) 241 MPV (7.4 - 10.4 FL) 8.3 Gran % (42.2 - 75.2 %) 82.8 H Lymphocytes % (20.5 - 51.1 %) 12.8 L Monocytes % (1.7 - 9.3 %) 4.1 Eosinophils % (0 - 5 %) 0.1 Basophils % (0.0 - 2.0 %) 0.2 Absolute Granulocytes (1.4 - 6.5 /CUMM) 10.7 H Absolute Lymphocytes (1.2 - 3.4 /CUMM) 1.7 Absolute Monocytes (0.10 - 0.60 /CUMM) 0.5 Absolute Eosinophils (0.0 - 0.7 /CUMM) 0 Absolute Basophils (0.0 - 0.2 /CUMM) 0 Disposition Summary Disposition Principal Diagnosis: #Hypercarbic Hypoxic respiratory failure #Incompliance with BiPAP use #Chronic medical conditions including CAD, COPD, JELANI, A-fib, HLD, hx of epidural abscess w subsequent paralegia and neurogenic bladder Additional Diagnosis: As Above Discharge Disposition: home or self care Discharge Instructions General Discharge Information Code Status: Do Not Resucitate/Intubat Patient's Diet: Heart Healthy Diet Patient's Activity: Limited to Paralegia Follow-Up Instructions/Appts: - Please ensure correct daily use of BiPAP for your respiratory support. - Please follow up with your primary care physician within 1-2 week of discharge. Inform your primary care physician of this admission to [facility]. - Continue your current medications per discharge instructions. - Please watch for these problems: Fever, Chills, Nausea, Vomiting, Shortness of Breath, Productive Cough, Chest Pain/Discomfort, Abdominal Pain, Active Bleeding or Bloody urine/stool. Medications at Discharge Discharge Medications: Continue taking these medications: Furosemide (Furosemide) 20 MG TABLET 3 Tablet ORAL EVERY 48 HOURS (Every 2 days) Qty = 90 Comments: Last Taken: 06/29/17 Time: 0930 AM Lactobacillus Acidophilus (Acidophilus) 1 EACH CAPSULE 1 Capsule ORAL TWICE DAILY Comments: Last Taken:06/29/17 Time:9AM Magnesium Oxide (Magnesium) 400 MG CAPSULE 1 Capsule ORAL 0600 Comments: Last Taken:06/30/17 Time:9AM Multivitamin (Daily Value) 1 EACH TABLET 1 Tablet ORAL DAILY Comments: Last Taken:06/30/16 Time:9AM Ascorbate Calcium (Vitamin C) 500 MG TABLET 1 Tablet ORAL TWICE DAILY Comments: Last Taken:06/29/17 Time:9AM Oxycodone HCl/Acetaminophen (Oxycodone-Acetaminophen 5-325) 5 MG-325 MG TABLET 1 Tablet ORAL Q4H as needed for PAIN Qty = 120 Comments: Last Taken:06/29/17 Time:5AM Baclofen (Baclofen) 20 MG TABLET 1 Tablet ORAL TWICE DAILY Qty = 150 Comments: Last Taken:06/29/17 Time:9AM Bisacodyl (Dulcolax) 10 MG SUPP.RECT 1 Suppository RECTAL EVERY 48 HOURS (Every 2 days) Comments: NOT GIVEN IN HOSPITAL Potassium Chloride (Potassium Chloride) 20 MEQ TAB.ER.PRT 1 Tablet ORAL DAILY Qty = 90 Comments: Last Taken:06/29/17 Time:9AM Doxycycline Hyclate (Doxycycline Hyclate) 100 MG CAPSULE 1 Capsule ORAL TWICE DAILY Qty = 60 Comments: NOT GIVEN IN HOSPITAL Sotalol (Betapace) 80 MG TABLET 80 Milligram ORAL TWICE DAILY Qty = 60 Comments: Last Taken: 06/29/17 Time: 0930AM Apixaban (Eliquis) 5 MG TABLET 5 Milligram ORAL TWICE DAILY Qty = 60 Comments: Last Taken: 06/29/17 Time: 09:30AM Albuterol Sulfate (Ventolin Hfa) 90 MCG HFA.AER.AD 2 Puff Inhale through mouth As Directed as needed for COPD Qty = 18 Comments: Last Taken:06/29/17 Time:8AM Budesonide/Formoterol Fumarate (Symbicort 80-4.5 Mcg Inhaler) 80 MCG-4.5 MCG/ ACTUATION HFA.AER.AD 2 Puff Inhale through mouth TWICE DAILY Comments: Last Taken:06/29/17 Time:9AM Gabapentin (Gabapentin) 600 MG TABLET 1 Tablet ORAL THREE TIMES DAILY Comments: Last Taken: 06/29/17 Time: 5AM Rifampin (Rifadin) 300 MG CAPSULE 300 Milligram ORAL TWICE DAILY Qty = 60 Comments: TAKEN: 06/29/17 TIME: 9 AM Acetaminophen (Tylenol Arthritis) 650 MG TABLET.ER 1 Tablet ORAL EVERY 6 HOURS NEEDED as needed for PAIN Comments: Last Taken:06/29/17 Time:4PM Lorazepam (Lorazepam) 1 MG TABLET 1 Tablet ORAL TWICE DAILY Comments: Last Taken:06/29/17 Time:9AM Metoprolol Succ XL (Toprol XL) 25 MG TAB 1 Tablet ORAL DAILY Comments: Last Taken: 06/29/17 Time: 0930AM Nortriptyline HCl (Nortriptyline HCl) 10 MG CAPSULE 1 Capsule ORAL DAILY Comments: Last Taken: 06/29/17 Time: 0930AM Omeprazole (Omeprazole) 20 MG CAPSULE.DR 1 Capsule ORAL DAILY Comments: Last Taken: 06/29/17 Time: 0930 AM Evolocumab (Repatha Sureclick) 140 MG/ML PEN.INJCTR 1 Milliliters Inject into fatty tissue EVERY 2 WEEKS Comments: NOT GIVEN IN HOSPITAL Rosuvastatin Calcium (Crestor) 5 MG TABLET 1 Tablet ORAL DAILY Comments: Last Taken: 06/22/17 Time: 1647PM SUBSTITUTED Montelukast Sodium (Singulair) 10 MG TABLET 1 Tablet ORAL DAILY Comments: Last Taken:06/29/17 Time:9AM Tiotropium [place] (Spiriva) 18 MCG CAP.W.DEV 1 Capsule Inhale through mouth DAILY Comments: Last Taken:06/29/17 Time:9AM Atomoxetine HCl (Strattera) 40 MG CAPSULE 1 Capsule ORAL Every Morning Comments: NOT GIVEN Trazodone HCl (Trazodone HCl) 50 MG TABLET 1 Tablet ORAL Every night Comments: Last Taken: 06/28/17 Time: 2200PM Docusate Sodium (Stool Softener) 100 MG CAPSULE 1 Capsule ORAL DAILY Comments: Last Taken: 06/29/17 Time: 0930AM Guaifenesin (Mucinex) 600 MG TAB.ER.12H 1 Tablet ORAL TWICE DAILY Comments: Last Taken: 06/29/17 Time: 930AM Start taking the following new medications: Azithromycin (Azithromycin) 500 MG TABLET 1 Tablet ORAL DAILY Qty = 1 No Refills Instructions: . Comments: NOT GIVEN Prednisone (Prednisone) 10 MG TABLET 1 Tablet ORAL TWICE DAILY Qty = 30 No Refills Instructions: . Comments: 06/30-07/01: Please take 5 tablets, once daily 07/02-07/03: Please take 4 tablets, once daily 07/04-07/05: Please take 3 tablets, once daily 07/06-07/07: Please take 2 tablets, once daily 07/08-07/09: Please take 1 tablets, once daily 07/10: STOP Copies To: Zach VOGEL,Dominguez Gray Attending MD Review Statement Documenting Attending: Mango VOGEL,Romelia Other Findings: 67-year-old male chronic hypercapnic respiratory failure with underlying COPD and issues with his BiPAP machine at home, is here for acute on chronic hypercapnic respiratory failure. Taper on PO steroids, azithromycin for pulmonary. He is on chronic suppressive treatment with rifampin and Doxy for an MRSA abscess ( paraplegic). He remains on Eliquis. Patient seen/examined bedside. Patient denies any new complaints. He is on oxygen supplementation, uses bipap at night. Minimal use of accessry muscles. Patient tried hospital/large mask and tolerated well overnight. F/u case management for dc planning. Anticipate dc soon.
[2017-06-27 15:09] VITALS: BP 110/70
[2017-06-27 22:31] VITALS: BP 112/60
[2017-06-28 06:17] VITALS: BP 118/62
--- NOTE | 2017-06-28 08:28 | PN- Housestaff ---
DoradoSary 06/28/17 0826: Subjective Follow-up For: #Hypercarbic Hypoxic Resp Failure #Incompliance of BiPAP use #Chronic medical conditions of CAD, COPD, JELANI, A-fib, HLD, hx of epidural abscess w subsequent paralegia and neurogenic bladder Subjective: No overnight event. Patient was haveing respiratory treatment when I entered Review of Systems Constitutional: Reports: see HPI. Objective Last 24 Hrs of Vital Signs/I&O Vital Signs Date Time Temp Pulse Resp B/P B/P Pulse O2 O2 Flow FiO2 Mean Ox Delivery Rate 06/28 0756 93 Nasal 2.0L Cannula 06/28 0755 82 93 06/28 0617 97.9 83 20 118/62 94 06/28 0020 82 96 06/27 2232 86 92 06/27 2231 98.3 71 18 112/60 94 Nasal Cannula 06/27 2055 92 Nasal 2.0L Cannula 06/27 1613 94 Nasal 2.0L Cannula 06/27 1600 94 Nasal 2.0L Cannula 06/27 1509 97.7 77 16 110/70 93 06/27 1018 96.1 60 20 160/80 Intake & Output 06/28 1600 06/28 0800 06/28 0000 Intake Total 480 Output Total 50 850 Balance -50 -370 Intake, Oral 480 Number 1 Bowel Movements Output, Urine 50 850 Patient 101.151 kg Weight Weight Reported by Patient Measurement Method Physical Exam General Appearance: Alert, Oriented X3, Cooperative, No Acute Distress Cardiovascular: Regular Rate Lungs: Clear to Auscultation, Normal Air Movement, Under TRC/Neb treatment during examine Abdomen: Normal Bowel Sounds, Soft, No Tenderness Neurological: Normal Speech Extremities: No Edema, Normal Pulses Assessment/Plan Assessment: Mr. Park, is a 67-year-old gentleman with significant past medical history of paroxysmal atrial fibrillation, paraplegia secondary to a T6-T7 MRSA epidural spinal abscess [on chronic suppressive antibiotic therapy] with neurogenic bladder status post chronic Orellana, coronary artery disease, and COPD on 2 L of home oxygen, who was recently discharged from the hospital for COPD exacerbation on 06/23/2017. He presents to the hospital emergency department with similar complaints. His chest x-ray revealed bibasilar opacities, right greater than left. This was relatively unchanged from previous examination last radiograph. His ABG revealed hypercarbia and acidosis, 7.3/83/298/40 on 50% O2 via BiPAP. CBC revealed white blood cell count 13.7, H&H 12.8/40.1. Electrolytes were unremarkable however bicarbonate was 40. BNP 1600. Flu culture negative. Repeat arterial blood gas revealed 7.34/79/97/42 on 50% oxygen via BiPAP [13/11] Problem list/Assessment and Plan Hypercarbic Hypoxic respiratory failure * Etiology: Noncompliance versus broken BiPAP * DC IV solumedrol, will continue prednisone 60mg qd and will taper per clinical conditions - Patient's partner was supposed to bring in the the BiPAP machine. CM has contacted the partner to bring the machine in today, and we probably need to test the BiPAP here overnight. * Continue Zithromax 500 mg qd x 5d, currently day 3 * Total respiratory care/nebulizer and BiPAP as tolerated * Best to DC to STR for BiPAP incompliance/broken machine. However patient denied going to SNF. Would try to repair his BiPAP within hospital stay as mentioned above. Chronic medical problems * Hx of: CAD, COPD, JELANI, A-fib, HLD, hx of epidural abscess w subsequent paralegia and neurogenic bladder * Continue Eliquis 5 mg twice a day for A. fib * Continue sotalol 80 mg * Continue gabapentin 600 mg every 8 * Continue prophylactic antibiotics rifampin 300 mg twice a day and doxycycline 100 mg twice a day DVT prophylaxis Eliquis Heart healthy Diet DNR/DNI Pain path as ordered Problem List: 1. BiPAP (biphasic positive airway pressure) dependence 2. Difficulty with BiPAP use Pain Ratin Pain Location: NA Pain Goal: Remain pain free Pain Plan: see AP Tomorrow's Labs & Rationales: Romelia Antony 06/28/17 1309: Attending MD Review Statement Attending Statement Attending MD Statement: examined this patient, discuss w/resident/PA/STREET PHOTOGRAPHER, agreed w/resident/PA/STREET PHOTOGRAPHER, discussed with family, reviewed EMR data (avail), discussed with nursing, discussed with case mgmt, reviewed images, amended to note Attending Assessment/Plan: Patient seen/examined bedside. Patient denies any new complaints. He is on oxygen supplementation, uses bipap at night. Minimal use of accessry muscles. 67-year-old male chronic hypercapnic respiratory failure with underlying COPD and issues with his BiPAP machine at home, is here for acute on chronic hypercapnic respiratory failure. Taper on PO steroids, azithromycin for pulmonary. He is on chronic suppressive treatment with rifampin and Doxy for an MRSA abscess ( paraplegic). He remains on Eliquis. F/u case management for dc planning. anticipate dc in next 24 hrs.
[2017-06-28] MEDS ORDERED: PREDNISONE10 M2 PO ×2 (08:58→14:45)
[2017-06-28 14:32] VITALS: BP 110/72
[2017-06-28 22:15] VITALS: BP 110/60
--- NOTE | 2017-06-29 07:30 | PN- Housestaff ---
See Addendum Subjective Follow-up For: #Hypercarbic Hypoxic Resp Failure #Incompliance of BiPAP use #Chronic medical conditions of CAD, COPD, JELANI, A-fib, HLD, hx of epidural abscess w subsequent paralegia and neurogenic bladder Subjective: No overnight event. Patient stated that the home BiPAP worked well overnight and had no specific complaint. Review of Systems Constitutional: Reports: see HPI. Objective Last 24 Hrs of Vital Signs/I&O Vital Signs Date Time Temp Pulse Resp B/P B/P Pulse O2 O2 Flow FiO2 Mean Ox Delivery Rate 06/29 0750 98.1 68 20 120/66 91 Nasal Room Air Cannula 06/29 0609 94 Nasal 2.0L Cannula 06/29 0608 94 06/29 0116 60 93 06/28 2215 96.7 67 20 110/60 96 06/28 1600 Nasal 2.0L Cannula 06/28 1432 97.7 94 20 110/72 96 06/28 0930 93 Nasal 2.0L Cannula Intake & Output 06/29 1600 06/29 0800 06/29 0000 Intake Total 820 Output Total 525 1300 Balance -525 -480 Intake, IV 20 Intake, Oral 800 Output, Urine 525 1300 Physical Exam General Appearance: Alert, Oriented X3, Cooperative, No Acute Distress Cardiovascular: Regular Rate Lungs: Clear to Auscultation, Normal Air Movement Abdomen: Normal Bowel Sounds, Soft, No Tenderness Neurological: Normal Speech Extremities: No Edema, Normal Pulses Current Medications: Current Medications Sig/Danni Start time Last Medication Dose Route Stop Time Status Admin Acetaminophen 650 MG .STK-MED ONE 06/28 1612 DC PO 06/28 1613 Acetaminophen 650 MG Q6P PRN 06/25 1830 AC 06/28 PO 1612 Albuterol Sulfate 3 ML EVERY 4 HRS/AWAKE 06/25 1999 AC 06/29 INH 0611 Albuterol Sulfate 2 PUF Q4P PRN 06/25 1815 AC 06/28 INH 0954 Apixaban 5 MG BID 06/25 2199 AC 06/28 PO 2020 Ascorbic Acid 500 MG BID 06/25 2199 AC 06/28 PO 2019 Atorvastatin Calcium 20 MG 1700 06/26 1700 AC 06/28 PO 1610 Azithromycin 500 MG DAILY 06/26 1000 AC 06/28 Dextrose/Water 250 ML IV 0949 Baclofen 20 MG BID 06/25 2199 AC 06/28 PO 2020 Bisacodyl 10 MG Q48H / 1730 AC 06/27 OH 1759 Budesonide/ 2 PUF BID 06/25 2200 AC 06/29 Formoterol Fumarate INH 0045 Docusate Sodium 100 MG DAILY 06/26 1000 AC 06/28 PO 0943 Furosemide 60 MG Q48 / 1000 AC 06/27 PO 1019 Gabapentin 600 MG Q8 06/25 2200 AC 06/29 PO 0503 Guaifenesin 600 MG BID 06/25 2200 AC 06/28 PO 2020 Lactobacillus 1 CAP BID 06/25 2200 AC 06/28 Acidophilus PO 2019 Lorazepam 1 MG BID 06/25 2200 AC 06/28 PO 2019 Metoprolol Succinate 25 MG DAILY 06/25 1814 AC 06/28 PO 0947 Montelukast Sodium 10 MG DAILY 06/26 1000 AC 06/28 PO 0946 Multivitamins 1 TAB DAILY 06/25 1812 AC 06/28 Therapeutic PO 0947 Nortriptyline HCl 10 MG DAILY 06/26 1000 AC 06/28 PO 0942 Omeprazole 20 MG DAILY 06/26 1000 AC 06/29 PO 0503 Oxycodone/ 1 TAB Q6P PRN 06/25 1830 AC 06/29 Acetaminophen PO 0500 Potassium Chloride 20 MEQ DAILY 06/26 1000 AC 06/28 PO 0944 Prednisone 60 MG DAILY 06/28 1000 AC 06/28 PO 0945 Rifampin 300 MG BID 06/25 2200 AC 06/28 PO 2019 Sotalol HCl 80 MG BID 06/25 2200 AC 06/28 PO 2020 Tiotropium [place] 1 PUF DAILY 06/26 1000 AC 06/28 INH 0946 Trazodone HCl 50 MG QPM 06/25 2200 AC 06/25 PO 2231 Assessment/Plan Assessment: Mr. Park, is a 67-year-old gentleman with significant past medical history of paroxysmal atrial fibrillation, paraplegia secondary to a T6-T7 MRSA epidural spinal abscess [on chronic suppressive antibiotic therapy] with neurogenic bladder status post chronic Orellana, coronary artery disease, and COPD on 2 L of home oxygen, who was recently discharged from the hospital for COPD exacerbation on 06/23/2017. He presents to the hospital emergency department with similar complaints. His chest x-ray revealed bibasilar opacities, right greater than left. This was relatively unchanged from previous examination last radiograph. His ABG revealed hypercarbia and acidosis, 7.3/83/298/40 on 50% O2 via BiPAP. CBC revealed white blood cell count 13.7, H&H 12.8/40.1. Electrolytes were unremarkable however bicarbonate was 40. BNP 1600. Flu culture negative. Repeat arterial blood gas revealed 7.34/79/97/42 on 50% oxygen via BiPAP [24/] Problem list/Assessment and Plan Hypercarbic Hypoxic respiratory failure * Etiology: Noncompliance versus broken BiPAP * DC IV solumedrol, will continue prednisone 60mg qd and will taper per clinical conditions - Patient's partner was supposed to bring in the the BiPAP machine. Overnight testing of BiPAP worked well and patient was discharged with the mask he was using overnight here. * Continue Zithromax 500 mg qd x 5d, currently day 4, will discharge with 1 more tablet of zithromax. * Total respiratory care/nebulizer and BiPAP as tolerated * DC planning to home health service today. Chronic medical problems * Hx of: CAD, COPD, JELANI, A-fib, HLD, hx of epidural abscess w subsequent paralegia and neurogenic bladder * Continue Eliquis 5 mg twice a day for A. fib * Continue sotalol 80 mg * Continue gabapentin 600 mg every 8 * Continue prophylactic antibiotics rifampin 300 mg twice a day and doxycycline 100 mg twice a day DVT prophylaxis Eliquis Heart healthy Diet DNR/DNI Pain path as ordered Problem List: 1. Difficulty with BiPAP use 2. BiPAP (biphasic positive airway pressure) dependence Pain Ratin Pain Location: NA Pain Goal: Remain pain free Pain Plan: see AP Tomorrow's Labs & Rationales: NA
[2017-06-29 07:50] VITALS: BP 120/66
[2017-06-29] MEDS ORDERED: AZITHROMYCIN500 M3 PO ×2 (09:28→12:48)
[2017-06-29 09:54] VITALS: BP 120/66
[2017-06-29] MEDS ORDERED: PREDNISONE10 M2 PO (12:48)
== END 2017-06-29 14:20 | disposition home health service (06) | DRG 189 ==
LOC: ERH 12:42 → 2NA 15:27 → ERHI 15:27 → ENRESERV 17:33 → ENTRNSPT 20:08 → EDTRNSPTSTS 20:27 → EDTRNSPT 20:27 → 2NA 20:34 → CMPTRNSPT 20:49 → 2NA 06-27 09:52 → ENPENDDIS 06-29 11:46 → 2NA 06-29 14:20
PROVIDERS: Internal Medicine; Internal Medicine Cardiovascular Disease
DX: J96.22 Acute and chronic respiratory failure with hypercapnia (principal); E87.2 Acidosis; G82.20 Paraplegia, unspecified; I48.0 Paroxysmal atrial fibrillation; J44.1 Chronic obstructive pulmonary disease with (acute) exacerbation; Z99.81 Dependence on supplemental oxygen; N31.9 Neuromuscular dysfunction of bladder, unspecified; I25.10 Atherosclerotic heart disease of native coronary artery without angina pectoris; G47.33 Obstructive sleep apnea (adult) (pediatric); E78.5 Hyperlipidemia, unspecified; Z66 Do not resuscitate; Z91.19 Patient's noncompliance with other medical treatment and regimen; Z79.01 Long term (current) use of anticoagulants; Z79.2 Long term (current) use of antibiotics; Z86.14 Personal history of Methicillin resistant Staphylococcus aureus infection; I25.2 Old myocardial infarction
CPT/HCPCS: 2NAP; 36415; 71045; 82436; 87804; 87804-59; 93005; 93010; J0456; J2920; J2930; J3490; J7060

== ENCOUNTER 2017-07-16 13:29 | Observation (INO) | payer OTHER, MEDICARE ==
[~2017-07-16] VITALS: Ht 175.3 cm; Wt 102.7 kg
[~2017-07-16 13:29] MED LIST changes: +AZITHROMYCIN500 M3 PO
--- NOTE | 2017-07-16 13:36 | ED DYSPNEA/ASTHMA COMPLAINT ---
History of Present Illness General Chief Complaint: Dyspnea (COPD, CHF, Other) Stated Complaint: BIBA SOB Source: patient, old records, EMS Exam Limitations: no limitations Vital Signs & Intake/Output Vital Signs & Intake/Output Vital Signs Date Time Temp Pulse Resp B/P B/P Pulse O2 O2 Flow FiO2 Mean Ox Delivery Rate 07/16 1835 98.3 103 50 182/68 96 Nasal 2.0L Cannula 07/16 1648 96 Nasal 3.0L Cannula 07/16 1402 96 Nasal 4.0L Cannula 07/16 1338 98.5 110 161/74 99 CPAP Allergies Coded Allergies: heparin (Intermediate, SWELLING, RASH 03/07/17) vancomycin (Intermediate, HIVES, SKIN CRACKES, TURNS RED, SWELLS AND PEELS 03/07) warfarin (From COUMADIN) (Intermediate, RASH 03/07/17) Reconcile Medications Acetaminophen (Tylenol Arthritis) 650 MG TABLET.ER 1 TAB PO Q6-PRN PRN PAIN ( Reported) Albuterol Sulfate (Ventolin Hfa) 90 MCG HFA.AER.AD 2 PUF INH AD PRN COPD ( Reported) Apixaban (Eliquis) 5 MG TABLET 5 MG PO BID atrial fibrillation Ascorbate Calcium (Vitamin C) 500 MG TABLET 1 TAB PO BID SUPPLEMENT (Reported ) Atomoxetine HCl (Strattera) 40 MG CAPSULE 1 CAP PO QAM MENTAL HEALTH ( Reported) Baclofen 20 MG TABLET 1 TAB PO BID MUSCLE RELAXER (Reported) Bisacodyl (Dulcolax) 10 MG SUPP.RECT 1 SUP RC Q48 GI (Reported) Budesonide/Formoterol Fumarate (Symbicort 80-4.5 Mcg Inhaler) 80 MCG-4.5 MCG/ ACTUATION HFA.AER.AD 2 PUF INH BID COPD (Reported) Docusate Sodium (Stool Softener) 100 MG CAPSULE 1 CAP PO DAILY STOOL SOFTENER (Reported) Doxycycline Hyclate 100 MG CAPSULE 1 CAP PO BID infection (Reported) Esomeprazole (Nexium) 40 MG CAPSULE.DR 1 CAP PO DAILY GI (Reported) Evolocumab (Repatha Sureclick) 140 MG/ML PEN.INJCTR 1 ML SC Q 2 WEEKS CHOLESTEROL (Reported) Furosemide 20 MG TABLET 3 TAB PO Q48 DIURETIC (Reported) Gabapentin 300 MG CAPSULE 2 CAP PO BID NERVE PAIN (Reported) Guaifenesin (Mucinex) 600 MG TAB.ER.12H 1 TAB PO BID CONGESTION (Reported) Hydroxyzine HCl (hydrOXYzine HCl) 10 MG TABLET 1 TAB PO BID PRN ANXIETY ( Reported) Lactobacillus Acidophilus (Acidophilus) 1 EACH CAPSULE 1 CAP PO BID PROBIOTIC (Reported) Lorazepam 1 MG TABLET 1 TAB PO BID ANXIETY (Reported) Magnesium Oxide (Magnesium) 400 MG CAPSULE 1 CAP PO 0600 SUPPLEMENT (Reported ) Metoprolol Succ XL (Toprol XL) 25 MG TAB 1 TAB PO DAILY HEART (Reported) Montelukast Sodium (Singulair) 10 MG TABLET 1 TAB PO DAILY ALLERGIES ( Reported) Multivitamin (Daily Value) 1 EACH TABLET 1 TAB PO DAILY VITAMIN SUPPORT ( Reported) Nortriptyline HCl 10 MG CAPSULE 1 CAP PO DAILY UNKNOWN (Reported) Omeprazole 20 MG CAPSULE.DR 1 CAP PO DAILY ACID REFLUX (Reported) Oxycodone HCl/Acetaminophen (Oxycodone-Acetaminophen 5-325) 5 MG-325 MG TABLET 1 TAB PO Q4H PRN PAIN (Reported) Potassium Chloride 20 MEQ TAB.ER.PRT 1 TAB PO DAILY SUPPLEMENT (Reported) Rifampin (Rifadin) 300 MG CAPSULE 300 MG PO BID MRSA (Reported) Rosuvastatin Calcium (Crestor) 5 MG TABLET 1 TAB PO DAILY CHOLESTEROL ( Reported) Sotalol (Betapace) 80 MG TABLET 80 MG PO BID AARYTHMIAS Tiotropium [place] (Spiriva) 18 MCG CAP.W.DEV 1 CAP INH DAILY BREATHING PROBLEMS (Reported) Trazodone HCl 50 MG TABLET 1 TAB PO QPM SLEEP (Reported) Triage Nurses Notes Reviewed? yes Onset: Abrupt Duration: day(s): (1), constant Timing: recent history Severity: moderate Prior Episodes/Possible Cause: chronic episodes Modifying Factors: Worsens With: movement. Associated Symptoms: wheezing HPI: 67 year old male with PMH significant for paroxysmal atrial fibrillation on elliquis, COPD on 2 L home oxygen, bipap at night, paraplegia as a result of spinal epidural abscess with chronic Orellana catheter for neurogenic bladder, hypertension, hyperlipidemia, CAD s/p PCI 2003 and 2005, aortic valve endocarditis presents emergency room for evaluation complaining of progressively worsening shortness of breath and work of breathing. Patient was having a difficult time at home using his BiPAP today he was given 4 treatments prior to calling the ambulance with no improvement in his symptoms. On arrival patient was titrated down to 3 L of oxygen 96-97% he denies cough fever chills. He is been admitted twice in the past month for history of similar symptoms and is not currently on any prednisone. No leg swelling pain with inspiration fever chills (Jason Diggs) Past History Travel History Traveled to [place] past 21 day No Medical History Any Pertinent Medical History? 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 No (Jason Diggs) Review of Systems Review of Systems Constitutional: Reports: see HPI. Comments Review of systems: See HPI, All other systems negative. Constitutional, no chills no fever, HEENT: no sore throat no congestion, no ear pain Cardiovascular: No chest pain , no palpitation Skin: no rashes, no change in skin Respiratory: dyspnea no cough no sputum no hemoptysis GI: No nausea no vomiting, no diarrhea : No dysuria No hematuria, Muscle skeletal: No joint pain, no back pain, no neck pain, Neurologic: , no headache Heme/endocrine: No bruising Immunology: No lymphadenopathy (Jason Diggs) Physical Exam Physical Exam General Appearance: well developed/nourished, no apparent distress Respiratory: chest non-tender Comments: Well-developed well-nourished person in no acute distress HEENT: Normal EENT exam; PERRL, EOMI, HEAD is atraumatic. moist mucous membranes. Neck: Supple, normal range of motion Back: Full range of motion Cardiovascular: Irregular rate and rhythm, no murmurs rubs, normal JVP Respiratory: Chest nontender.There were no bony deformities, no asymmetry. No respiratory distress. Patient speaking in full complete sentences. Lung sounds rhonchorous no wheezing abd: soft, nontender. Normal bowel sounds. No rebound/guarding, No appreciable enlargement of the abdominal aorta, No ascites. Extremity: No edema, paraplegic, full range of motion of upper extremities, normal and equal pulses bilaterally, 5 out of 5 strength noted to bilateral upper and lower extremities Neuro: Alert oriented x3, motor sensory normal, There were no obvious focal neurologic abnormalities. Skin: No appreciable rash on exposed skin, skin is warm and dry. Psych: Mood and affect is normal, memory and judgment is normal. Core Measures ACS in differential dx? Yes CVA/TIA Diagnosis No Sepsis Present: No Sepsis Focused Exam Completed? No (Maame PACKER,Jason) Progress Differential Diagnosis: asthma, AMI, bronchitis, CHF, COPD, pulmonary embolism, pneumonia, pneumothorax, unstable angina Plan of Care: Orders Procedure Date/time Status Heart Healthy Diet 07/17 B Active CBC WITHOUT DIFFERENTIAL 07/17 0600 Active Intake & Output 07/16 1856 Active Pathway - chart 07/16 1652 Active Code Status 07/[address] in observation 07/16 1606 Active Vital Signs 07/16 1606 Active Code Status 07/16 1606 Complete Patient Data 07/16 1605 Active EKG 07/16 1500 Active Telemetry/Testing Consultant 07/16 1453 Active RAPID VIRAL INFLUENZA A 07/16 1342 Complete BLOOD CULTURE 07/16 1342 Active TROPONIN LEVEL 07/16 1342 Complete LACTIC ACID 07/16 1342 Complete COMPREHENSIVE METABOLIC PANEL 07/16 1342 Complete CBC WITHOUT DIFFERENTIAL 07/16 1342 Complete B-TYPE NATRIURETIC PEP (BNP) 07/16 1342 Complete EKG 07/16 1332 Active TRC EVALUATION (GEN) 07/16 UNK Active PEAK FLOW MEASUREMENT (GEN) 07/16 UNK Active CHEST PHYSICAL THERAPY (GEN) 07/16 UNK Active BIPAP 07/16 UNK Active House Staff 07/16 UNK Active VTE Mechanical Prophylaxis 07/16 UNK Active Current Medications Sig/Danni Start time Last Medication Dose Stop Time Status Admin Furosemide 60 MG Q48 07/18 1000 AC (Lasix) Atorvastatin Calcium 20 MG 1700 07/17 1700 AC (Lipitor) Azithromycin 500 MG DAILY 07/17 1000 AC (Zithromax) Dextrose/Water 250 ML (D5W) Docusate Sodium 100 MG DAILY 07/17 1000 AC (Colace) Metoprolol Succinate 25 MG DAILY 07/17 1000 AC (Toprol XL) Montelukast Sodium 10 MG DAILY 07/17 1000 AC (Singulair) Multivitamins 1 TAB DAILY 07/17 1000 AC Therapeutic (Theragran-M Vitamins Tabs) Nortriptyline HCl 10 MG DAILY 07/17 1000 AC (Aventyl 10MG - [place] Cap) Potassium Chloride 20 MEQ DAILY 07/17 1000 AC (K-Dur) Tiotropium [place] 1 PUF DAILY 07/17 1000 AC (Spiriva) Omeprazole 20 MG DAILY AC 07/17 0700 AC (Prilosec) Apixaban 5 MG BID 07/16 2199 AC (Eliquis) Ascorbic Acid 500 MG BID 07/16 2199 AC (Vitamin C) Baclofen 20 MG BID 07/16 2199 AC (Lioresal 10MG Tablet) Budesonide/ 2 PUF BID 07/16 220 AC Formoterol Fumarate (SYMBICORT) Gabapentin 600 MG BID 07/16 2199 AC (Neurontin) Guaifenesin 600 MG BID 07/16 2199 AC (Mucinex) Lactobacillus 1 CAP BID 07/16 2199 AC Acidophilus (Probiotic) Lorazepam 1 MG BID 07/16 2199 AC (Ativan) Methylprednisolone 40 MG Q8 07/16 2199 AC (Solumedrol) Rifampin 300 MG BID 07/16 2199 AC (Rifadin-Rimactane 300MG Cap) Sotalol HCl 80 MG BID 07/16 2199 AC (Betapace) Trazodone HCl 50 MG QPM 07/16 2200 AC (Desyrel) Oxycodone/ 1 TAB Q4H PRN 07/16 1745 AC Acetaminophen (Percocet) Acetaminophen 500 MG Q6P PRN 07/16 1730 AC (Tylenol) Albuterol Sulfate 2 PUF Q4 HRS NEEDED PRN 07/16 173 AC (Ventolin) Non-Formulary 0 SEE ADMIN CRITERIA 07/16 1729 UNVr Medication (NON FORMULARY) Laboratory Tests 07/16/17 1642: Lactic Acid Cancelled 07/16/17 1430: Anion Gap 6, Estimated GFR > 60, BUN/Creatinine Ratio 26.7 H, Glucose 152 H, Lactic Acid 1.0, Calcium 9.4, Total Bilirubin 0.4, AST 26, ALT 33, Alkaline Phosphatase 103, Troponin I < 0.01, Xmt-I-Ztedkimrcet Pept 588 H, Total Protein 6.7, Albumin 3.3 L, Globulin 3.4, Albumin/Globulin Ratio 1.0 L, CBC w Diff NO MAN DIFF REQ, RBC 4.36 L, MCV 92.3, MCH 29.1, MCHC 31.5 L, RDW 14.9 H, MPV 8.2, Gran % 79.8 H, Lymphocytes % 14.0 L, Monocytes % 4.9, Eosinophils % 1.1, Basophils % 0.2, Absolute Granulocytes 10.5 H, Absolute Lymphocytes 1.8, Absolute Monocytes 0.6, Absolute Eosinophils 0.1, Absolute Basophils 0 Microbiology 07/16 1430 BLOOD: Blood Culture - RECD 07/16 1420 NASOPHARYN: Influenza Virus A & B Rapid Smear - COMP 07/16 1420 BLOOD: Blood Culture - RECD Labs ordered old records reviewed patient is refusing ABG and declining breathing treatment when offered 3 L 96% currently, patient medicated with Solu- Medrol 125 IV Patient seen and evaluated by Dr. Sampson agrees with plan. I discussed with the patient at [facility] and his family is lab results x-ray findings and need for close observation which they're in agreement with IV steroids and breathing treatments pulmonology consult case d/w dr merida will place in obs, azithro 500mg iv ordered Diagnostic Imaging: Viewed by Me: Radiology Read. Discussed w/RAD: Radiology Read. Radiology Impression: PATIENT: ESTUARDO PEREZ PRESENT AGE: 67 PATIENT ACCOUNT NO: [id number] : 49 LOCATION: [facility] ORDERING PHYSICIAN: Jason PACKER SERVICE DATE: 07/16/17 EXAM TYPE: RAD - XRY- PORTABLE CHEST XRAY EXAMINATION: XR PORTABLE CHEST CLINICAL INFORMATION: Shortness of breath. COMPARISON: Chest done on 06/25/2017. TECHNIQUE: Portable frontal view of the chest was obtained. FINDINGS: Persistent stable nonspecific bibasilar airspace opacities are noted, may represent atelectasis, pleural parenchymal scar and less likely to be chronic infiltrate. The remainder of the lung sparks are clear. The heart size is within normal limits. There is no pleural effusion present. No significant change. IMPRESSION: No significant change since 06/25/2017. DICTATED BY: Simin Leary MD DATE/TIME DICTATED:1500 PLATE FURNACE OPERATOR:PAULO DATE/TIME TRANSCRIBED:07/16/171500 CONFIDENTIAL, DO NOT COPY WITHOUT APPROPRIATE AUTHORIZATION. <Electronically signed in Other Vendor System> SIGNED BY: Simin Leary MD 07/16/17 1524 Initial ED EKG: normal intervals, normal QRS complex, AFIB (Jason Diggs) Departure Departure Time of Disposition: 1603 Disposition: STILL A PATIENT Condition: Stable Referrals: Zach VOGEL,Dominguez Gray (PCP/Family) Departure Forms: Customer Survey General Discharge Information Observation Note Spoke With: Tom VOGEL,Ammon Gray Physician Advisor Notified: RUTHIE VOGEL,LEONARDO Galvez Place Patient In: Non-ED OBS Care Area Rationale for Observation: My rational for observation is as follows [resp tx, pulm consult, iv steroids, premature discharge would be medically harmful as pt isnot on baseline o2 level.hypoxic on ems arrival, (Jason Diggs) Departure Clinical Impression Primary Impression: COPD exacerbation PA/J2EE CONSULTANT Co-Sign Statement Statement: ED Attending supervision documentation- [X] I saw and evaluated the patient. I have also reviewed all the pertinent lab results and diagnostic results. I agree with the findings and the plan of care as documented in the PA's/J2EE CONSULTANT's documentation. [] I have reviewed the ED Record and agree with the PA's/J2EE CONSULTANT's documentation. [] Additions or exceptions (if any) to the PAs/J2EE CONSULTANT's note and plan are summarized below: [] 07/16/17 1:46 PM I have Seen and personally examined the patient, he came in and with difficulty breathing. He has a history of severe COPD. He was put on BiPAP by prehospital personnel. Currently he is awake alert and oriented 3. Oxygen saturation is greater than 95% on BiPAP. (Cruz Sampson DO) Critical Care Note Critical Care Note Critical Care Time: non-applicable (Jason Diggs) Critical Care Time: non-applicable (Jason Diggs)
[2017-07-16] MEDS ORDERED: HYDROXYZINE HCL10 M2 PO (13:45)
[2017-07-16] MEDS ORDERED: GABAPENTIN300 M2 PO (13:45)
[2017-07-16] MEDS ORDERED: NEXIUM40 M1 PO (13:47)
[2017-07-16 14:45] LABS: ABSOLUTE BASOPHIL COUNT 0 /CUMM (0.0-0.2); ABSOLUTE EOSINOPHIL COUNT 0.1 /CUMM (0.0-0.7); ABSOLUTE GRANULOCYTE CT 10.5 /CUMM (1.4-6.5); ABSOLUTE LYMPH COUNT 1.8 /CUMM (1.2-3.4); ABSOLUTE MONOCYTE COUNT 0.6 /CUMM (0.10-0.60); BASOPHIL % 0.2 % (0.0-2.0); EOSINOPHIL % 1.1 % (0-5); GRANULOCYTE % 79.8 % (42.2-75.2); HEMATOCRIT 40.3 % (42-52); MEAN CORPUSCULAR HGB 29.1 PG (27.0-31.0); MEAN CORPUSCULAR HGB CONC 31.5 G/DL (33.0-37.0); MEAN CORPUSCULAR VOLUME 92.3 FL (80.0-94.0); MEAN PLATELET VOLUME 8.2 FL (7.4-10.4); PLATELET COUNT 290 /CUMM (130-400); RBC DISTRIBUTION WIDTH 14.9 % (11.5-14.5); RED BLOOD CELL CT 4.36 /CUMM (4.70-6.10); WHITE BLOOD CELL COUNT 13.1 /CUMM (4.8-10.8)
--- NOTE | 2017-07-16 15:24 | RADIOLOGY REPORT ---
EXAMINATION: XR PORTABLE CHEST CLINICAL INFORMATION: Shortness of breath. COMPARISON: Chest done on 06/25/2017. TECHNIQUE: Portable frontal view of the chest was obtained. FINDINGS: Persistent stable nonspecific bibasilar airspace opacities are noted, may represent atelectasis, pleural parenchymal scar and less likely to be chronic infiltrate. The remainder of the lung sparks are clear. The heart size is within normal limits. There is no pleural effusion present. No significant change. IMPRESSION: No significant change since 06/25/2017.
--- NOTE | 2017-07-16 16:47 | History & Physical ---
Jason Gordon 07/16/17 9214: General Information and HPI MD Statement: I have seen and personally examined ESTUARDO PEREZ and documented this H&P. The patient is a 67 year old M who presented with a patient stated chief complaint of [shortness of breath]. 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 This patient was admitted on June 23 and discharged on June 27 for COPD exacerbation and is reporting to have been on steroid taper which she completed 5 days ago and his symptoms have been stable. Patient was brought in by ambulance after being noted to develop shortness of breath. This patient is supposed to be on BiPAP at night for obstructive sleep apnea but per information from the patient the payer is not satisfied with initial workup showing obstructive sleep apnea and because of that the patient was required to stop using BiPAP and sleep on nasal cannula with continuous pulse oximetry. She started doing the JELANI testing exercise yesterday evening and he believes to due to not using his BiPAP he worked up this morning with shortness of breath. Patient denies any fevers or chills he denies any abnormal cough citing that he has been having his baseline cough throughout without any changes. He has no anesthetic contacts. He denies any paroxysmal nocturnal dyspnea orthopnea or swelling of lower limbs. Allergies/Medications Allergies: Coded Allergies: heparin (Intermediate, SWELLING, RASH 03/07/17) vancomycin (Intermediate, HIVES, SKIN CRACKES, TURNS RED, SWELLS AND PEELS 03/07) warfarin (From COUMADIN) (Intermediate, RASH 03/07/17) Past History Travel History Traveled to [place] past 21 day No Medical History Neurological: C6-7 ABSCESS PARAPLEGIA EENT: NONE Cardiovascular: AFIB, hypertension, hyperlipidemia, myocardial infarction Respiratory: asthma, COPD, OXYGEN DEPEND 2L Gastrointestinal: NONE Hepatic: NONE Renal: neurogenic bladder Musculoskeletal: PARAPLEGIA R/T ABSCESS Psychiatric: anxiety Endocrine: NONE Blood Disorders: NONE Cancer(s): NONE ILLUSIONIST/Reproductive: NONE History of MRSA: Yes History of VRE: No History of CDIFF: No Influenza Vaccine: 03/07/17 Surgical History Surgical History: non-contributory Past Family/Social History Family History Relations & Conditions if any Relation not specified for: *No pertinent family history Psychosocial History Who Do You Live With? 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 Ambulation: wheelchair IADLs Independent: shopping, housework, finances, food prep, telephone, transportation , medication admin. Review of Systems Review of Systems Constitutional: Denies: chills, fever. EENTM: Denies: hearing changes, nasal congestion. Cardiovascular: Denies: chest pain, palpitations. Respiratory: Reports: see HPI, cough, short of breath. GI: Denies: no symptoms. Genitourinary: Denies: no symptoms. Musculoskeletal: Reports: see HPI. All Other Systems: Reviewed and Negative Exam & Diagnostic Data Last 24 Hrs of Vital Signs/I&O Vital Signs Date Time Temp Pulse Resp B/P B/P Pulse O2 O2 Flow FiO2 Mean Ox Delivery Rate 07/16 1648 96 Nasal 3.0L Cannula 07/16 1338 98.5 110 161/74 99 CPAP Physical Exam General Appearance Alert, Oriented X3, Cooperative, Moderate Distress Skin No Rashes Skin Temp/Moisture Exam: Warm/Dry Sepsis Skin Exam (color): Normal for Ethnicity HEENT Atraumatic, Mucous Membr. moist/pink Neck Supple, No JVD, short wide neck Cardiovascular Regular Rate, Normal S1, Normal S2 Lungs Bilateral wheezes in both upper and lower lobes, transmitted sounds Abdomen Normal Bowel Sounds, Soft, No Tenderness Neurological Normal Speech Extremities No Clubbing, No Cyanosis, No Edema Sepsis Peripheral Pulse Location: Dorsalis Pedis Sepsis Peripheral Pulse Exam: Normal Sepsis Cap Refill Exam: <2 Sec Last 24 Hrs of Labs/Bryan: Laboratory Tests 07/16/17 1642: Lactic Acid Cancelled 07/16/17 1430: Anion Gap 6, Estimated GFR > 60, BUN/Creatinine Ratio 26.7 H, Glucose 152 H, Lactic Acid 1.0, Calcium 9.4, Total Bilirubin 0.4, AST 26, ALT 33, Alkaline Phosphatase 103, Troponin I < 0.01, [id number]-I-Qjeqpauryfm Pept 588 H, Total Protein 6.7, Albumin 3.3 L, Globulin 3.4, Albumin/Globulin Ratio 1.0 L, CBC w Diff NO MAN DIFF REQ, RBC 4.36 L, MCV 92.3, MCH 29.1, MCHC 31.5 L, RDW 14.9 H, MPV 8.2, Gran % 79.8 H, Lymphocytes % 14.0 L, Monocytes % 4.9, Eosinophils % 1.1, Basophils % 0.2, Absolute Granulocytes 10.5 H, Absolute Lymphocytes 1.8, Absolute Monocytes 0.6, Absolute Eosinophils 0.1, Absolute Basophils 0 Microbiology 07/16 1430 BLOOD: Blood Culture - RECD 07/16 142 NASOPHARYN: Influenza Virus A & B Rapid Smear - COMP 07/16 1419 BLOOD: Blood Culture - RECD Diagnostic Data CXR Results No significant changes Assessment/Plan Assessment: This is a 67yo M w/ PMH of COPD (on 2L O2/Bipap), BLE edema, JELANI, HTN, HLD, A- fib on eliquis, neurogenic bladder, depression, CAD s/p stent placement, IVC filter, 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 Patient is reported to have stopped the using his BiPAP so that he can have further evaluation for obstructive sleep apnea overnight prior to presentation to the ER. He denies any fever or chills or cough out of baseline. His initial blood work is being baseline parameters with only slight increase in WBC which is well with seeing his previous values. This patient might be having a COPD exacerbation which has been worsened by his trial experiment of not using BiPAP to document obstructive sleep apnea. This patient when off BiPAP has recorded multiple previous admissions in the past. COPD exacerbation JELANI assessment while off BiPAP Admit to general medicine floor Vital signs every shift TRC nebulization around the clock The shunt has received IV Solu-Medrol 125 mg Will continue with 40 mg every 8 hours IV as azithromycin 500 mg daily Chest physical therapy, feels very junky BiPAP at night per home settings As Ranked By This Provider Problem List: 1. COPD (chronic obstructive pulmonary disease) 2. Acute hypercapnic respiratory failure due to obstructive sleep apnea 3. COPD exacerbation Core Measures/Misc (02/06) Acute Coronary Syndrome ACS Diagnosis: No Congestive Heart Failure Congestive Heart Failure Diagnosis No Cerebrovascular Accident CVA/TIA Diagnosis: No VTE (View Protocol) VTE Risk Factors Age>40 No Mechanical VTE Prophylaxis d/t Other No VTE Pharm Prophylaxis d/t Other Sepsis (View protocol) Sepsis Present: No Resident Review Statement Resident Statement: examined this patient, Refer to my detailed review above Ammon Santos 07/16/17 2088: General Information and HPI Allergies/Medications Home Med list Acetaminophen (Tylenol Arthritis) 650 MG TABLET.ER 1 TAB PO Q6-PRN PRN PAIN ( Reported) Albuterol Sulfate (Ventolin Hfa) 90 MCG HFA.AER.AD 2 PUF INH AD PRN COPD ( Reported) Apixaban (Eliquis) 5 MG TABLET 5 MG PO BID atrial fibrillation Ascorbate Calcium (Vitamin C) 500 MG TABLET 1 TAB PO BID SUPPLEMENT (Reported ) Atomoxetine HCl (Strattera) 40 MG CAPSULE 1 CAP PO QAM MENTAL HEALTH ( Reported) Baclofen 20 MG TABLET 1 TAB PO BID MUSCLE RELAXER (Reported) Bisacodyl (Dulcolax) 10 MG SUPP.RECT 1 SUP RC Q48 GI (Reported) Budesonide/Formoterol Fumarate (Symbicort 80-4.5 Mcg Inhaler) 80 MCG-4.5 MCG/ ACTUATION HFA.AER.AD 2 PUF INH BID COPD (Reported) Docusate Sodium (Stool Softener) 100 MG CAPSULE 1 CAP PO DAILY STOOL SOFTENER (Reported) Doxycycline Hyclate 100 MG CAPSULE 1 CAP PO BID infection (Reported) Esomeprazole (Nexium) 40 MG CAPSULE.DR 1 CAP PO DAILY GI (Reported) Evolocumab (Repatha Sureclick) 140 MG/ML PEN.INJCTR 1 ML SC Q 2 WEEKS CHOLESTEROL (Reported) Furosemide 20 MG TABLET 3 TAB PO Q48 DIURETIC (Reported) Gabapentin 300 MG CAPSULE 2 CAP PO BID NERVE PAIN (Reported) Guaifenesin (Mucinex) 600 MG TAB.ER.12H 1 TAB PO BID CONGESTION (Reported) Hydroxyzine HCl (hydrOXYzine HCl) 10 MG TABLET 1 TAB PO BID PRN ANXIETY ( Reported) Lactobacillus Acidophilus (Acidophilus) 1 EACH CAPSULE 1 CAP PO BID PROBIOTIC (Reported) Lorazepam 1 MG TABLET 1 TAB PO BID ANXIETY (Reported) Magnesium Oxide (Magnesium) 400 MG CAPSULE 1 CAP PO 0600 SUPPLEMENT (Reported ) Metoprolol Succ XL (Toprol XL) 25 MG TAB 1 TAB PO DAILY HEART (Reported) Montelukast Sodium (Singulair) 10 MG TABLET 1 TAB PO DAILY ALLERGIES ( Reported) Multivitamin (Daily Value) 1 EACH TABLET 1 TAB PO DAILY VITAMIN SUPPORT ( Reported) Nortriptyline HCl 10 MG CAPSULE 1 CAP PO DAILY UNKNOWN (Reported) Omeprazole 20 MG CAPSULE.DR 1 CAP PO DAILY ACID REFLUX (Reported) Oxycodone HCl/Acetaminophen (Oxycodone-Acetaminophen 5-325) 5 MG-325 MG TABLET 1 TAB PO Q4H PRN PAIN (Reported) Potassium Chloride 20 MEQ TAB.ER.PRT 1 TAB PO DAILY SUPPLEMENT (Reported) Rifampin (Rifadin) 300 MG CAPSULE 300 MG PO BID MRSA (Reported) Rosuvastatin Calcium (Crestor) 5 MG TABLET 1 TAB PO DAILY CHOLESTEROL ( Reported) Sotalol (Betapace) 80 MG TABLET 80 MG PO BID AARYTHMIAS Tiotropium Dev[place] (Spiriva) 18 MCG CAP.W.DEV 1 CAP INH DAILY BREATHING PROBLEMS (Reported) Trazodone HCl 50 MG TABLET 1 TAB PO QPM SLEEP (Reported) Attending MD Review Statement Attending Statement Attending MD Statement: examined this patient, discuss w/resident/PA/LINER INSTALLER, agreed w/resident/PA/LINER INSTALLER, reviewed EMR data (avail), discussed with nursing Attending Assessment/Plan: Pt being placed in observation status for COPD exacerbation. Pt in ER was hypoxic to 83% on 2 L and is being treated for acute hypoxic resp failure secondary to copd exacerbation. cont on iv steroids and zithromax. bipap at night. d/w pt and pts roommate at bedside the care plan.
[2017-07-16 21:04] VITALS: BP 138/72
[2017-07-17 06:48] VITALS: BP 150/86
--- NOTE | 2017-07-17 08:14 | PN- Housestaff ---
See Addendum Subjective Follow-up For: COPD Subjective: No overnight events. Feels much better this morning, breathing improved. No other issues. Review of Systems Constitutional: Reports: no symptoms. EENTM: Reports: no symptoms. Cardiovascular: Reports: no symptoms. Respiratory: Reports: see HPI. Gastrointestinal: Reports: no symptoms. Genitourinary: Reports: no symptoms. Musculoskeletal: Reports: no symptoms. Skin: Reports: no symptoms. Neurological/Psychological: Reports: no symptoms. Hematologic/Endocrine: Reports: no symptoms. Immunologic/Allergic: Reports: no symptoms. Objective Last 24 Hrs of Vital Signs/I&O Vital Signs Date Time Temp Pulse Resp B/P B/P Pulse O2 O2 Flow FiO2 Mean Ox Delivery Rate 07/17 0648 98.5 80 20 150/86 94 07/17 0608 Nasal 2.0L Cannula 07/17 0000 BIPAP 2.0L 07/16 2342 Nasal 2.0L Cannula 07/16 2230 98 BIPAP 2.0L 07/16 2104 99.1 106 20 138/72 95 Nasal 2.0L Cannula 07/162 97 Nasal 2.0L Cannula 07/16 2009 97.7 104 31 143/72 96 Non 2.0L ReBreather 07/16 1835 98.3 103 50 182/68 96 Nasal 2.0L Cannula 07/16 1648 96 Nasal 3.0L Cannula 07/16 1402 96 Nasal 4.0L Cannula 07/16 1338 98.5 110 161/74 99 CPAP Intake & Output 07/17 1600 07/17 0800 07/17 0000 Intake Total 250 Output Total 350 350 Balance -350 -100 Intake, IV 250 Number 1 Bowel Movements Output, Urine 350 350 Patient 102.654 kg Weight Physical Exam General Appearance: Alert, Oriented X3, Cooperative, No Acute Distress Cardiovascular: Regular Rate, Normal S1, Normal S2 Lungs: mild wheezing and rhonci Abdomen: Normal Bowel Sounds, Soft, No Tenderness Extremities: No Edema, Normal Pulses, No Tenderness/Swelling Current Medications: Current Medications Sig/Danni Start time Last Medication Dose Route Stop Time Status Admin Acetaminophen 500 MG Q6P PRN 07/16 1730 AC PO Acetylcysteine 2 ML BID 07/17 1000 AC INH Albuterol Sulfate 3 ML EVERY 4 HRS/AWAKE 07/17 0800 AC 07/17 INH 0607 Albuterol Sulfate 2 PUF Q4 HRS NEEDED PRN 07/16 1730 AC INH Albuterol Sulfate 3 ML ONCE ONE 07/16 1645 DC 07/16 INH 07/16 1646 1643 Apixaban 5 MG BID 07/16 2200 AC 07/16 PO 2314 Ascorbic Acid 500 MG BID 07/16 2200 AC 07/16 PO 2312 Atorvastatin Calcium 20 MG 1700 07/17 1700 AC PO Azithromycin 500 MG DAILY 07/17 1000 AC Dextrose/Water 250 ML IV Azithromycin 500 MG ONCE ONE 07/16 1615 DC 07/16 Dextrose/Water 250 ML IV 07/16 1714 1750 Baclofen 20 MG BID 07/160 AC 07/16 PO 2314 Budesonide/ 2 PUF BID 07/16 2199 AC 07/16 Formoterol Fumarate INH 2313 Docusate Sodium 100 MG DAILY 07/17 1000 AC PO Furosemide 60 MG Q48 07/18 1000 AC PO Gabapentin 600 MG BID 07/160 AC 07/16 PO 2313 Guaifenesin 600 MG BID 07/160 AC 07/16 PO 2314 Ipratropium [place] 2.5 ML ONCE ONE 07/16 1645 DC 07/16 INH 07/16 1646 1643 Lactobacillus 1 CAP BID 07/16 2199 AC 07/16 Acidophilus PO 2314 Lorazepam 1 MG BID 07/16 2199 AC 07/16 PO 2312 Methylprednisolone 40 MG Q8 07/16 2200 AC 07/17 IV 0531 Methylprednisolone 0 .STK-MED ONE 07/16 1415 DC .ROUTE Methylprednisolone 125 MG ONCE ONE 07/16 1345 DC 07/16 IV 07/16 1346 1417 Metoprolol Succinate 25 MG DAILY 07/17 1000 AC PO Montelukast Sodium 10 MG DAILY 07/17 1000 AC PO Multivitamins 1 TAB DAILY 07/17 1000 AC Therapeutic PO Non-Formulary 0 SEE ADMIN CRITERIA 07/16 1730 UNVr Medication ANY Nortriptyline HCl 10 MG DAILY 07/17 1000 AC PO Omeprazole 20 MG DAILY 07/17 1000 DC PO Omeprazole 40 MG DAILY AC 07/17 0700 DC PO Omeprazole 20 MG DAILY AC 07/17 0700 AC 07/17 PO 0537 Oxycodone/ 1 TAB Q4H PRN 07/16 1745 AC 07/17 Acetaminophen PO 0537 Potassium Chloride 20 MEQ DAILY 07/17 1000 AC PO Rifampin 300 MG BID 07/16 2199 AC 07/16 PO 2312 Sotalol HCl 80 MG BID 07/16 2199 AC 07/16 PO 2315 Tiotropium [place] 1 PUF DAILY 07/17 1000 AC INH Trazodone HCl 50 MG QPM 07/16 2199 AC 07/16 PO 2315 Last 24 Hrs of Lab/Bryan Results Last 24 Hrs of Labs/Mics: Laboratory Tests 07/17/17 0713: CBC w Diff Pending, WBC Pending, RBC Pending, Hgb Pending, Hct Pending, MCV Pending, MCH Pending, MCHC Pending, RDW Pending, Plt Count Pending, MPV Pending 07/16/17 1642: Lactic Acid Cancelled 07/16/17 1430: Anion Gap 6, Estimated GFR > 60, BUN/Creatinine Ratio 26.7 H, Glucose 152 H, Lactic Acid 1.0, Calcium 9.4, Total Bilirubin 0.4, AST 26, ALT 33, Alkaline Phosphatase 103, Troponin I < 0.01, Esh-J-Hvxyqjggziy Pept 588 H, Total Protein 6.7, Albumin 3.3 L, Globulin 3.4, Albumin/Globulin Ratio 1.0 L, CBC w Diff NO MAN DIFF REQ, RBC 4.36 L, MCV 92.3, MCH 29.1, MCHC 31.5 L, RDW 14.9 H, MPV 8.2, Gran % 79.8 H, Lymphocytes % 14.0 L, Monocytes % 4.9, Eosinophils % 1.1, Basophils % 0.2, Absolute Granulocytes 10.5 H, Absolute Lymphocytes 1.8, Absolute Monocytes 0.6, Absolute Eosinophils 0.1, Absolute Basophils 0 Microbiology 07/16 1430 BLOOD: Blood Culture - RECD 07/16 142 NASOPHARYN: Influenza Virus A & B Rapid Smear - COMP 07/16 142 BLOOD: Blood Culture - RECD Assessment/Plan Assessment: This is a 67yo M w/ PMH of COPD (on 2L O2/Bipap), BLE edema, JELANI, HTN, HLD, A- fib on eliquis, neurogenic bladder, depression, CAD s/p stent placement, IVC filter, 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 Problem List: 1. COPD exacerbation 2. JELANI assessment while off BiPAP Vital signs every shift TRC nebulization around the clock IV Solu-Medrol 40 mg every 12H IV as azithromycin 500 mg daily swiching to PO Chest physical therapy, feels very junky BiPAP at night per home settings On 2L home O2 Continue home meds Wheelchair bound DVT ppx with apixiban Heart healthy diet Full code Problem List: 1. COPD exacerbation Pain Ratin Pain Location: no Pain Goal: Remain pain free Pain Plan: no Tomorrow's Labs & Rationales: see a/p
[2017-07-17 08:25] LABS: ABSOLUTE BASOPHIL COUNT 0 /CUMM (0.0-0.2); ABSOLUTE EOSINOPHIL COUNT 0 /CUMM (0.0-0.7); ABSOLUTE GRANULOCYTE CT 9.6 /CUMM (1.4-6.5); ABSOLUTE MONOCYTE COUNT 0.6 /CUMM (0.10-0.60); BASOPHIL % 0.2 % (0.0-2.0); EOSINOPHIL % 0.2 % (0-5); GRANULOCYTE % 78.5 % (42.2-75.2); MEAN CORPUSCULAR HGB 29.9 PG (27.0-31.0); MEAN CORPUSCULAR HGB CONC 32.4 G/DL (33.0-37.0); MEAN CORPUSCULAR VOLUME 92.2 FL (80.0-94.0); MEAN PLATELET VOLUME 8.4 FL (7.4-10.4); PLATELET COUNT 283 /CUMM (130-400); RBC DISTRIBUTION WIDTH 15.3 % (11.5-14.5); RED BLOOD CELL CT 3.71 /CUMM (4.70-6.10); WHITE BLOOD CELL COUNT 12.3 /CUMM (4.8-10.8)
[2017-07-17 09:57] LABS: HEMATOCRIT 34.3 % (42-52)
--- NOTE | 2017-07-17 14:56 | Patient Discharge Instructions ---
Discharge Instructions General Discharge Information You were seen/treated for: COPD exacerbation, Watch for these problems: Severe shortness of breathing, dizziness, lightheadedness, chest pain, palpitation, heart racing, worsening of any other problems Special Instructions: Please follow with you. Significant amount of discharge. Diet Continue normal diet: No Recommended Diet: Heart Healthy Activity Full Activity/No Limits: No Activity Self Limited: Yes Acute Coronary Syndrome Inclusion Criteria At DC or during hospital stay patient has or had the following: ACS DIAGNOSIS No Discharge Core Measures Meds if any: Prescribed or Continued at Discharge Meds if any: NOT Prescribed or Continued at Discharge Congestive Heart Failure Inclusion Criteria At DC or during hospital stay patient has or had the following: CHF DIAGNOSIS No Discharge Core Measures Meds if any: Prescribed or Continued at Discharge Meds if any: NOT Prescribed or Continued at Discharge Cerebrovascular accident Inclusion Criteria At DC or during hospital stay patient has or had the following: CVA/TIA Diagnosis No Discharge Core Measures Meds if any: Prescribed or Continued at Discharge Meds if any: NOT Prescribed or Continued at Discharge Venous thromboembolism Inclusion Criteria VTE Diagnosis No VTE Type NONE VTE Confirmed by (Test) NONE Discharge Core Measures - Per Current guidelines, there needs to be overlap - treatment for the first 5 days of Warfarin therapy. - If discharged on Warfarin prior to 5 days of - overlap therapy, the patient will need to be - assessed for post discharge needs including - *Post discharge parental anticoagulation - *Warfarin and/or parental anticoagulation education - *Follow up date to check INR post discharge At least 5 days overlap therapy as Inpatient No Meds if any: Prescribed or Continued at Discharge Note: Overlap Therapy is Warfarin and Anticoagulant Meds if any: NOT Prescribed or Continued at Discharge
[2017-07-17 15:16] VITALS: BP 136/74
[2017-07-17] MEDS ORDERED: AZITHROMYCIN250 M1 PO (15:46)
[2017-07-17] MEDS ORDERED: PREDNISONE10 M2 PO (15:46)
== END 2017-07-17 17:21 | disposition home health service (06) ==
LOC: ERH 13:29 → ERHI 16:06 → ENRESERV 18:06 → ENTRNSPT 19:52 → EDTRNSPTSTS 20:07 → 2NB 20:14 → CMPTRNSPT 20:27 → 2NB 07-17 17:21
PROVIDERS: Physician Assistant Medical; Preventive Medicine Public Health & General Preventive Medicine
DX: J44.1 Chronic obstructive pulmonary disease with (acute) exacerbation (principal); J96.01 Acute respiratory failure with hypoxia; G47.33 Obstructive sleep apnea (adult) (pediatric); I10 Essential (primary) hypertension; E78.5 Hyperlipidemia, unspecified; I48.91 Unspecified atrial fibrillation; Z79.01 Long term (current) use of anticoagulants; N31.9 Neuromuscular dysfunction of bladder, unspecified; F32.9 Major depressive disorder, single episode, unspecified; I25.10 Atherosclerotic heart disease of native coronary artery without angina pectoris; Z95.5 Presence of coronary angioplasty implant and graft; G82.20 Paraplegia, unspecified; Z86.14 Personal history of Methicillin resistant Staphylococcus aureus infection; I25.2 Old myocardial infarction; Z99.81 Dependence on supplemental oxygen; F41.9 Anxiety disorder, unspecified
CPT/HCPCS: 1263; 1271; 1328; 1530; 6040; 36592; 71045; 87040; 87804; 87804-59; 93005; 93010; 96374; G0378; J0456; J2920; J2930; J3490; J7060; J7608

== ENCOUNTER 2017-10-01 08:47 | Inpatient (IN) | payer OTHER, MEDICARE ==
[~2017-10-01] VITALS: Ht 175.3 cm; Wt 101.2 kg
[~2017-10-01 08:47] MED LIST changes: +CEFUROXIME500 MG PO; +HYDROXYZINE HCL10 M2 PO
--- NOTE | 2017-10-01 09:40 | ED GI/GU/ABDOMINAL COMPLAINT ---
History of Present Illness General Chief Complaint: Male Genitourinary Problems Stated Complaint: BLD IN BEAVERS Source: patient Exam Limitations: no limitations Vital Signs & Intake/Output Vital Signs & Intake/Output Vital Signs Date Time Temp Pulse Resp B/P B/P Pulse O2 O2 Flow FiO2 Mean Ox Delivery Rate 10/01 1222 97.0 80 20 126/63 98 Nasal 2.0L Cannula 10/01 1043 97.0 84 20 115/56 97 Nasal 2.0L Cannula 10/01 0915 94 Nasal 2.0L Cannula 10/01 0857 97.1 90 16 123/75 94 Room Air Room Air Allergies Coded Allergies: heparin (Intermediate, SWELLING, RASH 09/05/17) vancomycin (Intermediate, HIVES, SKIN CRACKES, TURNS RED, SWELLS AND PEELS 09/05) warfarin (From COUMADIN) (Intermediate, RASH 09/05/17) Reconcile Medications Albuterol Sulfate (Ventolin Hfa) 90 MCG HFA.AER.AD 2 PUF INH AD PRN COPD ( Reported) Apixaban (Eliquis) 5 MG TABLET 5 MG PO BID atrial fibrillation Ascorbate Calcium (Vitamin C) 500 MG TABLET 1 TAB PO BID SUPPLEMENT (Reported ) Atomoxetine HCl (Strattera) 40 MG CAPSULE 1 CAP PO QAM MENTAL HEALTH ( Reported) Baclofen 20 MG TABLET 1 TAB PO BID MUSCLE RELAXER (Reported) Bisacodyl (Dulcolax) 10 MG SUPP.RECT 1 SUP RC Q48 GI (Reported) Budesonide/Formoterol Fumarate (Symbicort 80-4.5 Mcg Inhaler) 80 MCG-4.5 MCG/ ACTUATION HFA.AER.AD 2 PUF INH BID COPD (Reported) Cefuroxime Axetil (Cefuroxime) 500 MG TABLET 1 TAB PO BID UROLOGIC Docusate Sodium (Stool Softener) 100 MG CAPSULE 1 CAP PO DAILY STOOL SOFTENER (Reported) Doxycycline Hyclate 100 MG CAPSULE 1 CAP PO BID infection (Reported) Evolocumab (Repatha Sureclick) 140 MG/ML PEN.INJCTR 1 ML SC Q 2 WEEKS CHOLESTEROL (Reported) Furosemide 20 MG TABLET 3 TAB PO Q48 DIURETIC (Reported) Gabapentin 300 MG CAPSULE 2 CAP PO BID NERVE PAIN (Reported) Guaifenesin (Mucinex) 600 MG TAB.ER.12H 1 TAB PO BID CONGESTION (Reported) Hydroxyzine HCl (hydrOXYzine HCl) 10 MG TABLET 1 TAB PO BID PRN ANXIETY ( Reported) Lactobacillus Acidophilus (Acidophilus) 1 EACH CAPSULE 1 CAP PO BID PROBIOTIC (Reported) Magnesium Oxide (Magnesium) 400 MG CAPSULE 1 CAP PO 0600 SUPPLEMENT (Reported ) Metoprolol Succ XL (Toprol XL) 25 MG TAB 1 TAB PO DAILY HEART (Reported) Montelukast Sodium (Singulair) 10 MG TABLET 1 TAB PO DAILY ALLERGIES ( Reported) Multivitamin (Daily Value) 1 EACH TABLET 1 TAB PO DAILY VITAMIN SUPPORT ( Reported) Nortriptyline HCl 10 MG CAPSULE 1 CAP PO DAILY mental health (Reported) Omeprazole 20 MG CAPSULE.DR 1 CAP PO DAILY ACID REFLUX (Reported) Oxycodone HCl/Acetaminophen (Oxycodone-Acetaminophen 5-325) 5 MG-325 MG TABLET 1 TAB PO Q4H PRN PAIN (Reported) Potassium Chloride 20 MEQ TAB.ER.PRT 1 TAB PO DAILY SUPPLEMENT (Reported) Rifampin (Rifadin) 300 MG CAPSULE 300 MG PO BID MRSA (Reported) Sotalol (Betapace) 80 MG TABLET 80 MG PO BID AARYTHMIAS Tiotropium [place] (Spiriva) 18 MCG CAP.W.DEV 1 CAP INH DAILY BREATHING PROBLEMS (Reported) Triage Note: TRIAGE: 67 Y/O MALE JACQUELINE FROM HOME C/O BLOOD CLOT TO BEAVERS CATHETER. WAS JUST AT [facility] THIS MORNING FOR SAME - REPORTS HAD CBI "ALL NIGHT." Triage Nurses Notes Reviewed? yes Onset: Abrupt Duration: day(s): Timing: recent history No Modifying Factors: none HPI: 59-year-old male comes into emergency room with problems with his Beavers catheter. Patient was seen here this morning. He has had a indwelling Beavers catheter for about one year. He is on eliquis for atrial fibrillation. He reports that last night his home health aide accidentally yanked on the catheter. He started to experience some fleeting the hours later and lower abdominal pressure. He was seen here last night and had a continuous bladder irrigation and the Beavers catheter was irrigated. It was draining appropriately. There were clots last night with the clots resolved and he went home. Patient reports that he started to feel pressure and pain this morning again and the catheter was not draining. He comes in for further evaluation. (Guanakito Conrad) Past History Travel History Traveled to [place] past 21 day No Medical History Any Pertinent Medical History? 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 No (Guanakito Conrad) Review of Systems Review of Systems Constitutional: Reports: no symptoms. EENTM: Reports: no symptoms. Respiratory: Reports: no symptoms. Cardiovascular: Reports: no symptoms. GI: Reports: no symptoms. Genitourinary: Reports: see HPI. Musculoskeletal: Reports: no symptoms. Skin: Reports: no symptoms. Neurological/Psychological: Reports: no symptoms. Hematologic/Endocrine: Reports: no symptoms. Immunologic/Allergic: Reports: no symptoms. All Other Systems: Reviewed and Negative (Guanakito Conrad) Physical Exam Physical Exam General Appearance: alert, awake Head: atraumatic Eyes: Bilateral: normal appearance. Ears, Nose, Throat, Mouth: hearing grossly normal, moist mucous membrane Neck: normal inspection Respiratory: no respiratory distress Gastrointestinal: soft Back: decreased range of motion Neurologic/Psych: awake, alert Skin: intact Core Measures ACS in differential dx? No Sepsis Present: No Sepsis Focused Exam Completed? No (Guanakito Conrad) Progress Differential Diagnosis: ureterolithiasis, urinary retention, urethritis, UTI/ pyelo, anemia Initial ED EKG: none (Guanakito Conrad) Plan of Care: Orders Procedure Date/time Status Add-on Test (ER Only) 10/01 1342 Active CBC WITHOUT DIFFERENTIAL 10/01 0924 Complete BASIC METABOLIC PANEL 10/01 0824 Complete Current Medications Sig/Danni Start time Last Medication Dose Stop Time Status Admin Phenazopyridine HCl 200 MG ONCE ONE 10/01 1400 UNVr (Pyridium) 10/01 1401 Laboratory Tests 10/01/17 0931: CBC w Diff NO MAN DIFF REQ, RBC 3.60 L, MCV 89.6, MCH 28.8, MCHC 32.2 L, RDW 14.0, MPV 8.4, Gran % 74.9, Lymphocytes % 16.4 L, Monocytes % 6.7, Eosinophils % 1.8, Basophils % 0.2, Absolute Granulocytes 9.4 H, Absolute Lymphocytes 2.1, Absolute Monocytes 0.8 H, Absolute Eosinophils 0.2, Absolute Basophils 0 10/01/17 0924: Anion Gap 6, Estimated GFR > 60, BUN/Creatinine Ratio 33.3 H, Glucose 146 H, Calcium 8.8 (Charu VOGEL,Cruz De Dios) Departure Departure Disposition: STILL A PATIENT Condition: Stable Clinical Impression Primary Impression: Clot hematuria Referrals: Dominguez Serrano MD (PCP/Family) Departure Forms: Customer Survey General Discharge Information Admission Note Spoke With: Yuly June MD Documentation of Exam: Documentation of any treatments & extenuating circumstances including Concerns Regarding Discharge (functional status, medication knowledge or non-compliance, living conditions, etc.) that warrant an admission rather than observation: Patient will require serial CBCs. Urology consultation. Patient has failed outpatient treatment. Patient will continue to require catheter care with continuous bladder irrigation as well as irrigation of the bladder directly with julissa syringe for clots. (Guanakito Conrad) PA/AZURE PRINCIPAL SOLUTION SPECIALIST Co-Sign Statement Statement: ED Attending supervision documentation- [x] I saw and evaluated the patient. I have also reviewed all the pertinent lab results and diagnostic results. I agree with the findings and the plan of care as documented in the PA's/AZURE PRINCIPAL SOLUTION SPECIALIST's documentation. Patient presents for evaluation of blood in his urine. Physical examination reveals a comfortable appearing gentleman with a benign abdominal exam. [] I have reviewed the ED Record and agree with the PA's/AZURE PRINCIPAL SOLUTION SPECIALIST's documentation. [] Additions or exceptions (if any) to the PAs/AZURE PRINCIPAL SOLUTION SPECIALIST's note and plan are summarized below: [] (Charu VOGEL,Cruz De Dios)
[2017-10-01 09:46] LABS: ABSOLUTE BASOPHIL COUNT 0 /CUMM (0.0-0.2); ABSOLUTE EOSINOPHIL COUNT 0.2 /CUMM (0.0-0.7); ABSOLUTE GRANULOCYTE CT 9.4 /CUMM (1.4-6.5); ABSOLUTE LYMPH COUNT 2.1 /CUMM (1.2-3.4); ABSOLUTE MONOCYTE COUNT 0.8 /CUMM (0.10-0.60); BASOPHIL % 0.2 % (0.0-2.0); EOSINOPHIL % 1.8 % (0-5); GRANULOCYTE % 74.9 % (42.2-75.2); HEMATOCRIT 32.2 % (42-52); MEAN CORPUSCULAR HGB 28.8 PG (27.0-31.0); MEAN CORPUSCULAR HGB CONC 32.2 G/DL (33.0-37.0); MEAN CORPUSCULAR VOLUME 89.6 FL (80.0-94.0); MEAN PLATELET VOLUME 8.4 FL (7.4-10.4); PLATELET COUNT 258 /CUMM (130-400); WHITE BLOOD CELL COUNT 12.5 /CUMM (4.8-10.8)
--- NOTE | 2017-10-01 14:18 | History & Physical ---
[facility] 1418: General Information and HPI MD Statement: I have seen and personally examined ESTUARDO PEREZ and documented this H&P. The patient is a 67 year old M who presented with a patient stated chief complaint of [pain lower abdomen and hematuria]. 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 Patient was in a usual state of health until yesterday morning, his Li was apparently pulled accidentally by his health aide. Patient didn't have any symptoms. Over the night patient started having blood in his urine with clots and with pain in the lower abdomen. Patient came to ED had his Li catheter was changed and he was sent home after giving continuous bladder irrigation. His urine cleared. Patient was sent from this morning. Apparently,, patient again developed blood in his urine and also around his penis and came to [place] ER 2 hours after discharge. He denies any pain abdomen, nausea, vomiting, back pain, chest pain, shortness of breath, weakness, dizziness. Patient had MRSA infection in the spine following which developed neurogenic bladder in 2007 and has been on Li since then. He shouldn't follows up with Dr. Polk. Recently he had a urinary tract infection was treated with Cipro and Augmentin in August 2017. He changes his Li catheter once a month. Patient has constipation and gets supposed to every other day. Patient follows with Dr. Bustillos, Dr. Watson as outpatient. At home patient uses wheelchair Allergies/Medications Allergies: Coded Allergies: heparin (Intermediate, SWELLING, RASH 09/05/17) vancomycin (Intermediate, HIVES, SKIN CRACKES, TURNS RED, SWELLS AND PEELS 09/05) warfarin (From COUMADIN) (Intermediate, RASH 09/05/17) Home Med list Albuterol Sulfate (Ventolin Hfa) 90 MCG HFA.AER.AD 2 PUF INH AD PRN COPD ( Reported) Apixaban (Eliquis) 5 MG TABLET 5 MG PO BID atrial fibrillation Ascorbate Calcium (Vitamin C) 500 MG TABLET 1 TAB PO BID SUPPLEMENT (Reported ) Atomoxetine HCl (Strattera) 40 MG CAPSULE 1 CAP PO QAM MENTAL HEALTH ( Reported) Baclofen 20 MG TABLET 1 TAB PO BID MUSCLE RELAXER (Reported) Bisacodyl (Dulcolax) 10 MG SUPP.RECT 1 SUP RC Q48 GI (Reported) Budesonide/Formoterol Fumarate (Symbicort 80-4.5 Mcg Inhaler) 80 MCG-4.5 MCG/ ACTUATION HFA.AER.AD 2 PUF INH BID COPD (Reported) Cefuroxime Axetil (Cefuroxime) 500 MG TABLET 1 TAB PO BID UROLOGIC Docusate Sodium (Stool Softener) 100 MG CAPSULE 1 CAP PO DAILY STOOL SOFTENER (Reported) Doxycycline Hyclate 100 MG CAPSULE 1 CAP PO BID infection (Reported) Evolocumab (Repatha Sureclick) 140 MG/ML PEN.INJCTR 1 ML SC Q 2 WEEKS CHOLESTEROL (Reported) Furosemide 20 MG TABLET 3 TAB PO Q48 DIURETIC (Reported) Gabapentin 300 MG CAPSULE 2 CAP PO BID NERVE PAIN (Reported) Guaifenesin (Mucinex) 600 MG TAB.ER.12H 1 TAB PO BID CONGESTION (Reported) Hydroxyzine HCl (hydrOXYzine HCl) 10 MG TABLET 1 TAB PO BID PRN ANXIETY ( Reported) Lactobacillus Acidophilus (Acidophilus) 1 EACH CAPSULE 1 CAP PO BID PROBIOTIC (Reported) Magnesium Oxide (Magnesium) 400 MG CAPSULE 1 CAP PO 0600 SUPPLEMENT (Reported ) Metoprolol Succ XL (Toprol XL) 25 MG TAB 1 TAB PO DAILY HEART (Reported) Montelukast Sodium (Singulair) 10 MG TABLET 1 TAB PO DAILY ALLERGIES ( Reported) Multivitamin (Daily Value) 1 EACH TABLET 1 TAB PO DAILY VITAMIN SUPPORT ( Reported) Nortriptyline HCl 10 MG CAPSULE 1 CAP PO DAILY mental health (Reported) Omeprazole 20 MG CAPSULE.DR 1 CAP PO DAILY ACID REFLUX (Reported) Oxycodone HCl/Acetaminophen (Oxycodone-Acetaminophen 5-325) 5 MG-325 MG TABLET 1 TAB PO Q4H PRN PAIN (Reported) Potassium Chloride 20 MEQ TAB.ER.PRT 1 TAB PO DAILY SUPPLEMENT (Reported) Rifampin (Rifadin) 300 MG CAPSULE 300 MG PO BID MRSA (Reported) Sotalol (Betapace) 80 MG TABLET 80 MG PO BID AARYTHMIAS Tiotropium [place] (Spiriva) 18 MCG CAP.W.DEV 1 CAP INH DAILY BREATHING PROBLEMS (Reported) Compliance With Home Meds: GOOD Past History Travel History Traveled to [place] past 21 day No Medical History Neurological: C6-7 ABSCESS PARAPLEGIA EENT: NONE Cardiovascular: AFIB, hypertension, hyperlipidemia, myocardial infarction Respiratory: asthma, COPD, OXYGEN DEPEND 2L Gastrointestinal: NONE Hepatic: NONE Renal: neurogenic bladder Musculoskeletal: PARAPLEGIA R/T ABSCESS Psychiatric: anxiety Endocrine: NONE Blood Disorders: NONE Cancer(s): NONE 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 Home Who Do You Live With? 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 yes Functional Ability ADLs Needs Assist: dressing, eating, toileting, bathing. Ambulation: wheelchair IADLs Independent: shopping, housework, finances, food prep, telephone, transportation , medication admin. Review of Systems Review of Systems Constitutional: Reports: no symptoms. Cardiovascular: Reports: no symptoms. Respiratory: Reports: no symptoms. GI: Reports: no symptoms. Genitourinary: Reports: no symptoms. Musculoskeletal: Reports: no symptoms. Exam & Diagnostic Data Last 24 Hrs of Vital Signs/I&O Vital Signs Date Time Temp Pulse Resp B/P B/P Pulse O2 O2 Flow FiO2 Mean Ox Delivery Rate 10/01 1700 98.5 85 18 132/84 96 10/01 1622 98.1 85 22 151/69 99 Nasal 2.0L Cannula 10/01 1410 99.0 88 20 128/68 97 Nasal 2.0L Cannula 10/01 1222 97.0 80 20 126/63 98 Nasal 2.0L Cannula 10/01 1043 97.0 84 20 115/56 97 Nasal 2.0L Cannula 10/01 0915 94 Nasal 2.0L Cannula 10/01 0857 97.1 90 16 123/75 94 Room Air Room Air Intake & Output 10/01 1600 10/01 0800 10/01 0000 Intake Total Output Total 1000 Balance -1000 Output, Urine 1000 Patient 223 lb Weight Weight Reported by Patient Measurement Method Physical Exam General Appearance Alert, Oriented X3, Cooperative, No Acute Distress Cardiovascular Regular Rate, Normal S1, Normal S2, No Murmurs Lungs Clear to Auscultation Abdomen Soft, No Tenderness, No Hepatospenomegaly Neurological Normal Speech, Strength at 5/5 X4 Ext, Normal Tone, Sensation Intact Extremities No Cyanosis, No Edema, Normal Pulses Vascular Normal Pulses Last 24 Hrs of Labs/Bryan: Laboratory Tests 10/01/1731: CBC w Diff NO MAN DIFF REQ, RBC 3.60 L, MCV 89.6, MCH 28.8, MCHC 32.2 L, RDW 14.0, MPV 8.4, Gran % 74.9, Lymphocytes % 16.4 L, Monocytes % 6.7, Eosinophils % 1.8, Basophils % 0.2, Absolute Granulocytes 9.4 H, Absolute Lymphocytes 2.1, Absolute Monocytes 0.8 H, Absolute Eosinophils 0.2, Absolute Basophils 0 10/01/17923: Anion Gap 6, Estimated GFR > 60, BUN/Creatinine Ratio 33.3 H, Glucose 146 H, Calcium 8.8 Assessment/Plan Assessment: 67yo M w/ PMH of COPD (on 2L O2/Bipap), BLE edema, JELANI, HTN, HLD, A-fib on eliquis, neurogenic bladder status post Li catheter, depression, CAD s/p stent placement, IVC filter, 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 Patient admitted to [facility] for further evaluation and management Admission vitals Temperature 97--- 99, pulse rate 88, respiratory rate 20, blood pressure 128/68, saturation 97 on 2 L of nasal oxygen. WBC 12.5, hemoglobin 10.4, platelet count 258, sodium 137, potassium 4.1, BUN 20 , creatinine 0.6, calcium 8.8, glucose 146, Urine culture 09/14/2017 growing Proteus mirabilis. Patient was on Augmentin and Cipro for the same. patient has grown MRSA 10 years ago in blood. ED treatment Albuterol, Percocet, phenazopyridine Assessment and plan 1. Hematuria secondary due to trauma 2. Chronic medical conditions-COPD, JELANI, HTN, HLD, A-fib * Admitted in GEN med. * CBC monitoring every 12. * Irrigate Li with continuous bladder irrigation. Urology consult. Patient apixaban held. We will get cardiology on board to help us with Anticoagulation * Diet-heart heal thy diet * Continue all his home medication except apixaban. * Code-DNR/DNI Home meds Albuterol Apixaban 5 mg twice a day ON HOLD Vitamin C Atomoxetine 40 mg Baclofen 20 mg twice a day Symbicort Dicyclomine evolocumab Lasix 20 Gabapentin 300 Mucinex Metoprolol 25 Montelukast 10 Percocet Nortriptyline 10 mg Rifampin 300 Sotalol 80 Spiriva As Ranked By This Provider Problem List: 1. Hematuria Core Measures/Misc (02/06) Acute Coronary Syndrome ACS Diagnosis: No Congestive Heart Failure Congestive Heart Failure Diagnosis No Cerebrovascular Accident CVA/TIA Diagnosis: No VTE (View Protocol) VTE Risk Factors Age>40 No Mechanical VTE Prophylaxis d/t Other No VTE Pharm Prophylaxis d/t Other Sepsis (View protocol) Sepsis Present: No Yuly June MD 10/01/17 1634: Attending MD Review Statement Attending Statement Attending MD Statement: examined this patient, discuss w/resident/PA/SEISMOGRAPH COMPUTER, agreed w/resident/PA/SEISMOGRAPH COMPUTER, reviewed EMR data (avail), discussed with nursing, discussed with case mgmt, reviewed images, amended to note Attending Assessment/Plan: 67 y/o M with pmh sig for AFIB on Eliquis, hypertension, hyperlipidemia, myocardial infarction, chronic respiratory failure, history of cervical spine abscess now paraplegic, history of neurogenic bladder with chronic Li who was seen in the emergency room last night with hematuria after accidentally his rn informatics pulled the Li. Patient received CBI and was discharged home. This morning he woke up again with hematuria also presented to the emergency room. He was completing of some lower abdominal pressure and pain. He was having bright red hematuria. CBI was started again and now patient has light pinkish to orange colored urine. He does have a small drop in his H&H today. His abdominal pain has better. He does have chronic back pain. Vital Signs Date Time Temp Pulse Resp B/P B/P Pulse O2 O2 Flow FiO2 Mean Ox Delivery Rate 10/01 1622 98.1 85 22 151/69 99 Nasal 2.0L Cannula 10/01 1410 99.0 88 20 128/68 97 Nasal 2.0L Cannula 10/01 1222 97.0 80 20 126/63 98 Nasal 2.0L Cannula 10/01 1043 97.0 84 20 115/56 97 Nasal 2.0L Cannula 10/01 0915 94 Nasal 2.0L Cannula 10/01 0857 97.1 90 16 123/75 94 Room Air Room Air on exam; aox3, nad. cv; s1, s2, irregular. resp; clear abd; soft, nt, bs+ ext; 1+ edema Laboratory Tests 10/01 10/01 0931 0924 Chemistry Sodium (137 - 145 mmol/L) 137 Potassium (3.5 - 5.1 mmol/L) 4.1 Chloride (98 - 107 mmol/L) 98 Carbon Dioxide (22 - 30 mmol/L) 33 H Anion Gap (5 - 16) 6 BUN (9 - 20 mg/dL) 20 Creatinine (0.7 - 1.2 mg/dL) 0.6 L Estimated GFR (>60 ml/min) > 60 BUN/Creatinine Ratio (7 - 25 %) 33.3 H Glucose (65 - 99 mg/dL) 146 H Calcium (8.4 - 10.2 mg/dL) 8.8 Hematology CBC w Diff NO MAN DIFF REQ WBC (4.8 - 10.8 /CUMM) 12.5 H RBC (4.70 - 6.10 /CUMM) 3.60 L Hgb (14.0 - 18.0 G/DL) 10.4 L Hct (42 - 52 %) 32.2 L MCV (80.0 - 94.0 FL) 89.6 MCH (27.0 - 31.0 PG) 28.8 MCHC (33.0 - 37.0 G/DL) 32.2 L RDW (11.5 - 14.5 %) 14.0 Plt Count (130 - 400 /CUMM) 258 MPV (7.4 - 10.4 FL) 8.4 Gran % (42.2 - 75.2 %) 74.9 Lymphocytes % (20.5 - 51.1 %) 16.4 L Monocytes % (1.7 - 9.3 %) 6.7 Eosinophils % (0 - 5 %) 1.8 Basophils % (0.0 - 2.0 %) 0.2 Absolute Granulocytes (1.4 - 6.5 /CUMM) 9.4 H Absolute Lymphocytes (1.2 - 3.4 /CUMM) 2.1 Absolute Monocytes (0.10 - 0.60 /CUMM) 0.8 H Absolute Eosinophils (0.0 - 0.7 /CUMM) 0.2 Absolute Basophils (0.0 - 0.2 /CUMM) 0 A/P: 67 y/o M with pmh sig for AFIB on Eliquis, hypertension, hyperlipidemia, myocardial infarction, chronic respiratory failure, history of cervical spine abscess now paraplegic, history of neurogenic bladder admitted with traumatic hematuria and mild acute blood loss anemia. Pt akilah be admitted to general medicine floor. Pt will receive CBI. Monitor H&H. Type and Cross. Hold Eliquis and consult cardiology with hx of Afib. Urology shouukiley see the pt. Continue the rest of the medications. DVT px; ALPS. DNR/I. 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 He came into the ER and was given CBI with temporary clearing of the urine but hematuria resumed at home after a few hours and he reported back to the ER and was admitted. Assessment 1. Traumatic hematuria secondary to anticoagulation with Eliquis 2. A. fib on eloquent 3. Neurogenic bladder with chronic indwelling Li's catheter 4. 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 Hypertension, hyperlipidemia, CAD Plan -Admit to the general medicine floor -Serial CBCs -Type and cross 2 units of blood -Neurologic consult -Continue continuous CBI -Hold Eliquis for now -Cardiology consult on management of anticoagulation -TRC nebs -Guaifenesin for cough -Continue BiPAP and oxygen as needed -Continue his other important home medications -DNR/DNI -Heart healthy diet -Alps for DVT prophylaxis
[2017-10-01 17:00] VITALS: BP 132/84
--- NOTE | 2017-10-01 19:18 | Cons- Urology ---
General Information and HPI Consulting Request Date of Consult: 10/01/17 Requested By: Yuly June MD Reason for Consult: Gross hematuria. Neurogenic bladder Source of Information: patient, old records Exam Limitations: no limitations History of Present Illness: 67 year old male with multiple comorbidities including A-fib for which he is anticoaglulated with eloquis. 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 He is followed by Dr Polk. His neurogenic bladder is managed with an indwelling li. Yesterday the li was inadvertently pulled on after which he developed gross hematuria. The li stopped draining at that point. He presented to the ER and a 3-way li was placed. Some clots were irrigated from the bladder and CBI started. The urine did not clear sufficiently in the ER to allow discharge home and therefore he was admitted for management of his gross hematuria. Allergies/Medications Allergies: Coded Allergies: heparin (Intermediate, SWELLING, RASH 09/05/17) vancomycin (Intermediate, HIVES, SKIN CRACKES, TURNS RED, SWELLS AND PEELS 09/05) warfarin (From COUMADIN) (Intermediate, RASH 09/05/17) Home Med List: Albuterol Sulfate (Ventolin Hfa) 90 MCG HFA.AER.AD 2 PUF INH AD PRN COPD ( Reported) Apixaban (Eliquis) 5 MG TABLET 5 MG PO BID atrial fibrillation Ascorbate Calcium (Vitamin C) 500 MG TABLET 1 TAB PO BID SUPPLEMENT (Reported ) Atomoxetine HCl (Strattera) 40 MG CAPSULE 1 CAP PO QAM MENTAL HEALTH ( Reported) Baclofen 20 MG TABLET 1 TAB PO BID MUSCLE RELAXER (Reported) Bisacodyl (Dulcolax) 10 MG SUPP.RECT 1 SUP RC Q48 GI (Reported) Budesonide/Formoterol Fumarate (Symbicort 80-4.5 Mcg Inhaler) 80 MCG-4.5 MCG/ ACTUATION HFA.AER.AD 2 PUF INH BID COPD (Reported) Cefuroxime Axetil (Cefuroxime) 500 MG TABLET 1 TAB PO BID UROLOGIC Docusate Sodium (Stool Softener) 100 MG CAPSULE 1 CAP PO DAILY STOOL SOFTENER (Reported) Doxycycline Hyclate 100 MG CAPSULE 1 CAP PO BID infection (Reported) Evolocumab (Repatha Sureclick) 140 MG/ML PEN.INJCTR 1 ML SC Q 2 WEEKS CHOLESTEROL (Reported) Furosemide 20 MG TABLET 3 TAB PO Q48 DIURETIC (Reported) Gabapentin 300 MG CAPSULE 2 CAP PO BID NERVE PAIN (Reported) Guaifenesin (Mucinex) 600 MG TAB.ER.12H 1 TAB PO BID CONGESTION (Reported) Hydroxyzine HCl (hydrOXYzine HCl) 10 MG TABLET 1 TAB PO BID PRN ANXIETY ( Reported) Lactobacillus Acidophilus (Acidophilus) 1 EACH CAPSULE 1 CAP PO BID PROBIOTIC (Reported) Magnesium Oxide (Magnesium) 400 MG CAPSULE 1 CAP PO 0600 SUPPLEMENT (Reported ) Metoprolol Succ XL (Toprol XL) 25 MG TAB 1 TAB PO DAILY HEART (Reported) Montelukast Sodium (Singulair) 10 MG TABLET 1 TAB PO DAILY ALLERGIES ( Reported) Multivitamin (Daily Value) 1 EACH TABLET 1 TAB PO DAILY VITAMIN SUPPORT ( Reported) Nortriptyline HCl 10 MG CAPSULE 1 CAP PO DAILY mental health (Reported) Omeprazole 20 MG CAPSULE.DR 1 CAP PO DAILY ACID REFLUX (Reported) Oxycodone HCl/Acetaminophen (Oxycodone-Acetaminophen 5-325) 5 MG-325 MG TABLET 1 TAB PO Q4H PRN PAIN (Reported) Potassium Chloride 20 MEQ TAB.ER.PRT 1 TAB PO DAILY SUPPLEMENT (Reported) Rifampin (Rifadin) 300 MG CAPSULE 300 MG PO BID MRSA (Reported) Sotalol (Betapace) 80 MG TABLET 80 MG PO BID AARYTHMIAS Tiotropium [place] (Spiriva) 18 MCG CAP.W.DEV 1 CAP INH DAILY BREATHING PROBLEMS (Reported) Current Medications: Current Medications Sig/Danni Start time Last Medication Dose Route Stop Time Status Admin Acetaminophen 650 MG Q6P PRN 10/01 1500 AC PO Albuterol Sulfate 3 ML EVERY 4 HRS/AWAKE 10/01 2000 AC 10/01 INH 1813 Albuterol Sulfate 3 ML ONCE ONE 10/01 1330 DC 10/01 INH 10/01 1331 1343 Albuterol Sulfate 3 ML ONCE ONE 10/01 0945 DC 10/01 INH 10/01 0946 1005 Baclofen 20 MG BID 10/01 2100 AC PO Bisacodyl 10 MG Q48 10/03 0900 AC WI Budesonide/ 2 PUF BID 10/01 2100 AC Formoterol Fumarate INH Docusate Sodium 100 MG DAILY 10/01 1602 AC PO Doxycycline Hyclate 100 MG BID 10/01 2100 AC PO Gabapentin 600 MG BID 10/01 2100 AC PO Guaifenesin 600 MG BID 10/01 2100 AC PO Hydroxyzine HCl 10 MG BID PRN 10/01 1615 AC PO Lidocaine 1 JEANNETTE ONCE ONE 10/01 1315 DC 10/01 TOP 10/01 1316 1245 Lidocaine 0 .STK-MED ONE 10/01 1249 DC TOP Metoprolol Succinate 25 MG DAILY 10/01 1607 AC PO Montelukast Sodium 10 MG DAILY 10/01 1607 AC PO Nortriptyline HCl 10 MG DAILY 10/02 0900 AC PO Omeprazole 20 MG DAILY 10/02 0900 AC PO Oxycodone/ 1 TAB ONCE ONE 10/01 1700 DC 10/01 Acetaminophen PO 10/01 1701 1723 Oxycodone/ 0 .STK-MED ONE 10/01 1308 DC Acetaminophen PO Oxycodone/ 2 TAB ONCE ONE 10/01 1300 DC 10/01 Acetaminophen PO 10/01 1301 1305 Phenazopyridine HCl 0 .STK-MED ONE 10/01 1413 DC PO Phenazopyridine HCl 200 MG ONCE ONE 10/01 1400 DC 10/01 PO 10/01 1401 1409 Rifampin 300 MG BID 10/01 2100 AC PO Sodium Chloride 1,000 ML .Q10H 10/01 1500 AC 10/01 IV 1458 Sotalol HCl 80 MG BID 10/01 2100 AC PO Tiotropium [place] 1 PUF DAILY 10/01 1608 AC INH Past History Medical History Blood Transfusion Hx: Yes Neurological: C6-7 ABSCESS PARAPLEGIA EENT: NONE Cardiovascular: AFIB, hypertension, hyperlipidemia, myocardial infarction Respiratory: asthma, COPD, OXYGEN DEPEND 2L Gastrointestinal: NONE Hepatic: NONE Renal: neurogenic bladder Musculoskeletal: PARAPLEGIA R/T ABSCESS Psychiatric: anxiety Endocrine: NONE Blood Disorders: NONE Cancer(s): 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 Home Who Do You Live With? 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 yes Functional Ability ADLs Needs Assist: dressing, eating, toileting, bathing. Ambulation: wheelchair IADLs Independent: shopping, housework, finances, food prep, telephone, transportation , medication admin. Exam & Diagnostic Data Vital Signs and I&O Vital Signs Date Time Temp Pulse Resp B/P B/P Pulse O2 O2 Flow FiO2 Mean Ox Delivery Rate 10/01 1700 98.5 85 18 132/84 96 10/01 1635 93 Nasal 2.0L Cannula 10/01 1622 98.1 85 22 151/69 99 Nasal 2.0L Cannula 10/01 1410 99.0 88 20 128/68 97 Nasal 2.0L Cannula 10/01 1222 97.0 80 20 126/63 98 Nasal 2.0L Cannula 10/01 1043 97.0 84 20 115/56 97 Nasal 2.0L Cannula 10/01 0915 94 Nasal 2.0L Cannula 10/01 0857 97.1 90 16 123/75 94 Room Air Room Air Intake & Output 10/01 1600 10/01 0800 10/01 0000 09/30 1600 09/30 0800 09/30 0000 Intake Total Output Total 1000 Balance -1000 Output, Urine 1000 Patient 223 lb Weight Weight Reported by Patient Measurement Method Lying in bed. No acute distress Back: No CVA tenderness Abd: soft and non tender Genitalia: 22 fr 3-way li in place. Some bleeding around catheter. CBI running at slow rate and drainage is light pink Laboratory Tests 10/01 10/01 0931 0924 Chemistry Sodium (137 - 145 mmol/L) 137 Potassium (3.5 - 5.1 mmol/L) 4.1 Chloride (98 - 107 mmol/L) 98 Carbon Dioxide (22 - 30 mmol/L) 33 H Anion Gap (5 - 16) 6 BUN (9 - 20 mg/dL) 20 Creatinine (0.7 - 1.2 mg/dL) 0.6 L Estimated GFR (>60 ml/min) > 60 BUN/Creatinine Ratio (7 - 25 %) 33.3 H Glucose (65 - 99 mg/dL) 146 H Calcium (8.4 - 10.2 mg/dL) 8.8 Hematology CBC w Diff NO MAN DIFF REQ WBC (4.8 - 10.8 /CUMM) 12.5 H RBC (4.70 - 6.10 /CUMM) 3.60 L Hgb (14.0 - 18.0 G/DL) 10.4 L Hct (42 - 52 %) 32.2 L MCV (80.0 - 94.0 FL) 89.6 MCH (27.0 - 31.0 PG) 28.8 MCHC (33.0 - 37.0 G/DL) 32.2 L RDW (11.5 - 14.5 %) 14.0 Plt Count (130 - 400 /CUMM) 258 MPV (7.4 - 10.4 FL) 8.4 Gran % (42.2 - 75.2 %) 74.9 Lymphocytes % (20.5 - 51.1 %) 16.4 L Monocytes % (1.7 - 9.3 %) 6.7 Eosinophils % (0 - 5 %) 1.8 Basophils % (0.0 - 2.0 %) 0.2 Absolute Granulocytes (1.4 - 6.5 /CUMM) 9.4 H Absolute Lymphocytes (1.2 - 3.4 /CUMM) 2.1 Absolute Monocytes (0.10 - 0.60 /CUMM) 0.8 H Absolute Eosinophils (0.0 - 0.7 /CUMM) 0.2 Absolute Basophils (0.0 - 0.2 /CUMM) 0 Assessment/Plan Assessment/Plan Imp: 1. Gross hematuria due to li trauma in setting of being anticoagulated 2. Neurogenic bladder and paraplegia secondary to spinal cord abscess 3. Multiple comorbidities Plan: 1. Would send urine culture if not done already 2. Continue slow CBI as you are doing 3. Have nurses manually irrigate li prn no drainage 4. Hold anticoagulation if safe to do so 5. Will follow Consult Acknowledgment - Thank you for your consult request.
[2017-10-01 23:00] VITALS: BP 153/73
[2017-10-02 06:04] VITALS: BP 132/74
--- NOTE | 2017-10-02 06:12 | PN- Housestaff ---
Julio VOGEL,Vivien 10/02/17 0611: Subjective Follow-up For: Hematuria secondary due to trauma Subjective: Patient seen and examined at bedside. No overnight events. No complaints. He is draining clear urine. Denies lower abdominal pain, fever, chills. Review of Systems Constitutional: Reports: no symptoms, see HPI. Objective Last 24 Hrs of Vital Signs/I&O Vital Signs Date Time Temp Pulse Resp B/P B/P Pulse O2 O2 Flow FiO2 Mean Ox Delivery Rate 10/02 1139 96 Nasal 2.0L Cannula 10/02 0945 74 132/74 10/02 0604 98.0 74 20 132/74 91 10/02 0559 97 Nasal 2.0L Cannula 10/02 0558 98 10/02 0401 98 10/02 0034 86 95 10/02 0000 BIPAP 10/01 2300 98.3 93 20 153/73 100 Nasal 2.0L Cannula 10/01 1910 Nasal 2.0L Cannula 10/01 1700 98.5 85 18 132/84 96 10/01 1635 93 Nasal 2.0L Cannula 10/01 1635 93 Nasal 2.0L Cannula 10/01 1622 98.1 85 22 151/69 99 Nasal 2.0L Cannula 10/01 1410 99.0 88 20 128/68 97 Nasal 2.0L Cannula 10/01 1222 97.0 80 20 126/63 98 Nasal 2.0L Cannula Intake & Output 10/02 1600 10/02 0800 10/02 0000 Intake Total 920 640 Output Total 600 700 Balance 320 -60 Intake, IV 800 400 Intake, Oral 120 240 Number 0 0 Bowel Movements Output, Urine 600 700 Patient 223 lb Weight Weight Reported by Patient Measurement Method Physical Exam General Appearance: Alert, Oriented X3, Cooperative, No Acute Distress Cardiovascular: Regular Rate, Normal S1, Normal S2, No Murmurs Lungs: Normal Air Movement Abdomen: Soft, No Tenderness, No Hepatospenomegaly Neurological: Normal Speech, Strength at 5/5 X4 Ext, Sensation Intact Extremities: No Cyanosis, No Edema, Normal Pulses Current Medications: Current Medications Sig/Danni Start time Last Medication Dose Route Stop Time Status Admin Acetaminophen 650 MG Q6P PRN 10/01 1500 AC / PO 2140 Albuterol Sulfate 2 PUF Q4-PRN PRN 10/01 2215 AC INH Albuterol Sulfate 3 ML EVERY 4 HRS/AWAKE 10/01 2000 AC 10/02 INH 1136 Albuterol Sulfate 3 ML ONCE ONE 10/01 1330 DC 10/01 INH 10/01 1331 1343 Baclofen 20 MG BID 10/01 2100 AC 10/02 PO 0944 Bisacodyl 10 MG Q48 10/03 0900 AC MT Budesonide/ 2 PUF BID 10/01 2100 AC 10/02 Formoterol Fumarate INH 0945 Docusate Sodium 100 MG DAILY 10/02 09 AC PO Docusate Sodium 100 MG DAILY 10/01 1602 CAN PO 10/01 2359 Doxycycline Hyclate 100 MG BID 10/01 2100 AC 10/02 PO 0944 Gabapentin 600 MG BID 10/01 2100 AC 10/02 PO 0944 Guaifenesin 10 ML Q6P PRN 10/01 2115 AC PO Guaifenesin 600 MG BID 10/01 2100 AC 10/02 PO 0944 Hydroxyzine HCl 10 MG BID PRN 10/01 1615 AC PO Lidocaine 1 JEANNETTE ONCE ONE 10/01 1315 DC 10/01 TOP 10/01 1316 1245 Lidocaine 0 .STK-MED ONE 10/01 1249 DC TOP Metoprolol Succinate 25 MG DAILY 10/02 0900 AC 10/02 PO 0945 Metoprolol Succinate 25 MG DAILY 10/01 1607 CAN PO Montelukast Sodium 10 MG 2100 10/01 2300 AC 10/01 PO 2335 Montelukast Sodium 10 MG DAILY 10/01 1607 CAN PO Nortriptyline HCl 10 MG DAILY 10/02 0900 AC 10/02 PO 0944 Omeprazole 20 MG DAILY 10/02 0900 AC 10/02 PO 0944 Oxycodone/ 1 TAB ONCE ONE 10/02 0930 DC 10/02 Acetaminophen PO 10/02 0931 0942 Oxycodone/ 1 TAB ONCE ONE 10/01 1700 DC 10/01 Acetaminophen PO 10/01 1701 1723 Oxycodone/ 0 .STK-MED ONE 10/01 1308 DC Acetaminophen PO Oxycodone/ 2 TAB ONCE ONE 10/01 1300 DC 10/01 Acetaminophen PO 10/01 1301 1305 Phenazopyridine HCl 0 .STK-MED ONE 10/01 1413 DC PO Phenazopyridine HCl 200 MG ONCE ONE 10/01 1400 DC 05/12 PO 10/01 1401 1409 Rifampin 300 MG BID 10/01 2100 AC 10/02 PO 0944 Sodium Chloride 1,000 ML .Q10H 10/01 1500 AC 10/02 IV 0130 Sotalol HCl 80 MG BID 10/01 2100 AC 10/02 PO 0945 Tiotropium [place] 1 PUF DAILY 10/02 0900 AC 10/02 INH 0943 Tiotropium [place] 1 PUF DAILY 10/01 1608 CAN INH Last 24 Hrs of Lab/Bryan Results Last 24 Hrs of Labs/Mics: Laboratory Tests 10/02/17 0815: Anion Gap 6, Estimated GFR > 60, BUN/Creatinine Ratio 28.0 H, CBC w Diff NO MAN DIFF REQ, RBC 3.48 L, MCV 90.0, MCH 28.9, MCHC 32.2 L, RDW 14.8 H, MPV 8.4, Gran % 67.1, Lymphocytes % 20.3 L, Monocytes % 8.5, Eosinophils % 4.1, Basophils % 0, Absolute Granulocytes 5.4, Absolute Lymphocytes 1.6, Absolute Monocytes 0.7 H, Absolute Eosinophils 0.3, Absolute Basophils 0 Microbiology 10/02 09 LOWER RESP: Respiratory Culture - ORD 10/02 953 LOWER RESP: Gram Stain - ORD 10/02 06 URINE ROUT: Urine Culture - RECD Assessment/Plan Assessment: 67yo M w/ PMH of COPD (on 2L O2/Bipap), BLE edema, JELANI, HTN, HLD, A-fib on eliquis, neurogenic bladder status post Orellana catheter, depression, CAD s/p stent placement, IVC filter, 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 Patient admitted to [facility] for further evaluation and management Assessment and plan 1. Hematuria secondary due to trauma 2. Chronic medical conditions-COPD, JELANI, HTN, HLD, A-fib * Patient draining clear urine. Seen by urology who suggested to discontinue continuous bladder irrigation. * CBC monitoring every 12. * Patient apixaban held as per urology. We will get cardiology on board to help us with Anticoagulation * Diet-heart healthy diet * Continue all his home medication except apixaban. * Code-DNR/DNI Problem List: 1. Hematuria Pain Ratin Pain Location: none Pain Goal: Remain pain free Pain Plan: tylenol Tomorrow's Labs & Rationales: jazmin June MD,Yuly 10/02/17 1349: Attending MD Review Statement Attending Statement Attending MD Statement: examined this patient, discuss w/resident/PA/HOME HEALTH LVN, agreed w/resident/PA/HOME HEALTH LVN, reviewed EMR data (avail), discussed with nursing, discussed with case mgmt, amended to note Attending Assessment/Plan: Patient seen and examined, denies any complaints. His CBI is discontinued as of this morning. So far his urine is dark orange in color. There is no significant amount of hematuria going on. His vital signs are stable and his H& H as well as creatinine remained stable. His Elqiuis is still on hold. We have requested cardiology consult the cause of his history of A. fib and and coagulation now that is being held. Urology recommends to continue to hold his " for another 24 hours to his hematuria is completely cleared. If there is any recurrence of hematuria, CBI should be restarted. I have stopped his IV fluids as his creatinine and blood pressure are stable. Continue the rest of the management. If hematuria remained stable to nightly can be discharged home tomorrow.
--- NOTE | 2017-10-02 09:24 | PN- Urology ---
Subjective Subjective: Patient comfortable. No distress Objective Vital Signs and I&Os Vital Signs Date Time Temp Pulse Resp B/P B/P Pulse O2 O2 Flow FiO2 Mean Ox Delivery Rate 10/02 0604 98.0 74 20 132/74 91 10/02 0559 97 Nasal 2.0L Cannula 10/02 0558 98 10/02 0401 98 10/02 0034 86 95 10/02 0000 BIPAP 10/01 2300 98.3 93 20 153/73 100 Nasal 2.0L Cannula 10/01 1910 Nasal 2.0L Cannula 10/01 1700 98.5 85 18 132/84 96 10/01 1635 93 Nasal 2.0L Cannula 10/01 1635 93 Nasal 2.0L Cannula 10/01 1622 98.1 85 22 151/69 99 Nasal 2.0L Cannula 10/01 1410 99.0 88 20 128/68 97 Nasal 2.0L Cannula 10/01 1222 97.0 80 20 126/63 98 Nasal 2.0L Cannula 10/01 1043 97.0 84 20 115/56 97 Nasal 2.0L Cannula Intake & Output 10/02 1600 10/02 0800 10/02 0000 10/01 1600 10/01 0800 10/01 0000 Intake Total 920 640 Output Total 383 797 5460 Balance Intake, IV 800 400 Intake, Oral 120 240 Number 0 0 Bowel Movements Output, Urine 721 543 4722 Patient 223 lb 223 lb Weight Weight Reported by Patient Reported by Patient Measurement Method Nurse irrigated clots from bladder last night and this AM Abd: soft and non tender Genitalia: 3-way li in place. CBI on very slow rate. Drainage is clear Laboratory Tests 10/02 10/01 10/01 0815 0931 0924 Chemistry Sodium (137 - 145 mmol/L) Pending 137 Potassium (3.5 - 5.1 mmol/L) Pending 4.1 Chloride (98 - 107 mmol/L) Pending 98 Carbon Dioxide (22 - 30 mmol/L) Pending 33 H Anion Gap (5 - 16) Pending 6 BUN (9 - 20 mg/dL) Pending 20 Creatinine (0.7 - 1.2 mg/dL) Pending 0.6 L Estimated GFR (>60 ml/min) > 60 BUN/Creatinine Ratio (7 - 25 %) Pending 33.3 H Glucose (65 - 99 mg/dL) 146 H Calcium (8.4 - 10.2 mg/dL) 8.8 Hematology CBC w Diff Pending NO MAN DIFF REQ WBC (4.8 - 10.8 /CUMM) Pending 12.5 H RBC (4.70 - 6.10 /CUMM) Pending 3.60 L Hgb (14.0 - 18.0 G/DL) Pending 10.4 L Hct (42 - 52 %) Pending 32.2 L MCV (80.0 - 94.0 FL) Pending 89.6 MCH (27.0 - 31.0 PG) Pending 28.8 MCHC (33.0 - 37.0 G/DL) Pending 32.2 L RDW (11.5 - 14.5 %) Pending 14.0 Plt Count (130 - 400 /CUMM) Pending 258 MPV (7.4 - 10.4 FL) Pending 8.4 Gran % (42.2 - 75.2 %) 74.9 Lymphocytes % (20.5 - 51.1 %) 16.4 L Monocytes % (1.7 - 9.3 %) 6.7 Eosinophils % (0 - 5 %) 1.8 Basophils % (0.0 - 2.0 %) 0.2 Absolute Granulocytes (1.4 - 6.5 /CUMM) 9.4 H Absolute Lymphocytes (1.2 - 3.4 /CUMM) 2.1 Absolute Monocytes (0.10 - 0.60 /CUMM) 0.8 H Absolute Eosinophils (0.0 - 0.7 /CUMM) 0.2 Absolute Basophils (0.0 - 0.2 /CUMM) 0 Assessment/Plan Assessment/Plan Imp: 1. Gross hematuria due to li trauma in the setting of anticoagulation. Significantly improved 2. Neurogenic bladder secondary to paraplegia from spinal abscess 3. Multiple comorbidities Plan: 1. Stop CBI. Continue li to gravity drainage. If urine becomes bloody may restart CBI. If catheter not draining irrigate li. (There may be some old clots remaining in bladder) 2. Continue to hold anticoagulation today if safe to do so. If urine clear today and tomorrow AM would start anticoagulation tomorrow
[2017-10-02 10:25] LABS: ABSOLUTE BASOPHIL COUNT 0 /CUMM (0.0-0.2); ABSOLUTE EOSINOPHIL COUNT 0.3 /CUMM (0.0-0.7); ABSOLUTE GRANULOCYTE CT 5.4 /CUMM (1.4-6.5); ABSOLUTE LYMPH COUNT 1.6 /CUMM (1.2-3.4); ABSOLUTE MONOCYTE COUNT 0.7 /CUMM (0.10-0.60); BASOPHIL % 0 % (0.0-2.0); EOSINOPHIL % 4.1 % (0-5); GRANULOCYTE % 67.1 % (42.2-75.2); HEMATOCRIT 31.3 % (42-52); MEAN CORPUSCULAR HGB 28.9 PG (27.0-31.0); MEAN CORPUSCULAR HGB CONC 32.2 G/DL (33.0-37.0); MEAN PLATELET VOLUME 8.4 FL (7.4-10.4); PLATELET COUNT 228 /CUMM (130-400); RBC DISTRIBUTION WIDTH 14.8 % (11.5-14.5); RED BLOOD CELL CT 3.48 /CUMM (4.70-6.10)
[2017-10-02 14:53] VITALS: BP 130/68
--- NOTE | 2017-10-02 14:55 | Cons- Cardiology ---
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 He presented to our hospital with hematuria following accidental traumatic Orellana removal. The patient was evaluated by urology and underwent bladder irrigation. Due to significant hematuria, his anticoagulation regimen was held. Following clearing of his hematuria, urology consult obtained suggest resuming his anticoagulation possibly on October 03, 2017. In discussion with the patient, he is otherwise doing well from a cardiovascular standpoint and denies symptoms of chest pains, palpitations nor dyspnea while at rest or with physical activity. He is however limited secondary to his paraplegia. The patient otherwise denies excessive bleeding/bruising while on anticoagulation. Allergies/Medications Allergies: Coded Allergies: heparin (Intermediate, SWELLING, RASH 09/05/17) vancomycin (Intermediate, HIVES, SKIN CRACKES, TURNS RED, SWELLS AND PEELS 09/05) warfarin (From COUMADIN) (Intermediate, RASH 09/05/17) Home Med List: Albuterol Sulfate (Ventolin Hfa) 90 MCG HFA.AER.AD 2 PUF INH AD PRN COPD ( Reported) Apixaban (Eliquis) 5 MG TABLET 5 MG PO BID atrial fibrillation Ascorbate Calcium (Vitamin C) 500 MG TABLET 1 TAB PO BID SUPPLEMENT (Reported ) Atomoxetine HCl (Strattera) 40 MG CAPSULE 1 CAP PO QAM MENTAL HEALTH ( Reported) Baclofen 20 MG TABLET 1 TAB PO BID MUSCLE RELAXER (Reported) Bisacodyl (Dulcolax) 10 MG SUPP.RECT 1 SUP RC Q48 GI (Reported) Budesonide/Formoterol Fumarate (Symbicort 80-4.5 Mcg Inhaler) 80 MCG-4.5 MCG/ ACTUATION HFA.AER.AD 2 PUF INH BID COPD (Reported) Cefuroxime Axetil (Cefuroxime) 500 MG TABLET 1 TAB PO BID UROLOGIC Docusate Sodium (Stool Softener) 100 MG CAPSULE 1 CAP PO DAILY STOOL SOFTENER (Reported) Doxycycline Hyclate 100 MG CAPSULE 1 CAP PO BID infection (Reported) Evolocumab (Repatha Sureclick) 140 MG/ML PEN.INJCTR 1 ML SC Q 2 WEEKS CHOLESTEROL (Reported) Furosemide 20 MG TABLET 3 TAB PO Q48 DIURETIC (Reported) Gabapentin 300 MG CAPSULE 2 CAP PO BID NERVE PAIN (Reported) Guaifenesin (Mucinex) 600 MG TAB.ER.12H 1 TAB PO BID CONGESTION (Reported) Hydroxyzine HCl (hydrOXYzine HCl) 10 MG TABLET 1 TAB PO BID PRN ANXIETY ( Reported) Lactobacillus Acidophilus (Acidophilus) 1 EACH CAPSULE 1 CAP PO BID PROBIOTIC (Reported) Magnesium Oxide (Magnesium) 400 MG CAPSULE 1 CAP PO 0600 SUPPLEMENT (Reported ) Metoprolol Succ XL (Toprol XL) 25 MG TAB 1 TAB PO DAILY HEART (Reported) Montelukast Sodium (Singulair) 10 MG TABLET 1 TAB PO DAILY ALLERGIES ( Reported) Multivitamin (Daily Value) 1 EACH TABLET 1 TAB PO DAILY VITAMIN SUPPORT ( Reported) Nortriptyline HCl 10 MG CAPSULE 1 CAP PO DAILY mental health (Reported) Omeprazole 20 MG CAPSULE.DR 1 CAP PO DAILY ACID REFLUX (Reported) Oxycodone HCl/Acetaminophen (Oxycodone-Acetaminophen 5-325) 5 MG-325 MG TABLET 1 TAB PO Q4H PRN PAIN (Reported) Potassium Chloride 20 MEQ TAB.ER.PRT 1 TAB PO DAILY SUPPLEMENT (Reported) Rifampin (Rifadin) 300 MG CAPSULE 300 MG PO BID MRSA (Reported) Sotalol (Betapace) 80 MG TABLET 80 MG PO BID AARYTHMIAS Tiotropium [place] (Spiriva) 18 MCG CAP.W.DEV 1 CAP INH DAILY BREATHING PROBLEMS (Reported) Current Medications: Current Medications Sig/Danni Start time Last Medication Dose Route Stop Time Status Admin Acetaminophen 650 MG Q6P PRN 10/01 1500 AC 10/01 PO 2140 Albuterol Sulfate 2 PUF Q4-PRN PRN 10/01 2215 AC INH Albuterol Sulfate 3 ML EVERY 4 HRS/AWAKE 10/02 1999 AC 10/02 INH 1136 Baclofen 20 MG BID 10/01 2100 AC 10/02 PO 0944 Bisacodyl 10 MG Q48 10/03 0900 AC AK Budesonide/ 2 PUF BID 10/01 2099 AC 10/02 Formoterol Fumarate INH 0945 Docusate Sodium 100 MG DAILY 10/02 0900 AC PO Docusate Sodium 100 MG DAILY 10/01 1602 CAN PO 10/01 2359 Doxycycline Hyclate 100 MG BID 10/01 2099 AC 10/02 PO 0944 Gabapentin 600 MG BID 10/01 2099 AC 10/02 PO 0944 Guaifenesin 10 ML Q6P PRN 10/01 2115 AC PO Guaifenesin 600 MG BID 10/01 2099 AC 10/02 PO 0944 Hydroxyzine HCl 10 MG BID PRN 10/01 1615 AC PO Metoprolol Succinate 25 MG DAILY 10/02 0900 AC 10/02 PO 0945 Metoprolol Succinate 25 MG DAILY 10/01 1607 CAN PO Montelukast Sodium 10 MG 10/01 2300 AC 10/01 PO 2335 Montelukast Sodium 10 MG DAILY 10/01 1607 CAN PO Nortriptyline HCl 10 MG DAILY 10/02 09 AC 10/02 PO 0944 Omeprazole 20 MG DAILY 10/02 0900 AC 10/02 PO 0944 Oxycodone/ 1 TAB ONCE ONE 10/02 0930 DC 10/02 Acetaminophen PO 10/02 0931 0942 Oxycodone/ 1 TAB ONCE ONE 10/01 1700 DC 10/01 Acetaminophen PO 10/01 1701 1723 Rifampin 300 MG BID 10/01 2099 AC 10/02 PO 0944 Sodium Chloride 1,000 ML .Q10H 10/01 1500 DC 10/02 IV 0130 Sotalol HCl 80 MG BID 10/01 2099 AC 10/02 PO 0945 Tiotropium [place] 1 PUF DAILY 10/02 0900 AC 10/02 INH 0943 Tiotropium [place] 1 PUF DAILY 10/01 1608 CAN INH Review of Systems Review of Systems: The review of systems is negative for chest pains, palpitations nor lightheadedness. The remainder of the 14 point review of systems is noncontributory with the exception of above. 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 Home Who Do You Live With? 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 yes Functional Ability ADLs Needs Assist: dressing, eating, toileting, bathing. Ambulation: wheelchair IADLs Independent: shopping, housework, finances, food prep, telephone, transportation , medication admin. Exam & Diagnostic Data Vital Signs and I&O Vital Signs Date Time Temp Pulse Resp B/P B/P Pulse O2 O2 Flow FiO2 Mean Ox Delivery Rate 10/02 1139 96 Nasal 2.0L Cannula 10/02 0945 74 132/74 10/02 0604 98.0 74 20 132/74 91 10/02 0559 97 Nasal 2.0L Cannula 10/02 0558 98 10/02 0401 98 10/02 0034 86 95 10/02 0000 BIPAP 10/01 2300 98.3 93 20 153/73 100 Nasal 2.0L Cannula 10/01 1910 Nasal 2.0L Cannula 10/01 1700 98.5 85 18 132/84 96 10/01 1635 93 Nasal 2.0L Cannula 10/01 1635 93 Nasal 2.0L Cannula 10/01 1622 98.1 85 22 151/69 99 Nasal 2.0L Cannula Intake & Output 10/02 1600 10/02 0800 10/02 0000 10/01 1600 10/01 0800 10/01 0000 Intake Total 920 640 Output Total 915 366 9175 Balance Intake, IV 800 400 Intake, Oral 120 240 Number 0 0 Bowel Movements Output, Urine [phone] Patient 223 lb 223 lb Weight Weight Reported by Patient Reported by Patient Measurement Method Physical Exam: General: Nontoxic, no apparent distress. HEENT: Sclera and conjunctiva within normal limits, without xanthelasmas. Neck: Carotids 2+ without bruits. Respiratory: Clear to auscultation, air movement is good, without accessory respiratory muscle use. Heart: Regular rate and rhythm, without murmurs, without JVD. Abdomen: Soft, nontender, no masses, normoactive bowel sounds. Extremities: Without clubbing, cyanosis, without edema. Neuro: Paraplegia Skin: Within normal limits without lesions. Psych: Mood and affect: Normal Labs/Bryan Results: Laboratory Tests 10/02 10/01 0815 0931 Chemistry Sodium (137 - 145 mmol/L) 138 Potassium (3.5 - 5.1 mmol/L) 4.3 Chloride (98 - 107 mmol/L) 100 Carbon Dioxide (22 - 30 mmol/L) 33 H Anion Gap (5 - 16) 6 BUN (9 - 20 mg/dL) 14 Creatinine (0.7 - 1.2 mg/dL) 0.5 L Estimated GFR (>60 ml/min) > 60 BUN/Creatinine Ratio (7 - 25 %) 28.0 H Hematology CBC w Diff NO MAN DIFF REQ NO MAN DIFF REQ WBC (4.8 - 10.8 /CUMM) 8.0 12.5 H RBC (4.70 - 6.10 /CUMM) 3.48 L 3.60 L Hgb (14.0 - 18.0 G/DL) 10.1 L 10.4 L Hct (42 - 52 %) 31.3 L 32.2 L MCV (80.0 - 94.0 FL) 90.0 89.6 MCH (27.0 - 31.0 PG) 28.9 28.8 MCHC (33.0 - 37.0 G/DL) 32.2 L 32.2 L RDW (11.5 - 14.5 %) 14.8 H 14.0 Plt Count (130 - 400 /CUMM) 228 258 MPV (7.4 - 10.4 FL) 8.4 8.4 Gran % (42.2 - 75.2 %) 67.1 74.9 Lymphocytes % (20.5 - 51.1 %) 20.3 L 16.4 L Monocytes % (1.7 - 9.3 %) 8.5 6.7 Eosinophils % (0 - 5 %) 4.1 1.8 Basophils % (0.0 - 2.0 %) 0 0.2 Absolute Granulocytes (1.4 - 6.5 /CUMM) 5.4 9.4 H Absolute Lymphocytes (1.2 - 3.4 /CUMM) 1.6 2.1 Absolute Monocytes (0.10 - 0.60 /CUMM) 0.7 H 0.8 H Absolute Eosinophils (0.0 - 0.7 /CUMM) 0.3 0.2 Absolute Basophils (0.0 - 0.2 /CUMM) 0 0 05/12 0924 Chemistry Sodium (137 - 145 mmol/L) 137 Potassium (3.5 - 5.1 mmol/L) 4.1 Chloride (98 - 107 mmol/L) 98 Carbon Dioxide (22 - 30 mmol/L) 33 H Anion Gap (5 - 16) 6 BUN (9 - 20 mg/dL) 20 Creatinine (0.7 - 1.2 mg/dL) 0.6 L Estimated GFR (>60 ml/min) > 60 BUN/Creatinine Ratio (7 - 25 %) 33.3 H Glucose (65 - 99 mg/dL) 146 H Calcium (8.4 - 10.2 mg/dL) 8.8 Assessment/Plan Assessment/Plan 67-year-old gentleman with a past medical history of persistent atrial fibrillation (anticoagulated with Eliquis), coronary artery disease (status post remote stenting), aortic valve endocarditis, prior DVT/pulmonary embolism with IVC filter hypertension, hyperlipidemia, 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 He presented to our hospital with hematuria following accidental traumatic Orellana removal, requiring holding of his anticoagulation regimen. Atrial fibrillation: The patient has persistent versus paroxysmal atrial fibrillation and is anticoagulated with Eliquis. He has been overall doing well without bleeding episodes; however, has had his current presentation in the setting of traumatic Orellana removal. At this time, I believe it would be safe to hold his anticoagulation for another 24 hours and observe for further hematuria. Is cleared, I would resume his anticoagulation and follow-up with urology. Coronary artery disease: Stable, we will continue to follow with his primary interior systems carpenter as an outpatient. Hypertension: The patient has had well-controlled blood pressures as an outpatient. We will continue his outpatient regimen, and adjust as needed as an outpatient. Thank you for allowing us to participate in the care of your patient. Please do not hesitate to contact us further with any questions. Sincerely, Arash Lake MD [facility] Consult Acknowledgment - Thank you for your consult request.
[2017-10-02 22:40] VITALS: BP 133/68
[2017-10-03 05:55] VITALS: BP 118/62
--- NOTE | 2017-10-03 06:31 | PN- Urology ---
Subjective Subjective: Comfortable Objective Vital Signs and I&Os Vital Signs Date Time Temp Pulse Resp B/P B/P Pulse O2 O2 Flow FiO2 Mean Ox Delivery Rate 10/03 0555 97.9 74 20 118/62 95 10/03 0530 98 Nasal 2.0L Cannula 10/03 0030 76 95 10/03 0000 Nasal 2.0L Cannula 10/02 2240 98.1 87 20 133/68 97 Nasal 2.0L Cannula 10/02 2207 96 10/02 2010 95 Nasal 2.0L Cannula 10/02 1617 Nasal 2.0L Cannula 10/02 1600 Nasal 2.0L Cannula 10/02 1453 98.0 84 20 130/68 98 Nasal Cannula 10/02 1139 96 Nasal 2.0L Cannula 10/02 0945 74 132/74 10/02 0800 96 Nasal 2.0L Cannula Intake & Output 10/03 0800 10/03 0000 10/02 1600 10/02 0800 10/02 0000 10/01 1600 Intake Total 300 1100 920 640 Output Total 1150 450 112 208 7736 Balance -850 650 Intake, IV 500 800 400 Intake, Oral 300 600 120 240 Number 1 0 0 Bowel Movements Output, Urine 1150 450 522 992 1799 Patient 223 lb 223 lb Weight Weight Reported by Patient Reported by Patient Measurement Method Abd: soft. Genitalia: Li in place draining clear urine. No clots Laboratory Tests 10/03 0715 Chemistry Sodium (137 - 145 mmol/L) 138 Potassium (3.5 - 5.1 mmol/L) 4.3 Chloride (98 - 107 mmol/L) 100 Carbon Dioxide (22 - 30 mmol/L) 33 H Anion Gap (5 - 16) 6 BUN (9 - 20 mg/dL) 14 Creatinine (0.7 - 1.2 mg/dL) 0.5 L Estimated GFR (>60 ml/min) > 60 BUN/Creatinine Ratio (7 - 25 %) 28.0 H Hematology CBC w Diff NO MAN DIFF REQ WBC (4.8 - 10.8 /CUMM) 8.0 RBC (4.70 - 6.10 /CUMM) 3.48 L Hgb (14.0 - 18.0 G/DL) 10.1 L Hct (42 - 52 %) 31.3 L MCV (80.0 - 94.0 FL) 90.0 MCH (27.0 - 31.0 PG) 28.9 MCHC (33.0 - 37.0 G/DL) 32.2 L RDW (11.5 - 14.5 %) 14.8 H Plt Count (130 - 400 /CUMM) 228 MPV (7.4 - 10.4 FL) 8.4 Gran % (42.2 - 75.2 %) 67.1 Lymphocytes % (20.5 - 51.1 %) 20.3 L Monocytes % (1.7 - 9.3 %) 8.5 Eosinophils % (0 - 5 %) 4.1 Basophils % (0.0 - 2.0 %) 0 Absolute Granulocytes (1.4 - 6.5 /CUMM) 5.4 Absolute Lymphocytes (1.2 - 3.4 /CUMM) 1.6 Absolute Monocytes (0.10 - 0.60 /CUMM) 0.7 H Absolute Eosinophils (0.0 - 0.7 /CUMM) 0.3 Absolute Basophils (0.0 - 0.2 /CUMM) 0 Assessment/Plan Assessment/Plan Imp: 1. Gross hematuria due to li trauma in setting of anticoagulation. Resolved 2. Neurogenic bladder secondary to paraplegia from spinal abscess 3. Multiple comorbidities Plan: 1. OK to restart anticoagulation 2. If urine remains clear, from urologic point of view may be discharged this PM or tomorrow AM 3. Li to be changed at home by [facility] 4. Patient should also f/u with Dr Polk
--- NOTE | 2017-10-03 07:13 | PN- Housestaff ---
Subjective Follow-up For: Hematuria secondary due to trauma Subjective: Patient seen and examined at bedside. No overnight events.No complaints. He is draining clear urine. Denies lower abdominal pain, fever, chills. Review of Systems Constitutional: Reports: no symptoms, see HPI. Objective Last 24 Hrs of Vital Signs/I&O Vital Signs Date Time Temp Pulse Resp B/P B/P Pulse O2 O2 Flow FiO2 Mean Ox Delivery Rate 10/03 0957 97 112/60 10/03 0825 95 Nasal 2.0L Cannula 10/03 0800 97 Nasal 2.0L Cannula 10/03 0555 97.9 74 20 118/62 95 10/03 0530 98 Nasal 2.0L Cannula 10/03 0030 76 95 10/03 0000 Nasal 2.0L Cannula 10/02 2240 98.1 87 20 133/68 97 Nasal 2.0L Cannula 10/02 2207 96 10/02 2009 95 Nasal 2.0L Cannula 10/02 1617 Nasal 2.0L Cannula 10/02 1600 Nasal 2.0L Cannula Intake & Output 10/03 1600 10/03 0800 10/03 0000 Intake Total 100 300 Output Total 325 1150 Balance -225 -850 Intake, Oral 100 300 Number 1 Bowel Movements Output, Urine 325 1150 Physical Exam General Appearance: Alert, Oriented X3, Cooperative Cardiovascular: Regular Rate, Normal S1, Normal S2, No Murmurs Lungs: Clear to Auscultation Abdomen: Normal Bowel Sounds Neurological: Normal Speech, Normal Tone, Sensation Intact Other Physical Findings: Patient draining clear urine. Current Medications: Current Medications Sig/Danni Start time Last Medication Dose Route Stop Time Status Admin Acetaminophen 650 MG Q6P PRN 10/01 1500 DCD 10/01 PO 2140 Albuterol Sulfate 2 PUF Q4-PRN PRN 10/01 2215 DCD 10/03 INH 1001 Albuterol Sulfate 3 ML EVERY 4 HRS/AWAKE 10/01 2000 DCD 10/03 INH 1124 Apixaban 5 MG BID 10/03 0900 DCD 10/03 PO 1004 Baclofen 20 MG BID 10/01 2100 DCD 10/03 PO 0957 Bisacodyl 10 MG Q48 10/04 0900 DCD IN Bisacodyl 10 MG Q48 10/03 0900 DC IN Bisacodyl 10 MG ONCE ONE 10/02 1600 DC 10/02 IN 10/02 1601 1842 Bisacodyl 10 MG ONCE ONE 10/02 1600 CAN IN 10/02 1601 Budesonide/ 2 PUF BID 10/01 2099 DCD 10/03 Formoterol Fumarate INH 0958 Docusate Sodium 100 MG DAILY 10/02 09 DCD 10/03 PO 0957 Doxycycline Hyclate 100 MG BID 10/01 2099 DCD 10/03 PO 0957 Gabapentin 600 MG BID 10/01 2099 DCD 10/03 PO 0957 Guaifenesin 10 ML Q6P PRN 10/01 2114 DCD PO Guaifenesin 600 MG BID 10/01 2099 DCD 10/03 PO 0957 Hydroxyzine HCl 10 MG BID PRN 10/01 1615 DCD PO Metoprolol Succinate 25 MG DAILY 10/02 09 DCD 10/03 PO 0957 Montelukast Sodium 10 MG 10/010 DCD 10/02 PO 2223 Nortriptyline HCl 10 MG DAILY 10/02 09 DCD 10/03 PO 0956 Omeprazole 20 MG DAILY 10/02 0900 DCD 10/03 PO 0957 Oxycodone/ 1 TAB ONCE ONE 10/03 0530 DC 10/03 Acetaminophen PO 10/03 0531 0520 Oxycodone/ 1 TAB ONCE ONE 10/02 1900 DC 10/02 Acetaminophen PO 10/02 1901 1902 Rifampin 300 MG BID 10/01 2099 DCD 10/03 PO 0957 Sotalol HCl 80 MG BID 10/01 2099 DCD 10/03 PO 0957 Tiotropium [place] 1 PUF DAILY 10/02 09 DCD 10/03 INH 0957 Last 24 Hrs of Lab/Bryan Results Last 24 Hrs of Labs/Mics: Laboratory Tests 10/03/17 0615: CBC w Diff NO MAN DIFF REQ, RBC 3.35 L, MCV 90.8, MCH 28.4, MCHC 31.3 L, RDW 15.0 H, MPV 8.5, Gran % 66.8, Lymphocytes % 19.4 L, Monocytes % 9.7 H, Eosinophils % 4.0, Basophils % 0.1, Absolute Granulocytes 7.9 H, Absolute Lymphocytes 2.3, Absolute Monocytes 1.1 H, Absolute Eosinophils 0.5, Absolute Basophils 0 Assessment/Plan Assessment: 67yo M w/ PMH of COPD (on 2L O2/Bipap), BLE edema, JELANI, HTN, HLD, A-fib on eliquis, neurogenic bladder status post Orellana catheter, depression, CAD s/p stent placement, IVC filter, 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 Patient admitted to [facility] for further evaluation and management Assessment and plan 1. Hematuria secondary due to trauma 2. Chronic medical conditions-COPD, JELANI, HTN, HLD, A-fib * Patient draining clear urine. Seen by urology who suggested to discontinue continuous bladder irrigation and restart him on apixaban * CBC monitoring every 12. Patient hemoglobin today is 9.5 * Pt seen by cardiology who suggested to continue current management and follow up with game programer as outpatient. * Diet-heart healthy diet * Continue all his home medication except apixaban. * Code-DNR/DNI Problem List: 1. Hematuria Pain Ratin Pain Location: none Pain Goal: Remain pain free Pain Plan: tylenol Tomorrow's Labs & Rationales: none
[2017-10-03 08:27] LABS: ABSOLUTE BASOPHIL COUNT 0 /CUMM (0.0-0.2); ABSOLUTE EOSINOPHIL COUNT 0.5 /CUMM (0.0-0.7); ABSOLUTE GRANULOCYTE CT 7.9 /CUMM (1.4-6.5); ABSOLUTE LYMPH COUNT 2.3 /CUMM (1.2-3.4); ABSOLUTE MONOCYTE COUNT 1.1 /CUMM (0.10-0.60); BASOPHIL % 0.1 % (0.0-2.0); GRANULOCYTE % 66.8 % (42.2-75.2); HEMATOCRIT 30.4 % (42-52); MEAN CORPUSCULAR HGB 28.4 PG (27.0-31.0); MEAN CORPUSCULAR HGB CONC 31.3 G/DL (33.0-37.0); MEAN CORPUSCULAR VOLUME 90.8 FL (80.0-94.0); MEAN PLATELET VOLUME 8.5 FL (7.4-10.4); PLATELET COUNT 248 /CUMM (130-400); RED BLOOD CELL CT 3.35 /CUMM (4.70-6.10); WHITE BLOOD CELL COUNT 11.8 /CUMM (4.8-10.8)
--- NOTE | 2017-10-03 08:50 | Patient Discharge Instructions ---
Discharge Instructions General Discharge Information You were seen/treated for: Traumatic hematuria Watch for these problems: In case of blood in urine, nausea, vomiting, abdominal pain please go to the nearest emergency room Special Instructions: Please follow-up with your primary care provider/manager telemetry/urologist within 1 -2 weeks of discharge Diet Continue normal diet: No Recommended Diet: Heart Healthy Activity Full Activity/No Limits: No Activity Self Limited: Yes Acute Coronary Syndrome Inclusion Criteria At DC or during hospital stay patient has or had the following: ACS DIAGNOSIS No Discharge Core Measures Meds if any: Prescribed or Continued at Discharge Meds if any: NOT Prescribed or Continued at Discharge Congestive Heart Failure Inclusion Criteria At DC or during hospital stay patient has or had the following: CHF DIAGNOSIS No Discharge Core Measures Meds if any: Prescribed or Continued at Discharge Meds if any: NOT Prescribed or Continued at Discharge Cerebrovascular accident Inclusion Criteria At DC or during hospital stay patient has or had the following: CVA/TIA Diagnosis No Discharge Core Measures Meds if any: Prescribed or Continued at Discharge Meds if any: NOT Prescribed or Continued at Discharge Venous thromboembolism Inclusion Criteria VTE Diagnosis No VTE Type NONE VTE Confirmed by (Test) NONE Discharge Core Measures - Per Current guidelines, there needs to be overlap - treatment for the first 5 days of Warfarin therapy. - If discharged on Warfarin prior to 5 days of - overlap therapy, the patient will need to be - assessed for post discharge needs including - *Post discharge parental anticoagulation - *Warfarin and/or parental anticoagulation education - *Follow up date to check INR post discharge At least 5 days overlap therapy as Inpatient No Meds if any: Prescribed or Continued at Discharge Note: Overlap Therapy is Warfarin and Anticoagulant Meds if any: NOT Prescribed or Continued at Discharge
[2017-10-03 09:57] VITALS: BP 112/60
--- NOTE | 2017-10-03 13:24 | PN- Att Addend ---
Attending Addendum Attending Brief Note Patient seen and examined, denies any complaints. Hematuria is clearing up. H& H remained stable. Patient does have mild acute blood loss anemia secondary to hematuria but H&H is now stable. He was seen by urology in from their standpoint he came at discharge. His antegrade granulation with Eliquis will be resumed today. He will be continued on the rest of his home medications and otherwise medically stable for discharge home today.
== END 2017-10-03 14:22 | disposition home health service (06) | DRG 812 ==
LOC: ERH 08:47 → 2NB 14:11 → ERHI 14:11 → ENRESERV 15:17 → ENTRNSPT 15:53 → EDTRNSPTSTS 16:18 → 2NB 16:28 → CMPTRNSPT 16:44 → ENPENDDIS 10-03 11:17 → 2NB 10-03 14:22
PROVIDERS: Physician Assistant Medical; Student in an Organized Health Care Education/Training Program
DX: D62 Acute posthemorrhagic anemia (principal); J96.10 Chronic respiratory failure, unspecified whether with hypoxia or hypercapnia; G82.20 Paraplegia, unspecified; I48.1 Persistent atrial fibrillation; R31.9 Hematuria, unspecified; N31.9 Neuromuscular dysfunction of bladder, unspecified; Z99.81 Dependence on supplemental oxygen; Z96.0 Presence of urogenital implants; J44.9 Chronic obstructive pulmonary disease, unspecified; G47.33 Obstructive sleep apnea (adult) (pediatric); I10 Essential (primary) hypertension; Z79.01 Long term (current) use of anticoagulants; T45.515D Adverse effect of anticoagulants, subsequent encounter; E78.5 Hyperlipidemia, unspecified; F32.9 Major depressive disorder, single episode, unspecified; I25.10 Atherosclerotic heart disease of native coronary artery without angina pectoris; Z98.61 Coronary angioplasty status; G83.89 Other specified paralytic syndromes; Z88.1 Allergy status to other antibiotic agents; Z88.8 Allergy status to other drugs, medicaments and biological substances; Z79.891 Long term (current) use of opiate analgesic; Z79.51 Long term (current) use of inhaled steroids; I25.2 Old myocardial infarction; F41.9 Anxiety disorder, unspecified; Z66 Do not resuscitate
CPT/HCPCS: 2NBP; 36592; 81001; 82436; 87070; 87086; J3490

== ENCOUNTER 2017-10-09 03:27 | Emergency (ER) | payer OTHER, MEDICARE ==
[~2017-10-09] VITALS: Ht 175.3 cm; Wt 101.2 kg
--- NOTE | 2017-10-09 03:46 | ED GI/GU/ABDOMINAL COMPLAINT ---
History of Present Illness General Chief Complaint: Male Genitourinary Problems Stated Complaint: MODI CATH CLOGGED Source: patient, old records Exam Limitations: no limitations Vital Signs & Intake/Output Vital Signs & Intake/Output reviewed Allergies Coded Allergies: heparin (Intermediate, SWELLING, RASH 09/05/17) vancomycin (Intermediate, HIVES, SKIN CRACKES, TURNS RED, SWELLS AND PEELS 09/05) warfarin (From COUMADIN) (Intermediate, RASH 09/05/17) Reconcile Medications Albuterol Sulfate (Ventolin Hfa) 90 MCG HFA.AER.AD 2 PUF INH AD PRN COPD ( Reported) Apixaban (Eliquis) 5 MG TABLET 5 MG PO BID atrial fibrillation Ascorbate Calcium (Vitamin C) 500 MG TABLET 1 TAB PO BID SUPPLEMENT (Reported ) Atomoxetine HCl (Strattera) 40 MG CAPSULE 1 CAP PO QAM MENTAL HEALTH ( Reported) Baclofen 20 MG TABLET 1 TAB PO BID MUSCLE RELAXER (Reported) Bisacodyl (Dulcolax) 10 MG SUPP.RECT 1 SUP RC Q48 GI (Reported) Budesonide/Formoterol Fumarate (Symbicort 80-4.5 Mcg Inhaler) 80 MCG-4.5 MCG/ ACTUATION HFA.AER.AD 2 PUF INH BID COPD (Reported) Docusate Sodium (Stool Softener) 100 MG CAPSULE 1 CAP PO DAILY STOOL SOFTENER (Reported) Doxycycline Hyclate 100 MG CAPSULE 1 CAP PO BID infection (Reported) Evolocumab (Repatha Sureclick) 140 MG/ML PEN.INJCTR 1 ML SC Q 2 WEEKS CHOLESTEROL (Reported) Furosemide 20 MG TABLET 3 TAB PO Q48 DIURETIC (Reported) Gabapentin 300 MG CAPSULE 2 CAP PO BID NERVE PAIN (Reported) Guaifenesin (Mucinex) 600 MG TAB.ER.12H 1 TAB PO BID CONGESTION (Reported) Hydroxyzine HCl (hydrOXYzine HCl) 10 MG TABLET 1 TAB PO BID PRN ANXIETY ( Reported) Lactobacillus Acidophilus (Acidophilus) 1 EACH CAPSULE 1 CAP PO BID PROBIOTIC (Reported) Magnesium Oxide (Magnesium) 400 MG CAPSULE 1 CAP PO 0600 SUPPLEMENT (Reported ) Metoprolol Succ XL (Toprol XL) 25 MG TAB 1 TAB PO DAILY HEART (Reported) Montelukast Sodium (Singulair) 10 MG TABLET 1 TAB PO DAILY ALLERGIES ( Reported) Multivitamin (Daily Value) 1 EACH TABLET 1 TAB PO DAILY VITAMIN SUPPORT ( Reported) Nortriptyline HCl 10 MG CAPSULE 1 CAP PO DAILY mental health (Reported) Omeprazole 20 MG CAPSULE.DR 1 CAP PO DAILY ACID REFLUX (Reported) Oxycodone HCl/Acetaminophen (Oxycodone-Acetaminophen 5-325) 5 MG-325 MG TABLET 1 TAB PO Q4H PRN PAIN (Reported) Potassium Chloride 20 MEQ TAB.ER.PRT 1 TAB PO DAILY SUPPLEMENT (Reported) Rifampin (Rifadin) 300 MG CAPSULE 300 MG PO BID MRSA (Reported) Sotalol (Betapace) 80 MG TABLET 80 MG PO BID AARYTHMIAS Tiotropium [place] (Spiriva) 18 MCG CAP.W.DEV 1 CAP INH DAILY BREATHING PROBLEMS (Reported) Triage Nurses Notes Reviewed? yes HPI: Patient presents for evaluation of a dysfunctional Modi catheter. Patient states that about 2 hours ago that was of gradual onset of worsening sediment in his Modi catheter output followed by increasing fullness in the suprapubic region. Past History Travel History Traveled to [place] past 21 day No Medical History Any Pertinent Medical History? 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 No Review of Systems Review of Systems Constitutional: Reports: no symptoms. EENTM: Reports: no symptoms. Respiratory: Reports: no symptoms. Cardiovascular: Reports: no symptoms. GI: Reports: no symptoms. Genitourinary: Reports: see HPI. Musculoskeletal: Reports: no symptoms. Skin: Reports: no symptoms. Neurological/Psychological: Reports: no symptoms. Hematologic/Endocrine: Reports: no symptoms. Immunologic/Allergic: Reports: no symptoms. All Other Systems: Reviewed and Negative Physical Exam Physical Exam Gastrointestinal: SEE BELOW Comments: Gen.: Well-nourished, well-developed, no acute respiratory distress. Head: Normocephalic, atraumatic. Eyes: Normal inspection bilaterally Ears: Normal inspection bilaterally Nose: Normal inspection Throat/mouth : Moist mucosa Neck: Supple, full range of motion, no goiter Lungs: Quiet respirations Abdomen: Soft and nontender Back: Normal range of motion Extremities: Normal range of motion grossly, no cyanosis clubbing or edema of the upper extremities Neurologic: Cranial nerves grossly intact, speech is clear Skin: warm and dry Psychiatric: Calm, cooperative, no apparent delusions or hallucinations Core Measures ACS in differential dx? No Sepsis Present: No Sepsis Focused Exam Completed? No Progress Differential Diagnosis: DYSFUNCTIONAL Modi CATHETER Plan of Care: cont current care Initial ED EKG: none Comments: 10/09/2017 3:44:10 AM Modi catheter replaced by a nurse with resolution of patient's suprapubic fullness. The replacement catheter is draining well. Departure Departure Disposition: HOME OR SELF CARE Condition: Stable Clinical Impression Primary Impression: Modi catheter problem Qualifiers: Encounter type: initial encounter Qualified Code: T83.9XXA - Unspecified complication of genitourinary prosthetic device, implant and graft, initial encounter Referrals: Dominguez Serrano MD (PCP/Family) Additional Instructions: continue current care. Departure Forms: Customer Survey General Discharge Information
[2017-10-09 04:56] VITALS: BP 134/78
== END 2017-10-09 05:04 ==
LOC: ERH 03:27
DX: T83.098A Other mechanical complication of other urinary catheter, initial encounter (principal)

== ENCOUNTER 2017-12-02 18:35 | Inpatient (IN) | payer OTHER, MEDICARE ==
[~2017-12-02] VITALS: Ht 175.3 cm; Wt 100.9 kg
[~2017-12-02 18:35] MED LIST changes: +SYMBICORT 16010.2 GM INH
--- NOTE | 2017-12-02 19:00 | ED GENERAL ADULT ---
History of Present Illness General Chief Complaint: Male Genitourinary Problems Stated Complaint: BIBA BLEEDING FROM PENIS Source: patient Exam Limitations: no limitations Vital Signs & Intake/Output Vital Signs & Intake/Output Vital Signs Date Time Temp Pulse Resp B/P B/P Pulse O2 O2 Flow FiO2 Mean Ox Delivery Rate 12/03 0033 99.0 90 18 130/62 98 Room Air 12/02 2254 90 18 136/63 95 Room Air 12/023 89 18 148/95 96 Room Air 12/02 1930 Room Air 12/02 192 98 Nasal 2.0L Cannula 12/02 184 99.1 88 18 160/74 97 Room Air ED Intake and Output 12/03 0000 12/02 1200 Intake Total Output Total Balance Patient 250 lb Weight Weight Estimated Measurement Method Allergies Coded Allergies: heparin (Intermediate, SWELLING, RASH 09/05/17) vancomycin (Intermediate, HIVES, SKIN CRACKES, TURNS RED, SWELLS AND PEELS 09/05) warfarin (From COUMADIN) (Intermediate, NOT EFFECTIVE CAN NOT GET LEVELS ABOVE 1 10/23/17) Reconcile Medications Albuterol Sulfate (Ventolin Hfa) 90 MCG HFA.AER.AD 2 PUF INH AD PRN COPD ( Reported) Albuterol Sulfate 2.5 MG/3 ML (0.083 %) VIAL.NEB 1 Vial INH/MATT Q4P PRN COPD (Reported) Apixaban (Eliquis) 5 MG TABLET 5 MG PO BID atrial fibrillation Ascorbate Calcium (Vitamin C) 500 MG TABLET 1 TAB PO BID SUPPLEMENT (Reported ) Atomoxetine HCl (Strattera) 40 MG CAPSULE 1 CAP PO QAM MENTAL HEALTH ( Reported) Baclofen 20 MG TABLET 1 TAB PO BID MUSCLE RELAXER (Reported) Bisacodyl (Dulcolax) 10 MG SUPP.RECT 1 SUP RC Q48 GI (Reported) Budesonide/Formoterol Fumarate (Symbicort 80-4.5 Mcg Inhaler) 80 MCG-4.5 MCG/ ACTUATION HFA.AER.AD 2 PUF INH BID COPD (Reported) Docusate Sodium (Stool Softener) 100 MG CAPSULE 1 CAP PO DAILY STOOL SOFTENER (Reported) Evolocumab (Repatha Sureclick) 140 MG/ML PEN.INJCTR 1 ML SC Q 2 WEEKS CHOLESTEROL (Reported) Furosemide 20 MG TABLET 3 TAB PO Q48 DIURETIC (Reported) Gabapentin 300 MG CAPSULE 2 CAP PO BID NERVE PAIN (Reported) Guaifenesin (Mucinex) 600 MG TAB.ER.12H 1 TAB PO BID CONGESTION (Reported) Hydroxyzine HCl (hydrOXYzine HCl) 10 MG TABLET 1 TAB PO BID PRN ANXIETY ( Reported) Lactobacillus Acidophilus (Acidophilus) 1 EACH CAPSULE 1 CAP PO BID PROBIOTIC (Reported) Magnesium Oxide (Magnesium) 400 MG CAPSULE 1 CAP PO 0600 SUPPLEMENT (Reported ) Metoprolol Succ XL (Toprol XL) 25 MG TAB 1 TAB PO DAILY HEART (Reported) Montelukast Sodium (Singulair) 10 MG TABLET 1 TAB PO DAILY ALLERGIES ( Reported) Multivitamin (Daily Value) 1 EACH TABLET 1 TAB PO DAILY VITAMIN SUPPORT ( Reported) Nortriptyline HCl 10 MG CAPSULE 1 CAP PO DAILY mental health (Reported) Omeprazole 20 MG CAPSULE.DR 1 CAP PO DAILY ACID REFLUX (Reported) Oxycodone HCl/Acetaminophen (Oxycodone-Acetaminophen 5-325) 5 MG-325 MG TABLET 1 TAB PO Q4H PRN PAIN (Reported) Potassium Chloride 20 MEQ TAB.ER.PRT 1 TAB PO DAILY SUPPLEMENT (Reported) Rifampin (Rifadin) 300 MG CAPSULE 300 MG PO BID MRSA (Reported) Sotalol (Betapace) 80 MG TABLET 80 MG PO BID AARYTHMIAS Tiotropium [place] (Spiriva) 18 MCG CAP.W.DEV 1 CAP INH DAILY BREATHING PROBLEMS (Reported) Triage Note: PT COMING FROM HOME BIBA C/O OF WHEN HOME NURSE TOOK BEAVERS OUT THERE WAS A LOT SEDIMENT, HARD TO FLUSH. WHEN IT WAS TAKEN OUT PT URINATED AND URINE WAS VERY BLOODY. PT DOES NOT WALK, HX NEUROGENIC BLADDER HAS 2 OPEN SORES ON BOTTOM BEING TREATED. ON CIPRO FOR UTI. Triage Nurses Notes Reviewed? yes HPI: 59-year-old male with neurogenic bladder with indwelling Beavers catheter, A. fib on Eliquis, COPD on 2 L nasal cannula, presents to the emergency department by ambulance reporting this morning he began feeling burning with urination at which point he had called his urologist Dr. Polk who had started him on Cipro. Patient reports taking 1 pill this morning of the cipro but nothing since then. He states that nursing had tried to flush out his Beavers catheter after which bloody discharge came out of his penis. He denies any pain. Has not had beavers catheter in place since earlier today. Upon arrival at the ED patient requesting breathing treatment due to "feeling junky". He reports having minimal shortness of breath that just started prior to arrival. No chest pain, f/c/n/v/ d. (Katia Navarrete) Past History Travel History Traveled to [place] past 21 day No Medical History Any Pertinent Medical History? 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 No (Katia Navarrete) Review of Systems Review of Systems Constitutional: Reports: see HPI. EENTM: Reports: no symptoms. Respiratory: Reports: see HPI. Cardiovascular: Reports: see HPI. GI: Reports: no symptoms. Genitourinary: Reports: see HPI. Musculoskeletal: Reports: no symptoms. Skin: Reports: no symptoms. Neurological/Psychological: Reports: no symptoms. Hematologic/Endocrine: Reports: no symptoms. Immunologic/Allergic: Reports: no symptoms. All Other Systems: Reviewed and Negative (Katia Navarrete) Physical Exam Physical Exam General Appearance: well developed/nourished, no apparent distress, alert, awake , comfortable Head: atraumatic, normal appearance Eyes: Bilateral: normal appearance. Ears, Nose, Throat: hearing grossly normal Neck: normal inspection Respiratory: chest non-tender, accessory muscle use, rhonchi, wheezing Cardiovascular: regular rate/rhythm, normal peripheral pulses Peripheral Pulses: 3+ radial (R), 3+ radial (L) Gastrointestinal: soft, non-tender Extremities: normal inspection, normal capillary refill, normal range of motion Neurologic/Psych: no motor/sensory deficits, awake, alert, oriented x 3, normal mood/affect Comments: 2L Nasal cannula : blood clot at head of penis, non-tender Core Measures ACS in differential dx? No CVA/TIA Diagnosis: No Sepsis Present: No Sepsis Focused Exam Completed? No (Katia Navarrete) Progress Differential Diagnoses I considered the following diagnoses in my evaluation of the patient: [UTI/ cystitis, PNA, CHF, PE, COPD exacerbation] Plan of Care: Orders Procedure Date/time Status Heart Healthy Diet 12/03 B Active CBC WITHOUT DIFFERENTIAL 12/03 06 Active BASIC ELECTROLYTES PLUS BUN&CR 12/03 06 Active CULTURE,URINE 12/03 0002 Active TRC EVALUATION (GEN) 12/02 2347 Active Pathway - chart 12/02 2347 Active Patient Data 12/02 2347 Active Code Status 12/02 2347 Active ED Holding Orders 12/02 2334 Active Admit to inpatient 12/02 2334 Active Vital Signs 12/02 2334 Active Code Status 12/02 2334 Complete Patient Data 12/02 2320 Active Skin/Pressure Ulcer Assess (Sk 12/02 2202 Active TROPONIN LEVEL 12/02 1924 Complete D-DIMER 12/02 1918 Complete Continuous Bladder Irrigation 12/02 1917 Active EKG 12/02 1914 Active AEROSOL (GEN) 12/02 1912 Complete Beavers, Insertion/Removal/Asses 12/02 1910 Active CULTURE,URINE 12/02 1910 Active URINALYSIS 12/02 1910 Complete LACTIC ACID 12/02 1910 Complete COMPREHENSIVE METABOLIC PANEL 12/02 1910 Complete CBC WITHOUT DIFFERENTIAL 12/02 1910 Complete B-TYPE NATRIURETIC PEP (BNP) 12/02 1910 Complete Intake & Output 12/02 1844 Active House Staff 12/02 UNK Active VTE Mechanical Prophylaxis 12/02 UNK Active Current Medications Sig/Danni Start time Last Medication Dose Stop Time Status Admin Bisacodyl 10 MG Q48 12/04 899 AC (Dulcolax Supp) Furosemide 60 MG Q48 12/04 899 AC (Lasix) Apixaban 5 MG BID 12/03 899 AC (Eliquis) Baclofen 20 MG BID 12/03 899 AC (Lioresal 10MG Tablet) Budesonide/ 2 PUF BID 12/03 899 AC Formoterol Fumarate (SYMBICORT) Ceftriaxone Sodium 1,000 MG DAILY 12/03 899 AC (Rocephin) Sodium Chloride 100 ML (Normal Saline 0.9%) Docusate Sodium 100 MG DAILY 12/03 09 AC (Colace) Gabapentin 600 MG BID 12/03 09 AC (Neurontin) Guaifenesin 600 MG BID 12/03 899 AC (Mucinex) Magnesium Oxide 400 MG DAILY 12/03 0900 UNVr (Mag-Ox) Metoprolol Succinate 25 MG DAILY 12/03 09 AC (Toprol XL) Montelukast Sodium 10 MG DAILY 12/03 09 AC (Singulair) Nortriptyline HCl 10 MG DAILY 12/03 899 AC (Aventyl 10MG - Pamelor Cap) Omeprazole 20 MG DAILY 12/03 899 AC (Prilosec) Potassium Chloride 20 MEQ DAILY 12/03 899 AC (K-Dur) Sotalol HCl 80 MG BID 12/03 899 AC (Betapace) Tiotropium [place] 1 PUF DAILY 12/03 899 AC (Spiriva) Acetaminophen 650 MG Q6P PRN 12/02 2345 AC (Tylenol) Albuterol Sulfate 3 ML Q4P PRN 12/02 2345 AC (Proventil) Albuterol Sulfate 2 PUF Q6P PRN 12/02 2345 AC (Ventolin) Hydroxyzine HCl 10 MG BID PRN 12/02 2345 AC (Atarax) Lactated Ringer's 1,000 ML ONCE ONE 12/02 2345 AC 12/03 (Lactated Ringers) 12/03 0744 0032 Oxycodone/ 1 TAB Q4H PRN 12/02 2345 AC Acetaminophen (Percocet) Laboratory Tests 12/02/17 2211: Lactic Acid Cancelled 12/02/172105: Urine Color YEL, Urine Clarity CLDY H, Urine pH 6.5, Ur Specific Chaplin 1.010, Urine Protein 30 H, Urine Ketones 15 H, Urine Nitrite NEG, Urine Bilirubin NEG , Urine Urobilinogen 0.2, Ur Leukocyte Esterase LARGE H, Ur Microscopic SEDIMENT EXAMINED, Urine RBC 5-10 H, Urine WBC > 75 H, Ur Epithelial Cells RARE, Urine Bacteria FEW H, Urine Hemoglobin LARGE H, Urine Glucose NEG 12/02/17 1925: Anion Gap 9, Estimated GFR > 60, BUN/Creatinine Ratio 35.0 H, Glucose 109 H, Lactic Acid 0.9, Calcium 9.2, Total Bilirubin 0.6, AST 31, ALT 44, Alkaline Phosphatase 94, Troponin I < 0.01, Juw-E-Nyonvltboeb Pept 286 H, Total Protein 6.9, Albumin 3.3 L, Globulin 3.6, Albumin/Globulin Ratio 0.9 L, D-Dimer High Sensitivty < 200, CBC w Diff MAN DIFF ORDERED, RBC 4.29 L, MCV 87.2, MCH 28.5, MCHC 32.7 L, RDW 14.9 H, MPV 8.8, Gran % 77.8 H, Lymphocytes % 12.4 L, Monocytes % 8.1, Eosinophils % 1.7, Basophils % 0, Absolute Granulocytes 15.3 H , Segmented Neutrophils 76 H, Absolute Lymphocytes 2.4, Lymphocytes 12 L, Monocytes 9, Absolute Monocytes 1.6 H, Eosinophils 3, Absolute Eosinophils 0.3, Absolute Basophils 0, Platelet Estimate VERIFIED BY SMEAR, Normocytic RBCs VERIFIED, Normochromic RBCs VERIFIED, Fld Total RBCs Counted 100 12/02/17 1915: Troponin I Cancelled Microbiology 12/03 0051 URINE ROUT: Urine Culture - RECD 12/02 2105 URINE ROUT: Urine Culture - RECD 59-year-old male with neurogenic bladder and recent onset bloody discharge from penis also reporting shortness of breath on 2L NC baseline, afib on eliquis. -Beavers catheter placed, per nurse no blood in urine -Leukocytosis, pyuria, lower lobe pneumonia. -Discussed with Dr. Sampson, Dr. Cifuentes, and MOD, will admit patient to the floors. Starting on Rocephin and azithromycin. -Patient signed off to Dr. Sampson at 12 am Diagnostic Imaging: Viewed by Me: Radiology Read. Discussed w/RAD: Radiology Read. Radiology Impression: PATIENT: ESTUARDO PEREZ PRESENT AGE: 67 PATIENT ACCOUNT NO: [id number] : 49 LOCATION: [facility] ORDERING PHYSICIAN: Katia PACKER SERVICE DATE: 12/02/17 EXAM TYPE: RAD - XRY- CHEST XRAY, TWO VIEWS EXAMINATION: XR CHEST CLINICAL INFORMATION: Shortness of breath. Presumptive diagnosis: Pneumonia vs. COPD. COMPARISON: 07/16/[address] chest dated 01/06/2017 TECHNIQUE: AP and lateral views of the chest FINDINGS: There is volume loss in the lower lobes bilaterally with associated linear opacities which are most compatible with atelectasis. Small areas of consolidation are possible. Probable small left pleural effusion. No pneumothorax. Heart is normal in size. Thoracic aorta is tortuous with mild calcific atherosclerosis. No acute findings. No appreciable pulmonary edema. Chronic changes of COPD are evident in the upper lobes. Degenerative disc disease is present in the thoracic spine. Bones are osteopenic. 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 IMPRESSION: 1. Chronic changes of COPD. 2. Low lung volumes with bibasilar atelectasis and a small left pleural effusion. Superimposed consolidation in the lower lobes is possible. DICTATED BY: Aiden Balbuena MD DATE/TIME DICTATED:12/02/172049 MULTI CARE TECHNICIAN:PAULO DATE/TIME TRANSCRIBED:12/02/172049 CONFIDENTIAL, DO NOT COPY WITHOUT APPROPRIATE AUTHORIZATION. <Electronically signed in Other Vendor System> SIGNED BY: Aiden Balbuena MD 12/02/172055 Initial ED EKG: NSR, no changes from prior EKG Hand-Off Endorsed To: Cruz Sampson DO Endorsed Time: 16 Pending: other (admit) (Katia Navarrete) Differential Diagnoses I considered the following diagnoses in my evaluation of the patient: (Cruz Sampson DO) Departure Departure Disposition: STILL A PATIENT Condition: Stable Clinical Impression Primary Impression: Leukocytosis Qualifiers: Leukocytosis type: unspecified Qualified Code: D72.829 - Elevated white blood cell count, unspecified Secondary Impressions: Pneumonia Qualifiers: Pneumonia type: due to unspecified organism Laterality: bilateral Lung location: lower lobe of lung Qualified Code: J18.1 - Lobar pneumonia, unspecified organism Referrals: Dominguez Serrano MD (PCP/Family) Departure Forms: Customer Survey General Discharge Information Admission Note Spoke With: Jose Rafael Cifuentes MD Documentation of Exam: Documentation of any treatments & extenuating circumstances including Concerns Regarding Discharge (functional status, medication knowledge or non-compliance, living conditions, etc.) that warrant an admission rather than observation: [ leukocytosis, b/l lower lobe pneumonia, bacteriuria, COPD on 2L NC, bloody penile discharge on Eliquis for afib] (Katia Navarrete) Admission Note Documentation of Exam: Documentation of any treatments & extenuating circumstances including Concerns Regarding Discharge (functional status, medication knowledge or non-compliance, living conditions, etc.) that warrant an admission rather than observation: PA/OIL HEAT TECHNICIAN Co-Sign Statement Statement: ED Attending supervision documentation- [X] I saw and evaluated the patient. I have also reviewed all the pertinent lab results and diagnostic results. I agree with the findings and the plan of care as documented in the PA's/OIL HEAT TECHNICIAN's documentation. [] I have reviewed the ED Record and agree with the PA's/OIL HEAT TECHNICIAN's documentation. [] Additions or exceptions (if any) to the PAs/OIL HEAT TECHNICIAN's note and plan are summarized below: [] I saw and evaluated the patient. He had bilateral rhonchi on my exam. Urine was clearing. He had significant leukocytosis. He is being admitted to the hospital for hematuria, pyelonephritis, pneumonia. 12/03/17 (Cruz Smapson DO) Critical Care Note Critical Care Note Critical Care Time: non-applicable (Katia Navarrete)
[2017-12-02 20:01] LABS: ABSOLUTE BASOPHIL COUNT 0 /CUMM (0.0-0.2); ABSOLUTE EOSINOPHIL COUNT 0.3 /CUMM (0.0-0.7); ABSOLUTE GRANULOCYTE CT 15.3 /CUMM (1.4-6.5); ABSOLUTE LYMPH COUNT 2.4 /CUMM (1.2-3.4); ABSOLUTE MONOCYTE COUNT 1.6 /CUMM (0.10-0.60); BASOPHIL % 0 % (0.0-2.0); EOSINOPHIL % 1.7 % (0-5); GRANULOCYTE % 77.8 % (42.2-75.2); HEMATOCRIT 37.4 % (42-52); MEAN CORPUSCULAR HGB 28.5 PG (27.0-31.0); MEAN CORPUSCULAR HGB CONC 32.7 G/DL (33.0-37.0); MEAN CORPUSCULAR VOLUME 87.2 FL (80.0-94.0); MEAN PLATELET VOLUME 8.8 FL (7.4-10.4); PLATELET COUNT 311 /CUMM (130-400); RBC DISTRIBUTION WIDTH 14.9 % (11.5-14.5); RED BLOOD CELL CT 4.29 /CUMM (4.70-6.10)
[2017-12-02 20:05] LABS: WHITE BLOOD CELL COUNT 19.7 /CUMM (4.8-10.8)
--- NOTE | 2017-12-02 20:56 | RADIOLOGY REPORT ---
EXAMINATION: XR CHEST CLINICAL INFORMATION: Shortness of breath. Presumptive diagnosis: Pneumonia vs. COPD. COMPARISON: 07/16/[address] chest dated 01/06/2017 TECHNIQUE: AP and lateral views of the chest FINDINGS: There is volume loss in the lower lobes bilaterally with associated linear opacities which are most compatible with atelectasis. Small areas of consolidation are possible. Probable small left pleural effusion. No pneumothorax. Heart is normal in size. Thoracic aorta is tortuous with mild calcific atherosclerosis. No acute findings. No appreciable pulmonary edema. Chronic changes of COPD are evident in the upper lobes. Degenerative disc disease is present in the thoracic spine. Bones are osteopenic. 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 IMPRESSION: 1. Chronic changes of COPD. 2. Low lung volumes with bibasilar atelectasis and a small left pleural effusion. Superimposed consolidation in the lower lobes is possible.
--- NOTE | 2017-12-02 23:21 | History & Physical ---
Yesenia VOGEL,[facility] 12/02/17 1129: General Information and HPI History of Present Illness: Mr. Park is a 59-year-old male with past medical history of atrial fibrillation on apixaban, [place] status post 2 stents, COPD on 2 L nasal cannula, and paraplegia with an indwelling Orellana followed by Dr. Polk who presents with a clogged Orelalna and dysuria of several day duration. He received ciprofloxacin for Dr. Polk and took 1 dose today. He also has some productive cough that is chronic. He denies any fever, chills, chest pain, dull pain, nausea, vomiting, diarrhea. He is a former smoker, denies alcohol or drug use. 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 yes Functional Ability ADLs Needs Assist: dressing, eating, toileting, bathing. Ambulation: wheelchair IADLs Independent: shopping, housework, finances, food prep, telephone, transportation , medication admin. Review of Systems Review of Systems Constitutional: Reports: no symptoms. EENTM: Reports: no symptoms. Cardiovascular: Reports: no symptoms. Respiratory: Reports: no symptoms. GI: Reports: no symptoms. Genitourinary: Reports: see HPI. Musculoskeletal: Reports: no symptoms. Skin: Reports: no symptoms. Neurological/Psychological: Reports: no symptoms. Hematologic/Endocrine: Reports: no symptoms. Immunologic/Allergic: Reports: no symptoms. All Other Systems: Reviewed and Negative Exam & Diagnostic Data Last 24 Hrs of Vital Signs/I&O Vital Signs Date Time Temp Pulse Resp B/P B/P Pulse O2 O2 Flow FiO2 Mean Ox Delivery Rate 12/024 90 18 136/63 95 Room Air 12/02 2022 89 18 148/95 96 Room Air 12/02 1930 Room Air 12/02 192 98 Nasal 2.0L Cannula 12/02 1842 99.1 88 18 160/74 97 Room Air Physical Exam General Appearance Alert, Oriented X3, Cooperative, No Acute Distress Cardiovascular Regular Rate, Normal S1, Normal S2 Lungs Clear to Auscultation Abdomen Normal Bowel Sounds, Soft, No Tenderness Extremities No Edema, Normal Pulses, No Tenderness/Swelling Last 24 Hrs of Labs/Bryan: Laboratory Tests 12/02/172210: Lactic Acid Cancelled 12/02/172105: Urine Color YEL, Urine Clarity CLDY H, Urine pH 6.5, Ur Specific [place] 1.010, Urine Protein 30 H, Urine Ketones 15 H, Urine Nitrite NEG, Urine Bilirubin NEG , Urine Urobilinogen 0.2, Ur Leukocyte Esterase LARGE H, Ur Microscopic SEDIMENT EXAMINED, Urine RBC 5-10 H, Urine WBC > 75 H, Ur Epithelial Cells RARE, Urine Bacteria FEW H, Urine Hemoglobin LARGE H, Urine Glucose NEG 12/02/171924: Anion Gap 9, Estimated GFR > 60, BUN/Creatinine Ratio 35.0 H, Glucose 109 H, Lactic Acid 0.9, Calcium 9.2, Total Bilirubin 0.6, AST 31, ALT 44, Alkaline Phosphatase 94, Troponin I < 0.01, Bds-A-Qaqinotwdnj Pept 286 H, Total Protein 6.9, Albumin 3.3 L, Globulin 3.6, Albumin/Globulin Ratio 0.9 L, D-Dimer High Sensitivty < 200, CBC w Diff MAN DIFF ORDERED, RBC 4.29 L, MCV 87.2, MCH 28.5, MCHC 32.7 L, RDW 14.9 H, MPV 8.8, Gran % 77.8 H, Lymphocytes % 12.4 L, Monocytes % 8.1, Eosinophils % 1.7, Basophils % 0, Absolute Granulocytes 15.3 H , Segmented Neutrophils 76 H, Absolute Lymphocytes 2.4, Lymphocytes 12 L, Monocytes 9, Absolute Monocytes 1.6 H, Eosinophils 3, Absolute Eosinophils 0.3, Absolute Basophils 0, Platelet Estimate VERIFIED BY SMEAR, Normocytic RBCs VERIFIED, Normochromic RBCs VERIFIED, Fld Total RBCs Counted 100 12/02/171914: Troponin I Cancelled Microbiology 12/02 2105 URINE ROUT: Urine Culture - RECD Assessment/Plan Assessment: Mr. Park is a 59-year-old male with past medical history of atrial fibrillation on apixaban, [place] status post 2 stents, COPD on 2 L nasal cannula, and paraplegia with an indwelling Orellana followed by Dr. Polk who presents with a clogged Orellana and dysuria of several day duration. On presentation, vital signs were T 99.1, HR 88, RR 18, BP 160/74, saturating 97 % on room air.. General: Patient appears stated age, alert and orientedx3. HEENT: PERRL. No goiter. No palpable lymph nodes. Cardiovascular: Regular rate and rhythm, no murmurs, rubs, or gallops. Lungs: Clear to auscultation bilaterally. Abdomen: Normal bowel sounds. Nontender to palpation in all four quadrants. Orellana draining yellow urine. Ext: No edema, pulses normal. Laboratories were significant for white blood cell count 19.7, hemoglobin 12.2, sodium 136, chloride 94, carbon dioxide 33, BUN 21, BNP 286. Urinalysis showed greater than 75 WBC. Chest x-ray showed atelectasis. He will be admitted to general medicine and treated for the following problems: 1. Catheter associated urinary tract infection #Catheter associated urinary tract infection: Patient has grown Proteus resistant to ciprofloxacin in the past. He is now presenting with dysuria and a clogged Orellana in the setting of leukocytosis without fever. -Ceftriaxone -Urine culture -Urology consult -Gentle IV fluid hydration #Chronic medical problems -Continue home medications -Please confirm home meds in the morning with pharmacy. DVT prophylaxis with apixaban Heart healthy diet DNR/DNI As Ranked By This Provider Problem List: 1. UTI (urinary tract infection) Core Measures/Misc (02/06) Acute Coronary Syndrome ACS Diagnosis: No Congestive Heart Failure Congestive Heart Failure Diagnosis No Cerebrovascular Accident CVA/TIA Diagnosis: No VTE (View Protocol) VTE Risk Factors Age>40 No Mechanical VTE Prophylaxis d/t N/A MechProphylax Ordered No VTE Pharm Prophylaxis d/t Supratherapeutic INR Sepsis (View protocol) Sepsis Present: No If YES complete Sepsis Event Note If YES complete Sepsis Event Note [place] 12/03/17 0142: General Information and HPI MD Statement: I have seen and personally examined ESTUARDO PARK and documented this H&P. The patient is a 67 year old M who presented with a patient stated chief complaint of [UTI]. Source of Information: patient Exam Limitations: no limitations Allergies/Medications Allergies: Coded Allergies: heparin (Intermediate, SWELLING, RASH 09/05/17) vancomycin (Intermediate, HIVES, SKIN CRACKES, TURNS RED, SWELLS AND PEELS 09/05) warfarin (From COUMADIN) (Intermediate, NOT EFFECTIVE CAN NOT GET LEVELS ABOVE 1 10/23/17) Home Med list Albuterol Sulfate (Ventolin Hfa) 90 MCG HFA.AER.AD 2 PUF INH AD PRN COPD ( Reported) Albuterol Sulfate 2.5 MG/3 ML (0.083 %) VIAL.NEB 1 Vial INH/MATT Q4P PRN COPD (Reported) Apixaban (Eliquis) 5 MG TABLET 5 MG PO BID atrial fibrillation Ascorbate Calcium (Vitamin C) 500 MG TABLET 1 TAB PO BID SUPPLEMENT (Reported ) Atomoxetine HCl (Strattera) 40 MG CAPSULE 1 CAP PO QAM MENTAL HEALTH ( Reported) Baclofen 20 MG TABLET 1 TAB PO BID MUSCLE RELAXER (Reported) Bisacodyl (Dulcolax) 10 MG SUPP.RECT 1 SUP RC Q48 GI (Reported) Budesonide/Formoterol Fumarate (Symbicort 80-4.5 Mcg Inhaler) 80 MCG-4.5 MCG/ ACTUATION HFA.AER.AD 2 PUF INH BID COPD (Reported) Docusate Sodium (Stool Softener) 100 MG CAPSULE 1 CAP PO DAILY STOOL SOFTENER (Reported) Evolocumab (Repathcristian Fitzgerald) 140 MG/ML PEN.INJCTR 1 ML SC Q 2 WEEKS CHOLESTEROL (Reported) Furosemide 20 MG TABLET 3 TAB PO Q48 DIURETIC (Reported) Gabapentin 300 MG CAPSULE 2 CAP PO BID NERVE PAIN (Reported) Guaifenesin (Mucinex) 600 MG TAB.ER.12H 1 TAB PO BID CONGESTION (Reported) Hydroxyzine HCl (hydrOXYzine HCl) 10 MG TABLET 1 TAB PO BID PRN ANXIETY ( Reported) Lactobacillus Acidophilus (Acidophilus) 1 EACH CAPSULE 1 CAP PO BID PROBIOTIC (Reported) Magnesium Oxide (Magnesium) 400 MG CAPSULE 1 CAP PO 0600 SUPPLEMENT (Reported ) Metoprolol Succ XL (Toprol XL) 25 MG TAB 1 TAB PO DAILY HEART (Reported) Montelukast Sodium (Singulair) 10 MG TABLET 1 TAB PO DAILY ALLERGIES ( Reported) Multivitamin (Daily Value) 1 EACH TABLET 1 TAB PO DAILY VITAMIN SUPPORT ( Reported) Nortriptyline HCl 10 MG CAPSULE 1 CAP PO DAILY mental health (Reported) Omeprazole 20 MG CAPSULE.DR 1 CAP PO DAILY ACID REFLUX (Reported) Oxycodone HCl/Acetaminophen (Oxycodone-Acetaminophen 5-325) 5 MG-325 MG TABLET 1 TAB PO Q4H PRN PAIN (Reported) Potassium Chloride 20 MEQ TAB.ER.PRT 1 TAB PO DAILY SUPPLEMENT (Reported) Rifampin (Rifadin) 300 MG CAPSULE 300 MG PO BID MRSA (Reported) Sotalol (Betapace) 80 MG TABLET 80 MG PO BID AARYTHMIAS Tiotropium [place] (Spiriva) 18 MCG CAP.W.DEV 1 CAP INH DAILY BREATHING PROBLEMS (Reported) Past History Medical History Cardiovascular: AFIB, hypertension, hyperlipidemia, myocardial infarction Respiratory: COPD, OXYGEN DEPEND 2L Renal: neurogenic bladder Psychiatric: anxiety Past Family/Social History Psychosocial History ETOH Use: denies use Review of Systems Comments 12 point review of systems positive documented in HPI Exam & Diagnostic Data Last 24 Hrs of Vital Signs/I&O Vital Signs Date Time Temp Pulse Resp B/P B/P Pulse O2 O2 Flow FiO2 Mean Ox Delivery Rate 12/03 0033 99.0 90 18 130/62 98 Room Air 12/02 2254 90 18 136/63 95 Room Air 12/02 2023 89 18 148/95 96 Room Air 12/02 1930 Room Air 12/02 1921 98 Nasal 2.0L Cannula 12/02 1843 99.1 88 18 160/74 97 Room Air Intake & Output 12/03 0800 12/03 0000 12/02 1600 Intake Total Output Total Balance Patient 250 lb Weight Weight Estimated Measurement Method Physical Exam General Appearance Alert, Oriented X3, Cooperative, No Acute Distress HEENT Atraumatic, PERRLA, EOMI Neck Supple, No JVD Cardiovascular Regular Rate, Normal S1, Normal S2 Lungs Clear to Auscultation Abdomen Normal Bowel Sounds, Soft, No Tenderness Extremities No Clubbing, No Edema, Normal Pulses, No Tenderness/Swelling Last 24 Hrs of Labs/Bryan: Laboratory Tests 12/02/172210: Lactic Acid Cancelled 12/02/172105: Urine Color YEL, Urine Clarity CLDY H, Urine pH 6.5, Ur Specific [place] 1.010, Urine Protein 30 H, Urine Ketones 15 H, Urine Nitrite NEG, Urine Bilirubin NEG , Urine Urobilinogen 0.2, Ur Leukocyte Esterase LARGE H, Ur Microscopic SEDIMENT EXAMINED, Urine RBC 5-10 H, Urine WBC > 75 H, Ur Epithelial Cells RARE, Urine Bacteria FEW H, Urine Hemoglobin LARGE H, Urine Glucose NEG 12/02/17 1925: Anion Gap 9, Estimated GFR > 60, BUN/Creatinine Ratio 35.0 H, Glucose 109 H, Lactic Acid 0.9, Calcium 9.2, Total Bilirubin 0.6, AST 31, ALT 44, Alkaline Phosphatase 94, Troponin I < 0.01, Krc-B-Tqgbinzerll Pept 286 H, Total Protein 6.9, Albumin 3.3 L, Globulin 3.6, Albumin/Globulin Ratio 0.9 L, D-Dimer High Sensitivty < 200, CBC w Diff MAN DIFF ORDERED, RBC 4.29 L, MCV 87.2, MCH 28.5, MCHC 32.7 L, RDW 14.9 H, MPV 8.8, Gran % 77.8 H, Lymphocytes % 12.4 L, Monocytes % 8.1, Eosinophils % 1.7, Basophils % 0, Absolute Granulocytes 15.3 H , Segmented Neutrophils 76 H, Absolute Lymphocytes 2.4, Lymphocytes 12 L, Monocytes 9, Absolute Monocytes 1.6 H, Eosinophils 3, Absolute Eosinophils 0.3, Absolute Basophils 0, Platelet Estimate VERIFIED BY SMEAR, Normocytic RBCs VERIFIED, Normochromic RBCs VERIFIED, Fld Total RBCs Counted 100 12/02/17 1915: Troponin I Cancelled Microbiology 12/03 0051 URINE ROUT: Urine Culture - RECD 12/02 2105 URINE ROUT: Urine Culture - RECD Core Measures/Misc (02/06) Sepsis (View protocol) If YES complete Sepsis Event Note If YES complete Sepsis Event Note Attending MD Review Statement Attending Statement Attending MD Statement: examined this patient, 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 Polk who presents with a clogged Orellana and dysuria of several day duration. Found to have a low grade fever and an elevated WBC count 19.7. Starting gentle hydration and CTX.
[2017-12-03 01:50] VITALS: BP 122/70
[2017-12-03 07:24] VITALS: BP 154/86
[2017-12-03 08:30] LABS: ABSOLUTE BASOPHIL COUNT 0 /CUMM (0.0-0.2); ABSOLUTE EOSINOPHIL COUNT 0.5 /CUMM (0.0-0.7); ABSOLUTE GRANULOCYTE CT 11.4 /CUMM (1.4-6.5); ABSOLUTE LYMPH COUNT 2.6 /CUMM (1.2-3.4); BASOPHIL % 0.3 % (0.0-2.0); EOSINOPHIL % 2.9 % (0-5); GRANULOCYTE % 73.8 % (42.2-75.2); HEMATOCRIT 34.7 % (42-52); MEAN CORPUSCULAR HGB 28.6 PG (27.0-31.0); MEAN CORPUSCULAR HGB CONC 32.6 G/DL (33.0-37.0); MEAN CORPUSCULAR VOLUME 87.8 FL (80.0-94.0); MEAN PLATELET VOLUME 8.7 FL (7.4-10.4); PLATELET COUNT 298 /CUMM (130-400); RBC DISTRIBUTION WIDTH 14.5 % (11.5-14.5); RED BLOOD CELL CT 3.95 /CUMM (4.70-6.10); WHITE BLOOD CELL COUNT 15.5 /CUMM (4.8-10.8)
[2017-12-03 14:23] VITALS: BP 130/70
--- NOTE | 2017-12-03 15:03 | PN- Housestaff ---
See Addendum Subjective Follow-up For: Catheter associated UTI Subjective: Patient seen and examined at bedside. Patient states that he is feeling okay, did not have any acute events overnight. Patient states that he does not really have too much burning with urination. Patient states that he has not had a fever, although does feel warm. Patient denied chest pain/shortness of breath/ abdominal pain/lower extremity edema. Review of Systems Constitutional: Reports: see HPI. Objective Last 24 Hrs of Vital Signs/I&O Vital Signs Date Time Temp Pulse Resp B/P B/P Pulse O2 O2 Flow FiO2 Mean Ox Delivery Rate 12/03 1423 98.8 85 22 130/70 98 12/03 0805 80 154/86 12/03 0800 Nasal 2.0L Cannula 12/03 0724 98.5 86 20 154/86 97 12/03 0255 88 98 12/03 0254 98 Nasal 2.0L Cannula 12/03 0150 98.3 85 24 122/70 96 Nasal 2.0L Cannula 12/03 0115 96 Nasal 2.0L Cannula 12/03 0033 99.0 90 18 130/62 98 Room Air 12/02 2254 90 18 136/63 95 Room Air 12/02 2023 89 18 148/95 96 Room Air 12/02 1930 Room Air 12/02 1921 98 Nasal 2.0L Cannula 12/02 1843 99.1 88 18 160/74 97 Room Air Intake & Output 12/03 1600 12/03 0800 12/03 0000 Intake Total 2000 Output Total 650 300 Balance 1350 -300 Intake, IV 500 Intake, Oral 1500 Number 0 Bowel Movements Output, Urine 650 300 Patient 223 lb 250 lb Weight Weight Bed scale Estimated Measurement Method Physical Exam General Appearance: Alert, Oriented X3, Cooperative, No Acute Distress Skin Temp/Moisture Exam: Hot/Diaphoretic Cardiovascular: Regular Rate, Normal S1, Normal S2 Lungs: Clear to Auscultation, Normal Air Movement Abdomen: Soft, No Tenderness Extremities: No Edema, Normal Pulses Reproductive (MALE) indwelling li in place Current Medications: Current Medications Sig/Danni Start time Last Medication Dose Route Stop Time Status Admin Acetaminophen 650 MG Q6P PRN 12/02 2345 AC 12/03 PO 1419 Albuterol Sulfate 3 ML ONCE ONE 12/03 0245 DC 12/03 INH 12/03 0246 0238 Albuterol Sulfate 3 ML Q4P PRN 12/02 2345 AC 12/03 INH 0637 Albuterol Sulfate 2 PUF Q6P PRN 12/02 2345 AC INH Albuterol Sulfate 3 ML ONCE ONE 12/02 1900 DC 12/02 INH 12/02 190 191 Apixaban 5 MG BID 12/03 0900 AC 12/03 PO 0804 Azithromycin 500 MG ONCE ONE 12/02 2345 DC 12/03 Sodium Chloride 250 ML IV 12/03 0044 0032 Baclofen 20 MG BID 12/03 0900 AC 12/03 PO 0804 Bisacodyl 10 MG Q48 12/04 0900 AC NV Budesonide/ 2 PUF BID 12/03 0900 AC 12/03 Formoterol Fumarate INH 0800 Ceftriaxone Sodium 1,000 MG DAILY@0000 12/04 0000 AC IV Ceftriaxone Sodium 1,000 MG DAILY 12/03 0900 DC Sodium Chloride 100 ML IV Ceftriaxone Sodium 0 .STK-MED ONE 12/02 2359 DC .ROUTE Ceftriaxone Sodium 1,000 MG ONCE ONE 12/02 2345 DC 12/03 IV 12/02 2346 0032 Docusate Sodium 100 MG DAILY 12/03 0900 AC 12/03 PO 0804 Furosemide 60 MG Q48 12/04 0900 AC PO Gabapentin 600 MG BID 12/03 0900 AC 12/03 PO 0804 Guaifenesin 600 MG BID 12/03 0900 AC 12/03 PO 0805 Hydroxyzine HCl 10 MG BID PRN 12/02 2345 AC PO Ipratropium [place] 2.5 ML ONCE ONE 12/02 1900 DC 12/02 INH 12/02 190 191 Lactated Ringer's 1,000 ML ONCE ONE 12/02 2345 DC 12/03 IV 12/03 0744 0032 Magnesium Oxide 400 MG DAILY 12/03 0900 AC PO Metoprolol Succinate 25 MG DAILY 12/03 0900 AC 12/03 PO 0805 Montelukast Sodium 10 MG DAILY 12/03 0900 AC 12/03 PO 0805 Nortriptyline HCl 10 MG DAILY 12/03 0900 AC 12/03 PO 0805 Omeprazole 20 MG DAILY 12/03 0900 AC 12/03 PO 0804 Oxycodone/ 1 TAB Q4H PRN 12/02 2345 AC Acetaminophen PO Potassium Chloride 20 MEQ DAILY 12/03 0900 AC 12/03 PO 0804 Sotalol HCl 80 MG BID 12/03 899 AC 12/03 PO 08 Tiotropium [place] 1 PUF DAILY 12/03 899 AC 12/03 INH 0801 Last 24 Hrs of Lab/Bryan Results Last 24 Hrs of Labs/Mics: Laboratory Tests 12/03/17 0610: Anion Gap 8, Estimated GFR > 60, BUN/Creatinine Ratio 34.0 H, Magnesium 1.9, CBC w Diff NO MAN DIFF REQ, RBC 3.95 L, MCV 87.8, MCH 28.6, MCHC 32.6 L, RDW 14.5, MPV 8.7, Gran % 73.8, Lymphocytes % 16.5 L, Monocytes % 6.5, Eosinophils % 2.9, Basophils % 0.3, Absolute Granulocytes 11.4 H, Absolute Lymphocytes 2.6, Absolute Monocytes 1.0 H, Absolute Eosinophils 0.5, Absolute Basophils 0 12/02/172210: Lactic Acid Cancelled 12/02/172105: Urine Color YEL, Urine Clarity CLDY H, Urine pH 6.5, Ur Specific [place] 1.010, Urine Protein 30 H, Urine Ketones 15 H, Urine Nitrite NEG, Urine Bilirubin NEG , Urine Urobilinogen 0.2, Ur Leukocyte Esterase LARGE H, Ur Microscopic SEDIMENT EXAMINED, Urine RBC 5-10 H, Urine WBC > 75 H, Ur Epithelial Cells RARE, Urine Bacteria FEW H, Urine Hemoglobin LARGE H, Urine Glucose NEG 12/02/17 1925: Anion Gap 9, Estimated GFR > 60, BUN/Creatinine Ratio 35.0 H, Glucose 109 H, Lactic Acid 0.9, Calcium 9.2, Total Bilirubin 0.6, AST 31, ALT 44, Alkaline Phosphatase 94, Troponin I < 0.01, Qjh-O-Roqpnupwrba Pept 286 H, Total Protein 6.9, Albumin 3.3 L, Globulin 3.6, Albumin/Globulin Ratio 0.9 L, D-Dimer High Sensitivty < 200, CBC w Diff MAN DIFF ORDERED, RBC 4.29 L, MCV 87.2, MCH 28.5, MCHC 32.7 L, RDW 14.9 H, MPV 8.8, Gran % 77.8 H, Lymphocytes % 12.4 L, Monocytes % 8.1, Eosinophils % 1.7, Basophils % 0, Absolute Granulocytes 15.3 H , Segmented Neutrophils 76 H, Absolute Lymphocytes 2.4, Lymphocytes 12 L, Monocytes 9, Absolute Monocytes 1.6 H, Eosinophils 3, Absolute Eosinophils 0.3, Absolute Basophils 0, Platelet Estimate VERIFIED BY SMEAR, Normocytic RBCs VERIFIED, Normochromic RBCs VERIFIED, Fld Total RBCs Counted 100 12/02/17 1915: Troponin I Cancelled Microbiology 12/03 0051 URINE ROUT: Urine Culture - RECD 12/02 2105 URINE ROUT: Urine Culture - RES Assessment/Plan Assessment: Mr. Park is a 59-year-old male with past medical history of atrial fibrillation on apixaban, [place] status post 2 stents, COPD on 2 L nasal cannula, and paraplegia with an indwelling Li followed by Dr. Polk who presents with a clogged Li and dysuria of several day duration. Being treated for catheter associated UTI #Catheter associated UTI -Leukocytosis 19.7 trended down to 15.5 today, will follow up with his CBCs tomorrow morning. #Bedsores (prior to admission) DVT prophylaxis IV access Tolerating regular diet Disposition Problem List: 1. Clot hematuria 2. Leukocytosis Pain Ratin Pain Location: suprapubic Pain Goal: Pain 7 or less Pain Plan: Pain pathway Tomorrow's Labs & Rationales: CBC monitor leukocytosis
[2017-12-03] MEDS ORDERED: TRAZODONE HCL50 M1 PO (15:27)
[2017-12-03 18:45] VITALS: BP 140/60
[2017-12-03 20:23] VITALS: BP 134/60
[2017-12-04 06:44] VITALS: BP 130/60
[2017-12-04 07:59] LABS: ABSOLUTE BASOPHIL COUNT 0 /CUMM (0.0-0.2); ABSOLUTE EOSINOPHIL COUNT 0.5 /CUMM (0.0-0.7); ABSOLUTE GRANULOCYTE CT 6.8 /CUMM (1.4-6.5); ABSOLUTE LYMPH COUNT 2.2 /CUMM (1.2-3.4); BASOPHIL % 0.2 % (0.0-2.0); EOSINOPHIL % 5.1 % (0-5); GRANULOCYTE % 64.5 % (42.2-75.2); HEMATOCRIT 33.3 % (42-52); MEAN CORPUSCULAR HGB 28.5 PG (27.0-31.0); MEAN CORPUSCULAR HGB CONC 32.3 G/DL (33.0-37.0); MEAN CORPUSCULAR VOLUME 88.1 FL (80.0-94.0); MEAN PLATELET VOLUME 7.9 FL (7.4-10.4); PLATELET COUNT 270 /CUMM (130-400); RBC DISTRIBUTION WIDTH 14.9 % (11.5-14.5); RED BLOOD CELL CT 3.78 /CUMM (4.70-6.10); WHITE BLOOD CELL COUNT 10.6 /CUMM (4.8-10.8)
--- NOTE | 2017-12-04 08:28 | PN- Housestaff ---
See Addendum Subjective Follow-up For: UTI Subjective: Patient seen and evaluated bedside today. Patient states that he feels somewhat better, still some pain at the meatus of the penis. Patient states that he slept very well overnight. Patient states that he would like to see Dr. Bustillos if she is in the hospital. No acute events overnight. Patient denied fever/chills/night sweats/chest pain/shortness of breath/abdominal pain/lower extremity edema Review of Systems Constitutional: Reports: see HPI. Objective Last 24 Hrs of Vital Signs/I&O Vital Signs Date Time Temp Pulse Resp B/P B/P Pulse O2 O2 Flow FiO2 Mean Ox Delivery Rate 12/04 1400 98.0 79 17 118/58 94 Nasal 2.0L Cannula 12/04 0845 95 Nasal 2.0L Cannula 12/04 0803 75 128/64 12/04 0800 Nasal 2.0L Cannula 12/04 0644 98.3 68 18 130/60 97 Nasal 2.0L Cannula 12/04 0052 76 96 12/04 0000 96 BIPAP 12/03 2211 78 96 12/03 2023 98.4 84 16 134/60 94 Nasal 2.0L Cannula 12/03 1845 84 140/60 Intake & Output 12/04 1600 15 0800 12/04 0000 Intake Total 830 310 480 Output Total 800 700 850 Balance 30 -390 -370 Intake, IV 130 10 Intake, Oral 700 300 480 Number 0 1 Bowel Movements Output, Urine 800 700 850 Physical Exam General Appearance: Alert, Oriented X3, Cooperative, No Acute Distress Skin Temp/Moisture Exam: Warm/Dry Cardiovascular: Regular Rate, Normal S1, Normal S2 Lungs: Clear to Auscultation, Normal Air Movement Abdomen: Soft, No Tenderness Neurological: Sensation Intact Extremities: No Edema Reproductive (MALE) [address], mild pain at meatus, no erythema noted Assessment/Plan Assessment: Mr. Park is a 59-year-old male with past medical history of atrial fibrillation on apixaban, [place] status post 2 stents, COPD on 2 L nasal cannula, and paraplegia with an indwelling Li followed by Dr. Polk who presents with a clogged Li and dysuria of several day duration. Being treated for catheter associated UTI #Catheter associated UTI Likely Pseudomonas, will have to switch antibiotics scan today, will f/u on results -Leukocytosis 15.5 trended down to 10.6 today, leukocytosis is resolved #Bedsores (prior to admission) DVT prophylaxis IV access Tolerating regular diet Disposition DNR/DNI Problem List: 1. Clot hematuria 2. Leukocytosis Pain Ratin Pain Location: na Pain Goal: Remain pain free Pain Plan: pain pathway Tomorrow's Labs & Rationales: na
--- NOTE | 2017-12-04 09:36 | Cons- Urology ---
General Information and HPI Consulting Request Date of Consult: 11/27/17 Requested By: Mango VOGEL,Romelia Reason for Consult: UTI Source of Information: patient Exam Limitations: no limitations History of Present Illness: 67 yr old with urinary retention and frequent UTIs: again presents with UTI despite suppression abx. As previously discussed with pt, TURP-to facilitate voiding or SPT for continuous drainage avoiding penile/perineal area discussed with pt. Pt to have UTI tx presently and will return when UTI resolved for whatever procedure pt decides he can live with. Allergies/Medications Allergies: Coded Allergies: heparin (Intermediate, SWELLING, RASH 09/05/17) vancomycin (Intermediate, HIVES, SKIN CRACKES, TURNS RED, SWELLS AND PEELS 09/05) warfarin (From COUMADIN) (Intermediate, NOT EFFECTIVE CAN NOT GET LEVELS ABOVE 1 10/23/17) Home Med List: Albuterol Sulfate (Ventolin Hfa) 90 MCG HFA.AER.AD 2 PUF INH AD PRN COPD ( Reported) Albuterol Sulfate 2.5 MG/3 ML (0.083 %) VIAL.NEB 1 Vial INH/MATT Q4P PRN COPD (Reported) Apixaban (Eliquis) 5 MG TABLET 5 MG PO BID atrial fibrillation Ascorbate Calcium (Vitamin C) 500 MG TABLET 1 TAB PO BID SUPPLEMENT (Reported ) Atomoxetine HCl (Strattera) 40 MG CAPSULE 1 CAP PO QAM MENTAL HEALTH ( Reported) Baclofen 20 MG TABLET 1 TAB PO BID MUSCLE RELAXER (Reported) Bisacodyl (Dulcolax) 10 MG SUPP.RECT 1 SUP RC Q48 GI (Reported) Budesonide/Formoterol Fumarate (Symbicort 160-4.5 Mcg Inhaler) 160 MCG-4.5 MCG/ ACTUATION HFA.AER.AD 2 PUF INH BID copd (Reported) Docusate Sodium (Stool Softener) 100 MG CAPSULE 1 CAP PO DAILY STOOL SOFTENER (Reported) Evolocumab (Repatha Sureclick) 140 MG/ML PEN.INJCTR 1 ML SC Q 2 WEEKS CHOLESTEROL (Reported) Furosemide 20 MG TABLET 3 TAB PO Q48 DIURETIC (Reported) Gabapentin 300 MG CAPSULE 2 CAP PO BID NERVE PAIN (Reported) Guaifenesin (Mucinex) 600 MG TAB.ER.12H 1 TAB PO BID CONGESTION (Reported) Hydroxyzine HCl (hydrOXYzine HCl) 10 MG TABLET 1 TAB PO BID PRN ANXIETY ( Reported) Lactobacillus Acidophilus (Acidophilus) 1 EACH CAPSULE 1 CAP PO BID PROBIOTIC (Reported) Magnesium Oxide (Magnesium) 400 MG CAPSULE 1 CAP PO 0600 SUPPLEMENT (Reported ) Metoprolol Succ XL (Toprol XL) 25 MG TAB 1 TAB PO DAILY HEART (Reported) Montelukast Sodium (Singulair) 10 MG TABLET 1 TAB PO DAILY ALLERGIES ( Reported) Multivitamin (Daily Value) 1 EACH TABLET 1 TAB PO DAILY VITAMIN SUPPORT ( Reported) Nortriptyline HCl 10 MG CAPSULE 1 CAP PO DAILY mental health (Reported) Omeprazole 20 MG CAPSULE.DR 1 CAP PO DAILY ACID REFLUX (Reported) Oxycodone HCl/Acetaminophen (Oxycodone-Acetaminophen 5-325) 5 MG-325 MG TABLET 1 TAB PO Q4H PRN PAIN (Reported) Potassium Chloride 20 MEQ TAB.ER.PRT 1 TAB PO DAILY SUPPLEMENT (Reported) Rifampin (Rifadin) 300 MG CAPSULE 300 MG PO BID MRSA (Reported) Sotalol (Betapace) 80 MG TABLET 80 MG PO BID AARYTHMIAS Tiotropium [place] (Spiriva) 18 MCG CAP.W.DEV 1 CAP INH DAILY BREATHING PROBLEMS (Reported) Trazodone HCl 50 MG TABLET 1 TAB PO QHS agitation (Reported) Current Medications: Current Medications Sig/Danni Start time Last Medication Dose Route Stop Time Status Admin Acetaminophen 650 MG .STK-MED ONE 12/05 2146 DC PO 12/05 214 Acetaminophen 650 MG Q6P PRN 12/02 2345 AC 12/05 PO 2149 Albuterol Sulfate 3 ML EVERY 4 HRS/AWAKE 12/03 2000 AC 12/06 INH 1145 Albuterol Sulfate 2 PUF Q6P PRN 12/02 2345 AC INH Apixaban 5 MG BID 12/03 0900 AC 12/06 PO 0817 Baclofen 20 MG BID 12/03 0900 AC 12/06 PO 0817 Bisacodyl 10 MG Q48 12/03 1645 AC 12/05 OR 1000 Budesonide/ 2 PUF BID 12/03 0900 AC 12/06 Formoterol Fumarate INH 0815 Ceftriaxone Sodium 1,000 MG DAILY@0000 12/04 0000 DC 12/05 IV 2332 Docusate Sodium 100 MG DAILY 12/03 0900 AC 12/06 PO 0817 Furosemide 60 MG Q48 12/03 1800 AC 12/05 PO 0807 Gabapentin 600 MG BID 12/03 899 AC 12/06 PO 0817 Guaifenesin 600 MG BID 12/03 899 AC 12/06 PO 0817 Hydroxyzine HCl 10 MG BID PRN 12/02 2345 AC PO Magnesium Oxide 400 MG DAILY 12/03 899 AC 12/06 PO 0817 Metoprolol Succinate 25 MG DAILY 12/03 899 AC 12/06 PO 0817 Montelukast Sodium 10 MG DAILY 12/03 899 AC 12/06 PO 0817 Nortriptyline HCl 10 MG DAILY 12/03 899 AC 12/06 PO 0816 Omeprazole 20 MG DAILY 12/03 899 AC 12/06 PO 0816 Oxycodone/ 1 TAB Q4H PRN 12/02 2345 AC 12/06 Acetaminophen PO 1156 Patient Medication 1 ED ONE ONE 12/05 1944 DC Teaching ED 12/05 1945 Potassium Chloride 20 MEQ DAILY 12/03 899 AC 12/06 PO 0817 Sotalol HCl 80 MG BID 12/03 899 AC 12/06 PO 0817 Tiotropium [place] 1 PUF DAILY 12/03 899 AC 12/06 INH 0816 Past History Medical History Blood Transfusion Hx: Yes Neurological: C6-7 ABSCESS PARAPLEGIA EENT: NONE, cataracts Cardiovascular: AFIB, hypertension, hyperlipidemia, myocardial infarction Respiratory: COPD, OXYGEN DEPEND 2L Gastrointestinal: NONE Hepatic: NONE, hepatitis A Renal: neurogenic bladder Musculoskeletal: PARAPLEGIA R/T ABSCESS Psychiatric: anxiety Endocrine: NONE Blood Disorders: NONE Cancer(s): NONE 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 Home Who Do You Live With? 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 yes Functional Ability ADLs Needs Assist: dressing, eating, toileting, bathing. Ambulation: wheelchair IADLs Independent: shopping, housework, finances, food prep, telephone, transportation , medication admin. Review of Systems Review of Systems Constitutional: Reports: chills. EENTM: Denies: no symptoms. Cardiovascular: Denies: no symptoms. Respiratory: Denies: no symptoms. GI: Reports: bloating. Genitourinary: Reports: dysuria, frequency. Musculoskeletal: Denies: no symptoms. Skin: Denies: no symptoms. Exam & Diagnostic Data Vital Signs and I&O Vital Signs Date Time Temp Pulse Resp B/P B/P Pulse O2 O2 Flow FiO2 Mean Ox Delivery Rate 12/06 1148 98 Nasal 2.0L Cannula 12/06 0817 75 130/82 12/06 0800 Nasal 2.0L Cannula 12/06 0658 95 Nasal 2.0L Cannula 12/06 0657 97.8 63 18 126/77 100 12/06 0037 65 97 12/06 0000 97 Nasal 2.0L Cannula 12/05 2228 98.0 82 18 130/60 97 Nasal 2.0L Cannula 12/05 2213 75 98 12/05 1635 96 Nasal 2.0L Cannula 12/05 1600 Nasal 2.0L Cannula 12/05 1500 98.7 76 18 100/60 98 Nasal 2.0L Cannula Intake & Output 12/06 1600 12/06 0800 12/06 0000 12/05 1600 12/05 0800 12/05 0000 Intake Total 240 740 150 480 Output Total 995 239 7091 300 650 Balance -260 -350 -1260 -150 -170 Intake, IV 30 Intake, Oral 240 740 120 480 Number 1 Bowel Movements Output, Urine 049 845 4298 300 650 Physical Exam General Appearance: well developed/nourished, obese Head: atraumatic Eyes: Bilateral: normal appearance. Ears, Nose, Throat: normal pharynx Respiratory: normal breath sounds Cardiovascular: regular rate/rhythm Gastrointestinal: normal bowel sounds, soft Back: no vertebral tenderness Extremities: normal inspection Skin: intact Reproductive: Normal male genitalia Imaging Results: PATIENT: ESTUARDO PEREZ PRESENT AGE: 67 PATIENT ACCOUNT NO: [id number] : 49 LOCATION: 2NB ORDERING PHYSICIAN: Sary Dorado MD SERVICE DATE: 12/04/17 EXAM TYPE: CAT - CT ABD & PELVIS W/O IV CONTRAS EXAMINATION: CT ABDOMEN AND PELVIS WITHOUT CONTRAST CLINICAL INFORMATION: Presented with clogged Orellana and dysuria. Rule out pyelonephritis or acute process. COMPARISON: CT scan of the chest dated 01/06/2017. CT scan of the abdomen and pelvis dated 04/06/2010. TECHNIQUE: Multidetector volumetric imaging was performed from the superior aspect of the liver through the pubic symphysis. Sagittal and coronal reformatted images were obtained on the technologist workstation. DLP: 1145.29 mGy-cm. FINDINGS: LUNG BASES: There is a small solid noncalcified pleural-based nodule in the right lower lobe (series 2, image 1), measuring 6 mm, unchanged from 12/09/2016 and 2 mm larger compared to 04/06/2010. This is of doubtful clinical significance. Some scattered areas of dependent parenchymal opacity is seen in both lower lobes, most consistent with atelectatic changes. No significant pleural effusion is seen. LIVER, GALLBLADDER, AND BILIARY TREE: The liver is normal in size, shape, and attenuation. No focal hepatic lesion on noncontrast imaging. No biliary ductal dilatation is present. This is likely a faintly calcified gallstone in the gallbladder neck region. The gallbladder is otherwise unremarkable. PANCREAS: Diffusely atrophic with fatty infiltration seen. Some calcific densities are noted within the pancreatic head, possibly vascular versus sequelae of previous chronic calcific pancreatitis similar findings were seen on prior imaging dating back to 2009. No discrete pancreatic mass. No peripancreatic stranding. SPLEEN, ADRENAL GLANDS: A 1 cm accessory splenule is seen in the splenic hilar region. Spleen and adrenal glands unremarkable on noncontrast imaging. KIDNEYS AND URETERS: The kidneys are normal in size, shape, and attenuation. No hydronephrosis or hydroureter seen. There are 2 tiny punctate calcific densities seen in the mid right kidney, most likely vascular in etiology. In the lower pole of the left kidney, a 0.4 cm nonobstructing calcification is seen new from prior exam, likely a nonobstructing stone. In addition, several punctate linearly oriented calcifications is seen in the upper pole, most likely vascular in etiology. No perinephric stranding. In the mid to upper left kidney, a partially exophytic 2.8 x 3.6 cm fluid attenuation mass is seen, consistent with a cyst, new compared to 2010. There is a 1.6 cm lower pole right renal cyst, larger compared to 1.2 cm in 2010. BLADDER: The bladder is 0.4 cm nonobstructing calculus is seen, new compared to the prior exam. Decompressed by Orellana catheter, likely accounting for the diffusely thick-walled appearance. No definite bladder calculi are seen. Evaluation of the bladder is, however, limited. PELVIC VISCERA: Unremarkable. GASTROINTESTINAL TRACT: The small and large bowel are unremarkable. The appendix is nonvisualized. ABDOMINAL WALL: There is extensive soft tissue edema and stranding seen in the posterior medial right buttock and to a lesser extent in the medial left buttock. Both of these areas of edema and stranding extend to the ischial tuberosity bilaterally. Close clinical correlation is requested to exclude pressure type injury with evolving decubitus ulcers or inflammation/cellulitis with extension to the underlying bone. No definite focal lytic lesion is seen involving the ischial tuberosities. There is a small fat-containing umbilical hernia. LYMPH NODES, VASCULAR: Moderate atherosclerotic calcifications of the aorta and branch vessels, including the coronary arteries is seen. No periaortic collections. An IVC filter is in place with tip at the distal left renal vein. OSSEOUS STRUCTURES: Diffuse osteopenia is seen. Mild wedge compression deformity of the L1 vertebral body is seen, unchanged from the 2010 exam. There is mild superior endplate compression of the L2 and L3 vertebral bodies, new/progressive compared to the prior exam. Moderate facet arthropathy is seen in the lower lumbar spine. There is a convex right lumbar curvature, likely positional. There is subtle sclerotic density in the femoral heads bilaterally, not significantly changed since 2010. IMPRESSION: 1. Nonobstructing mid left renal calcification, new from prior study. 2. Right renal calcifications are most likely vascular. 3. Bilaterally, no obstructing stone is seen. 4. Bilateral small renal cysts. 5. Other incidental findings include: a. A 6 mm pleural-based nodule in the right lower lobe, unchanged from 12/09/2016, most consistent with a benign etiology b. Probable faintly calcified gallstone in the gallbladder neck region. Gallbladder otherwise unremarkable. c. Atrophic fatty infiltrated pancreas. d. Question of evolving decubitus ulcers versus cellulitis/soft tissue edema and inflammation in the posterior buttocks, with the inflammatory reaction extending down to the ischial tuberosities bilaterally. e. Osteopenia with several compression deformities in the spine. DICTATED BY: Marissa Villalta MD DATE/TIME DICTATED:12/04/171532 SEARCH MARKETING ANALYST:PAULO DATE/TIME TRANSCRIBED:12/04/171532 Assessment/Plan Assessment/Plan CALLED IN FOR SUPSECTED UTI/UROSEPSIS/PYELONEPHRITIS: CULTURES PENDING, RECOMMEND CT ABD/PELVIS OR AT LEAST RENAL US/KUB TO IMAGE UPPERTRACTS Copies To: Jam VOGEL,Jose Alfredo Consult Acknowledgment - Thank you for your consult request. Attending MD Review Statement Attending Statement Attending MD Statement: examined this patient, discuss w/resident/PA/EDGE GRINDER MACHINE Attending Assessment/Plan: CALLED IN FOR SUPSECTED UTI/UROSEPSIS/PYELONEPHRITIS: CULTURES PENDING, RECOMMEND CT ABD/PELVIS OR AT LEAST RENAL US/KUB TO IMAGE UPPERTRACTS
[2017-12-04 14:00] VITALS: BP 118/58
--- NOTE | 2017-12-04 16:10 | CT SCAN REPORT ---
EXAMINATION: CT ABDOMEN AND PELVIS WITHOUT CONTRAST CLINICAL INFORMATION: Presented with clogged Orellana and dysuria. Rule out pyelonephritis or acute process. COMPARISON: CT scan of the chest dated 01/06/2017. CT scan of the abdomen and pelvis dated 04/06/2010. TECHNIQUE: Multidetector volumetric imaging was performed from the superior aspect of the liver through the pubic symphysis. Sagittal and coronal reformatted images were obtained on the technologist workstation. DLP: 1145.29 mGy-cm. FINDINGS: LUNG BASES: There is a small solid noncalcified pleural-based nodule in the right lower lobe (series 2, image 1), measuring 6 mm, unchanged from 12/09/2016 and 2 mm larger compared to 04/06/2010. This is of doubtful clinical significance. Some scattered areas of dependent parenchymal opacity is seen in both lower lobes, most consistent with atelectatic changes. No significant pleural effusion is seen. LIVER, GALLBLADDER, AND BILIARY TREE: The liver is normal in size, shape, and attenuation. No focal hepatic lesion on noncontrast imaging. No biliary ductal dilatation is present. This is likely a faintly calcified gallstone in the gallbladder neck region. The gallbladder is otherwise unremarkable. PANCREAS: Diffusely atrophic with fatty infiltration seen. Some calcific densities are noted within the pancreatic head, possibly vascular versus sequelae of previous chronic calcific pancreatitis similar findings were seen on prior imaging dating back to 2009. No discrete pancreatic mass. No peripancreatic stranding. SPLEEN, ADRENAL GLANDS: A 1 cm accessory splenule is seen in the splenic hilar region. Spleen and adrenal glands unremarkable on noncontrast imaging. KIDNEYS AND URETERS: The kidneys are normal in size, shape, and attenuation. No hydronephrosis or hydroureter seen. There are 2 tiny punctate calcific densities seen in the mid right kidney, most likely vascular in etiology. In the lower pole of the left kidney, a 0.4 cm nonobstructing calcification is seen new from prior exam, likely a nonobstructing stone. In addition, several punctate linearly oriented calcifications is seen in the upper pole, most likely vascular in etiology. No perinephric stranding. In the mid to upper left kidney, a partially exophytic 2.8 x 3.6 cm fluid attenuation mass is seen, consistent with a cyst, new compared to 2009. There is a 1.6 cm lower pole right renal cyst, larger compared to 1.2 cm in 2010. BLADDER: The bladder is 0.4 cm nonobstructing calculus is seen, new compared to the prior exam. Decompressed by Orellana catheter, likely accounting for the diffusely thick-walled appearance. No definite bladder calculi are seen. Evaluation of the bladder is, however, limited. PELVIC VISCERA: Unremarkable. GASTROINTESTINAL TRACT: The small and large bowel are unremarkable. The appendix is nonvisualized. ABDOMINAL WALL: There is extensive soft tissue edema and stranding seen in the posterior medial right buttock and to a lesser extent in the medial left buttock. Both of these areas of edema and stranding extend to the ischial tuberosity bilaterally. Close clinical correlation is requested to exclude pressure type injury with evolving decubitus ulcers or inflammation/cellulitis with extension to the underlying bone. No definite focal lytic lesion is seen involving the ischial tuberosities. There is a small fat-containing umbilical hernia. LYMPH NODES, VASCULAR: Moderate atherosclerotic calcifications of the aorta and branch vessels, including the coronary arteries is seen. No periaortic collections. An IVC filter is in place with tip at the distal left renal vein. OSSEOUS STRUCTURES: Diffuse osteopenia is seen. Mild wedge compression deformity of the L1 vertebral body is seen, unchanged from the 2010 exam. There is mild superior endplate compression of the L2 and L3 vertebral bodies, new/progressive compared to the prior exam. Moderate facet arthropathy is seen in the lower lumbar spine. There is a convex right lumbar curvature, likely positional. There is subtle sclerotic density in the femoral heads bilaterally, not significantly changed since 2010. IMPRESSION: 1. Nonobstructing mid left renal calcification, new from prior study. 2. Right renal calcifications are most likely vascular. 3. Bilaterally, no obstructing stone is seen. 4. Bilateral small renal cysts. 5. Other incidental findings include: a. A 6 mm pleural-based nodule in the right lower lobe, unchanged from 12/09/2016, most consistent with a benign etiology b. Probable faintly calcified gallstone in the gallbladder neck region. Gallbladder otherwise unremarkable. c. Atrophic fatty infiltrated pancreas. d. Question of evolving decubitus ulcers versus cellulitis/soft tissue edema and inflammation in the posterior buttocks, with the inflammatory reaction extending down to the ischial tuberosities bilaterally. e. Osteopenia with several compression deformities in the spine.
[2017-12-04 20:30] VITALS: BP 106/54; BP 136/90
[2017-12-05 06:39] VITALS: BP 120/73
--- NOTE | 2017-12-05 07:09 | PN- Housestaff ---
See Addendum Subjective Follow-up For: UTI, Sacral Decubiti present prior to admission Subjective: Pt seen and examined at bedside. States he is doing better. States mild amount of pain at meatus. States productive cough which is looser than yesterday. Denies shortness of breath. Denies back pain. States decubiti ulcer was present approximately 2 weeks prior to admission. States wound nurse has been dressing it. No acute events overnight. Denies fevers/chills/night sweats/chest pain/ abdominal pain/lower extremity edema. Review of Systems Constitutional: Reports: see HPI. Objective Last 24 Hrs of Vital Signs/I&O Vital Signs Date Time Temp Pulse Resp B/P B/P Pulse O2 O2 Flow FiO2 Mean Ox Delivery Rate 12/05 0921 Nasal Cannula 12/05 0810 65 120/73 12/05 0800 97 Nasal 2.0L Cannula 12/05 0639 97.5 65 20 120/73 97 BIPAP 12/05 0200 96 BIPAP 12/05 0007 79 97 12/04 2221 89 96 12/04 2040 97 Nasal 2.0L Cannula 12/04 2030 98.0 85 18 106/54 98 Nasal 2.0L Cannula 12/04 1600 Nasal 2.0L Cannula 12/04 1400 98.0 79 17 118/58 94 Nasal 2.0L Cannula Intake & Output 12/05 1600 12/05 0800 12/05 0000 Intake Total 150 480 Output Total 300 650 Balance -150 -170 Intake, IV 30 Intake, Oral 120 480 Output, Urine 300 650 Physical Exam General Appearance: Alert, Oriented X3, Cooperative, No Acute Distress Skin: sacral decubiti stage 3, dressing clean/dry/intact, no drainage noted; skin pink Cardiovascular: Regular Rate, Normal S1, Normal S2 Lungs: Clear to Auscultation, Normal Air Movement Abdomen: Soft, No Tenderness Neurological: Normal Speech Extremities: No Edema Current Medications: Current Medications Sig/Danni Start time Last Medication Dose Route Stop Time Status Admin Acetaminophen 650 MG Q6P PRN 12/02 2345 AC 12/03 PO 1419 Albuterol Sulfate 3 ML EVERY 4 HRS/AWAKE 12/04 1999 AC 12/05 INH 0917 Albuterol Sulfate 2 PUF Q6P PRN 12/02 2345 AC INH Apixaban 5 MG BID 12/03 09 AC 12/05 PO 0807 Baclofen 20 MG BID 12/03 0900 AC 12/05 PO 0809 Bisacodyl 10 MG Q48 12/03 1645 AC 12/03 NM 1845 Budesonide/ 2 PUF BID 12/03 0900 AC 12/05 Formoterol Fumarate INH 0811 Ceftriaxone Sodium 1,000 MG DAILY@0000 12/04 0000 AC 12/04 IV 2345 Docusate Sodium 100 MG DAILY 12/03 0900 AC 12/05 PO 0807 Furosemide 60 MG Q48 12/03 1800 AC 12/05 PO 0807 Gabapentin 600 MG BID 12/03 0900 AC 12/05 PO 0809 Guaifenesin 600 MG BID 12/03 0900 AC 12/05 PO 0807 Hydroxyzine HCl 10 MG BID PRN 12/02 2345 AC PO Magnesium Oxide 400 MG DAILY 12/03 0900 AC 12/05 PO 0809 Metoprolol Succinate 25 MG DAILY 12/03 0900 AC 12/05 PO 0810 Montelukast Sodium 10 MG DAILY 12/03 0900 AC 12/05 PO 0809 Nortriptyline HCl 10 MG DAILY 12/03 0900 AC 12/05 PO 0812 Omeprazole 20 MG DAILY 12/03 0900 AC 12/05 PO 0810 Oxycodone/ 1 TAB Q4H PRN 12/02 2345 AC 12/05 Acetaminophen PO 0535 Potassium Chloride 20 MEQ DAILY 12/03 0900 AC 12/05 PO 0807 Sotalol HCl 80 MG BID 12/03 0900 AC 12/05 PO 0810 Tiotropium [place] 1 PUF DAILY 12/03 0900 AC 12/05 INH 0811 Assessment/Plan Assessment: Mr. Park is a 67-year-old male with past medical history of atrial fibrillation on apixaban, DC status post 2 stents, COPD on 2 L nasal cannula, and paraplegia with an indwelling Orellana followed by Dr. Polk who presents with a clogged Orellana and dysuria of several day duration. Being treated for catheter associated UTI #Catheter associated UTI culture and sensitivity scan yesterday, no evidence of pyelo or reflux -Leukocytosis 15.5 trended down to 10.6 yesterday, leukocytosis is resolved #Bedsores (prior to admission) on 12/04. Will get official wound care consult today. -Will get ID consult, in light of abnormal CT findings with inflammation to ischial tuberosities to help guide treatment if cellulitis/osteomyelitis. -On decubiti precautions DVT prophylaxis IV access Tolerating regular diet Disposition DNR/DNI Problem List: 1. Orellana catheter problem 2. Hematuria Pain Ratin Pain Location: na Pain Goal: Remain pain free Pain Plan: pathway Tomorrow[facility] Labs & Rationales: na
--- NOTE | 2017-12-05 11:14 | PN- Student ---
Subjective Subjective: Hospital day 2: Patient was interviewed and examined at bed side. Patient's chief complaint was dysuria for several days with clogged Orellana. Patient stated he was better compared to yesterday. He had mild dysuria, mild productive cough. His sacral decubitus ulcer was present 2 weeks prior to his admission. Patient denied back pain, fever, chills, sweating, SOB. Objective Objective: Physical exam: - Vital signs: T: 97.5F // P: 65 // RR: 20 // BP: 120/73 // SpO2: 97 - HEENT: PEERLA, EOMI. - Neck: unremarkable. - Cardiac: normal S1, S2, no addiitonal murmur nor gallop. - Lungs: CTA bilaterally. - Skin: stage 3 sacral decubitus ulcer, no abcess, no discharge, pink with no tenderness, negative CVA. - Extremities: no edema. Labs: - His leukocytosis went down from 19.7 to 10.6. - Urine culture growed Gram negative rods. Imaging: - CT scan abd and pelvic showed bilateral renal cysts, non-obstructive calcification to his left kidney, a small nodule 6mm on RLL that did not changed from 12/09/2017 and increase 2mm compared to 04/06/2010. Results Results: Laboratory Tests 12/04/17 0712: CBC w Diff NO MAN DIFF REQ, RBC 3.78 L, MCV 88.1, MCH 28.5, MCHC 32.3 L, RDW 14.9 H, MPV 7.9, Gran % 64.5, Lymphocytes % 20.7, Monocytes % 9.5 H, Eosinophils % 5.1 H, Basophils % 0.2, Absolute Granulocytes 6.8 H, Absolute Lymphocytes 2.2, Absolute Monocytes 1.0 H, Absolute Eosinophils 0.5, Absolute Basophils 0 12/03/17 0610: Anion Gap 8, Estimated GFR > 60, BUN/Creatinine Ratio 34.0 H, Magnesium 1.9, CBC w Diff NO MAN DIFF REQ, RBC 3.95 L, MCV 87.8, MCH 28.6, MCHC 32.6 L, RDW 14.5, MPV 8.7, Gran % 73.8, Lymphocytes % 16.5 L, Monocytes % 6.5, Eosinophils % 2.9, Basophils % 0.3, Absolute Granulocytes 11.4 H, Absolute Lymphocytes 2.6, Absolute Monocytes 1.0 H, Absolute Eosinophils 0.5, Absolute Basophils 0 12/02/172210: Lactic Acid Cancelled 12/02/172105: Urine Color YEL, Urine Clarity CLDY H, Urine pH 6.5, Ur Specific [place] 1.010, Urine Protein 30 H, Urine Ketones 15 H, Urine Nitrite NEG, Urine Bilirubin NEG , Urine Urobilinogen 0.2, Ur Leukocyte Esterase LARGE H, Ur Microscopic SEDIMENT EXAMINED, Urine RBC 5-10 H, Urine WBC > 75 H, Ur Epithelial Cells RARE, Urine Bacteria FEW H, Urine Hemoglobin LARGE H, Urine Glucose NEG 12/02/171924: Anion Gap 9, Estimated GFR > 60, BUN/Creatinine Ratio 35.0 H, Glucose 109 H, Lactic Acid 0.9, Calcium 9.2, Total Bilirubin 0.6, AST 31, ALT 44, Alkaline Phosphatase 94, Troponin I < 0.01, Hoe-G-Foebfyzczfz Pept 286 H, Total Protein 6.9, Albumin 3.3 L, Globulin 3.6, Albumin/Globulin Ratio 0.9 L, D-Dimer High Sensitivty < 200, CBC w Diff MAN DIFF ORDERED, RBC 4.29 L, MCV 87.2, MCH 28.5, MCHC 32.7 L, RDW 14.9 H, MPV 8.8, Gran % 77.8 H, Lymphocytes % 12.4 L, Monocytes % 8.1, Eosinophils % 1.7, Basophils % 0, Absolute Granulocytes 15.3 H , Segmented Neutrophils 76 H, Absolute Lymphocytes 2.4, Lymphocytes 12 L, Monocytes 9, Absolute Monocytes 1.6 H, Eosinophils 3, Absolute Eosinophils 0.3, Absolute Basophils 0, Platelet Estimate VERIFIED BY SMEAR, Normocytic RBCs VERIFIED, Normochromic RBCs VERIFIED, Fld Total RBCs Counted 100 12/02/175: Troponin I Cancelled Microbiology 12/03 174 URINE ROUT: Urine Culture - CAN Cancelled: DUPLICATE 12/03 50 URINE ROUT: Urine Culture - RES 12/02 2105 URINE ROUT: Urine Culture - RES GRAM NEGATIVE RODS Assessment/Plan Assessment: Summary: 67-year-old male with PMH of A-fib, [place] status post 2 stents, COPD on 2L nasal canula and paraplegia with an indwelling Orellana catheter followed by Dr. Polk, presented with dysuria for several days and clogged Orellana. His leukocytosis went down to 10.6 which was resolved. Urine culture growed Gram negative rods. CT scan showed bilateral renal cysts, non-obstructive calcification on left kidney and small nodules 6mm on RLL. Problem list: - Catheter-related UTI. - Sacral decubitus ulcer. - A-fib. - COPD. - Paraplegia. Plan: Catheter-related UTI: - Continue IV Ceftriaxone. - Follow up on urine culture and change to different antibiotcs based on sensitivity. - Follow up recommendations from urology. Sacral decubitus ulcer: - Wound care consult today. - ID consult for possible of cellulitis/osteomyelitis. - Patient is DVT prophylaxis. - Patient is DNR/DNI.
[2017-12-05 15:00] VITALS: BP 100/60
--- NOTE | 2017-12-05 15:15 | Cons- Infect Disease ---
General Information and HPI Consulting Request Date of Consult: 12/05/17 Requested By: Romelia Cobian MD Reason for Consult: Rule out ischial osteomyelitis Source of Information: patient, family, old records History of Present Illness: This is a 67-year-old man, paraplegic for the past 10 years secondary to an MRSA epidural abscess, maintained on Rifampin and Doxycycline suppression, DVT, status post IVC filter, with a history of hypertension, atrial fibrillation, maintained on Eliquis, coronary artery disease, status post stents, COPD, maintained on 2 L of oxygen, obstructive sleep apnea, hospitalized multiple times over the past year for COPD exacerbations, treated with multiple courses of antibiotics, with a neurogenic bladder, for which he was previously straight cathed but with a Orellana catheter for the past year, last hospitalized 2 months prior to admission with hematuria related to trauma, begun on Ciprofloxacin on the day of admission, apparently because of increased sediment, admitted on December 02 with a clogged Orellana and hematuria following removal of the Orellana catheter by his home health aide, with no associated fevers, chills or other symptoms. On admission he was afebrile. Laboratory data revealed a white blood cell count of 20,000, BUN/creatinine 21 and 0.6, with normal liver enzymes. Urinalysis 5-10 RBC/greater than 75 WBCs. Chest x-ray revealed low lung volumes with bibasilar atelectasis and a small left pleural effusion. A Orellana catheter was inserted in the emergency room. He was given Ceftriaxone and Azithromycin and was then continued on Ceftriaxone alone. Of note the Rifampin and Doxycycline were not continued. A CT of the abdomen and pelvis was performed on December 04, revealing a question of inflammation in the posterior buttocks extending to the ischial tuberosities. He has remained afebrile since admission. At present he does not offer any complaints. Allergies/Medications Allergies: Coded Allergies: heparin (Intermediate, SWELLING, RASH 09/05/17) vancomycin (Intermediate, HIVES, SKIN CRACKES, TURNS RED, SWELLS AND PEELS 09/05) warfarin (From COUMADIN) (Intermediate, NOT EFFECTIVE CAN NOT GET LEVELS ABOVE 1 10/23/17) Home Med List: Albuterol Sulfate (Ventolin Hfa) 90 MCG HFA.AER.AD 2 PUF INH AD PRN COPD ( Reported) Albuterol Sulfate 2.5 MG/3 ML (0.083 %) VIAL.NEB 1 Vial INH/MATT Q4P PRN COPD (Reported) Apixaban (Eliquis) 5 MG TABLET 5 MG PO BID atrial fibrillation Ascorbate Calcium (Vitamin C) 500 MG TABLET 1 TAB PO BID SUPPLEMENT (Reported ) Atomoxetine HCl (Strattera) 40 MG CAPSULE 1 CAP PO QAM MENTAL HEALTH ( Reported) Baclofen 20 MG TABLET 1 TAB PO BID MUSCLE RELAXER (Reported) Bisacodyl (Dulcolax) 10 MG SUPP.RECT 1 SUP RC Q48 GI (Reported) Budesonide/Formoterol Fumarate (Symbicort 160-4.5 Mcg Inhaler) 160 MCG-4.5 MCG/ ACTUATION HFA.AER.AD 2 PUF INH BID copd (Reported) Docusate Sodium (Stool Softener) 100 MG CAPSULE 1 CAP PO DAILY STOOL SOFTENER (Reported) Evolocumab (Repatha Sureclick) 140 MG/ML PEN.INJCTR 1 ML SC Q 2 WEEKS CHOLESTEROL (Reported) Furosemide 20 MG TABLET 3 TAB PO Q48 DIURETIC (Reported) Gabapentin 300 MG CAPSULE 2 CAP PO BID NERVE PAIN (Reported) Guaifenesin (Mucinex) 600 MG TAB.ER.12H 1 TAB PO BID CONGESTION (Reported) Hydroxyzine HCl (hydrOXYzine HCl) 10 MG TABLET 1 TAB PO BID PRN ANXIETY ( Reported) Lactobacillus Acidophilus (Acidophilus) 1 EACH CAPSULE 1 CAP PO BID PROBIOTIC (Reported) Magnesium Oxide (Magnesium) 400 MG CAPSULE 1 CAP PO 0600 SUPPLEMENT (Reported ) Metoprolol Succ XL (Toprol XL) 25 MG TAB 1 TAB PO DAILY HEART (Reported) Montelukast Sodium (Singulair) 10 MG TABLET 1 TAB PO DAILY ALLERGIES ( Reported) Multivitamin (Daily Value) 1 EACH TABLET 1 TAB PO DAILY VITAMIN SUPPORT ( Reported) Nortriptyline HCl 10 MG CAPSULE 1 CAP PO DAILY mental health (Reported) Omeprazole 20 MG CAPSULE.DR 1 CAP PO DAILY ACID REFLUX (Reported) Oxycodone HCl/Acetaminophen (Oxycodone-Acetaminophen 5-325) 5 MG-325 MG TABLET 1 TAB PO Q4H PRN PAIN (Reported) Potassium Chloride 20 MEQ TAB.ER.PRT 1 TAB PO DAILY SUPPLEMENT (Reported) Rifampin (Rifadin) 300 MG CAPSULE 300 MG PO BID MRSA (Reported) Sotalol (Betapace) 80 MG TABLET 80 MG PO BID AARYTHMIAS Tiotropium [place] (Spiriva) 18 MCG CAP.W.DEV 1 CAP INH DAILY BREATHING PROBLEMS (Reported) Trazodone HCl 50 MG TABLET 1 TAB PO QHS agitation (Reported) Past History Travel History Traveled to [place] past 21 day No Medical History Blood Transfusion Hx: Yes Neurological: T6-7 EPIDURAL ABSCESS PARAPLEGIA EENT: cataracts Cardiovascular: AFIB, CAD (S/P STENT), hypertension, hyperlipidemia, myocardial infarction Respiratory: COPD, OXYGEN DEPEND 2L Gastrointestinal: NONE Hepatic: hepatitis A Renal: neurogenic bladder Psychiatric: anxiety Endocrine: NONE Blood Disorders: DVT Cancer(s): NONE CRTTS/Reproductive: NONE History of MRSA: Yes History of VRE: Yes History of CDIFF: No Isolation History: Contact Surgical History Surgical History: appendectomy Family History Relations & Conditions If Any: Relation not specified for: *No pertinent family history Psychosocial History Where Do You Live? Home Who Do You Live With? partner Services at Home: Home Health Aide, [employer] MORNING & EVENING Primary Language: Surinamese Smoking Status: Former Smoker ETOH Use: denies use Living Will? yes Functional Ability ADLs Needs Assist: dressing, eating, toileting, bathing. Ambulation: wheelchair IADLs Independent: shopping, housework, finances, food prep, telephone, transportation , medication admin. Review of Systems Review of Systems GI: Reports: constipation. All Other Systems: Reviewed and Negative Exam & Diagnostic Data Last 24 Hrs of Vital Signs/I&O Vital Signs Date Time Temp Pulse Resp B/P B/P Pulse O2 O2 Flow FiO2 Mean Ox Delivery Rate 12/05 0921 Nasal Cannula 12/05 0810 65 120/73 12/05 0800 97 Nasal 2.0L Cannula 12/05 0639 97.5 65 20 120/73 97 BIPAP 12/05 0200 96 BIPAP 12/05 0007 79 97 12/04 2221 89 96 12/04 2040 97 Nasal 2.0L Cannula 12/04 2030 98.0 85 18 106/54 98 Nasal 2.0L Cannula 12/04 1600 Nasal 2.0L Cannula Intake & Output 12/05 1600 12/05 0800 12/05 0000 Intake Total 740 150 480 Output Total 1999 300 650 Balance -1260 -150 -170 Intake, IV 30 Intake, Oral 740 120 480 Number 1 Bowel Movements Output, Urine 2000 300 650 Physical Exam Other Physical Findings: He is awake and alert in no acute distress. He is afebrile. Skin reveals no rash. HEENT exam is negative. Neck is supple with no adenopathy. Lungs are clear. Heart regular rhythm with no murmur. Abdomen is obese, soft, nontender with positive bowel sounds. Back no CVA tenderness; stage II decubitus over the coccyx and a stage II decubitus over the right buttock, with several excoriations. Extremities no cyanosis, clubbing or edema. Neuro paraplegia. Orellana catheter is in place, with clear urine. Last 24 Hours of Lab Results: Laboratory Tests 12/04 0712 Hematology CBC w Diff NO MAN DIFF REQ WBC (4.8 - 10.8 /CUMM) 10.6 RBC (4.70 - 6.10 /CUMM) 3.78 L Hgb (14.0 - 18.0 G/DL) 10.8 L Hct (42 - 52 %) 33.3 L MCV (80.0 - 94.0 FL) 88.1 MCH (27.0 - 31.0 PG) 28.5 MCHC (33.0 - 37.0 G/DL) 32.3 L RDW (11.5 - 14.5 %) 14.9 H Plt Count (130 - 400 /CUMM) 270 MPV (7.4 - 10.4 FL) 7.9 Gran % (42.2 - 75.2 %) 64.5 Lymphocytes % (20.5 - 51.1 %) 20.7 Monocytes % (1.7 - 9.3 %) 9.5 H Eosinophils % (0 - 5 %) 5.1 H Basophils % (0.0 - 2.0 %) 0.2 Absolute Granulocytes (1.4 - 6.5 /CUMM) 6.8 H Absolute Lymphocytes (1.2 - 3.4 /CUMM) 2.2 Absolute Monocytes (0.10 - 0.60 /CUMM) 1.0 H Absolute Eosinophils (0.0 - 0.7 /CUMM) 0.5 Absolute Basophils (0.0 - 0.2 /CUMM) 0 Last 24 Hours of [place] Results: Urine culture December 02 approximately 10,000 colonies of Proteus resistant to Ciprofloxacin and Nitrofurantoin Urine culture December 03 negative Diagnostic Data Recent Imaging Findings: Chest x-ray December 02 reveals chronic changes of COPD, low lung volumes with bibasilar atelectasis and a small left pleural effusion CT of the abdomen and pelvis without contrast December 04 reveals extensive soft tissue edema and stranding in the posterior medial right buttock and, to a lesser extent, in the medial left buttock, extending to the ischial tuberosity bilaterally, with no definite focal lytic lesion seen involving the ischial tuberosities; nonobstructing mid left renal calcification Assessment/Plan Assessment/Plan Impression: This is a 67-year-old man, paraplegic for the past 10 years secondary to an MRSA epidural abscess, maintained on Rifampin and Doxycycline suppression, hospitalized multiple times over the past year for COPD exacerbations, with a neurogenic bladder, for which he has had a Orellana catheter for the past year, begun on Ciprofloxacin on the day of admission, apparently because of increased sediment, admitted on December 02 with a clogged Orellana and hematuria following removal of the Orellana catheter, found to be afebrile with a leukocytosis and pyuria, with a CT of the abdomen pelvis revealing a question of inflammation in the posterior buttocks extending to both ischial tuberosities. The significance of the CT findings is unclear. He does have stage II decubiti over the coccyx and right buttock, with several scattered excoriations, but these are apparently new and do not appear to be deep and, therefore, are unlikely to extend to the bone. The role of suppressive antibiotics, which have not been reordered since admission, is unclear and further imaging, in particular an MRI of the thoracic spine, has been recommended in the past to evaluate for any residual collection, for which continued antibiotic suppression might be reasonable. His positive urine culture, with only 10,000 colonies, is of unclear significance with the chronic indwelling Orellana catheter and, though he did have a leukocytosis on admission, this may have been in part secondary to hemoconcentration and, therefore, feel that the Ceftriaxone can be discontinued. Have discussed alternatives to the Orellana catheter, including suprapubic cystostomy, with the patient, but he is not agreeable to this at this time. Suggestion: 1. MRI of the thoracic, lumbar and sacral spine with contrast 2. Would consider alternatives to the Orellana catheter, including suprapubic cystostomy or resuming a straight catheterization protocol, if patient agreeable 3. Discontinue Ceftriaxone and follow off antibiotics Consult Acknowledgment - Thank you for your consult request.
[2017-12-05 22:28] VITALS: BP 130/60
[2017-12-06 06:57] VITALS: BP 126/77
--- NOTE | 2017-12-06 08:23 | PN- Housestaff ---
Pepe Gregory 12/06/17 0823: Subjective Follow-up For: Catheter associated UTI; Sacral Decubiti Subjective: Patient seen and examined at bedside. Patient denies any complaints. Patient states his cough is getting much better. Patient also states that he has less pain at the meatus. Patient overall thinks that he is doing much better. Patient is amenable to MRI, states that he has a shellfish allergy, is unsure if the gadolinium dye will react with that. Denies fever/chills/night sweats/chest pain/abdominal pain/urinary symptoms/lower extremity edema. States that there is some drainage from the sacral ulcer. Review of Systems Constitutional: Reports: see HPI. Objective Last 24 Hrs of Vital Signs/I&O Vital Signs Date Time Temp Pulse Resp B/P B/P Pulse O2 O2 Flow FiO2 Mean Ox Delivery Rate 12/06 1148 98 Nasal 2.0L Cannula 12/06 0817 75 130/82 12/06 0800 Nasal 2.0L Cannula 12/06 0658 95 Nasal 2.0L Cannula 12/06 0657 97.8 63 18 126/77 100 12/06 0037 65 97 12/06 0000 97 Nasal 2.0L Cannula 12/05 2228 98.0 82 18 130/60 97 Nasal 2.0L Cannula 12/05 2213 75 98 12/05 1635 96 Nasal 2.0L Cannula 12/05 1600 Nasal 2.0L Cannula 12/05 1500 98.7 76 18 100/60 98 Nasal 2.0L Cannula Intake & Output 12/06 1600 12/06 0800 12/06 0000 Intake Total 240 Output Total 500 350 Balance -260 -350 Intake, Oral 240 Output, Urine 500 350 Physical Exam General Appearance: Alert, Oriented X3, Cooperative, No Acute Distress Skin: sacral decubiti stage 3, dressing c/d/i, no drainage noted, wound pink Skin Temp/Moisture Exam: Warm/Dry Cardiovascular: Regular Rate, Normal S1, Normal S2 Lungs: Clear to Auscultation, Normal Air Movement Abdomen: Soft, No Tenderness Neurological: Normal Speech Extremities: No Edema Reproductive (MALE) li in place Current Medications: Current Medications Sig/Danni Start time Last Medication Dose Route Stop Time Status Admin Acetaminophen 650 MG .STK-MED ONE 12/05 2146 DC PO 12/06 2147 Acetaminophen 650 MG Q6P PRN 12/025 AC 12/05 PO 2149 Albuterol Sulfate 3 ML EVERY 4 HRS/AWAKE 12/03 2000 AC 12/06 INH 1145 Albuterol Sulfate 2 PUF Q6P PRN 12/02 2345 AC INH Apixaban 5 MG BID 12/03 0900 AC 12/06 PO 0817 Baclofen 20 MG BID 12/03 0900 AC 12/06 PO 0817 Bisacodyl 10 MG Q48 12/03 1645 AC 12/05 SC 1000 Budesonide/ 2 PUF BID 12/03 0900 AC 12/06 Formoterol Fumarate INH 0815 Ceftriaxone Sodium 1,000 MG DAILY@0000 12/04 0000 DC 12/05 IV 2332 Docusate Sodium 100 MG DAILY 12/03 0900 AC 12/06 PO 0817 Furosemide 60 MG Q48 12/03 1800 AC 12/05 PO 0807 Gabapentin 600 MG BID 12/03 0900 AC 12/06 PO 0817 Guaifenesin 600 MG BID 12/03 0900 AC 12/06 PO 0817 Hydroxyzine HCl 10 MG BID PRN 12/02 2345 AC PO Magnesium Oxide 400 MG DAILY 12/03 0900 AC 12/06 PO 0817 Metoprolol Succinate 25 MG DAILY 12/03 0900 AC 12/06 PO 0817 Montelukast Sodium 10 MG DAILY 12/03 0900 AC 12/06 PO 0817 Nortriptyline HCl 10 MG DAILY 12/03 0900 AC 12/06 PO 0816 Omeprazole 20 MG DAILY 12/03 0900 AC 12/06 PO 0816 Oxycodone/ 1 TAB Q4H PRN 12/02 2345 AC 12/06 Acetaminophen PO 1156 Patient Medication 1 ED ONE ONE 12/05 1944 [facility] 12/05 1945 Potassium Chloride 20 MEQ DAILY 12/03 0900 AC 12/06 PO 0817 Sotalol HCl 80 MG BID 12/03 0900 AC 12/06 PO 0817 Tiotropium [place] 1 PUF DAILY 12/03 0900 AC 12/06 INH 0816 Assessment/Plan Assessment: Mr. Park is a 67-year-old male with past medical history of atrial fibrillation on apixaban, [place] status post 2 stents, COPD on 2 L nasal cannula, and paraplegia with an indwelling Li followed by Dr. Polk who presents with a clogged Li and dysuria of several day duration. Being treated for catheter associated UTI #Catheter associated UTI - resolved outpatient. have resolved, patient was being adequately treated for it. negative for pyelonephritis or reflux. -Leukocytosis 15.5 trended down to 10.6 2 days ago, will check 1 more CBC tomorrow #Bedsores (prior to admission)sacral ulcer, unstageable on coccyx but presumed stage III, and stage II pressure injury to right buttock on 12/04. -ID consult appreciated. 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 this. In addition due to patient's shellfish allergy we will premedicate to avoid allergic reaction. Pharmacy states that prednisone 50 mg p.o. should be given 13 hours prior, 7 hours prior, and 1 hour prior to the scan. Diphenhydramine 50 mg should also be given either IV or p.o. 1 hour prior to the scan. In addition, patient can receive 2 mg of Ativan to help with nerves for the MRI. Will follow up in ascertaining what time patient will go for MRI tomorrow. -On decubiti precautions DVT prophylaxis IV access Tolerating regular diet Disposition DNR/DNI Problem List: 1. Clot hematuria 2. UTI (urinary tract infection) Pain Ratin Pain Location: na Pain Goal: Pain 4 or less Pain Plan: pain pathway Tomorrow's Labs & Rationales: CBC in the morning monitor leukocytosis Romelia Cobian 12/06/17 1145: Attending MD Review Statement Attending Statement Attending MD Statement: examined this patient, discuss w/resident/PA/LAUNDRY HOUSEKEEPING AIDE, agreed w/resident/PA/LAUNDRY HOUSEKEEPING AIDE, discussed with family, reviewed EMR data (avail), discussed with nursing, discussed with case mgmt, reviewed images, amended to note Attending Assessment/Plan: Patient admitted here for possible UTI and leukocytosis improved on ceftriaxone. Urology consulted and recommend CT abd/pelvis to evaluate for pyelonephritis which is negative for acute pathology. However CT demonstartes abnormal findings of sacral area with swelling representing soft tissue edema and inflammation extending upon ischical tuberosities. Patient seen/examined bedside. No new complaints. Vital stable, WBC improved on ceftriaxone. For MRI he needs to be sedated as he is claustrophobic and for contrast ask pharmacy to premeditate with steroids/benadryl as per protocol. Sacral ulcer stage 3/non stageable: Patient reports some drainage/soiling of clothes at home. Present on admisison and worsening in past 2 weeks. ID consulted and recommend to obtain MRI spine/back for possible cellultiis rule out sacral osteomyelitis and/or residual collection from previous abscess. Wound consult sacral/decubiti precautions. gi/dvt prophyalxis
--- NOTE | 2017-12-06 13:10 | PN- Infect Dx ---
Subjective Subjective: Afebrile without complaints. Objective Last 24 Hrs of Vital Signs/I&O Vital Signs Date Time Temp Pulse Resp B/P B/P Pulse O2 O2 Flow FiO2 Mean Ox Delivery Rate 12/06 1148 98 Nasal 2.0L Cannula 12/06 0817 75 130/82 12/06 0800 Nasal 2.0L Cannula 12/06 0658 95 Nasal 2.0L Cannula 12/06 0657 97.8 63 18 126/77 100 12/06 0037 65 97 12/06 0000 97 Nasal 2.0L Cannula 12/05 2228 98.0 82 18 130/60 97 Nasal 2.0L Cannula 12/05 2213 75 98 12/05 1635 96 Nasal 2.0L Cannula 12/05 1600 Nasal 2.0L Cannula 12/05 1500 98.7 76 18 100/60 98 Nasal 2.0L Cannula Intake & Output 12/06 1600 12/06 0800 12/06 0000 Intake Total 240 Output Total 500 350 Balance -260 -350 Intake, Oral 240 Output, Urine 500 350 Physical Exam Other Physical Findings: He appears comfortable in no acute distress Lungs decreased breath sounds bilaterally with no wheezes or rhonchi Heart regular rhythm with no murmur Extremities no cyanosis, clubbing or edema Orellana catheter remains in place Results Last 24 Hours of Lab Results: No labs from today Last 24 Hours of Bryan Results: No new cultures Assessment/Plan ID Impression: Stable, with temperatures and white blood cell count remaining normal, now off antibiotics, with his urine culture in the setting of a Orellana catheter positive for approximately 10,000 colonies of Proteus, likely representing colonization or contamination. As previously noted he was on a straight cath schedule in the past and is willing to try this again in place of the Orellana catheter. With regard to his CT findings of extensive soft tissue edema and stranding in the buttocks, extending to the ischial tuberosities, is unclear and he is scheduled for an MRI in the a.m. to evaluate the ischial tuberosities as well as to rule out any residual epidural collection in the T6-T7 area, for which he has been on antibiotic suppression (with Doxycycline and Rifampin) for approximately 10 years. Of note these were not continued on admission and, therefore, he remains off of them at this time. Suggestion: 1. Await MRI of the thoracic, lumbar and sacral spine 2. Remove Orellana catheter and initiate straight cath protocol 3. Continue to follow off antibiotics
[2017-12-06 14:55] VITALS: BP 110/50
[2017-12-06 22:00] VITALS: BP 110/58
[2017-12-07 07:00] VITALS: BP 138/71
[2017-12-07 07:53] LABS: ABSOLUTE BASOPHIL COUNT 0 /CUMM (0.0-0.2); ABSOLUTE EOSINOPHIL COUNT 0 /CUMM (0.0-0.7); ABSOLUTE GRANULOCYTE CT 8.1 /CUMM (1.4-6.5); ABSOLUTE LYMPH COUNT 1.5 /CUMM (1.2-3.4); ABSOLUTE MONOCYTE COUNT 0.1 /CUMM (0.10-0.60); BASOPHIL % 0.2 % (0.0-2.0); EOSINOPHIL % 0.2 % (0-5); HEMATOCRIT 35.8 % (42-52); MEAN CORPUSCULAR HGB 28.5 PG (27.0-31.0); MEAN CORPUSCULAR HGB CONC 32.2 G/DL (33.0-37.0); MEAN CORPUSCULAR VOLUME 88.3 FL (80.0-94.0); MEAN PLATELET VOLUME 7.9 FL (7.4-10.4); PLATELET COUNT 334 /CUMM (130-400); RBC DISTRIBUTION WIDTH 14.5 % (11.5-14.5); RED BLOOD CELL CT 4.06 /CUMM (4.70-6.10); WHITE BLOOD CELL COUNT 9.7 /CUMM (4.8-10.8)
--- NOTE | 2017-12-07 08:43 | PN- Housestaff ---
See Addendum Subjective Follow-up For: Catheter associated UTI, r/o Osteomyelitis Subjective: Patient seen and examined at bedside. Patient states he feels "good, I've been on steroids all night." Patient denies any current urinary symptoms. Patient denies any weeping from the sacral ulcer. Patient agreeable to go to MRI today. Patient has been premedicated, given his shellfish allergy which is a rash and hives on the extremities but not centrally, and no throat closure. Patient will receive 2 mg of Ativan to control anxiety, with 2 mg as needed in case it does not work. Patient denies fever/chills/night sweats/chest pain/abdominal pain/ lower extremity edema. Review of Systems Constitutional: Reports: see HPI. Objective Last 24 Hrs of Vital Signs/I&O Vital Signs Date Time Temp Pulse Resp B/P B/P Pulse O2 O2 Flow FiO2 Mean Ox Delivery Rate 12/07 0803 96 Nasal 2.0L Cannula 12/07 0800 Nasal 2.0L Cannula 12/07 0700 98.0 66 20 138/71 94 Nasal 2.0L Cannula 12/07 0531 67 96 12/07 0027 65 99 12/07 0000 BIPAP 12/06 2210 69 98 12/06 2200 98.0 76 18 110/58 98 Nasal 2.0L Cannula 12/06 1600 Nasal 2.0L Cannula 12/06 1455 97.8 74 20 110/50 95 Nasal Cannula 12/06 1148 98 Nasal 2.0L Cannula Intake & Output 12/07 1600 12/07 0800 12/07 0000 Intake Total 730 Output Total 1150 750 Balance -420 -750 Intake, IV 10 Intake, Oral 720 Number 0 Bowel Movements Output, Urine 1150 750 Physical Exam General Appearance: Alert, Oriented X3, Cooperative, No Acute Distress Skin: sacral decubiti, dressing c/d/i, no drainage noted, wound pink Skin Temp/Moisture Exam: Warm/Dry Cardiovascular: Regular Rate, Normal S1, Normal S2 Lungs: Clear to Auscultation, Normal Air Movement Abdomen: Soft, No Tenderness Neurological: Normal Speech Extremities: No Edema Current Medications: Current Medications Sig/Danni Start time Last Medication Dose Route Stop Time Status Admin Acetaminophen 650 MG Q6P PRN 12/02 2345 AC 12/05 PO 2149 Albuterol Sulfate 3 ML EVERY 4 HRS/AWAKE 12/03 2000 AC 12/07 INH 0757 Albuterol Sulfate 2 PUF Q6P PRN 12/02 2345 AC INH Apixaban 5 MG BID 12/03 0900 AC 12/07 PO 0911 Baclofen 20 MG BID 12/03 0900 AC 12/07 PO 0910 Bisacodyl 10 MG Q48 12/03 1645 AC 12/05 WA 1000 Budesonide/ 2 PUF BID 12/03 0900 AC 12/07 Formoterol Fumarate INH 0908 Diphenhydramine HCl 50 MG ONCE ONE 12/07 1200 DC PO 12/07 1201 Diphenhydramine HCl 50 MG ONCE ONE 12/07 0915 DC 12/07 PO 12/07 0916 0908 Docusate Sodium 100 MG DAILY 12/03 0900 AC 12/07 PO 0911 Furosemide 60 MG Q48 12/03 1800 AC 12/07 PO 0910 Gabapentin 600 MG BID 12/03 0900 AC 12/07 PO 0910 Guaifenesin 600 MG BID 12/03 0900 AC 12/07 PO 0910 Hydroxyzine HCl 10 MG BID PRN 12/02 2345 AC PO Lorazepam 2 MG ONE PRN 12/07 0945 AC IV Lorazepam 2 MG ONE ONE 12/07 0930 DC 12/07 IV 12/07 0931 0942 Magnesium Oxide 400 MG DAILY 12/03 0900 AC 12/07 PO 0910 Metoprolol Succinate 25 MG DAILY 12/03 0900 AC 12/07 PO 0911 Montelukast Sodium 10 MG DAILY 12/03 0900 AC 12/07 PO 0911 Nortriptyline HCl 10 MG DAILY 12/03 0900 AC 12/07 PO 0908 Omeprazole 20 MG DAILY 12/03 0900 AC 12/07 PO 0910 Oxycodone/ 1 TAB Q4H PRN 12/02 2345 AC 12/07 Acetaminophen PO 0538 Potassium Chloride 20 MEQ DAILY 12/03 0900 AC 12/07 PO 0911 Prednisone 50 MG ONCE ONE 12/07 1200 DC PO 12/07 1201 Prednisone 50 MG ONCE ONE 12/07 0915 DC 12/07 PO 12/07 0916 0908 Prednisone 50 MG ONCE ONE 12/07 0600 DC 12/07 PO 12/07 0601 0538 Prednisone 50 MG ONCE ONE 12/07 0000 DC 12/07 PO 12/07 0001 0016 Sotalol HCl 80 MG BID 12/03 899 AC 12/07 PO 0911 Tiotropium Sanborn 1 PUF DAILY 12/03 899 AC 12/07 INH 0908 Last 24 Hrs of Lab/Bryan Results Last 24 Hrs of Labs/Mics: Laboratory Tests 12/07/17 0700: CBC w Diff NO MAN DIFF REQ, RBC 4.06 L, MCV 88.3, MCH 28.5, MCHC 32.2 L, RDW 14.5, MPV 7.9, Gran % 83.0 H, Lymphocytes % 15.3 L, Monocytes % 1.3 L, Eosinophils % 0.2, Basophils % 0.2, Absolute Granulocytes 8.1 H, Absolute Lymphocytes 1.5, Absolute Monocytes 0.1, Absolute Eosinophils 0, Absolute Basophils 0 Assessment/Plan Assessment: Mr. Park is a 67-year-old male with past medical history of atrial fibrillation on apixaban, ME status post 2 stents, COPD on 2 L nasal cannula, and paraplegia with an indwelling Orellana followed by Dr. Polk who presents with a clogged Orellana and dysuria of several day duration. Being treated for catheter associated UTI #Catheter associated UTI - resolved outpatient. have resolved, patient was being adequately treated for it. negative for pyelonephritis or reflux. -Leukocytosis 15.5 trended down to 10.6 2 days ago, will check 1 more CBC tomorrow MRI, and initiate straight cath protocol. #Bedsores (prior to admission)sacral ulcer, unstageable on coccyx and stage II pressure injury to right buttockresolving on 12/04. -ID consult appreciated. 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 yesterday, patient was started on the protocol at midnight. Upon talking with MRI today, patient to go at 10 AM. Spoke with pharmacy, who said that the premedication can be adjusted to 1 hour prior. Patient did receive 3 doses of steroids, 1 dose of Benadryl, and the Ativan for anxiety. We will follow-up on results. If no osteomyelitis, or residual abscess, patient can be safely discharged -On decubiti precautions #Chronic hypoxic respiratory failure secondary to COPD (on 2 L home oxygen) stable at baseline DVT prophylaxis IV access Tolerating regular diet Disposition DNR/DNI Problem List: 1. Clot hematuria Pain Ratin Pain Location: na Pain Goal: Pain 4 or less Pain Plan: per pathway Tomorrow's Labs & Rationales: na
--- NOTE | 2017-12-07 12:15 | MRI REPORT ---
EXAMINATION: MRI OF THE THORACIC AND LUMBAR SPINE WITHOUT CONTRAST CLINICAL INFORMATION: Paraplegic with incidental CT findings. Demonstrating a question of evolving decubitus ulcers versus cellulitis/soft tissue edema and inflammation in the posterior buttocks, with the inflammatory reaction extending down to the ischial tuberosities bilaterally. COMPARISON: None TECHNIQUE: Multiplanar multisequence MR imaging of the thoracic and lumbar spine is obtained without contrast. The patient could not tolerate the postcontrast portion of this study and many of the obtained thoracolumbar series are degraded by motion artifact. FINDINGS: THORACIC SPINE MRI: Stable midthoracic kyphosis centered at T6. Unchanged vertebral plana at T6. There is increased signal on T1 and T2-weighted imaging within between the T5 and T7 vertebral bodies corresponding to minimal residual T6 vertebral body in this location/vertebral plana. Stable chronic vertebral body height loss at the T5 and T7 levels. There is also stable mild chronic superior endplate height loss at the T11 and T12 levels. The remaining thoracic vertebral body heights are maintained. No marrow edema to suggest acute fractures. There is no evidence of osteomyelitis discitis nor septic facet arthritis. Thoracic cord morphology is normal. Nondiagnostic assessment for cord signal changes given the degree of artifact in the axial series. No thoracic cord compression is appreciated on the sagittal series. No epidural collections. T6 vertebral plana unchanged. There is stable appearing severe right and moderate left foraminal stenosis at T6-T7 secondary to disc osteophyte and facet arthropathy. Disc osteophyte and facet arthropathy result in similar moderate bilateral foraminal stenosis at T5-T6. LUMBAR SPINE MRI: Sacral decubitus ulcer identified on the previous CT is redemonstrated with adjacent soft tissue extending to the dorsal margin of the sacrococcygeal junction. The marrow within the sacrum and coccyx is preserved without evidence of osteomyelitis affecting these areas. There are 5 nonrib-bearing lumbar-type vertebral bodies. Chronic upper endplate compression deformities at the L1, L2, and L3 levels. No bone marrow edema to suggest acute fracture nor osteomyelitis discitis. No evidence of septic facet arthritis. The conus terminates at the L1 level. There is a Orellana catheter within the bladder. Gluteus muscular atrophy bilaterally. The bladder is thick-walled with a Orellana catheter in place which can be correlated with urinalysis. L1-L2: There is a small annular disc bulge without central canal stenosis and without foraminal stenosis. L2-L3: Small annular disc bulge and moderate bilateral facet arthropathy and ligamentum flavum thickening. There is no central canal stenosis and there is no foraminal stenosis. L3-L4: There is a diffuse annular disc bulge and there is moderate bilateral facet arthropathy and ligamentum flavum thickening. No significant central canal stenosis. Mild foraminal narrowing bilaterally. L4-L5: Diffuse annular disc bulge and moderate to severe bilateral facet arthropathy. No central canal stenosis. While foraminal narrowing bilaterally. L5-S1: Diffuse disc osteophyte complex and severe bilateral facet arthropathy. No central canal stenosis. Disc osteophyte and facet arthropathy result in severe right-sided foraminal stenosis with mass effect on the exiting right L5 nerve root. There is mild to moderate left foraminal stenosis. IMPRESSION: - This is a very limited study. The patient could not tolerate postcontrast imaging and many of the sequences are motion degraded, particularly the axial T2 series of the thoracic spine which is essentially nondiagnostic. - Redemonstrated sacral decubitus ulcer with adjacent soft tissue extending to the posterior margin of the sacrococcygeal junction. Normal fatty marrow within the sacrum and coccyx is maintained without MRI evidence of osteomyelitis. The level of questioned inflammatory changes beneath ischial tuberosities on both sides is not included on this exam. The imaged ischial tuberosities exhibit preserved marrow signal. - Within the thoracic spine there is a stable appearing chronic midthoracic kyphosis in the setting of chronic vertebra plana at T6. Multiple chronic compression deformities throughout the thoracic spine are stable as are multilevel degenerative changes that result in severe right and moderate left foraminal stenosis at T6-T7 and moderate bilateral foraminal stenosis at T5-T6. There is no severe central canal stenosis within the thoracic spine. No evidence of infection within the thoracic spine. - Multilevel lumbar spondylosis, greatest at L5-S1 were multifactorial degenerative changes result in moderate to severe right-sided foraminal stenosis with mass effect on the exiting right L5 nerve root. There is no evidence of infection within the lumbar spine. Chronic compression deformities within the lumbar spine as described. No acute fractures. - The bladder is thick-walled with a Orellana catheter in place which can be correlated with urinalysis.
--- NOTE | 2017-12-07 14:30 | PN- Infect Dx ---
Subjective Subjective: Afebrile without complaints Objective Last 24 Hrs of Vital Signs/I&O Vital Signs Date Time Temp Pulse Resp B/P B/P Pulse O2 O2 Flow FiO2 Mean Ox Delivery Rate 12/07 1244 96 Nasal 2.0L Cannula 12/07 0803 96 Nasal 2.0L Cannula 12/07 0800 Nasal 2.0L Cannula 12/07 07 98.0 66 20 138/71 94 Nasal 2.0L Cannula 12/07 0531 67 96 12/07 0027 65 99 12/07 0000 BIPAP 12/06 2210 69 98 12/06 2200 98.0 76 18 110/58 98 Nasal 2.0L Cannula 12/06 1600 Nasal 2.0L Cannula 12/06 1455 97.8 74 20 110/50 95 Nasal Cannula Intake & Output 12/07 1600 12/07 0800 12/07 0000 Intake Total 750 730 Output Total 0 1150 750 Balance 750 -420 -750 Intake, IV 50 10 Intake, Oral 700 720 Number 0 0 Bowel Movements Output, Urine 0 1150 750 Physical Exam Other Physical Findings: He is lethargic, status post MRI earlier today, but in no acute distress Exam is without change Orellana catheter remains in place Results Last 24 Hours of Lab Results: Laboratory Tests 12/07 699 Hematology CBC w Diff NO MAN DIFF REQ WBC (4.8 - 10.8 /CUMM) 9.7 RBC (4.70 - 6.10 /CUMM) 4.06 L Hgb (14.0 - 18.0 G/DL) 11.5 L Hct (42 - 52 %) 35.8 L MCV (80.0 - 94.0 FL) 88.3 MCH (27.0 - 31.0 PG) 28.5 MCHC (33.0 - 37.0 G/DL) 32.2 L RDW (11.5 - 14.5 %) 14.5 Plt Count (130 - 400 /CUMM) 334 MPV (7.4 - 10.4 FL) 7.9 Gran % (42.2 - 75.2 %) 83.0 H Lymphocytes % (20.5 - 51.1 %) 15.3 L Monocytes % (1.7 - 9.3 %) 1.3 L Eosinophils % (0 - 5 %) 0.2 Basophils % (0.0 - 2.0 %) 0.2 Absolute Granulocytes (1.4 - 6.5 /CUMM) 8.1 H Absolute Lymphocytes (1.2 - 3.4 /CUMM) 1.5 Absolute Monocytes (0.10 - 0.60 /CUMM) 0.1 Absolute Eosinophils (0.0 - 0.7 /CUMM) 0 Absolute Basophils (0.0 - 0.2 /CUMM) 0 Last 24 Hours of Bryan Results: No recent cultures Recent Imaging Studies: MRI of the spine reveals a sacral decubitus ulcer with adjacent soft tissue extending to the posterior margin of the sacrococcygeal junction, with no evidence of osteomyelitis; multiple compression deformities throughout the thoracic spine, with no evidence of discitis, osteomyelitis or epidural collections Assessment/Plan ID Impression: Stable, with temperatures and white blood cell count remaining normal, off antibiotics, with the recent MRI of the spine negative for any evidence of osteomyelitis related to his sacral or buttock decubitI and with no evidence of any residual epidural collections in the thoracic spine. Given this result do not feel that the suppressive antibiotic treatment with Doxycycline and Rifampin needs to be resumed. As previously noted he was on a straight cath schedule in the past and is willing to try this again in place of the Orellana catheter. Suggestion: 1. Remove Orellana catheter and initiate straight cath protocol 2. Continue to follow off antibiotics
[2017-12-07 14:43] VITALS: BP 137/78
--- NOTE | 2017-12-07 15:33 | Discharge Summary ---
Visit Information Visit Dates Admission Date: 12/02/17 Discharge Date: 12/07/17 Hospital Course Course Attending Physician: Romelia Cobian MD Primary Care Physician: Dominguez Serrano MD Hospital Course: Mr. Park is a 59-year-old male with past medical history of atrial fibrillation on apixaban, LA status post 2 stents, COPD on 2 L nasal cannula, and paraplegia 2/2 MRSA spinal epidural abscess with an indwelling Orellana followed by Dr. Polk who presents with a clogged Orellana and dysuria of several day duration. On presentation to ED, vital signs were T 99.1, HR 88, RR 18, BP 160/74, saturating 97% on room air.. General: Patient appears stated age, alert and orientedx3. HEENT: PERRL. No goiter. No palpable lymph nodes. Cardiovascular: Regular rate and rhythm, no murmurs, rubs, or gallops. Lungs: Clear to auscultation bilaterally. Abdomen: Normal bowel sounds. Nontender to palpation in all four quadrants. Orellana draining yellow urine. Ext: No edema, pulses normal. Laboratories were significant for white blood cell count 19.7, hemoglobin 12.2, sodium 136, chloride 94, carbon dioxide 33, BUN 21, BNP 286. Urinalysis showed greater than 75 WBC. Chest x-ray showed atelectasis. He was admitted to general medicine and treated for the following problems: 1. Catheter associated urinary tract infection 2. Sacral Decubiti 3. Chronic Hypoxic Respiratory Failure #Catheter associated urinary tract infection - RESOLVED: Patient has grown Proteus resistant to ciprofloxacin in the past. He presented with dysuria and a clogged Orellana in the setting of leukocytosis without fever. His abdominal/ pelvis CAT scan showed no hydronephrosis or pyelonephritis. His urine culture grew Proteus, resistant to Cipro and nitrofurantoin. He was given ceftriaxone for 4 days, with good clinical improvement. His Orellana was discontinued, and he was initiated on a straight cath protocol which he will follow outpatient. #Sacral decubiti - Resolving, please continue with bandage changes and see wound care note: Patient has an unstageable sacral decubiti near the coccyx, present since prior to admission per patient. Wound care had seen him and recommended dressing changes. On a CAT scan recommended by urology for his catheter associated urinary tract infection, inflammation was seen near the ischial tuberosity. Patient underwent an MRI, which showed no evidence of osteomyelitis , and also showed no residual from his spinal epidural abscess 10 years prior. Thus, patient can now discontinue his suppressive therapy of rifampin and doxycycline for the spinal epidural abscess. #Chronic hypoxic respiratory failure - stable at baseline: Patient has COPD, on 2 L at home baseline. Patient did not have any exacerbations during this admission. Patient was stable, tolerated BiPAP at night. No need for steroids during this admission. #Afib - controlled : had no episodes of tachycardia, on apixaban for anticoagulation. Rate controlled with sotalol, metoprolol. He will be discharged to home with home health services, and will start self- catheterization. He will have follow up with PCP and Urologist upon discharge. Allergies: Coded Allergies: heparin (Intermediate, SWELLING, RASH 09/05/17) vancomycin (Intermediate, HIVES, SKIN CRACKES, TURNS RED, SWELLS AND PEELS 09/05) warfarin (From COUMADIN) (Intermediate, NOT EFFECTIVE CAN NOT GET LEVELS ABOVE 1 10/23/17) shellfish derived ("HIVES, RASH, TONGUE SWELLS" 12/06/17) Significant Procedures: MRI 12/07/17 MRI OF THE THORACIC AND LUMBAR SPINE WITHOUT CONTRAST CLINICAL INFORMATION: Paraplegic with incidental CT findings. Demonstrating a question of evolving decubitus ulcers versus cellulitis/soft tissue edema and inflammation in the posterior buttocks, with the inflammatory reaction extending down to the ischial tuberosities bilaterally. COMPARISON: None TECHNIQUE: Multiplanar multisequence MR imaging of the thoracic and lumbar spine is obtained without contrast. The patient could not tolerate the postcontrast portion of this study and many of the obtained thoracolumbar series are degraded by motion artifact. FINDINGS: THORACIC SPINE MRI: Stable midthoracic kyphosis centered at T6. Unchanged vertebral plana at T6. There is increased signal on T1 and T2-weighted imaging within between the T5 and T7 vertebral bodies corresponding to minimal residual T6 vertebral body in this location/vertebral plana. Stable chronic vertebral body height loss at the T5 and T7 levels. There is also stable mild chronic superior endplate height loss at the T11 and T12 levels. The remaining thoracic vertebral body heights are maintained. No marrow edema to suggest acute fractures. There is no evidence of osteomyelitis discitis nor septic facet arthritis. Thoracic cord morphology is normal. Nondiagnostic assessment for cord signal changes given the degree of artifact in the axial series. No thoracic cord compression is appreciated on the sagittal series. No epidural collections. T6 vertebral plana unchanged. There is stable appearing severe right and moderate left foraminal stenosis at T6-T7 secondary to disc osteophyte and facet arthropathy. Disc osteophyte and facet arthropathy result in similar moderate bilateral foraminal stenosis at T5-T6. LUMBAR SPINE MRI: Sacral decubitus ulcer identified on the previous CT is redemonstrated with adjacent soft tissue extending to the dorsal margin of the sacrococcygeal junction. The marrow within the sacrum and coccyx is preserved without evidence of osteomyelitis affecting these areas. There are 5 nonrib-bearing lumbar-type vertebral bodies. Chronic upper endplate compression deformities at the L1, L2, and L3 levels. No bone marrow edema to suggest acute fracture nor osteomyelitis discitis. No evidence of septic facet arthritis. The conus terminates at the L1 level. There is a Orellana catheter within the bladder. Gluteus muscular atrophy bilaterally. The bladder is thick-walled with a Orellana catheter in place which can be correlated with urinalysis. L1-L2: There is a small annular disc bulge without central canal stenosis and without foraminal stenosis. L2-L3: Small annular disc bulge and moderate bilateral facet arthropathy and ligamentum flavum thickening. There is no central canal stenosis and there is no foraminal stenosis. L3-L4: There is a diffuse annular disc bulge and there is moderate bilateral facet arthropathy and ligamentum flavum thickening. No significant central canal stenosis. Mild foraminal narrowing bilaterally. L4-L5: Diffuse annular disc bulge and moderate to severe bilateral facet arthropathy. No central canal stenosis. While foraminal narrowing bilaterally. L5-S1: Diffuse disc osteophyte complex and severe bilateral facet arthropathy. No central canal stenosis. Disc osteophyte and facet arthropathy result in severe right-sided foraminal stenosis with mass effect on the exiting right L5 nerve root. There is mild to moderate left foraminal stenosis. IMPRESSION: - This is a very limited study. The patient could not tolerate postcontrast imaging and many of the sequences are motion degraded, particularly the axial T2 series of the thoracic spine which is essentially nondiagnostic. - Redemonstrated sacral decubitus ulcer with adjacent soft tissue extending to the posterior margin of the sacrococcygeal junction. Normal fatty marrow within the sacrum and coccyx is maintained without MRI evidence of osteomyelitis. The level of questioned inflammatory changes beneath ischial tuberosities on both sides is not included on this exam. The imaged ischial tuberosities exhibit preserved marrow signal. - Within the thoracic spine there is a stable appearing chronic midthoracic kyphosis in the setting of chronic vertebra plana at T6. Multiple chronic compression deformities throughout the thoracic spine are stable as are multilevel degenerative changes that result in severe right and moderate left foraminal stenosis at T6-T7 and moderate bilateral foraminal stenosis at T5-T6. There is no severe central canal stenosis within the thoracic spine. No evidence of infection within the thoracic spine. - Multilevel lumbar spondylosis, greatest at L5-S1 were multifactorial degenerative changes result in moderate to severe right-sided foraminal stenosis with mass effect on the exiting right L5 nerve root. There is no evidence of infection within the lumbar spine. Chronic compression deformities within the lumbar spine as described. No acute fractures. - The bladder is thick-walled with a Orellana catheter in place which can be correlated with urinalysis. CT Abd/Pelvis 12/04/17 CT ABDOMEN AND PELVIS WITHOUT CONTRAST CLINICAL INFORMATION: Presented with clogged Orellnaa and dysuria. Rule out pyelonephritis or acute process. COMPARISON: CT scan of the chest dated 01/06/2017. CT scan of the abdomen and pelvis dated 04/06/2010. TECHNIQUE: Multidetector volumetric imaging was performed from the superior aspect of the liver through the pubic symphysis. Sagittal and coronal reformatted images were obtained on the technologist workstation. DLP: 1145.29 mGy-cm. FINDINGS: LUNG BASES: There is a small solid noncalcified pleural-based nodule in the right lower lobe (series 2, image 1), measuring 6 mm, unchanged from 12/09/2016 and 2 mm larger compared to 04/06/2010. This is of doubtful clinical significance. Some scattered areas of dependent parenchymal opacity is seen in both lower lobes, most consistent with atelectatic changes. No significant pleural effusion is seen. LIVER, GALLBLADDER, AND BILIARY TREE: The liver is normal in size, shape, and attenuation. No focal hepatic lesion on noncontrast imaging. No biliary ductal dilatation is present. This is likely a faintly calcified gallstone in the gallbladder neck region. The gallbladder is otherwise unremarkable. PANCREAS: Diffusely atrophic with fatty infiltration seen. Some calcific densities are noted within the pancreatic head, possibly vascular versus sequelae of previous chronic calcific pancreatitis similar findings were seen on prior imaging dating back to 2010. No discrete pancreatic mass. No peripancreatic stranding. SPLEEN, ADRENAL GLANDS: A 1 cm accessory splenule is seen in the splenic hilar region. Spleen and adrenal glands unremarkable on noncontrast imaging. KIDNEYS AND URETERS: The kidneys are normal in size, shape, and attenuation. No hydronephrosis or hydroureter seen. There are 2 tiny punctate calcific densities seen in the mid right kidney, most likely vascular in etiology. In the lower pole of the left kidney, a 0.4 cm nonobstructing calcification is seen new from prior exam, likely a nonobstructing stone. In addition, several punctate linearly oriented calcifications is seen in the upper pole, most likely vascular in etiology. No perinephric stranding. In the mid to upper left kidney, a partially exophytic 2.8 x 3.6 cm fluid attenuation mass is seen, consistent with a cyst, new compared to 2010. There is a 1.6 cm lower pole right renal cyst, larger compared to 1.2 cm in 2010. BLADDER: The bladder is 0.4 cm nonobstructing calculus is seen, new compared to the prior exam. Decompressed by Orellana catheter, likely accounting for the diffusely thick-walled appearance. No definite bladder calculi are seen. Evaluation of the bladder is, however, limited. PELVIC VISCERA: Unremarkable. GASTROINTESTINAL TRACT: The small and large bowel are unremarkable. The appendix is nonvisualized. ABDOMINAL WALL: There is extensive soft tissue edema and stranding seen in the posterior medial right buttock and to a lesser extent in the medial left buttock. Both of these areas of edema and stranding extend to the ischial tuberosity bilaterally. Close clinical correlation is requested to exclude pressure type injury with evolving decubitus ulcers or inflammation/cellulitis with extension to the underlying bone. No definite focal lytic lesion is seen involving the ischial tuberosities. There is a small fat-containing umbilical hernia. LYMPH NODES, VASCULAR: Moderate atherosclerotic calcifications of the aorta and branch vessels, including the coronary arteries is seen. No periaortic collections. An IVC filter is in place with tip at the distal left renal vein. OSSEOUS STRUCTURES: Diffuse osteopenia is seen. Mild wedge compression deformity of the L1 vertebral body is seen, unchanged from the 2010 exam. There is mild superior endplate compression of the L2 and L3 vertebral bodies, new/progressive compared to the prior exam. Moderate facet arthropathy is seen in the lower lumbar spine. There is a convex right lumbar curvature, likely positional. There is subtle sclerotic density in the femoral heads bilaterally, not significantly changed since 2010. IMPRESSION: 1. Nonobstructing mid left renal calcification, new from prior study. 2. Right renal calcifications are most likely vascular. 3. Bilaterally, no obstructing stone is seen. 4. Bilateral small renal cysts. 5. Other incidental findings include: a. A 6 mm pleural-based nodule in the right lower lobe, unchanged from 12/09/2016, most consistent with a benign etiology b. Probable faintly calcified gallstone in the gallbladder neck region. Gallbladder otherwise unremarkable. c. Atrophic fatty infiltrated pancreas. d. Question of evolving decubitus ulcers versus cellulitis/soft tissue edema and inflammation in the posterior buttocks, with the inflammatory reaction extending down to the ischial tuberosities bilaterally. e. Osteopenia with several compression deformities in the spine. Pertinent Lab Results: Urine Culture: > URINE CULTURE Final 12/05/17-1304 Approx. 10,000 colonies per ml of: PROTEUS MIRABILIS 1. PROTEUS MIRABILIS RX AB ------ -- AMPICILLIN S CEFAZOLIN S AMOXICILLIN/CLAVULINIC ACID S AMPICILLIN/SULBACTAM S CIPROFLOXACIN R GENTAMICIN S NITROFURANTOIN R TRIMETHOPRIM/SULFAMETHOXAZOLE S Disposition Summary Disposition Principal Diagnosis: Catheter Associated UTI Additional Diagnosis: Sacral Decubiti present prior to admission; Chronic Hypoxic Respiratory Failure; AFIB Discharge Disposition: home or self care Discharge Instructions General Discharge Information Code Status: Do Not Resucitate/Intubat Patient's Diet: As tolerated Patient's Activity: As tolerated Follow-Up Instructions/Appts: - Please follow up with your primary care physician within 1-2 weeks of discharge. Inform your primary care physician of this admission to [facility]. - Continue your current medications per discharge instructions. DISCONTINUE RIFAMPIN AND DOXYCYCLINE as prophylaxis. - Please watch for these problems: Fever, Chills, Nausea, Vomiting, Shortness of Breath, Productive Cough, Chest Pain/Discomfort, Abdominal Pain, Active Bleeding or Bloody urine/stool. Medications at Discharge Discharge Medications: Stop taking the following medications: Rifampin (Rifadin) 300 MG CAPSULE ORAL TWICE DAILY Qty = 60 Continue taking these medications: Furosemide (Furosemide) 20 MG TABLET 3 Tablet ORAL EVERY 48 HOURS (Every 2 days) Qty = 90 Comments: NOT GIVEN IN HOSPITAL Lactobacillus Acidophilus (Acidophilus) 1 EACH CAPSULE 1 Capsule ORAL TWICE DAILY Comments: NOT GIVEN WHILE IN HOSPITAL Magnesium Oxide (Magnesium) 400 MG CAPSULE 1 Capsule ORAL 0600 Comments: NOT GIVEN IN HOSPITAL Multivitamin (Daily Value) 1 EACH TABLET 1 Tablet ORAL DAILY Comments: NOT GIVEN WHILE IN HOSPITAL Ascorbate Calcium (Vitamin C) 500 MG TABLET 1 Tablet ORAL TWICE DAILY Comments: NOT GIVEN WHILE IN HOSPITAL Oxycodone HCl/Acetaminophen (Oxycodone-Acetaminophen 5-325) 5 MG-325 MG TABLET 1 Tablet ORAL Q4H as needed for PAIN Qty = 120 Comments: Last Taken: 10/03/17 Time: 5AM Baclofen (Baclofen) 20 MG TABLET 1 Tablet ORAL TWICE DAILY Qty = 150 Comments: Last Taken: 10/03/17 Time: 10AM Bisacodyl (Dulcolax) 10 MG SUPP.RECT 1 Suppository RECTAL EVERY 48 HOURS (Every 2 days) Comments: NOT GIVEN IN HOSPITAL Potassium Chloride (Potassium Chloride) 20 MEQ TAB.ER.PRT 1 Tablet ORAL DAILY Qty = 90 Comments: NOT GIVEN WHILE IN HOSPITAL Sotalol (Betapace) 80 MG TABLET 80 Milligram ORAL TWICE DAILY Qty = 60 Comments: Last Taken: 09/1417 Time: 10AM Apixaban (Eliquis) 5 MG TABLET 5 Milligram ORAL TWICE DAILY Qty = 60 Comments: Last Taken: 10/03/17 Time: 10AM Albuterol Sulfate (Ventolin Hfa) 90 MCG HFA.AER.AD 2 Puff Inhale through mouth As Directed as needed for COPD Qty = 18 Comments: Last Taken: 10/03/17 Time: 10AM Budesonide/Formoterol Fumarate (Symbicort 160-4.5 Mcg Inhaler) 160 MCG-4.5 MCG/ ACTUATION HFA.AER.AD 2 Puff Inhale through mouth TWICE DAILY Comments: Last Taken: 10/03/17 Time: 10AM Metoprolol Succ XL (Toprol XL) 25 MG TAB 1 Tablet ORAL DAILY Comments: Last Taken: 10/03/17 Time: 10AM Nortriptyline HCl (Nortriptyline HCl) 10 MG CAPSULE 1 Capsule ORAL DAILY Comments: Last Taken: 10/03/17 Time: 10AM Omeprazole (Omeprazole) 20 MG CAPSULE.DR 1 Capsule ORAL DAILY Comments: Last Taken: 10/03/17 Time: 10AM Evolocumab (Repatha Sureclick) 140 MG/ML PEN.INJCTR 1 Milliliters SC EVERY 2 WEEKS Comments: NOT GIVEN IN HOSPITAL Montelukast Sodium (Singulair) 10 MG TABLET 1 Tablet ORAL DAILY Comments: Last Taken: 10/02/17 Time: 10PM Tiotropium Lenore (Spiriva) 18 MCG CAP.W.DEV 1 Capsule Inhale through mouth DAILY Comments: Last Taken: 10/03/17 Time: 10AM Atomoxetine HCl (Strattera) 40 MG CAPSULE 1 Capsule ORAL Every Morning Comments: NOT GIVEN WHILE IN HOSPITAL Docusate Sodium (Stool Softener) 100 MG CAPSULE 1 Capsule ORAL DAILY Comments: Last Taken: 10/03/17 Time: 10AM Guaifenesin (Mucinex) 600 MG TAB.ER.12H 1 Tablet ORAL TWICE DAILY Comments: Last Taken: 10/03/17 Time: 10AM Hydroxyzine HCl (hydrOXYzine HCl) 10 MG TABLET 1 Tablet ORAL TWICE DAILY as needed for ANXIETY Qty = 20 Comments: NOT GIVEN IN HOSPITAL Gabapentin (Gabapentin) 300 MG CAPSULE 2 Capsule ORAL TWICE DAILY Qty = 60 Comments: Last Taken: 10/03/17 Time: 10AM Albuterol Sulfate (Albuterol Sulfate) 2.5 MG/3 ML (0.083 %) VIAL.NEB 1 Vial Inhale Solution EVERY 4 HOURS NEEDED as needed for COPD Qty = 150 Trazodone HCl (Trazodone HCl) 50 MG TABLET 1 Tablet ORAL TAKE AT BEDTIME Copies To: Zach VOGEL,Dominguez Gray
[2017-12-07 22:33] VITALS: BP 131/75
[2017-12-08 06:16] VITALS: BP 126/72
--- NOTE | 2017-12-08 07:03 | Patient Discharge Instructions ---
See Addendum Discharge Instructions General Discharge Information You were seen/treated for: Catheter Associated UTI Special Instructions: - Please follow up with your primary care physician within 1-2 weeks of discharge. Inform your primary care physician of this admission to [facility]. - Continue your current medications per discharge instructions. - Please watch for these problems: Fever, Chills, Nausea, Vomiting, Shortness of Breath, Productive Cough, Chest Pain/Discomfort, Abdominal Pain, Active Bleeding or Bloody urine/stool. Acute Coronary Syndrome Inclusion Criteria At DC or during hospital stay patient has or had the following: ACS DIAGNOSIS No Discharge Core Measures Meds if any: Prescribed or Continued at Discharge Meds if any: NOT Prescribed or Continued at Discharge Congestive Heart Failure Inclusion Criteria At DC or during hospital stay patient has or had the following: CHF DIAGNOSIS No Discharge Core Measures Meds if any: Prescribed or Continued at Discharge Meds if any: NOT Prescribed or Continued at Discharge Cerebrovascular accident Inclusion Criteria At DC or during hospital stay patient has or had the following: CVA/TIA Diagnosis No Discharge Core Measures Meds if any: Prescribed or Continued at Discharge Meds if any: NOT Prescribed or Continued at Discharge Venous thromboembolism Inclusion Criteria VTE Diagnosis No VTE Type NONE VTE Confirmed by (Test) NONE Discharge Core Measures - Per Current guidelines, there needs to be overlap - treatment for the first 5 days of Warfarin therapy. - If discharged on Warfarin prior to 5 days of - overlap therapy, the patient will need to be - assessed for post discharge needs including - *Post discharge parental anticoagulation - *Warfarin and/or parental anticoagulation education - *Follow up date to check INR post discharge At least 5 days overlap therapy as Inpatient No Meds if any: Prescribed or Continued at Discharge Note: Overlap Therapy is Warfarin and Anticoagulant Meds if any: NOT Prescribed or Continued at Discharge
--- NOTE | 2017-12-08 07:13 | PN- Housestaff ---
See Addendum Subjective Follow-up For: Catheter associated UTI, Sacral Ulcer Subjective: Patient seen and a bedside. Patient was informed his MRI results, he was pleased with his results. Patient states he is ready for discharge today. Patient has been tolerating straight catheterization, states that he has been leaking intermittently. Patient states that he needs to increase the frequency of straight catheterization. Patient states that he BladderScan last night had 80 mL post residual. Patient states at home he usually self catheterizes every 3 hours minimum. Patient denied fever/chills/night sweats/chest pain/abdominal pain/urinary symptoms/lower extremity edema. Review of Systems Constitutional: Reports: see HPI. Objective Last 24 Hrs of Vital Signs/I&O Vital Signs Date Time Temp Pulse Resp B/P B/P Pulse O2 O2 Flow FiO2 Mean Ox Delivery Rate 12/08 0913 66 110/60 12/08 0811 100 Nasal 2.0L Cannula 12/08 0616 97.5 59 18 126/72 92 Nasal 2.0L Cannula 12/08 0024 65 97 12/08 0000 BIPAP 30% 12/07 2233 97.7 98 20 131/75 96 Nasal 2.0L Cannula 12/07 2213 84 98 12/07 2040 95 Nasal 2.0L Cannula 12/07 1600 98 Nasal 2.0L Cannula 12/07 1443 98.4 76 20 137/78 100 Nasal 2.0L Cannula 12/07 1244 96 Nasal 2.0L Cannula Intake & Output 12/08 1600 12/08 0800 12/08 0000 Intake Total 200 610 Output Total Balance 200 610 Intake, IV 10 Intake, Oral 200 600 Number 2 1 Bowel Movements Patient 222 lb Weight Physical Exam General Appearance: Alert, Oriented X3, Cooperative, No Acute Distress Skin: sacral decubiti Skin Temp/Moisture Exam: Warm/Dry Cardiovascular: Regular Rate, Normal S1, Normal S2 Lungs: Clear to Auscultation, Normal Air Movement Abdomen: Soft, No Tenderness Neurological: Normal Speech Extremities: No Edema Current Medications: Current Medications Sig/Danni Start time Last Medication Dose Route Stop Time Status Admin Acetaminophen 650 MG Q6P PRN 12/02 2345 AC 12/05 PO 2149 Albuterol Sulfate 3 ML EVERY 4 HRS/AWAKE 12/04 1999 AC 12/08 INH 0801 Albuterol Sulfate 2 PUF Q6P PRN 12/02 2345 AC INH Apixaban 5 MG BID 12/03 0900 AC 12/08 PO 0913 Baclofen 20 MG BID 12/03 0900 AC 12/08 PO 0913 Bisacodyl 10 MG Q48 12/03 1645 AC 12/07 DC 1442 Budesonide/ 2 PUF BID 12/03 0900 AC 12/08 Formoterol Fumarate INH 0914 Docusate Sodium 100 MG DAILY 12/03 0900 AC 12/08 PO 0913 Furosemide 60 MG Q48 12/03 1800 AC 12/07 PO 0910 Gabapentin 600 MG BID 12/03 0900 AC 12/08 PO 0913 Guaifenesin 600 MG BID 12/03 0900 AC 12/08 PO 0913 Hydroxyzine HCl 10 MG BID PRN 12/02 2345 AC PO Lorazepam 2 MG ONE PRN 12/07 0945 AC 12/07 IV 1111 Magnesium Oxide 400 MG DAILY 12/03 0900 AC 12/08 PO 0913 Metoprolol Succinate 25 MG DAILY 12/03 0900 AC 12/08 PO 0913 Montelukast Sodium 10 MG DAILY 12/03 0900 AC 12/08 PO 0913 Nortriptyline HCl 10 MG DAILY 12/03 0900 AC 12/08 PO 0913 Omeprazole 20 MG DAILY 12/03 0900 AC 12/08 PO 0913 Oxycodone/ 1 TAB Q4H PRN 12/02 2345 AC 12/08 Acetaminophen PO 1102 Potassium Chloride 20 MEQ DAILY 12/03 0900 AC 12/08 PO 0913 Sotalol HCl 80 MG BID 12/03 0900 AC 12/08 PO 0913 Tiotropium [place] 1 PUF DAILY 12/03 0900 AC 12/08 INH 0914 Assessment/Plan Assessment: Mr. Park is a 67-year-old male with past medical history of atrial fibrillation on apixaban, [place] status post 2 stents, COPD on 2 L nasal cannula, and paraplegia with an indwelling Orellana followed by Dr. Polk who presents with a clogged [place] and dysuria of several day duration. Being treated for catheter associated UTI #Bedsores (prior to admission)sacral ulcer, unstageable on coccyx and stage II pressure injury to right buttockresolving on 12/04. -ID consult appreciated. 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 home today, off rifampin and doxycycline ppx. -On decubiti precautions #Catheter associated UTI - resolved outpatient. have resolved, patient was being adequately treated for it. negative for pyelonephritis or reflux. -Leukocytosis 15.5 trended down to 10.6 to 9.7 today. Resolved. #Chronic hypoxic respiratory failure secondary to COPD (on 2 L home oxygen) stable at baseline DVT prophylaxis IV access Tolerating regular diet Disposition-discharge today DNR/DNI Problem List: 1. COPD (chronic obstructive pulmonary disease) 2. UTI (urinary tract infection) Pain Ratin Pain Location: na Pain Goal: Pain 4 or less Pain Plan: pathway [facility] Labs & Rationales: na
[2017-12-08 14:01] VITALS: BP 108/52
== END 2017-12-08 17:17 | disposition home health service (06) | DRG 699 ==
LOC: ERH 18:35 → 2NB 23:34 → ERHI 23:34 → ENRESERV 12-03 00:14 → 2NB 12-03 01:05 → ENPENDDIS 12-08 10:49 → 2NB 12-08 17:17
PROVIDERS: Internal Medicine; Physical Medicine & Rehabilitation; Physician Assistant
PROC: 5A09457 Assistance with Respiratory Ventilation, 24-96 Consecutive Hours, Continuous Positive Airway Pressure (ICD-10-PCS; principal; 2017-12-03)
DX: T83.511A Infection and inflammatory reaction due to indwelling urethral catheter, initial encounter (principal); G82.20 Paraplegia, unspecified; B18.8 Other chronic viral hepatitis; J96.11 Chronic respiratory failure with hypoxia; N31.9 Neuromuscular dysfunction of bladder, unspecified; L89.312 Pressure ulcer of right buttock, stage 2; L89.150 Pressure ulcer of sacral region, unstageable; J44.9 Chronic obstructive pulmonary disease, unspecified; Z99.81 Dependence on supplemental oxygen; Z79.01 Long term (current) use of anticoagulants; I25.2 Old myocardial infarction; Z98.61 Coronary angioplasty status; I10 Essential (primary) hypertension; E78.5 Hyperlipidemia, unspecified; Z66 Do not resuscitate; Z79.51 Long term (current) use of inhaled steroids; F41.9 Anxiety disorder, unspecified; Z88.1 Allergy status to other antibiotic agents; Z88.8 Allergy status to other drugs, medicaments and biological substances; E66.9 Obesity, unspecified; Z68.32 Body mass index [BMI] 32.0-32.9, adult; G47.33 Obstructive sleep apnea (adult) (pediatric)
CPT/HCPCS: 2NBP; 72146; 72148; ERO; 36415; 36592; 71046; 74176; 81001; 82436; 87086; 93005; 93010; 96374; 96375; J0456; J0696; J3490; J7040; J7120; J7512